=== PATIENT | female | born 1945 | race Caucasian/White ===

== ENCOUNTER 2022-08-16 12:44 | Inpatient (IN) | payer MEDICARE, SELFPAY ==
[2022-08-16] VITALS (12 sets, daily range): BP systolic 125–147; BP diastolic 51–89; PULSE 70–92; RESP 14–20; TEMP 36.2–38.8; O2SAT 81–100; BMI 15.4; BMI 16.2
--- NOTE | 2022-08-16 12:48 | CT_ITS ---
We are attempting to reach an attending provider to discuss findings. An addendum with communication details will be sent when the communication is complete. EXAM: CT HEAD WITHOUT INTRAVENOUS CONTRAST CLINICAL INDICATION: Neuro deficit, acute, stroke suspected TECHNIQUE: Multiple axial images were obtained of the head without intravenous contrast. This CT exam was performed using one or more of the following dose reduction techniques: automated exposure control, adjustment of the mA and/or kV according to patient size, and/or use of iterative reconstruction technique. This report was created using [employer] technology. COMPARISON: None. FINDINGS: BRAIN AND EXTRA-AXIAL SPACES: Areas of diminished white matter density noted within both cerebral hemispheres suggestive of chronic microvascular change. Prominence of the cortical sulci and ventricles related to volume loss change. No intra- or extra-axial hemorrhage. No evidence of acute infarct. No intracranial mass or mass effect. There is preservation of the chavez/white matter interface. Posterior fossa structures are unremarkable. Basal cisterns are patent. BONES/JOINTS: No suspicious lytic or blastic abnormality. SINUSES: No acute sinusitis. MASTOID AIR CELLS: Normal. Clear. ORBITS: Visualized globes, extraocular muscles, optic nerves and retrobulbar fat appear unremarkable. CT/STROKE Brain/Head without Cont IMPRESSION: 1. No acute intracranial abnormality. 2. Senescent changes. Aspect score 10. Electronically Signed: Jordan Ivan MD at 13:00 EDT ,
--- NOTE | 2022-08-16 12:48 | CT_ITS ---
We are attempting to reach an attending provider to discuss findings. An addendum with communication details will be sent when the communication is complete. INDICATION: Neuro deficit, acute, stroke suspected EXAMINATION: CTA HEAD - CTA Head and Neck W/ Contrast Injection (and W/O Contrast Images if performed) TECHNIQUE: [place]/head CT angiogram protocol was performed following IV contrast. Routine carotid CT angiogram protocol was performed without and with IV contrast. NASCET criteria using the distal ICAs for comparison were used for evaluation of stenoses. 3D reconstructions were reviewed of the CT angiogram head and neck. A radiation dose optimization technique was used for this scan. IV Contrast dosage and agent: 100 cc [id number] COMPARISON: None. FINDINGS: --Anterior cerebral circulation: ACAs: No significant stenosis at the visualized segments. ACOM: Absent. MCAs: No significant stenosis at the visualized segments. --Posterior cerebral circulation: PCOMs: Absent referral nurse: No significant stenosis at the visualized segments. BASILAR ARTERY: No significant stenosis. --Carotid and vertebral circulation: AORTIC ARCH AND BRANCHES: Normal anatomy, patent. RIGHT CCA: No occlusion, significant stenosis or dissection. RIGHT ICA: No occlusion, significant stenosis or dissection. LEFT CCA: No occlusion, significant stenosis or dissection. LEFT ICA: Minor calcific plaquing at the origin. No occlusion, significant stenosis or dissection. RIGHT VERTEBRAL ARTERY: No occlusion, significant stenosis or dissection. LEFT VERTEBRAL ARTERY: No occlusion, significant stenosis or dissection. NECK SOFT TISSUES: Unremarkable. LUNG APICES: Clear. BONES: Unremarkable. CT/STROKE CTA Head AND Neck W/Con IMPRESSION: Unremarkable CTA Head and Neck. Electronically Signed: Jordan Ivan MD at 13:10 EDT ,
--- NOTE | 2022-08-16 12:48 | EKG12_ITS ---
Test Reason : POSS STROKE Blood Pressure : / mmHG Vent. Rate : 078 BPM Atrial Rate : 078 BPM P-R Int : 194 ms QRS Dur : 096 ms QT Int : 380 ms P-R-T Axes : 074 -76 077 degrees QTc Int : 433 ms Normal sinus rhythm Left axis deviation Abnormal ECG Confirmed by LASHANDA LEMUS, CHILANGO ([id number]), videotape editor MAHESH MCCORMACK ([id number]) on 08/18/2022 10:01:18 AM Referred By: Confirmed By:CHILANGO PYLE MD
--- NOTE | 2022-08-16 13:04 | CM.ED ---
Social Work Note Referral Source: stroke alert Referral Reason: emotional support SW responded to stroke alert and met with patient's and daughter. SW introduced herself and role as [facility] [employer] Steamer Tender and explained SW responds to provide family with support. Patient's and daughter briefly engaged in conversation, but report no needs at this time. SW remains available if needs arise. Alexia Nava LOBBYIST, BI
[2022-08-16 13:06] LABS: Absolute Lymphocyte Count 0.97 X10^3/uL (0.83-4.51); Absolute Neutrophil Count 2.4 X10^3/uL (2.0-7.7); Basophil# 0.05 X10^3/uL; Basophil% 1.2 % (0-1); Eosinophil# 0.06 X10^3/uL; Eosinophils% 1.5 % (0-5); Hematocrit 38.4 % (37-47); Hemoglobin 13.3 g/dL (12.0-15.0); Lymphocyte # 0.97 X10^3/ul (0.83-4.51); Lymphocyte % 24.2 % (19-41); Mean Corp Hgb Conc 34.6 g/dL (32-36); Mean Corpuscular Hgb 32.9 pg (27.0-32.0); Mean Platelet Vol. 10.1 fl (6.2-12.0); Monocyte# 0.51 X10^3/uL; Monocyte% 12.7 % (0-10); NRBC Flagged by Analyzer 0 % (0-5); Neutrophil % 59.9 % (47-70); Platelet Count 177 K/mm3 (150-450); RBC Distribution Width CV 11.5 % (11.6-14.6); RBC Distribution Width SD 40.1 fl (35.1-43.9); Red Blood Count 4.04 M/mm3 (4.2-5.4)
[2022-08-16 13:16] LABS: International Normalized Ratio 1.1; Partial Thromboplast Time 25.6 Seconds (24.1-36.2); Prothrombin Time (Protime)PT. 13.4 SECONDS (11.7-14.9)
[2022-08-16] MEDS: LORazepam 2 MG/ML Syringe 0.5 MG IV ×4 (13:20→19:18)
[2022-08-16 13:23] LABS: Anion Gap 8 (5-15); BUN 10 mg/dL (7-18); BUN/Creat Ratio 20.2 RATIO (10-20); Calcium,Total 8.8 mg/dL (8.5-10.1); Chloride 89 mmol/L (98-107); EST Glomerular Filtration Rate 128 mL/min (>60); Est Glom Filt Rate - Afr Amer 155 mL/min (>60); Estimated Creatinine Clearance 30.81 ml/min; Glucose 135 mg/dL (74-106); Potassium 3.6 mmol/L (3.5-5.1); Sodium Level 127 mmol/L (136-145); Troponin-I HS 8 pg/mL (3.0-54.0)
[2022-08-16 13:49] LABS: Bacteria 0 SEEN /hpf (None Seen); Mucous, Urine 0 SEEN /hpf (<or=2+); Red Blood Cells-Urine 0 SEEN /hpf (0-5); Squamous Epithelial Cells - UA 0 SEEN /hpf (5-10); White Blood Cells 0 SEEN /hpf (0-5)
[2022-08-16 13:51] LABS: Color, Urine Yellow (Yellow); Glucose, Dipstick Normal (Normal); Ketone-Dipstick Negative (Negative); Leukocyte Esterase-Dipstick Negative /ul (Negative); Nitrite-Dipstick Negative (Negative); Occult Blood-Urine Negative /ul (Negative); Protein-Dipstick Negative (Negative); Specific Gravity, Urine 1.015 (1.002-1.030); Urine Bilirubin Dipstick Negative (Negative); Urine Clarity Clear (Clear); Urine Urobilinogen Normal (Normal)
[2022-08-16 14:00] LABS: AST(SGOT) 29 U/L (15-37); Alanine Aminotransfer ALT/SGPT 39 U/L (13-56); Albumin, Serum 4.2 g/dL (3.2-5.0); Alkaline Phosphatase 64 U/L (45-117); Bilirubin, Direct 0.18 mg/dL (0.00-0.30); Globulin 2.4 g/dL (2.2-4.2); Protein, Total 6.6 g/dL (6.4-8.2)
--- NOTE | 2022-08-16 14:00 | ED.RN ---
THIS RN SPOKE WITH . NOTIFIED OF LOW SODIUM LEVEL AND THAT PATIENT HAD TO HAVE A ZEE PLACED DUE TO HER INCONTINENCE, ACUITY AND CONFUSION. DR. RAIN STATES OK TO DISCONTINUE NIH
[2022-08-16 14:08] LABS: Ammonia < 10.0 umol/L (11-32)
--- NOTE | 2022-08-16 14:17 | ED.VIS.STROK ---
HPI History of Present Illness Chief Complaint: Stroke Alert Informant: spouse/S.O. Onset/Context/Timing Onset: Today Context: Sudden Onset Timing: Continuous Quality and Location: Positive for Expressive Aphasia Onset: 11 AM today Worsened by: Nothing Relieved by: Nothing Associated Symptoms Associated Symptoms: Negative for Headache, Nausea, Vomiting or Chest Pain Narrative Narrative: Patient presents with sudden onset of confusion that began today. states patient was acting normally at 11 AM. states that he left and came back home at approximately 11:15 AM. states that she was confused and would only answer thank youto his questions. states the patient had an episode of stool incontinence and she was weak in both legs. states she had difficulty standing. Upon arrival here, the patient was able to stand and pivot into a wheelchair. denies any unilateral weakness. Patient is confused and is a poor informant. Patient is only answers thank you to any questions. [facility] Medical History Anxiety Home Medications lorazepam 0.5 mg tablet (Ativan) 0.5 mg PO QHS PRN Anxiety 08/16/22 [History Last Taken Unknown] Allergy/AdvReac Type Severity Reaction Status Date / Time lactose [dairy lactose] AdvReac Food Verified 08/16/22 12:55 Allergy Surgical History Hx of hysterectomy Social History (Updated 08/16/22 @ 14:[address] Kalin Macedo DO) Smoking Status: Former smoker alcohol intake: former year quit: 2022 details: Recently quit drinking alcohol 2-3 weeks ago. ROS ROS ED ROS Narrative Review of systems was obtained from family. Constitutional Constitutional ED: Denies chills or fever(s) Eyes Eyes: Denies blurry vision or change in vision ENT ENT ED: Denies rhinorrhea or sore throat Cardiovascular Cardiovascular: Denies chest pain or palpitations Respiratory/Chest Respiratory/Chest: Denies cough or dyspnea Gastrointestinal Gastrointestinal: Denies nausea or vomiting Genitourinary Genitourinary ED: Denies dysuria or hematuria Musculoskeletal Musculoskeletal: Denies back pain or neck pain Integumentary Denies abscess or rash Neurologic Neurologic: Denies headache(s) or weakness Allergic/Immunologic Allergic/Immunologic ED: Denies mouth swelling or urticaria EXAM Physical Exam Const Vital Signs: 08/16/22 12:46 08/16/22 12:49 08/16/22 12:53 Temperature 97.2 F L Temperature Source Temporal Pulse Rate 70 70 Respiratory Rate 16 14 Blood Pressure 147/67 H 147/67 H Blood Pressure Mean 93 93 Pulse Ox 100 100 100 Oxygen Delivery Method Room Air Room Air Room Air Oxygen Flow Rate (L/min) 08/16/22 13:03 08/16/22 14:11 08/16/22 14:44 Temperature Temperature Source Pulse Rate 87 82 Respiratory Rate 17 16 Blood Pressure 145/74 H 127/68 H Blood Pressure Mean 97 87 Pulse Ox 99 98 81 Oxygen Delivery Method Room Air Room Air Oxygen Flow Rate (L/min) 08/16/22 14:44 Temperature Temperature Source Pulse Rate Respiratory Rate Blood Pressure Blood Pressure Mean Pulse Ox 98 Oxygen Delivery Method Nasal Cannula Oxygen Flow Rate (L/min) 2 Positive well nourished and well developed General Appearance ED: well developed and NAD HEENT Reports moist mucous membranes Eyes PERRL and EOMs intact bilaterally Neck supple and no JVD Chest Wall inspection of chest normal and palpation of chest normal Resp normal respiratory effort and clear to auscultation bilaterally Cardio Rate: regular rate Rhythm: regular rhythm GI normal to inspection, nondistended, normoactive bowel sounds, soft to palpation, non-tender and non-distended Neuro CN's II-XII intact bilaterally and no sensory deficits noted Og Coma Scale: document GCS findings Spontaneous Obeys Commands Confused 14 Sensorium / Orientation: alert, oriented to person and confused Speech: speech normal Motor Exam: strength 5/5 throughout NIHSS NIHSS Initial: 1a Level of Consciousness: 1 1b LOC Questions (Score 2 if aphasic/stupor): 1 1c LOC Commands (Only score 1st attempt): 1 2 Best Gaze (If aphasic, use reflexive mvmts.): 0 3 Visual: 0 4 Facial Palsy: 0 5 Motor Arm Right (UN = amputation/fusion): 0 5 Motor Arm Left: 0 6 Motor Leg Right: 0 6 Motor Leg Left: 0 8 Sensory (Aphasia/stupor=0 or 1, coma=2): 0 9 Best Language: 0 11 Extinction and Inattention (only scored if +): 0 Total Score: 3 MDM MDM MDM Narrative Medical decision making narrative: Due to the sudden onset of the confusion within the last 3 hours, stroke alert was called. Differential diagnosis includes stroke, intracranial bleeding, cardiac dysrhythmia, cardiac ischemia, electrolyte abnormality, renal failure, encephalopathy, infection, sepsis, and delirium tremens. CT scan of the brain will be obtained to assess for intracranial bleeding. CTA of the head and neck will be obtained to assess for large vessel occlusion and carotid stenosis. EKG will be obtained to assess for cardiac dysrhythmia and cardiac ischemia. CBC will be obtained to assess for leukocytosis and anemia. Basic metabolic profile will be obtained to assess for renal function and electrolyte abnormality. Hepatic profile will be obtained to assess for hepatic function. Ammonia level will be obtained to assess for hepatic encephalopathy. PT was INR and PTT will be obtained to assess for coagulopathy. High-sensitivity troponin will be obtained to assess for cardiac ischemia. Urinalysis will be obtained to assess for urinary tract infection and hematuria. COVID-19 rapid antigen will be obtained to assess for COVID infection. Influenza A and influenza B antigens will be obtained to assess for influenza infection. Arterial blood gas will be obtained to assess for hypercarbia. Lactic acid will be obtained to assess for sepsis. Lab Data Attestation: I reviewed the patient's lab results. Lab results narrative: CBC was reviewed. White blood cell count was slightly low at 4.0. The remainder was within normal limits. Basic metabolic profile was reviewed. Sodium was low at 127 and chloride was low at 89. Renal function was within normal limits. Glucose was normal at 135. High-sensitivity troponin was normal at 8. PT with INR and PTT were within normal limits. Hepatic profile was reviewed and was within normal limits. Serum ammonia level was reviewed and was less than 10. Urinalysis was reviewed and does not show any evidence of urinary tract infection or hematuria. Lactate was reviewed and was slightly elevated at 2.1. COVID-19 rapid antigen was reviewed and was negative. Influenza A and influenza B antigens were reviewed and were negative. Arterial blood gas was reviewed and shows a pH of 7.407, PCO2 of 49.3, PO2 of 77.5, bicarb of 31, and oxygen saturation of 95.2% on room air. Labs: Laboratory Results - last 24 hr 08/16/22 08/16/22 08/16/22 12:45 12:45 12:45 WBC 4.0 L RBC 4.04 L Hgb 13.3 Hct 38.4 MCV 95.0 MCH 32.9 H MCHC 34.6 RDW Std Deviation 40.1 RDW Coeff of Bruna 11.5 L Plt Count 177 MPV 10.1 Immature Gran % (Auto) 0.500 Neut % (Auto) 59.9 Lymph % (Auto) 24.2 [place] % (Auto) 12.7 H Eos % (Auto) 1.5 Baso % (Auto) 1.2 H Absolute Neuts (auto) 2.4 Absolute Lymphs (auto) 0.97 Nucleated RBC % 0 PT 13.4 INR 1.1 APTT 25.6 Sodium 127 L Potassium 3.6 Chloride 89 L Carbon Dioxide 30.0 Anion Gap 8 BUN 10 Creatinine 0.50 L Estim Creat Clear Calc 30.81 Est GFR (MDRD) Af Amer 155 Est GFR (MDRD) Non-Af 128 BUN/Creatinine Ratio 20.2 H Glucose 135 H Lactic Acid Calcium 8.8 Total Bilirubin Direct Bilirubin AST ALT Alkaline Phosphatase Ammonia Troponin I High Sens 8 Total Protein Albumin Globulin Urine Color Urine Clarity Urine pH Ur Specific [place] Urine Protein Urine Glucose (UA) Urine Ketones Urine Occult Blood Urine Nitrite Urine Bilirubin Urine Urobilinogen Ur Leukocyte Esterase Urine RBC Urine WBC Ur Squamous Epith Cells Urine Bacteria Urine Mucus 08/16/22 08/16/22 08/16/22 12:45 13:30 13:30 WBC RBC Hgb Hct MCV MCH MCHC RDW Std Deviation RDW Coeff of Bruna Plt Count MPV Immature Gran % (Auto) Neut % (Auto) Lymph % (Auto) [place] % (Auto) Eos % (Auto) Baso % (Auto) Absolute Neuts (auto) Absolute Lymphs (auto) Nucleated RBC % PT INR APTT Sodium Potassium Chloride Carbon Dioxide Anion Gap BUN Creatinine Estim Creat Clear Calc Est GFR (MDRD) Af Amer Est GFR (MDRD) Non-Af BUN/Creatinine Ratio Glucose Lactic Acid 2.1 H* Calcium Total Bilirubin 0.50 Direct Bilirubin 0.18 AST 29 ALT 39 Alkaline Phosphatase 64 Ammonia < 10.0 L Troponin I High Sens Total Protein 6.6 Albumin 4.2 Globulin 2.4 Urine Color Urine Clarity Urine pH Ur Specific [place] Urine Protein Urine Glucose (UA) Urine Ketones Urine Occult Blood Urine Nitrite Urine Bilirubin Urine Urobilinogen Ur Leukocyte Esterase Urine RBC Urine WBC Ur Squamous Epith Cells Urine Bacteria Urine Mucus 08/16/22 13:40 WBC RBC Hgb Hct MCV MCH MCHC RDW Std Deviation RDW Coeff of Bruna Plt Count MPV Immature Gran % (Auto) Neut % (Auto) Lymph % (Auto) [place] % (Auto) Eos % (Auto) Baso % (Auto) Absolute Neuts (auto) Absolute Lymphs (auto) Nucleated RBC % PT INR APTT Sodium Potassium Chloride Carbon Dioxide Anion Gap BUN Creatinine Estim Creat Clear Calc Est GFR (MDRD) Af Amer Est GFR (MDRD) Non-Af BUN/Creatinine Ratio Glucose Lactic Acid Calcium Total Bilirubin Direct Bilirubin AST ALT Alkaline Phosphatase Ammonia Troponin I High Sens Total Protein Albumin Globulin Urine Color Yellow Urine Clarity Clear Urine pH 8.0 Ur Specific [place] 1.015 Urine Protein Negative Urine Glucose (UA) Normal Urine Ketones Negative Urine Occult Blood Negative Urine Nitrite Negative Urine Bilirubin Negative Urine Urobilinogen Normal Ur Leukocyte Esterase Negative Urine RBC 0 SEEN Urine WBC 0 SEEN Ur Squamous Epith Cells 0 SEEN Urine Bacteria 0 SEEN Urine Mucus 0 SEEN ABG Data ABG results: ABG 08/16/22 14:30 Specimen Type ART pH 7.41 Bicarbonate Actual 31.0 H Total CO2 33 Base Excess 6 H O2 Saturation 95 ABG pCO2 49.3 H ABG pO2 78 O2 Delivery Device Room Air Radiography Chest X-Ray - ED: 1 View, Read by ED Physician, Read by Radiologist and No Acute Disease Diagnostic Testing: Clinical Impression(s) from Imaging Studies Brain CT 08/16/22 12:48 IMPRESSION: 1. No acute intracranial abnormality. 2. Senescent changes. Aspect score 10. Electronically Signed: Jordan Ivan MD at 13:00 EDT Reading Location ID and State: [id number] Tel , Service support , ADDENDUM: 08/16/22 1308 IMPRESSION: 1. No acute intracranial abnormality. 2. Senescent changes. Aspect score 10. N.B. : The above Results were Read Back by Jordan Ivan MD to Kalin Macedo DO, and understanding confirmed on 08/16/2022 13:01:59 (ET). Electronically Signed: Jordan Ivan MD at 13:00 EDT , Head/Neck CTA 08/16/22 12:48 IMPRESSION: Unremarkable CTA Head and Neck. Electronically Signed: Jordan Ivan MD at 13:10 EDT , ADDENDUM: 08/16/22 1322 IMPRESSION: Unremarkable CTA Head and Neck. N.B. : The above Results were Read Back by Jordan Ivan MD to Kalin Mcaedo DO, and understanding confirmed on 08/16/2022 13:15:30 (ET). Electronically Signed: Jordan Ivan MD at 13:10 EDT , Chest X-Ray 08/16/22 14:25 IMPRESSION: No acute cardiopulmonary disease. Electronically Signed: Jordan Ivan MD at 14:44 EDT , CT scan of the brain was obtained. There is no acute intracranial abnormality. This was interpreted by the radiologist and was also independently reviewed by myself. CTA of the head and neck was obtained. There is no evidence of large vessel occlusion. There is no evidence of carotid or vertebral stenosis. This was interpreted by the radiologist and was also independently reviewed by myself. Portable 1 view chest x-ray was obtained. On my independent interpretation, lung marsh are clear. There is normal cardiac silhouette. Bony thorax is normal. There is no acute process noted. Radiologist also interpreted the x-ray and agrees. EKG Initial EKG: Attestation: I personally reviewed and interpreted this EKG as follows: Interpretation: Sinus Rhythm (78) and No Acute Injury Pattern Comments: EKG was obtained. On my independent interpretation, it showed a normal sinus rhythm with a rate of 78. [place] interval, QRS interval, and QTc intervals were all normal. There is left axis deviation at -76. There are no acute ST or T wave changes. Prior EKG tracings: not available for review Prior: No Prior Management Discussion w/another healthcare provider: Hospitalist, Termite Technician (Stroke neurologist) and Radiologist Treatment and Re-Evaluation Narrative: Case was discussed with the stroke neurologist Dr. Jo. He felt that this was not an acute stroke and did not recommend any thrombolytics. He felt that the patient could be admitted here and work-up for encephalopathy. He did also recommend obtaining a follow-up MRI. Patient was given IV fluids. Patient was given a dose of Ativan for her agitation. Patient was also given a dose of thiamine and folate for possible Warnicke's encephalopathy since she just recently stopped ranking alcohol 3 weeks ago. Patient is still confused on reevaluation. Patient was given a repeat dose of Ativan. Case was discussed with the hospitalist, Dr. Rico. She will admit the patient to PCU. Family understands and is agreeable with the plan. All questions were answered. Critical Care Time Critical Care Time: Yes Critical care time (excluding procedures): 30-74 minutes (37), Including time spent:, Discussing w/Patient &/or Family/Software Packager, Discussing w/Consultants, Arranging Admission or Transfer and Performing Direct Patient Care at Bedside Discharge Plan Dx/Rx/DC Orders Clinical Impression: Acute confusion, Encephalopathy acute Disposition Disposition: Acute Care [facility]
[2022-08-16 14:18] LABS: Lactic Acid 2.1 mmol/L (0.4-1.9)
[2022-08-16] MEDS: 0.9% Normal Saline 1,000 ML 1000 ML IV (14:24)
--- NOTE | 2022-08-16 14:25 | RAD_ITS ---
EXAM: XR CHEST, 1 VIEW CLINICAL INDICATION: Neuro deficit, acute, stroke suspected TECHNIQUE: Frontal view of the chest. This report was created using [employer] report generation technology. COMPARISON: None. FINDINGS: LUNGS AND PLEURAL SPACES: Normal. No consolidation or edema. No pneumothorax. No effusion. HEART: Normal heart size. MEDIASTINUM: No mediastinal or hilar mass. BONES/JOINTS: No acute abnormality. SOFT TISSUES: Normal. RAD/Chest 1 View IMPRESSION: No acute cardiopulmonary disease. Electronically Signed: Jordan Ivan MD at 14:44 EDT ,
[2022-08-16 14:35] LABS: Base Excess 6 mmol/L (-2 to +2); Blood Gas Specimen Type ART; O2 Delivery Device Room Air; PO2 78 mmHG (75-100); SO2 95 % (95-99); Total Carbon Dioxide 33 mmol/L; pCO2 49.3 mmHg (35-45); pH 7.41 (7.35-7.45)
--- NOTE | 2022-08-16 15:37 | HP.PCM.HOS_ITS ---
HPI - General General Date of Admission: 08/16/22 Date of Service: 08/16/22 Chief Complaint: AMS HPI Narrative RADHA NURSE, is a Radha Nurse is a 76y/o female w/ hx of anxiety who prsented to [facility] 08/16/22 as a stroke alert. She was in her normal health at 11 AM when her left and when he came back at 1115 she was having difficulty with words and she was confused. She presented to the ED as a stroke alert but teleneurology did not think she is a thrombolytic candidate. She had ABG which showed pH of 7.407, PCO2 of 49.3, PO2 of 77.5, bicarb of 31 and she was 95% on room air. Does have a sodium of 127 and a chloride of 89 with no previous values. UA not suggestive of UTI. Troponin of 8, ammonia and hepatic profile within normal limits. Reportedly has history of drinking 12 ounces of wine a night and stopped several weeks ago. Not improving in ED, hospitalist consulted for admission for encephalopathy as well as further stroke work-up. Evaluated patient at bedside with daughter and . They report she is usually very sharp and active and walks twice a day and this is a marked change from baseline. Her reports that she was fine at 11 AM and was on the treadmill and then walked upstairs and she was having difficulty with getting her words out and was confused. They do report drinking history and reports she quit drinking 2 weeks ago and had a difficult time with quitting but is no longer drinking. They do note that she does not eat well but tries to drink liquids, has a history of anorexia that they report is fairly well managed but she still very thin. They also report that she had a fall in May and hurt one of her hips and has had significant pain since that time and is still able to walk but has difficulty lying on that side, though they are unsure which side. They deny that she has had any other complaints leading up to this but notes that she hates doctors and hospitals and has not had her hip imaged. [facility] Medical History Anxiety Home Medications lorazepam 0.5 mg tablet (Ativan) 0.5 mg PO QHS PRN Anxiety 08/16/22 [History Last Taken Unknown] Allergy/AdvReac Type Severity Reaction Status Date / Time lactose [dairy lactose] AdvReac Food Verified 08/16/22 12:55 Allergy Surgical History Hx of hysterectomy Social History (Updated 08/16/22 @ 14:[address] Kalin Macedo, ) Smoking Status: Former smoker alcohol intake: former year quit: 2022 details: Recently quit drinking alcohol 2-3 weeks ago. ROS ROS Narrative Unable to obtain secondary to mental status Vital Signs Vital Signs Vital Signs: 08/16/22 12:46 08/16/22 12:49 08/16/22 12:53 Temperature 97.2 F L Temperature Source Temporal Pulse Rate 70 70 Respiratory Rate 16 14 Blood Pressure 147/67 H 147/67 H Blood Pressure Mean 93 93 Pulse Ox 100 100 100 Oxygen Delivery Method Room Air Room Air Room Air Oxygen Flow Rate (L/min) 08/16/22 13:03 08/16/22 14:11 08/16/22 14:44 Temperature Temperature Source Pulse Rate 87 82 Respiratory Rate 17 16 Blood Pressure 145/74 H 127/68 H Blood Pressure Mean 97 87 Pulse Ox 99 98 81 Oxygen Delivery Method Room Air Room Air Oxygen Flow Rate (L/min) 08/16/22 14:44 Temperature Temperature Source Pulse Rate Respiratory Rate Blood Pressure Blood Pressure Mean Pulse Ox 98 Oxygen Delivery Method Nasal Cannula Oxygen Flow Rate (L/min) 2 Weight Weight: 42.1 kg Body Mass Index (BMI) 15.4 Physical Exam Narrative General: Alert, unable to answer orientation questions, irritable, very thin HEENT: Atraumatic, normocephalic Eyes: Anicteric, normal conjunctiva, extraocular movements grossly intact, would not follow finger, pupils equal Neck: Supple Respiratory: Clear to auscultation bilaterally, normal respiratory effort Cardiovascular: Regular rate and rhythm GI: Soft, nontender, nondistended Extremities: No edema Musculoskeletal: Moving all extremities, would not cooperate with exam Neuro: Has expressive aphasia, moving all extremities, facial movement sy mmetrical, not slurring words, would not cooperate with further exam Skin: No rashes appreciated Psych: Uncooperative Results Lab / Micro Data Result Diagrams: 08/16/22 12:45 08/16/22 12:45 Labs: Laboratory Results - last 24 hr 08/16/22 12:45: WBC 4.0 L, RBC 4.04 L, Hgb 13.3, Hct 38.4, MCV 95.0, MCH 32.9 H, MCHC 34.6, RDW Std Deviation 40.1, RDW Coeff of Bruna 11.5 L, Plt Count 177, MPV 10.1, Immature Gran % (Auto) 0.500, Neut % (Auto) 59.9, Lymph % (Auto) 24.2, [place] % (Auto) 12.7 H, Eos % (Auto) 1.5, Baso % (Auto) 1.2 H, Absolute Neuts (auto) 2.4, Absolute Lymphs (auto) 0.97, Nucleated RBC % 0 08/16/22 12:45: PT 13.4, INR 1.1, APTT 25.6 08/16/22 12:45: Sodium 127 L, Potassium 3.6, Chloride 89 L, Carbon Dioxide 30.0, Anion Gap 8, BUN 10, Creatinine 0.50 L, Estim Creat Clear Calc 30.81, Est GFR (MDRD) Af Amer 155, Est GFR (MDRD) Non-Af 128, BUN/Creatinine Ratio 20.2 H, Glucose 135 H, Calcium 8.8, Troponin I High Sens 8 08/16/22 12:45: Total Bilirubin 0.50, Direct Bilirubin 0.18, AST 29, ALT 39, Alkaline Phosphatase 64, Total Protein 6.6, Albumin 4.2, Globulin 2.4 08/16/22 13:30: Ammonia < 10.0 L 08/16/22 13:30: Lactic Acid 2.1 H* 08/16/22 13:40: Urine Color Yellow, Urine Clarity Clear, Urine pH 8.0, Ur Specific [place] 1.015, Urine Protein Negative, Urine Glucose (UA) Normal, Urine Ketones Negative, Urine Occult Blood Negative, Urine Nitrite Negative, Urine Bilirubin Negative, Urine Urobilinogen Normal, Ur Leukocyte Esterase Negative, Urine RBC 0 SEEN, Urine WBC 0 SEEN, Ur Squamous Epith Cells 0 SEEN, Urine Bacteria 0 SEEN, Urine Mucus 0 SEEN Micro: Microbiology 08/16/22 13:30 Nasal Secretion SARS-CoV-2 & FLU Antigen (Rapid) - Final ABG Data ABG results: ABG 08/16/22 14:30 Specimen Type ART pH 7.41 Bicarbonate Actual 31.0 H Total CO2 33 Base Excess 6 H O2 Saturation 95 ABG pCO2 49.3 H ABG pO2 78 O2 Delivery Device Room Air Radiology Impression Brain CT 08/16/22 12:48 IMPRESSION: 1. No acute intracranial abnormality. 2. Senescent changes. Aspect score 10. Electronically Signed: Jordan Ivan MD at 13:00 EDT , ADDENDUM: 08/16/22 1308 IMPRESSION: 1. No acute intracranial abnormality. 2. Senescent changes. Aspect score 10. N.B. : The above Results were Read Back by Jordan Ivan MD to Kalin Macedo DO, and understanding confirmed on 08/16/2022 13:01:59 (ET). Electronically Signed: Jordan Ivan MD at 13:00 EDT Reading Location ID and State: [facility] / [place] Tel , Service support , Head/Neck CTA 08/16/22 12:48 IMPRESSION: Unremarkable CTA Head and Neck. Electronically Signed: Jordan Ivan MD at 13:10 EDT , ADDENDUM: 08/16/22 1322 IMPRESSION: Unremarkable CTA Head and Neck. N.B. : The above Results were Read Back by Jordan Ivan MD to Kalin Macedo DO, and understanding confirmed on 08/16/2022 13:15:30 (ET). Electronically Signed: Jordan Ivan MD at 13:10 EDT , Chest X-Ray 08/16/22 14:25 IMPRESSION: No acute cardiopulmonary disease. Electronically Signed: Jordan Ivan MD at 14:44 EDT , Assessment & Plan Assessment/Plan (1) Acute confusion: (2) Encephalopathy acute: PLAN: Plan #Acute encephalopathy/expressive aphasia/CVA r/o -Stroke: ED and reportedly was not a candidate for tenecteplase -CT head with chronic changes, CTA unremarkable -We will order MRI with pretreatment, if unable to tolerate this we will repeat CT at 24 hours -NIH every 4, permissive hypertension -We will check echocardiogram -A.m. lipid panel -Aspirin, statin -Ammonia within normal limits -We will check TSH, B12, folate, vitamin D -Check alcohol level and UDS -Has hyponatremia, unclear if acute or chronic, suspect mixed picture, is receiving gentle hydration and will order further work-up -VBG with slight elevation in CO2 -Significantly agitated, will give Risperdal twice daily and Ativan as as needed -PT/OT/speech eval's #Hyponatremia -Unclear if acute or chronic, suspect component of decreased solute with dehydration -We will order serum osmolality as well as urine studies and repeat BMP after gentle hydration #History of alcohol abuse -Check alcohol level -We will start thiamine and folate #Underweight /suspected malnutrition -BMI 15.4 and does have history of anorexia though family reports that this was fairly under control recently -Lower [place] diet once swallow eval performed -Nutrition consult #Fall with hip pain -Will check xray #DVT ppx: Heparin subcu Aidee Rico MD Time spent in the patient's overall evaluation,decision-making process, review of diagnostic data, adjustment of management, discussion with other providers, nursing nursing and ancillary staff involved in patient's care documentation, 60 minutes Charges/Coding Visit Charges Inpatient E&M: 73693 Init Hosp L2
--- NOTE | 2022-08-16 15:54 | ECHOL_ITS ---
Reason For Study: TIA/CVA Procedure This was a 2D Doppler, Color Flow transthoracic echocardiogram. The study was technically difficult. PT was uncooperative/combative. PT has no IV, has pulled out 3 IVs and attempted to pull out [place] multiple times. Exam performed portable in patient room. Left Ventricle Based upon the 2D echocardiographic images obtained there appears to be normal left ventricular size, wall motion, and systolic function. The estimated ejection fraction is 65 %. Unable to assess diastolic dysfunction. Right Ventricle Normal RV size. Normal systolic function. Atria Normal left atrium. Normal right atrium. No doppler evidence for ASD. Mitral Valve There is no mitral annular calcification. Moderate diffuse mitral valve thickening. The mitral valve chordae are thickened and/or calcified. Mild (1+) mitral valve insufficiency. Tricuspid Valve Moderate diffuse thickening of the tricuspid valve. Mild to moderate (1-2+) tricuspid valve insufficiency. Right ventricular systolic pressure estimated to be 27 mmHg. Aortic Valve Trisinus/trileaflet aortic valve. Mild diffuse aortic valve thickening. Pulmonic Valve The pulmonic valve is not well visualized. Great Vessels Normal sized aortic root. Pericardium/Pleural No pericardial effusion. Medication Unable to assess for PFO due to no IV. MMode/2D Measurements & Calculations LVIDd: 3.9 cm IVSd: 0.89 cm Ao root diam: 3.5 cm LVIDs: 1.9 cm LVPWd: 1.0 cm RVDd: 3.3 cm FS: 51.8 % LA A4 area: 9.9 cm2 LA dimension(2D): 2.7 cm RA A4 area: 15.7 cm2 Time Measurements MV dec time: 0.27 sec Doppler Measurements & Calculations MV E max jhoan: 65.7 cm/sec TR max jhoan: 243.4 cm/sec MV A max jhoan: 100.7 cm/sec TR max P.7 mmHg MV E/A: 0.65 ECHO/Echo, Limited Study Interpretation Summary The study was technically difficult. Based upon the 2D echocardiographic images obtained there appears to be normal left ventricular size, wall motion, and systolic function. The estimated ejection fraction is 65 %. Moderate diffuse mitral valve thickening. The mitral valve chordae are thickened and/or calcified. Mild (1+) mitral valve insufficiency. Moderate diffuse thickening of the tricuspid valve. Mild to moderate (1-2+) tricuspid valve insufficiency. Mild diffuse aortic valve thickening. Right ventricular systolic pressure estimated to be 27 mmHg. Unable to assess diastolic dysfunction. Ordering Physician: Aidee Rico Referring Physician: Chata Barton Performed By: Sandra Pinto, DAVID, RVT
[2022-08-16 16:38] LABS: Amphetamine Urine VISTA NEGATIVE (<1000 ng/mL); Barbiturate Urine VISTA NEGATIVE (< 200 ng/mL); Benzodiazepine Urine VISTA NEGATIVE (< 200 ng/mL); Cocaine Urine VISTA NEGATIVE (< 300 ng/mL); Ecstacy Urine VISTA NEGATIVE (< 500 ng/mL); Methadone Urine VISTA NEGATIVE (< 300 ng/mL); PCP Urine VISTA NEGATIVE (< 25 ng/mL); THC Urine VISTA NEGATIVE (< 50 ng/mL); Vista UDS pH Range 7
[2022-08-16 17:07] LABS: Thyroid Stim Hormone (TSH) 8.14 uIU/mL (0.358-3.74)
[2022-08-16] MEDS: 0.9% Normal Saline 1,000 ML 100 ML IV (17:15)
[2022-08-16] MEDS: Ketorolac 15 MG/ML Vial IV (17:26)
[2022-08-16 17:36] LABS: Reflex Lactate? Y
[2022-08-16] MEDS: Heparin Injection (Vial) 5,000 UNIT/ML VIAL 5000 UNIT SC (21:07)
[2022-08-16] MEDS: 0.9% Saline Lock 10 ML Syringe IV (21:07)
[2022-08-16 21:58] LABS: Lactic Acid 0.7 mmol/L (0.4-1.9)
[2022-08-16] MEDS: Acetaminophen 650 MG Suppository RC (22:42)
[2022-08-16 22:51] LABS: Anion Gap 10 (5-15); BUN 6 mg/dL (7-18); BUN/Creat Ratio 14.7 RATIO (10-20); Calcium,Total 8.1 mg/dL (8.5-10.1); Chloride 94 mmol/L (98-107); Creatinine, Serum 0.41 mg/dL (0.55-1.02); EST Glomerular Filtration Rate 160 mL/min (>60); Est Glom Filt Rate - Afr Amer 194 mL/min (>60); Estimated Creatinine Clearance 29.38 ml/min; Glucose 113 mg/dL (74-106); Sodium Level 133 mmol/L (136-145)
[2022-08-16 22:52] LABS: Osmolality, Serum 270 mOsm/KG (280-301)
[2022-08-16 22:55] LABS: Alcohol, Blood (Medical)-Serum < 3.0 mg/dL
[2022-08-16 23:01] LABS: Vitamin B12 580 pg/mL (211-911)
[2022-08-17] VITALS (9 sets, daily range): BP systolic 101–152; BP diastolic 49–68; PULSE 66–82; RESP 16–18; TEMP 36.5–38.8; O2SAT 92–98; BMI 16.2
[2022-08-17] MEDS: Acetaminophen 650 MG Suppository RC (05:52)
[2022-08-17 07:11] LABS: Absolute Lymphocyte Count 0.67 X10^3/uL (0.83-4.51); Absolute Neutrophil Count 4.3 X10^3/uL (2.0-7.7); Basophil# 0.03 X10^3/uL; Basophil% 0.5 % (0-1); Hematocrit 37.2 % (37-47); Hemoglobin 12.8 g/dL (12.0-15.0); Lymphocyte # 0.67 X10^3/ul (0.83-4.51); Lymphocyte % 11.6 % (19-41); Mean Corp Hgb Conc 34.4 g/dL (32-36); Mean Corpuscular Hgb 32.4 pg (27.0-32.0); Mean Corpuscular Volume 94.2 fL (81-99); Mean Platelet Vol. 9.9 fl (6.2-12.0); Monocyte% 13.8 % (0-10); NRBC Flagged by Analyzer 0 % (0-5); Neutrophil # 4.29 X10^3/uL (2.7-7.7); Neutrophil % 73.9 % (47-70); Platelet Count 147 K/mm3 (150-450); RBC Distribution Width CV 11.4 % (11.6-14.6); RBC Distribution Width SD 39.3 fl (35.1-43.9); Red Blood Count 3.95 M/mm3 (4.2-5.4); White Blood Count 5.8 K/mm3 (4.4-11.0)
[2022-08-17 07:41] LABS: ALB/GLOB Ratio 1.6 RATIO (0.9-2.4); AST(SGOT) 48 U/L (15-37); Alanine Aminotransfer ALT/SGPT 38 U/L (13-56); Albumin, Serum 3.9 g/dL (3.2-5.0); Alkaline Phosphatase 53 U/L (45-117); Anion Gap 9 (5-15); BUN 7 mg/dL (7-18); BUN/Creat Ratio 15.3 RATIO (10-20); Calcium,Total 8.2 mg/dL (8.5-10.1); Chloride 95 mmol/L (98-107); Cholesterol 159 mg/dL (200); Creatinine, Serum 0.46 mg/dL (0.55-1.02); EST Glomerular Filtration Rate 140 mL/min (>60); Est Glom Filt Rate - Afr Amer 170 mL/min (>60); Estimated Creatinine Clearance 29.38 ml/min; Globulin 2.4 g/dL (2.2-4.2); Glucose 108 mg/dL (74-106); High Density Lipoprotein 80 mg/dL; Protein, Total 6.3 g/dL (6.4-8.2); Sodium Level 132 mmol/L (136-145); Triglycerides 63 mg/dL; Very Low Density Lipoprotein 13 mg/dL (5-40)
[2022-08-17 08:09] LABS: Free T3 1.8 pg/mL (2.18-3.98); T4 Free Direct 1.27 ng/dL (0.76-1.46)
--- NOTE | 2022-08-17 08:50 | CASEMGMT ---
Patient's family brought in a copy of patient's healthcare power of ip technology transactions attorney and healthcare living will. Copies were placed in patient's chart. Family also brought in a copy of patient's current medical insurance card. A copy was made and sent to registration. Danisha PAT
--- NOTE | 2022-08-17 09:38 | PN.HOSP_ITS ---
Subjective Subjective Agitated overnight necessitating a sitter. Resting comfortably this morning Objective Data Objective Data Vital Signs: Vital Signs Temp Pulse Resp BP Pulse Ox O2 Del Method O2 Flow Rate 101.8 F H 80 16 101/55 L 92 Room Air 2 08/17/22 06:00 08/17/22 06:00 08/17/22 06:00 08/17/22 06:00 08/17/22 06:00 08/17/22 06:00 08/16/22 14:44 Oxygen Flow Rate (L/min) 2 Oxygen Delivery Method Room Air Weight: 88 lb 8 oz Body Mass Index (BMI) 16.2 Intake & Output: Intake and Output for Last 24 Hours 08/16/22 08/17/22 08/18/22 03:59 03:59 03:59 Intake Total 1101.2 / 1101.2 1000 / 1000 Output Total 4400 / 4400 350 / 350 Balance -3298.8 / -3298.8 650 / 650 Lab / Micro Data Result Diagrams: 08/17/22 07:05 08/17/22 07:05 Labs: Laboratory Results - last 24 hr 08/16/22 12:45: WBC 4.0 L, RBC 4.04 L, Hgb 13.3, Hct 38.4, MCV 95.0, MCH 32.9 H, MCHC 34.6, RDW Std Deviation 40.1, RDW Coeff of Bruna 11.5 L, Plt Count 177, MPV 10.1, Immature Gran % (Auto) 0.500, Neut % (Auto) 59.9, Lymph % (Auto) 24.2, [place] % (Auto) 12.7 H, Eos % (Auto) 1.5, Baso % (Auto) 1.2 H, Absolute Neuts (auto) 2.4, Absolute Lymphs (auto) 0.97, Nucleated RBC % 0 08/16/22 12:45: PT 13.4, INR 1.1, APTT 25.6 08/16/22 12:45: Sodium 127 L, Potassium 3.6, Chloride 89 L, Carbon Dioxide 30.0, Anion Gap 8, BUN 10, Creatinine 0.50 L, Estim Creat Clear Calc 30.81, Est GFR (M DRD) Af Amer 155, Est GFR (MDRD) Non-Af 128, BUN/Creatinine Ratio 20.2 H, Glucose 135 H, Calcium 8.8, Troponin I High Sens 8 08/16/22 12:45: Total Bilirubin 0.50, Direct Bilirubin 0.18, AST 29, ALT 39, Alkaline Phosphatase 64, Total Protein 6.6, Albumin 4.2, Globulin 2.4 08/16/22 12:45: Folate 28.70, TSH 8.14 H 08/16/22 13:30: Ammonia < 10.0 L 08/16/22 13:30: Lactic Acid 2.1 H* 08/16/22 13:40: Urine Color Yellow, Urine Clarity Clear, Urine pH 8.0, Ur Specific [place] 1.015, Urine Protein Negative, Urine Glucose (UA) Normal, Urine Ketones Negative, Urine Occult Blood Negative, Urine Nitrite Negative, Urine Bilirubin Negative, Urine Urobilinogen Normal, Ur Leukocyte Esterase Negative, Urine RBC 0 SEEN, Urine WBC 0 SEEN, Ur Squamous Epith Cells 0 SEEN, Urine Bact eria 0 SEEN, Urine Mucus 0 SEEN 08/16/22 13:40: Urine Opiates Screen NEGATIVE, Urine Methadone Screen NEGATIVE, Ur Barbiturates Screen NEGATIVE, Ur Phencyclidine Scrn NEGATIVE, Ur Amphetamines Screen NEGATIVE, MDMA (Ecstasy) Screen NEGATIVE, U Benzodiazepines Scrn NEGATIVE, Urine Cocaine Screen NEGATIVE, U Cannabinoids Screen NEGATIVE, Ur Drug Screen Comment 08/16/22 21:13: Ethyl Alcohol < 3.0 08/16/22 21:13: Vitamin B12 580 08/16/22 21:13: Sodium 133 L, Potassium 3.0 L, Chloride 94 L, Carbon Dioxide 29.0, Anion Gap 10, BUN 6 L, Creatinine 0.41 L, Estim Creat Clear Calc 29.38, Est GFR (MDRD) Af Amer 194, Est GFR (MDRD) Non-Af 160, BUN/Creatinine Ratio 14.7, Glucose 113 H, Calcium 8.1 L 08/16/22 21:13: Serum Osmolality 270 L 08/16/22 21:13: Lactic Acid 0.7 08/17/22 07:05: WBC 5.8, RBC 3.95 L, Hgb 12.8, Hct 37.2, MCV 94.2, MCH 32.4 H, MCHC 34.4, RDW Std Deviation 39.3, RDW Coeff of Bruna 11.4 L, Plt Count 147 L, MPV 9.9, Immature Gran % (Auto) 0.200, Neut % (Auto) 73.9 H, Lymph % (Auto) 11.6 L, [place] % (Auto) 13.8 H, Eos % (Auto) 0.0, Baso % (Auto) 0.5, Absolute Neuts (auto) 4.3, Absolute Lymphs (auto) 0.67 L, Nucleated RBC % 0 08/17/22 07:05: Sodium 132 L, Potassium 3.0 L, Chloride 95 L, Carbon Dioxide 28.0, Anion Gap 9, BUN 7, Creatinine 0.46 L, Estim Creat Clear Calc 29.38, Est GFR (MDRD) Af Amer 170, Est GFR (MDRD) Non-Af 140, BUN/Creatinine Ratio 15.3, Glucose 108 H, Calcium 8.2 L, Total Bilirubin 0.80, AST 48 H, ALT 38, Alkaline Phosphatase 53, Total Protein 6.3 L, Albumin 3.9, Globulin 2.4, Albumin/Globulin Ratio 1.6, Triglycerides 63, Cholesterol 159, LDL Cholesterol 66, VLDL Cholesterol 13, HDL Cholesterol 80 08/17/22 07:05: Free T4 1.27, Free T3 pg/dL 1.8 L Micro: Microbiology 08/16/22 13:30 Nasal Secretion SARS-CoV-2 & FLU Antigen (Rapid) - Final ABG Data ABG results: ABG 08/16/22 14:30 Specimen Type ART pH 7.41 Bicarbonate Actual 31.0 H Total CO2 33 Base Excess 6 H O2 Saturation 95 ABG pCO2 49.3 H ABG pO2 78 O2 Delivery Device Room Air Radiography Diagnostic Testing: Radiology Impression Brain CT 08/16/22 12:48 IMPRESSION: 1. No acute intracranial abnormality. 2. Senescent changes. Aspect score 10. Electronically Signed: Jordan Ivan MD at 13:00 EDT , ADDENDUM: 08/16/22 7580 IMPRESSION: 1. No acute intracranial abnormality. 2. Senescent changes. Aspect score 10. N.B. : The above Results were Read Back by Jordan Ivan MD to Kalin Macedo DO, and understanding confirmed on 08/16/2022 13:01:59 (ET). Electronically Signed: Jordan Ivan MD at 13:00 EDT Reading Location ID and State: [facility] / [place] Tel , Service support , Head/Neck CTA 08/16/22 12:48 IMPRESSION: Unremarkable CTA Head and Neck. Electronically Signed: Jordan Ivan MD at 13:10 EDT , ADDENDUM: 08/16/22 1322 IMPRESSION: Unremarkable CTA Head and Neck. N.B. : The above Results were Read Back by Jordan Ivan MD to Kalin Macedo DO, and understanding confirmed on 08/16/2022 13:15:30 (ET). Electronically Signed: Jordan Ivan MD at 13:10 EDT , Chest X-Ray 08/16/22 14:25 IMPRESSION: No acute cardiopulmonary disease. Electronically Signed: Jordan Ivan MD at 14:44 EDT , Physical Exam Narrative General: Alert, disoriented, agitated, No apparent distress HEENT: Atraumatic, PERRLA, EOMI, Normocephalic Oral: Moist Mucosa Neck: Supple, No JVD Lungs: Diminished, Normal air movement, No rhonchi, No wheeze, No rales Cardiovascular: Regular rate, Regular Rhythm, Normal S1, Normal S2, No murmurs Abdomen: Soft, Non Tender, Non-Distended, No Hepato-splenomegaly Extremities: No edema, Capillary Refill Less than 3 Seconds Skin: No rashes, No breakdown Musculoskeletal: No Tenderness to Palpation of Joints or Extremities Neurological: Cranial nerves II-XII grossly intact, Motor Exam 5/5 strength throughout, Sensory exam intact to light touch and pain Psych/Mental Status: Flat affect/agitated Assessment & Plan Assessment/Plan (1) Acute confusion: (2) Encephalopathy acute: PLAN: Plan 1. Acute encephalopathy with expressive aphasia here for CVA rule out ? She did quit drinking about 2 weeks ago so potentially prolonged withdrawal ? CTA of the head and neck was unremarkable, MRI is pending depending pretreatment otherwise we will need to repeat a CT scan tomorrow ? Echo pending ? TSH is elevated so we will obtain a free T3/T4 ? Given her agitation we will start risperidone 2. History of alcohol abuse/likely malnutrition ? She is very thin, Elise level was negative ? Continue with thiamine and folate DVT: Heparin Charges/Coding Visit Charges Inpatient E&M: 36525 Subs Hosp L2
[2022-08-17] MEDS: 0.9% Saline Lock 10 ML Syringe IV ×3 (11:16→23:01)
[2022-08-17] MEDS: Heparin Injection (Vial) 5,000 UNIT/ML VIAL 5000 UNIT SC ×2 (11:22→22:47)
--- NOTE | 2022-08-17 11:35 | CASEMGMT ---
RN CM Face to Face with patient for initial transition planning/care coordination assessment. RN CM introduced self and role at [facility]. Patient lying in bed, sleeping, and daughter at bedside. willing to participate in assessment and is able to answer all questions appropriately. Care providers, pharmacy, and demographics verified. Family wishes for patient to discharge home, will monitor progress with therapy for recommended disposition at discharge. states he has no further needs or concerns at this time. CM to follow for discharge planning needs that may arise. PCP: [facility] Specialists: Flavia [facility] dermatology Preferred Pharmacy: [facility] Insurance: [facility] Prescription Benefit: yes Living Will/HPOA: yes, Stephen Nurse LNOK: , daughter Living Arrangements: Patient lives with in a single story home with 2 steps and railing to enter the home. Patient was independent prior to hospitalization Transportation: self, DME/HHC: Patient has raised toilet and grab bars at home. No previous HHC or SNF Disposition Plan: TBD by course of treatment and progress with therapy. Margie SEGUNDON, RN, CM
--- NOTE | 2022-08-17 13:35 | RAD_ITS ---
STUDY: XR Hips Bilateral with Pelvis when performed; 2 Views 08/17/2022 1:40 PM REASON FOR EXAM: Female, 76 years old. fall with hip pain Pain TECHNIQUE: XR Hips Bilateral with Pelvis when performed; 2 Views COMPARISON: None FINDINGS: There is a non-specific bowel gas pattern. Normal visualized soft tissue structures.There are degenerative changes of the lumbar spine. Question hairline fracture of the left lesser trochanter. This is non displaced. CT can better evaluate. Normal bilateral iliac wings, sacroiliac joints and visualized sacrum. Normal visualized bilateral superior and inferior pubic rami. Normal pubic symphysis. Normal ischial tuberosities. There are osteoarthritic changes of the right femoral head with marginal osteophyte formation. There is osteoarthritic spur formation of the right acetabular rim. There is mild articular joint space narrowing of the right hip. There are osteoarthritic changes of the left femoral head with marginal osteophyte formation. There is osteoarthritic spur formation of the left acetabular rim. There is mild articular joint space narrowing of the left hip. RAD/Hips B/L min 2 views w/ Pelvis IMPRESSION: Degenerative findings of the hips. Question hairline fracture of the left lesser trochanter. This is non displaced. CT can better evaluate. Electronically Signed: Jose Antonio Dumont MD at 14:15 EDT ,
[2022-08-17 14:25] LABS: Phosphorus 3.8 mg/dL (2.5-4.9)
[2022-08-17] MEDS: Potassium Chloride 10mEq/100mL 10 MEQ/100 ML IV.SOLN. 100 MEQ IV BOLUS ×4 (15:23→20:18)
--- NOTE | 2022-08-17 20:51 | NURSING ---
Difficult to perform/assess NIHss d/t pt restless/agitation. Unable to score appropriately d/t pt noncompliance. Will let MD know
[2022-08-18] VITALS (13 sets, daily range): BP systolic 94–153; BP diastolic 55–75; PULSE 58–97; RESP 14–18; TEMP 36.4–37.1; O2SAT 92–100; BMI 16.2
--- NOTE | 2022-08-18 05:55 | CT_ITS ---
STUDY: CT BRAIN WITHOUT CONTRAST REASON FOR EXAM: Female, 76 years old. Severe headache RADIATION DOSAGE (If Supplied By Facility): CTDIvol = ( 47.06 ) mGy, DLP = ( 1745.36 ) mGycm TECHNIQUE: Transaxial CT imaging of the brain was performed without administration of intravenous contrast material. Individualized dose optimization techniques were used for this CT. COMPARISON: 2010 Study degraded by significant motion artifact FINDINGS: Normal soft tissue structures. Normal calvarium. There is mild cerebral atrophy with widening of the extra-axial spaces and ventricular dilatation. There are areas of decreased attenuation within the white matter tracts of the supratentorial brain, consistent with microvascular disease changes. Normal basal ganglia and thalami. Normal brainstem. There is mild cerebellar atrophy. There is no intracranial hemorrhage. There are no findings of an acute ischemic infarction. Normal visualized paranasal sinuses. CT/Brain/Head without Contrast IMPRESSION: Chronic involutional changes of the brain. No acute hemorrhage Electronically Signed: Leon Valdovinos MD at 7:47 EDT ,
--- NOTE | 2022-08-18 05:55 | CT_ITS ---
STUDY: CT PELVIS WITHOUT CONTRAST REASON FOR EXAM: Female, 76 years old. Possible hairline fracture of left lesser troch RADIATION DOSAGE (If Supplied By Facility): CTDIvol = ( 9.46 ) mGy, DLP = ( 260.91 ) mGycm TECHNIQUE: Transaxial imaging of the pelvis was performed with oral contrast, and without intravenous administration of contrast material. Multiplanar coronal and sagittal images were reformatted. Individualized dose optimization techniques were used for this CT. COMPARISON: None. FINDINGS: The bones are diffusely demineralized. Age consistent SI joint arthrosis is noted, age consistent bilateral hip arthrosis. No demonstrated acute fracture, no suspicious or asymmetric soft tissue swelling as an indirect sign of fracture. No subchondral changes are noted in the femoral heads or acetabula I to suspect AVN. Bladder contains a Flores catheter and some air. Normal visualized small intestine. Normal visualized colon. There is no pelvic fluid. There is no pelvic mass lesion or lymphadenopathy. There is diffuse atherosclerotic calcification of the pelvic arteries. Normal abdominal wall. No decubitus ulcer noted. CT/Pelvis without IV Contrast IMPRESSION: Diffuse osteopenia with age consistent bilateral hip and SI joint arthrosis, no demonstrated acute fracture or suspicious osseous lesion. No CT evidence to suspect AVN. No soft tissue swelling or other indirect evidence of fracture Bladder contains a Flores catheter and air likely from the placement of the catheter No free pelvic fluid or air Electronically Signed: Leon Valdovinos MD at 7:46 EDT ,
[2022-08-18 06:38] LABS: Basophil# 0.05 X10^3/uL; Basophil% 0.5 % (0-1); Hematocrit 41.9 % (37-47); Hemoglobin 14.3 g/dL (12.0-15.0); Lymphocyte % 8.6 % (19-41); Mean Corp Hgb Conc 34.1 g/dL (32-36); Mean Corpuscular Hgb 33.2 pg (27.0-32.0); Mean Corpuscular Volume 97.2 fL (81-99); Mean Platelet Vol. 10.1 fl (6.2-12.0); Monocyte# 1.34 X10^3/uL; Monocyte% 14.5 % (0-10); NRBC Flagged by Analyzer 0 % (0-5); Neutrophil # 7.02 X10^3/uL (2.7-7.7); Platelet Count 132 K/mm3 (150-450); RBC Distribution Width CV 11.4 % (11.6-14.6); RBC Distribution Width SD 41.5 fl (35.1-43.9); Red Blood Count 4.31 M/mm3 (4.2-5.4); White Blood Count 9.3 K/mm3 (4.4-11.0)
[2022-08-18 07:06] LABS: Anion Gap 10 (5-15); BUN 13 mg/dL (7-18); BUN/Creat Ratio 26.9 RATIO (10-20); Calcium,Total 8.6 mg/dL (8.5-10.1); Chloride 97 mmol/L (98-107); Creatinine, Serum 0.48 mg/dL (0.55-1.02); EST Glomerular Filtration Rate 132 mL/min (>60); Est Glom Filt Rate - Afr Amer 159 mL/min (>60); Estimated Creatinine Clearance 29.38 ml/min; Glucose 110 mg/dL (74-106); Potassium 3.5 mmol/L (3.5-5.1); Sodium Level 134 mmol/L (136-145)
--- NOTE | 2022-08-18 09:17 | TELEMED_ITS ---
[facility] has confirmed receipt of a request for visit. This document confirms receipt of the order initiating the consult. To find the results of the consultation, please view the patient's reports for the scanned Telemed Consult.
--- NOTE | 2022-08-18 10:13 | PCM.PN.HOSP ---
Subjective Subjective Not very interactive this morning. She will open her eyes to stimuli Objective Data Objective Data Vital Signs: Vital Signs Temp Pulse Resp BP Pulse Ox O2 Del Method O2 Flow Rate 97.6 F L 69 15 123/58 H 96 Room Air 2 08/18/22 05:21 08/18/22 05:21 08/18/22 05:21 08/18/22 05:21 08/18/22 07:20 08/18/22 09:06 08/16/22 14:44 Oxygen Flow Rate (L/min) 2 Oxygen Delivery Method Room Air Weight: 88 lb 8.003 oz Body Mass Index (BMI) 16.2 Intake & Output: Intake and Output for Last 24 Hours 08/17/22 08/18/22 08/19/22 03:59 03:59 03:59 Intake Total 1101.2 / 1101.2 1851 / 1851 Output Total 4400 / 4400 700 / 700 100 / 100 Balance -3298.8 / -3298.8 1151 / 1151 -100 / -100 Medical Nutrition Assessment Dietitian: Malnutrition Criteria Met Start: 08/17/22 11:29 Freq: Status: Active Protocol: Document 08/17/22 11:29 (Rec: 08/17/22 11:30 [id number]) Nutrition Malnutrition Evidence of Malnutrition Exists Yes Malnutrition (severe): Acute Illness/Injury Evidenced By Suboptimal Energy Intake ( Severe),Weight Loss (Severe), Physical Changes (Severe) Clinical Problem Acute Disease or Injury Related Malnutrition Etiology severe, acute on likely chronic malnutrition related to inadequate energy intake Signs/Symptoms as evidenced by unintentional wt loss of 2.5#/3% x 2 weeks; severe muscle wasting/fat loss evident in orbital, clavicle, acromion, and temporal areas per physical exam; estimated PO intake meeting <50% of estimated energy needs > 5 days; BMI 16.2 Status Active Problem Recommendation Dietitian Recommendations/Changes recommend regular diet as tolerated- texture/consistency modifications per MICROWAVE TECHNICIAN; ensure w/ medpass when PO diet advanced as tolerated (noted allergy to lactose, ensure is lactose free). Lab / Micro Data Result Diagrams: 08/18/22 06:31 08/18/22 06:31 Labs: Laboratory Results - last 24 hr 08/17/22 07:05: Phosphorus 3.8, Magnesium 2.0 08/18/22 06:31: WBC 9.3, RBC 4.31, Hgb 14.3, Hct 41.9, MCV 97.2, MCH 33.2 H, MCHC 34.1, RDW Std Deviation 41.5, RDW Coeff of Bruna 11.4 L, Plt Count 132 L, MPV 10.1, Immature Gran % (Auto) 0.400, Neut % (Auto) 76.0 H, Lymph % (Auto) 8.6 L, [place] % (Auto) 14.5 H, Eos % (Auto) 0.0, Baso % (Auto) 0.5, Absolute Neuts (auto) 7.0, Absolute Lymphs (auto) 0.80 L, Nucleated RBC % 0 08/18/22 06:31: Sodium 134 L, Potassium 3.5, Chloride 97 L, Carbon Dioxide 27.0, Anion Gap 10, BUN 13, Creatinine 0.48 L, Estim Creat Clear Calc 29.38, Est GFR (MDRD) Af Amer 159, Est GFR (MDRD) Non-Af 132, BUN/Creatinine Ratio 26.9 H, Glucose 110 H, Calcium 8.6 Micro: Microbiology 08/16/22 13:40 Urine Catheter - Flores Urine Culture - Final Culture exhibits no growth. 08/16/22 13:30 Nasal Secretion SARS-CoV-2 & FLU Antigen (Rapid) - Final Radiography Diagnostic Testing: Radiology Impression Echocardiogram 08/16/22 15:54 Interpretation Summary The study was technically difficult. Based upon the 2D echocardiographic images obtained there appears to be normal left ventricular size, wall motion, and systolic function. The estimated ejection fraction is 65 %. Moderate diffuse mitral valve thickening. The mitral valve chordae are thickened and/or calcified. Mild (1+) mitral valve insufficiency. Moderate diffuse thickening of the tricuspid valve. Mild to moderate (1-2+) tricuspid valve insufficiency. Mild diffuse aortic valve thickening. Right ventricular systolic pressure estimated to be 27 mmHg. Unable to assess diastolic dysfunction. Ordering Physician: Aidee Rico Referring Physician: Chata Barton Performed By: Sandra Pinto, RDCS, RVT Hip/Pelvis X-Ray 08/17/22 13:35 IMPRESSION: Degenerative findings of the hips. Question hairline fracture of the left lesser trochanter. This is non displaced. CT can better evaluate. Electronically Signed: Jose Antonio Dumont MD at 14:15 EDT , Brain CT 08/18/22 05:55 IMPRESSION: Chronic involutional changes of the brain. No acute hemorrhage Electronically Signed: Leon Valdovinos MD at 7:47 EDT , Pelvis CT 08/18/22 05:55 IMPRESSION: Diffuse osteopenia with age consistent bilateral hip and SI joint arthrosis, no demonstrated acute fracture or suspicious osseous lesion. No CT evidence to suspect AVN. No soft tissue swelling or other indirect evidence of fracture Bladder contains a Flores catheter and air likely from the placement of the catheter No free pelvic fluid or air Electronically Signed: Leon Valdovinos MD at 7:46 EDT , Physical Exam Narrative General: Alert, disoriented, agitated, No apparent distress HEENT: Atraumatic, PERRLA, EOMI, Normocephalic, cachectic Oral: Moist Mucosa Neck: Supple, No JVD Lungs: Diminished, Normal air movement, No rhonchi, No wheeze, No rales Cardiovascular: Regular rate, Regular Rhythm, Normal S1, Normal S2, No murmurs Abdomen: Soft, Non Tender, Non-Distended, No Hepato-splenomegaly Extremities: No edema, Capillary Refill Less than 3 Seconds Skin: No rashes, No breakdown Musculoskeletal: No Tenderness to Palpation of Joints or Extremities Neurological: Cranial nerves II-XII grossly intact, Motor Exam 5/5 strength throughout, Sensory exam intact to light touch and pain Psych/Mental Status: Flat affect/agitated Assessment & Plan Assessment/Plan (1) Acute confusion: (2) Encephalopathy acute: PLAN: Plan 1. Acute encephalopathy with expressive aphasia here for CVA rule out ? She did quit drinking about 2 weeks ago so potentially prolonged withdrawal, though unlikely ? CTA of the head and neck was unremarkable, she could not tolerate an MRI even with Ativan ? Repeat CT scan of the brain is negative for stroke ? CT of the pelvis does not show a fracture though it does show osteopenia ? Vitamin D level is pending ? Echo with EF of 65% and RVSP of 27 mmHg ? TSH is elevated, free T4 is normal but T3 is low unfortunate she is currently n.p.o. but when able we will start her on Synthroid ? We will continue with risperidone, some of the might be nutritional deficiency, phosphorus and magnesium are normal no leukocytosis to indicate infection, UA and chest x-ray are unremarkable. LFTs are normal and ammonia level is normal. We will obtain an EEG today 2. History of alcohol abuse/likely malnutrition ? She is very thin, alcohol level was negative ? Continue with thiamine DVT: Heparin Charges/Coding Visit Charges Inpatient E&M: 96368 Subs Hosp L2
[2022-08-18] MEDS: RisperiDONE 0.25 MG Tablet PO (10:15)
[2022-08-18] MEDS: Aspirin 81 MG TAB.CHEW PO (10:15)
[2022-08-18] MEDS: Senna/Docusate Sodium 1 Tablet PO (10:15)
[2022-08-18] MEDS: Heparin Injection (Vial) 5,000 UNIT/ML VIAL 5000 UNIT SC ×2 (10:20→22:05)
[2022-08-18 11:00] LABS: Bedside Glucose 102 mg/dL (74-106)
[2022-08-18] MEDS: levETIRAcetam IV 1,000 MG/100 ML BAG 400 MG IV (16:24)
[2022-08-18] MEDS: LORazepam 2 MG/ML Syringe IV (18:50)
--- NOTE | 2022-08-18 19:43 | MRI_ITS ---
We are attempting to reach an attending provider to discuss findings. An addendum with communication details will be sent when the communication is complete. STUDY: MRI BRAIN WITH AND WITHOUT CONTRAST REASON FOR EXAM: Female, 76 years old. encephalopathy TECHNIQUE: Standardized multiplanar fat and water weighted pulse sequences were obtained. IV 8mL CLARISCAN was administered for the contrast portion of the examination. COMPARISON: CT of the brain 06/20/2022 FINDINGS: Mild atrophy and moderate periventricular white matter ischemic changes.. Tiny focus of restricted diffusion in the left posterior temporal lobe consistent with acute ischemic changes Normal bilateral basal ganglia. Normal thalami. There is no extra-axial fluid accumulation. Normal flow voids within the major intracranial circulation suggesting patency by spin echo criteria. Normal venous enhancement. There is no enhancing intra-axial or extra-axial abnormality. Normal sella turcica, pituitary gland, infundibular stalk, optic chiasm and hypothalamus. Normal tectal plate and pineal gland. Normal midbrain, marli and medulla. Normal cerebellum. Normal basal cisterns. Normal bilateral temporal bones. Normal bilateral internal auditory canals. Postsurgical changes of the orbits.. Normal visualized paranasal sinuses. Normal calvarium and skull base. Normal visualized soft tissue structures. Normal visualized upper cervical spine. MRI/Brain W/WO Contrast IMPRESSION: Mild atrophy and moderate periventricular white matter ischemic change.. Tiny acute ischemic infarction in the left posterior temporal lobe Electronically Signed: Toni Velarde MD at 21:34 EDT ,
--- NOTE | 2022-08-18 21:58 | NURSING ---
This nurse received critical result from doctor on patient MRI findings small acute infarct left temporal, no bleed. Backline Dr. Mac with this result at this time.
[2022-08-18] MEDS: 0.9% Saline Lock 10 ML Syringe IV (22:00)
[2022-08-19] VITALS (12 sets, daily range): BP systolic 91–123; BP diastolic 51–64; PULSE 66–80; RESP 15–18; TEMP 36.4–36.8; O2SAT 94–100; BMI 16.2
[2022-08-19] MEDS: 0.9% Normal Saline 1,000 ML 100 ML IV ×2 (05:24→14:48)
[2022-08-19] MEDS: Aspirin 81 MG TAB.CHEW PO (09:19)
[2022-08-19] MEDS: RisperiDONE 0.25 MG Tablet PO ×2 (09:19→22:31)
[2022-08-19] MEDS: Senna/Docusate Sodium 1 Tablet PO (09:19)
[2022-08-19] MEDS: Heparin Injection (Vial) 5,000 UNIT/ML VIAL 5000 UNIT SC ×2 (09:19→22:30)
--- NOTE | 2022-08-19 10:34 | PCM.PN.HOSP ---
Subjective Subjective More alert today and interactive. She knew where she was but she took a long time to get there and she could not tell me the year Objective Data Objective Data Vital Signs: Vital Signs Temp Pulse Resp BP Pulse Ox O2 Del Method O2 Flow Rate 97.6 F L 77 16 98/60 98 Room Air 2 08/19/22 09:15 08/19/22 09:15 08/19/22 09:15 08/19/22 09:15 08/19/22 09:15 08/19/22 09:15 08/16/22 14:44 Oxygen Flow Rate (L/min) 2 Oxygen Delivery Method Room Air Weight: 88 lb 8.003 oz Body Mass Index (BMI) 16.2 Intake & Output: Intake and Output for Last 24 Hours 08/18/22 08/19/22 08/20/22 03:59 03:59 03:59 Intake Total 1851 / 1851 696 / 696 Output Total 700 / 700 800 / 800 100 / 100 Balance 1151 / 1151 -104 / -104 -100 / -100 Medical Nutrition Assessment Dietitian: Malnutrition Criteria Met Start: 08/17/22 11:29 Freq: Status: Active Protocol: Document 08/17/22 11:29 AG (Rec: 08/17/22 11:30 AG [id number]) Nutrition Malnutrition Evidence of Malnutrition Exists Yes Malnutrition (severe): Acute Illness/Injury Evidenced By Suboptimal Energy Intake ( Severe),Weight Loss (Severe), Physical Changes (Severe) Clinical Problem Acute Disease or Injury Related Malnutrition Etiology severe, acute on likely chronic malnutrition related to inadequate energy intake Signs/Symptoms as evidenced by unintentional wt loss of 2.5#/3% x 2 weeks; severe muscle wasting/fat loss evident in orbital, clavicle, acromion, and temporal areas per physical exam; estimated PO intake meeting <50% of estimated energy needs > 5 days; BMI 16.2 Status Active Problem Recommendation Dietitian Recommendations/Changes recommend regular diet as tolerated- texture/consistency modifications per GAME DEVELOPER; ensure w/ medpass when PO diet advanced as tolerated (noted allergy to lactose, ensure is lactose free). Lab / Micro Data Result Diagrams: 08/18/22 06:31 08/18/22 06:31 Labs: Laboratory Results - last 24 hr 08/16/22 12:45: POC Glucose 102 Micro: Microbiology 08/16/22 14:00 Blood Culture (Wb) - Anticubital Left Blood Culture - Preliminary No growth in 48 hours. 08/16/22 13:30 Blood Culture (Wb) - Anticubital Left Blood Culture - Preliminary No growth in 48 hours. 08/16/22 13:40 Urine Catheter - Flores Urine Culture - Final Culture exhibits no growth. 08/16/22 13:30 Nasal Secretion SARS-CoV-2 & FLU Antigen (Rapid) - Final Radiography Diagnostic Testing: Radiology Impression Brain MRI 08/18/22 19:43 IMPRESSION: Mild atrophy and moderate periventricular white matter ischemic change.. Tiny acute ischemic infarction in the left posterior temporal lobe Electronically Signed: Toni Velarde MD at 21:34 EDT , ADDENDUM: 08/18/222203 IMPRESSION: Mild atrophy and moderate periventricular white matter ischemic change.. Tiny acute ischemic infarction in the left posterior temporal lobe N.B. : The above Results were Read Back by Toni Velarde MD to Zoila Alexander RN, and understanding confirmed on 08/18/2022 21:57:29 (ET). Electronically Signed: Toni Velarde MD at 21:34 EDT , Physical Exam Narrative General: Alert, disoriented, No apparent distress HEENT: Atraumatic, PERRLA, EOMI, Normocephalic, cachectic Oral: Moist Mucosa Neck: Supple, No JVD Lungs: Diminished, Normal air movement, No rhonchi, No wheeze, No rales Cardiovascular: Regular rate, Regular Rhythm, Normal S1, Normal S2, No murmurs Abdomen: Soft, Non Tender, Non-Distended, No Hepato-splenomegaly Extremities: No edema, Capillary Refill Less than 3 Seconds Skin: No rashes, No breakdown Musculoskeletal: No Tenderness to Palpation of Joints or Extremities Neurological: Moves all extremities, sensory exam intact Psych/Mental Status: Normal affect Assessment & Plan Assessment/Plan (1) Acute confusion: (2) Encephalopathy acute: PLAN: Plan 1. 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 She did quit drinking about 2 weeks ago so potentially prolonged withdrawal, though unlikely ? CTA of the head and neck was unremarkable ? Repeat CT scan of the brain is negative for stroke, MRI was able to be done yesterday after Ativan, demonstrates a left temporal lobe stroke ? CT of the pelvis does not show a fracture though it does show osteopenia ? Vitamin D level is pending ? Echo with EF of 65% and RVSP of 27 mmHg ? TSH is elevated, free T4 is normal but T3 is low unfortunate she is currently n.p.o. but when able we will start her on Synthroid ? We will continue with risperidone, some of the might be nutritional deficiency, phosphorus and magnesium are normal no leukocytosis to indicate infection, UA and chest x-ray are unremarkable. LFTs are normal and ammonia level is normal. ? EEG demonstrated a focal dampening in her right temporal lobe indicative of a structural issue however nothing was present on MRI. We will continue with Keppra as well as thiamine 2. History of alcohol abuse/likely malnutrition ? She is very thin, alcohol level was negative ? Continue with thiamine Had a 20-minute advance care planning discussion with the family today about goals of care in terms of feeding and also plan for discharge DVT: Heparin Charges/Coding Visit Charges Inpatient E&M: 98097 Subs Hosp L2 Procedures Hospitalists Procedures: 74043 Advncd Care Plan 30 Min
--- NOTE | 2022-08-19 13:44 | CASEMGMT ---
Patient did have a Stroke, however patient is not currently alert and oriented enough to complete PHQ9. SW will wait to see if patient's mentation improves. Danisha Jones MSW BI
[2022-08-19 15:31] LABS: Vitamin D 1,25-Dihydroxy 90.7 pg/mL (24.8-81.5)
[2022-08-19] MEDS: Juven (unflavored) Packet 1 PACKET PO (16:52)
[2022-08-19] MEDS: MELATONIN 10 MG TABLET PO (22:31)
[2022-08-19] MEDS: Atorvastatin Calcium 40 MG Tablet PO (22:31)
[2022-08-20] VITALS (7 sets, daily range): BP systolic 109–139; BP diastolic 55–73; PULSE 76–91; RESP 16–18; TEMP 36.4–36.6; O2SAT 98–100; BMI 16.2; BMI 17.1
[2022-08-20] MEDS: 0.9% Normal Saline 1,000 ML 100 ML IV ×2 (00:48→10:45)
[2022-08-20] MEDS: Levothyroxine 50 MCG Tablet PO (06:01)
[2022-08-20 06:47] LABS: Absolute Lymphocyte Count 0.62 X10^3/uL (0.83-4.51); Basophil# 0.01 X10^3/uL; Basophil% 0.1 % (0-1); Eosinophil# 0.02 X10^3/uL; Eosinophils% 0.3 % (0-5); Hematocrit 37.7 % (37-47); Hemoglobin 12.7 g/dL (12.0-15.0); Lymphocyte # 0.62 X10^3/ul (0.83-4.51); Lymphocyte % 8.4 % (19-41); Mean Corp Hgb Conc 33.7 g/dL (32-36); Mean Corpuscular Volume 97.9 fL (81-99); Mean Platelet Vol. 10.7 fl (6.2-12.0); Monocyte# 0.72 X10^3/uL; Monocyte% 9.7 % (0-10); NRBC Flagged by Analyzer 0 % (0-5); Neutrophil # 6.02 X10^3/uL (2.7-7.7); Neutrophil % 81.1 % (47-70); Platelet Count 113 K/mm3 (150-450); RBC Distribution Width CV 11.6 % (11.6-14.6); RBC Distribution Width SD 41.8 fl (35.1-43.9); Red Blood Count 3.85 M/mm3 (4.2-5.4); White Blood Count 7.4 K/mm3 (4.4-11.0)
[2022-08-20 07:15] LABS: Anion Gap 8 (5-15); BUN 23 mg/dL (7-18); BUN/Creat Ratio 65.2 RATIO (10-20); Chloride 100 mmol/L (98-107); Creatinine, Serum 0.35 mg/dL (0.55-1.02); EST Glomerular Filtration Rate 189 mL/min (>60); Est Glom Filt Rate - Afr Amer 229 mL/min (>60); Estimated Creatinine Clearance 31.11 ml/min; Glucose 100 mg/dL (74-106); Potassium 3.6 mmol/L (3.5-5.1); Sodium Level 137 mmol/L (136-145)
[2022-08-20] MEDS: RisperiDONE 0.25 MG Tablet PO ×2 (09:11→22:20)
[2022-08-20] MEDS: Heparin Injection (Vial) 5,000 UNIT/ML VIAL 5000 UNIT SC ×2 (09:11→22:20)
[2022-08-20] MEDS: Juven (unflavored) Packet 1 PACKET PO ×2 (09:11→17:56)
[2022-08-20] MEDS: Aspirin 81 MG TAB.CHEW PO (09:11)
--- NOTE | 2022-08-20 10:04 | PCM.PN.HOSP ---
Subjective Subjective Much more alert and interactive even today, she is sitting up and feeding herself Objective Data Objective Data Vital Signs: Vital Signs Temp Pulse Resp BP Pulse Ox O2 Del Method O2 Flow Rate 97.5 F L 91 16 109/57 L 100 Room Air 2 08/20/22 08:59 08/20/22 08:59 08/20/22 08:59 08/20/22 08:59 08/20/22 08:59 08/20/22 08:59 08/16/22 14:44 Oxygen Flow Rate (L/min) 2 Oxygen Delivery Method Room Air Weight: 93 lb 11.143 oz Body Mass Index (BMI) 17.1 Intake & Output: Intake and Output for Last 24 Hours 08/19/22 08/20/22 08/21/22 03:59 03:59 03:59 Intake Total 696 / 696 2644.34 / 2644.34 905 / 905 Output Total 800 / 800 770 / 770 700 / 700 Balance -104 / -104 1874.34 / 1874.34 205 / 205 Medical Nutrition Assessment Dietitian: Malnutrition Criteria Met Start: 08/17/22 11:29 Freq: Status: Active Protocol: Document 08/19/22 11:30 AG (Rec: 08/19/22 11:30 [id number]) Nutrition Malnutrition Evidence of Malnutrition Exists Yes Malnutrition (severe): Acute Illness/Injury Evidenced By Suboptimal Energy Intake ( Severe),Weight Loss (Severe), Physical Changes (Severe) Clinical Problem Acute Disease or Injury Related Malnutrition Etiology severe, acute on likely chronic malnutrition related to inadequate energy intake Signs/Symptoms as evidenced by unintentional wt loss of 2.5#/3% x 2 weeks; severe muscle wasting/fat loss evident in orbital, clavicle, acromion, and temporal areas per physical exam; estimated PO intake meeting <50% of estimated energy needs > 5 days; BMI 16.2 Status Active Problem Recommendation Dietitian Recommendations/Changes continue regular diet as tolerated- texture/consistency modifications per REMOTE SENSING ADVISOR; Nikolas BID w/ medpass and Nikolas w/ meals when able; will add vegan protein powder if/when available Lab / Micro Data Result Diagrams: 08/20/22 06:27 08/20/22 06:27 Labs: Laboratory Results - last 24 hr 08/16/22 21:13: Vit D 1,25-Dihydroxy 90.7 H 08/20/22 06:27: WBC 7.4, RBC 3.85 L, Hgb 12.7, Hct 37.7, MCV 97.9, MCH 33.0 H, MCHC 33.7, RDW Std Deviation 41.8, RDW Coeff of Bruna 11.6, Plt Count 113 L, MPV 10.7, Immature Gran % (Auto) 0.400, Neut % (Auto) 81.1 H, Lymph % (Auto) 8.4 L, [place] % (Auto) 9.7, Eos % (Auto) 0.3, Baso % (Auto) 0.1, Absolute Neuts (auto) 6.0, Absolute Lymphs (auto) 0.62 L, Nucleated RBC % 0 08/20/22 06:27: Sodium 137, Potassium 3.6, Chloride 100, Carbon Dioxide 29.0, Anion Gap 8, BUN 23 H, Creatinine 0.35 L, Estim Creat Clear Calc 31.11, Est GFR (MDRD) Af Amer 229, Est GFR (MDRD) Non-Af 189, BUN/Creatinine Ratio 65.2 H, Glucose 100, Calcium 8.0 L Micro: Microbiology 08/16/22 14:00 Blood Culture (Wb) - Anticubital Left Blood Culture - Preliminary No growth in 48 hours. 08/16/22 13:30 Blood Culture (Wb) - Anticubital Left Blood Culture - Preliminary No growth in 48 hours. 08/16/22 13:40 Urine Catheter - Flores Urine Culture - Final Culture exhibits no growth. 08/16/22 13:30 Nasal Secretion SARS-CoV-2 & FLU Antigen (Rapid) - Final Physical Exam Narrative General: Alert, oriented, No apparent distress HEENT: Atraumatic, PERRLA, EOMI, Normocephalic, cachectic Oral: Moist Mucosa Neck: Supple, No JVD Lungs: Diminished, Normal air movement, No rhonchi, No wheeze, No rales Cardiovascular: Regular rate, Regular Rhythm, Normal S1, Normal S2, No murmurs Abdomen: Soft, Non Tender, Non-Distended, No Hepato-splenomegaly Extremities: No edema, Capillary Refill Less than 3 Seconds Skin: No rashes, No breakdown Musculoskeletal: No Tenderness to Palpation of Joints or Extremities Neurological: Moves all extremities, sensory exam intact Psych/Mental Status: Normal affect Assessment & Plan Assessment/Plan (1) Acute confusion: (2) Encephalopathy acute: PLAN: Plan 1. 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 She did quit drinking about 2 weeks ago so potentially prolonged withdrawal, though unlikely ? CTA of the head and neck was unremarkable ? Repeat CT scan of the brain is negative for stroke, MRI was able to be done after Ativan, demonstrates a left temporal lobe stroke ? CT of the pelvis does not show a fracture though it does show osteopenia ? Vitamin D level is elevated ? Echo with EF of 65% and RVSP of 27 mmHg ? TSH is elevated, free T4 is normal but T3 is low, will start her on Synthroid ? We will continue with risperidone, some of this might be nutritional deficiency, phosphorus and magnesium are normal no leukocytosis to indicate infection, UA and chest x-ray are unremarkable. LFTs are normal and ammonia level is normal. ? EEG demonstrated a focal dampening in her right temporal lobe indicative of a structural issue however nothing was present on MRI. We will continue with Keppra as well as thiamine 2. History of alcohol abuse/severe protein calorie malnutrition ? She is very thin, alcohol level was negative ? Continue with thiamine DVT: Heparin Charges/Coding Visit Charges Inpatient E&M: 63345 Subs Hosp L2
--- NOTE | 2022-08-20 10:17 | CASEMGMT ---
Tertiary facilities in-network with patient's insurance: [facility], [facility], [facility], [facility], , [facility], [facility], [facility].
[2022-08-20] MEDS: Acetaminophen 325 MG Tablet 650 MG PO (14:03)
--- NOTE | 2022-08-20 17:30 | CASEMGMT ---
Social Work PCU Reason for intervention: PHQ-9 for stroke diagnosis and discharge planning Spoke with RN RASHAD Clarke who reports patient is a min assist of 2 with this time, and prior to admission was independent at home. Question whether patient may need some type of rehab at discharge. Met with patient and patient's . Daughter briefly present. Introduced to self and social work role. Patient pleasant smiling and welcoming conversation. also engaged and pleasant. Reviewed patient's status prior to admission and current status. Discussed all options including inpatient rehab, SNF level of care and home with home health. Patient indicated that would like to return home though open for discussion about potential barriers and concerns about returning home. expressed in a supportive way concern that patient may need more help than the is able to provide, at least immediately. Concern specifically if in the middle of the night patient needing to get up quickly and the is not able to move as fast as the patient needs. offered to purchase a bedside commode for the patient. While appeared to support the idea of patient going somewhere for rehab, the also presented this option in a way to allow patient to make her own decisions and have some control in the situation. Both patient and were very clear that going to a group home in the community was out of the question. Reviewed hospital-based rehab and transitional care/SNF within the hospital setting. expressed desire to keep the patient local to the hospital. Educated the only local option for inpatient rehab is at [facility], and [place] the county. Offered to get a list of inpatient rehab options. The patient and declined. Also offered to provide a list of retirement facilities in the patient's geographical region, and this was also declined at present time. Patient and patient's expressed interest in [facility] rehab, or the transitional care. Inpatient rehab as the first choice. Educated that referrals can be made but have to check on bed availability and also insurance authorization. did mention willingness to pay privately should insurance denied coverage. Referral to lean manufacturing coordinator Funmilayo Garcia on the rehab and TCU units. PHQ-9 completed with a score of 1 showing none to minimal depression. 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 Plan: Inpatient rehab if bed available and insurance approval. Social work to continue to follow and assist with discharge planning as indicated. -JULES Andujar, HUMAN RESOURCES BENEFITS COORDINATOR *This note was generated with ReferralMDation software. It may contain incorrect words, spelling, and punctuation that were not noted in review of the chart prior to signing*
[2022-08-20] MEDS: MELATONIN 10 MG TABLET PO (22:20)
[2022-08-20] MEDS: Atorvastatin Calcium 40 MG Tablet PO (22:20)
[2022-08-20] MEDS: 0.9% Saline Lock 10 ML Syringe IV (22:27)
[2022-08-21] VITALS (9 sets, daily range): BP systolic 112–128; BP diastolic 58–72; PULSE 66–96; RESP 14–18; TEMP 36.3–36.9; O2SAT 98–100; BMI 16.4
[2022-08-21] MEDS: Levothyroxine 50 MCG Tablet PO (06:17)
[2022-08-21 08:43] LABS: Absolute Lymphocyte Count 0.89 X10^3/uL (0.83-4.51); Absolute Neutrophil Count 4.2 X10^3/uL (2.0-7.7); Basophil# 0.02 X10^3/uL; Basophil% 0.3 % (0-1); Eosinophil# 0.09 X10^3/uL; Eosinophils% 1.6 % (0-5); Hematocrit 36.4 % (37-47); Hemoglobin 12.2 g/dL (12.0-15.0); Lymphocyte # 0.89 X10^3/ul (0.83-4.51); Lymphocyte % 15.5 % (19-41); Mean Corp Hgb Conc 33.5 g/dL (32-36); Mean Corpuscular Hgb 32.9 pg (27.0-32.0); Mean Corpuscular Volume 98.1 fL (81-99); Mean Platelet Vol. 11.2 fl (6.2-12.0); Monocyte# 0.56 X10^3/uL; Monocyte% 9.8 % (0-10); NRBC Flagged by Analyzer 0 % (0-5); Neutrophil # 4.15 X10^3/uL (2.7-7.7); Neutrophil % 72.5 % (47-70); Platelet Count 130 K/mm3 (150-450); RBC Distribution Width CV 11.8 % (11.6-14.6); RBC Distribution Width SD 42.2 fl (35.1-43.9); Red Blood Count 3.71 M/mm3 (4.2-5.4); White Blood Count 5.7 K/mm3 (4.4-11.0)
[2022-08-21 08:58] LABS: Anion Gap 7 (5-15); BUN 16 mg/dL (7-18); BUN/Creat Ratio 45.5 RATIO (10-20); Calcium,Total 8.4 mg/dL (8.5-10.1); Chloride 101 mmol/L (98-107); Creatinine, Serum 0.35 mg/dL (0.55-1.02); EST Glomerular Filtration Rate 190 mL/min (>60); Est Glom Filt Rate - Afr Amer 230 mL/min (>60); Estimated Creatinine Clearance 29.86 ml/min; Glucose 91 mg/dL (74-106); Potassium 3.8 mmol/L (3.5-5.1); Sodium Level 140 mmol/L (136-145)
[2022-08-21] MEDS: Heparin Injection (Vial) 5,000 UNIT/ML VIAL 5000 UNIT SC ×2 (09:41→21:36)
[2022-08-21] MEDS: Aspirin 81 MG TAB.CHEW PO (09:42)
[2022-08-21] MEDS: Juven (unflavored) Packet 1 PACKET PO ×2 (09:42→18:24)
[2022-08-21] MEDS: RisperiDONE 0.25 MG Tablet PO ×2 (09:42→21:36)
[2022-08-21] MEDS: 0.9% Saline Lock 10 ML Syringe IV (09:43)
--- NOTE | 2022-08-21 13:48 | PN_ITS ---
Subjective Subjective Patient seen and examined. Her , son and his partner was by her bedside. She had no active complaints and says she felt better. She is awaiting placement. Review of systems otherwise negative. Objective Data Objective Data Vital Signs: Vital Signs Temp Pulse Resp BP Pulse Ox O2 Del Method O2 Flow Rate 97.9 F 77 16 112/58 L 99 Room Air 2 08/21/22 10:00 08/21/22 10:00 08/21/22 10:00 08/21/22 10:00 08/21/22 10:00 08/21/22 10:00 08/16/22 14:44 Oxygen Flow Rate (L/min) 2 Oxygen Delivery Method Room Air Weight: 89 lb 15.178 oz Body Mass Index (BMI) 16.4 Intake & Output: Intake and Output for Last 24 Hours 08/19/22 08/20/22 08/21/22 23:59 23:59 23:59 Intake Total 1644.34 / 1644.34 3612.66 / 3612.66 836 / 836 Output Total 520 / 770 1700 / 1700 Balance 1124.34 / 874.34 1912.66 / 1912.66 836 / 836 Medical Nutrition Assessment Dietitian: Malnutrition Criteria Met Start: 08/17/22 11:29 Freq: Status: Active Protocol: Document 08/19/22 11:30 (Rec: 08/19/22 11:30 AG [id number]) Nutrition Malnutrition Evidence of Malnutrition Exists Yes Malnutrition (severe): Acute Illness/Injury Evidenced By Suboptimal Energy Intake ( Severe),Weight Loss (Severe), Physical Changes (Severe) Clinical Problem Acute Disease or Injury Related Malnutrition Etiology severe, acute on likely chronic malnutrition related to inadequate energy intake Signs/Symptoms as evidenced by unintentional wt loss of 2.5#/3% x 2 weeks; severe muscle wasting/fat loss evident in orbital, clavicle, acromion, and temporal areas per physical exam; estimated PO intake meeting <50% of estimated energy needs > 5 days; BMI 16.2 Status Active Problem Recommendation Dietitian Recommendations/Changes continue regular diet as tolerated- texture/consistency modifications per PATIENT SUPPORT ASSOCIATE; Nikolas BID w/ medpass and Nikolas w/ meals when able; will add vegan protein powder if/when available Lab / Micro Data Result Diagrams: 08/21/22 06:43 08/21/22 06:43 Labs: Laboratory Results - last 24 hr 08/21/22 06:43: WBC 5.7, RBC 3.71 L, Hgb 12.2, Hct 36.4 L, MCV 98.1, MCH 32.9 H, MCHC 33.5, RDW Std Deviation 42.2, RDW Coeff of Bruna 11.8, Plt Count 130 L, MPV 11.2, Immature Gran % (Auto) 0.300, Neut % (Auto) 72.5 H, Lymph % (Auto) 15.5 L, [place] % (Auto) 9.8, Eos % (Auto) 1.6, Baso % (Auto) 0.3, Absolute Neuts (auto) 4.2, Absolute Lymphs (auto) 0.89, Nucleated RBC % 0 08/21/22 06:43: Sodium 140, Potassium 3.8, Chloride 101, Carbon Dioxide 32.0, Anion Gap 7, BUN 16, Creatinine 0.35 L, Estim Creat Clear Calc 29.86, Est GFR (MDRD) Af Amer 230, Est GFR (MDRD) Non-Af 190, BUN/Creatinine Ratio 45.5 H, Glucose 91, Calcium 8.4 L Micro: Microbiology 08/16/22 13:30 Blood Culture (Wb) - Anticubital Left Blood Culture - Final No growth in 5 days. 08/16/22 14:00 Blood Culture (Wb) - Anticubital Left Blood Culture - Preliminary No growth in 48 hours. 08/16/22 13:40 Urine Catheter - Flores Urine Culture - Final Culture exhibits no growth. 08/16/22 13:30 Nasal Secretion SARS-CoV-2 & FLU Antigen (Rapid) - Final Physical Exam Const alert, oriented x3 and no apparent distress General Appearance: cooperative HEENT head/scalp atraumatic, moist oral mucous membranes, oropharynx normal and gingiva normal Eyes PERRL and EOMs intact bilaterally Neck no lymphadenopathy and supple Lymph Lymphatic: no lymphadenopathy noted and no lymphedema noted Resp normal respiratory effort, normal air movement and clear to auscultation bilaterally Cardio regular rate, regular rhythm, S1 normal heart sound, S2 normal heart sound and no murmurs GI normal to inspection, nondistended, normoactive bowel sounds, soft to palpation, non-tender and non-distended Extremity normal capillary refill, no clubbing, cyanosis or edema and no calf tenderness General Extremity: clubbing, cyanosis and no tenderness to palpation of joints or extremities Skin General Skin Exam: no breakdown Neuro CN's II-XII intact bilaterally, no focal motor deficits, no sensory deficits noted and deep tendon reflexes 2+ bilaterally Psych thought process normal Assessment & Plan Assessment/Plan (1) Acute confusion: (2) Encephalopathy acute: PLAN: Plan #Acute encephalopathy * improving. She was diagnosed with a small left temporal CVA * I however think her episodes of confusion is likely due to her chronic alcohol abuse. * CT of the head and neck showed no evidence of hemodynamically significant stenosis. * 2D echo showed EF of 65%. * EEG showed focal dampening in her right temporal lobe but no evidence of seizure. * On Keppra and thiamine * [facility] reviewed patient and per their documentation is possible she had a seizure and had prolonged postictal confusion always having subclinical seizures. * Patient is alert and oriented and able to communicate now. She does have a chronic history of alcohol use disorder though patient 1 but tells me that she knows she drinks a lot in the next room and she tells me that she does not have a problem with alcohol. Asthma did mention during reviewed that she sneaks in a drink as soon as she wakes up in the morning. * On aspirin and statin #Acute left temporal CVA: As above * * #History of alcohol use disorder: On thiamine. #Subclinical hypothyroidism: TSH was elevated but free T4 was normal and T3 was low. Currently on Synthroid 50 mcg daily DVT prophylaxis: Heparin Disposition: Awaiting placement # Charges/Coding Visit Charges Inpatient E&M: 78220 Subs Hosp L2
--- NOTE | 2022-08-21 18:27 | NURSING ---
All charting and medication administration completed by Shantell Gomez, student nurse completed under supervision of this RN.
[2022-08-21] MEDS: Atorvastatin Calcium 40 MG Tablet PO (21:35)
[2022-08-21] MEDS: MELATONIN 10 MG TABLET PO (21:36)
[2022-08-22] VITALS (7 sets, daily range): BP systolic 111–144; BP diastolic 56–70; PULSE 66–89; RESP 14–18; TEMP 36.4–36.9; O2SAT 98–100; BMI 16.1
[2022-08-22] MEDS: Levothyroxine 50 MCG Tablet PO (03:34)
[2022-08-22 06:23] LABS: Absolute Lymphocyte Count 1.04 X10^3/uL (0.83-4.51); Absolute Neutrophil Count 4.5 X10^3/uL (2.0-7.7); Basophil# 0.03 X10^3/uL; Basophil% 0.5 % (0-1); Eosinophil# 0.27 X10^3/uL; Eosinophils% 4.2 % (0-5); Hematocrit 34.7 % (37-47); Hemoglobin 11.4 g/dL (12.0-15.0); Lymphocyte # 1.04 X10^3/ul (0.83-4.51); Lymphocyte % 16.2 % (19-41); Mean Corp Hgb Conc 32.9 g/dL (32-36); Mean Corpuscular Hgb 32.7 pg (27.0-32.0); Mean Corpuscular Volume 99.4 fL (81-99); Mean Platelet Vol. 11.3 fl (6.2-12.0); Monocyte# 0.55 X10^3/uL; Monocyte% 8.6 % (0-10); NRBC Flagged by Analyzer 0 % (0-5); Neutrophil # 4.52 X10^3/uL (2.7-7.7); Neutrophil % 70.2 % (47-70); Platelet Count 135 K/mm3 (150-450); RBC Distribution Width CV 11.7 % (11.6-14.6); RBC Distribution Width SD 42.9 fl (35.1-43.9); Red Blood Count 3.49 M/mm3 (4.2-5.4); White Blood Count 6.4 K/mm3 (4.4-11.0)
[2022-08-22 06:57] LABS: Anion Gap 5 (5-15); BUN 27 mg/dL (7-18); BUN/Creat Ratio 69.2 RATIO (10-20); Calcium,Total 8.2 mg/dL (8.5-10.1); Chloride 102 mmol/L (98-107); Creatinine, Serum 0.39 mg/dL (0.55-1.02); EST Glomerular Filtration Rate 169 mL/min (>60); Est Glom Filt Rate - Afr Amer 204 mL/min (>60); Estimated Creatinine Clearance 29.35 ml/min; Glucose 93 mg/dL (74-106); Potassium 3.8 mmol/L (3.5-5.1); Sodium Level 140 mmol/L (136-145)
[2022-08-22] MEDS: Juven (unflavored) Packet 1 PACKET PO ×2 (09:17→16:02)
[2022-08-22] MEDS: Aspirin 81 MG TAB.CHEW PO (09:17)
[2022-08-22] MEDS: RisperiDONE 0.25 MG Tablet PO ×2 (09:17→21:32)
[2022-08-22] MEDS: Heparin Injection (Vial) 5,000 UNIT/ML VIAL 5000 UNIT SC ×2 (09:18→21:33)
[2022-08-22] MEDS: 0.9% Saline Lock 10 ML Syringe IV (09:26)
--- NOTE | 2022-08-22 10:39 | PN_ITS ---
Subjective Subjective Patient seen and examined. She has no complaints this morning. She had an uneventful night. Review systems otherwise negative. She is awaiting placement. Objective Data Objective Data Vital Signs: Vital Signs Temp Pulse Resp BP Pulse Ox O2 Del Method O2 Flow Rate 97.9 F 83 14 119/58 L 100 Room Air 2 08/22/22 09:11 08/22/22 09:11 08/22/22 09:11 08/22/22 09:11 08/22/22 09:11 08/22/22 09:37 08/16/22 14:44 Oxygen Flow Rate (L/min) 2 Oxygen Delivery Method Room Air Weight: 88 lb 6.486 oz Body Mass Index (BMI) 16.1 Intake & Output: Intake and Output for Last 24 Hours 08/20/22 08/21/22 08/22/22 23:59 23:59 23:59 Intake Total 3612.66 / 3612.66 1781.00 / 1781.00 276 / 276 Output Total 1700 / 1700 Balance 1912.66 / 1912.66 1781.00 / 1781.00 276 / 276 Medical Nutrition Assessment Dietitian: Malnutrition Criteria Met Start: 08/17/22 11:29 Freq: Status: Active Protocol: Document 08/19/22 11:30 (Rec: 08/19/22 11:30 AG [id number]) Nutrition Malnutrition Evidence of Malnutrition Exists Yes Malnutrition (severe): Acute Illness/Injury Evidenced By Suboptimal Energy Intake ( Severe),Weight Loss (Severe), Physical Changes (Severe) Clinical Problem Acute Disease or Injury Related Malnutrition Etiology severe, acute on likely chronic malnutrition related to inadequate energy intake Signs/Symptoms as evidenced by unintentional wt loss of 2.5#/3% x 2 weeks; severe muscle wasting/fat loss evident in orbital, clavicle, acromion, and temporal areas per physical exam; estimated PO intake meeting <50% of estimated energy needs > 5 days; BMI 16.2 Status Active Problem Recommendation Dietitian Recommendations/Changes continue regular diet as tolerated- texture/consistency modifications per KNOTTER HAND; Nikolas BID w/ medpass and Nikolas w/ meals when able; will add vegan protein powder if/when available Lab / Micro Data Result Diagrams: 08/22/22 04:45 08/22/22 04:45 Labs: Laboratory Results - last 24 hr 08/22/22 04:45: WBC 6.4, RBC 3.49 L, Hgb 11.4 L, Hct 34.7 L, MCV 99.4 H, MCH 32.7 H, MCHC 32.9, RDW Std Deviation 42.9, RDW Coeff of Bruna 11.7, Plt Count 135 L, MPV 11.3, Immature Gran % (Auto) 0.300, Neut % (Auto) 70.2 H, Lymph % (Auto) 16.2 L, [place] % (Auto) 8.6, Eos % (Auto) 4.2, Baso % (Auto) 0.5, Absolute Neuts (auto) 4.5, Absolute Lymphs (auto) 1.04, Nucleated RBC % 0 08/22/22 04:45: Sodium 140, Potassium 3.8, Chloride 102, Carbon Dioxide 33.0 H, Anion Gap 5, BUN 27 H, Creatinine 0.39 L, Estim Creat Clear Calc 29.35, Est GFR (MDRD) Af Amer 204, Est GFR (MDRD) Non-Af 169, BUN/Creatinine Ratio 69.2 H, Glucose 93, Calcium 8.2 L Micro: Microbiology 08/16/22 14:00 Blood Culture (Wb) - Anticubital Left Blood Culture - Final No growth in 5 days. 08/16/22 13:30 Blood Culture (Wb) - Anticubital Left Blood Culture - Final No growth in 5 days. 08/16/22 13:40 Urine Catheter - Flores Urine Culture - Final Culture exhibits no growth. 08/16/22 13:30 Nasal Secretion SARS-CoV-2 & FLU Antigen (Rapid) - Final Physical Exam Const alert, oriented x3 and no apparent distress General Appearance: cooperative HEENT head/scalp atraumatic, moist oral mucous membranes, oropharynx normal and gingiva normal Eyes PERRL and EOMs intact bilaterally Neck no lymphadenopathy and supple Lymph Lymphatic: no lymphadenopathy noted and no lymphedema noted Resp normal respiratory effort, normal air movement and clear to auscultation bilaterally Cardio regular rate, regular rhythm, S1 normal heart sound, S2 normal heart sound and no murmurs GI normal to inspection, nondistended, normoactive bowel sounds, soft to palpation, non-tender and non-distended Extremity normal capillary refill, no clubbing, cyanosis or edema and no calf tenderness General Extremity: clubbing, cyanosis and no tenderness to palpation of joints or extremities Skin General Skin Exam: no breakdown Neuro CN's II-XII intact bilaterally, no focal motor deficits, no sensory deficits noted and deep tendon reflexes 2+ bilaterally Psych thought process normal Assessment & Plan Assessment/Plan (1) Acute confusion: (2) Encephalopathy acute: PLAN: Plan #Acute encephalopathy * improving. She was diagnosed with a small left temporal CVA * I however think her episodes of confusion is likely due to her chronic alcohol abuse. * CT of the head and neck showed no evidence of hemodynamically significant stenosis. * 2D echo showed EF of 65%. * EEG showed focal dampening in her right temporal lobe but no evidence of seizure. * On Keppra and thiamine * [facility] reviewed patient and per their documentation is possible she had a seizure and had prolonged postictal confusion always having subclinical seizures. * Patient is alert and oriented and able to communicate now. She does have a ch ronic history of alcohol use disorder though patient 1 but tells me that she knows she drinks a lot in the next room and she tells me that she does not have a problem with alcohol. Asthma did mention during reviewed that she sneaks in a drink as soon as she wakes up in the morning. * On aspirin and statin #Acute left temporal CVA: As above * * #History of alcohol use disorder: On thiamine. #Subclinical hypothyroidism: TSH was elevated but free T4 was normal and T3 was low. Currently on Synthroid 50 mcg daily DVT prophylaxis: Heparin Disposition: Awaiting placement Charges/Coding Visit Charges Inpatient E&M: 84154 Subs Hosp L2
[2022-08-22] MEDS: levETIRAcetam 500 MG Tablet PO (21:32)
[2022-08-22] MEDS: MELATONIN 10 MG TABLET PO (21:32)
[2022-08-22] MEDS: Atorvastatin Calcium 40 MG Tablet PO (21:32)
[2022-08-22] MEDS: Loperamide 2 MG Capsule PO (22:31)
[2022-08-23 02:46] VITALS: BP 144/72; PULSE 64; RESP 18; TEMP 37; O2SAT 100
[2022-08-23 02:48] VITALS: BP 144/72; PULSE 64; RESP 18; TEMP 37; O2SAT 100
[2022-08-23 02:50] VITALS: O2SAT 100
[2022-08-23 03:51] VITALS: BMI 16.3
[2022-08-23] MEDS: Levothyroxine 50 MCG Tablet PO (05:26)
[2022-08-23 06:26] LABS: Absolute Lymphocyte Count 1.05 X10^3/uL (0.83-4.51); Absolute Neutrophil Count 3.6 X10^3/uL (2.0-7.7); Basophil# 0.03 X10^3/uL; Basophil% 0.5 % (0-1); Eosinophil# 0.27 X10^3/uL; Eosinophils% 4.8 % (0-5); Hematocrit 34.8 % (37-47); Hemoglobin 11.7 g/dL (12.0-15.0); Lymphocyte # 1.05 X10^3/ul (0.83-4.51); Lymphocyte % 18.5 % (19-41); Mean Corp Hgb Conc 33.6 g/dL (32-36); Mean Corpuscular Hgb 33.1 pg (27.0-32.0); Mean Corpuscular Volume 98.3 fL (81-99); Mean Platelet Vol. 10.7 fl (6.2-12.0); Monocyte# 0.68 X10^3/uL; NRBC Flagged by Analyzer 0 % (0-5); Neutrophil # 3.63 X10^3/uL (2.7-7.7); Platelet Count 150 K/mm3 (150-450); RBC Distribution Width CV 11.7 % (11.6-14.6); RBC Distribution Width SD 42.9 fl (35.1-43.9); Red Blood Count 3.54 M/mm3 (4.2-5.4); White Blood Count 5.7 K/mm3 (4.4-11.0)
[2022-08-23 06:47] LABS: Anion Gap 5 (5-15); BUN 22 mg/dL (7-18); Calcium,Total 8.5 mg/dL (8.5-10.1); Chloride 103 mmol/L (98-107); Creatinine, Serum 0.32 mg/dL (0.55-1.02); EST Glomerular Filtration Rate 213 mL/min (>60); Est Glom Filt Rate - Afr Amer 257 mL/min (>60); Estimated Creatinine Clearance 29.64 ml/min; Glucose 93 mg/dL (74-106); Potassium 3.8 mmol/L (3.5-5.1); Sodium Level 141 mmol/L (136-145)
[2022-08-23 06:51] VITALS: O2SAT 94
[2022-08-23 08:15] VITALS: BP 116/65; PULSE 89; RESP 16; TEMP 36.7; O2SAT 100
[2022-08-23] MEDS: RisperiDONE 0.25 MG Tablet PO (08:22)
[2022-08-23] MEDS: Heparin Injection (Vial) 5,000 UNIT/ML VIAL 5000 UNIT SC (08:22)
[2022-08-23] MEDS: levETIRAcetam 500 MG Tablet PO (08:23)
[2022-08-23] MEDS: Aspirin 81 MG TAB.CHEW PO (08:23)
[2022-08-23] MEDS: Thiamine Hydrochloride 100 MG Tablet PO (08:23)
[2022-08-23] MEDS: Juven (unflavored) Packet 1 PACKET PO (08:23)
--- NOTE | 2022-08-23 10:29 | CASEMGMT ---
Addendum entered by Louise Covarrubias 08/23/22 13:43: Social Work Per physician, pt is ready for discharge. Orders faxed to TCU. Pt and are aware and agreeable to discharge plan. Nurse updated that pt can discharge. Disposition: TCU, skilled level of care [facility] Original Note: Social Work SW spoke with [facility] in post acute care. Inpatient Rehab does not have a bed available. TCU can accept pt and precert has been obtained. WILVER met with pt, pt spouse and dgt and informed of above. Pt and family agreeable to admission to TCU. Physician updated. Plan: TCU, when medically ready [facility]
--- NOTE | 2022-08-23 11:04 | TREXTCAR_ITS ---
Diet Diet Order/Speech Therapy: 08/18/22 10:29 Diet: Regular - General Food consistency:: Regular Liquid Consistency:: Regular/Thin Dietary Modifications:: No Milk to Drink Type of Dietary Supplement:: Nikolas Is pt able to select menu?: No Diet Comments: no milk products Direct Supervision & Assist, MEALS ONLY IF F ULLY ALERT Routine Orders/Code Status Enema Type: Fleetz Enema Frequency: Daily PRN Suppository Type: Dulcolax 10mg Suppository Frequency: Daily PRN O2 Frequency: PRN Keep PO Greater than or Equal to (%): 90 Therapies Weight Bearing: Weight bearing as tolerated Physical Therapy: Eval and Treat Occupational Therapy: Eval and Treat Problem/Diagnosis (1) Acute confusion: Status: Acute Code(s): R41.0 - Disorientation, unspecified (2) Encephalopathy acute: Status: Acute Code(s): G93.40 - Encephalopathy, unspecified Plan #Acute encephalopathy * improving. She was diagnosed with a small left temporal CVA * I however think her episodes of confusion is likely due to her chronic alcohol abuse. * CT of the head and neck showed no evidence of hemodynamically significant stenosis. * 2D echo showed EF of 65%. * EEG showed focal dampening in her right temporal lobe but no evidence of seizure. * On Keppra and thiamine * [facility] reviewed patient and per their documentation is possible she had a seizure and had prolonged postictal confusion always having subclinical seizures. * Patient is alert and oriented and able to communicate now. She does have a chronic history of alcohol use disorder though patient 1 but tells me that she knows she drinks a lot in the next room and she tells me that she does not have a problem with alcohol. Asthma did mention during reviewed that she sneaks in a drink as soon as she wakes up in the morning. * On aspirin and statin #Acute left temporal CVA: As above * * #History of alcohol use disorder: On thiamine. #Subclinical hypothyroidism: TSH was elevated but free T4 was normal and T3 was low. Currently on Synthroid 50 mcg daily DVT prophylaxis: Heparin Disposition: Awaiting placement Allergies/Procedures Done in Hospital Allergies Milk Containing Products Allergy (Verified 08/19/22 11:06) Diarrhea Procedures: 2-D Echocardiogram Type of Care/Length of Stay Estimated LOS: Convalescent Care Less Than 30 days Type of Care Needed: Skilled Rehab Potential: Fair Prognosis: Fair Additional Orders/Day of Discharge Day of Discharge: 08/23/22 Dietary and Speech Recommendations Dietitian Recommendations/Changes: continue regular diet as tolerated- texture/consistency modifications per HISTOLOGY SPECIALIST; Nikolas BID w/ medpass and Nikolas w/ meals when able; will add vegan protein powder if/when available Discharge Plan Admission Admit Date/Time: 08/16/22 15:37 Primary Reason for Your Visit: encephalopathy Attending Provider: Sandy Cannon Primary Care Provider: Chata Barton Consulting Providers: Aidee Rico ; Jules Shah Discharge Orders/Prescriptions Prescriptions: New atorvastatin 40 mg Tablet 40 mg PO QHS Qty: 30 2RF levothyroxine 50 mcg Tablet 50 mcg PO DAILY@0600 Qty: 30 0RF aspirin 81 mg Tablet,Chewable 81 mg PO BREAKFAST Qty: 30 1RF Continued lorazepam [Ativan] 0.5 mg Tablet 0.5 mg PO QHS PRN (Reason: Anxiety) multivitamin Referrals / Follow Up: Chata Barton DO [Primary Care Provider] - Within 2 Weeks Geovany Mcneal MD [Non-Staff -Ordering Privileges] - Within 2 Weeks (to establish care for stroke. ) Disposition Disposition (needs filled in before D/C Order can be placed): [facility]
--- NOTE | 2022-08-23 11:08 | DS.PCM_ITS ---
Providers Date of Admission: 08/16/22 Date of Discharge: 08/23/22 Primary Care Physician: Chata Barton DO Reason For Visit: ACUTE ENCEPHALOPATHY,ACUTE CONFUSION Diagnosis Discharge Diagnosis (1) Acute confusion: Status: Acute Code(s): R41.0 - Disorientation, unspecified (2) Encephalopathy acute: Status: Acute Code(s): G93.40 - Encephalopathy, unspecified Plan #Acute encephalopathy * improving. She was diagnosed with a small left temporal CVA * I however think her episodes of confusion is likely due to her chronic alcohol abuse. * CT of the head and neck showed no evidence of hemodynamically significant stenosis. * 2D echo showed EF of 65%. * EEG showed focal dampening in her right temporal lobe but no evidence of seizure. * On Keppra and thiamine * [facility] neurology reviewed patient and per their documentation is possible she had a seizure and had prolonged postictal confusion always having subclinical seizures. * Patient is alert and oriented and able to communicate now. She does have a chronic history of alcohol use disorder though patient 1 but tells me that she knows she drinks a lot in the next room and she tells me that she does not have a problem with alcohol. Asthma did mention during reviewed that she sneaks in a drink as soon as she wakes up in the morning. * On aspirin and statin #Acute left temporal CVA: As above * * #History of alcohol use disorder: On thiamine. #Subclinical hypothyroidism: TSH was elevated but free T4 was normal and T3 was low. Currently on Synthroid 50 mcg daily DVT prophylaxis: Heparin Disposition: Awaiting placement Medications at Discharge Home Medications lorazepam 0.5 mg tablet (Ativan) 0.5 mg PO QHS PRN Anxiety 08/16/22 multivitamin 1 tablet PO/SL DAILY supplement 08/16/22 aspirin 81 mg chewable tablet 81 mg PO BREAKFAST heart health 08/23/22 atorvastatin 40 mg tablet 40 mg PO QHS cholesterol 08/23/22 levetiracetam 500 mg tablet (Keppra) 500 mg PO BID seizures 08/23/22 levothyroxine 50 mcg tablet 50 mcg PO DAILY@0600 thyroid 08/23/22 Hospital Course Operations None Summary of Care Provided Minutes Spent on Discharge: 50 Hospital Course: Patient is a 76-year-old female with a past medical history as outlined was admitted through the ED on 08/16/2022 on account of stroke alert. Her last known well was around 11 AM on the day of admission. Her subsequently found out around 11:15 AM when she was confused and having difficulty finding words. [facility] telestroke neurologist reviewed and did not think she was a candidate for th rombolysis. Urinalysis showed no evidence of UTI. Sodium was low at 127. Troponins were not elevated and ammonia was within normal limits as well as the rest of the liver enzymes. Patient apparently had a history of drinking significantly and drank about 12 ounces of wine at night. He was admitted and managed for acute encephalopathy to work-up for stroke. He was placed on high intensity statin and aspirin. She was hydrated gently with iVF in light of hyponatremia. She was also placed on thiamine and folic acid as well as multivites. CT of the brain showed no acute intracranial pathology> MRI of the brain showed small left temporal CVA. 2D echo showed EF of 65%. EEG showed focal dampening in her right temporal lobe but no evidence of seizure. [facility] neurology was consulted and thought she may have had a seizure. She was therefore started on keppra. She was also placed on aspirin and high intensity statin. She was skilled as needing SNF. She was discharged to Transitional Care Unit on 08/23/2022. Patient was seen and examined prior to discharge. She had no complaints and had an uneventful night. Review of systems is otherwise negative. Labs and vitals reviewed. Home meds reviewed and reconciled. Physical Exam Const alert, oriented x3 and no apparent distress General Appearance: cooperative and comfortable Orientation / Consciousness: awake HEENT normocephalic, head/scalp atraumatic, hearing grossly normal bilaterally, moist oral mucous membranes, oropharynx normal and gingiva normal Mouth: oral and palatal mucosa normal Eyes PERRL and EOMs intact bilaterally Neck no lymphadenopathy and supple Lymph Lymphatic: no lymphadenopathy noted and no lymphedema noted Resp normal respiratory effort, normal air movement and clear to auscultation bilaterally Cardio regular rate, regular rhythm, S1 normal heart sound, S2 normal heart sound and no murmurs GI normal to inspection, nondistended, normoactive bowel sounds, soft to palpation, non-tender and non-distended Extremity normal to inspection, full ROM, normal capillary refill, no clubbing, cyanosis or edema and no calf tenderness General Extremity: clubbing, cyanosis and no tenderness to palpation of joints or extremities Skin no rashes or lesions noted General Skin Exam: no breakdown Neuro oriented x3, CN's II-XII intact bilaterally, moves all extremities, no focal motor deficits, no sensory deficits noted and deep tendon reflexes 2+ bilaterally Sensorium / Orientation: awake and alert Motor Exam: strength 5/5 throughout Psych thought process normal Medical Records Data Medical Nutrition Assessment Dietitian: Malnutrition Criteria Met Start: 08/17/22 11:29 Freq: Status: Active Protocol: Document 08/19/22 11:30 (Rec: 08/19/22 11:30 [id number]) Nutrition Malnutrition Evidence of Malnutrition Exists Yes Malnutrition (severe): Acute Illness/Injury Evidenced By Suboptimal Energy Intake ( Severe),Weight Loss (Severe), Physical Changes (Severe) Clinical Problem Acute Disease or Injury Related Malnutrition Etiology severe, acute on likely chronic malnutrition related to inadequate energy intake Signs/Symptoms as evidenced by unintentional wt loss of 2.5#/3% x 2 weeks; severe muscle wasting/fat loss evident in orbital, clavicle, acromion, and temporal areas per physical exam; estimated PO intake meeting <50% of estimated energy needs > 5 days; BMI 16.2 Status Active Problem Recommendation Dietitian Recommendations/Changes continue regular diet as tolerated- texture/consistency modifications per HOME COORDINATOR; Nikolas BID w/ medpass and Nikolas w/ meals when able; will add vegan protein powder if/when available Weight / BMI Weight Weight: 89 lb 4.595 oz Body Mass Index (BMI) 16.3 ABG / Lab / Microbiology Data Result Diagrams: 08/23/22 06:15 08/23/22 06:15 Laboratory: Laboratory Results - last 24 hr 08/23/22 06:15: WBC 5.7, RBC 3.54 L, Hgb 11.7 L, Hct 34.8 L, MCV 98.3, MCH 33.1 H, MCHC 33.6, RDW Std Deviation 42.9, RDW Coeff of Bruna 11.7, Plt Count 150, MPV 10.7, Immature Gran % (Auto) 0.200, Neut % (Auto) 64.0, Lymph % (Auto) 18.5 L, [place] % (Auto) 12.0 H, Eos % (Auto) 4.8, Baso % (Auto) 0.5, Absolute Neuts (auto) 3.6, Absolute Lymphs (auto) 1.05, Nucleated RBC % 0 08/23/22 06:15: Sodium 141, Potassium 3.8, Chloride 103, Carbon Dioxide 33.0 H, Anion Gap 5, BUN 22 H, Creatinine 0.32 L, Estim Creat Clear Calc 29.64, Est GFR (MDRD) Af Amer 257, Est GFR (MDRD) Non-Af 213, BUN/Creatinine Ratio 69.0 H, Glucose 93, Calcium 8.5 Microbiology: Microbiology 08/23/22 10:40 Nasal Secretion SARS-CoV-2 Antigen (Rapid) - Final 08/16/22 14:00 Blood Culture (Wb) - Anticubital Left Blood Culture - Final No growth in 5 days. 08/16/22 13:30 Blood Culture (Wb) - Anticubital Left Blood Culture - Final No growth in 5 days. 08/16/22 13:40 Urine Catheter - Flores Urine Culture - Final Culture exhibits no growth. 08/16/22 13:30 Nasal Secretion SARS-CoV-2 & FLU Antigen (Rapid) - Final D/C Instructions Discharge Diet: Low fat / Low cholesterol Discharge Activity: Return to Normal Activity Weight Bearing Status: Weight bearing as tolerated Call your doctor if you observe: Fever of 101 or Higher, Shortness of breath, Dizziness, Swelling in the ankles, Chest pain and Uncontrolled pain Meaningful Use Info Meaningful Use Diagnoses (Choose all that apply): Ischemic CVA CVA Therapy Assessed for PT,OT and/or ST?: Yes Ischemic Stroke Antithrombotic order at d/c?: Yes Dx of Atrial fib/flutter?: No Anticoagulant at discharge?: No Reason anticoagulant not ordered: Treatment not Indicated Statins at discharge?: Yes Primary Dx Acute Ischemic CVA?: Yes IV thrombolytic ordered during stay?: No Reason IV thrombolytic not ordered: Treatment not Indicated Discharge Plan Admission Admit Date/Time: 08/16/22 15:37 Primary Reason for Your Visit: encephalopathy Attending Provider: Sandy Cannon Primary Care Provider: Chata Barton Consulting Providers: Aidee Rico ; Jules Shah Discharge Orders/Prescriptions Prescriptions: New levetiracetam [Keppra] 500 mg tablet 500 mg PO BID Qty: 60 1RF Continued lorazepam [Ativan] 0.5 mg Tablet 0.5 mg PO QHS PRN (Reason: Anxiety) multivitamin 1 tablet PO/SL DAILY No Action atorvastatin 40 mg tablet 40 mg PO QHS levothyroxine 50 mcg tablet 50 mcg PO DAILY@0600 aspirin 81 mg tablet,chewable 81 mg PO BREAKFAST Referrals / Follow Up: Chata Barton DO [Primary Care Provider] - Within 2 Weeks Geovany Mcneal MD [Non-Staff -Ordering Privileges] - Within 2 Weeks (to establish care for stroke. ) Disposition Disposition (needs filled in before D/C Order can be placed): [facility] Charges/Coding Visit Charges Inpatient E&M: 18831 Disch Hosp >30min
--- NOTE | 2022-08-23 11:15 | PHA.DC.MR ---
Pharmacy Service has performed discharge medication reconciliation for this patient. The patient's discharge medication list was reviewed for discrepancies and discrepancies were resolved. Home Medications lorazepam 0.5 mg tablet (Ativan) 0.5 mg PO QHS PRN Anxiety 08/16/22 multivitamin supplement 08/16/22 aspirin 81 mg chewable tablet 81 mg PO BREAKFAST #30 tabs 08/23/22 atorvastatin 40 mg tablet 40 mg PO QHS #30 tabs 08/23/22 levothyroxine 50 mcg tablet 50 mcg PO DAILY@0600 #30 tabs 08/23/22
[2022-08-23 13:52] VITALS: BMI 16.3
[2022-08-23 13:58] VITALS: BP 118/63; PULSE 96; RESP 16; TEMP 36.7; O2SAT 100
== END 2022-08-23 14:03 | disposition skilled nursing facility (03) | DRG 64 ==
LOC: ED 14:42 → PCU 15:50
PROVIDERS: Family Medicine; Admitting Provider Internal Medicine; Emergency Provider Emergency Medicine; PCP Family Medicine; Visit Provider Student in an Organized Health Care Education/Training Program
DX: I63.9 Cerebral infarction, unspecified (principal); E43 Unspecified severe protein-calorie malnutrition; G93.41 Metabolic encephalopathy; E87.1 Hypo-osmolality and hyponatremia; Z68.1 Body mass index [BMI] 19.9 or less, adult; F10.10 Alcohol abuse, uncomplicated; F41.9 Anxiety disorder, unspecified; E03.8 Other specified hypothyroidism; R47.01 Aphasia; R63.0 Anorexia; R45.1 Restlessness and agitation; R29.703 NIHSS score 3; Y90.0 Blood alcohol level of less than 20 mg/100 ml; Z79.899 Other long term (current) drug therapy; Z87.891 Personal history of nicotine dependence
CPT/HCPCS: 36415; 36600; 51702; 70450; 70496; 70498; 70553; 71045; 72192; 73521; 80048; 80053; 80061; 80076; 80307; 81001; 82077; 82140; 82607; 82652; 82746; 82803; 82962; 83605; 83735; 83930; 84100; 84439; 84443; 84481; 84484; 85025; 85610; 85730; 87040; 87086; 87426; 87428; 92526; 92610; 93005; 93308; 94762; 95819; 97110; 97116; 97162; 97166; 97530; 97535; 97802; 97803; 99285; A9575; J7030; J7040; Q9967; A4216; J3490

== ENCOUNTER 2022-08-23 14:11 | Inpatient (IN) | payer MEDICARE, SELFPAY ==
[2022-08-23 14:21] VITALS: BP 101/52; PULSE 89; RESP 20; TEMP 36.3; O2SAT 99; BMI 16.4
--- NOTE | 2022-08-23 15:26 | NURSING ---
dr johnson called & wants pt on Keppra 500mg BID. order added
[2022-08-23] MEDS: levETIRAcetam 500 MG Tablet PO (17:33)
--- NOTE | 2022-08-23 18:45 | HP.PCM_ITS ---
HPI - General General Date of Admission: 08/23/22 Date of Service: 08/23/22 Chief Complaint: Here for rehabilitation. HPI Narrative 08/16/2022 CHIOMA ABAD, is a 76 Female who presents to [facility] Emergency Department with stroke alert. Confusion, expressive aphasia, stool incontinence, Weakness of legs, difficulty standing. Only says thank you. NIHSS 3. WBC 4.0, Sodium 127, Troponin okay. INR okay, PTT okay, LFT okay, Ammonia okay. Urinalysis negative, Lactate 2.1, covid19 negative, influenza a/b negative. CT brain okay, CTA head/neck negative for large vessel occlusion. Chest X-ray okay. Stroke neurology recommended NO TPA. Given IV fluids, Ativan, thiamine, folate for possible Wernicke's encephalopathy. Patient quit drinking wine 3 weeks ago, she admits to 1.5 large glass of wine per night, she quit because she thought she was drinking too much. 08/16/2022 Admit to Hospital. MRI brain, Echo, aspirin, statin, PT/OT/ST for stroke. Risperdal, Ativan given for agitation. 08/16/2022 Echo EF 65%. Right ventricular systolic pressure 27mm HG. 08/17/2022 Agitated, sitter required. Start Risperidone for agitation. 08/18/2022 Not interactive, opens eyes to stimuli. Unable to tolerate MRI brain secondary to agitation. CT pelvis negative for fracture. 08/19/2022 More alert, interactive. MRI brain showed left temporal lobe stroke. EEG showed focal dampening right temporal lobe. Continue Keppra for seizure. Continue Thiamine for Wernicke's encephalopathy. 08/20/2022 Sitting up, feeding herself. 08/21/2022 Feeling better, waiting for placement. Synthroid 50mcg daily for subclinical hypothyroidism. 08/22/2022 No overnight events. Confusion secondary to stroke/alcohol withdrawal/seizure disorder. 08/23/2022 Admit to TCU with debility, here for rehabilitation, strengthening, prior to discharge home with . [facility] Medical History Alcohol abuse Anxiety Home Medications lorazepam 0.5 mg tablet (Ativan) 0.5 mg PO QHS PRN Anxiety 08/16/22 [History Last Taken Unknown] multivitamin 1 tablet PO/SL DAILY supplement 08/16/22 [History Last Taken Unknown] aspirin 81 mg chewable tablet 81 mg PO BREAKFAST heart health 08/23/22 [History Last Taken Unknown] atorvastatin 40 mg tablet 40 mg PO QHS cholesterol 08/23/22 [History Last Taken Unknown] levetiracetam 500 mg tablet (Keppra) 500 mg PO BID seizures 08/23/22 [History Last Taken Unknown] levothyroxine 50 mcg tablet 50 mcg PO DAILY@0600 thyroid 08/23/22 [History Last Taken Unknown] Allergy/AdvReac Type Severity Reaction Status Date / Time Milk Containing Products Allergy Diarrhea Verified 08/19/22 11:06 Surgical History Hx of hysterectomy Social History (Updated 08/23/22 @ 18:[address] Jos Hooks MD) household members: spouse Smoking Status: Former smoker alcohol intake: former year quit: 2022 details: Recently quit drinking alcohol 2-3 weeks ago. ROS Constitutional Constitutional: Denies chills, fever(s) or weight gain ENT HEENT: Denies headache(s), nasal congestion or nasal discharge Cardiovascular Cardiovascular: Denies chest pain or palpitations Respiratory/Chest Respiratory/Chest: Denies cough, excessive phlegm production or shortness of breath with exertion Gastrointestinal Gastrointestinal: Denies abdominal pain, nausea or vomiting Genitourinary Genitourinary: Denies dysuria Musculoskeletal Musculoskeletal: Denies joint pain or joint swelling Integumentary Integumentary: Denies rash or wounds Neurologic Neurologic: Denies focal weakness, numbness or tingling Psychiatric Psychiatric: Denies anxiety, auditory hallucinations, depression, homicidal ideation or suicidal ideation Vital Signs Vital Signs Vital Signs: 08/23/22 14:21 08/23/22 14:21 Temperature 97.3 F L Temperature Source Oral Pulse Rate 89 89 Pulse Rhythm Regular Pulse Strength Normal (2+) Respiratory Rate 20 H 20 H Respiratory Effort Normal Non-Labored Respiratory Depth Normal Respiratory Pattern Normal Blood Pressure 101/52 L Blood Pressure Mean 68 Blood Pressure Source Manual Blood Pressure Position Sitting Blood Pressure Location Right Arm Pulse Ox 99 99 Oxygen Delivery Method Room Air Room Air Weight Weight: 40.642 kg Body Mass Index (BMI) 16.4 Physical Exam Const alert General Appearance: cooperative HEENT normocephalic Eyes PERRL and EOMs intact bilaterally Neck supple, no JVD and no carotid bruits Resp normal respiratory effort, normal air movement and clear to auscultation bilaterally Cardio regular rate and regular rhythm GI normal to inspection, nondistended, normoactive bowel sounds, non-tender and non-distended Extremity normal capillary refill General Extremity: Negative for edema Skin no rashes or lesions noted General Skin Exam: no breakdown Psych affect normal Appearance: appropriate Assessment & Plan Assessment/Plan (1) Debility: (2) Encephalopathy acute: (3) Stroke: (4) Hyponatremia: (5) Seizure disorder: (6) Subclinical hypothyroidism: (7) Alcohol abuse: (8) Anxiety: PLAN: Plan 76 year old female with below past medical history hospitalized for stroke, complicated by agitated encephalopathy, alcohol withdrawal, seizure disorder, hyponatremia, admitted to TCU with debility, here for rehabilitation, strengthening, prior to discharge home with . * Debility - PT/OT/ST. * Pain - Tylenol 1000mg q6h prn pain (1-10). * Bowel - senna/colace 1 tablet bid, Dulcolax 10mg po daily prn. * Adult immunization - Administer pneumonia vaccine, covid19 vaccine, flu vaccine. * DVT prophylaxis - Hold, monitor. * Stroke - Aspirin 81mg daily. * Hyperlipidemia - Atorvastatin 40mg qhs. * Seizure disorder - Keppra 500mg bid. * Hypothyroidism - Levothyroxine 50mcg daily. * Nutrition - MVI daily.
[2022-08-23] MEDS: Atorvastatin Calcium 40 MG Tablet PO (20:56)
[2022-08-24] MEDS: Levothyroxine 50 MCG Tablet PO (05:25)
[2022-08-24] MEDS: levETIRAcetam 500 MG Tablet PO ×2 (05:25→17:15)
[2022-08-24 07:00] VITALS: O2SAT 98
[2022-08-24] MEDS: Aspirin 81 MG TAB.CHEW PO (08:41)
[2022-08-24] MEDS: Tuberculin,Purif.prot.deriv. 50 TU/ML Vial 0.1 ML ID (09:03)
[2022-08-24 09:50] VITALS: BMI 16.3
[2022-08-24] MEDS: Multivitamins,Therapeutic Tablet 1 TABLET PO (11:46)
--- NOTE | 2022-08-24 14:25 | PCM.PN.DRR ---
TCU RX Drug Regimen Review Subjective: TCU Admission. 76 YOF presented to the ER with stroke alert. Hospitalized for stroke, complicated by agitated encephalopathy, alcohol withdrawal, seizure disorder, hyponatremia. Admitted to TCU with debility for strengthening and rehabilitation. Objective: Allergies Milk Containing Products Allergy (Verified 08/19/22 11:06) Diarrhea Current Medications Generic Name Dose Route Start Last Admin Trade Name Freq PRN Reason Stop Dose Admin Acetaminophen 1,000 mg 08/23/22 18:58 Acetaminophen 500 Mg Tablet PO Q6H PRN PRN Pain Score 1-10 Aspirin 81 mg 08/24/22 08:00 08/24/22 08:41 Aspirin 81 Mg Tab.Chew PO 81 mg BREAKFAST ROXANNE Administration Atorvastatin Calcium 40 mg 08/23/22 22:00 08/23/22 20:56 Atorvastatin Calcium 40 Mg Tablet PO 40 mg QHS ROXANNE Administration Bisacodyl 10 mg 08/23/22 14:35 Bisacodyl 5 Mg Tablet PO DAILY PRN Constipation Levetiracetam 500 mg 08/23/22 18:00 08/24/22 05:25 Levetiracetam 500 Mg Tablet PO 500 mg BID ROXANNE Administration Levothyroxine Sodium 50 mcg 08/24/22 06:00 08/24/22 05:25 Levothyroxine 50 Mcg Tablet PO 50 mcg DAILY@0600 ROXANNE Administration Multivitamins 1 tablet 08/24/22 08:00 08/24/22 11:46 Multivitamins,Therapeutic Tablet PO 1 tablet BREAKFAST ROXANNE Administration Senna/Docusate Sodium 1 tablet 08/24/22 06:00 08/24/22 05:21 Senna/Docusate Sodium 1 Tablet PO Not Given BID ROXANNE Sodium Chloride 10 - 40 ml 08/23/22 14:53 0.9% Saline Lock 10 Ml Syringe IV UD PRN SALINE FLUSH Tuberculin PPD 0.1 ml 08/31/22 10:00 Tuberculin,Purif.Prot.Deriv. 50 Tu/Ml Vial ID 08/31/22 10:01 X1 ONE Problem List (Last Reviewed 08/23/22 @ 18:[address] Jos Hooks MD) Anxiety (Acute) Alcohol abuse (Acute) Subclinical hypothyroidism (Acute) Seizure disorder (Acute) Hyponatremia (Acute) Stroke (Acute) Debility (Acute) Encephalopathy acute (Acute) Vital Signs Temp Pulse Resp BP Pulse Ox O2 Del Method 97.3 F L 89 20 H 101/52 L 98 Room Air 08/23/22 14:21 08/23/22 14:21 08/23/22 14:21 08/23/22 14:21 08/24/22 07:00 08/24/22 09:41 Oxygen Delivery Method Room Air Weight: 40.54 kg Body Mass Index (BMI) 16.3 Assessment/Plan: 1. Pain: acetaminophen 1000mg PO Q6H PRN pain 1-10. No PRN doses. Please continue to monitor for increased pain and PRN usage. 2. Bowel: senna/docusate 1T PO BID and bisacodyl 10mg PO daily PRN constipation. No PRN doses have been given. Please continue to monitor for constipation (last documented bowel movement was 08/22/22) and PRN usage. 3. Stroke: aspirin 81mg PO daily. Please continue to monitor for S/S of bleeding and hemoglobin (last 11.7g/dL). 4. Hyperlipidemia: atorvastatin 40mg PO QHS. Please continue to monitor lipid panel (last 08/17/22), LFTs (last 08/17/22) and muscle pain. 5. Seizure disorder: levetiracetam 500mg PO BID. Please continue to monitor for drowsiness, fatigue, falls/fractures (BEERs criteria), renal function (BEERs criteria, dose appropriate for current CrCl of 49 ml/min). 6. Hypothyroidism: levothyroxine 50mcg PO daily. Please continue to monitor TSH (last 08/16/22) and S/S of hypo/hyperthyroidism. 7. Nutrition: multivitamin 1T PO daily. Please continue to monitor. Assessment/Plan for indications treated with psychotropic medications: None Medical chart and medication regimen reviewed. The following medication irregularities or issues were identified: None Date of Note:: 08/24/22
[2022-08-24 15:47] VITALS: BP 119/70; PULSE 63; RESP 15; TEMP 37; O2SAT 97
--- NOTE | 2022-08-24 16:25 | CHAPLAIN ---
Type of Pastoral Visit _x__ Initial Visit ___ Follow-up Visit ___ On-call Visit ___ General Patient Visit ___ Spiritual Assessment ___ Family Conference ___ Bereavement ___ Rapid Response ___ Code Blue ___ Other (describe below) Pastoral Care Referral From _x__ Patient ___ Family ___ Nurse ___ Physician ___ Homicide Squad Captain ___ Lease Administration Analyst ___ Other (describe below) Sacrament/Intervention _x__ Active listening ___ Anointing ___ Cheondoism ___ Bereavement ___ Communion _x__ Corinna exploration ___ _x__ Life review _x__ Prayer ___ Reconciliation ___ Sacrament of Sick _x__ Supportive presence ___ Wedding ___ Other (describe below) Pastoral Comments patient is expressive about having a visit from this field software engineer; pt 'amazed that eucharistic ministers from [place] have already been there twice; pt and spouse are in the room; pt is very talkative about family and their move from [place] to be close to family; now they are more thankful since this stroke; pt is outspoken about her connection to the Religion Mor[employer] and identifies herself as a liberal Religion; pt does welcome presence of this field software engineer, his prayers, and future visits when able;
[2022-08-24] MEDS: Senna/Docusate Sodium 1 Tablet PO (17:15)
[2022-08-24 17:56] VITALS: BP 104/56; PULSE 64; RESP 16; TEMP 36.7; O2SAT 98
[2022-08-24] MEDS: Atorvastatin Calcium 40 MG Tablet PO (20:16)
[2022-08-25] MEDS: Senna/Docusate Sodium 1 Tablet PO ×2 (05:57→17:17)
[2022-08-25] MEDS: levETIRAcetam 500 MG Tablet PO ×2 (05:57→17:17)
[2022-08-25] MEDS: Levothyroxine 50 MCG Tablet PO (05:57)
[2022-08-25] MEDS: Acetaminophen 500 MG Tablet 1000 MG PO (06:00)
[2022-08-25 06:40] VITALS: O2SAT 97
[2022-08-25] MEDS: Aspirin 81 MG TAB.CHEW PO (08:16)
[2022-08-25] MEDS: Multivitamins,Therapeutic Tablet 1 TABLET PO (08:16)
[2022-08-25 09:03] LABS: Absolute Lymphocyte Count 0.85 X10^3/uL (0.83-4.51); Absolute Neutrophil Count 3.4 X10^3/uL (2.0-7.7); Basophil# 0.04 X10^3/uL; Basophil% 0.8 % (0-1); Eosinophil# 0.19 X10^3/uL; Eosinophils% 3.8 % (0-5); Hematocrit 38.7 % (37-47); Hemoglobin 12.8 g/dL (12.0-15.0); Lymphocyte # 0.85 X10^3/ul (0.83-4.51); Mean Corp Hgb Conc 33.1 g/dL (32-36); Mean Corpuscular Volume 99.7 fL (81-99); Mean Platelet Vol. 10.3 fl (6.2-12.0); Monocyte# 0.55 X10^3/uL; NRBC Flagged by Analyzer 0 % (0-5); Neutrophil # 3.35 X10^3/uL (2.7-7.7); Neutrophil % 67.2 % (47-70); Platelet Count 209 K/mm3 (150-450); RBC Distribution Width CV 11.8 % (11.6-14.6); Red Blood Count 3.88 M/mm3 (4.2-5.4)
[2022-08-25 09:27] LABS: Anion Gap 4 (5-15); BUN 31 mg/dL (7-18); BUN/Creat Ratio 56.6 RATIO (10-20); Calcium,Total 8.9 mg/dL (8.5-10.1); Chloride 100 mmol/L (98-107); Creatinine, Serum 0.55 mg/dL (0.55-1.02); EST Glomerular Filtration Rate 114 mL/min (>60); Est Glom Filt Rate - Afr Amer 138 mL/min (>60); Estimated Creatinine Clearance 29.67 ml/min; Glucose 113 mg/dL (74-106); Potassium 4.5 mmol/L (3.5-5.1); Sodium Level 138 mmol/L (136-145)
--- NOTE | 2022-08-25 09:37 | NS ---
Provided copy of daily specials/first choice menu w/ instructions on how to order. Res appreciative of increased choices.
--- NOTE | 2022-08-25 11:45 | NURSING ---
[employer] Sales Counter Manager Note; Activity Asset: Jaden Willson is independent in her choice of daily activities. Her family is her daily. She has visits from [facility] along w/Anabelel Leal. Anamika will watch tv, read, work on word puzzles and walk the halls independently.
[2022-08-25 14:01] VITALS: BP 112/63; PULSE 80; RESP 16; TEMP 36.7; O2SAT 99
--- NOTE | 2022-08-25 14:31 | CASEMGMT ---
Social Work SW met with pt and completed psychosocial assessment. SW discussed code status and MOLST form with pt and assisted pt in completing MOLST. Pt wishes to be DNRCCA. Pt is uncertain of wishes concerning intubation and states she would want her notified prior to intubation and the decision to be his based on the circumstances. This is noted on the MOLST form. Information provided to physician and will be placed on pt chart. SW educated pt on [facility] Medicare benefit and that NRD is 08/26 and continued stay is not guaranteed. Pt's goal is to return home with her spouse and to her previous level of independence. SW to continue to follow for d/c planning and support. MARILYN Palm
[2022-08-25] MEDS: Menthol/Lanolin/Calamine/Znox 113 GM Tube 1 APPLIC TOPICAL (18:02)
[2022-08-25] MEDS: Atorvastatin Calcium 40 MG Tablet PO (20:59)
[2022-08-26 06:47] VITALS: BP 121/65; PULSE 79; RESP 17; TEMP 36.2; O2SAT 98
[2022-08-26] MEDS: levETIRAcetam 500 MG Tablet PO ×2 (06:49→17:07)
[2022-08-26] MEDS: Senna/Docusate Sodium 1 Tablet PO ×2 (06:49→17:07)
[2022-08-26] MEDS: Levothyroxine 50 MCG Tablet PO (06:49)
[2022-08-26] MEDS: Menthol/Lanolin/Calamine/Znox 113 GM Tube 1 APPLIC TOPICAL ×2 (06:50→17:08)
[2022-08-26 07:45] VITALS: O2SAT 98
[2022-08-26] MEDS: Aspirin 81 MG TAB.CHEW PO (08:09)
[2022-08-26] MEDS: Multivitamins,Therapeutic Tablet 1 TABLET PO (08:09)
[2022-08-26 14:43] VITALS: BP 101/59; PULSE 86; RESP 18; TEMP 36.4; O2SAT 97
--- NOTE | 2022-08-26 14:47 | CASEMGMT ---
Social Work Insurance issued LCD 08/28, DC 08/29. SW spoke with pt and family in room. Pt agreeable to DC. Offered outpatient therapy. Pt agreeable and requesting [facility]. No DME needs. to transport. BIMS () and PHQ-9 (09/30) completed for MDS assessment. Referral faxed to [employer] [employer]. Plan: DC home with 08/29, [facility] PT Corazon Hargrove, [employer]ICAL [employer] CHIEF AUTOMATION DESIGN ENGINEER
--- NOTE | 2022-08-26 19:49 | DS.PCM_ITS ---
Providers Date of Admission: 08/23/22 Primary Care Physician: Chata Barton DO Reason For Visit: CVA Diagnosis Discharge Diagnosis (1) Debility: Status: Acute Code(s): R53.81 - Other malaise (2) Encephalopathy acute: Status: Acute Code(s): G93.40 - Encephalopathy, unspecified (3) Stroke: Status: Acute Code(s): I63.9 - Cerebral infarction, unspecified (4) Hyponatremia: Status: Acute Code(s): E87.1 - Hypo-osmolality and hyponatremia (5) Seizure disorder: Status: Acute Code(s): G40.909 - Epilepsy, unspecified, not intractable, without status epilepticus (6) Subclinical hypothyroidism: Status: Acute Code(s): E03.8 - Other specified hypothyroidism (7) Alcohol abuse: Status: Acute Code(s): F10.10 - Alcohol abuse, uncomplicated (8) Anxiety: Status: Acute Code(s): F41.9 - Anxiety disorder, unspecified Plan 76 year old female with below past medical history hospitalized for stroke, complicated by agitated encephalopathy, alcohol withdrawal, seizure disorder, hyponatremia, admitted to TCU with debility, here for rehabilitation, strengthening, prior to discharge home with . * Debility - PT/OT/ST. * Pain - Tylenol 1000mg q6h prn pain (1-10). * Bowel - senna/colace 1 tablet bid, Dulcolax 10mg po daily prn. * Adult immunization - Administer pneumonia vaccine, covid19 vaccine, flu vaccine. * DVT prophylaxis - Hold, monitor. * Stroke - Aspirin 81mg daily. * Hyperlipidemia - Atorvastatin 40mg qhs. * Seizure disorder - Keppra 500mg bid. * Hypothyroidism - Levothyroxine 50mcg daily. * Nutrition - MVI daily. Medications at Discharge Home Medications aspirin 81 mg chewable tablet 81 mg PO BREAK[facility]ST [facility] 08[facility]22 acetaminophen 500 mg tablet 1,000 mg PO Q6H PRN PRN Pain Score 1-10 #0 tabs 08/26/22 atorvastatin 40 mg tablet 40 mg PO QHS 30 days #30 tabs 08/26/22 levetiracetam 500 mg tablet 500 mg PO BID 30 days #60 tabs 08/26/22 levothyroxine 50 mcg tablet 50 mcg PO DAILY@0600 30 days #30 tabs 08/26/22 Hospital Course Operations None Procedures None Summary of Care Provided Minutes Spent on Discharge: 35 Hospital Course: 76 year old female with below past medical history hospitalized for stroke, complicated by agitated encephalopathy, alcohol withdrawal, seizure disorder, hyponatremia, admitted to TCU with debility, here for rehabilitation, strengthening, prior to discharge home with . Discharge home with 08/29/2022, [facility]. Physical Exam Const alert General Appearance: cooperative HEENT normocephalic Eyes PERRL and EOMs intact bilaterally Neck supple, no JVD and no carotid bruits Resp normal respiratory effort, normal air movement and clear to auscultation bilaterally Cardio regular rate and regular rhythm GI normal to inspection, nondistended, normoactive bowel sounds, non-tender and non-distended Extremity normal capillary refill General Extremity: Negative for edema Skin no rashes or lesions noted General Skin Exam: no breakdown Psych affect normal Appearance: appropriate Medical Records Data Medical Nutrition Assessment Dietitian: Malnutrition Criteria Met Start: 08/24/22 14:53 Freq: Status: Active Protocol: Document 08/24/22 14:53 (Rec: 08/24/22 14:53 [id number]) Nutrition Malnutrition Evidence of Malnutrition Exists Yes Malnutrition (severe): Acute Illness/Injury Evidenced By Suboptimal Energy Intake ( Severe),Weight Loss (Severe), Physical Changes (Severe) Clinical Problem Acute Disease or Injury Related Malnutrition Etiology severe, acute on likely chronic malnutrition related to inadequate energy intake Signs/Symptoms as evidenced by unintentional wt loss of 2.4#/3% x 3-4 weeks ; severe muscle wasting/fat loss evident in orbital, clavicle, acromion, and temporal areas per physical exam; estimated PO intake meeting <50% of estimated energy needs > 5 days; BMI 16. 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; Nikolas w/ meals for additional nutrition if consumed Weight / BMI Weight Weight: 40.54 kg Body Mass Index (BMI) 16.3 ABG / Lab / Microbiology Data Result Diagrams: 08/25/22 08:48 08/25/22 08:48 Microbiology: Microbiology 08/25/22 05:30 Nasal Secretion SARS-CoV-2 Antigen (Rapid) - Final D/C Instructions Discharge Diet: No restrictions Discharge Activity: Return to Normal Activity and May Shower May resume sexual activity in: No Restrictions Weight Bearing Status: Weight bearing as tolerated Call your doctor if you observe: Fever of 101 or Higher, Inability to urinate, Inability to have a bowel movement, Shortness of breath, Dizziness, Fainting spells, Swelling in the ankles, Chest pain and Uncontrolled pain Additional Instructions: Discharge home with 08/29/2022, [facility] Please Follow Up With: Geovany Mcneal MD When: 4 weeks. Meaningful Use Info Meaningful Use Diagnoses (Choose all that apply): Ischemic CVA CVA Therapy Assessed for PT,OT and/or ST?: Yes Ischemic Stroke Antithrombotic order at d/c?: Yes Dx of Atrial fib/flutter?: No Statins at discharge?: Yes Primary Dx Acute Ischemic CVA?: Yes IV thrombolytic ordered during stay?: No Reason IV thrombolytic not ordered: Treatment not Indicated Discharge Plan Admission Admit Date/Time: 08/23/22 14:11 Primary Reason for Your Visit: Debility. Attending Provider: Jos Hooks Chi Primary Care Provider: Chata Barton Instructions Additional Instructions / Restrictions: Discharge home with 08/29/2022, [facility] Discharge Orders/Prescriptions Prescriptions: New atorvastatin 40 mg Tablet 40 mg PO QHS 30 Days Qty: 30 0RF levetiracetam 500 mg Tablet 500 mg PO BID 30 Days Qty: 60 0RF acetaminophen 500 mg Tablet 1,000 mg PO Q6H PRN PRN (Reason: Pain Score 1-10) Qty: 0 0RF levothyroxine 50 mcg Tablet 50 mcg PO DAILY@0600 30 Days Qty: 30 0RF Continued aspirin 81 mg tablet,chewable 81 mg PO BREAKFAST Discontinued lorazepam [Ativan] 0.5 mg Tablet 0.5 mg PO QHS PRN (Reason: Anxiety) multivitamin 1 tablet PO/SL DAILY atorvastatin 40 mg tablet 40 mg PO QHS levothyroxine 50 mcg tablet 50 mcg PO DAILY@0600 levetiracetam [Keppra] 500 mg tablet 500 mg PO BID Referrals / Follow Up: Chata Barton DO [Primary Care Provider] - 08/31/22 10:50 am Disposition Disposition (needs filled in before D/C Order can be placed): Home, Self Care
[2022-08-26] MEDS: Atorvastatin Calcium 40 MG Tablet PO (21:53)
[2022-08-26 22:00] VITALS: PULSE 73; RESP 16; O2SAT 99
[2022-08-27] MEDS: levETIRAcetam 500 MG Tablet PO ×2 (05:05→17:25)
[2022-08-27] MEDS: Levothyroxine 50 MCG Tablet PO (05:05)
[2022-08-27] MEDS: Senna/Docusate Sodium 1 Tablet PO ×2 (05:05→17:26)
[2022-08-27] MEDS: Menthol/Lanolin/Calamine/Znox 113 GM Tube 1 APPLIC TOPICAL ×2 (05:12→17:30)
[2022-08-27] MEDS: Aspirin 81 MG TAB.CHEW PO (08:08)
[2022-08-27] MEDS: Multivitamins,Therapeutic Tablet 1 TABLET PO (08:08)
[2022-08-27 09:47] VITALS: O2SAT 98
--- NOTE | 2022-08-27 12:58 | MDS.RN ---
Pain interview completed for KAMERON 08/29/22.
[2022-08-27 14:13] VITALS: BP 111/58; PULSE 76; RESP 16; TEMP 36.2; O2SAT 99
[2022-08-27] MEDS: Atorvastatin Calcium 40 MG Tablet PO (20:16)
[2022-08-28] MEDS: levETIRAcetam 500 MG Tablet PO ×2 (05:52→18:12)
[2022-08-28] MEDS: Menthol/Lanolin/Calamine/Znox 113 GM Tube 1 APPLIC TOPICAL ×2 (05:52→18:14)
[2022-08-28] MEDS: Levothyroxine 50 MCG Tablet PO (05:52)
[2022-08-28] MEDS: Senna/Docusate Sodium 1 Tablet PO ×2 (05:52→18:12)
[2022-08-28] MEDS: Multivitamins,Therapeutic Tablet 1 TABLET PO (08:46)
[2022-08-28] MEDS: Aspirin 81 MG TAB.CHEW PO (08:46)
[2022-08-28 12:47] VITALS: BP 125/63; PULSE 94; RESP 15; TEMP 36.6; O2SAT 98
[2022-08-28] MEDS: Atorvastatin Calcium 40 MG Tablet PO (20:26)
[2022-08-28 21:00] VITALS: PULSE 73; RESP 16; O2SAT 93
[2022-08-29] MEDS: levETIRAcetam 500 MG Tablet PO (05:55)
[2022-08-29] MEDS: Senna/Docusate Sodium 1 Tablet PO (05:55)
[2022-08-29] MEDS: Levothyroxine 50 MCG Tablet PO (05:55)
[2022-08-29] MEDS: Aspirin 81 MG TAB.CHEW PO (08:30)
[2022-08-29] MEDS: Multivitamins,Therapeutic Tablet 1 TABLET PO (08:30)
[2022-08-29 09:28] VITALS: PULSE 75; RESP 16; O2SAT 98
[2022-08-29 09:41] VITALS: BP 119/47; PULSE 82; RESP 14; TEMP 36.8; O2SAT 97
--- NOTE | 2022-09-01 11:56 | MDS.RN ---
Information for the mds was obtained from review of the clinical record, interview of resident, staff, and direct observation of resident's care.
== END 2022-08-29 11:30 | disposition home or self-care (01) | DRG 57 ==
PROVIDERS: Admitting Provider Family Medicine Geriatric Medicine; PCP Family Medicine; Visit Provider Family Medicine Geriatric Medicine
DX: I69.320 Aphasia following cerebral infarction (principal); E51.2 Wernicke's encephalopathy; F10.130 Alcohol abuse with withdrawal, uncomplicated; G40.909 Epilepsy, unspecified, not intractable, without status epilepticus; I69.349 Monoplegia of lower limb following cerebral infarction affecting unspecified side; E03.8 Other specified hypothyroidism; F41.9 Anxiety disorder, unspecified; Z87.891 Personal history of nicotine dependence; Z79.899 Other long term (current) drug therapy; Z79.82 Long term (current) use of aspirin; Z79.890 Hormone replacement therapy
CPT/HCPCS: 80048; 85025; 87811; 92610; 97110; 97116; 97162; 97166; 97530; 97535; 97802

== ENCOUNTER → 2022-09-09 | Outpatient (CLI) | payer MEDICARE, SELFPAY ==
[2022-09-09 12:41] LABS: Hemoglobin A1c 5.4 % (3.8-5.6)
[2022-09-09 12:42] LABS: ALB/GLOB Ratio 1.4 RATIO (0.9-2.4); AST(SGOT) 24 U/L (15-37); Alanine Aminotransfer ALT/SGPT 36 U/L (13-56); Albumin, Serum 3.8 g/dL (3.2-5.0); Alkaline Phosphatase 77 U/L (45-117); Anion Gap 4 (5-15); BUN 13 mg/dL (7-18); BUN/Creat Ratio 27.4 RATIO (10-20); Calcium,Total 8.7 mg/dL (8.5-10.1); Chloride 96 mmol/L (98-107); Creatinine, Serum 0.48 mg/dL (0.55-1.02); EST Glomerular Filtration Rate 134 mL/min (>60); Est Glom Filt Rate - Afr Amer 162 mL/min (>60); Globulin 2.7 g/dL (2.2-4.2); Glucose 127 mg/dL (74-106); Potassium 3.9 mmol/L (3.5-5.1); Protein, Total 6.5 g/dL (6.4-8.2); Sodium Level 132 mmol/L (136-145)
[2022-09-12 14:07] LABS: Vitamin B1, Thiamine 133.5 nmol/L (66.5-200.0)
[2022-09-13 11:13] LABS: KEPPRA (LEVETIRACETAM) 6.8 ug/mL (10.0-40.0)
== END | disposition home or self-care (01) ==
PROVIDERS: PCP Family Medicine; Referring Provider Psychiatry & Neurology Neurology; Visit Provider Psychiatry & Neurology Neurology
DX: G40.909 Epilepsy, unspecified, not intractable, without status epilepticus (principal); R73.9 Hyperglycemia, unspecified
CPT/HCPCS: 36415; 80053; 80177; 82140; 83036; 84425

== ENCOUNTER → 2022-10-22 | Outpatient (CLI) | payer MEDICARE, SELFPAY | END | disposition home or self-care (01) | LOC: PSN 08:22 | PROVIDERS: PCP Family Medicine; Referring Provider Psychiatry & Neurology Neurology; Visit Provider Psychiatry & Neurology Neurology | DX: G40.909 Epilepsy, unspecified, not intractable, without status epilepticus (principal); I63.9 Cerebral infarction, unspecified | CPT/HCPCS: 95819 ==

== ENCOUNTER → 2022-11-17 | Outpatient (CLI) | payer MEDICARE, SELFPAY ==
[2022-11-17 13:04] LABS: ALB/GLOB Ratio 1.6 RATIO (0.9-2.4); AST(SGOT) 31 U/L (15-37); Alanine Aminotransfer ALT/SGPT 48 U/L (13-56); Albumin, Serum 4.1 g/dL (3.2-5.0); Alkaline Phosphatase 65 U/L (45-117); Anion Gap 4 (5-15); BUN 9 mg/dL (7-18); Calcium,Total 8.5 mg/dL (8.5-10.1); Chloride 97 mmol/L (98-107); Creatinine, Serum 0.45 mg/dL (0.55-1.02); EST Glomerular Filtration Rate 143 mL/min (>60); Est Glom Filt Rate - Afr Amer 173 mL/min (>60); Globulin 2.5 g/dL (2.2-4.2); Glucose 99 mg/dL (74-106); Potassium 3.9 mmol/L (3.5-5.1); Protein, Total 6.6 g/dL (6.4-8.2); Sodium Level 133 mmol/L (136-145); T4 Free Direct 1.19 ng/dL (0.76-1.46); Thyroid Stim Hormone (TSH) 1.41 uIU/mL (0.358-3.74)
[2022-11-19 09:08] LABS: Anti-Thyroglobulin AB < 1.0 IU/mL (0.0-0.9); Thyroid Peroxidase AB < 9 IU/mL (0-34); Thyroid Stim Immunoglob <0.10 IU/L (0.00-0.55)
== END | disposition home or self-care (01) ==
LOC: MTLAB 10:02
PROVIDERS: PCP Family Medicine; Referring Provider Family Medicine; Visit Provider Family Medicine
DX: G40.909 Epilepsy, unspecified, not intractable, without status epilepticus (principal); E03.9 Hypothyroidism, unspecified
CPT/HCPCS: 36415; 80053; 84432; 84439; 84443; 84445; 86376; 86800

== ENCOUNTER 2022-12-01 14:46 | Outpatient (CLI) | payer MEDICARE, SELFPAY ==
[2022-12-01 18:02] LABS: Urine Sodium 12 mmol/L (Not Establ.)
[2022-12-01 18:33] LABS: Osmolality, Urine 164 mOsm/KG
== END 2022-12-01 23:59 | disposition home or self-care (01) ==
LOC: MFPLAB 14:47
PROVIDERS: PCP Family Medicine; Visit Provider Family Medicine
DX: E87.1 Hypo-osmolality and hyponatremia (principal)
CPT/HCPCS: 36415; 83935; 84300

== ENCOUNTER → 2023-09-05 | Outpatient (CLI) | payer MEDICARE, SELFPAY ==
[2023-09-05 07:30] LABS: Absolute Lymphocyte Count 0.88 X10^3/uL (0.83-4.51); Absolute Neutrophil Count 1.5 X10^3/uL (2.0-7.7); Basophil# 0.05 X10^3/uL; Basophil% 1.7 % (0-1); Eosinophil# 0.09 X10^3/uL; Hematocrit 41.7 % (37-47); Hemoglobin 13.8 g/dL (12.0-15.0); Lymphocyte # 0.88 X10^3/ul (0.83-4.51); Lymphocyte % 29.7 % (19-41); Mean Corp Hgb Conc 33.1 g/dL (32-36); Mean Corpuscular Hgb 31.8 pg (27.0-32.0); Mean Corpuscular Volume 96.1 fL (81-99); Mean Platelet Vol. 10.3 fl (6.2-12.0); Monocyte# 0.45 X10^3/uL; Monocyte% 15.2 % (0-10); NRBC Flagged by Analyzer 0 % (0-5); Neutrophil # 1.48 X10^3/uL (2.7-7.7); Neutrophil % 50.1 % (47-70); Platelet Count 153 K/mm3 (150-450); RBC Distribution Width CV 12.4 % (11.6-14.6); RBC Distribution Width SD 44.1 fl (35.1-43.9); Red Blood Count 4.34 M/mm3 (4.2-5.4)
[2023-09-05 08:41] LABS: ALB/GLOB Ratio 1.7 RATIO (0.9-2.4); AST(SGOT) 43 U/L (15-37); Alanine Aminotransfer ALT/SGPT 53 U/L (13-56); Albumin, Serum 4.3 g/dL (3.2-5.0); Alkaline Phosphatase 79 U/L (45-117); Anion Gap 4 (5-15); BUN 13 mg/dL (7-18); BUN/Creat Ratio 22.4 RATIO (10-20); Calcium,Total 8.6 mg/dL (8.5-10.1); Chloride 100 mmol/L (98-107); Cholesterol 141 mg/dL (200); Creatinine, Serum 0.58 mg/dL (0.55-1.02); EST Glomerular Filtration Rate 106 mL/min (>60); Est Glom Filt Rate - Afr Amer 129 mL/min (>60); Globulin 2.6 g/dL (2.2-4.2); Glucose 99 mg/dL (74-106); High Density Lipoprotein 85 mg/dL; Potassium 4.1 mmol/L (3.5-5.1); Protein, Total 6.9 g/dL (6.4-8.2); Sodium Level 135 mmol/L (136-145); Triglycerides 52 mg/dL; Very Low Density Lipoprotein 10 mg/dL (5-40)
[2023-09-05 09:06] LABS: Vitamin D,25 Hydroxy 39.6 ng/mL
== END | disposition home or self-care (01) ==
PROVIDERS: PCP Family Medicine; Referring Provider Family Medicine; Visit Provider Family Medicine
DX: F41.1 Generalized anxiety disorder (principal); E03.9 Hypothyroidism, unspecified; E55.9 Vitamin D deficiency, unspecified; Z86.73 Personal history of transient ischemic attack (TIA), and cerebral infarction without residual deficits
CPT/HCPCS: 36415; 80053; 80061; 82306; 84443; 85025

== ENCOUNTER → 2024-09-25 | Outpatient (CLI) | payer MEDICARE, SELFPAY ==
[2024-09-25 12:47] LABS: Absolute Lymphocyte Count 0.64 X10^3/uL (0.83-4.51); Absolute Neutrophil Count 3.4 X10^3/uL (2.0-7.7); Basophil# 0.04 X10^3/uL; Basophil% 0.8 % (0-1); Eosinophils% 2.1 % (0-5); Hematocrit 38.5 % (37-47); Hemoglobin 13.1 g/dL (12.0-15.0); Lymphocyte # 0.64 X10^3/ul (0.83-4.51); Lymphocyte % 13.3 % (19-41); Mean Corpuscular Hgb 32.3 pg (27.0-32.0); Mean Corpuscular Volume 95.1 fL (81-99); Mean Platelet Vol. 10.3 fl (6.2-12.0); Monocyte# 0.65 X10^3/uL; Monocyte% 13.5 % (0-10); NRBC Flagged by Analyzer 0 % (0-5); Neutrophil # 3.38 X10^3/uL (2.7-7.7); Neutrophil % 70.1 % (47-70); Platelet Count 190 K/mm3 (150-450); RBC Distribution Width SD 41.8 fl (35.1-43.9); Red Blood Count 4.05 M/mm3 (4.2-5.4); White Blood Count 4.8 K/mm3 (4.4-11.0)
[2024-09-25 13:26] LABS: ALB/GLOB Ratio 2.2 RATIO (0.9-2.4); AST(SGOT) 50 U/L (<=31); Alanine Aminotransfer ALT/SGPT 45 U/L (<=34); Albumin, Serum 4.4 g/dL (3.4-4.8); Alkaline Phosphatase 102 U/L (35-104); Anion Gap 9 (5-15); BUN 12 mg/dL (4-19); BUN/Creat Ratio 26.5 RATIO (10-20); Calcium,Total 9.3 mg/dL (7.6-11.0); Carbon Dioxide 30.4 mmol/L (21.0-32.0); Chloride 90 mmol/L (98-108); Creatinine, Serum 0.43 mg/dL (0.70-1.20); EST Glomerular Filtration Rate 98 (>60); Glucose 75 mg/dL (70-99); Protein, Total 6.4 g/dL (5.9-8.4); Sodium Level 130 mmol/L (133-145); Total Bilirubin 0.51 mg/dL (0.00-1.30)
[2024-09-25 13:59] LABS: Cholesterol 135 mg/dL (<=200); High Density Lipoprotein 81 mg/dL; Low Density Lipoprotein Calc. 46 mg/dL; Triglycerides 42 mg/dL; Very Low Density Lipoprotein 8 mg/dL (5-40); cholesterol:hdl ratio screen 1.67
== END | disposition home or self-care (01) ==
LOC: LAB 11:21
PROVIDERS: PCP Family Medicine; Referring Provider Dermatology MOHS-Micrographic Surgery; Visit Provider Dermatology MOHS-Micrographic Surgery
DX: C44.792 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, including hip (principal)
CPT/HCPCS: 36415; 80053; 80061; 85025

== ENCOUNTER 2024-10-25 20:09 | Inpatient (IN) | payer MEDICARE, SELFPAY ==
[2024-10-25] VITALS (18 sets, daily range): BP systolic 119–150; BP diastolic 53–68; PULSE 65–80; RESP 11–20; TEMP 36.1–36.6; O2SAT 94–100; BMI 18.6; BMI 15.6
--- NOTE | 2024-10-25 20:31 | EKG12_ITS ---
Test Reason : DYSRHYTHMIA Blood Pressure : */* mmHG Vent. Rate : 65 BPM Atrial Rate : 65 BPM P-R Int : 200 ms QRS Dur : 90 ms QT Int : 410 ms P-R-T Axes : 79 -52 78 degrees QTcB Int : 426 ms Normal sinus rhythm Left anterior fascicular block Abnormal ECG Confirmed by FIDEL LEMUS, KATE ([id number]), editorial director MAHESH MCCORMACK ([id number]) on 10/30/2024 6:53:49 AM Referred By: Terrance Oswald Confirmed By: KATE PARRA MD
--- NOTE | 2024-10-25 20:35 | EX.ED.DYSGE1 ---
[facility] <Dr. Terrance Oswald MD - Last Filed: 10/25/24 22:36> History of Present Illness Chief Complaint: Syncope Detail of Chief Complaint: Syncopal episode while eating at the [employer] Informant: patient, spouse/S.O. and EMS Onset/Context/Timing Onset: Today and Hours Context: Sudden Onset Timing: Intermittent Quality: Syncopal episode Location: At a local restaurant Current Severity: Gone Maximum Severity: Passed out Worsened by: Patient states she had to have a bowel movement and felt some mild discomfo Relieved by: Time Associated Symptoms Associated Symptoms: Per patient nausea and lightheadedness. Per diaphoresis and pallor Narrative Narrative: Patient is an 79-year-old woman. She has history of hypercholesterolemia, squamous cell carcinoma, depression who arrived by ambulance because of syncopal episode. Today she had an appointment with dermatology and had mole surgery left calf size of 2 sugar cubes per patient. Dressing was not removed. 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 She went home and napped. She then went with her to [place]. Apparently she felt some indigestion and abdominal discomfort that was followed by nausea and urge to defecate. Patient per passed out. She was pale and diaphoretic. She had a bowel movement here. She states her abdominal discomfort is resolved. She states she feels back to normal and would like to go home. Patient has no history of coronary artery disease. She appears pale. According to daughter she looks paler than normal. She has no history of iron deficiency anemia. There is no history of peptic ulcer disease. She does have history of alcohol use. Prior similar symptoms: No Recent Illness/Hospitalization: Yes [facility] <Dr. Terrance Oswald MD - Last Filed: 10/25/24 22:36> [facility] Medical History Fatigue Acute ischemic stroke Epilepsy Alcohol abuse Anxiety Home Medications ?Medication ?Instructions ?Recorded ?Last Taken ?Type aspirin 81 mg chewable tablet 81 mg PO BREAKFAST [facility] 08/23/22 Unknown History levothyroxine 50 mcg tablet 50 mcg PO DAILY@0600 30 days #30 08/26/22 Unknown Rx tabs rosuvastatin 5 mg tablet 5 mg PO DAILY #90 tabs 01/18/23 Unknown Rx buspirone 15 mg tablet 15 mg PO TID 10/25/24 Unknown History gabapentin 300 mg capsule 300 mg PO TID 10/25/24 Unknown History Allergy/AdvReac Type Severity Reaction Status Date / Time Milk Containing Products Allergy Diarrhea Verified 10/25/24 20:17 (Dairy) (Milk Containing Products) Surgical History Hx of hysterectomy Social History household members: spouse Smoking Status: Former smoker alcohol intake: former year quit: 2022 details: Recently quit drinking alcohol 2-3 weeks ago. substance use type: does not use what type of physical activity do you participate in: walking frequency: daily colleen/rastafari: [employer] seatbelt use: always ROS <Dr. Terrance Oswald MD - Last Filed: 10/25/24 22:36> ROS ED Constitutional Constitutional ED: Denies chills, fever(s), subjective, sweats or weight loss Eyes Eyes: Reports other Details: Patient states her vision was tunneled and became black. ENT ENT ED: Denies ear pain, rhinorrhea or sore throat Cardiovascular Cardiovascular: Denies chest pain, orthopnea, palpitations, paroxysmal nocturnal dyspnea or racing heartbeat Respiratory/Chest Respiratory/Chest: Denies cough, dyspnea, dyspnea on exertion, orthopnea or paroxysmal nocturnal dyspnea Gastrointestinal Gastrointestinal: Reports abdominal pain and nausea; Denies constipation, diarrhea, melena or vomiting Genitourinary Genitourinary ED: Denies dysuria, hematuria or urinary frequency Musculoskeletal Musculoskeletal: Denies arthralgias or myalgias Integumentary Denies rash Neurologic Neurologic: Denies headache(s) or paresthesias Hematologic/Lymphatic Hematologic/Lymphatic: Reports systems reviewed and no addt'l complaints, except as documented EXAM <Dr. Terrance Oswald MD - Last Filed: 10/25/24 22:36> Physical Exam Const Vital Signs: 10/25/24 20:13 10/25/24 20:16 10/25/24 20:24 Temperature 96.9 F L Temperature Source Temporal Pulse Rate 72 66 Pulse Rate [Lying] Pulse Rate [Sitting (for 1 minute prior to obtaining)] Pulse Rate [Standing (for 1 minute prior to obtaining)] Respiratory Rate 18 16 Respiratory Pattern Normal Blood Pressure 136/60 H Blood Pressure [Lying] Blood Pressure [Sitting (for 1 minute prior to obtaining)] Blood Pressure [Standing (for 1 minute prior to obtaining)] Blood Pressure Mean 85 Blood Pressure Mean [Lying] Blood Pressure Mean [Sitting (for 1 minute prior to obtaining)] Blood Pressure Mean [Standing (for 1 minute prior to obtaining)] Pulse Ox 100 100 Oxygen Delivery Method Room Air 10/25/24 20:30 10/25/24 20:36 10/25/24 20:36 Temperature Temperature Source Pulse Rate 68 65 Pulse Rate [Lying] 65 Pulse Rate [Sitting (for 1 minute prior to obtaining)] 66 Pulse Rate [Standing (for 1 minute prior to obtaining)] 74 Respiratory Rate 14 14 Respiratory Pattern Blood Pressure 135/55 H 119/56 L Blood Pressure [Lying] 120/54 L Blood Pressure [Sitting (for 1 minute prior to obtaining)] 119/56 L Blood Pressure [Standing (for 1 minute prior to obtaining)] 130/54 H Blood Pressure Mean 77 74 Blood Pressure Mean [Lying] 76 Blood Pressure Mean [Sitting (for 1 minute prior to obtaining)] 77 Blood Pressure Mean [Standing (for 1 minute prior to obtaining)] 79 Pulse Ox 100 100 Oxygen Delivery Method 10/25/24 20:37 10/25/24 20:38 10/25/24 20:45 Temperature Temperature Source Pulse Rate 66 73 69 Pulse Rate [Lying] Pulse Rate [Sitting (for 1 minute prior to obtaining)] Pulse Rate [Standing (for 1 minute prior to obtaining)] Respiratory Rate 15 20 H 14 Respiratory Pattern Blood Pressure 120/54 L 130/54 H 134/61 H Blood Pressure [Lying] Blood Pressure [Sitting (for 1 minute prior to obtaining)] Blood Pressure [Standing (for 1 minute prior to obtaining)] Blood Pressure Mean 73 76 78 Blood Pressure Mean [Lying] Blood Pressure Mean [Sitting (for 1 minute prior to obtaining)] Blood Pressure Mean [Standing (for 1 minute prior to obtaining)] Pulse Ox 100 98 100 Oxygen Delivery Method 10/25/24 21:00 10/25/24 21:15 10/25/24 21:30 Temperature Temperature Source Pulse Rate 68 73 73 Pulse Rate [Lying] Pulse Rate [Sitting (for 1 minute prior to obtaining)] Pulse Rate [Standing (for 1 minute prior to obtaining)] Respiratory Rate 14 12 12 Respiratory Pattern Blood Pressure 127/53 H 128/60 H 140/59 H Blood Pressure [Lying] Blood Pressure [Sitting (for 1 minute prior to obtaining)] Blood Pressure [Standing (for 1 minute prior to obtaining)] Blood Pressure Mean 74 79 82 Blood Pressure Mean [Lying] Blood Pressure Mean [Sitting (for 1 minute prior to obtaining)] Blood Pressure Mean [Standing (for 1 minute prior to obtaining)] Pulse Ox 100 100 Oxygen Delivery Method 10/25/24 21:39 10/25/24 21:45 10/25/24 22:00 Temperature 97.9 F Temperature Source Pulse Rate 75 80 76 Pulse Rate [Lying] Pulse Rate [Sitting (for 1 minute prior to obtaining)] Pulse Rate [Standing (for 1 minute prior to obtaining)] Respiratory Rate 16 16 11 L Respiratory Pattern Blood Pressure 140/59 H 140/66 H 138/59 H Blood Pressure [Lying] Blood Pressure [Sitting (for 1 minute prior to obtaining)] Blood Pressure [Standing (for 1 minute prior to obtaining)] Blood Pressure Mean 86 88 81 Blood Pressure Mean [Lying] Blood Pressure Mean [Sitting (for 1 minute prior to obtaining)] Blood Pressure Mean [Standing (for 1 minute prior to obtaining)] Pulse Ox 100 100 Oxygen Delivery Method Positive well developed; Negative for well nourished Constitutional Narrative: Patient is very thin. She states she has always been thin. She weighs 46 kg. General Appearance ED: well developed, NAD and pallor; Negative for cyanotic or diaphoretic HEENT Reports moist mucous membranes HEENT Narrative: Head is atraumatic normocephalic. Ears normal. Nares patent. Posterior pharynx is normal. Uvula is midline. No deviation with tongue with protrusion. Eyes PERRL and EOMs intact bilaterally General Eye ED: Yes pale conjunctiva; Negative for scleral icterus Neck no lymphadenopathy, supple and no JVD Chest Wall inspection of chest normal and palpation of chest normal Resp normal respiratory effort and clear to auscultation bilaterally Cardio regular rate, regular rhythm, S1 normal heart sound, S2 normal heart sound and no murmurs GI non-tender and no masses; Negative for non-distended or hepatosplenomegaly GI Narrative: Abdomen is tympanitic. Bowel sounds are increased. 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 There is no blood noted on the dressing. Neuro oriented x3 and CN's II-XII intact bilaterally Sensorium / Orientation: alert Psych mental status grossly normal Skin Skin Narrative: Wound due to Mohs surgery General Skin Exam: pallor; Negative for jaundice <Dr. Mikel Alanis, DO - Last Filed: 10/25/24 22:48> Physical Exam Const Vital Signs: 10/25/24 20:13 10/25/24 20:16 10/25/24 20:24 Temperature 96.9 F L Temperature Source Temporal Pulse Rate 72 66 Pulse Rate [Lying] Pulse Rate [Sitting (for 1 minute prior to obtaining)] Pulse Rate [Standing (for 1 minute prior to obtaining)] Respiratory Rate 18 16 Respiratory Pattern Normal Blood Pressure 136/60 H Blood Pressure [Lying] Blood Pressure [Sitting (for 1 minute prior to obtaining)] Blood Pressure [Standing (for 1 minute prior to obtaining)] Blood Pressure Mean 85 Blood Pressure Mean [Lying] Blood Pressure Mean [Sitting (for 1 minute prior to obtaining)] Blood Pressure Mean [Standing (for 1 minute prior to obtaining)] Pulse Ox 100 100 Oxygen Delivery Method Room Air 10/25/24 20:30 10/25/24 20:36 10/25/24 20:36 Temperature Temperature Source Pulse Rate 68 65 Pulse Rate [Lying] 65 Pulse Rate [Sitting (for 1 minute prior to obtaining)] 66 Pulse Rate [Standing (for 1 minute prior to obtaining)] 74 Respiratory Rate 14 14 Respiratory Pattern Blood Pressure 135/55 H 119/56 L Blood Pressure [Lying] 120/54 L Blood Pressure [Sitting (for 1 minute prior to obtaining)] 119/56 L Blood Pressure [Standing (for 1 minute prior to obtaining)] 130/54 H Blood Pressure Mean 77 74 Blood Pressure Mean [Lying] 76 Blood Pressure Mean [Sitting (for 1 minute prior to obtaining)] 77 Blood Pressure Mean [Standing (for 1 minute prior to obtaining)] 79 Pulse Ox 100 100 Oxygen Delivery Method 10/25/24 20:37 10/25/24 20:38 10/25/24 20:45 Temperature Temperature Source Pulse Rate 66 73 69 Pulse Rate [Lying] Pulse Rate [Sitting (for 1 minute prior to obtaining)] Pulse Rate [Standing (for 1 minute prior to obtaining)] Respiratory Rate 15 20 H 14 Respiratory Pattern Blood Pressure 120/54 L 130/54 H 134/61 H Blood Pressure [Lying] Blood Pressure [Sitting (for 1 minute prior to obtaining)] Blood Pressure [Standing (for 1 minute prior to obtaining)] Blood Pressure Mean 73 76 78 Blood Pressure Mean [Lying] Blood Pressure Mean [Sitting (for 1 minute prior to obtaining)] Blood Pressure Mean [Standing (for 1 minute prior to obtaining)] Pulse Ox 100 98 100 Oxygen Delivery Method 10/25/24 21:00 10/25/24 21:15 10/25/24 21:30 Temperature Temperature Source Pulse Rate 68 73 73 Pulse Rate [Lying] Pulse Rate [Sitting (for 1 minute prior to obtaining)] Pulse Rate [Standing (for 1 minute prior to obtaining)] Respiratory Rate 14 12 12 Respiratory Pattern Blood Pressure 127/53 H 128/60 H 140/59 H Blood Pressure [Lying] Blood Pressure [Sitting (for 1 minute prior to obtaining)] Blood Pressure [Standing (for 1 minute prior to obtaining)] Blood Pressure Mean 74 79 82 Blood Pressure Mean [Lying] Blood Pressure Mean [Sitting (for 1 minute prior to obtaining)] Blood Pressure Mean [Standing (for 1 minute prior to obtaining)] Pulse Ox 100 100 Oxygen Delivery Method 10/25/24 21:39 10/25/24 21:45 10/25/24 22:00 Temperature 97.9 F Temperature Source Pulse Rate 75 80 76 Pulse Rate [Lying] Pulse Rate [Sitting (for 1 minute prior to obtaining)] Pulse Rate [Standing (for 1 minute prior to obtaining)] Respiratory Rate 16 16 11 L Respiratory Pattern Blood Pressure 140/59 H 140/66 H 138/59 H Blood Pressure [Lying] Blood Pressure [Sitting (for 1 minute prior to obtaining)] Blood Pressure [Standing (for 1 minute prior to obtaining)] Blood Pressure Mean 86 88 81 Blood Pressure Mean [Lying] Blood Pressure Mean [Sitting (for 1 minute prior to obtaining)] Blood Pressure Mean [Standing (for 1 minute prior to obtaining)] Pulse Ox 100 100 Oxygen Delivery Method [facility] <Dr. Terrance Oswald MD - Last Filed: 10/25/24 22:36> [facility] Narrative Medical decision making narrative: Suspect vasovagal syncopal episode. Patient appears very pale and has pale conjunctiva. Also concern for GI bleed. Will have nurse perform orthostatic vital signs. History is not consistent with cardiac ischemia. Will obtain EKG to see if there is any dysrhythmia or ischemic changes. CBC was obtained assess H&H and platelet count. Basic metabolic panel was obtained to assess BUN to creatinine ratio as well as renal function. I was informed at 2041 the patient orthostatics were positive. When she stood she passed out prior to nurse being able to obtain a blood pressure or heart rate. This raises concern for GI bleed especially since patient appears very pale. History & Record Review Additional record(s) reviewed:: Prior inpatient record (Patient hospitalized August 2022. Reviewed Dr. Kenna Chirinos's discharge note. She was admitted for acute encephalopathy and was diagnosed with a small left temporal stroke. 2D echo revealed an EF of 65%. EEG revealed focal tampering in her right temporal lobe with no evidence of seizure activity..), Prior outpatient record (Urgent care notes from July 2023 for skin tear without complication right hand. Seen by Dr. Fransisco Ford for fatigue and epilepsy in 2022. Se[address] Hooks in August 2022 due to alcohol related issues.), Prior ED visit and Prior labs Lab Data Attestation: I reviewed the patient's lab results. Lab results narrative: CBC is marked for an H&H of 9.7 and 20.4. There is an approximately 4 g drop from 1 month ago. BUN to creatinine ratio is approximately 70-1 which is consistent with a GI bleed. Since patient cannot stand without passing out will place a Flores because she says she urinates frequently and this would be for her benefit. Glucose is elevated 141 with a normal CO2 anion gap. Since patient has history of alcohol abuse PT/INR was added as well as PTT to determine if she has a coagulopathy and to assess her liver function. Patient does take a baby aspirin a day. She is on a baby aspirin a day because she had a prior stroke according to the and patient. Labs: Laboratory Results - last 24 hr 10/25/24 20:15 WBC 5.6 RBC 2.99 L Hgb 9.7 L Hct 28.4 L MCV 95.0 MCH 32.4 H MCHC 34.2 RDW Std Deviation 42.0 RDW Coeff of Bruna 12.1 Plt Count 144 L MPV 10.4 PT 14.4 INR 1.1 APTT 25.3 Sodium 126 L Potassium 4.1 Chloride 89 L Carbon Dioxide 26.5 Anion Gap 11 BUN 34 H Creatinine 0.48 L Estim Creat Clear Calc 40.22 L Est GFR (MDRD) Non-Af 95 BUN/Creatinine Ratio 71.4 H Glucose 141 H Calcium 8.3 Patient was typed and screened. Crossmatch was not ordered at this time. Since I have not heard back from the hospitalist the night physician was made aware. Patient requires full admission for upper GI bleed with orthostatic hypotension EKG Initial EKG: Attestation: I personally reviewed and interpreted this EKG as follows: Interpretation: Sinus Rhythm (Rate is 65. AR interval 200 ms. Cures duration 90 ms. QT duration 4 to 10 ms. [place] is to the left. There is evidence of a left anterior fascicular block.) <Dr. Mikel Alanis, DO - Last Filed: 10/25/24 22:48> [facility] Narrative Medical decision making narrative: Suspect vasovagal syncopal episode. Patient appears very pale and has pale conjunctiva. Also concern for GI bleed. Will have nurse perform orthostatic vital signs. History is not consistent with cardiac ischemia. Will obtain EKG to see if there is any dysrhythmia or ischemic changes. CBC was obtained assess H&H and platelet count. Basic metabolic panel was obtained to assess BUN to creatinine ratio as well as renal function. I was informed at 2041 the patient orthostatics were positive. When she stood she passed out prior to nurse being able to obtain a blood pressure or heart rate. This raises concern for GI bleed especially since patient appears very pale. 10:[address] Farnsworth called back discussion with him he will except the patient for admission for syncope in the setting of upper GI bleed. Patient notified is agreeable this plan all course concerns answered. Lab Data Labs: Laboratory Results - last 24 hr 10/25/24 20:15 WBC 5.6 RBC 2.99 L Hgb 9.7 L Hct 28.4 L MCV 95.0 MCH 32.4 H MCHC 34.2 RDW Std Deviation 42.0 RDW Coeff of Bruna 12.1 Plt Count 144 L MPV 10.4 PT 14.4 INR 1.1 APTT 25.3 Sodium 126 L Potassium 4.1 Chloride 89 L Carbon Dioxide 26.5 Anion Gap 11 BUN 34 H Creatinine 0.48 L Estim Creat Clear Calc 40.22 L Est GFR (MDRD) Non-Af 95 BUN/Creatinine Ratio 71.4 H Glucose 141 H Calcium 8.3 Discharge Plan Dx/Rx/DC Orders Clinical Impression: Acute gastrointestinal bleeding, Subclinical hypothyroidism, Alcohol abuse, Orthostatic hypotension, Syncope and collapse Disposition Disposition: Acute Care Hospital [facility]
[2024-10-25 20:43] LABS: Hematocrit 28.4 % (37-47); Hemoglobin 9.7 g/dL (12.0-15.0); Mean Corp Hgb Conc 34.2 g/dL (32-36); Mean Corpuscular Hgb 32.4 pg (27.0-32.0); Mean Platelet Vol. 10.4 fl (6.2-12.0); Platelet Count 144 K/mm3 (150-450); RBC Distribution Width CV 12.1 % (11.6-14.6); Red Blood Count 2.99 M/mm3 (4.2-5.4); White Blood Count 5.6 K/mm3 (4.4-11.0)
[2024-10-25 21:23] LABS: Anion Gap 11 (5-15); BUN 34 mg/dL (4-19); BUN/Creat Ratio 71.4 RATIO (10-20); Calcium,Total 8.3 mg/dL (7.6-11.0); Carbon Dioxide 26.5 mmol/L (21.0-32.0); Chloride 89 mmol/L (98-108); Creatinine, Serum 0.48 mg/dL (0.70-1.20); EST Glomerular Filtration Rate 95 (>60); Estimated Creatinine Clearance 40.22 ml/min (50-250); Glucose 141 mg/dL (70-99); Potassium 4.1 mmol/L (3.3-5.1); Sodium Level 126 mmol/L (133-145)
--- NOTE | 2024-10-25 21:48 | ED.RN ---
DR Goode REQUESTED A ZEE PLACED BECAUSE THE PT HAD A SYNCOPAL EPISODE WHEN SHE GOT UP.
[2024-10-25 22:01] LABS: International Normalized Ratio 1.1; Partial Thromboplast Time 25.3 Seconds (24.1-36.2); Prothrombin Time (Protime)PT. 14.4 SECONDS (11.7-14.9)
--- NOTE | 2024-10-25 22:45 | PCM.HP.STD ---
[facility] - General General Date of Admission: 10/25/24 Date of Service: 10/25/24 Chief Complaint: Syncope and Abdominal Pain with subsequent Melanotic Stool. HPI Narrative CHIOMA ABAD, is a 79 F with a past medical history of hyperlipidemia; on rosuvastatin, hypothyroidism; on levothyroxine, former tobacco abuse, history of ischemic CVA on baby aspirin daily, epilepsy; on gabapentin TID, orthostatic hypotension, depression with anxiety; on buspirone 3 times daily, history of hyponatremia, history of THOM, history of EtOH abuse; with patient claiming having quit drinking in 2022, history of hysterectomy, OA; with chronic debility and recently diagnosed squamous cell carcinoma; s/p Mohs surgery for excision 2 lesions on her Left calf earlier today who presents to [facility] ER complaining of syncope and abdominal pain with subsequent melanotic stool. Mrs. Abad reports her symptoms began just prior to arrival after she had a syncopal episode while eating at [employer]. She states her symptoms came on suddenly and she was witnessed to have completely passed out. She also admits to painful pressure sensation in her lower abdomen like she has to have a bowel movement with nausea and subsequent melanotic stool with patient's noting her to be pale and diaphoretic. She admits to a history of iron deficiency anemia but she denies a history of peptic ulcer disease, coronary artery disease or similar previous episodes. She also admits to her vision tunneling before she blacked out but she denies associated fever, chills, weight loss, runny nose, sore throat, ear pain, chest pain, palpitations, heart racing, lower extremity edema, shortness of breath, cough, dysuria, hematuria, urinary frequency, arthralgias, myalgias, headache or rash. In the ER she was diagnosed with UGIB suspected to be due to PUD likely due to Adverse Drug Reaction to unopposed daily BASA complicated by mild Thrombocytopenia of 144K with hemoglobin of 9.7 g/dL present on admission compounded by Hyponatremia of 126 mmol/L present on admission and she was then admitted to the PCU for ongoing care for stay that is expected to extend beyond 2 midnights. [facility] Medical History Fatigue Acute ischemic stroke Epilepsy Alcohol abuse Anxiety Home Medications ?Medication ?Instructions ?Recorded ?Last Taken ?Type aspirin 81 mg chewable tablet 81 mg PO BREAKFAST [facility] health 08/23/22 Unknown History levothyroxine 50 mcg tablet 50 mcg PO DAILY@0600 30 days #30 08/26/22 Unknown Rx tabs rosuvastatin 5 mg tablet 5 mg PO DAILY #90 tabs 01/18/23 Unknown Rx buspirone 15 mg tablet 15 mg PO TID 10/25/24 Unknown History gabapentin 300 mg capsule 300 mg PO TID 10/25/24 Unknown History Allergy/AdvReac Type Severity Reaction Status Date / Time Milk Containing Products Allergy Diarrhea Verified 10/25/24 20:17 (Dairy) (Milk Containing Products) Surgical History Hx of hysterectomy Social History household members: spouse Smoking Status: Former smoker alcohol intake: former year quit: 2022 details: Recently quit drinking alcohol 2-3 weeks ago. substance use type: does not use what type of physical activity do you participate in: walking frequency: daily colleen/buddhist: Taoism seatbelt use: always ROS ROS Narrative Review of Systems: Constitutional: Patient denies fever, chills or weight loss. Eyes: Patient admits to tunnel vision prior to blacking out. ENT: Patient denies runny nose, sore throat or ear pain. Resp: Patient denies shortness of breath or cough. CV: Patient admits to syncopal event but she denies chest pain, palpitations, heart racing or lower extremity edema. GI: Patient admits to pressure-like lower abdominal pain just prior to expressing melanotic stool with nausea. She denies vomiting or constipation. : Patient denies dysuria, hematuria urinary frequency. MSK: Patient denies arthralgias or myalgias. 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 Psych: Patient denies symptoms of uncontrolled depression or anxiety. Neuro: Patient denies headache, paresthesias or focal neurologic deficits. Allergy: Patient denies lip swelling, tongue swelling or urticaria. Hematology: Patient admits to melanotic stools as per HPI. Endocrinology: Patient denies polyuria, polydipsia, polyphagia or heat/cold intolerance. 14 point ROS otherwise negative save for positives noted above in HPI. Vital Signs Vital Signs Vital Signs: 10/25/24 20:13 10/25/24 20:16 10/25/24 20:24 Temperature 96.9 F L Temperature Source Temporal Pulse Rate 72 66 Pulse Rate [Lying] Pulse Rate [Sitting (for 1 minute prior to obtaining)] Pulse Rate [Standing (for 1 minute prior to obtaining)] Respiratory Rate 18 16 Respiratory Pattern Normal Blood Pressure 136/60 H Blood Pressure [Lying] Blood Pressure [Sitting (for 1 minute prior to obtaining)] Blood Pressure [Standing (for 1 minute prior to obtaining)] Blood Pressure Mean 85 Blood Pressure Mean [Lying] Blood Pressure Mean [Sitting (for 1 minute prior to obtaining)] Blood Pressure Mean [Standing (for 1 minute prior to obtaining)] Pulse Ox 100 100 Oxygen Delivery Method Room Air 10/25/24 20:30 10/25/24 20:36 10/25/24 20:36 Temperature Temperature Source Pulse Rate 68 65 Pulse Rate [Lying] 65 Pulse Rate [Sitting (for 1 minute prior to obtaining)] 66 Pulse Rate [Standing (for 1 minute prior to obtaining)] 74 Respiratory Rate 14 14 Respiratory Pattern Blood Pressure 135/55 H 119/56 L Blood Pressure [Lying] 120/54 L Blood Pressure [Sitting (for 1 minute prior to obtaining)] 119/56 L Blood Pressure [Standing (for 1 minute prior to obtaining)] 130/54 H Blood Pressure Mean 77 74 Blood Pressure Mean [Lying] 76 Blood Pressure Mean [Sitting (for 1 minute prior to obtaining)] 77 Blood Pressure Mean [Standing (for 1 minute prior to obtaining)] 79 Pulse Ox 100 100 Oxygen Delivery Method 10/25/24 20:37 10/25/24 20:38 10/25/24 20:45 Temperature Temperature Source Pulse Rate 66 73 69 Pulse Rate [Lying] Pulse Rate [Sitting (for 1 minute prior to obtaining)] Pulse Rate [Standing (for 1 minute prior to obtaining)] Respiratory Rate 15 20 H 14 Respiratory Pattern Blood Pressure 120/54 L 130/54 H 134/61 H Blood Pressure [Lying] Blood Pressure [Sitting (for 1 minute prior to obtaining)] Blood Pressure [Standing (for 1 minute prior to obtaining)] Blood Pressure Mean 73 76 78 Blood Pressure Mean [Lying] Blood Pressure Mean [Sitting (for 1 minute prior to obtaining)] Blood Pressure Mean [Standing (for 1 minute prior to obtaining)] Pulse Ox 100 98 100 Oxygen Delivery Method 10/25/24 21:00 10/25/24 21:15 10/25/24 21:30 Temperature Temperature Source Pulse Rate 68 73 73 Pulse Rate [Lying] Pulse Rate [Sitting (for 1 minute prior to obtaining)] Pulse Rate [Standing (for 1 minute prior to obtaining)] Respiratory Rate 14 12 12 Respiratory Pattern Blood Pressure 127/53 H 128/60 H 140/59 H Blood Pressure [Lying] Blood Pressure [Sitting (for 1 minute prior to obtaining)] Blood Pressure [Standing (for 1 minute prior to obtaining)] Blood Pressure Mean 74 79 82 Blood Pressure Mean [Lying] Blood Pressure Mean [Sitting (for 1 minute prior to obtaining)] Blood Pressure Mean [Standing (for 1 minute prior to obtaining)] Pulse Ox 100 100 Oxygen Delivery Method 10/25/24 21:39 10/25/24 21:45 10/25/24 22:00 Temperature 97.9 F Temperature Source Pulse Rate 75 80 76 Pulse Rate [Lying] Pulse Rate [Sitting (for 1 minute prior to obtaining)] Pulse Rate [Standing (for 1 minute prior to obtaining)] Respiratory Rate 16 16 11 L Respiratory Pattern Blood Pressure 140/59 H 140/66 H 138/59 H Blood Pressure [Lying] Blood Pressure [Sitting (for 1 minute prior to obtaining)] Blood Pressure [Standing (for 1 minute prior to obtaining)] Blood Pressure Mean 86 88 81 Blood Pressure Mean [Lying] Blood Pressure Mean [Sitting (for 1 minute prior to obtaining)] Blood Pressure Mean [Standing (for 1 minute prior to obtaining)] Pulse Ox 100 100 Oxygen Delivery Method Weight Weight: 101 lb 13.657 oz Body Mass Index (BMI) 18.6 Physical Exam Const alert, oriented x3, no apparent distress, average body habitus and healthy appearing General Appearance: cooperative HEENT normocephalic, head/scalp atraumatic, hearing grossly normal bilaterally and moist oral mucous membranes Eyes PERRL, EOMs intact bilaterally and conjunctivae normal Neck no lymphadenopathy, supple and no JVD Resp normal respiratory effort, no retractions, no use of accessory muscles and clear to auscultation bilaterally Cardio regular rate and regular rhythm GI soft to palpation and non-tender GI Narrative: Mild abdominal distention with increased bowel sounds noted. Auscultation: hyperactive bowel sounds Extremity Extremity Narrative: Patient still has bandages in place from excision of her two SCC lesions. Skin Skin Narrative: Patient has pallor but no evidence of rash, abscess, wounds or jaundice. Neuro oriented x3, CN's II-XII intact bilaterally, moves all extremities and no focal motor deficits Sensorium / Orientation: awake, alert, oriented to person, oriented to place and oriented to time Speech: speech normal Psych affect normal Results Medical Records Data Attestation: I reviewed the patient's medical records Lab / Micro Data Attestation: I reviewed the patient's lab results. 10/25/24 20:15 10/25/24 20:15 Labs: Laboratory Results - last 24 hr 10/25/24 20:15: WBC 5.6, RBC 2.99 L, Hgb 9.7 L, Hct 28.4 L, MCV 95.0, MCH 32.4 H, MCHC 34.2, RDW Std Deviation 42.0, RDW Coeff of Bruna 12.1, Plt Count 144 L, MPV 10.4, PT 14.4, INR 1.1, APTT 25.3, Sodium 126 L, Potassium 4.1, Chloride 89 L, Carbon Dioxide 26.5, Anion Gap 11, BUN 34 H, Creatinine 0.48 L, Estim Creat Clear Calc 40.22 L, Est GFR (MDRD) Non-Af 95, BUN/Creatinine Ratio 71.4 H, Glucose 141 H, Calcium 8.3 Micro: Microbiology 10/25/24 20:49 Stool Stool Occult Blood (FROILAN) - Final Occult Blood Positive Assessment & Plan Assessment/Plan (1) Upper GI bleed: (2) Melena: (3) Thrombocytopenia: (4) Iron deficiency anemia: (5) Adverse drug reaction: (6) Syncope and collapse: (7) Orthostatic hypotension: (8) Hyponatremia: PLAN: Plan 1. UGIB with Melanotic Stool suspected to be due to PUD with mild Thrombocytopenia of 144K with hemoglobin of 9.7 g/dL present on admission in the setting of known chronic THOM with associated Nausea and pressure-like Abdominal Pain - Admit to PCU. Keep strict NPO. Start continuous pantoprazole IV infusion. Type & Screen blood and transfuse for hemoglobin less than 7 g/dL. Give ondansetron IV as needed for nausea vomiting. Give promethazine IM as needed for breakthrough nausea. Give morphine IV for severe (level 6-10/10) pain. Finally, we will consult gastroenterology to see this patient on rounds in the a.m. for further recommendations regarding EGD this admission with help appreciated in advance. 2. Adverse Drug Reaction to unopposed daily BASA likely causing #1 - Hold BASA and avoid other potential GI toxic agents until further notice. 3. Syncopal event suspected to be due to #1 & #2 in the setting of previously known Orthostatic Hypotension - Check echocardiogram to evaluate LVEF. Check carotid Doppler to evaluate for stenosis. Serialize troponin. 4. Hyponatremia of 126 mmol/L present on admission complicating #1 - #3 in the setting of mild chronic hyponatremia with baseline levels from 130 mmol/L-135 mmol/L since 2022 - Give NS IVF and recheck level in AM to confirm improvement. Check urine and serum osmolality. 5. Recently diagnosed squamous cell carcinoma; s/p Mohs surgery for excision 2 lesions on her Left calf earlier today adding to the medical complexity of #1 - #4 - Noted. 6. History of ischemic CVA on baby aspirin daily - Patient will be instructed to avoid aspirin and NSAIDs as outlined in #2. 7. History of EtOH abuse; with patient claiming having quit drinking in 2022 - Patient may also have esophageal varices as a potential source of her bleeding with EGD pending for #1 8. Hyperlipidemia; on rosuvastatin - Hold statin until patient is cleared for oral intake by gastroenterology. 9. Hypothyroidism; on levothyroxine - Restart levothyroxine when patient is cleared for oral intake. Check TSH. 10. Former tobacco abuse - Noted. 11. Epilepsy; on gabapentin TID - Hold oral gabapentin at this time due to #1. Give lorazepam IV as needed for breakthrough seizure activity. If patient is requiring extended period of being n.p.o. we will start IV levetiracetam. 12. Depression with anxiety; on buspirone 3 times daily - Restart this agent when patient is cleared for oral intake. 13. History of hysterectomy - Noted with a second completeness. 14. OA; with chronic debility - Noted. PT/OT and Case Management to consult and treat on rounds in the a.m. further recommendations with help appreciated in advance. 15. DVT prophylaxis - SCD's only in light of #1. Total time: Approximately (but not less than) 75 minutes. Charges/Coding Visit Charges Inpatient E&M: 89586 Init Hosp L3
--- NOTE | 2024-10-25 23:47 | ECHOD_ITS ---
Reason For Study Reason For Study: SYNCOPE/NEAR SYNCOPE Procedure This was a 2D Doppler, Color Flow transthoracic echocardiogram. The study was technically difficult. Due to body habitus. Exam performed portable in patient room. Left Ventricle Normal LV size. The estimated ejection fraction is 65 %. No evidence for diastolic dysfunction. No regional wall motion abnormalities noted. Right Ventricle Normal RV size. Normal systolic function. Atria There is mild biatrial dilatation. No doppler evidence for ASD. Mitral Valve There is moderate mitral annular calcification. There is no mitral valve stenosis. No mitral valve insufficiency. Tricuspid Valve There is no tricuspid stenosis. Trivial tricuspid valve insufficiency. Pulmonary artery systolic pressure is 40 mmHg. Aortic Valve Trisinus/trileaflet aortic valve. There is no aortic stenosis. No aortic valve insufficiency. Pulmonic Valve There is no pulmonic valvular stenosis. No pulmonic valve insufficiency. Great Vessels Normal sized aortic root. Pericardium/Pleural No pericardial effusion. MMode/2D Measurements & Calculations LVIDd: 3.9 cm IVSd: 1.1 cm Ao root diam: 3.8 cm LVIDs: 2.3 cm LVPWd: 1.1 cm RVDd: 4.0 cm FS: 42.3 % LVAd ap4: 19.3 cm2 LVAd ap2: 15.2 cm2 SV(MOD-sp4): 31.1 ml LVLd ap4: 6.1 cm LVLd ap2: 5.6 cm SI(MOD-sp4): 21.7 ml/m2 EDV(MOD-sp4): 50.9 ml EDV(MOD-sp2): 33.7 ml EDV(sp4-el): 51.6 ml EDV(sp2-el): 34.8 ml LVAs ap4: 10.6 cm2 LVAs ap2: 7.6 cm2 LVLs ap4: 5.0 cm LVLs ap2: 4.6 cm ESV(MOD-sp4): 19.8 ml ESV(MOD-sp2): 11.6 ml ESV(sp4-el): 19.2 ml ESV(sp2-el): 10.7 ml EF(MOD-sp4): 61.1 % EF(MOD-sp2): 65.7 % EF(sp4-el): 62.7 % SV(MOD-sp2): 22.2 ml SV(sp4-el): 32.4 ml LA dimension(2D): 3.9 cm SI(MOD-sp2): 15.5 ml/m2 TAPSE: 3.1 cm Time Measurements MV dec time: 0.20 sec Doppler Measurements & Calculations MV E max mahad: 92.7 cm/sec Lat Peak E' Mahad: 8.4 cm/sec Med Peak E' Mahad: 9.3 cm/sec MV A max mahad: 144.7 cm/sec E/E' lat: 11.1 E/E' med: 10.0 MV E/A: 0.64 MV V2 max: 162.3 cm/sec MV P1/2t max mahad: 117.0 cm/sec Ao V2 max: 123.1 cm/sec MV max P.5 mmHg MV P1/2t: 59.8 msec Ao max P.1 mmHg MV V2 mean: 95.0 cm/sec MV dec slope: 573.5 cm/sec2 Ao V2 mean: 89.6 cm/sec MV mean P.9 mmHg Ao mean P.5 mmHg MV V2 VTI: 25.7 cm MVA(P1/2t): 3.7 cm2 Ao V2 VTI: 27.4 cm AV (velocity ratio): 0.81 LV V1 max: 94.7 cm/sec PA V2 max: 99.1 cm/sec TR max mahad: 288.3 cm/sec LV V1 max P.6 mmHg PA V2 mean: 68.2 cm/sec TR max P.2 mmHg LV V1 mean P.3 mmHg LV V1 mean: 73.0 cm/sec LV V1 VTI: 22.1 cm ECHO/Echo Complete Interpretation Summary The estimated ejection fraction is 65 %. No evidence for diastolic dysfunction. There is mild biatrial dilatation. Ordering Physician: Pastro Hernandez Referring Physician: Jamal Johns Performed By: Sandra Pinto, DAVID, RVT
[2024-10-25] MEDS: 0.9% Normal Saline (1000mL) 1,000 ML 70 ML IV (23:52)
[2024-10-26] VITALS (19 sets, daily range): BP systolic 97–168; BP diastolic 42–99; PULSE 69–89; RESP 14–20; TEMP 36.1–37.3; O2SAT 92–100; BMI 15.6
[2024-10-26 00:17] LABS: Bacteria 0 SEEN /hpf (None Seen); Mucous, Urine 0 SEEN /hpf (<or=2+)
[2024-10-26] MEDS: DiphenhydrAMINE 50 MG/ML Syringe 12.5 MG IV ×2 (00:49→21:33)
[2024-10-26] MEDS: 0.9% Saline Lock 10 ML Syringe IV ×2 (00:51→21:37)
[2024-10-26] MEDS: Pantoprazole Sodium 80 MG in 0.9% Normal Saline (100mL Bag) 80 ML 10 MG CONT INF ×3 (00:52→21:34)
[2024-10-26 01:14] LABS: Magnesium 1.9 mg/dL (1.5-2.2); Vitamin B12 532 pg/mL (180-914)
[2024-10-26 01:31] LABS: Color, Urine Straw (Yellow); Glucose, Dipstick Normal (Normal); Ketone-Dipstick Negative (Negative); Leukocyte Esterase-Dipstick Negative /ul (Negative); Nitrite-Dipstick Negative (Negative); Occult Blood-Urine Negative /ul (Negative); Protein-Dipstick Negative (Negative); Urine Bilirubin Dipstick Negative (Negative); Urine Clarity Clear (Clear); Urine Urobilinogen Normal (Normal)
[2024-10-26 03:08] LABS: Red Blood Cells-Urine 0-5 SEEN /hpf (0-5); Squamous Epithelial Cells - UA 0-5 SEEN /hpf (5-10); White Blood Cells 0-5 SEEN /hpf (0-5)
[2024-10-26 03:10] LABS: Osmolality, Serum 277 mOsm/KG (280-301)
[2024-10-26 05:14] LABS: Absolute Lymphocyte Count 0.77 X10^3/uL (0.83-4.51); Basophil# 0.04 X10^3/uL; Basophil% 1.2 % (0-1); Eosinophil# 0.05 X10^3/uL; Eosinophils% 1.5 % (0-5); Hematocrit 24.7 % (37-47); Hemoglobin 8.4 g/dL (12.0-15.0); Lymphocyte # 0.77 X10^3/ul (0.83-4.51); Lymphocyte % 23.4 % (19-41); Mean Corpuscular Hgb 31.8 pg (27.0-32.0); Mean Corpuscular Volume 93.6 fL (81-99); Mean Platelet Vol. 10.6 fl (6.2-12.0); Monocyte# 0.46 X10^3/uL; NRBC Flagged by Analyzer 0 % (0-5); Neutrophil # 1.96 X10^3/uL (2.7-7.7); Neutrophil % 59.6 % (47-70); Platelet Count 118 K/mm3 (150-450); RBC Distribution Width SD 40.8 fl (35.1-43.9); Red Blood Count 2.64 M/mm3 (4.2-5.4); White Blood Count 3.3 K/mm3 (4.4-11.0)
[2024-10-26 05:23] LABS: International Normalized Ratio 1.1; Prothrombin Time (Protime)PT. 14.5 SECONDS (11.7-14.9)
[2024-10-26 05:24] LABS: Partial Thromboplast Time 27.9 Seconds (24.1-36.2)
[2024-10-26 05:47] LABS: ALB/GLOB Ratio 2.5 RATIO (0.9-2.4); AST(SGOT) 30 U/L (<=31); Alanine Aminotransfer ALT/SGPT 28 U/L (<=34); Albumin, Serum 3.5 g/dL (3.4-4.8); Alkaline Phosphatase 70 U/L (35-104); Anion Gap 8 (5-15); BUN 22 mg/dL (4-19); BUN/Creat Ratio 66.2 RATIO (10-20); Bilirubin, Direct 0.17 mg/dL (0.00-0.30); Calcium,Total 7.7 mg/dL (7.6-11.0); Carbon Dioxide 25.5 mmol/L (21.0-32.0); Chloride 96 mmol/L (98-108); Creatinine, Serum 0.33 mg/dL (0.70-1.20); EST Glomerular Filtration Rate 104 (>60); Estimated Creatinine Clearance 34.39 ml/min (50-250); Globulin 1.4 g/dL (2.2-4.2); Glucose 90 mg/dL (70-99); Phosphorus 3.2 mg/dL (2.7-4.5); Potassium 3.8 mmol/L (3.3-5.1); Protein, Total 4.8 g/dL (5.9-8.4); Sodium Level 130 mmol/L (133-145); Total Bilirubin 0.27 mg/dL (0.00-1.30)
--- NOTE | 2024-10-26 07:53 | PCM.PN.HOSP ---
Reason for Visit Reason for Visit: Syncope/melanotic stool Subjective Subjective Patient denies any abdominal pain. States she is feeling fine right now. Has no complaints. Patient states she has never had colonoscopy. Only had a sigmoidoscopy previously with no previous colonoscopy. Was profoundly orthostatic positive. Objective Data Objective Data Vital Signs: Vital Signs Temp Pulse Resp BP Pulse Ox O2 Del Method 97 F L 69 18 139/60 H 98 Room Air 10/26/24 05:27 10/26/24 05:27 10/26/24 05:27 10/26/24 05:27 10/26/24 05:27 10/26/24 01:08 Oxygen Delivery Method Room Air Weight: 39.5 kg Body Mass Index (BMI) 15.6 Intake & Output: Intake and Output for Last 24 Hours 10/24/24 10/25/24 10/26/24 23:59 23:59 23:59 Output Total 600 / 1175 1425 / 1425 Balance -600 / -1175 -1425 / -1425 Lab / Micro Data 10/26/24 04:01 10/26/24 04:01 Labs: Laboratory Results - last 24 hr 10/25/24 00:11: Serum Osmolality 277 L, Magnesium 1.9, Vitamin B12 532, Serum Folate 14.20, TSH 1.850 10/25/24 20:15: WBC 5.6, RBC 2.99 L, Hgb 9.7 L, Hct 28.4 L, MCV 95.0, MCH 32.4 H, MCHC 34.2, RDW Std Deviation 42.0, RDW Coeff of Bruna 12.1, Plt Count 144 L, MPV 10.4, PT 14.4, INR 1.1, APTT 25.3, Sodium 126 L, Potassium 4.1, Chloride 89 L, Carbon Dioxide 26.5, Anion Gap 11, BUN 34 H, Creatinine 0.48 L, Estim Creat Clear Calc 40.22 L, Est GFR (MDRD) Non-Af 95, BUN/Creatinine Ratio 71.4 H, Glucose 141 H, Calcium 8.3 10/25/24 23:18: Blood Type O POSITIVE, Antibody Screen NEGATIVE 10/26/24 00:01: Urine Color Straw, Urine Clarity Clear, Urine pH 8.0, Ur Specific [place] 1.010, Urine Protein Negative, Urine Glucose (UA) Normal, Urine Ketones Negative, Urine Occult Blood Negative, Urine Nitrite Negative, Urine Bilirubin Negative, Urine Urobilinogen Normal, Ur Leukocyte Esterase Negative, Urine RBC 0-5 SEEN, Urine WBC 0-5 SEEN, Ur Squamous Epith Cells 0-5 SEEN, Urine Bacteria 0 SEEN, Urine Mucus 0 SEEN 10/26/24 04:01: WBC 3.3 L, RBC 2.64 L, Hgb 8.4 L, Hct 24.7 L, MCV 93.6, MCH 31.8, MCHC 34.0, RDW Std Deviation 40.8, RDW Coeff of Bruna 12.0, Plt Count 118 L, MPV 10.6, Immature Gran % (Auto) 0.300, Neut % (Auto) 59.6, Lymph % (Auto) 23.4, [place] % (Auto) 14.0 H, Eos % (Auto) 1.5, Baso % (Auto) 1.2 H, Absolute Neuts (auto) 2.0, Absolute Lymphs (auto) 0.77 L, Nucleated RBC % 0, PT 14.5, INR 1.1, APTT 27.9, Sodium 130 L, Potassium 3.8, Chloride 96 L, Carbon Dioxide 25.5, Anion Gap 8, BUN 22 H, Creatinine 0.33 L, Estim Creat Clear Calc 34.39 L, Est GFR (MDRD) Non-Af 104, BUN/Creatinine Ratio 66.2 H, Glucose 90, Calcium 7.7, Phosphorus 3.2, Total Bilirubin 0.27, Direct Bilirubin 0.17, AST 30, ALT 28, Alkaline Phosphatase 70, Total Protein 4.8 L, Albumin 3.5, Globulin 1.4 L, Albumin/Globulin Ratio 2.5 H Micro: Microbiology 10/25/24 20:49 Stool Stool Occult Blood (FROILAN) - Final Occult Blood Positive Physical Exam Const alert, oriented x3 and no apparent distress; Negative for average body habitus, healthy appearing or well nourished Constitutional Narrative: Frail, thin, elderly, white female, lying in bed, daughter and at bedside appears comfortable, nontoxic, very pleasant HEENT head/scalp atraumatic and moist oral mucous membranes HEENT Narrative: Mallampati is 1-2, no thrush Head and Scalp: normocephalic Resp normal respiratory effort, no retractions, no use of accessory muscles and clear to auscultation bilaterally Auscultation: Negative for rales, rhonchi or wheezes Cardio regular rate, regular rhythm, S1 normal heart sound, S2 normal heart sound, no murmurs, no rub, no gallops and no clicks GI normal to inspection, nondistended, normoactive bowel sounds, soft to palpation and non-tender GI Narrative: Scaphoid abdomen Extremity no clubbing, cyanosis or edema Extremity Narrative: Decreased lean muscle mass Neuro oriented x3, moves all extremities and no focal motor deficits Speech: speech normal Psych affect normal Psych Narrative: Very pleasant, interacts appropriately Assessment & Plan Assessment/Plan (1) Thrombocytopenia: (2) Melena: (3) Syncope and collapse: (4) Orthostatic hypotension: (5) Acute gastrointestinal bleeding: (6) Acute anemia: PLAN: Plan Acute GI bleed - Suspected upper with BUN/creatinine ratio and melanotic stool -Patient denies any persistent NSAID use other than baby aspirin daily - EGD is planned for later today - Continue n.p.o. - Continue IV fluids with normal saline at 70 cc/h - Continue Protonix drip - Has never previously had GI bleed - Has never had colonoscopy - Gastroenterology is consulted Acute anemia -Baseline hemoglobin appears to run between 12 and 14 - Most recently on 09/25/2024 was 13.1 - 8.4 today on a.m. lab will repeat at 2 PM - Likely the etiology for her orthostasis - Transfuse for any more significant loss or automatic transfusion for hemoglobin less than 7 - Treatment as above - Patient not having any more melanotic stool since arrival Thrombocytopenia - Suspect consumptive with GI bleeding - Repeat CBC in a.m. Chronic hyponatremia - 130 - Seems to be consistent with her baseline - repeat CBC in a.m. - If further drop will pursue further workup. 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 - Status post Mohs procedure on the day of presentation Epilepsy - Restart home gabapentin Hyperlipidemia - Continue home rosuvastatin History of alcohol abuse - Patient quit drinking in 2022 - EGD pending History of tobacco abuse - Remote DVT prophylaxis - SCDs - No chemoprophylaxis due to GI bleed CODE STATUS - DNR CCA no intubation Charges/Coding Visit Charges Inpatient E&M: 19959 Subs Hosp L2
[2024-10-26 08:30] LABS: Ferritin 35 ng/mL (22-378); Iron 69 ug/dL (50-170); Iron Binding Capacity,Total 271 ug/dL (250-450); Iron Binding Capacity,Unsat 202 ug/dL (228-428); Vitamin B12 446 pg/mL (180-914)
[2024-10-26 11:39] LABS: Osmolality, Urine 305 mOsm/KG
--- NOTE | 2024-10-26 12:00 | CASEMGMT ---
RN CM Face to Face with patient for initial transition planning/care coordination assessment. RN CM introduced self and role at [facility]. Patient lying in bed, alert and oriented, at bedside. Patient willing to participate in assessment and is able to answer all questions appropriately. Care providers, pharmacy, and demographics verified. Strata: 1 PCP: Nat Specialists: Lb, property caretaker; Preferred [facility]acy: [facility] [place] Insurance: [employer] [facility] Prescription Benefit: yes Living Will/HPOA: yes, Stephen Nurse LNOK: , daughter Living Arrangements: Patient lives with in a single story home with 1 step to enter. Patient is independent and walks 2 hours everyday. Transportation: self, DME/HHC: Patient has walker at home. No previous HHC or SNF. Patient wishes to discharge home, denies need for home health at this time. Patient states she has no further needs or concerns at this time. CM to follow for discharge planning needs that may arise. Disposition Plan: Patient to discharge home with family support and follow-up plans in place. Margie JONES, RN, CM
[2024-10-26 14:01] LABS: Bedside Glucose 106 mg/dL (74-106)
[2024-10-26 14:18] LABS: Hematocrit 26.4 % (37-47)
--- NOTE | 2024-10-26 14:55 | PCM.PRE.AN2 ---
ASA Classification* ASA Classification ASA Classification: 3 Assessment & Plan Anesthesia* Anesthesia Assessment Anesthesia Assessment: Discussed sedation and/or anesthesia options, risks, benefits, and alternatives with patient/parents/legal guardian/POA. Questions invited. The patient/parents/legal guardian/POA seems to understand and agrees to proceed with anesthesia plan. Reviewed the physical assessment, medical history, allergy history and patient home medications list prior to surgery/procedure/anesthetic and documented any changes. Performed airway and anesthesia risk assessments. Anesthesia Type Anesthesia Type: MAC (Has had some postural hypotension this morning. PRBC's have been ordered and is pending) Anesthesia Focused Assessment* Temperature: 98.3 F Pulse Rate: 77 Blood Pressure: 137/69 Respiratory Rate: 16 Pulse Ox: 95 Airway Assessment Mouth opens: >3 cm Mallampati Score: II Focused Labs Anesthesia Preop lab: CBC WBC 3.3 K/mm3 (4.4-11.0) L 10/26/24 04:01 10/26/24 RBC 2.64 M/mm3 (4.2-5.4) L 10/26/24 04:01 10/26/24 Hgb 9.0 g/dL (12.0-15.0) L 10/26/24 13:50 10/26/24 Hct 26.4 % (37-47) L 10/26/24 13:50 10/26/24 Plt Count 118 K/mm3 (150-450) L 10/26/24 04:01 10/26/24 CHEMISTRY Potassium 3.8 mmol/L (3.3-5.1) 10/26/24 04:01 10/26/24 Sodium 130 mmol/L (133-145) L 10/26/24 04:01 10/26/24 Magnesium 1.9 mg/dL (1.5-2.2) 10/25/24 00:11 10/25/24 Phosphorus 3.2 mg/dL (2.7-4.5) 10/26/24 04:01 10/26/24 BUN 22 mg/dL (4-19) H 10/26/24 04:01 10/26/24 Creatinine 0.33 mg/dL (0.70-1.20) L 10/26/24 04:01 10/26/24 Glucose 90 mg/dL (70-99) 10/26/24 04:01 10/26/24 POC Glucose 106 mg/dL (74-106) 10/26/24 13:39 10/26/24 TSH 1.850 uIU/mL (0.300-4.200) 10/25/24 00:11 10/25/24 COAG PT 14.5 SECONDS (11.7-14.9) 10/26/24 04:01 10/26/24 Pre-Assessment Diagnosis/Proposed Procedure Planned Operative Procedure(s): MALICK Anesthesia History Anesthesia History - healthcare consultant: Anesthesia History - healthcare consultant Hx Hospitalization Any Problems With Anesthesia Cholinesterase deficiency You/Your Family Experience fever (hyperthermia) with Relationship Recent Exposure to Contagious Disease Does patient have nerve stimulator Patient instructed to have device shut off --Does patient have Pacemaker or ICD? When Was Last Pacemaker Check QUESTION #4 FULL TEXT: You/Your Family Experience fever (hyperthermia) with Anesthesia Last Oral Intake Last Oral intake: Last Oral Intake NPO since 00:00 10/26/24 13:55 Meds taken in AM with sips of No 10/26/24 13:55 water? Meds patient instructed to take am of surgery PONV PONV - healthcare consultant: PONV - healthcare consultant Female HX of Motion Sickness HX of N/V After Surgery Non-Smoker Duration of Surgery greater than 60 minutes Number of Risk Factors PONV Score Height & Weight Height & Weight: Anesthesia: Height & Weight Height 5 ft 2.5 in 10/26/24 13:55 Weight: 39.5 kg 10/26/24 13:55 Body Mass Index (BMI) 15.6 10/26/24 13:55 Respiratory Assessment Respiratory Assessment - healthcare consultant: Respiratory Tract Infection Hx - healthcare consultant Hx Respiratory Tract Infection STOP Sleep Apnea STOP Sleep Apnea - healthcare consultant: STOP Sleep Apnea - healthcare consultant Hx Hypertension No 10/25/24 23:44 Hx Sleep Apnea No 10/25/24 23:44 CPAP BIPAP Do you snore loudly (louder No 10/25/24 23:44 than talking or can be heard Do you often feel tired/ No 10/25/24 23:44 fatigued/ sleepy during daytime? Has anyone observed you stop No 10/25/24 23:44 breathing during sleep? STOP Results Negative 10/25/24 23:44 QUESTION #5 FULL TEXT : Do you snore loudly (louder than talking or can be heard through closed doors)? 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 Specify any problems Hx of Preganancy in last 3 N/A 10/25/24 23:44 Months Nurse Filling Out Transfusion JGALLOWAY 10/25/24 23:44 & Questions: Date: 10/26/24 10/25/24 23:44 Time: 00:26 10/25/24 23:44 Patient unable to answer at this time (ie. confused, unrespo /Reproduction History /Reproductive History - healthcare consultant: /Reproductive Hx- healthcare consultant Hx Now Gestational Age (in weeks): EDC: Hx Hx Para Hx Section SAB Active Medications Active Medications: Current Medications Generic Name Dose Route Start Last Admin Trade Name Freq PRN Reason Stop Dose Admin Atorvastatin Calcium 10 mg 10/26/24 10:00 Atorvastatin Calcium 10 Mg Tablet PO DAILY ROXANNE Buspirone HCl 15 mg 10/26/24 14:00 Buspirone 15 Mg Tablet PO TID ROXANNE Gabapentin 300 mg 10/26/24 14:00 Gabapentin 300 Mg Capsule PO TID ROXANNE Sodium Chloride 250 mls @ 15 mls/hr 10/25/24 23:45 IV .[id number] PRN Saline Flush Sodium Chloride 250 mls @ 15 mls/hr 10/25/24 23:45 IV .[id number] PRN Additional IVPB Infusion Pantoprazole Sodium 80 mg/ 100 mls @ 10 mls/hr 10/25/24 23:47 10/26/24 10:09 Sodium Chloride CONT INF 10 mls/hr Q10H ROXANNE Administration Levothyroxine Sodium 50 mcg 10/27/24 06:00 Levothyroxine 50 Mcg Tablet PO DAILY@0600 ROXANNE Lorazepam 1 mg 10/25/24 23:47 Lorazepam 2 Mg/Ml Wch Syringe IV Q4H PRN PRN SEIZURES Morphine Sulfate 2 mg 10/25/24 23:47 Morphine 2 Mg/Ml Syringe IV Q4H PRN PRN Pain Score 6-10 Ondansetron HCl 4 mg 10/25/24 23:47 Ondansetron 4 Mg/2 Ml Vial IV Q6H PRN PRN NAUSEA/VOMITING Prochlorperazine Edisylate 5 mg 10/25/24 23:47 Prochlorperazine 10 Mg/2 Ml Vial IV Q4H PRN PRN NAUSEA/VOMITING Promethazine HCl 12.5 mg 10/25/24 23:47 Promethazine 25 Mg/Ml Syringe IM Q4H PRN PRN BREAKTHROUGH NAUSEA Sodium Chloride 10 - 40 ml 10/25/24 23:45 10/26/24 00:51 0.9% Saline Lock 10 Ml Syringe IV 10 ml UD PRN Administration SALINE FLUSH PFSH Medical History Fatigue Acute ischemic stroke Epilepsy Alcohol abuse Anxiety Home Medications ?Medication ?Instructions ?Recorded ?Last Taken ?Type aspirin 81 mg chewable tablet 81 mg PO BREAKFAST [facility] 08/23/22 Unknown History levothyroxine 50 mcg tablet 50 mcg PO DAILY@0600 30 days #30 08/26/22 Unknown Rx tabs rosuvastatin 5 mg tablet 5 mg PO DAILY #90 tabs 01/18/23 Unknown Rx buspirone 15 mg tablet 15 mg PO TID 10/25/24 Unknown History gabapentin 300 mg capsule 300 mg PO TID 10/25/24 Unknown History Allergy/AdvReac Type Severity Reaction Status Date / Time Milk Containing Products Allergy Diarrhea Verified 10/25/24 20:17 (Dairy) (Milk Containing Products) Surgical History Hx of hysterectomy Social History household members: spouse Smoking Status: Former smoker alcohol intake: former year quit: 2022 details: Recently quit drinking alcohol 2-3 weeks ago. substance use type: does not use what type of physical activity do you participate in: walking frequency: daily colleen/sikhism: Confucianism seatbelt use: always Review of Systems (Anesthesia) ROS Narrative System reviewed and no additional complaints, except as documented.
--- NOTE | 2024-10-26 15:46 | EX.PCM.CON.G ---
HPI Consult Data Date of Consult: 10/26/24 HPI Narrative Reason for Consultation: GI bleed HPI Narrative: CHIOMA ABAD, is a 79 F presented to [facility] ER complaining of syncope and abdominal pain with subsequent melanotic stool. She has a history of iron deficiency anemia, alcoholism and thrombocytopenia on aspirin. She had a syncopal episode while eating at [employer]. She denies a history of peptic ulcer disease, coronary artery disease or similar previous episodes. She also admits to her vision tunneling before she blacked. Blood work- Thrombocytopenia of 144K with hemoglobin of 9.7 g/dL [facility] Medical History Fatigue Acute ischemic stroke Epilepsy Alcohol abuse Anxiety Home Medications ?Medication ?Instructions ?Recorded ?Last Taken ?Type aspirin 81 mg chewable tablet 81 mg PO BREAKFAST [facility] 08/23/22 Unknown History levothyroxine 50 mcg tablet 50 mcg PO DAILY@0600 30 days #30 08/26/22 Unknown Rx tabs rosuvastatin 5 mg tablet 5 mg PO DAILY #90 tabs 01/18/23 Unknown Rx buspirone 15 mg tablet 15 mg PO TID 10/25/24 Unknown History gabapentin 300 mg capsule 300 mg PO TID 10/25/24 Unknown History Allergy/AdvReac Type Severity Reaction Status Date / Time Milk Containing Products Allergy Diarrhea Verified 10/25/24 20:17 (Dairy) (Milk Containing Products) Surgical History Hx of hysterectomy Social History household members: spouse Smoking Status: Former smoker alcohol intake: former year quit: 2022 details: Recently quit drinking alcohol 2-3 weeks ago. substance use type: does not use what type of physical activity do you participate in: walking frequency: daily colleen/mu-ism: [employer] seatbelt use: always ROS ROS Narrative Review of Systems: Constitutional: Patient denies fever, chills or weight loss. Eyes: Patient admits to tunnel vision prior to blacking out. ENT: Patient denies runny nose, sore throat or ear pain. Resp: Patient denies shortness of breath or cough. CV: Patient admits to syncopal event but she denies chest pain, palpitations, heart racing or lower extremity edema. GI: Patient admits to pressure-like lower abdominal pain just prior to expressing melanotic stool with nausea. She denies vomiting or constipation. : Patient denies dysuria, hematuria urinary frequency. MSK: Patient denies arthralgias or myalgias. 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 Psych: Patient denies symptoms of uncontrolled depression or anxiety. Neuro: Patient denies headache, paresthesias or focal neurologic deficits. Allergy: Patient denies lip swelling, tongue swelling or urticaria. Hematology: Patient admits to melanotic stools as per HPI. Endocrinology: Patient denies polyuria, polydipsia, polyphagia or heat/cold intolerance. 14 point ROS otherwise negative save for positives noted above in HPI. Physical Exam Const alert, oriented x3, no apparent distress and healthy appearing General Appearance: cooperative GI normal to inspection, nondistended, normoactive bowel sounds, soft to palpation, non-tender and non-distended Percussion: normal to percussion Rectal Exam: deferred Lab / Micro Data 10/26/24 13:50 10/26/24 04:01 Labs: Laboratory Results - last 24 hr 10/25/24 00:01: Urine Osmolality 305 10/25/24 00:11: Serum Osmolality 277 L, Magnesium 1.9, Vitamin B12 532, Serum Folate 14.20, TSH 1.850 10/25/24 20:15: WBC 5.6, RBC 2.99 L, Hgb 9.7 L, Hct 28.4 L, MCV 95.0, MCH 32.4 H, MCHC 34.2, RDW Std Deviation 42.0, RDW Coeff of Bruna 12.1, Plt Count 144 L, MPV 10.4, PT 14.4, INR 1.1, APTT 25.3, Sodium 126 L, Potassium 4.1, Chloride 89 L, Carbon Dioxide 26.5, Anion Gap 11, BUN 34 H, Creatinine 0.48 L, Estim Creat Clear Calc 40.22 L, Est GFR (MDRD) Non-Af 95, BUN/Creatinine Ratio 71.4 H, Glucose 141 H, Calcium 8.3 10/25/24 23:18: Blood Type O POSITIVE, Antibody Screen NEGATIVE, Crossmatch See Detail 10/26/24 00:01: Urine Color Straw, Urine Clarity Clear, Urine pH 8.0, Ur Specific [place] 1.010, Urine Protein Negative, Urine Glucose (UA) Normal, Urine Ketones Negative, Urine Occult Blood Negative, Urine Nitrite Negative, Urine Bilirubin Negative, Urine Urobilinogen Normal, Ur Leukocyte Esterase Negative, Urine RBC 0-5 SEEN, Urine WBC 0-5 SEEN, Ur Squamous Epith Cells 0-5 SEEN, Urine Bacteria 0 SEEN, Urine Mucus 0 SEEN 10/26/24 04:01: WBC 3.3 L, RBC 2.64 L, Hgb 8.4 L, Hct 24.7 L, MCV 93.6, MCH 31.8, MCHC 34.0, RDW Std Deviation 40.8, RDW Coeff of Bruna 12.0, Plt Count 118 L, MPV 10.6, Immature Gran % (Auto) 0.300, Neut % (Auto) 59.6, Lymph % (Auto) 23.4, [place] % (Auto) 14.0 H, Eos % (Auto) 1.5, Baso % (Auto) 1.2 H, Absolute Neuts (auto) 2.0, Absolute Lymphs (auto) 0.77 L, Nucleated RBC % 0, PT 14.5, INR 1.1, APTT 27.9, Sodium 130 L, Potassium 3.8, Chloride 96 L, Carbon Dioxide 25.5, Anion Gap 8, BUN 22 H, Creatinine 0.33 L, Estim Creat Clear Calc 34.39 L, Est GFR (MDRD) Non-Af 104, BUN/Creatinine Ratio 66.2 H, Glucose 90, Calcium 7.7, Phosphorus 3.2, Iron 69, TIBC 271, Iron Saturation 25.0, Unsaturated IBC 202 L, Ferritin 35, Total Bilirubin 0.27, Direct Bilirubin 0.17, AST 30, ALT 28, Alkaline Phosphatase 70, Total Protein 4.8 L, Albumin 3.5, Globulin 1.4 L, Albumin/Globulin Ratio 2.5 H, Vitamin B12 446, Serum Folate 14.90 10/26/24 13:39: POC Glucose 106 10/26/24 13:50: Hgb 9.0 L, Hct 26.4 L Micro: Microbiology 10/25/24 20:49 Stool Stool Occult Blood (FROILAN) - Final Occult Blood Positive Imaging Radiology Impression Echocardiogram 10/25/24 23:47 Interpretation Summary The estimated ejection fraction is 65 %. No evidence for diastolic dysfunction. There is mild biatrial dilatation. Ordering Physician: Pastor Hernandez Referring Physician: Jamal Johns Performed By: Sandra Pinto, DAVID, RVT Assessment & Plan Assessment/Plan (1) Upper GI bleed: (2) Melena: (3) Thrombocytopenia: (4) Iron deficiency anemia: (5) Adverse drug reaction: (6) Syncope and collapse: (7) Orthostatic hypotension: (8) Hyponatremia: PLAN: Plan 79-year-old with multiple comorbidities with signs symptoms of GI bleed complicated by thrombocytopenia and anemia. She will undergo an upper endoscopy to evaluate the GI tract. She was explained alternatives, risk and benefits include understanding bleeding, infection, sepsis, perforation, need for emergent urgent . She have an ASA of 3.. Charges/Coding Visit Charges Inpatient E&M: 42627 Init Hosp L3
--- NOTE | 2024-10-26 16:32 | OP.CCLET_ITS ---
10/26/2024 Jamal Johns Md Re : Upper GI endoscopy procedure for Radha Nurse Dear Nat This procedure was performed on Saturday, October 26, 2024. My impressions and recommendations are as follows: Impressions : - Normal esophagus. - Oozing gastric ulcer with a visible vessel. Treated with a heater probe. - Non-bleeding gastric ulcer with adherent clot. Clip was placed. Clip resolution manager: [place]. - No gross lesions in the entire examined duodenum. - No specimens collected. Recommendations : - [facility]. - Clear liquid diet today. - Continue present medications. - Use Protonix (pantoprazole) 40 mg PO BID. - Use sucralfate tablets 1 gram PO QID for 1 month. My findings are described in the full procedure note, which is enclosed. If I can be of further assistance, please feel free to contact me at . Sincerely, Aurelio Rivera, 10/26/2024 4:31:55 PM This report has been signed electronically.
--- NOTE | 2024-10-26 16:32 | OP.EGD_ITS ---
Patient Name: Radha Scott Procedure Date: 10/26/2024 4:09 PM Date of : 1945 Age: 79 Procedure: Upper GI endoscopy Indications: Epigastric abdominal pain, Hematemesis, Melena Providers: Aurelio Rivera DO Referring MD: Terrance Oswald MD Medicines: Monitored Anesthesia Care Patient Profile: This is an 79 year old female. Refer to note in patient chart for documentation of history and physical. Patient has symptoms of acute epigastric abdominal pain. Complications: No immediate complications. Procedure: Pre-Anesthesia Assessment: - Prior to the procedure, a History and Physical was performed, and patient medications and allergies were reviewed. The patient is competent. The risks and benefits of the procedure and the sedation options and risks were discussed with the patient. All questions were answered and informed consent was obtained. Patient identification and proposed procedure were verified by the physician in the pre-procedure area. Mental Status Examination: alert and oriented. Airway Examination: normal oropharyngeal airway and neck mobility. Respiratory Examination: clear to auscultation. CV Examination: normal. Prophylactic Antibiotics: The patient does not require prophylactic antibiotics. Prior Anticoagulants: The patient has taken no anticoagulant or antiplatelet agents except for NSAID medication. ASA Grade Assessment: II - A patient with mild systemic disease. After reviewing the risks and benefits, the patient was deemed in satisfactory condition to undergo the procedure. The anesthesia plan was to use monitored anesthesia care (MAC). Immediately prior to administration of medications, the patient was re-assessed for adequacy to receive sedatives. The heart rate, respiratory rate, oxygen saturations, blood pressure, adequacy of pulmonary ventilation, and response to care were monitored throughout the procedure. The physical status of the patient was re-assessed after the procedure. After obtaining informed consent, the endoscope was passed under direct vision. Throughout the procedure, the patient's blood pressure, pulse, and oxygen saturations were monitored continuously. The Endoscope was introduced through the mouth, and advanced to the fourth part of the duodenum. Small bowel enteroscopy was deemed necessary. The upper GI endoscopy was accomplished without difficulty. The patient tolerated the procedure well. Scope In: 4:18:10 PM Scope Out: 4:27:10 PM Total Procedure Duration Time 0 hours 9 minutes 0 seconds Findings: The examined esophagus was normal. One oozing cratered gastric ulcer with a visible vessel was found in the gastric antrum. The lesion was 22 mm in largest dimension. Coagulation for hemostasis using heater probe was successful. Estimated blood loss was minimal. One non-bleeding cratered gastric ulcer with adherent clot was found in the prepyloric region of the stomach. The lesion was 10 mm in largest dimension. To stop active bleeding, one hemostatic clip was successfully placed. Clip beer brewer: Kopo Kopo. There was no bleeding at the end of the procedure. No gross lesions were noted in the entire examined duodenum. Impression: - Normal esophagus. - Oozing gastric ulcer with a visible vessel. Treated with a heater probe. - Non-bleeding gastric ulcer with adherent clot. Clip was placed. Clip beer brewer: [place]. - No gross lesions in the entire examined duodenum. - No specimens collected. Recommendation: - Return patient to [facility] for [facility] care. - Clear liquid diet today. - Continue present medications. - Use Protonix (pantoprazole) 40 mg PO BID. - Use sucralfate tablets 1 gram PO QID for 1 month. Procedure Code(s): --- Professional --- 32803, Small intestinal endoscopy, enteroscopy beyond second portion of duodenum, not including ileum; with control of bleeding (eg, injection, bipolar cautery, unipolar cautery, laser, heater probe, stapler, plasma lead refiner) CPT copyright 2021 [employer]. All rights reserved. The codes documented in this report are preliminary and upon cfa review may be revised to meet current compliance requirements. Aurelio Rivera DO 10/26/2024 4:31:55 PM This report has been signed electronically. Number of Addenda: 0 Note Initiated On: 10/26/2024 4:09 PM
--- NOTE | 2024-10-26 16:32 | PCM.POST.ANE ---
Anesthesia: Postop Eval I Current Vital Signs Temperature: 98.4 F Pulse Rate: 77 Blood Pressure: 99/56 Respiratory Rate: 16 Pulse Ox: 94 Assessment Airway patent: Yes Spontaneous unlabored respirations: Yes nausea: No Vomiting: No Anesthesia Complication: No Fluid Hydration Crystalloid volume administer (ml): 300 Total IV fluid infused: 300 Progress Note Anesthesia document: Postop Eval 1 completed: Yes
--- NOTE | 2024-10-26 16:34 | POSTOPAN2_ITS ---
Anesthesia Postop Eval I Sum Postop Eval Completion status Anesthesia document: Postop Eval 1 completed: Yes Anesthesia Postop Eval I Summary Anesthesia Postop Eval I Summary: Anesthesia Postop Eval I: Assessment Summary Airway patent Yes 10/26/24 16:33 TELE GROUT SEWER LINE REPAIRER.[email or web address] Spontaneous unlabored Yes 10/26/24 16:33 TELE GROUT SEWER LINE REPAIRER.[email or web address] respirations Mental status nausea No 10/26/24 16:33 TELE GROUT SEWER LINE REPAIRER.[email or web address] Vomiting No 10/26/24 16:33 TELE GROUT SEWER LINE REPAIRER.[email or web address] Anesthesia Postop Eval I: Fluid Summary Crystalloid volume administer 300 10/26/24 16:33 TELE GROUT SEWER LINE REPAIRER.TNES (ml) Colloids volume administered ( ml) Blood Product volume administered (ml) Total IV fluid infused 300 10/26/24 16:33 TELE GROUT SEWER LINE REPAIRER.TNES Anesthesia Postop Eval I: Summary Notes Anesthesia Complication No 10/26/24 16:33 TELE GROUT SEWER LINE REPAIRER.TNES Anesthesia Complication Comment: Post-operative progress note Anesthesia: Postop Eval II Evaluation Mental status: Awake Pain Level: 0 nausea: No Vomiting: No
--- NOTE | 2024-10-26 16:34 | PCM.POSTANE2 ---
Anesthesia Postop Eval I Sum Postop Eval Completion status Anesthesia document: Postop Eval 1 completed: Yes Anesthesia Postop Eval I Summary Anesthesia Postop Eval I Summary: Anesthesia Postop Eval I: Assessment Summary Airway patent Yes 10/26/24 16:33 SPA [email or web address] Spontaneous unlabored Yes 10/26/24 16:33 SPA [email or web address] respirations Mental status nausea No 10/26/24 16:33 SPA DIRECTOR/[email or web address].[email or web address] Vomiting No 10/26/24 16:33 SPA [email or web address].[email or web address] Anesthesia Postop Eval I: Fluid Summary Crystalloid volume administer 300 10/26/24 16:33 SPA [email or web address].[email or web address] (ml) Colloids volume administered ( ml) Blood Product volume administered (ml) Total IV fluid infused 300 10/26/24 16:33 SPA [email or web address] Anesthesia Postop Eval I: Summary Notes Anesthesia Complication No 10/26/24 16:33 SPA [email or web address].[email or web address] Anesthesia Complication Comment: Post-operative progress note Anesthesia: Postop Eval II Evaluation Mental status: Awake Pain Level: 0 nausea: No Vomiting: No
--- NOTE | 2024-10-26 18:39 | CASEMGMT ---
Social Work Attempted AD validation but patient was off unit. See attached SW AD validation intervention for further details. -EMRE Andujar
[2024-10-26] MEDS: Gabapentin 300 MG Capsule PO (21:35)
[2024-10-26] MEDS: busPIRone 15 MG TABLET PO (21:36)
[2024-10-27 03:19] VITALS: BP 128/57; PULSE 67; RESP 18; TEMP 36.4; O2SAT 97
[2024-10-27 04:48] VITALS: BMI 15.0
[2024-10-27 05:18] LABS: Absolute Lymphocyte Count 0.52 X10^3/uL (0.83-4.51); Absolute Neutrophil Count 11.6 X10^3/uL (2.0-7.7); Basophil# 0.05 X10^3/uL; Basophil% 0.4 % (0-1); Eosinophil# 0.07 X10^3/uL; Eosinophils% 0.5 % (0-5); Hematocrit 35.2 % (37-47); Hemoglobin 12.6 g/dL (12.0-15.0); Lymphocyte # 0.52 X10^3/ul (0.83-4.51); Lymphocyte % 3.9 % (19-41); Mean Corp Hgb Conc 35.8 g/dL (32-36); Mean Corpuscular Hgb 31.6 pg (27.0-32.0); Mean Corpuscular Volume 88.2 fL (81-99); Mean Platelet Vol. 10.4 fl (6.2-12.0); Monocyte# 0.97 X10^3/uL; Monocyte% 7.3 % (0-10); NRBC Flagged by Analyzer 0 % (0-5); Neutrophil # 11.59 X10^3/uL (2.7-7.7); Neutrophil % 87.5 % (47-70); POSITIVE DIFFERENTIAL YES; Platelet Count 104 K/mm3 (150-450); RBC Distribution Width SD 45.1 fl (35.1-43.9); Red Blood Count 3.99 M/mm3 (4.2-5.4); White Blood Count 13.3 K/mm3 (4.4-11.0)
[2024-10-27 05:45] LABS: Magnesium 1.7 mg/dL (1.5-2.2); Phosphorus 3.1 mg/dL (2.7-4.5)
[2024-10-27 05:50] LABS: ALB/GLOB Ratio 2.2 RATIO (0.9-2.4); AST(SGOT) 34 U/L (<=31); Alanine Aminotransfer ALT/SGPT 29 U/L (<=34); Albumin, Serum 3.5 g/dL (3.4-4.8); Alkaline Phosphatase 67 U/L (35-104); Anion Gap 10 (5-15); BUN 8 mg/dL (4-19); BUN/Creat Ratio 25.3 RATIO (10-20); Calcium,Total 7.8 mg/dL (7.6-11.0); Carbon Dioxide 25.1 mmol/L (21.0-32.0); Chloride 90 mmol/L (98-108); Creatinine, Serum 0.31 mg/dL (0.70-1.20); EST Glomerular Filtration Rate 105 (>60); Estimated Creatinine Clearance 33.09 ml/min (50-250); Globulin 1.6 g/dL (2.2-4.2); Glucose 115 mg/dL (70-99); Potassium 3.2 mmol/L (3.3-5.1); Protein, Total 5.1 g/dL (5.9-8.4); Sodium Level 125 mmol/L (133-145); Total Bilirubin 0.93 mg/dL (0.00-1.30)
[2024-10-27] MEDS: Gabapentin 300 MG Capsule PO ×3 (06:23→21:27)
[2024-10-27] MEDS: Levothyroxine 50 MCG Tablet PO (06:23)
[2024-10-27] MEDS: busPIRone 15 MG TABLET PO ×3 (06:24→21:27)
[2024-10-27] MEDS: Pantoprazole Sodium 80 MG in 0.9% Normal Saline (100mL Bag) 80 ML 10 MG CONT INF (06:34)
--- NOTE | 2024-10-27 07:05 | PN.HOSP_ITS ---
Reason for Visit Reason for Visit: Syncope/melanotic stool Subjective Subjective Patient complaining because we have not fed her real food yet. I did discuss the findings on the EGD and she voiced understanding. She did tolerate clear liquids without any problem. I do plan to advance her diet to full liquids and then a regular diet this afternoon. She seems pleased with this. We did discuss the need for Protonix use ongoing orally and then Carafate for short- term. Hemoglobin seems to be stable. We did discuss possible discharge home as long as she seems to be hemodynamically stable and blood counts remain stable. Objective Data Objective Data Vital Signs: Vital Signs Temp Pulse Resp BP Pulse Ox O2 Del Method 97.6 F L 67 18 128/57 H 97 Room Air 10/27/24 03:19 10/27/24 03:19 10/27/24 03:19 10/27/24 03:19 10/27/24 03:19 10/27/24 03:19 Oxygen Delivery Method Room Air Weight: 38 kg Body Mass Index (BMI) 15.0 Intake & Output: Intake and Output for Last 24 Hours 10/25/24 10/26/24 10/27/24 23:59 23:59 23:59 Intake Total 2872.83 / 2872.83 290 / 290 Output Total 600 / 1175 2175 / 2175 900 / 900 Balance -600 / -1175 697.83 / 697.83 -610 / -610 Lab / Micro Data 10/27/24 04:58 10/27/24 04:58 Labs: Laboratory Results - last 24 hr 10/25/24 00:01: Urine Osmolality 305 10/25/24 23:18: Crossmatch See Detail 10/26/24 04:01: Iron 69, TIBC 271, Iron Saturation 25.0, Unsaturated IBC 202 L, Ferritin 35, Vitamin B12 446, Serum Folate 14.90 10/26/24 13:39: POC Glucose 106 10/26/24 13:50: Hgb 9.0 L, Hct 26.4 L 10/27/24 04:58: WBC 13.3 H, RBC 3.99 L, Hgb 12.6, Hct 35.2 L, MCV 88.2 D, MCH 31.6, MCHC 35.8 D, RDW Std Deviation 45.1 H, RDW Coeff of Bruna 14.0, Plt Count 104 L, MPV 10.4, Immature Gran % (Auto) 0.400, Neut % (Auto) 87.5 H, Lymph % (Auto) 3.9 L, [place] % (Auto) 7.3, Eos % (Auto) 0.5, Baso % (Auto) 0.4, Absolute Neuts (auto) 11.6 H, Absolute Lymphs (auto) 0.52 L, Nucleated RBC % 0, Sodium 125 L, Potassium 3.2 L, Chloride 90 L, Carbon Dioxide 25.1, Anion Gap 10, BUN 8, Creatinine 0.31 L, Estim Creat Clear Calc 33.09 L, Est GFR (MDRD) Non-Af 105, B UN/Creatinine Ratio 25.3 H, Glucose 115 H, Calcium 7.8, Phosphorus 3.1, Magnesium 1.7, Total Bilirubin 0.93, AST 34 H, ALT 29, Alkaline Phosphatase 67, Total Protein 5.1 L, Albumin 3.5, Globulin 1.6 L, Albumin/Globulin Ratio 2.2 Micro: Microbiology 10/25/24 20:49 Stool Stool Occult Blood (FROILAN) - Final Occult Blood Positive Radiography Diagnostic Testing: Radiology Impression Echocardiogram 10/25/24 23:47 Interpretation Summary The estimated ejection fraction is 65 %. No evidence for diastolic dysfunction. There is mild biatrial dilatation. Ordering Physician: Pastor Hernandez Referring Physician: Jamal Johns Performed By: Sandra Pinto, RDCS, RVT Physical Exam Const alert, oriented x3 and no apparent distress; Negative for average body habitus, healthy appearing or well nourished Constitutional Narrative: Frail, thin, elderly, white female, sleeping on arrival but awakens easily to name, appears comfortable, nontoxic, very pleasant General Appearance: cooperative HEENT normocephalic, head/scalp atraumatic, hearing grossly normal bilaterally and moist oral mucous membranes HEENT Narrative: Mallampati 1, no thrush, significant temporal wasting bilaterally Resp normal respiratory effort, no retractions, no use of accessory muscles and clear to auscultation bilaterally Auscultation: Negative for rales, rhonchi or wheezes Cardio regular rate, regular rhythm, S1 normal heart sound, S2 normal heart sound, no murmurs, no rub, no gallops and no clicks GI normal to inspection, nondistended, normoactive bowel sounds, soft to palpation and non-tender GI Narrative: Scaphoid abdomen Auscultation: hyperactive bowel sounds Extremity no clubbing, cyanosis or edema Extremity Narrative: Decreased lean muscle mass Neuro oriented x3, moves all extremities and no focal motor deficits Speech: speech normal Psych affect normal Psych Narrative: Very pleasant, interacts appropriately Assessment & Plan Assessment/Plan (1) Thrombocytopenia: (2) Melena: (3) Syncope and collapse: (4) Orthostatic hypotension: (5) Acute gastrointestinal bleeding: (6) Acute anemia: (7) Peptic ulcer disease: (8) Hypokalemia: PLAN: Plan Acute GI bleed secondary to peptic ulcer disease - EGD performed on 10/26/2024 that showed normal esophagus, oozing gastric ulcer with a visible vessel that was treated with heater probe and a nonbleeding gastric ulcer with an adherent clot. Clip was placed - Has been doing well on a clear liquid diet--> advance to full and if tolerates that well will advance to regular diet - Discontinue IV fluids - Discontinue Protonix drip and transition her to p.o. Protonix 40 mg twice daily - Start Carafate 4 times daily - Biopsies are pending -Continue to hold aspirin for an indefinite amount of time until further clarified by gastroenterology suspect at least 2 weeks if not more - GI is following-appreciate input Acute anemia - Baseline hemoglobin appears to run between 12 and 14 - Stas hemoglobin was 8.4 - Patient was symptomatic and that she was having syncopal episodes with a hemoglobin of 8.4 so she was transfused 2 units of packed red blood cells on 10/26/2024 -Now if you get the other thing I will talk to Tim hemoglobin today is 12.6 - Repeat CBC in a.m. and if hemoglobin remained stable anticipate discharge home Thrombocytopenia - Suspect consumptive with GI bleeding - Repeat CBC in a.m. Chronic hyponatremia - 125 today and relatively stable compared to previous - Repeat BMP in a.m. Hypokalemia - P.o. potassium replacement - Recheck in a.m. 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
[2024-10-27] MEDS: Pantoprazole Sodium 40 MG Tablet PO ×2 (09:05→21:27)
[2024-10-27] MEDS: Potassium Chloride Oral Tablet 20 MEQ 40 MEQ PO (09:05)
[2024-10-27] MEDS: Atorvastatin Calcium 10 MG Tablet PO (09:05)
[2024-10-27 09:11] VITALS: BP 129/50; PULSE 70; RESP 18; TEMP 36.6; O2SAT 96
[2024-10-27] MEDS: Sucralfate 1 GM Tablet PO ×3 (11:15→21:27)
[2024-10-27 15:11] VITALS: BP 100/50; PULSE 71; RESP 18; TEMP 36.7; O2SAT 95
[2024-10-27 21:11] VITALS: BP 118/61; PULSE 66; RESP 18; TEMP 37.1; O2SAT 98
[2024-10-27] MEDS: DiphenhydrAMINE 50 MG/ML Syringe 12.5 MG IV (21:27)
[2024-10-27] MEDS: 0.9% Saline Lock 10 ML Syringe IV (21:28)
[2024-10-28 03:10] VITALS: BP 145/71; PULSE 59; RESP 18; TEMP 36.5; O2SAT 100
[2024-10-28 04:37] LABS: Absolute Lymphocyte Count 0.87 X10^3/uL (0.83-4.51); Absolute Neutrophil Count 6.6 X10^3/uL (2.0-7.7); Basophil# 0.03 X10^3/uL; Basophil% 0.4 % (0-1); Eosinophils% 2.3 % (0-5); Hematocrit 35.2 % (37-47); Hemoglobin 12.3 g/dL (12.0-15.0); Lymphocyte # 0.87 X10^3/ul (0.83-4.51); Lymphocyte % 10.2 % (19-41); Mean Corp Hgb Conc 34.9 g/dL (32-36); Mean Corpuscular Hgb 31.3 pg (27.0-32.0); Mean Corpuscular Volume 89.6 fL (81-99); Mean Platelet Vol. 10.9 fl (6.2-12.0); Monocyte# 0.86 X10^3/uL; Monocyte% 10.1 % (0-10); NRBC Flagged by Analyzer 0 % (0-5); Neutrophil # 6.56 X10^3/uL (2.7-7.7); Neutrophil % 76.8 % (47-70); Platelet Count 105 K/mm3 (150-450); RBC Distribution Width CV 13.7 % (11.6-14.6); Red Blood Count 3.93 M/mm3 (4.2-5.4); White Blood Count 8.5 K/mm3 (4.4-11.0)
[2024-10-28 05:12] LABS: Anion Gap 9 (5-15); BUN 18 mg/dL (4-19); BUN/Creat Ratio 37.2 RATIO (10-20); Calcium,Total 8.5 mg/dL (7.6-11.0); Carbon Dioxide 24.3 mmol/L (21.0-32.0); Chloride 96 mmol/L (98-108); Creatinine, Serum 0.47 mg/dL (0.70-1.20); EST Glomerular Filtration Rate 95 (>60); Estimated Creatinine Clearance 33.09 ml/min (50-250); Glucose 102 mg/dL (70-99); Potassium 4.3 mmol/L (3.3-5.1); Sodium Level 130 mmol/L (133-145)
[2024-10-28 05:32] VITALS: BMI 15.9
[2024-10-28] MEDS: Levothyroxine 50 MCG Tablet PO (06:15)
[2024-10-28] MEDS: Gabapentin 300 MG Capsule PO ×2 (06:15→12:19)
[2024-10-28] MEDS: busPIRone 15 MG TABLET PO ×2 (06:15→12:16)
[2024-10-28] MEDS: Sucralfate 1 GM Tablet PO ×2 (06:15→12:16)
[2024-10-28 07:28] VITALS: O2SAT 98
--- NOTE | 2024-10-28 09:14 | PCM.DC.SUM ---
Providers Date of Admission: 10/25/24 Date of Discharge: 10/28/24 Primary Care Physician: Jamal Johns MD Consultations 10/25/24 23:47 Consult: Gastroenterology Routine Consulting Provider: [facility] Reason for Consult: UGIB with Melena. EMERGENT Consult: No MD Notified: Yes Date Notified: 10/24/24 Time Notified: 06:50 Method of Notification: Text Reason For Visit: UGIB, MELANOTIC STOOL, ABDOMINAL PAIN AND ADR TO Diagnosis Discharge Diagnosis (1) Thrombocytopenia: Status: Acute Code(s): D69.6 - Thrombocytopenia, unspecified (2) Melena: Status: Acute Code(s): K92.1 - Melena (3) Syncope and collapse: Status: Acute Code(s): R55 - Syncope and collapse (4) Orthostatic hypotension: Status: Acute Code(s): I95.1 - Orthostatic hypotension (5) Acute gastrointestinal bleeding: Status: Acute Code(s): K92.2 - Gastrointestinal hemorrhage, unspecified (6) Acute anemia: Status: Acute Code(s): D64.9 - Anemia, unspecified (7) Peptic ulcer disease: Status: Acute Code(s): K27.9 - Peptic ulcer, site unspecified, unspecified as acute or chronic, without hemorrhage or perforation (8) Hypokalemia: Status: Acute Code(s): E87.6 - Hypokalemia Medications at Discharge Home Medications aspirin 81 mg chewable tablet 81 mg PO BREAKFAST [facility] 08/23/22 Held on 10/28/24. Instructions: Resume on 12/03/24. levothyroxine 50 mcg tablet 50 mcg PO DAILY@0600 thyroid 30 days #30 tabs 08/26/22 rosuvastatin 5 mg tablet 5 mg PO DAILY cholesterol #90 tabs 01/18/23 buspirone 15 mg tablet 15 mg PO TID anxiety 10/25/24 gabapentin 300 mg capsule 300 mg PO TID nerve pain 10/25/24 pantoprazole 40 mg tablet,delayed release 40 mg PO BID #60 tabs 10/28/24 sucralfate 1 gram tablet 1 g PO 1HR_ACHS #120 tabs 10/28/24 Hospital Course Operations None Procedures Blood transfusion and EGD Summary of Care Provided Minutes Spent on Discharge: 42 Hospital Course: Mrs. Scott is an 79-year-old white female who presented to the emergency department [facility] on 10/25/2024 with a chief complaint of syncope and melanotic stools with brief episode of abdominal pain. Patient reports that her symptoms started just prior to arrival when she had a syncopal episode while eating a AAA. Her symptoms came on suddenly and she was witnessed to have a complete syncopal episode. She also admitted to painful pressure sensation in her lower abdomen like she is going to have bowel movements with some nausea and some melanotic stool. Her noted her to be pale and diaphoretic. She does have a noted history of iron deficiency anemia but had no previous GI bleed or anything similar to this. Vital signs on presentation showed a temperature of 96.9, heart rate was 72, respiratory rate was 18, blood pressure was 136/60 and pulse ox was 100% on room air. CBC showed normal white count. Her hemoglobin was 9.7 which was down from her baseline of 12-14. Platelet count was down to 144,000. Coags were normal. Her chemistry panel showed hyponatremia which appears to be a chronic issue for her with a sodium of 126. Renal function is normal however she had a markedly elevated BUN/creatinine ratio so upper GI bleed was suspected. Iron studies were not at the time of presentation consistent with iron deficiency. Her liver function was normal. B12 and folate were measured and were normal. Guaiac for stool was positive. Given this she was admitted to telemetry and workup for GI bleed with Protonix drip IV and a consultation to gastroenterology as well as an echocardiogram were obtained with her syncopal episode. Echocardiogram showed EF of 65% with no diastolic dysfunction and mild biatrial dilation but no valvular abnormalities. She was evaluated by gastroenterology and taken for EGD on 10/26/2024. EGD revealed a normal esophagus with 1 oozing cratered gastric ulcer and a visible vessel in the gastric antrum that was treated coagulation for hemostasis using heater probe with minimal blood loss. There is also 1 nonbleeding cratered gastric ulcer with adherent clot in the prepyloric region of the stomach. It was 10 mm in the largest dimension and to stop active bleeding 1 hemostatic clip clip was placed. There is no signs of bleeding at the end of the procedure. She was returned to the telemetry floor and placed on a clear liquid diet. We did maintain her on IV Protonix through the night. She was transition to oral Protonix on 10/27/2024 and Carafate was started. She clinically was stable. Her hemoglobin remained stable despite being able to advance her diet to regular food. Due to a syncopal episode she had in the hospital with ongoing lightheadedness she was transfused despite hemoglobin being 8.4 at lowest. 2 units of packed red blood cells were given prior to her EGD for symptomatic anemia. Hemoglobin at the time of discharge was up to 12.3. She did have thrombocytopenia which had stabilized and was starting to recover at the time of discharge. It appears that this was likely related to consumption from her bleeding. She should have a repeat CBC in 2 to 4 weeks. She is to continue Protonix and Carafate. Protonix will be 8 weeks twice daily and then transition to daily and Carafate will be treatment for 4 to 6 weeks. She is to follow-up with gastroenterology in 2 to 4 weeks. I have given her contact information and she is to call on Tuesday to set up that appointment. She is also not to take aspirin for the next 4 weeks. Prescriptions for her medications were sent to local pharmacy. She was able to discharge in stable condition to home on 10/28/2024. Discharge diagnoses: Acute upper GI bleed Peptic ulcer disease with 2 bleeding ulcers Acute anemia Thrombocytopenia secondary to consumption Adverse drug effect-aspirin Chronic hyponatremia Hypokalemia Severe malnutrition Syncope secondary to orthostatic hypotension History of ischemic stroke Hypothyroidism Squamous cell carcinoma of the left Anxiety History of alcohol use disorder History of tobacco abuse Physical Exam Const alert, oriented x3, no apparent distress and no limitations; Negative for average body habitus, healthy appearing or well nourished Constitutional Narrative: Frail, thin, elderly, white female, sitting up in bed watching television, eating breakfast, appears comfortable, nontoxic General Appearance: cooperative, comfortable, well kempt and well developed Exam Limitations: no limitations Nutritional Appearance: cachectic HEENT normocephalic, head/scalp atraumatic, hearing grossly normal bilaterally and moist oral mucous membranes HEENT Narrative: Mallampati is 1, no thrush, temporal wasting bilaterally Eyes EOMs intact bilaterally and conjunctivae normal Eyes Narrative: No scleral icterus Neck supple Neck Narrative: Trachea midline Resp normal respiratory effort, no retractions, no use of accessory muscles and clear to auscultation bilaterally Auscultation: Negative for rales, rhonchi or wheezes Cardio regular rate, regular rhythm, S1 normal heart sound, S2 normal heart sound, no murmurs, no rub, no gallops and no clicks GI normal to inspection, nondistended, normoactive bowel sounds, soft to palpation and non-tender GI Narrative: Scaphoid abdomen Extremity no clubbing, cyanosis or edema Extremity Narrative: Decreased lean muscle mass Skin skin turgor normal and no jaundice Skin Narrative: Thin skin with multiple skin changes consistent with chronic sun exposure Neuro oriented x3, moves all extremities and no focal motor deficits Speech: speech normal Psych affect normal Psych Narrative: Very pleasant, interacts appropriately Weight / BMI Weight Weight: 40.2 kg Body Mass Index (BMI) 15.9 ABG / Lab / Microbiology Data 10/28/24 03:37 10/28/24 03:37 Laboratory: Laboratory Results - last 24 hr 10/28/24 03:37: WBC 8.5, RBC 3.93 L, Hgb 12.3, Hct 35.2 L, MCV 89.6, MCH 31.3, MCHC 34.9, RDW Std Deviation 45.0 H, RDW Coeff of Bruna 13.7, Plt Count 105 L, MPV 10.9, Immature Gran % (Auto) 0.200, Neut % (Auto) 76.8 H, Lymph % (Auto) 10.2 L, [place] % (Auto) 10.1 H, Eos % (Auto) 2.3, Baso % (Auto) 0.4, Absolute Neuts (auto) 6.6, Absolute Lymphs (auto) 0.87, Nucleated RBC % 0, Sodium 130 L, Potassium 4.3, Chloride 96 L, Carbon Dioxide 24.3, Anion Gap 9, BUN 18, Creatinine 0.47 L, Estim Creat Clear Calc 33.09 L, Est GFR (MDRD) Non-Af 95, BUN/Creatinine Ratio 37.2 H, Glucose 102 H, Calcium 8.5, Magnesium 2.0 Microbiology: Microbiology 10/25/24 20:49 Stool Stool Occult Blood (FROILAN) - Final Occult Blood Positive D/C Instructions Discharge Diet: Low fat / Low cholesterol Discharge Activity: Return to Normal Activity DC O2, CPAP, BIPAP Needs Home O2 Discharge instructions: No DC home with Oxygen: No Meaningful Use Info Meaningful Use Meaningful Use Diagnoses (Choose all that apply): None applicable Ischemic Stroke Statin Dosing Therapy Reference: STATIN DOSE THERAPY REFERENCE: * Patients > 75 years receive moderate or high dose statin therapy. * Patients 75 years or YOUNGER should receive HIGH intensity statin dose unless contraindicated. You will be required to document reason for non-treatment if statin daily dose does not meet guidelines. HIGH DOSE STATIN THERAPY DAILY Atorvastatin > than or = to 40 mg Rosuvastatin > than or = to 20 mg Amlodipine + Atorvastatin > than or = to 2.5/40 mg Ezetimibe + Simvastatin 10/80 mg Simvastatin 80mg Discharge Plan Admission Admit Date/Time: 10/25/24 23:20 Primary Reason for Your Visit: Syncope/GI Bleeding Attending Provider: Laya Crisostomo Primary Care Provider: Jamal Johns Consulting Providers: Pastor Hernandez Instructions Additional Instructions / Restrictions: 1. Hold Aspirin for 1 month 2. Call Tuesday to get appt in Dr. Rivera's office for 2-4 weeks after discharge 3. Ok to start exercising but progress slowly Discharge Orders/Prescriptions Prescriptions: New pantoprazole 40 mg Tablet,Delayed Release (Dr/Ec) 40 mg PO BID Qty: 60 1RF sucralfate 1 gram Tablet 1 g PO 1HR_ACHS Qty: 120 0RF Continued rosuvastatin 5 mg tablet 5 mg PO DAILY Qty: 90 1RF levothyroxine 50 mcg Tablet 50 mcg PO DAILY@0600 30 Days Qty: 30 0RF gabapentin 300 mg capsule 300 mg PO TID buspirone 15 mg tablet 15 mg PO TID Held aspirin 81 mg tablet,chewable 81 mg PO BREAKFAST Hold Instructions: Resume on 12/03/24. Referrals / Follow Up: Jamal Johns MD [Primary Care Provider] - Within 1 Week Aurelio Rivera DO [Med Staff - Active Staff] - See Referral Note (call for appt on Tuesday to be seen for hospital follow-up in 2-4 weeks) Disposition Disposition (needs filled in before D/C Order can be placed): Home, Self Care
[2024-10-28 10:00] VITALS: BP 122/60; PULSE 81; RESP 16; TEMP 36.6; O2SAT 98
[2024-10-28] MEDS: Atorvastatin Calcium 10 MG Tablet PO (12:17)
[2024-10-28] MEDS: Pantoprazole Sodium 40 MG Tablet PO (12:17)
== END 2024-10-28 14:55 | disposition home or self-care (01) | DRG 377 ==
LOC: ED 22:56 → PCU 23:04
PROVIDERS: Anesthesiology; Internal Medicine Gastroenterology; Admitting Provider Internal Medicine; Emergency Provider Emergency Medicine; PCP Family Medicine; Referring Provider Emergency Medicine; Visit Provider Internal Medicine
PROC: 0DJ08ZZ Inspection of Upper Intestinal Tract, Via Natural or Artificial Opening Endoscopic (ICD-10-PCS; CPT 43235; principal; 2024-10-26 15:40)
DX: K25.0 Acute gastric ulcer with hemorrhage (principal); E43 Unspecified severe protein-calorie malnutrition; D68.32 Hemorrhagic disorder due to extrinsic circulating anticoagulants; E87.1 Hypo-osmolality and hyponatremia; D62 Acute posthemorrhagic anemia; Z68.1 Body mass index [BMI] 19.9 or less, adult; C76.52 Malignant neoplasm of left lower limb; D69.59 Other secondary thrombocytopenia; E02 Subclinical iodine-deficiency hypothyroidism; E78.5 Hyperlipidemia, unspecified; Z66 Do not resuscitate; G40.909 Epilepsy, unspecified, not intractable, without status epilepticus; F32.A Depression, unspecified; E87.6 Hypokalemia; I95.1 Orthostatic hypotension; F41.9 Anxiety disorder, unspecified; T39.015A Adverse effect of aspirin, initial encounter; R53.81 Other malaise; Z79.82 Long term (current) use of aspirin; Z79.890 Hormone replacement therapy; Z79.899 Other long term (current) drug therapy; Z86.59 Personal history of other mental and behavioral disorders; Z86.73 Personal history of transient ischemic attack (TIA), and cerebral infarction without residual deficits; Z87.891 Personal history of nicotine dependence
CPT/HCPCS: 36415; 80048; 80053; 80076; 81001; 82274; 82607; 82728; 82746; 82962; 83540; 83550; 83735; 83930; 83935; 84100; 84443; 85014; 85018; 85025; 85027; 85610; 85730; 86850; 86900; 86901; 93005; 93306; 97116; 97162; 97530; 99285; C1889; P9016; A4216

== ENCOUNTER → 2024-11-23 | Outpatient (CLI) | payer MEDICARE, SELFPAY ==
--- OUTSIDE RECORDS SUMMARY | 2024-11-23 06:48 | XMS RPT_ITS | CCD ---
Author Organization [facility] Care Team Providers Care Striper Spray Gun Name Role Phone Unavailable Primary Care Provider Unavailabl e ARMENTA, AME Referring Unavailable LEMON, KAILEE Attending Unavailable ARMENTA, AME Referring Unavailable ARMENTA, AME Referring Unavailable LEMON, KAILEE Attending Unavailable ARMENTA, AME Referring Unavailable ARMENTA, AME Referring Unavailable ARMENTA, AME Referring Unavailable ARMENTA, AME Attending Unavailable ARMENTA, AME Attending Unavailable ARMENTA, AME Referring Unavailable LEMON, KAILEE Attending Unavailable ARMENTA, AME Referring Unavailable ARMENTA, AME Referring Unavailable DO Chata Barton Primary Care Provider Dr. Sergio Mcfarland Attending Provider Dr. Kalin Macedo Emergency Provider Dr. Aidee Rico Admit Provider Dr. Aidee Rico Other Provider Dr. Jules Shah Attending Provider Dr. Jules Shah Other Provider Dr. Sandy Cannon Attending Provider Dr. Sandy Cannon Other Provider DO Chata Barton Referring Provider Dr. Geovany Mcneal Attending Provider DO Chata Barton Primary Care Provider DO Chata Barton Referring Provider Dr. Geovany Mcneal Attending Provider DIANA Liu Attending Provider Nat LEMUS, Chalon Primary Care Provider Adolph LEMUS, Dr. Marmolejo Attending Provider Adolph LEMUS, Dr. Marmolejo Referring Provider Darek LEMUS, Dr. Carlos Referring Provider Darek LEMUS, Dr. Carlos Emergency Provider de Kishor SANTANA, Dr. Baumann Admit Provider Unavail able de Kishor DO, Dr. Baumann Other Provider Unavail able Kranthi SANTANA, Dr. Asif Attending Provider Kranthi SANTANA, Dr. Asif Other Provider Yao LEMUS, Dr. Echols Attending Provider Dr. Aurelio Rivera DO Attending Provider Jaleel Farfan Attending Unavailable Jaleel Farfan Referring Unavailable Nat, Chalon Primary Care Unavailable Laya Crisostomo Attending Unavailable de Pastor Iverson Admitting Unavailable Oswald, Terrance Referring Unavailable Nat, Chalon Primary Care Unavailable de Pastor Iverson Consulting Unavailable Onesimo Samayoa Attending Unavailabl e Nat, Chalon Primary Care Unavailable Pastor Hernandez Admitting Unavailable Laya Crisostomo Attending Unavailable Oswald, Terrance Referring Unavailable Nat, Chalon Primary Care Unavailable Pastor Hernandez Consulting Unavailable Laya Crisostomo Consulting Unavailable Pastor Hernandez Attending Unavailable Aurelio Rivera Attending Unavailable Allergies Allergy Classification Reported Allergen(s) Allergy Type Date of Onset Reaction(s) Facility (1 source) Lactose Drug Allergy 3 Food Allergy [facility] (9 sources) Milk Containing Products Allergy to substance 3 Diarrhea [facility] (1 source) Milk Containing Products (Dairy) Drug allergy (disorder) 5 [facility] Repository Medications Current Medications Medication Drug Class(es) Dates Sig (Normalized) Sig (Original) aspirin 81 mg chewable tablet (17 sources) Platelet Aggregation Inhibitor, Nonsteroidal Anti-inflammatory Drug Start: 08-23-2022 End: 08-23-2022 take 1 tablet by mouth at breakfast Aspirin 81 mg tablet,chewable Active 81 mg PO WITH BREAKFAST August 23, 2022 2:25pm On Hold: Resume on 12/03/24. busPIRone hydrochloride 15 mg oral tablet (12 sources) Start: 10-25-2024 take 1 tablet by mouth three times daily Buspirone 15 mg tablet Active 15 mg PO THREE TIMES A DAY October 25, 2024 12:00am Start: 12-05-2019 buspirone HCl (BUSPAR ORAL) gabapentin 300 mg oral capsule (12 sources) Anti-epileptic Agent Start: 10-25-2024 take 1 capsule by mouth three times daily Gabapentin 300 mg capsule Active 300 mg PO THREE TIMES A DAY October 25, 2024 12:00am Start: 12-18-2020 gabapentin (NE URONTIN) 100 mg capsule pantoprazole 40 mg delayed release oral tablet (1 source) Proton Pump Inhibitor Start: 10-28-2024 take 1 tablet by mouth twice daily Pantoprazole 40 mg Tablet,Delayed Release (Dr/Ec) Active 40 mg PO TWICE A DAY 60 October 28, 2024 12:00am rosuvastatin calcium 5 mg oral tablet (3 sources) HMG-CoA Reductase Inhibitor Start: 01-18-2023 take 1 tablet by mouth once daily Rosuvastatin 5 mg tablet Active 5 mg PO DAILY 90 January 18, 2023 12:00am sucralfate 1000 mg oral tablet (1 source) Aluminum Complex Start: 10-28-2024 take 1 tablet by mouth 1 hour(s) before mealtime Sucralfate 1 gram Tablet Active 1 g PO ONE HOURS BEFORE MEALS & BED 120 October 28, 2024 12:00am Completed/Discontinued Medications Medication Drug Class(es) Dates Sig (Normalized) Sig (Original) acetaminophen 500 mg oral tablet (8 sources) Start: 08-26-2022 End: 10-25-2024 take 2 tablets by mouth every six hours as needed for pain Acetaminophen 500 mg Tablet Discontinued 1000 mg PO EVERY 6 HOURS NEEDED as needed for Pain Score 1-10 0 August 26, 2022 12:00am October 25, 2024 8:19pm Start: 08-26-2022 take 1000 mg by mout h every six hours as needed Acetaminophen Active 1000 MG PO EVERY 6 HOURS NEEDED 0 August 26, 2022 12:00am atorvastatin 40 mg oral tablet (20 sources) HMG-CoA Reductase Inhibitor Start: 08-23-2022 End: 01-18-2023 take 1 tablet by mouth at bedtime Atorvastatin 40 mg Tablet Discontinued 40 mg PO AT BEDTIME August 26, 2022 12:00am October 06, 2022 5:16pm fluorouracil 50 mg/ml topical cream (11 sources) Nucleoside Metabolic Inhibitor Start: 02-19-2022 Fluorouracil 5 % cream apply to THE NOSE AND RIGHT CHEEK TWICE DAILY FOR 2 WEEKS 0 02/19/2022 Active Comment on above: apply to THE NOSE AN D RIGHT CHEEK TWICE DAILY FOR 2 WEEKS levETIRAcetam 500 mg oral tablet (20 sources) Start: 08-23-2022 End: 10-25-2024 take 1 tablet by mouth twice daily Levetiracetam 500 mg Tablet Discontinued 500 mg PO TWICE A DAY August 26, 2022 12:00am September 15, 2022 9:47am levothyroxine sodium 0.05 mg oral tablet (20 sources) l-Thyroxine Start: 08-23-2022 End: 08-26-2022 take 1 tablet by mouth once daily Levothyroxine 50 mcg tablet Discontinued 50 ug PO DAILY@0600 August 23, 2022 2:25pm August 26, 2022 7:54pm LORazepam 0.5 mg oral tablet (10 sources) Benzodiazepine Start: 08-16-2022 End: 08-26-2022 take 1 tablet by mouth at bedtime as needed for anxiety Lorazepam (Ativan) 0.5 mg Tablet Discontinued 0.5 mg PO AT BEDTIME as needed for Anxiety August 16, 2022 12:00am August 26, 2022 7:54pm Multivitamin preparation (9 sources) Start: 08-16-2022 End: 08-26-2022 multivitamin Discontinued 1 NMA SL/PO DAILY August 16, 2022 12:00am August 26, 2022 7:54pm Start: 08-16-2022 End: 08-26-2022 take 1 tablet by mouth once daily multivitamin Discontinued 1 TAB SL/PO DAILY August 16, 2022 12:00am August 26, 2022 7:54pm Start: 08-16-2022 multivitamin A ctive August 16, 2022 12:00am triamcinolone acetonide 1 mg/ml topical cream (11 sources) Corticosteroid Start: 02-19-2022 triamcinolone acetonide (KENALOG) 0.1 % cream apply to affected area OF THE BODY TWICE DAILY FOR 2 WEEKS THEN H... (REFER TO PRESCRIPTION NOTES). 0 02/19/2022 Active Comment on above: apply to affected ar ea OF THE BODY TWICE DAILY FOR 2 WEEKS THEN H... (REFER TO PRESCRIPTION NOTES). Problems Problem Classification Problem Date Documented Da te Episodic/Chronic Acute cerebrovascular disease (20 sources) Cerebrovascular accident; Translations: [Cerebral infarction, unspecified] 08-23-2022 Chronic Alcohol-related disorders (13 sources) Alcohol abuse; Translations: [Alcohol abuse, uncomplicated] 08-23-2022 Chronic Anxiety disorders (13 sources) Anxiety; Translations: [Anxiety disorder, unspecified] 08-23-2022 Chronic Coagulation and hemorrhagic disorders (3 sources) Thrombocytopenic disorder; Translations: [Thrombocytopenia, unspecified] Onset: 5 10-25-2024 Chronic Deficiency and other anemia (2 sources) Anemia; Translations: [Anemia, unspecified] 10-26-2024 Episodic Deficiency and other anemia (2 sources) Iron deficiency anemia; Translations: [Iron deficiency anemia, unspecified] 10-25-2024 Episodic Deficiency and other anemia (1 source) Iron deficiency anemia, unspecified; Translations: [Iron deficiency anemia, unspecified] Onset: Episodic Deficiency and other anemia (1 source) Anemia, unspecified; Translations: [Anemia, unspecified] Onset: Episodic E Codes: Adverse effects of medical drugs (3 sources) Adverse reaction to drug; Translations: [Adverse effect of unspecified drugs, medicaments and biological substances, initial encounter] Onset: 5 10-25-2024 Episodic Epilepsy; convulsions (20 sources) Seizure disorder; Translations: [Epilepsy, unspecified, not intractable, without status epilepticus] 08-23-2022 Chronic Fluid and electrolyte disorders (18 sources) Hyponatremia; Translations: [Hypo-osmolality and hyponatremia] Onset: 5 08-23-2022 Episodic Gastroduodenal ulcer (except hemorrhage) (3 sources) Peptic ulcer; Translations: [Peptic ulcer, site unspecified, unspecified as acute or chronic, without hemorrhage or perforation] Onset: 5 10-27-2024 Chronic Gastrointestinal hemorrhage (8 sources) Acute gastrointestinal hemorrhage; Translations: [Gastrointestinal hemorrhage, unspecified] Onset: 5 10-25-2024 Episodic Malaise and fatigue (16 sources) Asthenia; Translations: [Other malaise] 08-23-2022 Episodic Open wounds of extremities (4 sources) Open wound of right hand; Translations: [Laceration without foreign body of right hand, initial encounter] 08-03-2023 Episodic Other circulatory disease (2 sources) Orthostatic hypotension; Translations: [Orthostatic hypotension] 10-25-2024 Episodic Other circulatory disease (1 source) Orthostatic hypotension; Translations: [Orthostatic hypotension] Onset: 5 Episodic Other gastrointestinal disorders (1 source) Other fecal abnormalities; Translations: [Other fecal abnormalities] Onset: 5 Episodic Other nervous system disorders (10 sources) Disorder of brain; Translations: [Encephalopathy, unspecified] 08-16-2022 Chronic Other nervous system disorders (12 sources) Encephalopathy, unspecified; Translations: [Encephalopathy, unspecified] 08-16-2022 Chronic Other non-epithelial cancer of skin (1 source) 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, including hip; Translations: [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, including hip] Onset: 5 Episodic Other non-traumatic joint disorders (20 sources) Hip pain; Translations: [Pain in left hip] Onset: 2 Episodic Other non-traumatic joint disorders (1 source) Pain in left hip; Translations: [Pain in left hip] Onset: 2 Episodic Residual codes; unclassified (10 sources) Acute confusion; Translations: [Disorientation, unspecified] 08-16-2022 Episodic Residual codes; unclassified (7 sources) Disorientation, unspecified; Translations: [Delirium due to conditions classified elsewhere] 08-16-2022 Episodic Syncope (3 sources) Syncope and collapse; Translations: [Syncope and collapse] Onset: 5 10-25-2024 Episodic Thyroid disorders (13 sources) Subclinical hypothyroidism; Translations: [Other specified hypothyroidism] 08-23-2022 Chronic Unclassified (1 source) call for appt on Tuesday to be seen for hospital follow-up in 2-4 weeks Results Test Name Value Interpretation Reference Range Facility Absolute lymphocyte countOrd ered By: Laya Crisostomo on 10-28-2024 Lymphocytes Auto (Unsp spec) [#/Vol] 0.87 10*3/uL 0.83-4.51 [facility] Absolute neutrophil countOrd ered By: Laya Crisostomo on 10-28-2024 Neutrophils (Bld) [#/Vol] 6.6 10*3/uL 2.0-7.7 [facility] Anion gap in Serum or Plasma Ordered By: Laya Crisostomo on 10-28-2024 Anion gap [Moles/Vol] 9 mmol/L 5-15 [facility] Automated lymphocyte count a s percentage of total leukocytesOrdered By: Laya Crisostomo on 10-28-2024 Lymphocytes/100 WBC Auto (Unsp spec) 10.2 % Low 19-41 [facility] BUN/creatinine ratioOrdered By: Laya Crisostomo on 10-28-2024 Urea nitrogen/Creatinine [Mass ratio] 37.2 mg/mg High 10-20 [facility] Basic Metabolic Profile (BMP )on 10-28-2024 BUN/CRE 37.2 RATIO High 10-20 [facility] Comment on above: Performed By: #### L 500.4100, L500.4050, L100.0100 #### [facility] [address] [place], [address] Calcium [Mass/Vol] 8.5 mg/dL Normal 7.6-11.0 [facility] Comment on above: Performed By: #### L 500.4100, L500.4050, L100.0100 #### [facility] [address] [place], [address] Chloride [Moles/Vol] 96 mmol/L Low 98-108 [facility] Comment on above: Performed By: #### L 500.4100, L500.4050, L100.0100 #### [facility] [address] [place], [address] CO2 [Moles/Vol] 24.3 mmol/L Normal 21.0-32.0 [facility] Comment on above: Performed By: #### L 500.4100, L500.4050, L100.0100 #### [facility] [address] [place], [address] Creatinine [Mass/Vol] 0.47 mg/dL Low 0.70-1.20 [facility] Comment on above: Performed By: #### L 500.4100, L500.4050, L100.0100 #### [facility] [address] [place], [address] ECRCL 33.09 ml/min Low 50-250 [facility] Comment on above: Performed By: #### L 500.4100, [id number], L100.0100 #### [facility] [address] [place], [address] GAP 9 Normal 5-15 [facility] Comment on above: Performed By: #### L 500.4100, L500.4050, L100.0100 #### [facility] [address] [place], [address] GFR/1.73 sq M.predicted among non-blacks MDRD (S/P/Bld) [Vol rate/Area] 95 mL/min/{1.73_m2} Normal >60 [facility] Comment on above: Result Comment: mL/m in/1.73m2 CKD-EPI Creatinine Equation (2020) Performed By: #### L 500.4100, L500.4050, L100.0100 #### [facility] [address] [place], [address] Glucose [Mass/Vol] 102 mg/dL High 70-99 [facility] Comment on above: Performed By: #### L 500.4100, L500.4050, L100.0100 #### [facility] [address] [place], [address] Potassium [Moles/Vol] 4.3 mmol/L Normal 3.3-5.1 [facility] Comment on above: Performed By: #### L 500.4100, L500.4050, L100.0100 #### [facility] [address] [place], [address] Sodium [Moles/Vol] 130 mmol/L Low 133-145 [facility] Comment on above: Performed By: #### L 500.4100, L500.4050, L100.0100 #### [facility] [address] [place], [address] Urea nitrogen [Mass/Vol] 18 mg/dL Normal 4-19 [facility] Comment on above: Performed By: #### L 500.4100, L500.4050, L100.0100 #### [facility] [address] [place], [address] Basophil percentageOrdered B y: Laya Crisostomo on 10-28-2024 Basophils/100 WBC (Bld) 0.4 % 0-1 [facility] CBC W/Diff, Automatedon 10-05 Absolute Lymph 0.87 X10 3/uL Normal 0.83-4.51 [facility] Comment on above: Performed By: #### L 500.4100, L500.4050, L100.0100 #### [facility] [address] [place], [address] Absolute Neut 6.6 X10 3/uL Normal 2.0-7.7 [facility] Comment on above: Performed By: #### L 500.4100, L500.4050, L100.0100 #### [facility] [address] [place], [address] Basophils/100 WBC (Bld) 0.4 % Normal 0-1 [facility] Comment on above: Performed By: #### L 500.4100, [id number], L100.0100 #### [facility] [address] [place], [address] Eosinophils/100 WBC (Bld) 2.3 % Normal 0-5 [facility] Comment on above: Performed By: #### L 500.4100, L500.4050, L100.0100 #### [facility] [address] [place], [address] Erythrocyte distribution width (RBC) [Ratio] 13.7 % Normal 11.6-14.6 [facility] Comment on above: Performed By: #### L 500.4100, L500.4050, L100.0100 #### [facility] [address] [place], [address] Hematocrit (Bld) [Volume fraction] 35.2 % Low 37-47 [facility] Comment on above: Performed By: #### L 500.4100, L500.4050, L100.0100 #### [facility] [address] [place], [address] Hemoglobin (Bld) [Mass/Vol] 12.3 g/dL Normal 12.0-15.0 [facility] Comment on above: Performed By: #### L 500.4100, L500.4050, L100.0100 #### [facility] [address] [place], [address] IG% 0.200 Normal 0.0-0.9 [facility] Comment on above: Result Comment: IG% - Immature Granulocytes (promyelocytes, myelocytes and metamyelocytes) > 1% indicates that a LEFT SHIFT is Present. Performed By: #### L 500.4100, L500.4050, L100.0100 #### [facility] [address] [place], [address] Lymphocytes/100 WBC (Bld) 10.2 % Low 19-41 [facility] Comment on above: Performed By: #### L 500.4100, L500.4050, L100.0100 #### [facility] [address] [place], [address] MCH (RBC) [Entitic mass] 31.3 pg Normal 27.0-32.0 [facility] Comment on above: Performed By: #### L 500.4100, L500.4050, L100.0100 #### [facility] [address] [place], [address] MCHC (RBC) [Mass/Vol] 34.9 g/dL Normal 32-36 [facility] Comment on above: Performed By: #### L 500.4100, L500.4050, L100.0100 #### [facility] [address] [place], [address] MCV (RBC) [Entitic vol] 89.6 fL Normal 81-99 [facility] Comment on above: Performed By: #### L 500.4100, L500.4050, L100.0100 #### [facility] [address] [place], [address] Monocytes/100 WBC (Bld) 10.1 % High 0-10 [facility] Comment on above: Performed By: #### L 500.4100, L500.4050, L100.0100 #### [facility] [address] [place], [address] Neutrophils/100 WBC (Bld) 76.8 % High 47-70 [facility] Comment on above: Performed By: #### L 500.4100, L500.4050, L100.0100 #### [facility] [address] [place], [address] Nucleated RBC (Bld) [#/Vol] 0 10*3/uL Normal 0-5 [facility] Comment on above: Performed By: #### L 500.4100, L500.4050, L100.0100 #### [facility] [address] [place], [address] Platelet mean volume (Bld) [Entitic vol] 10.9 fL Normal 6.2-12.0 [facility] Comment on above: Performed By: #### L 500.4100, L500.4050, L100.0100 #### [facility] [address] [place], [address] Platelets (Bld) [#/Vol] 105 10*3/uL Low 150-450 [facility] Comment on above: Performed By: #### L 500.4100, L500.4050, L100.0100 #### [facility] [address] [place], [address] RBC (Bld) [#/Vol] 3.93 10*6/uL Low 4.2-5.4 [facility] Comment on above: Performed By: #### L 500.4100, L500.4050, L100.0100 #### [facility] [address] [place], [address] RDW SD 45.0 fl High 35.1-43.9 [facility] Comment on above: Performed By: #### L 500.4100, L500.4050, L100.0100 #### [facility] [address] [place], [address] WBC (Bld) [#/Vol] 8.5 10*3/uL Normal 4.4-11.0 [facility] Comment on above: Performed By: #### L 500.4100, L500.4050, L100.0100 #### [facility] [address] [place], [address] Carbon dioxide, total [Moles /volume] in Central venous bloodOrdered By: Laya Crisostomo on 10-28-2024 CO2 [Moles/Vol] 24.3 mmol/L 21.0-32.0 [facility] Chloride assayOrdered By: Mario Crisostomo on 10-28-2024 Chloride [Moles/Vol] 96 mmol/L Low 98-108 [facility] Eosinophil percentageOrdered By: Laya Crisostomo on 10-28-2024 Eosinophils/100 WBC (Bld) 2.3 % 0-5 [facility] Erythrocyte distribution wid th ratioOrdered By: Laya Crisostomo on 10-28-2024 Erythrocyte distribution width (RBC) [Ratio] 13.7 % 11.6-14.6 [facility] Erythrocyte distribution wid th standard deviationOrdered By: Laya Crisostomo on 10-28-2024 Erythrocyte distribution width (RBC) [Ratio] 45.0 fl High 35.1-43.9 [facility] Glomerular filtration rate ( GFR) estimation/1.73 sq m using serum, plasma, or whole bOrdered By: Laya Crisostomo on 10-28-2024 GFR/1.73 sq M.predicted among non-blacks MDRD (S/P/Bld) [Vol rate/Area] 95 mL/min/{1.73_m2} >60 [facility] Comment on above: mL/min/1.73m2 CKD-EP I Creatinine Equation (2020) Hematocrit Auto (Bld) [Volum e fraction]Ordered By: Laya Crisostomo on 10-28-2024 Hematocrit (Bld) [Volume fraction] 35.2 % Low 37-47 [facility] Hemoglobin measurementOrdere d By: Laya Crisostomo on 10-28-2024 Hemoglobin (Bld) [Mass/Vol] 12.3 g/dL 12.0-15.0 [facility] Immature granulocytes/100 WB C Auto (Bld)Ordered By: Laya Crisostomo on 10-28-2024 Immature granulocytes/100 WBC (Bld) 0.200 % 0.0-0.9 [facility] Comment on above: IG% - Immature Granu locytes (promyelocytes, myelocytes and metamyelocytes) > 1% indicates that a LEFT SHIFT is Present. MCV (mean corpuscular volume ) determinationOrdered By: Laya Crisostomo on 10-28-2024 MCV (RBC) [Entitic vol] 89.6 fL 81-99 [facility] Magnesiumon 10-28-2024 Magnesium [Mass/Vol] 2.0 mg/dL Normal 1.5-2.2 [facility] Comment on above: Performed By: #### L 500.4100, L500.4050, L100.0100 #### [facility] [place], [address] Magnesium measurement (mass/ volume)Ordered By: Laya Crisostomo on 10-28-2024 Magnesium (Unsp spec) [Mass/Vol] 2.0 mg/dL 1.5-2.2 [facility] Mean corpuscular hemoglobin (MCH) determinationOrdered By: Laya Crisostomo on 10-28-2024 MCH (RBC) [Entitic mass] 31.3 pg 27.0-32.0 [facility] Mean corpuscular hemoglobin concentration (MCHC) determinationOrdered By: Laya Crisostomo on 10-28-2024 MCHC (RBC) [Mass/Vol] 34.9 g/dL 32-36 [facility] Mean platelet volume determi nationOrdered By: Laya Crisostomo on 10-28-2024 Platelet mean volume (Bld) [Entitic vol] 10.9 fL 6.2-12.0 [facility] Monocyte percentageOrdered B y: Laya Crisostomo on 10-28-2024 Monocytes/100 WBC (Bld) 10.1 % High 0-10 [facility] Neutrophil percentageOrdered By: Laya Crisostomo on 10-28-2024 Neutrophils/100 WBC (Bld) 76.8 % High 47-70 [facility] Nucleated red blood cell per centageOrdered By: Laya Crisostomo on 10-28-2024 Nucleated RBC/100 WBC (Bld) [Ratio] 0 % 0-5 [facility] Platelet countOrdered By: Mario Crisostomo on 10-28-2024 Platelets (Bld) [#/Vol] 105 10*3/uL Low 150-450 [facility] Potassium measurement (mass/ volume)Ordered By: Laya Crisostomo on 05-25-2025 Potassium (Unsp spec) [Mass/Vol] 4.3 mmol/L 3.3-5.1 [facility] RBC Auto (Bld) [#/Vol]Ordere d By: Laya Crisostomo on 10-28-2024 RBC (Bld) [#/Vol] 3.93 10*6/uL Low 4.2-5.4 [facility] Serum creatinine measurement (mass/volume)Ordered By: Laya Crisostomo on 10-28-2024 Creatinine [Mass/Vol] 0.47 mg/dL Low 0.70-1.20 [facility] Serum glucose measurement (m ass/volume)Ordered By: Laya Crisostomo on 10-28-2024 Glucose [Mass/Vol] 102 mg/dL High 70-99 [facility] Serum or plasma calcium odalys urement (mass/volume)Ordered By: Laya Crisostomo on 10-28-2024 Calcium [Mass/Vol] 8.5 mg/dL 7.6-11.0 [facility] Serum or plasma urea nitroge n measurement (mass/volume)Ordered By: Laya Crisostomo on 10-28-2024 Urea nitrogen [Mass/Vol] 18 mg/dL 4-19 [facility] Sodium levelOrdered By: Vickie Crisostomo on 10-28-2024 Sodium [Moles/Vol] 130 mmol/L Low 133-145 [facility] White blood cell (WBC) count Ordered By: Laya Crisostomo on 10-28-2024 WBC (Bld) [#/Vol] 8.5 10*3/uL 4.4-11.0 [facility] Bilirubin, totalOrdered By: Laya Crisostomo on 10-27-2024 Bilirubin [Mass/Vol] 0.93 mg/dL 0.00-1.30 [facility] CBC W/Diff, Automatedon 10-05 Absolute Lymph 0.52 X10 3/uL Low 0.83-4.51 [facility] Comment on above: Performed By: #### L 501.2300, L500.3400, L500.4050, L100.0100 #### [facility] [address] [place], [address] Absolute Neut 11.6 X10 3/uL High 2.0-7.7 [facility] Comment on above: Performed By: #### L 501.2300, L500.3400, L500.4050, L100.0100 #### [facility] [address] [place], [address] Basophils/100 WBC (Bld) 0.4 % Normal 0-1 [facility] Comment on above: Performed By: #### L 501.2300, L500.3400, L500.4050, L100.0100 #### [facility] [address] [place], [address] Eosinophils/100 WBC (Bld) 0.5 % Normal 0-5 [facility] Comment on above: Performed By: #### L 501.2300, L500.3400, L500.4050, L100.0100 #### [facility] [address] [place], [address] Erythrocyte distribution width (RBC) [Ratio] 14.0 % Normal 11.6-14.6 [facility] Comment on above: Performed By: #### L 501.2300, L500.3400, L500.4050, L100.0100 #### [facility] [address] [place], [address] Hematocrit (Bld) [Volume fraction] 35.2 % Low 37-47 [facility] Comment on above: Performed By: #### L 501.2300, L500.3400, L500.4050, L100.0100 #### [facility] [address] [place], [address] Hemoglobin (Bld) [Mass/Vol] 12.6 g/dL Normal 12.0-15.0 [facility] Comment on above: Performed By: #### L 501.2300, L500.3400, L500.4050, L100.0100 #### [facility] [address] [place], [address] IG% 0.400 Normal 0.0-0.9 [facility] Comment on above: Result Comment: IG% - Immature Granulocytes (promyelocytes, myelocytes and metamyelocytes) > 1% indicates that a LEFT SHIFT is Present. Performed By: #### L 501.2300, L500.3400, L500.4050, L100.0100 #### [facility] [address] [place], [address] Lymphocytes/100 WBC (Bld) 3.9 % Low 19-41 [facility] Comment on above: Performed By: #### L 501.2300, L500.3400, L500.4050, L100.0100 #### [facility] [address] [place], [address] MCH (RBC) [Entitic mass] 31.6 pg Normal 27.0-32.0 [facility] Comment on above: Performed By: #### L 501.2300, L500.3400, L500.4050, L100.0100 #### [facility] [address] [place], [address] MCHC (RBC) [Mass/Vol] 35.8 g/dL Normal 32-36 [facility] Comment on above: Performed By: #### L 501.2300, L500.3400, L500.4050, L100.0100 #### [facility] [address] [place], [address] MCV (RBC) [Entitic vol] 88.2 fL Normal 81-99 [facility] Comment on above: Performed By: #### L 501.2300, L500.3400, L500.4050, L100.0100 #### [facility] [address] [place], [address] Monocytes/100 WBC (Bld) 7.3 % Normal 0-10 [facility] Comment on above: Performed By: #### L 501.2300, L500.3400, L500.4050, L100.0100 #### [facility] [address] [place], [address] Neutrophils/100 WBC (Bld) 87.5 % High 47-70 [facility] Comment on above: Performed By: #### L 501.2300, L500.3400, L500.4050, L100.0100 #### [facility] [address] [place], [address] Nucleated RBC (Bld) [#/Vol] 0 10*3/uL Normal 0-5 [facility] Comment on above: Performed By: #### L 501.2300, L500.3400, L500.4050, L100.0100 #### [facility] [address] [place], [address] Platelet mean volume (Bld) [Entitic vol] 10.4 fL Normal 6.2-12.0 [facility] Comment on above: Performed By: #### L 501.2300, L500.3400, L500.4050, L100.0100 #### [facility] [address] [place], [address] Platelets (Bld) [#/Vol] 104 10*3/uL Low 150-450 [facility] Comment on above: Performed By: #### L 501.2300, L500.3400, L500.4050, L100.0100 #### [facility] [address] [place], [address] RBC (Bld) [#/Vol] 3.99 10*6/uL Low 4.2-5.4 [facility] Comment on above: Performed By: #### L 501.2300, L500.3400, L500.4050, L100.0100 #### [facility] [address] [place], [address] RDW SD 45.1 fl High 35.1-43.9 [facility] Comment on above: Performed By: #### L 501.2300, L500.3400, L500.4050, L100.0100 #### [facility] [address] [place], [address] WBC (Bld) [#/Vol] 13.3 10*3/uL High 4.4-11.0 [facility] Comment on above: Performed By: #### L 501.2300, L500.3400, L500.4050, L100.0100 #### [facility] [address] [place], [address] Comprehensive Metabolic Prof [facility] 10-27-2024 Albumin [Mass/Vol] 3.5 g/dL Normal 3.4-4.8 [facility] Comment on above: Performed By: #### L 501.2300, L501.5200, L500.4050 #### [facility] [address] [place], [address] Albumin/Globulin [Mass ratio] 2.2 {ratio} Normal 0.9-2.4 [facility] Comment on above: Performed By: #### L 501.2300, L501.5200, L500.4050 #### [facility] [address] [place], [address] ALK PHOS 67 U/L Normal 35-104 [facility] Comment on above: Performed By: #### L 501.2300, L501.5200, L500.4050 #### [facility] [address] [place], [address] ALT [Catalytic activity/Vol] 29 U/L Normal <=34 [facility] Comment on above: Performed By: #### L 501.2300, L501.5200, L500.4050 #### [facility] [address] [place], [address] AST [Catalytic activity/Vol] 34 U/L High <=31 [facility] Comment on above: Performed By: #### L 501.2300, L501.5200, L500.4050 #### [facility] [address] [place], [address] Bilirubin [Mass/Vol] 0.93 mg/dL Normal 0.00-1.30 [facility] Comment on above: Performed By: #### L 501.2300, L501.5200, L500.4050 #### [facility] [address] [place], [address] BUN/CRE 25.3 RATIO High 10-20 [facility] Comment on above: Performed By: #### L 501.2300, L501.5200, L500.4050 #### [facility] [address] [place], [address] Calcium [Mass/Vol] 7.8 mg/dL Normal 7.6-11.0 [facility] Comment on above: Performed By: #### L 501.2300, L501.5200, L500.4050 #### [facility] [address] [place], [address] Chloride [Moles/Vol] 90 mmol/L Low 98-108 [facility] Comment on above: Performed By: #### L 501.2300, L501.5200, L500.4050 #### [facility] [address] [place], [address] CO2 [Moles/Vol] 25.1 mmol/L Normal 21.0-32.0 [facility] Comment on above: Performed By: #### L 501.2300, L501.5200, L500.4050 #### [facility] [address] [place], [address] Creatinine [Mass/Vol] 0.31 mg/dL Low 0.70-1.20 [facility] Comment on above: Performed By: #### L 501.2300, L501.5200, L500.4050 #### [facility] [address] [place], [address] ECRCL 33.09 ml/min Low 50-250 [facility] Comment on above: Performed By: #### L 501.2300, L501.5200, L500.4050 #### [facility] [address] [place], [address] GAP 10 Normal 5-15 [facility] Comment on above: Performed By: #### L 501.2300, L501.5200, L500.4050 #### [facility] [address] [place], [address] GFR/1.73 sq M.predicted among non-blacks MDRD (S/P/Bld) [Vol rate/Area] 105 mL/min/{1.73_m2} Normal >60 [facility] Comment on above: Result Comment: mL/m in/1.73m2 CKD-EPI Creatinine Equation (2020) Performed By: #### L 501.2300, L501.5200, L500.4050 #### [facility] [address] [place], [address] Globulin (S) [Mass/Vol] 1.6 g/dL Low 2.2-4.2 [facility] Comment on above: Performed By: #### L 501.2300, L501.5200, L500.4050 #### [facility] [address] [place], [address] Glucose [Mass/Vol] 115 mg/dL High 70-99 [facility] Comment on above: Performed By: #### L 501.2300, L501.5200, L500.4050 #### [facility] [address] [place], [address] Potassium [Moles/Vol] 3.2 mmol/L Low 3.3-5.1 [facility] Comment on above: Performed By: #### L 501.2300, L501.5200, L500.4050 #### [facility] [address] [place], [address] Sodium [Moles/Vol] 125 mmol/L Low 133-145 [facility] Comment on above: Performed By: #### L 501.2300, L501.5200, L500.4050 #### [facility] [address] [place], [address] T PROT 5.1 g/dL Low 5.9-8.4 [facility] Comment on above: Performed By: #### L 501.2300, L501.5200, L500.4050 #### [facility] [address] [place] [place], [address] Urea nitrogen [Mass/Vol] 8 mg/dL Normal 4-19 [facility] Comment on above: Performed By: #### L 501.2300, L501.5200, L500.4050 #### [facility] [address] [place], [address] Laboratory - Chemistry and C hemistry - challengeOrdered By: Laya Crisostomo on 10-27-2024 AST [Catalytic activity/Vol] 34 U/L High <32 [facility] Magnesiumon 10-27-2024 Magnesium [Mass/Vol] 1.7 mg/dL Normal 1.5-2.2 [facility] Comment on above: Performed By: #### L 501.2300, L500.3400, L500.4050, L100.0100 #### [facility] [address] [place], [address] Phosphoruson 10-27-2024 Phosphate [Mass/Vol] 3.1 mg/dL Normal 2.7-4.5 [facility] Comment on above: Performed By: #### L 501.2300, L501.5200, L500.4050 #### [facility] [address] [place], [address] Serum globulin measurementOr dered By: Laya Crisostomo on 10-27-2024 Globulin (S) [Mass/Vol] 1.6 g/dL Low 2.2-4.2 [facility] Serum or plasma alanine de la torre otransferase (ALT) measurementOrdered By: Laya Crisostomo on 10-27-2024 ALT [Catalytic activity/Vol] 29 U/L <35 [facility] Serum or plasma albumin odalys urement (mass/volume)Ordered By: Laya Crisostomo on 10-27-2024 Albumin [Mass/Vol] 3.5 g/dL 3.4-4.8 [facility] Serum or plasma albumin/glob ulin mass ratioOrdered By: Laya Crisostomo on 10-27-2024 Albumin/Globulin [Mass ratio] 2.2 {ratio} 0.9-2.4 [facility] Serum or plasma alkaline kevin sphatase measurementOrdered By: Laya Crisostomo on 10-27-2024 ALP [Catalytic activity/Vol] 67 U/L 35-104 [facility] Total proteinOrdered By: Farida Crisostomo on 10-27-2024 Protein [Mass/Vol] 5.1 g/dL Low 5.9-8.4 [facility] Activated partial thrombopla stin time (aPTT) in platelet poor plasma by coagulation aOrdered By: Jordi Chahal on 10-26-2024 aPTT Coag (PPP) [Time] 27.9 s 24.1-36.2 [facility] Bedside Glucoseon 10-26-2024 FINGERSTICK GLU 106 mg/dL Normal 74-106 [facility] Comment on above: Result Comment: NEFTALI GEMENT OF PATIENT CARE PER NURSING PROTOCOL Performed By: #### L 501.2300, L500.3400, L500.4050, L100.0100 #### [facility] [address] [place], [address] Bilirubin Test strip Ql (U)O rdered By: Pastor Iverson on 10-26-2024 Bilirubin Ql (U) Negative Negative [facility] Bilirubin directOrdered By: Jordi Chahal on 10-26-2024 Bilirubin.direct [Mass/Vol] 0.17 mg/dL 0.00-0.30 [facility] CBC W/Diff, Automatedon 05- Absolute Lymph 0.77 X10 3/uL Low 0.83-4.51 [facility] Comment on above: Performed By: #### L 501.2300, L500.3400, L500.4050, L100.0100 #### [facility] [address] [place], [address] Absolute Neut 2.0 X10 3/uL Normal 2.0-7.7 [facility] Comment on above: Performed By: #### L 501.2300, L500.3400, L500.4050, L100.0100 #### [facility] [address] [place], [address] Basophils/100 WBC (Bld) 1.2 % High 0-1 [facility] Comment on above: Performed By: #### L 501.2300, L500.3400, L500.4050, L100.0100 #### [facility] [address] [place], [address] Eosinophils/100 WBC (Bld) 1.5 % Normal 0-5 [facility] Comment on above: Performed By: #### L 501.2300, L500.3400, L500.4050, L100.0100 #### [facility] [address] [place], [address] Erythrocyte distribution width (RBC) [Ratio] 12.0 % Normal 11.6-14.6 [facility] Comment on above: Performed By: #### L 501.2300, L500.3400, L500.4050, L100.0100 #### [facility] [address] [place], [address] Hematocrit (Bld) [Volume fraction] 24.7 % Low 37-47 [facility] Comment on above: Performed By: #### L 501.2300, L500.3400, L500.4050, L100.0100 #### [facility] [address] [place], [address] Hemoglobin (Bld) [Mass/Vol] 8.4 g/dL Low 12.0-15.0 [facility] Comment on above: Performed By: #### L 501.2300, L500.3400, L500.4050, L100.0100 #### [facility] [address] [place], [address] IG% 0.300 Normal 0.0-0.9 [facility] Comment on above: Result Comment: IG% - Immature Granulocytes (promyelocytes, myelocytes and metamyelocytes) > 1% indicates that a LEFT SHIFT is Present. Performed By: #### L 501.2300, L500.3400, L500.4050, L100.0100 #### [facility] [address] [place], [address] Lymphocytes/100 WBC (Bld) 23.4 % Normal 19-41 [facility] Comment on above: Performed By: #### L 501.2300, L500.3400, L500.4050, L100.0100 #### [facility] [address] [place], [address] MCH (RBC) [Entitic mass] 31.8 pg Normal 27.0-32.0 [facility] Comment on above: Performed By: #### L 501.2300, L500.3400, L500.4050, L100.0100 #### [facility] [address] [place], [address] MCHC (RBC) [Mass/Vol] 34.0 g/dL Normal 32-36 [facility] Comment on above: Performed By: #### L 501.2300, L500.3400, L500.4050, L100.0100 #### [facility] [address] [place], [address] MCV (RBC) [Entitic vol] 93.6 fL Normal 81-99 [facility] Comment on above: Performed By: #### L 501.2300, L500.3400, L500.4050, L100.0100 #### [facility] [address] [place], [address] Monocytes/100 WBC (Bld) 14.0 % High 0-10 [facility] Comment on above: Performed By: #### L 501.2300, L500.3400, L500.4050, L100.0100 #### [facility] [address] [place], [address] Neutrophils/100 WBC (Bld) 59.6 % Normal 47-70 [facility] Comment on above: Performed By: #### L 501.2300, L500.3400, L500.4050, L100.0100 #### [facility] [address] [place], [address] Nucleated RBC (Bld) [#/Vol] 0 10*3/uL Normal 0-5 [facility] Comment on above: Performed By: #### L 501.2300, L500.3400, L500.4050, L100.0100 #### [facility] [address] [place], [address] Platelet mean volume (Bld) [Entitic vol] 10.6 fL Normal 6.2-12.0 [facility] Comment on above: Performed By: #### L 501.2300, L500.3400, L500.4050, L100.0100 #### [facility] [address] [place], [address] Platelets (Bld) [#/Vol] 118 10*3/uL Low 150-450 [facility] Comment on above: Performed By: #### L 501.2300, L500.3400, L500.4050, L100.0100 #### [facility] [address] [place], [address] RBC (Bld) [#/Vol] 2.64 10*6/uL Low 4.2-5.4 [facility] Comment on above: Performed By: #### L 501.2300, L500.3400, L500.4050, L100.0100 #### [facility] [address] [place], [address] RDW SD 40.8 fl Normal 35.1-43.9 [facility] Comment on above: Performed By: #### L 501.2300, L500.3400, L500.4050, L100.0100 #### [facility] [address] [place], [address] WBC (Bld) [#/Vol] 3.3 10*3/uL Low 4.4-11.0 [facility] Comment on above: Performed By: #### L 501.2300, L500.3400, L500.4050, L100.0100 #### [facility] [address] [place], [address] Comprehensive Metabolic Prof [facility] 10-26-2024 Albumin/Globulin [Mass ratio] 2.5 {ratio} High 0.9-2.4 [facility] Comment on above: Performed By: #### L 501.2300, L500.3400, L500.4050, L100.0100 #### [facility] [address] [place], [address] BUN/CRE 66.2 RATIO High 10-20 [facility] Comment on above: Performed By: #### L 501.2300, L500.3400, L500.4050, L100.0100 #### [facility] [address] [place], [address] Calcium [Mass/Vol] 7.7 mg/dL Normal 7.6-11.0 [facility] Comment on above: Performed By: #### L 501.2300, L500.3400, L500.4050, L100.0100 #### [facility] [address] [place], [address] Chloride [Moles/Vol] 96 mmol/L Low 98-108 [facility] Comment on above: Performed By: #### L 501.2300, L500.3400, L500.4050, L100.0100 #### [facility] [address] [place], [address] CO2 [Moles/Vol] 25.5 mmol/L Normal 21.0-32.0 [facility] Comment on above: Performed By: #### L 501.2300, L500.3400, L500.4050, L100.0100 #### [facility] [address] [place], [address] Creatinine [Mass/Vol] 0.33 mg/dL Low 0.70-1.20 [facility] Comment on above: Performed By: #### L 501.2300, L500.3400, L500.4050, L100.0100 #### [facility] [address] [place], [address] ECRCL 34.39 ml/min Low 50-250 [facility] Comment on above: Performed By: #### L 501.2300, L500.3400, L500.4050, L100.0100 #### [facility] [address] [place], [address] GAP 8 Normal 5-15 [facility] Comment on above: Performed By: #### L 501.2300, L500.3400, L500.4050, L100.0100 #### [facility] [address] [place], [address] GFR/1.73 sq M.predicted among non-blacks MDRD (S/P/Bld) [Vol rate/Area] 104 mL/min/{1.73_m2} Normal >60 [facility] Comment on above: Result Comment: mL/m in/1.73m2 CKD-EPI Creatinine Equation (2020) Performed By: #### L 501.2300, L500.3400, L500.4050, L100.0100 #### [facility] [address] [place], [address] Glucose [Mass/Vol] 90 mg/dL Normal 70-99 [facility] Comment on above: Performed By: #### L 501.2300, L500.3400, L500.4050, L100.0100 #### [facility] [address] [place], [address] Potassium [Moles/Vol] 3.8 mmol/L Normal 3.3-5.1 [facility] Comment on above: Performed By: #### L 501.2300, L500.3400, L500.4050, L100.0100 #### [facility] [address] [place], [address] Sodium [Moles/Vol] 130 mmol/L Low 133-145 [facility] Comment on above: Performed By: #### L 501.2300, L500.3400, L500.4050, L100.0100 #### [facility] [address] [place], [address] Urea nitrogen [Mass/Vol] 22 mg/dL High 4-19 [facility] Comment on above: Performed By: #### L 501.2300, L500.3400, L500.4050, L100.0100 #### [facility] [address] [place], [address] EGD Reporton 10-26-2024 EGD Report [facility] Medical Records Department [address] [place] [address] EGD Report MR#: [id number] Acct: [id number] Name: NURSE,RADHA OBRIEN Rep #: [id number] : 1945 79 From: Aurelio Rivera DO PCP: Dr. Jamal Johns MD Status:ADM IN Patient Name: Radha Nurse Procedure Date: 10/26/2024 4:09 PM Date of : 1945 Age: 79 Procedure: Upper GI endoscopy Indications: Epigastric abdominal pain, Hematemesis, Melena Providers: Aurelio Rivera DO Referring MD: Terrance Oswald MD Medicines: Monitored Anesthesia Care Patient Profile: This is an 79 year old female. Refer to note in patient chart for documentation of history and physical. Patient has symptoms of acute epigastric abdominal pain. Complications: No immediate complications. Procedure: Pre-Anesthesia Assessment: - Prior to the procedure, a History and Physical was performed, and patient medications and allergies were reviewed. The patient is competent. The risks and benefits of the procedure and the sedation options and risks were discussed with the patient. All questions were answered and informed consent was obtained. Patient identification and proposed procedure were verified by the physician in the pre-procedure area. Mental Status Examination: alert and oriented. Airway Examination: normal oropharyngeal airway and neck mobility. Respiratory Examination: clear to auscultation. CV Examination: normal. Prophylactic Antibiotics: The patient does not require prophylactic antibiotics. Prior Anticoagulants: The patient has taken no anticoagulant or antiplatelet agents except for NSAID medication. ASA Grade Assessment: II - A patient with mild systemic disease. After reviewing the risks and benefits, the patient was deemed in satisfactory condition to undergo the procedure. The anesthesia plan was to use monitored anesthesia care (MAC). Immediately prior to administration of medications, the patient was re-assessed for adequacy to receive sedatives. The heart rate, respiratory rate, oxygen saturations, blood pressure, adequacy of pulmonary ventilation, and response to care were monitored throughout the procedure. The physical status of the patient was re-assessed after the procedure. After obtaining informed consent, the endoscope was passed under direct vision. Throughout the procedure, the patient's blood pressure, pulse, and oxygen saturations were monitored continuously. The Endoscope was introduced through the mouth, and advanced to the fourth part of the duodenum. Small bowel enteroscopy was deemed necessary. The upper GI endoscopy was accomplished without difficulty. The patient tolerated the procedure well. Scope In: 4:18:10 PM Scope Out: 4:27:10 PM Total Procedure Duration Time 0 hours 9 minutes 0 seconds Findings: The examined esophagus was normal. One oozing cratered gastric ulcer with a visible vessel was found in the gastric antrum. The lesion was 22 mm in largest dimension. Coagulation for hemostasis using heater probe was successful. Estimated blood loss was minimal. One non-bleeding cratered gastric ulcer with adherent clot was found in the prepyloric region of the stomach. The lesion was 10 mm in largest dimension. To stop active bleeding, one hemostatic clip was successfully placed. Clip drywall taper helper: [employer]. There was no bleeding at the end of the procedure. No gross lesions were noted in the entire examined duodenum. Impression: - Normal esophagus. - Oozing gastric ulcer with a visible vessel. Treated with a heater probe. - Non-bleeding gastric ulcer with adherent clot. Clip was placed. Clip drywall taper helper: [employer]. - No gross lesions in the entire examined duodenum. - No specimens collected. Recommendation: - Return patient to [facility] for [facility] care. - Clear liquid diet today. - Continue present medications. - Use Protonix (pantoprazole) 40 mg PO BID. - Use sucralfate tablets 1 gram PO QID for 1 month. Procedure Code(s): --- Professional --- 66186, Small intestinal endoscopy, enteroscopy beyond second portion of duodenum, not including ileum; with control of bleeding (eg, injection, bipolar cautery, unipolar cautery, laser, heater probe, stapler, plasma inspector returned materials) CPT copyright 2021 [employer]. All rights reserved. The codes documented in this report are preliminary and upon records specialist review may be revised to meet current compliance requirements. Aurelio Rivera DO 10/26/2024 4:31:55 PM This report has been signed electronically. Number of Addenda: 0 Note Initiated On: 10/26/2024 4:09 PM 10/26/24 1632 Date Aurelio Nicole Hernándezrahkapil Signature: Date (if indicated) CC: (more content not included)... Normal [facility] Echocardiogram study reportO rdered By: Onesimo Samayoa on 10-26-2024 Study report [facility] [address] [place] [address] Echo Complete 10/26/24 0834 MR#: [id number] Acct: [id number] Name: NURSE,RADHA OBRIEN Rep #:[id number] : 1945 79 From: Onesimo he MD Attending Dr: DO Keven Macdonald tatus: ADM IN Ordering Dr: Pastor Hernandez DO Date: 10/25/24 Location: [facility] Sex: F C Admitted: 10/25/24 Reason For Study Reason For Study: SYNCOPE/NEAR SYNCOPE Procedure This was a 2D Doppler, Color Flow transthoracic echocardiogram. The study was technically difficult. Due to body habitus. Exam performed portable in patient room. Left Ventricle Normal LV size. The estimated ejection fraction is 65 %. No evidence for diastolic dysfunction. No regional wall motion abnormalities noted. Right Ventricle Normal RV size. Normal systolic function. Atria There is mild biatrial dilatation. No doppler evidence for ASD. Mitral Valve There is moderate mitral annular calcification. There is no mitral valve stenosis. No mitral valve insufficiency. Tricuspid Valve There is no tricuspid stenosis. Trivial tricuspid valve insufficiency. Pulmonaryartery systolic pressure is 40 mmHg. Aortic Valve Trisinus/trileaflet aortic valve. There is no aortic stenosis. No aortic valve insufficiency. Pulmonic Valve There is no pulmonic valvular stenosis. No pulmonic valve insufficiency. Great Vessels Normal sized aortic root. Pericardium/Pleural No pericardial effusion. MMode/2D Measurements & Calculations LVIDd: 3.9 cm IVSd: 1.1 cm Aoroot diam: 3.8 cm LVIDs: 2.3 cm LVPWd: 1.1 cm RVDd: 4.0 cm FS: 42.3 % LVAd ap4: 19.3 cm2 LVAd ap2: 15.2 cm2 SV(MOD-sp4): 31.1 ml LVLd ap4: 6.1 cm LVLd ap2: 5.6 cm SI(MOD-sp4): 21.7 ml/m2 EDV(MOD-sp4): 50.9 ml EDV(MOD-sp2): 33.7 ml EDV(sp4-el): 51.6 ml EDV(sp2-el): 34.8 ml LVAs ap4: 10.6 cm2 LVAs ap2: 7.6 cm2 LVLs ap4: 5.0 cm LVLs ap2: 4.6 cm ESV(MOD-sp4): 19.8 ml ESV(MOD-sp2): 11.6 ml ESV(sp4-el): 19.2 ml ESV(sp2-el): 10.7 ml EF(MOD-sp4): 61.1 % EF(MOD-sp2): 65.7 % EF(sp4-el): 62.7 % SV(MOD-sp2): 22.2 ml SV(sp4-el): 32.4 ml LAdimension(2D): 3.9 cm SI(MOD-sp2): 15.5 ml/m2 TAPSE: 3.1 cm Time Measurements MV dec time: 0.20 sec Doppler Measurements & Calculations MV E max jhoan: 92.7 cm/sec Lat Peak E' Jhoan: 8.4 cm/sec Med Peak E' Jhoan: 9.3 cm/sec MV A max jhoan: 144.7 cm/sec E/E' lat: 11.1 E/E' med: 10.0 MV E/A: 0.64 MV V2 max: 162.3 cm/sec MV P1/2t max jhoan: 117.0 cm/sec Ao V2 max: 123.1 cm/sec MV max P.5 mmHg MV P1/2t: 59.8 msec Ao max P.1 mmHg MV V2 mean: 95.0 cm/sec MV dec slope: 573.5 cm/sec2 Ao V2 mean: 89.6 cm/sec MV mean P.9 mmHg Ao mean P.5 mmHg MV V2 VTI: 25.7 cm MVA(P1/2t): 3.7 cm2 Ao V2 VTI: 27.4 cm AV (velocity ratio): 0.81 LV V1 max: 94.7 cm/sec PA V2 max: 99.1 cm/sec TR max jhoan: 288.3 cm/sec LV V1 max P.6 mmHg PA V2 mean: 68.2 cm/sec TR max P.2 mmHg LV V1 mean P.3 mmHg LV V1 mean: 73.0 cm/sec LV V1 VTI: 22.1 cm ECHO/Echo Complete Interpretation Summary The estimated ejection fraction is 65 %. No evidence for diastolic dysfunction. There is mild biatrial dilatation. Ordering Physician: Pastor Hernandez Referring Physician: Jamal Johns Performed By: Sandra Pinto, PADMACS, RVT 10/26/24 1250 Date _ Onesimo Samayoa MD CC: Dr. Jamal Johns MD; Dr. Pastor Hernandez DO; Dr. Laya Crisostomo DO; Dr. Bradley MD ~ Date Dictated: 10/26/24 0834 Date Transcribed: 10/26/24 125 Rig Hand: Signed [facility] Work Phone: Ferritinon 10-26-2024 Ferritin [Mass/Vol] 35 ng/mL Normal 22-378 [facility] Comment on above: Performed By: #### L 501.2300, L500.3400, L500.4050, L100.0100 #### [facility] [address] [place], [address] Folate [Mass/volume] in Seru m or PlasmaOrdered By: Pastor Iverson on 10-26-2024 Folate [Mass/Vol] 14.90 ng/mL 4.60-34.80 [facility] Folates,Serum (Folic Acid)on 10-26-2024 FOLATES,SERUM 14.90 ng/mL Normal 4.60-34.80 [facility] Comment on above: Performed By: #### L 500.4100, L500.4050, L100.0100 #### [facility] [address] [place], [address] FOLATES,SERUM 14.20 ng/mL Normal 4.60-34.80 [facility] Comment on above: Result Comment: Hemo lysis, Results will be affected, Requires Recollection. Performed By: #### L 501.2300, L500.3400, L500.4050, L100.0100 #### [facility] [address] [place], [address] Glucose measurement at [facility] deOrdered By: Laya Crisostomo on 10-26-2024 Glucose [Mass/Vol] 106 mg/dL 74-106 [facility] Comment on above: MANAGEMENT OF PATIEN T CARE PER NURSING PROTOCOL HH, Hemoglobin AND Hematocri ton 10-26-2024 Hematocrit (Bld) [Volume fraction] 26.4 % Low 37-47 [facility] Comment on above: Performed By: #### L 501.2300, L500.3400, L500.4050, L100.0100 #### [facility] [address] [place], [address] Hemoglobin (Bld) [Mass/Vol] 9.0 g/dL Low 12.0-15.0 [facility] Comment on above: Performed By: #### L 501.2300, L500.3400, L500.4050, L100.0100 #### [facility] [address] [place], [address] International normalized rat io (INR) calculationOrdered By: Jordi Chahal on 10-26-2024 INR Coag (Bld) [Relative time] 1.1 {INR} [facility] Iron measurement (mass/mass) Ordered By: Pastor Iverson on 10-26-2024 Iron (Unsp spec) [Mass/Mass] 69 ug/dL 50-170 [facility] Iron+Iron Binding Capacityon 10-26-2024 Iron [Mass/Vol] 69 ug/dL Normal 50-170 [facility] Comment on above: Performed By: #### L 501.2300, L500.3400, L500.4050, L100.0100 #### [facility] [address] [place], [address] IRON SATURATION 25.0 Normal 13-59 [facility] Comment on above: Performed By: #### L 501.2300, L500.3400, L500.4050, L100.0100 #### [facility] [address] [place], [address] TIBC 271 ug/dL Normal 250-450 [facility] Comment on above: Performed By: #### L 501.2300, L500.3400, L500.4050, L100.0100 #### [facility] [address] [place], [address] UIBC 202 ug/dL Low 228-428 [facility] Comment on above: Performed By: #### L 501.2300, L500.3400, L500.4050, L100.0100 #### [facility] [address] [place], [address] Ketones Test strip Ql (U)Ord ered By: Pastor Iverson on 10-26-2024 Ketones Ql (U) Negative Negative [facility] Liver Profileon 10-26-2024 Albumin [Mass/Vol] 3.5 g/dL Normal 3.4-4.8 [facility] Comment on above: Performed By: #### L 501.2300, L500.3400, L500.4050, L100.0100 #### [facility] [address] [place], [address] ALK PHOS 70 U/L Normal 35-104 [facility] Comment on above: Performed By: #### L 501.2300, L500.3400, L500.4050, L100.0100 #### [facility] [address] [place], [address] ALT [Catalytic activity/Vol] 28 U/L Normal <=34 [facility] Comment on above: Performed By: #### L 501.2300, L500.3400, L500.4050, L100.0100 #### [facility] [address] [place], [address] AST [Catalytic activity/Vol] 30 U/L Normal <=31 [facility] Comment on above: Performed By: #### L 501.2300, L500.3400, L500.4050, L100.0100 #### [facility] [address] [place], [address] Bilirubin [Mass/Vol] 0.27 mg/dL Normal 0.00-1.30 [facility] Comment on above: Performed By: #### L 501.2300, L500.3400, L500.4050, L100.0100 #### [facility] [address] [place], [address] Bilirubin.direct [Mass/Vol] 0.17 mg/dL Normal 0.00-0.30 [facility] Comment on above: Performed By: #### L 501.2300, L500.3400, L500.4050, L100.0100 #### [facility] [address] [place], [address] Globulin (S) [Mass/Vol] 1.4 g/dL Low 2.2-4.2 [facility] Comment on above: Performed By: #### L 501.2300, L500.3400, L500.4050, L100.0100 #### [facility] [address] [place], [address] T PROT 4.8 g/dL Low 5.9-8.4 [facility] Comment on above: Performed By: #### L 501.2300, L500.3400, L500.4050, L100.0100 #### [facility] [address] [place], [address] MR/CON.PCM.GIon 10-26-2024 MR/CON.PCM.GI [facility] Medical Records Department [address] [place] [address] Consultation - GI 10/26/24 1546 MR#: [id number] Acct: [id number] Name: ,RADHA OBRIEN Rep #: [id number] : 1945 79 From: Aurelio Friend PCP: Dr. Jamal Johns MD Status:ADM IN [facility] Consult Data Date of Consult: 10/26/24 HPI Narrative Reason for Consultation: GI bleed HPI Narrative: RADHA ABAD, is a 79 F presented to [facility] ER complaining of syncope and abdominal pain with subsequent melanotic stool. She has a history of iron deficiency anemia, alcoholism and thrombocytopenia on aspirin. She had a syncopal episode while eating at [employer]. She denies a history of peptic ulcer disease, coronary artery disease or similar previous episodes. She also admits to her vision tunneling before she blacked. Blood work- Thrombocytopenia of 144K with hemoglobin of 9.7 g/dL [facility]LY [facility], [facility] Medical History Fatigue Acute ischemic stroke Epilepsy Alcohol abuse Anxiety Home Medications ???Medication ???Instructions ???Recorded ???Last Taken ???Type aspirin 81 mg chewable tablet 81 mg PO BREAKFAST [facility] Unknown History levothyroxine 50 mcg tablet 50 mcg PO DAILY@0600 30 days #30 0 08/26/22 Unknown Rx tabs rosuvastatin 5 mg tablet 5 mg PO DAILY #90 tabs 01/18/23 Un known Rx buspirone 15 mg tablet 15 mg PO TID 10/25/24 Unknown Hist ory gabapentin 300 mg capsule 300 mg PO TID 10/25/24 Unknown His tory Allergy/AdvReac Type Severity Reaction Status Date / Time Milk Containing Products Allergy Diarrhea Verified 10/25/24 20:17 (Dairy) (Milk Containing Products) Surgical History Hx of hysterectomy Social History household members: spouse Smoking Status: Former smoker alcohol intake: former year quit: 2022 details: Recently quit drinking alcohol 2-3 weeks ago. substance use type: does not use what type of physical activity do you participate in: walking frequency: daily colleen/samaritan: Episcopal seatbelt use: always ROS ROS Narrative Review of Systems: Constitutional: Patient denies fever, chills or weight loss. Eyes: Patient admits to tunnel vision prior to blacking out. ENT: Patient denies runny nose, sore throat or ear pain. Resp: Patient denies shortness of breath or cough. CV: Patient admits to syncopal event but she denies chest pain, palpitations, heart racing or lower extremity edema. GI: Patient admits to pressure-like lower abdominal pain just prior to expressing melanotic stool with nausea. She denies vomiting or constipation. : Patient denies dysuria, hematuria urinary frequency. MSK: Patient denies arthralgias or myalgias. 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 Psych: Patient denies symptoms of uncontrolled depression or anxiety. Neuro: Patient denies headache, paresthesias or focal neurologic deficits. Allergy: Patient denies lip swelling, tongue swelling or urticaria. Hematology: Patient admits to melanotic stools as per HPI. Endocrinology: Patient denies polyuria, polydipsia, polyphagia or heat/cold intolerance. 14 point ROS otherwise negative save for positives noted above in HPI. Physical Exam Const alert, oriented x3, no apparent distress and healthy appearing General Appearance: cooperative GI normal to inspection, nondistended, normoactive bowel sounds, soft to palpation, non-tender and non- distended Percussion: normal to percussion Rectal Exam: deferred Lab / Micro Data 10/26/24 13:50 10/26/24 04:01 Labs: Laboratory Results - last 24 hr 10/25/24 00:01: Urine Osmolality 305 10/25/24 00:11: Serum Osmolality 277 L, Magnesium 1.9, Vitamin B12 532, Serum Folate 14.20, TSH 1.850 10/25/24 20:15: WBC 5.6, RBC 2.99 L, Hgb 9.7 L, Hct 28.4 L, MCV 95.0, MCH 32.4 H, MCHC 34.2, RDW Std Deviation 42.0, RDW Coeff of Bruna 12.1, Plt Count 144 L, MPV 10.4, PT 14.4, INR 1.1, APTT 25.3, S odium 126 L, Potassium 4.1, Chloride 89 L, Carbon Dioxide 26.5, Anion Gap 11, BUN 34 H, Creatinine 0.48 L, Estim Creat Clear Calc 40.22 L, Est GFR (MDRD) Non-Af 95, BUN/Creatinine Ratio 71.4 H, G lucose 141 H, Calcium 8.3 10/25/24 23:18: Blood Type O POSITIVE, Antibody Screen NEGATIVE, Crossmatch See Detail 10/26/24 00:01: Urine Color Straw, Urine Clarity Clear, Urine pH 8.0, Ur Specific [place] 1.010, Urine Protein Negative, Urine Glucose (UA) Normal, Urine Ketones Negative, Urine Occult Blood Negative, Urine Nitrite Negative, Urine Bilirubin Negative, Urine Urobilinogen Normal, Ur Leukocyte Esterase Negative, Urine RBC 0-5 SEEN, Urine WBC 0-5 (more content not included)... Normal [facility] MR/POSTOP.ANE 10-26-2024 MR/POSTOP.[facility] Medical Records Department [address] [place] [address] Anesthesia Postop Eval I 10/26/24 1632 MR#: [id number] Acct: [id number] Name: RADHA ABAD Rep #: [id number] : 1945 79 From: Ankur Mccartney CRNA PCP: Dr. Jamal Johns MD Status:ADM IN Y Race: C Location: [place] [address] Anesthesia: Postop Eval I Current Vital Signs Temperature: 98.4 F Pulse Rate: 77 Blood Pressure: 99/56 Respiratory Rate: 16 Pulse Ox: 94 Assessment Airway patent: Yes Spontaneous unlabored respirations: Yes nausea: No Vomiting: No Anesthesia Complication: No Fluid Hydration Crystalloid volume administer (ml): 300 Total IV fluid infused: 300 Progress Note Anesthesia document: Postop Eval 1 completed: Yes 10/26/241633 Date Ankuredna BishopSherrill ACCOUNTS PAYABLE REPRESENTATIVE Cosigner Signature: Date CC: Signed [facility] MR/[id number] 10-26-2024 MR/POST[address] Medical Records Department [address] [place] [address] Anesthesia Postop Eval II 10/26/24 1634 MR#: [id number] Acct: [id number] Name: RADHA ABAD Rep #: [id number] : 1945 79 From: Ankur Mccartney CRNA PCP: Dr. Jamal Johns MD Status:ADM IN Y Race: C Location: [place] [address] Anesthesia Postop Eval I Sum Postop Eval Completion status Anesthesia document: Postop Eval 1 completed: Yes Anesthesia Postop Eval I Summary Anesthesia Postop Eval I Summary: Anesthesia Postop Eval I: Assessment Summary Airway patent Yes 10/26/24 16:33 ACCOUNTS PAYABLE REPRESENTATIVE.TNES Spontaneous unlabored Yes 10/26/24 16:33 ACCOUNTS PAYABLE REPRESENTATIVE.TNES respirations Mental status nausea No 10/26/24 16:33 ACCOUNTS PAYABLE REPRESENTATIVE.TNES Vomiting No 10/26/24 16:33 ACCOUNTS PAYABLE REPRESENTATIVE.TNES Anesthesia Postop Eval I: Fluid Summary Crystalloid volume administer 300 10/26/24 16:33 ACCOUNTS PAYABLE REPRESENTATIVE.TNES (ml) Colloids volume administered ( ml) Blood Product volume administered (ml) Total IV fluid infused 300 10/26/24 16:33 ACCOUNTS PAYABLE REPRESENTATIVE.TNES Anesthesia Postop Eval I: Summary Notes Anesthesia Complication No 10/26/24 16:33 ACCOUNTS PAYABLE REPRESENTATIVE.TNES Anesthesia Complication Comment: Post-operative progress note Anesthesia: Postop Eval II Evaluation Mental status: Awake Pain Level: 0 nausea: No Vomiting: No 10/26/24 1634 Date Ankur Mccartney ACCOUNTS PAYABLE REPRESENTATIVE Cosigner Signature: Date CC: Signed Normal [facility] Magnesiumon 10-26-2024 Magnesium [Mass/Vol] 1.9 mg/dL Normal 1.5-2.2 [facility] Comment on above: Performed By: #### L 501.2300, L500.3400, L500.4050, L100.0100 #### [facility] [address] [facility] [place], [address] Microscopic analysis of urin e for red blood cells (RBC)Ordered By: Pastor Iverson on 10-26-2024 Microscopic analysis of urine for red blood cells (RBC) 0-5 SEEN /hpf 0-5 [facility] Mucus LM Ql (Urine sed)Order ed By: Pastor Iverson on 10-26-2024 Mucus Ql (Urine sed) 0 SEEN /hpf [facility] Nitrite Test strip Ql (U)Ord ered By: Pastor Iverson on 10-26-2024 Nitrite Ql (U) Negative Negative [facility] No Panel InformationOrdered By: Pastor Iverson on 10-26-2024 Unsaturated Iron Binding Capacity 202 ug/dL Low 228-428 [facility] Osmolality, Serumon 10-27-19 25 OSMOLALITY,SER 277 mOsm/KG Low 280-301 [facility] Comment on above: Performed By: #### L 501.2300, L500.3400, L500.4050, L100.0100 #### [facility] [address] [place], [address] Osmolality, Urineon 10-27-19 25 OSMOLALITY,UR 305 mOsm/KG Normal [facility] Comment on above: Result Comment: Normal Urine Reference Ranges Random: 50 - 1200 mOsm/kg H20 depending on fluid intake Random: >850 mOsm/kg after 12 hour fluid restriction 24 hour: 300 - 900 mOsm/kg H2O Performed By: #### L 501.7400 #### [facility] [address] [place], [address] Partial Thromboplast Timeon 10-26-2024 aPTT Coag (Bld) [Time] 27.9 s Normal 24.1-36.2 [facility] Comment on above: Performed By: #### L 501.2300, L500.3400, L500.4050, L100.0100 #### [facility] [address] [place], [address] Phosphoruson 10-26-2024 Phosphate [Mass/Vol] 3.2 mg/dL Normal 2.7-4.5 [facility] Comment on above: Performed By: #### L 501.2300, L500.3400, L500.4050, L100.0100 #### [facility] [address] [place], [address] Protein Test strip Ql (U)Ord ered By: Pastor Iverson on 10-26-2024 Protein Ql (U) Negative Negative [facility] Prothrombin Time w/INRon INR Coag (PPP) [Relative time] 1.1 {INR} Normal [facility] Comment on above: Performed By: #### L 501.2300, L500.3400, L500.4050, L100.0100 #### [facility] [address] [place], [address] PT Coag (PPP) [Time] 14.5 s Normal 11.7-14.9 [facility] Comment on above: Performed By: #### L 501.2300, L500.3400, L500.4050, L100.0100 #### [facility] [address] [place], [address] Prothrombin timeOrdered By: Jordi Chahal on 10-26-2024 PT Coag (PPP) [Time] 14.5 s 11.7-14.9 [facility] Serum or plasma ferritin jen surement (mass/volume)Ordered By: Pastor Iverson on 10-26-2024 Ferritin [Mass/Vol] 35 ng/mL 22-378 [facility] Serum or plasma iron saturat ion measurement (mass fraction)Ordered By: Pastor Iverson on 10-26-2024 Iron saturation [Mass fraction] 25.0 % 13-59 [facility] Squamous epithelial cells de tection in urine sediment by light microscopyOrdered By: Pastor Iverson on 10-26-2024 Epithelial cells.squamous LM Ql (Urine sed) 0-5 SEEN /hpf 5-10 [facility] Thyroid Stim Hormone (TSH)on 10-26-2024 TSH 1.850 uIU/mL Normal 0.300-4.200 [facility] Comment on above: Performed By: #### L 501.2300, L500.3400, L500.4050, L100.0100 #### [facility] [address] [place], [address] Type AND Screenon 10-26-2024 Ab SCREEN GEL Negative Normal [facility] Comment on above: Order Comment: HGI Performed By: #### L 501.2300, L500.3400, L500.4050, L100.0100 #### [facility] [address] [place], [address] Urinalysis, Completeon 10-26 EPI,SQUAMOUS 0-5 SEEN Normal 5-10 [facility] Comment on above: Order Comment: MARKO TER SPECIMEN Performed By: #### L 501.2300, L500.3400, L500.4050, L100.0100 #### [facility] [address] [place], [address] RBC 0-5 SEEN Normal 0-5 [facility] Comment on above: Order Comment: MARKO TER SPECIMEN Performed By: #### L 501.2300, L500.3400, L500.4050, L100.0100 #### [facility] [address] [place], [address] WBC 0-5 SEEN Normal 0-5 [facility] Comment on above: Order Comment: MARKO TER SPECIMEN Performed By: #### L 501.2300, L500.3400, L500.4050, L100.0100 #### [facility] [address] [place], [address] BACTERIA 0 SEEN Normal None Seen [facility] Comment on above: Order Comment: MARKO TER SPECIMEN Performed By: #### L 501.2300, L500.3400, L500.4050, L100.0100 #### [facility] [address] [place], [address] Mucus Ql (Urine sed) 0 SEEN Normal [facility] Comment on above: Order Comment: MARKO TER SPECIMEN Performed By: #### L 501.2300, L500.3400, L500.4050, L100.0100 #### [facility] [address] [place], [address] Urine clarityOrdered By: Garry solis 10-26-2024 Clarity (U) Clear Clear [facility] Urine color determinationOrd ered By: Pastor Iverson on 10-26-2024 Color (U) Straw Yellow [facility] Urine glucose detectionOrder ed By: Pastor Iverson on 10-26-2024 Glucose Ql (U) Normal mg/dl Normal [facility] Urine leukocyte esterase det ection by dipstickOrdered By: Pastor Iverson on 10-26-2024 Leukocyte esterase Test strip Ql (U) Negative Negative [facility] Urine pHOrdered By: Pastor lee on 10-26-2024 pH (U) 8.0 [pH] 5.0 - 8.0 [facility] Urine sediment bacteria coun t by microscopy (number/high power field)Ordered By: Pastor Iverson on 10-26-2024 Bacteria LM.HPF (Urine sed) [#/Area] 0 /[HPF] None Seen [facility] Urine specific gravity measu rementOrdered By: Pastor Iverson on 10-26-2024 Specific gravity (U) [Rel density] 1.010 1.002-1.030 [facility] Urine urobilinogen measureme ntOrdered By: Pastor Iverson on 10-26-2024 Urobilinogen Ql (U) Normal mg/dl Normal [facility] Vitamin B12on 10-26-2024 Cobalamin (Vitamin B12) [Mass/Vol] 446 pg/mL Normal 180-914 [facility] Comment on above: Performed By: #### L 501.2300, L500.3400, L500.4050, L100.0100 #### [facility] [address] [place], [address] Cobalamin (Vitamin B12) [Mass/Vol] 532 pg/mL Normal 180-914 [facility] Comment on above: Performed By: #### L 501.2300, L500.3400, L500.4050, L100.0100 #### [facility] [address] [place], [address] Vitamin B12 ser/plasOrdered By: Pastor Iverson on 10-26-2024 Cobalamin (Vitamin B12) [Mass/Vol] 446 pg/mL 180-914 [facility] White blood cell countOrdere d By: Pastor Iverson on 10-26-2024 White blood cell count 0-5 SEEN /hpf 0-5 [facility] 12 Lead EKGon 10-25-2024 12 Lead EKG [facility] Cardiovascular Services [address] [place] [address] 12 Lead EKG 10/25/24 2043 MR#: [id number] Acct: [id number] Name: NURSE,RADHA OBRIEN Rep #: [id number] : 1945 79 From: Onesimo Samayoa MD Attending Dr: Dr. Laya Crisostomo DO Status: DIS I N Ordering Dr: Terrance Oswald MD Date: 10/25/24 Location: [facility] Sex: F C Admitted: 10/25/24 Test Reason : DYSRHYTHMIA Blood Pressure : */* mmHG Vent. Rate : 65 BPM Atrial Rate : 65 BPM P-R Int : 200 ms QRS Dur : 90 ms QT Int : 410 ms P-R-T Axes : 79 -52 78 degrees QTcB Int : 426 ms Normal sinus rhythm Left anterior fascicular block Abnormal ECG Confirmed by YAO LEMUS, DONAL ([id number]), editorial clerk MAHESH MCCORMACK ([id number]) on 10/30/2024 6:53:49 AM Referred By: Terrance Oswald Confirmed By: DONAL SAMAYOA MD 10/30/24 0653 Date Onesimo Samayoa MD CC: Dr. Jamal Johns MD; Dr. Laya Crisostomo DO; Dr. Terrance Oswald MD Signed [facility] BRCon 10-25-2024 [facility] Comment on above: Result Comment: [id number] OP RC TRANSFUSED 10/26/24 1539 [id number] OP RC TRANSFUSED 10/26/24 1756 Performed By: #### L 501.2300, L500.3400, L500.4050, L100.0100 #### [facility] [address] [place], [address] Basic Metabolic Profile (BMP )on 10-25-2024 BUN/CRE 71.4 RATIO High 10-20 [facility] Comment on above: Performed By: #### L 500.4100, L500.4050, L100.0100 #### [facility] [address] [place], [address] Calcium [Mass/Vol] 8.3 mg/dL Normal 7.6-11.0 [facility] Comment on above: Performed By: #### L 500.4100, L500.4050, L100.0100 #### [facility] [address] [place], [address] Chloride [Moles/Vol] 89 mmol/L Low 98-108 [facility] Comment on above: Performed By: #### L 500.4100, L500.4050, L100.0100 #### [facility] [address] [place], [address] CO2 [Moles/Vol] 26.5 mmol/L Normal 21.0-32.0 [facility] Comment on above: Performed By: #### L 500.4100, L500.4050, L100.0100 #### [facility] [address] [place], [address] Creatinine [Mass/Vol] 0.48 mg/dL Low 0.70-1.20 [facility] Comment on above: Performed By: #### L 500.4100, L500.4050, L100.0100 #### [facility] [address] [place], [address] ECRCL 40.22 ml/min Low 50-250 [facility] Comment on above: Performed By: #### L 500.4100, L500.4050, L100.0100 #### [facility] [address] [place], [address] GAP 11 Normal 5-15 [facility] Comment on above: Performed By: #### L 500.4100, L500.4050, L100.0100 #### [facility] [address] [place], [address] GFR/1.73 sq M.predicted among non-blacks MDRD (S/P/Bld) [Vol rate/Area] 95 mL/min/{1.73_m2} Normal >60 [facility] Comment on above: Result Comment: mL/m in/1.73m2 CKD-EPI Creatinine Equation (2020) Performed By: #### L 500.4100, L500.4050, L100.0100 #### [facility] [address] [place], [address] Glucose [Mass/Vol] 141 mg/dL High 70-99 [facility] Comment on above: Performed By: #### L 500.4100, L500.4050, L100.0100 #### [facility] [address] [place], [address] Potassium [Moles/Vol] 4.1 mmol/L Normal 3.3-5.1 [facility] Comment on above: Performed By: #### L 500.4100, L500.4050, L100.0100 #### [facility] [address] [place], [address] Sodium [Moles/Vol] 126 mmol/L Low 133-145 [facility] Comment on above: Performed By: #### L 500.4100, L500.4050, L100.0100 #### [facility] [address] [place], [address] Urea nitrogen [Mass/Vol] 34 mg/dL High 4-19 [facility] Comment on above: Performed By: #### L 500.4100, L500.4050, L100.0100 #### [facility] [address] [place], [address] CBC-Complete Blood Cnt No Di ffon 10-25-2024 Erythrocyte distribution width (RBC) [Ratio] 12.1 % Normal 11.6-14.6 [facility] Comment on above: Performed By: #### L 501.2300, L500.3400, L500.4050, L100.0100 #### [facility] [address] [place], [address] Hematocrit (Bld) [Volume fraction] 28.4 % Low 37-47 [facility] Comment on above: Performed By: #### L 501.2300, L500.3400, L500.4050, L100.0100 #### [facility] [address] [place], [address] Hemoglobin (Bld) [Mass/Vol] 9.7 g/dL Low 12.0-15.0 [facility] Comment on above: Performed By: #### L 501.2300, L500.3400, L500.4050, L100.0100 #### [facility] [address] [place], [address] MCH (RBC) [Entitic mass] 32.4 pg High 27.0-32.0 [facility] Comment on above: Performed By: #### L 501.2300, L500.3400, L500.4050, L100.0100 #### [facility] [address] [place], [address] MCHC (RBC) [Mass/Vol] 34.2 g/dL Normal 32-36 [facility] Comment on above: Performed By: #### L 501.2300, L500.3400, L500.4050, L100.0100 #### [facility] [address] [place], [address] MCV (RBC) [Entitic vol] 95.0 fL Normal 81-99 [facility] Comment on above: Performed By: #### L 501.2300, L500.3400, L500.4050, L100.0100 #### [facility] [address] [place], [address] Platelet mean volume (Bld) [Entitic vol] 10.4 fL Normal 6.2-12.0 [facility] Comment on above: Performed By: #### L 501.2300, L500.3400, L500.4050, L100.0100 #### [facility] [address] [place], [address] Platelets (Bld) [#/Vol] 144 10*3/uL Low 150-450 [facility] Comment on above: Performed By: #### L 501.2300, L500.3400, L500.4050, L100.0100 #### [facility] [address] [place], [address] RBC (Bld) [#/Vol] 2.99 10*6/uL Low 4.2-5.4 [facility] Comment on above: Performed By: #### L 501.2300, L500.3400, L500.4050, L100.0100 #### [facility] [address] [place], [address] RDW SD 42.0 fl Normal 35.1-43.9 [facility] Comment on above: Performed By: #### L 501.2300, L500.3400, L500.4050, L100.0100 #### [facility] [address] [place], [address] WBC (Bld) [#/Vol] 5.6 10*3/uL Normal 4.4-11.0 [facility] Comment on above: Performed By: #### L 501.2300, L500.3400, L500.4050, L100.0100 #### [facility] [address] [place], [address] Echo Completeon 10-25-2024 Echo Complete [facility] [address] [place] [address] Echo Complete 10/26/24 0834 MR#: [id number] Acct: [id number] Name: NURSE,RADHA OBRIEN Rep #: [id number] : 1945 79 From: Onesimo Samayoa MD Attending Dr: Dr. Laya Crisostomo DO Status: ADM I N Ordering Dr: Pastor Hernandez DO Date: 10/25/24 Location: [facility] Sex: F C Admitted: 10/25/24 Reason For Study Reason For Study: SYNCOPE/NEAR SYNCOPE Procedure This was a 2D Doppler, Color Flow transthoracic echocardiogram. The study was technically difficult. Due to body habitus. Exam performed portable in patient room. Left Ventricle Normal LV size. The estimated ejection fraction is 65 %. No evidence for diastolic dysfunction. No regional wall motion abnormalities noted. Right Ventricle Normal RV size. Normal systolic function. Atria There is mild biatrial dilatation. No doppler evidence for ASD. Mitral Valve There is moderate mitral annular calcification. There is no mitral valve stenosis. No mitral valve insufficiency. Tricuspid Valve There is no tricuspid stenosis. Trivial tricuspid valve insufficiency. Pulmonary artery systolic pressure is 40 mmHg. Aortic Valve Trisinus/trileaflet aortic valve. There is no aortic stenosis. No aortic valve insufficiency. Pulmonic Valve There is no pulmonic valvular stenosis. No pulmonic valve insufficiency. Great Vessels Normal sized aortic root. Pericardium/Pleural No pericardial effusion. MMode/2D Measurements Calculations LVIDd: 3.9 cm IVSd: 1.1 cm Ao root diam: 3.8 cm LVIDs: 2.3 cm LVPWd: 1.1 cm RVDd: 4.0 cm FS: 42.3 % _ LVAd ap4: 19.3 cm2 LVAd ap2: 15.2 cm2 SV(MOD-sp4): 31.1 ml LVLd ap4: 6.1 cm LVLd ap2: 5.6 cm SI(MOD-sp4): 21.7 ml/m2 EDV(MOD-sp4): 50.9 ml EDV(MOD-sp2): 33.7 ml EDV(sp4-el): 51.6 ml EDV(sp2-el): 34.8 ml LVAs ap4: 10.6 cm2 LVAs ap2: 7.6 cm2 LVLs ap4: 5.0 cm LVLs ap2: 4.6 cm ESV(MOD-sp4): 19.8 ml ESV(MOD-sp2): 11.6 ml ESV(sp4-el): 19.2 ml ESV(sp2-el): 10.7 ml EF(MOD-sp4): 61.1 % EF(MOD-sp2): 65.7 % EF(sp4-el): 62.7 % _ SV(MOD-sp2): 22.2 ml SV(sp4-el): 32.4 ml LA dimension(2D): 3.9 cm SI(MOD-sp2): 15.5 ml/m2 _ TAPSE: 3.1 cm Time Measurements MV dec time: 0.20 sec Doppler Measurements Calculations MV E max jhoan: 92.7 cm/sec Lat Peak E' Jhoan: 8.4 cm/sec Med Peak E' Jhoan: 9.3 cm/sec MV A max jhoan: 144.7 cm/sec E/E' lat: 11.1 E/E' med: 10.0 MV E/A: 0.64 _ MV V2 max: 162.3 cm/sec MV P1/2t max jhoan: 117.0 cm/sec Ao V2 max: 123.1 cm/sec MV max P.5 mmHg MV P1/2t: 59.8 msec Ao max P.1 mmHg MV V2 mean: 95.0 cm/sec MV dec slope: 573.5 cm/sec2 Ao V2 mean: 89.6 cm/sec MV mean P.9 mmHg Ao mean P.5 mmHg MV V2 VTI: 25.7 cm MVA(P1/2t): 3.7 cm2 Ao V2 VTI: 27.4 cm AV (velocity ratio): 0.81 _ LV V1 max: 94.7 cm/sec PA V2 max: 99.1 cm/sec TR max jhoan: 288.3 cm/sec LV V1 max P.6 mmHg PA V2 mean: 68.2 cm/sec TR max P.2 mmHg LV V1 mean P.3 mmHg LV V1 mean: 73.0 cm/sec LV V1 VTI: 22.1 cm ECHO/Echo Complete Interpretation Summary The estimated ejection fraction is 65 %. No evidence for diastolic dysfunction. There is mild biatrial dilatation. Ordering Physician: Pastor Hernandez Referring Physician: Jamal Johns Performed By: Sandra Pinto, DAVID, RVT 10/26/24 1250 Date Onesimo Samayoa MD CC: Dr. Jamal Johns MD; Dr. Pastor Hernandez DO; Dr. Laya Crisostomo DO; Dr. Terrance Oswald MD Date Dictated: 10/26/24 0834 Date Transcribed: 10/26/24 125 Rig Hand: Signed Normal [facility] Department Summary on 10-25-2024 Emergency Department Summary [facility] Medical Records Department [address] [place] [address] Emergency Department Summary 10/25/24 MR#: [id number] Acct: [id number] Name: NURSE,RADHA OBRIEN Rep #: [id number] : 1945 79 From: Terrance Oswald MD PCP: Dr. Jamal Johns MD Status:ADM IN Location: [address] History of Present Illness Chief Complaint: Syncope Detail of Chief Complaint: Syncopal episode while eating at the [employer] Informant: patient, spouse/S.O. and EMS Onset/Context/Timing Onset: Today and Hours Context: Sudden Onset Timing: Intermittent Quality: Syncopal episode Location: At a local restaurant Current Severity: Gone Maximum Severity: Passed out Worsened by: Patient states she had to have a bowel movement and felt some mild discomfo Relieved by: Time Associated Symptoms Associated Symptoms: Per patient nausea and lightheadedness. Per diaphoresis and pallor Narrative Narrative: Patient is an 79-year-old woman. She has history of hypercholesterolemia, squamous cell carcinoma, depression who arrived by ambulance because of syncopal episode. Today she had an appointment with dermatology and had mole surgery left calf size of 2 sugar cubes per patient. Dressing was not removed. 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 She went home and napped. She then went with her to [employer]. Apparently she felt some indigestion and abdominal discomfort that was followed by nausea and urge to defecate. Patient per passed out. She was pale and diaphoretic. She had a bowel movement here. She states her abdominal discomfort is resolved. She states she feels back to normal and would like to go home. Patient has no history of coronary artery disease. She appears pale. According to daughter she looks paler than normal. She has no history of iron deficiency anemia. There is no history of peptic ulcer disease. She does have history of alcohol use. Prior similar symptoms: No Recent Illness/Hospitalization: Yes [facility] Medical History Fatigue Acute ischemic stroke Epilepsy Alcohol abuse Anxiety Home Medications ???Medication ???Instructions ???Recorded ???Last Taken ???Type aspirin 81 mg chewable tablet 81 mg PO BREAKFAST [facility] Unknown History levothyroxine 50 mcg tablet 50 mcg PO DAILY@0600 30 days #30 0 08/26/22 Unknown Rx tabs rosuvastatin 5 mg tablet 5 mg PO DAILY #90 tabs 01/18/23 Un known Rx buspirone 15 mg tablet 15 mg PO TID 10/25/24 Unknown Hist ory gabapentin 300 mg capsule 300 mg PO TID 10/25/24 Unknown His tory Allergy/AdvReac Type Severity Reaction Status Date / Time Milk Containing Products Allergy Diarrhea Verified 10/25/24 20:17 (Dairy) (Milk Containing Products) Surgical History Hx of hysterectomy Social History household members: spouse Smoking Status: Former smoker alcohol intake: former year quit: 2022 details: Recently quit drinking alcohol 2-3 weeks ago. substance use type: does not use what type of physical activity do you participate in: walking frequency: daily colleen/samaritan: Episcopal seatbelt use: always ROS ROS ED Constitutional Constitutional ED: Denies chills, fever(s), subjective, sweats or weight loss Eyes Eyes: Reports other Details: Patient states her vision was tunneled and became black. ENT ENT ED: Denies ear pain, rhinorrhea or sore throat Cardiovascular Cardiovascular: Denies chest pain, orthopnea, palpitations, paroxysmal nocturnal dyspnea or racing heartbeat Respiratory/Chest Respiratory/Chest: Denies cough, dyspnea, dyspnea on exertion, orthopnea or paroxysmal nocturnal dyspnea Gastrointestinal Gastrointestinal: Reports abdominal pain and nausea; Denies constipation, diarrhea, melena or vomiting Genitourinary Genitourinary ED: Denies dysuria, hematuria or urinary frequency Musculoskeletal Musculoskeletal: Denies arthralgias or myalgias Integumentary Denies rash Neurologic Neurologic: Denies headache(s) or paresthesias Hematologic/Lymphatic Hematologic/Lymphatic: Reports systems reviewed and no addt'l complaints, except as documented EXAM Physical Exam Const Vital Signs: 10/25/24 20:13 10/25/24 20:16 10/25/24 20:24 Temperature 96.9 F L Temperature Source Temporal Pulse Rate 72 66 Pulse Rate [Lying] Pulse Rate [Sitting (for 1 minute prior to obtaining)] Pulse Rate [Standing (for 1 minute prior to obtaining)] Respiratory Rate 18 16 Respiratory Pattern Normal Blood Pressure 136/60 H Blood Pressure [Lying] Blood Pressure [Sitting (for 1 minute prior to obtaining)] Blood Pressure [Standing (for 1 minute prior to obtaining) (more content not included)... Normal [facility] H AND P Exam - [facility] 10-25-2024 H&P Exam - Hospitalist [facility] Medical Records Department [address] [place] [address] H P Exam - Hospitalist 10/25/24 3110 MR#: [id number] Acct: [id number] Name: ,RADHA OBRIEN Rep #: [id number] : 1945 79 From: Pastor Hernandez DO PCP: Dr. Jamal Johns MD Status:ADM IN Location: [facility] [id number] HPI - General General Date of Admission: 10/25/24 Date of Service: 10/25/24 Chief Complaint: Syncope and Abdominal Pain with subsequent Melanotic Stool. HPI Narrative RADHA ABAD, is a 79 F with a past medical history of hyperlipidemia; on rosuvastatin, hypothyroidism; on levothyroxine, former tobacco abuse, history of ischemic CVA on baby aspirin daily, epilepsy; on gabapentin TID, orthostatic hypotension, depression with anxiety; on buspirone 3 times daily, history of hyponatremia, history of THOM, history of EtOH abuse; with patient claiming having quit drinking in 2022, history of hysterectomy, OA; with chronic debility and recently diagnosed squamous cell carcinoma; s/p Mohs surgery for excision 2 lesions on her Left calf earlier today who presents to [facility] ER complaining of syncope and abdominal pain with subsequent melanotic stool. Mrs. Abad reports her symptoms began just prior to arrival after she had a syncopal episode while eating at [employer]. She states her symptoms came on suddenly and she was witnessed to have completely passed out. She also admits to painful pressure sensation in her lower abdomen like she has to have a bowel movement with nausea and subsequent melanotic stool with patient's noting her to be pale and diaphoretic. She admits to a history of iron deficiency anemia but she denies a history of peptic ulcer disease, coronary artery disease or similar previous episodes. She also admits to her vision tunneling before she blacked out but she denies associated fever, chills, weight loss, runny nose, sore throat, ear pain, chest pain, palpitations, heart racing, lower extremity edema, shortness of breath, cough, dysuria, hematuria, urinary frequency, arthralgias, myalgias, headache or rash. In the ER she was diagnosed with UGIB suspected to be due to PUD likely due to Adverse Drug Reaction to unopposed daily BASA complicated by mild Thrombocytopenia of 144K with hemoglobin of 9.7 g/dL present on admission compounded by Hyponatremia of 126 mmol/L present on admission and she was then admitted to the PCU for ongoing care for stay that is expected to extend beyond 2 midnights. FOR[facility]LY [facility], [facility]1983 Medical History Fatigue Acute ischemic stroke Epilepsy Alcohol abuse Anxiety Home Medications ???Medication ???Instructions ???Recorded ???Last Taken ???Type aspirin 81 mg chewable tablet 81 mg PO BREAKFAST [facility] Unknown History levothyroxine 50 mcg tablet 50 mcg PO DAILY@0600 30 days #30 0 08/26/22 Unknown Rx tabs rosuvastatin 5 mg tablet 5 mg PO DAILY #90 tabs 01/18/23 Un known Rx buspirone 15 mg tablet 15 mg PO TID 10/25/24 Unknown Hist ory gabapentin 300 mg capsule 300 mg PO TID 10/25/24 Unknown His tory Allergy/AdvReac Type Severity Reaction Status Date / Time Milk Containing Products Allergy Diarrhea Verified 10/25/24 20:17 (Dairy) (Milk Containing Products) Surgical History Hx of hysterectomy Social History household members: spouse Smoking Status: Former smoker alcohol intake: former year quit: 2022 details: Recently quit drinking alcohol 2-3 weeks ago. substance use type: does not use what type of physical activity do you participate in: walking frequency: daily colleen/samaritan: Episcopal seatbelt use: always ROS ROS Narrative Review of Systems: Constitutional: Patient denies fever, chills or weight loss. Eyes: Patient admits to tunnel vision prior to blacking out. ENT: Patient denies runny nose, sore throat or ear pain. Resp: Patient denies shortness of breath or cough. CV: Patient admits to syncopal event but she denies chest pain, palpitations, heart racing or lower extremity edema. GI: Patient admits to pressure-like lower abdominal pain just prior to expressing melanotic stool with nausea. She denies vomiting or constipation. : Patient denies dysuria, hematuria urinary frequency. MSK: Patient denies arthralgias or myalgias. 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 Psych: Patient denies symptoms of uncontrolled depression or anxiety. Neuro: Patient denies headache, paresthesias or focal neurologic deficits. Allergy: Patient denies lip swelling, tongue swelling or urticaria. Hematology: Patient admits to melanotic stools as per HPI. (more content not included)... Normal [facility] Osmolality urOrdered By: Garry giovanny Iverson on 10-25-2024 Osmolality (U) [Osmolality] 305 mOsm/KG >50 [facility] Comment on above: Normal Urine Referen ce Ranges Random: 50 - 1200 mOsm/kg H20 depending on fluid intake Random: >850 mOsm/kg after 12 hour fluid restriction 24 hour: ~300 - 900 mOsm/kg H2O Partial Thromboplast Timeon 10-25-2024 aPTT Coag (Bld) [Time] 25.3 s Normal 24.1-36.2 [facility] Comment on above: Performed By: #### L 501.2300, L500.3400, L500.4050, L100.0100 #### [facility] [address] [place], [address] Prothrombin Time w/INRon INR Coag (PPP) [Relative time] 1.1 {INR} [facility] Comment on above: Performed By: #### L 501.2300, L500.3400, L500.4050, L100.0100 #### [facility] [address] [place], [address] PT Coag (PPP) [Time] 14.4 s Normal 11.7-14.9 [facility] Comment on above: Performed By: #### L 501.2300, L500.3400, L500.4050, L100.0100 #### [facility] [address] [place], [address] Stool Occult Blood iFOBon STOB Positive Normal [facility] Comment on above: Performed By: #### L 501.2300, L500.3400, L500.4050, L100.0100 #### [facility] [place], [address] Stool gastrointestinal hemog lobin detection by immunologic methodOrdered By: Terrance Oswald on 10-25-2024 Lower GI hemoglobin IA Ql (Stl) Positive Abnormal [facility] TSH DL <= 0.005 mIU/L QnOrde red By: Pastor Iverson on 10-25-2024 TSH Qn 1.850 uIU/mL 0.300-4.200 [facility] Absolute lymphocyte countOrd ered By: Jaleel Farfan on 09-25-2024 Lymphocytes Auto (Unsp spec) [#/Vol] 0.64 10*3/uL Low 0.83-4.51 [facility] Absolute neutrophil countOrd ered By: Jaleel Farfan on 09-25-2024 Neutrophils (Bld) [#/Vol] 3.4 10*3/uL 2.0-7.7 [facility] Anion gap in Serum or Plasma Ordered By: Jaleel Farfan on 09-25-2024 Anion gap [Moles/Vol] 9 mmol/L 5-15 [facility] Automated lymphocyte count a s percentage of total leukocytesOrdered By: Jaleel Farfan on 09-25-2024 Lymphocytes/100 WBC Auto (Unsp spec) 13.3 % Low 19-41 [facility] BUN/creatinine ratioOrdered By: Jaleel Farfan on 09-25-2024 Urea nitrogen/Creatinine [Mass ratio] 26.5 mg/mg High 10-20 [facility] Basophil percentageOrdered B y: Jaleel Farfan on 09-25-2024 Basophils/100 WBC (Bld) 0.8 % 0-1 [facility] Bilirubin, totalOrdered By: Jaleel Farfan on 09-25-2024 Bilirubin [Mass/Vol] 0.51 mg/dL 0.00-1.30 [facility] CBC W/Diff, Automatedon 09-05 Absolute Lymph 0.64 X10 3/uL Low 0.83-4.51 [facility] Comment on above: Performed By: #### L 500.4100, L500.4050, L100.0100 #### [facility] [address] [place], [address] Absolute Neut 3.4 X10 3/uL Normal 2.0-7.7 [facility] Comment on above: Performed By: #### L 500.4100, L500.4050, L100.0100 #### [facility] [address] [place], [address] Basophils/100 WBC (Bld) 0.8 % Normal 0-1 [facility] Comment on above: Performed By: #### L 500.4100, L500.4050, L100.0100 #### [facility] [address] [place], [address] Eosinophils/100 WBC (Bld) 2.1 % Normal 0-5 [facility] Comment on above: Performed By: #### L 500.4100, L500.4050, L100.0100 #### [facility] [address] [place], [address] Erythrocyte distribution width (RBC) [Ratio] 12.0 % Normal 11.6-14.6 [facility] Comment on above: Performed By: #### L 500.4100, L500.4050, L100.0100 #### [facility] [address] [place], [address] Hematocrit (Bld) [Volume fraction] 38.5 % Normal 37-47 [facility] Comment on above: Performed By: #### L 500.4100, L500.4050, L100.0100 #### [facility] [address] [place], [address] Hemoglobin (Bld) [Mass/Vol] 13.1 g/dL Normal 12.0-15.0 [facility] Comment on above: Performed By: #### L 500.4100, L500.4050, L100.0100 #### [facility] [address] [place], [address] IG% 0.200 Normal 0.0-0.9 [facility] Comment on above: Result Comment: IG% - Immature Granulocytes (promyelocytes, myelocytes and metamyelocytes) > 1% indicates that a LEFT SHIFT is Present. Performed By: #### L 500.4100, L500.4050, L100.0100 #### [facility] [address] [place], [address] Lymphocytes/100 WBC (Bld) 13.3 % Low 19-41 [facility] Comment on above: Performed By: #### L 500.4100, L500.4050, L100.0100 #### [facility] [address] [place], [address] MCH (RBC) [Entitic mass] 32.3 pg High 27.0-32.0 [facility] Comment on above: Performed By: #### L 500.4100, L500.4050, L100.0100 #### [facility] [address] [place], [address] MCHC (RBC) [Mass/Vol] 34.0 g/dL Normal 32-36 [facility] Comment on above: Performed By: #### L 500.4100, L500.4050, L100.0100 #### [facility] [address] [place], [address] MCV (RBC) [Entitic vol] 95.1 fL Normal 81-99 [facility] Comment on above: Performed By: #### L 500.4100, L500.4050, L100.0100 #### [facility] [address] [place], [address] Monocytes/100 WBC (Bld) 13.5 % High 0-10 [facility] Comment on above: Performed By: #### L 500.4100, L500.4050, L100.0100 #### [facility] [address] [place], [address] Neutrophils/100 WBC (Bld) 70.1 % High 47-70 [facility] Comment on above: Performed By: #### L 500.4100, L500.4050, L100.0100 #### [facility] [address] [place], [address] Nucleated RBC (Bld) [#/Vol] 0 10*3/uL Normal 0-5 [facility] Comment on above: Performed By: #### L 500.4100, L500.4050, L100.0100 #### [facility] [address] [place], [address] Platelet mean volume (Bld) [Entitic vol] 10.3 fL Normal 6.2-12.0 [facility] Comment on above: Performed By: #### L 500.4100, L500.4050, L100.0100 #### [facility] [address] [place], [address] Platelets (Bld) [#/Vol] 190 10*3/uL Normal 150-450 [facility] Comment on above: Performed By: #### L 500.4100, L500.4050, L100.0100 #### [facility] [address] [place], [address] RBC (Bld) [#/Vol] 4.05 10*6/uL Low 4.2-5.4 [facility] Comment on above: Performed By: #### L 500.4100, L500.4050, L100.0100 #### [facility] [address] [place], [address] RDW SD 41.8 fl Normal 35.1-43.9 [facility] Comment on above: Performed By: #### L 500.4100, L500.4050, L100.0100 #### [facility] [address] [place], [address] WBC (Bld) [#/Vol] 4.8 10*3/uL Normal 4.4-11.0 [facility] Comment on above: Performed By: #### L 500.4100, L500.4050, L100.0100 #### [facility] [address] [place], [address] Calculated very low density lipoprotein (VLDL) cholesterol measurementOrdered By: Jaleel Farfan on 09-25-2024 Calculated very low density lipoprotein (VLDL) cholesterol measurement 8 mg/dL 5-40 [facility] VLDL Cholesterol 8 mg/dL -40 [facility] Carbon dioxide, total [Moles /volume] in Central venous bloodOrdered By: Jaleel Farfan on 09-25-2024 CO2 [Moles/Vol] 30.4 mmol/L 21.0-32.0 [facility] Chloride assayOrdered By: Joel Farfan on 09-25-2024 Chloride [Moles/Vol] 90 mmol/L Low 98-108 [facility] Comprehensive Metabolic Prof ilon 09-25-2024 Albumin [Mass/Vol] 4.4 g/dL Normal 3.4-4.8 [facility] Comment on above: Performed By: #### L 500.4100, L500.4050, L100.0100 #### [facility] [address] [place], [address] Albumin/Globulin [Mass ratio] 2.2 {ratio} Normal 0.9-2.4 [facility] [facility] Comment on above: Performed By: #### L 500.4100, L500.4050, L100.0100 #### [facility] [address] [place], [address] ALK PHOS 102 U/L Normal 35-104 [facility] Comment on above: Performed By: #### L 500.4100, L500.4050, L100.0100 #### [facility] [address] [place], [address] ALT [Catalytic activity/Vol] 45 U/L High <=34 [facility] Comment on above: Performed By: #### L 500.4100, L500.4050, L100.0100 #### [facility] [address] [place], [address] AST [Catalytic activity/Vol] 50 U/L High <=31 [facility] Comment on above: Performed By: #### L 500.4100, L500.4050, L100.0100 #### [facility] [address] [place], [address] Bilirubin [Mass/Vol] 0.51 mg/dL Normal 0.00-1.30 [facility] Comment on above: Performed By: #### L 500.4100, L500.4050, L100.0100 #### [facility] [address] [place], [address] BUN/CRE 26.5 RATIO High 10-20 [facility] Comment on above: Performed By: #### L 500.4100, L500.4050, L100.0100 #### [facility] [address] [place], [address] Calcium [Mass/Vol] 9.3 mg/dL Normal 7.6-11.0 [facility] Comment on above: Performed By: #### L 500.4100, L500.4050, L100.0100 #### [facility] [address] [place], [address] Chloride [Moles/Vol] 90 mmol/L Low 98-108 [facility] Comment on above: Performed By: #### L 500.4100, L500.4050, L100.0100 #### [facility] [address] [place], [address] CO2 [Moles/Vol] 30.4 mmol/L Normal 21.0-32.0 [facility] Comment on above: Performed By: #### L 500.4100, L500.4050, L100.0100 #### [facility] [address] [place], [address] Creatinine [Mass/Vol] 0.43 mg/dL Low 0.70-1.20 [facility] Comment on above: Performed By: #### L 500.4100, L500.4050, L100.0100 #### [facility] [address] [place], [address] GAP 9 Normal 5-15 [facility] Comment on above: Performed By: #### L 500.4100, L500.4050, L100.0100 #### [facility] [address] [place], [address] GFR/1.73 sq M.predicted among non-blacks MDRD (S/P/Bld) [Vol rate/Area] 98 mL/min/{1.73_m2} Normal >60 [facility] Comment on above: Result Comment: mL/m in/1.73m2 CKD-EPI Creatinine Equation (2020) Performed By: #### L 500.4100, L500.4050, L100.0100 #### [facility] [address] [place] [place], [address] Globulin (S) [Mass/Vol] 2.0 g/dL Low 2.2-4.2 [facility] Comment on above: Performed By: #### L 500.4100, L500.4050, L100.0100 #### [facility] [address] [place], [address] Glucose [Mass/Vol] 75 mg/dL Normal 70-99 [facility] Comment on above: Performed By: #### L 500.4100, L500.4050, L100.0100 #### [facility] [address] [place], [address] Potassium [Moles/Vol] 4.0 mmol/L Normal 3.3-5.1 [facility] Comment on above: Performed By: #### L 500.4100, L500.4050, L100.0100 #### [facility] [address] [place], [address] Sodium [Moles/Vol] 130 mmol/L Low 133-145 [facility] Comment on above: Performed By: #### L 500.4100, L500.4050, L100.0100 #### [facility] [address] [place], [address] T PROT 6.4 g/dL Normal 5.9-8.4 [facility] Comment on above: Performed By: #### L 500.4100, L500.4050, L100.0100 #### [facility] [address] [place], [address] Urea nitrogen [Mass/Vol] 12 mg/dL Normal 4-19 [facility] Comment on above: Performed By: #### L 500.4100, L500.4050, L100.0100 #### [facility] [address] [place], [address] Eosinophil percentageOrdered By: Jaleel Farfan on 09-25-2024 Eosinophils/100 WBC (Bld) 2.1 % 0-5 [facility] Erythrocyte distribution wid th (RBC) [Ratio]Ordered By: Jaleel Farfan on 09-25-2024 Erythrocyte distribution width (RBC) [Entitic vol] 41.8 fL 35.1-43.9 [facility] Erythrocyte distribution wid th ratioOrdered By: Jaleel Farfan on 09-25-2024 Erythrocyte distribution width (RBC) [Ratio] 12.0 % 11.6-14.6 [facility] Erythrocyte distribution wid th standard deviationOrdered By: Jaleel Farfan on 09-25-2024 Erythrocyte distribution width (RBC) [Ratio] 41.8 fl 35.1-43.9 [facility] GFR/1.73 sq M.predicted gonzalo g non-blacks MDRD (S/P/Bld) [Vol rate/Area]Ordered By: Jaleel Farfan on 09-25-2024 Estimated GFR (MDRD) Non-Af Amer 98 >60 [facility] Comment on above: mL/min/1.73m2 CKD-EP I Creatinine Equation (2020) Glomerular filtration rate ( GFR) estimation/1.73 sq m using serum, plasma, or whole bOrdered By: Jaleel Farfan on 09-25-2024 GFR/1.73 sq M.predicted among non-blacks MDRD (S/P/Bld) [Vol rate/Area] 98 mL/min/{1.73_m2} >60 [facility] Comment on above: mL/min/1.73m2 CKD-EP I Creatinine Equation (2020) Hematocrit Auto (Bld) [Volum e fraction]Ordered By: Jaleel Farfan on 09-25-2024 Hematocrit (Bld) [Volume fraction] 38.5 % 37-47 [facility] Hemoglobin measurementOrdere d By: Jaleel Farfan on 09-25-2024 Hemoglobin (Bld) [Mass/Vol] 13.1 g/dL 12.0-15.0 [facility] Immature granulocytes/100 WB C Auto (Bld)Ordered By: Jaleel Farfan on 09-25-2024 Immature granulocytes/100 WBC (Bld) 0.200 % 0.0-0.9 [facility] Comment on above: IG% - Immature Granu locytes (promyelocytes, myelocytes and metamyelocytes) > 1% indicates that a LEFT SHIFT is Present. LDL calc ser/plasOrdered By: Jaleel Farfan on 09-25-2024 Cholesterol in LDL [Mass/Vol] 46 mg/dL [facility] Comment on above: Cgtdnfpref=522-889 m g/dL & Higher Yrwk=794 mg/dL or greater LDL Cholesterol, Calculated 46 mg/dL [facility] Comment on above: Iyevloheyv=165-644 m g/dL & Higher Imgb=021 mg/dL or greater Laboratory - Chemistry and C hemistry - challengeOrdered By: Jaleel Farfan on 09-25-2024 AST [Catalytic activity/Vol] 50 U/L High <32 [facility] Lipid Profileon 09-25-2024 CHOL:HDL 1.67 Normal [facility] Comment on above: Performed By: #### L 500.4100, L500.4050, L100.0100 #### [facility] [address] [place], [address] Cholesterol [Mass/Vol] 135 mg/dL Normal <=200 [facility] Comment on above: Result Comment: Chol esterol level, Desirable <200 mg/dL Borderline high cholesterol 200-239 mg/dL High cholesterol >=240 mg/dL Recommendations of the NCEP Adult Treatment Panel for the following risk-cutoff thresholds for the [place] population. Performed By: #### L 500.4100, L500.4050, L100.0100 #### [facility] [address] [place], [address] Cholesterol in HDL [Mass/Vol] 81 mg/dL Normal [facility] Comment on above: Result Comment: Kimberley onal Cholesterol Education Program (NCEP) guidelines: <40 mg/dL: Low HDL-cholesterol (major risk factor for CHD) >= 60 mg/dL: High HDL-cholesterol (negative risk factor for CHD) HDL-cholesterol is affected by a number of factors, e.g. smoking, exercise, hormones, sex and age. Performed By: #### L 500.4100, L500.4050, L100.0100 #### [facility] [address] [place], [address] Cholesterol in LDL [Mass/Vol] 46 mg/dL Normal [facility] Comment on above: Result Comment: Bord wjxgsu=098-545 mg/dL Higher Lwkj=742 mg/dL or greater Performed By: #### L 500.4100, L500.4050, L100.0100 #### [facility] [address] [place], [address] Cholesterol in VLDL [Mass/Vol] 8 mg/dL Normal 5-40 [facility] Comment on above: Performed By: #### L 500.4100, L500.4050, L100.0100 #### [facility] [address] [place], [address] Triglyceride [Mass/Vol] 42 mg/dL Normal [facility] Comment on above: Result Comment: The drugs N-Acetylcysteine and Metamizole may falsely depress this assay. Normal range: <150 mg/dL Borderline High: 150-199 mg/dL High: 200-499 mg/dL Very High: >500 mg/dL Performed By: #### L 500.4100, L500.4050, L100.0100 #### [facility] [address] [place], [address] Lymphocytes Auto (Unsp spec) [#/Vol]Ordered By: Jaleel Farfan on 09-25-2024 Lymphocytes (Bld) [#/Vol] 0.64 10*3/uL Low 0.83-4.51 [facility] Lymphocytes/100 WBC Auto (Un sp spec)Ordered By: Jaleel Farfan on 09-25-2024 Lymphocytes/100 WBC (Bld) 13.3 % Low 19-41 [facility] MCV (mean corpuscular volume ) determinationOrdered By: Jaleel Farfan on 09-25-2024 MCV (RBC) [Entitic vol] 95.1 fL 81-99 [facility] Mean corpuscular hemoglobin (MCH) determinationOrdered By: Jaleel Farfan on 09-25-2024 MCH (RBC) [Entitic mass] 32.3 pg High 27.0-32.0 [facility] Mean corpuscular hemoglobin concentration (MCHC) determinationOrdered By: Jaleel Farfan on 09-25-2024 MCHC (RBC) [Mass/Vol] 34.0 g/dL 32-36 [facility] Mean platelet volume determi nationOrdered By: Jaleel Farfan on 09-25-2024 Platelet mean volume (Bld) [Entitic vol] 10.3 fL 6.2-12.0 [facility] Monocyte percentageOrdered B y: Jaleel Farfan on 09-25-2024 Monocytes/100 WBC (Bld) 13.5 % High 0-10 [facility] Neutrophil percentageOrdered By: Jaleel Farfan on 09-25-2024 Neutrophils/100 WBC (Bld) 70.1 % High 47-70 [facility] Nucleated red blood cell per centageOrdered By: Jaleel Farfan on 09-25-2024 Nucleated RBC/100 WBC (Bld) [Ratio] 0 % 0-5 [facility] Platelet countOrdered By: Joel Farfan on 09-25-2024 Platelets (Bld) [#/Vol] 190 10*3/uL 150-450 [facility] Potassium (Unsp spec) [Mass/ Vol]Ordered By: Jaleel Farfan on 09-25-2024 Potassium [Moles/Vol] 4.0 mmol/L 3.3-5.1 [facility] Potassium measurement (mass/ volume)Ordered By: Jaleel Farfan on 09-25-2024 Potassium (Unsp spec) [Mass/Vol] 4.0 mmol/L 3.3-5.1 [facility] RBC Auto (Bld) [#/Vol]Ordere d By: Jaleel Farfan on 09-25-2024 RBC (Bld) [#/Vol] 4.05 10*6/uL Low 4.2-5.4 [facility] Screening total cholesterol/ high density lipoprotein (HDL) cholesterol ratioOrdered By: Jaleel Farfan on 09-25-2024 Cholesterol.total/Choles terol in HDL [Mass ratio] 1.67 {ratio} [facility] Serum creatinine measurement (mass/volume)Ordered By: Jaleel Farfan on 09-25-2024 Creatinine [Mass/Vol] 0.43 mg/dL Low 0.70-1.20 [facility] Serum globulin measurementOr dered By: Jaleel Farfan on 09-25-2024 Globulin (S) [Mass/Vol] 2.0 g/dL Low 2.2-4.2 [facility] Serum glucose measurement (m ass/volume)Ordered By: Jaleel Farfan on 09-25-2024 Glucose [Mass/Vol] 75 mg/dL 70-99 [facility] Serum or plasma alanine de la torre otransferase (ALT) measurementOrdered By: Jaleel Farfan on 09-25-2024 ALT [Catalytic activity/Vol] 45 U/L High <35 [facility] Serum or plasma albumin odalys urement (mass/volume)Ordered By: Jaleel Farfan on 09-25-2024 Albumin [Mass/Vol] 4.4 g/dL 3.4-4.8 [facility] Serum or plasma albumin/glob ulin mass ratioOrdered By: Jaleel Farfan on 09-25-2024 Albumin/Globulin [Mass ratio] 2.2 {ratio} 0.9-2.4 [facility] Serum or plasma alkaline kevin sphatase measurementOrdered By: Jaleel Farfan on 09-25-2024 ALP [Catalytic activity/Vol] 102 U/L 35-104 [facility] Serum or plasma calcium odalys urement (mass/volume)Ordered By: Jaleel Farfan on 09-25-2024 Calcium [Mass/Vol] 9.3 mg/dL 7.6-11.0 [facility] Serum or plasma cholesterol in HDL measurement (mass/volume)Ordered By: Jaleel Farfan on 09-25-2024 Cholesterol in HDL [Mass/Vol] 81 mg/dL >40 [facility] Comment on above: National Cholesterol Education Program (NCEP) guidelines:<40 mg/dL: Low HDL-cholesterol (major risk factor for CHD)>= 60 mg/dL: High HDL-cholesterol (negative risk factor for CHD)HDL-cholesterol is affected by a number of factors, e.g. smoking, exercise, hormones, sex and age. Serum or plasma cholesterol measurement (mass/volume)Ordered By: Jaleel Farfan on 09-25-2024 Cholesterol [Mass/Vol] 135 mg/dL <201 [facility] Comment on above: Cholesterol level, D esirable <200 mg/dLBorderline high cholesterol 200-239 mg/dLHigh cholesterol >=240 mg/dLRecommendations of the NCEP Adult Treatment Panel for the following risk-cutoff thresholds for the [place] population. Serum or plasma urea nitroge n measurement (mass/volume)Ordered By: Jaleel Farfan on 09-25-2024 Urea nitrogen [Mass/Vol] 12 mg/dL 4-19 [facility] Sodium levelOrdered By: Emperatriz Farfan on 09-25-2024 Sodium [Moles/Vol] 130 mmol/L Low 133-145 [facility] Total proteinOrdered By: Jeremy Farfan on 09-25-2024 Protein [Mass/Vol] 6.4 g/dL 5.9-8.4 [facility] Triglycerides measurementOrd ered By: Jaleel Farfan on 09-25-2024 Triglyceride [Mass/Vol] 42 mg/dL <199 [facility] Comment on above: The drugs N-Acetylcy steine and Metamizole may falsely depress this assay. Normal range: <150 mg/dLBorderline High: 150-199 mg/dLHigh: 200-499 mg/dLVery High: >500 mg/dL White blood cell (WBC) count Ordered By: Jaleel Farfan on 09-25-2024 WBC (Bld) [#/Vol] 4.8 10*3/uL 4.4-11.0 [facility] Absolute lymphocyte countOrd ered By: Jamal Johns on 09-05-2023 Lymphocytes Auto (Unsp spec) [#/Vol] 0.88 10*3/uL 0.83-4.51 [facility] Automated lymphocyte count a s percentage of total leukocytesOrdered By: Jamal Johns on 09-05-2023 Lymphocytes/100 WBC Auto (Unsp spec) 29.7 % 19-41 [facility] Basophil percentageOrdered B y: Jamal Johns on 09-05-2023 Basophils/100 WBC (Bld) 1.7 % 0-1 [facility] Bilirubin [Mass/Vol] 0.80 mg/dL 0.20-1.00 [facility] Comment on above: For patients on eltr ombopag therapy, use of Dimension [place] TBIL is not recommended. Chloride [Moles/Vol] 100 mmol/L 98-107 [facility] Cholesterol [Mass/Vol] 141 mg/dL <200 [facility] Comment on above: <200 mg/dL Desirable 200-240 mg/dL Borderline >240 mg/dL High Risk Eosinophils/100 WBC (Bld) 3.0 % 0-5 [facility] Glucose [Mass/Vol] 99 mg/dL 74-106 [facility] Hemoglobin (Bld) [Mass/Vol] 13.8 g/dL 12.0-15.0 [facility] Monocytes/100 WBC (Bld) 15.2 % 0-10 [facility] Neutrophils (Bld) [#/Vol] 1.5 10*3/uL 2.0-7.7 [facility] Neutrophils/100 WBC (Bld) 50.1 % 47-70 [facility] Potassium [Moles/Vol] 4.1 mmol/L 3.5-5.1 [facility] Protein [Mass/Vol] 6.9 g/dL 6.4-8.2 [facility] Sodium [Moles/Vol] 135 mmol/L 136-145 [facility] Triglyceride [Mass/Vol] 52 mg/dL <199 [facility] Comment on above: The drugs N-Acetylcy steine and Metamizole may falsely depress this assay.Serum Triglycerides Reference Interval Normal <150 mg/dL Borderline high 150 - 199 mg/dL High 200 - 499 mg/dL Very High > or = 500 mg/dL WBC (Bld) [#/Vol] 3.0 10*3/uL 4.4-11.0 [facility] Determination of erythrocyte mean corpuscular volume (MCV)Ordered By: Jamal Johns on 09-05-2023 MCV (RBC) [Entitic vol] 96.1 fL 81-99 [facility] Erythrocyte distribution wid th ratioOrdered By: Jamal Nat on 09-05-2023 Erythrocyte distribution width (RBC) [Ratio] 12.4 % 11.6-14.6 [facility] Erythrocyte distribution wid th standard deviationOrdered By: Jamal Johns on 09-05-2023 Erythrocyte distribution width (RBC) [Entitic vol] 44.1 fL 35.1-43.9 [facility] Hematocrit Auto (Bld) [Volum e fraction]Ordered By: Jamal Johns on 09-05-2023 Hematocrit (Bld) [Volume fraction] 41.7 % 37-47 [facility] Immature granulocytes/100 WB C Auto (Bld)Ordered By: Jamal Johns on 09-05-2023 Immature granulocytes/100 WBC (Bld) 0.300 % 0.0-0.9 [facility] Comment on above: IG% - Immature Granu locytes (promyelocytes, myelocytes and metamyelocytes) > 1% indicates that a LEFT SHIFT is Present. Laboratory - Chemistry and C hemistry - challengeOrdered By: Jamal Johns on 09-05-2023 Albumin/Globulin [Mass ratio] 1.7 {ratio} 0.9-2.4 [facility] ALP [Catalytic activity/Vol] 79 U/L 45-117 [facility] ALT [Catalytic activity/Vol] 53 U/L 13-56 [facility] Cholesterol in HDL [Mass/Vol] 85 mg/dL >40 [facility] Comment on above: The drugs N-Acetylcy steine and Metamizole may falsely depress this assay. Reference Range HDL <40 mg/dL Low HDL Cholesterol HDL >or= 60 mg/dL High HDL Cholesterol Cholesterol in LDL [Mass/Vol] 46 mg/dL 0-130 [facility] CO2 [Moles/Vol] 31.0 mmol/L 21.0-32.0 [facility] Globulin (S) [Mass/Vol] 2.6 g/dL 2.2-4.2 [facility] Urea nitrogen/Creatinine [Mass ratio] 22.4 mg/mg 10-20 [facility] - Hematology and Cell countsOrdered By: Jamal Johns on 09-05-2023 MCH (RBC) [Entitic mass] 31.8 pg 27.0-32.0 [facility] MCHC (RBC) [Mass/Vol] 33.1 g/dL 32-36 [facility] Nucleated RBC/100 WBC (Bld) [Ratio] 0 % 0-5 [facility] Platelet mean volume (Bld) [Entitic vol] 10.3 fL 6.2-12.0 [facility] Platelets (Bld) [#/Vol] 153 10*3/uL 150-450 [facility] No Panel InformationOrdered By: Jamal Johns on 09-05-2023 Estimated GFR (MDRD) Amer 129 mL/min >60 [facility] Comment on above: GFR Calc Estimated GFR (MDRD) Non-Af Amer 106 mL/min >60 [facility] Comment on above: Non- GFR Calc Vitamin D 25-Hydroxy 39.6 ng/mL [facility] Comment on above: Vitamin D 25(OH) Sta tus Range Deficiency <20 ng/mL (50nmol/L) Insufficiency 20 - 30 ng/mL (50 - 75 nmol/L) Sufficiency 30 - 100 ng/mL (75 - 250 nmol/L) Toxicity >100 ng/mL (>250 nmol/L) VLDL Cholesterol 10 mg/dL 5-40 [facility] RBC Auto (Bld) [#/Vol]Ordere d By: Jamal Johns on 09-05-2023 RBC (Bld) [#/Vol] 4.34 10*6/uL 4.2-5.4 [facility] Serum or plasma calcium odalys urement (mass/volume)Ordered By: Jamal Johns on 09-05-2023 Calcium [Mass/Vol] 8.6 mg/dL 8.5-10.1 [facility] Serum or plasma creatinine m easurement (mass/volume)Ordered By: Jamal Johns on 09-05-2023 Creatinine [Mass/Vol] 0.58 mg/dL 0.55-1.02 [facility] Comment on above: The validity of the calculated GFR & GFRAA in patients over 70 years has not been determined. Clinical correlation is essential. Serum or plasma thyroid stim ulating hormone (TSH) measurement (units/volume)Ordered By: Jamal Johns on 09-05-2023 TSH Qn 2.20 uIU/mL 0.358-3.74 [facility] Serum or plasma urea nitroge n measurement (mass/volume)Ordered By: Jamal Johns on 09-05-2023 Urea nitrogen [Mass/Vol] 13 mg/dL 7-18 [facility] Thin prep Papanicolaou smear with manual screeningOrdered By: Jamal Johns on 09-05-2023 Thin prep Papanicolaou smear with manual screening 4.3 g/dL 3.2-5.0 [facility] Thin prep Papanicolaou smear with manual screening 43 U/L 15-37 [facility] Thin prep Papanicolaou smear with manual screening 4 5-15 [facility] - Chemistry and C hemistry - challengeOrdered By: Chata Barton on 12-01-2022 Sodium (U) [Moles/Vol] 12 mmol/L Not Establ. [facility] Urine osmolality measurement Ordered By: Chata Barton on 12-01-2022 Osmolality (U) [Osmolality] 164 mOsm/KG >50 [facility] Comment on above: Normal Urine Referen ce Ranges Random: 50 - 1200 mOsm/kg H20 depending on fluid intake Random: >850 mOsm/kg after 12 hour fluid restriction 24 hour: ~300 - 900 mOsm/kg H2O Basophil percentageOrdered B y: Chata Barton on 11-17-2022 Bilirubin [Mass/Vol] 0.60 mg/dL 0.20-1.00 [facility] Comment on above: For patients on eltr ombopag therapy, use of Dimension [place] TBIL is not recommended. Chloride [Moles/Vol] 97 mmol/L 98-107 [facility] Glucose [Mass/Vol] 99 mg/dL 74-106 [facility] Potassium [Moles/Vol] 3.9 mmol/L 3.5-5.1 [facility] Protein [Mass/Vol] 6.6 g/dL 6.4-8.2 [facility] Sodium [Moles/Vol] 133 mmol/L 136-145 [facility] Laboratory - Chemistry and C hemistry - challengeOrdered By: Chata Barton on 11-17-2022 ALP [Catalytic activity/Vol] 65 U/L 45-117 [facility] ALT [Catalytic activity/Vol] 48 U/L 13-56 [facility] CO2 [Moles/Vol] 32.0 mmol/L 21.0-32.0 [facility] Free T4 [Mass/Vol] 1.19 ng/dL 0.76-1.46 [facility] Globulin (S) [Mass/Vol] 2.5 g/dL 2.2-4.2 [facility] Urea nitrogen/Creatinine [Mass ratio] 20.0 mg/mg 10-20 [facility] No Panel InformationOrdered By: Chata Barton on 11-17-2022 Estimated GFR (MDRD) Amer 173 mL/min >60 [facility] Comment on above: GFR Calc Estimated GFR (MDRD) Non-Af Amer 143 mL/min >60 [facility] Comment on above: Non- GFR Calc Thyroglobulin Antibody < 1.0 IU/mL 0.0-0.9 [facility] Comment on above: Thyroglobulin Antibo dy measured by [employer] Thyroglobulin Level 6.0 ng/mL 1.5-38.5 [facility] Comment on above: According to the [facility] Academy of Clinical Biochemistry,the reference interval for Thyroglobulin (TG) should berelated to euthyroid patients and not for patients whounderwent thyroidectomy. TG reference intervals for thesepatients depend on the residual mass of the thyroid tissueleft after surgery. Establishing a post-operative baselineis recommended. The assay limit of quantitation is 0.1ng/mLThyroglobulin measured by Shirin [place] [employer] Thyroid Stimulating Hormone (TSH) 1.41 uIU/mL 0.358-3.74 [facility] Serum or plasma albumin odalys urement (mass/volume)Ordered By: Chata Barton on 11-17-2022 Albumin [Mass/Vol] 4.1 g/dL 3.2-5.0 [facility] Serum or plasma albumin/glob ulin mass ratioOrdered By: Chata Barton on 11-17-2022 Albumin/Globulin [Mass ratio] 1.6 {ratio} 0.9-2.4 [facility] Serum or plasma calcium odalys urement (mass/volume)Ordered By: Chata Barton on 11-17-2022 Calcium [Mass/Vol] 8.5 mg/dL 8.5-10.1 [facility] Serum or plasma creatinine m easurement (mass/volume)Ordered By: Chata Barton on 11-17-2022 Creatinine [Mass/Vol] 0.45 mg/dL 0.55-1.02 [facility] Comment on above: The validity of the calculated GFR & GFRAA in patients over 70 years has not been determined. Clinical correlation is essential. Serum or plasma thyroperoxid ase antibody assay (units/volume)Ordered By: Chata Barton on 11-17-2022 TPO Ab Qn [IU]/mL 0-34 [facility] Comment on above: Performed at: [facility] - [address] [id number] Director: Ni Arellano MD, Phone: [phone] at: - [facility] [address] [id number] Director: Jd Zapien PhD, Phone: [phone] Serum or plasma urea nitroge n measurement (mass/volume)Ordered By: Chata Barton on 11-17-2022 Urea nitrogen [Mass/Vol] 9 mg/dL 7-18 [facility] Thin prep Papanicolaou smear with manual screeningOrdered By: Chata Barton on 11-17-2022 Thin prep Papanicolaou smear with manual screening 31 U/L 15-37 [facility] Thin prep Papanicolaou smear with manual screening 4 5-15 [facility] Thyroid stimulating immunogl obulins detectionOrdered By: Chata Barton on 11-17-2022 Thyroid stimulating immunoglobulins Ql (S) <0.10 IU/L 0.00-0.55 [facility] Basophil percentageOrdered B y: Dr. Mcneal on 09-09-2022 Ammonia (P) [Moles/Vol] 15.0 umol/L 11-32 [facility] Bilirubin [Mass/Vol] 0.50 mg/dL 0.20-1.00 [facility] Comment on above: For patients on eltr ombopag therapy, use of Dimension [place] TBIL is not recommended. Chloride [Moles/Vol] 96 mmol/L 98-107 [facility] Glucose [Mass/Vol] 127 mg/dL 74-106 [facility] Comment on above: Fasting Glucose resu lt greater than or equal to 126 mg/dL suggests DIABETES MELLITUS per A.D.A. criteria. Potassium [Moles/Vol] 3.9 mmol/L 3.5-5.1 [facility] Protein [Mass/Vol] 6.5 g/dL 6.4-8.2 [facility] Sodium [Moles/Vol] 132 mmol/L 136-145 [facility] - Chemistry and C hemistry - challengeOrdered By: Dr. Mcneal on 09-09-2022 ALP [Catalytic activity/Vol] 77 U/L 45-117 [facility] ALT [Catalytic activity/Vol] 36 U/L 13-56 [facility] CO2 [Moles/Vol] 32.0 mmol/L 21.0-32.0 [facility] Globulin (S) [Mass/Vol] 2.7 g/dL 2.2-4.2 [facility] Urea nitrogen/Creatinine [Mass ratio] 27.4 mg/mg 10-20 [facility] No Panel InformationOrdered By: Dr. Mcneal on 09-09-2022 Estimated GFR (MDRD) Amer 162 mL/min >60 [facility] Comment on above: GFR Calc Estimated GFR (MDRD) Non-Af Amer 134 mL/min >60 [facility] Comment on above: Non- GFR Calc Levetiracetam (Keppra) Level 6.8 ug/mL 10.0-40.0 [facility] Comment on above: Performed at: [facility] [address] [id number] Director: Ni Arellano MD, Phone: [phone] Whole Blood Vitamin B1 Level 133.5 nmol/L 66.5-200.0 [facility] Serum or plasma albumin odalys urement (mass/volume)Ordered By: Dr. Mcneal on 09-09-2022 Albumin [Mass/Vol] 3.8 g/dL 3.2-5.0 [facility] Serum or plasma albumin/glob ulin mass ratioOrdered By: Dr. Mcneal on 09-09-2022 Albumin/Globulin [Mass ratio] 1.4 {ratio} 0.9-2.4 [facility] Serum or plasma calcium odalys urement (mass/volume)Ordered By: Dr. Mcneal on 09-09-2022 Calcium [Mass/Vol] 8.7 mg/dL 8.5-10.1 [facility] Serum or plasma creatinine m easurement (mass/volume)Ordered By: Dr. Mcneal on 09-09-2022 Creatinine [Mass/Vol] 0.48 mg/dL 0.55-1.02 [facility] Comment on above: The validity of the calculated GFR & GFRAA in patients over 70 years has not been determined. Clinical correlation is essential. Serum or plasma urea nitroge n measurement (mass/volume)Ordered By: Dr. Mcneal on 09-09-2022 Urea nitrogen [Mass/Vol] 13 mg/dL 7-18 [facility] Thin prep Papanicolaou smear with manual screeningOrdered By: Dr. Mcneal on 09-09-2022 Thin prep Papanicolaou smear with manual screening 24 U/L 15-37 [facility] Thin prep Papanicolaou smear with manual screening 4 5-15 [facility] Whole blood hemoglobin A1c/t otal hemoglobin ratio (mass fraction)Ordered By: Dr. Mcneal on 09-09-2022 HbA1c (Bld) [Mass fraction] 5.4 % 3.8-5.6 [facility] Comment on above: Normal < 5.7 % Predi abetic 5.7 - 6.4 % Diabetic >or= 6.5 % Please note range changes. COVID-19 virus antigen assay Ordered By: Jos Hooks on 08-27-2022 SARS-CoV-2 (COVID-19) Ag IA.rapid Ql (Resp) [facility] COVID-19 virus antigen assay Ordered By: Dr. Hooks on 08-27-2022 SARS-CoV-2 (COVID-19) Ag IA.rapid Ql (Resp) [facility] Absolute lymphocyte countOrd ered By: Dr. Hooks on 08-25-2022 Lymphocytes Auto (Unsp spec) [#/Vol] 0.85 10*3/uL 0.83-4.51 [facility] Basophil percentageOrdered B y: Dr. Hooks on 08-25-2022 Basophils/100 WBC (Bld) 0.8 % 0-1 [facility] Chloride [Moles/Vol] 100 mmol/L 98-107 [facility] Eosinophils/100 WBC (Bld) 3.8 % 0-5 [facility] Glucose [Mass/Vol] 113 mg/dL 74-106 [facility] Comment on above: Fasting Glucose resu lt from 100 to 125 mg/dL suggests IMPAIRED HOMEOSTASIS per A.D.A. criteria. Neutrophils (Bld) [#/Vol] 3.4 10*3/uL 2.0-7.7 [facility] Neutrophils/100 WBC (Bld) 67.2 % 47-70 [facility] Potassium [Moles/Vol] 4.5 mmol/L 3.5-5.1 [facility] Sodium [Moles/Vol] 138 mmol/L 136-145 [facility] WBC (Bld) [#/Vol] 5.0 10*3/uL 4.4-11.0 [facility] Blood erythrocytes count (nu mber/volume)Ordered By: Dr. Hooks on 08-25-2022 RBC (Bld) [#/Vol] 3.88 10*6/uL 4.2-5.4 [facility] Blood hemoglobin measurement (mass/volume)Ordered By: Dr. Hooks on 08-25-2022 Hemoglobin (Bld) [Mass/Vol] 12.8 g/dL 12.0-15.0 [facility] Blood lymphocytes/100 leukoc ytesOrdered By: Dr. Hooks on 08-25-2022 Lymphocytes/100 WBC (Bld) 17.0 % 19-41 [facility] Blood monocytes/100 leukocyt esOrdered By: Dr. Hooks on 08-25-2022 Monocytes/100 WBC (Bld) 11.0 % 0-10 [facility] Blood platelet mean volumeOr dered By: Dr. Hooks on 08-25-2022 Platelet mean volume (Bld) [Entitic vol] 10.3 fL 6.2-12.0 [facility] Determination of erythrocyte mean corpuscular volume (MCV)Ordered By: Dr. Hooks on 08-25-2022 MCV (RBC) [Entitic vol] 99.7 fL 81-99 [facility] Hematocrit Auto (Bld) [Volum e fraction]Ordered By: Dr. Hooks on 08-25-2022 Hematocrit (Bld) [Volume fraction] 38.7 % 37-47 [facility] - Chemistry and C hemistry - challengeOrdered By: Dr. Hooks on 08-25-2022 CO2 [Moles/Vol] 34.0 mmol/L 21.0-32.0 [facility] Urea nitrogen/Creatinine [Mass ratio] 56.6 mg/mg 10-20 [facility] - Hematology and Cell countsOrdered By: Dr. Hooks on 08-25-2022 Erythrocyte distribution width (RBC) [Entitic vol] 43.0 fL 35.1-43.9 [facility] Erythrocyte distribution width (RBC) [Ratio] 11.8 % 11.6-14.6 [facility] Immature granulocytes/100 WBC (Bld) 0.200 % 0.0-0.9 [facility] Comment on above: IG% - Immature Granu locytes (promyelocytes, myelocytes and metamyelocytes) > 1% indicates that a LEFT SHIFT is Present. MCH (RBC) [Entitic mass] 33.0 pg 27.0-32.0 [facility] Nucleated RBC/100 WBC (Bld) [Ratio] 0 % 0-5 [facility] MCHC Auto (RBC) [Mass/Vol]Or dered By: Dr. Hooks on 08-25-2022 MCHC (RBC) [Mass/Vol] 33.1 g/dL 32-36 [facility] No Panel InformationOrdered By: Dr. Hooks on 08-25-2022 Estimated Creatinine Clearance Calc 29.67 ml/min [facility] Estimated GFR (MDRD) Amer 138 mL/min >60 [facility] Comment on above: GFR Calc Estimated GFR (MDRD) Non-Af Amer 114 mL/min >60 [facility] Comment on above: Non- GFR Calc Platelets bldOrdered By: Dr. Hooks on 08-25-2022 Platelets (Bld) [#/Vol] 209 10*3/uL 150-450 [facility] Serum or plasma calcium odalys urement (mass/volume)Ordered By: Dr. Hooks on 08-25-2022 Calcium [Mass/Vol] 8.9 mg/dL 8.5-10.1 [facility] Serum or plasma creatinine m easurement (mass/volume)Ordered By: Dr. Hooks on 08-25-2022 Creatinine [Mass/Vol] 0.55 mg/dL 0.55-1.02 [facility] Comment on above: The validity of the calculated GFR & GFRAA in patients over 70 years has not been determined. Clinical correlation is essential. Serum or plasma urea nitroge n measurement (mass/volume)Ordered By: Dr. Hooks on 08-25-2022 Urea nitrogen [Mass/Vol] 31 mg/dL 7-18 [facility] Thin prep Papanicolaou smear with manual screeningOrdered By: Dr. Hooks on 08-25-2022 Thin prep Papanicolaou smear with manual screening 4 5-15 [facility] Absolute lymphocyte countOrd ered By: Dr. Cannon on 08-23-2022 Lymphocytes Auto (Unsp spec) [#/Vol] 1.05 10*3/uL 0.83-4.51 [facility] Basophil percentageOrdered B y: Dr. Cannon on 08-23-2022 Basophils/100 WBC (Bld) 0.5 % 0-1 [facility] Chloride [Moles/Vol] 103 mmol/L 98-107 [facility] Eosinophils/100 WBC (Bld) 4.8 % 0-5 [facility] Glucose [Mass/Vol] 93 mg/dL 74-106 [facility] Neutrophils (Bld) [#/Vol] 3.6 10*3/uL 2.0-7.7 [facility] Neutrophils/100 WBC (Bld) 64.0 % 47-70 [facility] Potassium [Moles/Vol] 3.8 mmol/L 3.5-5.1 [facility] Sodium [Moles/Vol] 141 mmol/L 136-145 [facility] WBC (Bld) [#/Vol] 5.7 10*3/uL 4.4-11.0 [facility] Blood erythrocytes count (nu mber/volume)Ordered By: Dr. Cannon on 08-23-2022 RBC (Bld) [#/Vol] 3.54 10*6/uL 4.2-5.4 [facility] Blood hemoglobin measurement (mass/volume)Ordered By: Dr. Cannon on 08-23-2022 Hemoglobin (Bld) [Mass/Vol] 11.7 g/dL 12.0-15.0 [facility] Blood lymphocytes/100 leukoc ytesOrdered By: Dr. Cannon on 08-23-2022 Lymphocytes/100 WBC (Bld) 18.5 % 19-41 [facility] Blood monocytes/100 leukocyt esOrdered By: Dr. Cannon on 08-23-2022 Monocytes/100 WBC (Bld) 12.0 % 0-10 [facility] Blood platelet mean volumeOr dered By: Dr. Cannon on 08-23-2022 Platelet mean volume (Bld) [Entitic vol] 10.7 fL 6.2-12.0 [facility] COVID-19 virus antigen assay Ordered By: Sandy Cannon on 08-23-2022 SARS-CoV-2 (COVID-19) Ag IA.rapid Ql (Resp) [facility] COVID-19 virus antigen assay Ordered By: Dr. Cannon on 08-23-2022 SARS-CoV-2 (COVID-19) Ag IA.rapid Ql (Resp) [facility] Determination of erythrocyte mean corpuscular volume (MCV)Ordered By: Dr. Cannon on 08-23-2022 MCV (RBC) [Entitic vol] 98.3 fL 81-99 [facility] Hematocrit Auto (Bld) [Volum e fraction]Ordered By: Dr. Cannon on 08-23-2022 Hematocrit (Bld) [Volume fraction] 34.8 % 37-47 [facility] - Chemistry and C hemistry - challengeOrdered By: Dr. Cannon on 08-23-2022 CO2 [Moles/Vol] 33.0 mmol/L 21.0-32.0 [facility] Urea nitrogen/Creatinine [Mass ratio] 69.0 mg/mg 10-20 [facility] - Hematology and Cell countsOrdered By: Dr. Cannon on 08-23-2022 Erythrocyte distribution width (RBC) [Entitic vol] 42.9 fL 35.1-43.9 [facility] Erythrocyte distribution width (RBC) [Ratio] 11.7 % 11.6-14.6 [facility] Immature granulocytes/100 WBC (Bld) 0.200 % 0.0-0.9 [facility] Comment on above: IG% - Immature Granu locytes (promyelocytes, myelocytes and metamyelocytes) > 1% indicates that a LEFT SHIFT is Present. MCH (RBC) [Entitic mass] 33.1 pg 27.0-32.0 [facility] Nucleated RBC/100 WBC (Bld) [Ratio] 0 % 0-5 [facility] Auto (RBC) [Mass/Vol]Or dered By: Dr. Cannon on 08-23-2022 MCHC (RBC) [Mass/Vol] 33.6 g/dL 32-36 [facility] No Panel InformationOrdered By: Dr. Cannon on 08-23-2022 Estimated Creatinine Clearance Calc 29.64 ml/min [facility] Estimated GFR (MDRD) Amer 257 mL/min >60 [facility] Comment on above: GFR Calc Estimated GFR (MDRD) Non-Af Amer 213 mL/min >60 [facility] Comment on above: Non- GFR Calc Platelets bldOrdered By: Dr. Cannon on 08-23-2022 Platelets (Bld) [#/Vol] 150 10*3/uL 150-450 [facility] Serum or plasma calcium odalys urement (mass/volume)Ordered By: Dr. Cannon on 08-23-2022 Calcium [Mass/Vol] 8.5 mg/dL 8.5-10.1 [facility] Serum or plasma creatinine m easurement (mass/volume)Ordered By: Dr. Cannon on 08-23-2022 Creatinine [Mass/Vol] 0.32 mg/dL 0.55-1.02 [facility] Comment on above: The validity of the calculated GFR & GFRAA in patients over 70 years has not been determined. Clinical correlation is essential. Serum or plasma urea nitroge n measurement (mass/volume)Ordered By: Dr. Cannon on 08-23-2022 Urea nitrogen [Mass/Vol] 22 mg/dL 7-18 [facility] Thin prep Papanicolaou smear with manual screeningOrdered By: Dr. Cannon on 08-23-2022 Thin prep Papanicolaou smear with manual screening 5 5-15 [facility] - Microbiology an d Antimicrobial susceptibilityOrdered By: Dr. Macedo on 08-21-2022 Bacteria identified Cx Nom (Bld) No growth in 5 days. [facility] Culture, urineOrdered By: Dr Ema Macedo on 08-18-2022 Bacteria identified Cx Nom (U) Culture exhibits no growth. [facility] Basophil percentageOrdered B y: Dr. Shah on 03-14-2023 Basophil percentage 3.8 mg/dL 2.5-4.9 [facility] Basophil percentageOrdered B y: Dr. Rico on 08-17-2022 Bilirubin [Mass/Vol] 0.80 mg/dL 0.20-1.00 [facility] Comment on above: For patients on eltr ombopag therapy, use of Dimension [place] TBIL is not recommended. Cholesterol [Mass/Vol] 159 mg/dL <200 [facility] Comment on above: <200 mg/dL Desirable 200-240 mg/dL Borderline >240 mg/dL High Risk Protein [Mass/Vol] 6.3 g/dL 6.4-8.2 [facility] Triglyceride [Mass/Vol] 63 mg/dL <199 [facility] Comment on above: The drugs N-Acetylcy steine and Metamizole may falsely depress this assay.Serum Triglycerides Reference Interval Normal <150 mg/dL Borderline high 150 - 199 mg/dL High 200 - 499 mg/dL Very High > or = 500 mg/dL Laboratory - Chemistry and C hemistry - challengeOrdered By: Dr. Rico on 08-17-2022 ALP [Catalytic activity/Vol] 53 U/L 45-117 [facility] ALT [Catalytic activity/Vol] 38 U/L 13-56 [facility] Globulin (S) [Mass/Vol] 2.4 g/dL 2.2-4.2 [facility] Laboratory - Chemistry and C hemistry - challengeOrdered By: Dr. Shah on 08-17-2022 Free T4 [Mass/Vol] 1.27 ng/dL 0.76-1.46 [facility] Magnesium [Mass/Vol] 2.0 mg/dL 1.6-2.6 [facility] No Panel InformationOrdered By: Dr. Shah on 08-17-2022 Free Triiodothyronine (T3) pg/dL 1.8 pg/mL 2.18-3.98 [facility] Serum or plasma albumin odalys urement (mass/volume)Ordered By: Dr. Rico on 08-17-2022 Albumin [Mass/Vol] 3.9 g/dL 3.2-5.0 [facility] Serum or plasma albumin/glob ulin mass ratioOrdered By: Dr. Rico on 08-17-2022 Albumin/Globulin [Mass ratio] 1.6 {ratio} 0.9-2.4 [facility] Serum or plasma cholesterol in HDL measurement (mass/volume)Ordered By: Dr. Rico on 08-17-2022 Cholesterol in HDL [Mass/Vol] 80 mg/dL >40 [facility] Comment on above: The drugs N-Acetylcy steine and Metamizole may falsely depress this assay. Reference Range HDL <40 mg/dL Low HDL Cholesterol HDL >or= 60 mg/dL High HDL Cholesterol Serum or plasma cholesterol in VLDL measurement (mass/volume)Ordered By: Dr. Rico on 08-17-2022 Cholesterol in VLDL [Mass/Vol] 13 mg/dL 5-40 [facility] Serum or plasma low density lipoprotein (LDL) cholesterol measurement (mass/volume)Ordered By: Dr. Rico on 08-17-2022 Cholesterol in LDL [Mass/Vol] 66 mg/dL 0-130 [facility] Thin prep Papanicolaou smear with manual screeningOrdered By: Dr. Rico on 08-17-2022 Thin prep Papanicolaou smear with manual screening 48 U/L 15-37 [facility] Absolute lymphocyte countOrd ered By: Dr. Macedo on 08-16-2022 Lymphocytes Auto (Unsp spec) [#/Vol] 0.97 10*3/uL 0.83-4.51 [facility] Base excessOrdered By: Dr. Keven yancey on 08-16-2022 Base excess Calc (BldV) [Moles/Vol] 6 mmol/L -2-2 [facility] Basophil percentageOrdered B y: Dr. Macedo on 08-16-2022 Lactate [Moles/Vol] 0.7 mmol/L 0.4-2.0 [facility] Basophil percentage 31.0 mmol/L 22-26 [facility] Basophils/100 WBC (Bld) 95 % 95-99 [facility] Basophil percentage 0 SEEN /hpf 0-5 [facility] Basophil percentage < 10.0 umol/L 11-32 [facility] Lactate [Moles/Vol] 2.1 mmol/L 0.4-2.0 [facility] Comment on above: Critical Result(s) C alled at: 14:25:12 08/16/2022 by: Kayley Raygoza. Results read back by same. Basophils/100 WBC (Bld) 1.2 % 0-1 [facility] Bilirubin [Mass/Vol] 0.50 mg/dL 0.20-1.00 [facility] Comment on above: For patients on eltr ombopag therapy, use of Dimension [place] TBIL is not recommended. Chloride [Moles/Vol] 89 mmol/L 98-107 [facility] Eosinophils/100 WBC (Bld) 1.5 % 0-5 [facility] Glucose [Mass/Vol] 135 mg/dL 74-106 [facility] Comment on above: Fasting Glucose resu lt greater than or equal to 126 mg/dL suggests DIABETES MELLITUS per A.D.A. criteria. Neutrophils (Bld) [#/Vol] 2.4 10*3/uL 2.0-7.7 [facility] Neutrophils/100 WBC (Bld) 59.9 % 47-70 [facility] Potassium [Moles/Vol] 3.6 mmol/L 3.5-5.1 [facility] Protein [Mass/Vol] 6.6 g/dL 6.4-8.2 [facility] Sodium [Moles/Vol] 127 mmol/L 136-145 [facility] WBC (Bld) [#/Vol] 4.0 10*3/uL 4.4-11.0 [facility] Bilirubin Test strip Ql (U)O rdered By: Dr. Macedo on 08-16-2022 Bilirubin Ql (U) Negative Negative [facility] Blood erythrocytes count (nu mber/volume)Ordered By: Dr. Macedo on 08-16-2022 RBC (Bld) [#/Vol] 4.04 10*6/uL 4.2-5.4 [facility] Blood hemoglobin measurement (mass/volume)Ordered By: Dr. Macedo on 08-16-2022 Hemoglobin (Bld) [Mass/Vol] 13.3 g/dL 12.0-15.0 [facility] Blood lymphocytes/100 leukoc ytesOrdered By: Dr. Macedo on 08-16-2022 Lymphocytes/100 WBC (Bld) 24.2 % 19-41 [facility] Blood monocytes/100 leukocyt esOrdered By: Dr. Macedo on 08-16-2022 Monocytes/100 WBC (Bld) 12.7 % 0-10 [facility] Blood platelet mean volumeOr dered By: Dr. Macedo on 08-16-2022 Platelet mean volume (Bld) [Entitic vol] 10.1 fL 6.2-12.0 [facility] CO2 (BldA) [Partial pressure ]Ordered By: Dr. Macedo on 08-16-2022 CO2 (Bld) [Partial pressure] 49.3 mm[Hg] 35-45 [facility] Culture, urineOrdered By: Kapil Macedo on 08-16-2022 Bacteria identified Cx Nom (U) Culture exhibits no growth. [facility] Determination of erythrocyte mean corpuscular volume (MCV)Ordered By: Dr. Macedo on 08-16-2022 MCV (RBC) [Entitic vol] 95.0 fL 81-99 [facility] Direct bilirubinOrdered By: Dr. Macedo on 08-16-2022 Bilirubin.direct [Mass/Vol] 0.18 mg/dL 0.00-0.30 [facility] Glucose Glucometer (dC) [M ass/Vol]Ordered By: Dr. Shah on 08-16-2022 Glucose [Mass/Vol] 102 mg/dL 74-106 [facility] Comment on above: MANAGEMENT OF PATIEN T CARE PER NURSING PROTOCOL Hematocrit Auto (Bld) [Volum e fraction]Ordered By: Dr. Macedo on 08-16-2022 Hematocrit (Bld) [Volume fraction] 38.4 % 37-47 [facility] INR in Blood by Coagulation assayOrdered By: Dr. Macedo on 08-16-2022 INR Coag (Bld) [Relative time] 1.1 {INR} [facility] Influenza virus A and B and SARS-CoV-2 (COVID-19) Ag panel - Upper respiratory specimOrdered By: Dr. Macedo on 08-16-2022 SARS-CoV-2 (COVID-19) RNA SAPPHIRE+probe Ql (Resp) [facility] Ketones Test strip Ql (U)Ord ered By: Dr. Macedo on 03-13-2023 Ketones Ql (U) Negative Negative [facility] Laboratory - Chemistry and C hemistry - challengeOrdered By: Dr. Rico on 08-16-2022 Cobalamin (Vitamin B12) [Mass/Vol] 580 pg/mL 211-911 [facility] - Chemistry and C hemistry - challengeOrdered By: Dr. Macedo on 08-16-2022 ALP [Catalytic activity/Vol] 64 U/L 45-117 [facility] ALT [Catalytic activity/Vol] 39 U/L 13-56 [facility] CO2 [Moles/Vol] 30.0 mmol/L 21.0-32.0 [facility] Globulin (S) [Mass/Vol] 2.4 g/dL 2.2-4.2 [facility] Urea nitrogen/Creatinine [Mass ratio] 20.2 mg/mg 10-20 [facility] - CoagulationOrde red By: Dr. Macedo on 08-16-2022 aPTT Coag (Bld) [Time] 25.6 s 24.1-36.2 [facility] PT Coag (PPP) [Time] 13.4 s 11.7-14.9 [facility] Laboratory - Drug toxicology Ordered By: Dr. Rico on 08-16-2022 Amphetamines Ql (U) Negative <1000 ng/mL [facility] Benzodiazepines Ql (U) Negative < 200 ng/mL [facility] Cannabinoids Screen Ql (U) Negative < 50 ng/mL [facility] Cocaine Ql (U) Negative < 300 ng/mL [facility] Opiates Ql (U) Negative < 300 ng/mL [facility] - Hematology and Cell countsOrdered By: Dr. Macedo on 08-16-2022 Erythrocyte distribution width (RBC) [Entitic vol] 40.1 fL 35.1-43.9 [facility] Erythrocyte distribution width (RBC) [Ratio] 11.5 % 11.6-14.6 [facility] Immature granulocytes/100 WBC (Bld) 0.500 % 0.0-0.9 [facility] Comment on above: IG% - Immature Granu locytes (promyelocytes, myelocytes and metamyelocytes) > 1% indicates that a LEFT SHIFT is Present. MCH (RBC) [Entitic mass] 32.9 pg 27.0-32.0 [facility] Nucleated RBC/100 WBC (Bld) [Ratio] 0 % 0-5 [facility] - Microbiology an d Antimicrobial susceptibilityOrdered By: Kalin Macedo on 08-16-2022 Bacteria identified Cx Nom (Bld) [facility] [Mass/Vol]Or dered By: Dr. Macedo on 08-16-2022 MCHC (RBC) [Mass/Vol] 34.6 g/dL 32-36 [facility] Mucus LM Ql (Urine sed)Order ed By: Dr. Macedo on 08-16-2022 Mucus Ql (Urine sed) 0 SEEN /hpf [facility] Nitrite Test strip Ql (U)Ord ered By: Dr. Macedo on 08-16-2022 Nitrite Ql (U) Negative Negative [facility] No Panel InformationOrdered By: Dr. Rico on 08-16-2022 Ethyl Alcohol Level < 3.0 mg/dL [facility] Comment on above: The serum:whole bloo d ethanol ratio is approximately 1.14and varies slightly with hematocrit. Medical Alcohol reference interval and critical value innon-tolerant individuals; 50 - 100 Impairment 100 Intoxication 100 - 250 Severe Poisoning 250 - 400 Deep/possible fatal coma MDMA (Ecstasy) Screen Negative < 500 ng/mL [facility] Urine Barbiturates Screen Negative < 200 ng/mL [facility] Urine Drug Screen Comment [facility] Comment on above: CONFIRMATORY TESTING FOR ALL POSITIVE URINE DRUG SCREENRESULTS WILL ONLY BE SENT OUT UPON PHYSICIAN ORDER. VISTA Urine Drug Screen methods provide only preliminaryanalytical test results. A more specific alternate chemicalmethod must be used in order to obtain a confirmedanalytical result. Gas chromatography/mass spectrometery(GC/MS) is the preferred confirmatory method. Clinicalconsideration and professional judgement should be appliedto any drug of abuse test result, particularly whenpreliminary positive results are used. URINE TCA TESTING MUST BE ORDERED SEPARATELY. USE TESTMNEMONIC: [facility] Urine Methadone Screen Negative < 300 ng/mL [facility] Thyroid Stimulating Hormone (TSH) 8.14 uIU/mL 0.358-3.74 [facility] No Panel InformationOrdered By: Dr. Macedo on 08-16-2022 Blood Gas Specimen Type ART [facility] Blood Gas Total CO2 33 mmol/L [facility] Oxygen Delivery Device Room Air [facility] Estimated Creatinine Clearance Calc 30.81 ml/min [facility] Estimated GFR (MDRD) Amer 155 mL/min >60 [facility] Comment on above: GFR Calc Estimated GFR (MDRD) Non-Af Amer 128 mL/min >60 [facility] Comment on above: Non- GFR Calc Troponin I High Sensitivity 8 pg/mL 3.0-54.0 [facility] Comment on above: Please Note: New Nora t Units and Gender Specific Reference Ranges. For more information see Policy Stat Procedure [place] High Sensitivity Troponin (TNIH) and attachments. Oxygen (BldA) [Partial press ure]Ordered By: Dr. Macedo on 08-16-2022 Oxygen (Bld) [Partial pressure] 78 mmHG 75-100 [facility] Platelets bldOrdered By: Dr. Macedo on 08-16-2022 Platelets (Bld) [#/Vol] 177 10*3/uL 150-450 [facility] Protein Test strip Ql (U)Ord ered By: Dr. Macedo on 08-16-2022 Protein Ql (U) Negative Negative [facility] Serum or plasma albumin odalys urement (mass/volume)Ordered By: Dr. Macedo on 08-16-2022 Albumin [Mass/Vol] 4.2 g/dL 3.2-5.0 [facility] Serum or plasma calcitriol m easurement (mass/volume)Ordered By: Dr. Rico on 08-16-2022 1,25-dihydroxyvitamin D3 [Mass/Vol] 90.7 pg/mL 24.8-81.5 [facility] Comment on above: Performed at: [address] [id number] Director: Ni Arellano MD, Phone: [phone] Serum or plasma calcium odalys urement (mass/volume)Ordered By: Dr. Macedo on 08-16-2022 Calcium [Mass/Vol] 8.8 mg/dL 8.5-10.1 [facility] Serum or plasma creatinine m easurement (mass/volume)Ordered By: Dr. Macedo on 08-16-2022 Creatinine [Mass/Vol] 0.50 mg/dL 0.55-1.02 [facility] Comment on above: The validity of the calculated GFR & GFRAA in patients over 70 years has not been determined. Clinical correlation is essential. Serum or plasma folate measu rement (mass/volume)Ordered By: Dr. Rico on 08-16-2022 Folate [Mass/Vol] 28.70 ng/mL 3.1-55.4 [facility] Serum or plasma urea nitroge n measurement (mass/volume)Ordered By: Dr. Macedo on 08-16-2022 Urea nitrogen [Mass/Vol] 10 mg/dL 7-18 [facility] Squamous epithelial cells de tection in urine sediment by light microscopyOrdered By: Dr. Macedo on 08-16-2022 Epithelial cells.squamous LM Ql (Urine sed) 0 SEEN /hpf 5-10 [facility] Thin prep Papanicolaou smear with manual screeningOrdered By: Dr. Rico on 08-16-2022 Thin prep Papanicolaou smear with manual screening 270 mOsm/KG 280-301 [facility] Thin prep Papanicolaou smear with manual screeningOrdered By: Dr. Macedo on 08-16-2022 Thin prep Papanicolaou smear with manual screening 29 U/L 15-37 [facility] Thin prep Papanicolaou smear with manual screening 8 5-15 [facility] Urine blood detectionOrdered By: Dr. Macedo on 08-16-2022 RBC Ql (U) Negative Negative [facility] RBC Ql (U) 0 SEEN /hpf 0-5 [facility] Urine clarityOrdered By: Dr. Macedo on 08-16-2022 Clarity (U) Clear Clear [facility] Urine color determinationOrd ered By: Dr. Macedo on 08-16-2022 Color (U) Yellow Yellow [facility] Urine glucose detectionOrder ed By: Dr. Macedo on 08-16-2022 Glucose Ql (U) Normal mg/dl Normal [facility] Urine leukocyte esterase det ection by dipstickOrdered By: Dr. Macedo on 08-16-2022 Leukocyte esterase Test strip Ql (U) Negative Negative [facility] Urine pHOrdered By: Dr. Tao martinez on 08-16-2022 pH (U) 8.0 [pH] 5.0 - 8.0 [facility] Urine phencyclidine (PCP) de tectionOrdered By: Dr. Rico on 08-16-2022 Phencyclidine Ql (U) Negative < 25 ng/mL [facility] Urine sediment bacteria coun t by microscopy (number/high power field)Ordered By: Dr. Macedo on 08-16-2022 Bacteria LM.HPF (Urine sed) [#/Area] 0 /[HPF] None Seen [facility] Urine specific gravity measu rementOrdered By: Dr. Macedo on 08-16-2022 Specific gravity (U) [Rel density] 1.015 1.002-1.030 [facility] Urobilinogen Auto test strip Ql (U)Ordered By: Dr. Macedo on 08-16-2022 Urobilinogen Ql (U) Normal mg/dl Normal [facility] pH measurementOrdered By: Dr Ema Macedo on 08-16-2022 pH (Unsp spec) 7.41 [pH] 7.35-7.45 [facility] CNTHERAPYon 05-03-2022 CNTHERAPY OT/PT/Speech Visit (PTWS) -------- NURSERADHA ([id number]) 1945 F Date Time Provider Department 05/03/22 3:30 PM KAILEE MATA PTWS Date Time Provider Department [place] 05/03/2022 3:30 PM [id number] MATA PTWS [facility] Reason for Visit: PT Progress Note [1596] PT Discharge [752] Primary Visit Diagnosis:Pain in left hip [M25.552] Allergies As of Date: 05/03/2022 (Not on File) Date Reviewed: 02/24/2022 Reviewed by: Hortencia Khan LPN - Fully Assessed Prescriptions as of 05/03/2022 - buspirone HCl (BUSPAR ORAL) - gabapentin (NEURONTIN) 100 mg capsule - Fluorouracil 5 % cream apply to THE NOSE AND RIGHT CHEEK TWICE DAILY FOR 2 WEEKS - triamcinolone acetonide (KENALOG) 0.1 % cream apply to affected area OF THE BODY TWICE DAILY FOR 2 WEEKS THEN H... (REFER TO PRESCRIPTION NOTES). -------- [facility] CNTHERAPYon 04-26-2022 CNTHERAPY OT/PT/Speech Visit (PTWS) -------- NURSE,RADHA Marcus ([id number]) 1945 F Date Time Provider Department 04/26/22 2:45 PM NIA MORTON Date Time Provider Department [place] 04/26/2022 2:45 PM [id number], MARIAH PTTORY Gregorio Reason for Visit: Physical Therapy [503] Primary Visit Diagnosis:Pain in left hip [M25.552] Allergies As of Date: 04/26/2022 (Not on File) Date Reviewed: 02/24/2022 Reviewed by: Hortencia Khan LPN - Fully Assessed Prescriptions as of 04/26/2022 - buspirone HCl (BUSPAR ORAL) - gabapentin (NEURONTIN) 100 mg capsule - Fluorouracil 5 % cream apply to THE NOSE AND RIGHT CHEEK TWICE DAILY FOR 2 WEEKS - triamcinolone acetonide (KENALOG) 0.1 % cream apply to affected area OF THE BODY TWICE DAILY FOR 2 WEEKS THEN H... (REFER TO PRESCRIPTION NOTES). -------- [facility] CNTHERAPYon 04-19-2022 CNTHERAPY OT/PT/Speech Visit (PTWS) -------- NURSE,RADHA Marcus ([id number]) 1945 F Date Time Provider Department 04/19/22 2:45 PM NIA MORTON Date Time Provider Department [place] 04/19/2022 2:45 PM [id number] MORTON Reason for Visit: Physical Therapy [503] Primary Visit Diagnosis:Pain in left hip [M25.552] Allergies As of Date: 04/19/2022 (Not on File) Date Reviewed: 02/24/2022 Reviewed by: Hortencia Khan LPN - Fully Assessed Prescriptions as of 04/19/2022 - buspirone HCl (BUSPAR ORAL) - gabapentin (NEURONTIN) 100 mg capsule - Fluorouracil 5 % cream apply to THE NOSE AND RIGHT CHEEK TWICE DAILY FOR 2 WEEKS - triamcinolone acetonide (KENALOG) 0.1 % cream apply to affected area OF THE BODY TWICE DAILY FOR 2 WEEKS THEN H... (REFER TO PRESCRIPTION NOTES). -------- [facility] CNTHERAPYon 04-12-2022 CNTHERAPY OT/PT/Speech Visit (PTWS) -------- NURSERADHA ([id number]) 1945 F Date Time Provider Department 04/12/22 2:00 PM NIA MORTON Date Time Provider Department [place] 04/12/2022 2:00 PM [id number] MORTON Reason for Visit: Physical Therapy [503] Primary Visit Diagnosis:Pain in left hip [M25.552] Allergies As of Date: 04/12/2022 (Not on File) Date Reviewed: 02/24/2022 Reviewed by: Hortencia Khan LPN - Fully Assessed Prescriptions as of 04/12/2022 - buspirone HCl (BUSPAR ORAL) - gabapentin (NEURONTIN) 100 mg capsule - Fluorouracil 5 % cream apply to THE NOSE AND RIGHT CHEEK TWICE DAILY FOR 2 WEEKS - triamcinolone acetonide (KENALOG) 0.1 % cream apply to affected area OF THE BODY TWICE DAILY FOR 2 WEEKS THEN H... (REFER TO PRESCRIPTION NOTES). -------- [facility] CNTHERAPYon 04-05-2022 CNTHERAPY OT/PT/Speech Visit (PTWS) -------- NURSERADHA ([id number]) 1945 F Date Time Provider Department 04/05/22 3:30 PM KAILEE MATA PTWS Date Time Provider Department Center 04/05/2022 3:30 PM [id number] MATA PTWS [place] Reason for Visit: PT Progress Note [1596] Primary Visit Diagnosis:Pain in left hip [M25.552] Allergies As of Date: 04/05/2022 (Not on File) Date Reviewed: 02/24/2022 Reviewed by: Hortencia Khan LPN - Fully Assessed Prescriptions as of 04/05/2022 - buspirone HCl (BUSPAR ORAL) - gabapentin (NEURONTIN) 100 mg capsule - Fluorouracil 5 % cream apply to THE NOSE AND RIGHT CHEEK TWICE DAILY FOR 2 WEEKS - triamcinolone acetonide (KENALOG) 0.1 % cream apply to affected area OF THE BODY TWICE DAILY FOR 2 WEEKS THEN H... (REFER TO PRESCRIPTION NOTES). -------- [facility] CNTHERAPYon 03-29-2022 CNTHERAPY OT/PT/Speech Visit (PTWS) -------- NURSERADHA ([id number]) 1945 F Date Time Provider Department 03/29/22 2:00 PM NIA MORTON PTWS Date Time Provider Department Center 03/29/2022 2:00 PM [id number] MORTON Reason for Visit: Physical Therapy [503] Primary Visit Diagnosis:Pain in left hip [M25.552] Allergies As of Date: 03/29/2022 (Not on File) Date Reviewed: 02/24/2022 Reviewed by: Hortencia Khan LPN - Fully Assessed Prescriptions as of 03/29/2022 - buspirone HCl (BUSPAR ORAL) - gabapentin (NEURONTIN) 100 mg capsule - Fluorouracil 5 % cream apply to THE NOSE AND RIGHT CHEEK TWICE DAILY FOR 2 WEEKS - triamcinolone acetonide (KENALOG) 0.1 % cream apply to affected area OF THE BODY TWICE DAILY FOR 2 WEEKS THEN H... (REFER TO PRESCRIPTION NOTES). -------- [facility] CNTHERAPYon 03-22-2022 CNTHERAPY OT/PT/Speech Visit (PTWS) -------- NURSERADHA ([id number]) 1945 F Date Time Provider Department 03/22/22 2:00 PM NIA MORTON Date Time Provider Department [place] 03/22/2022 2:00 PM [id number] MORTON Reason for Visit: Physical Therapy [503] Primary Visit Diagnosis:Pain in left hip [M25.552] Allergies As of Date: 03/22/2022 (Not on File) Date Reviewed: 02/24/2022 Reviewed by: Hortencia Khan LPN - Fully Assessed Prescriptions as of 03/22/2022 - buspirone HCl (BUSPAR ORAL) - gabapentin (NEURONTIN) 100 mg capsule - Fluorouracil 5 % cream apply to THE NOSE AND RIGHT CHEEK TWICE DAILY FOR 2 WEEKS - triamcinolone acetonide (KENALOG) 0.1 % cream apply to affected area OF THE BODY TWICE DAILY FOR 2 WEEKS THEN H... (REFER TO PRESCRIPTION NOTES). -------- [facility] CNTHERAPYon 03-15-2022 CNTHERAPY OT/PT/Speech Visit (PTWS) -------- NURSE,RADHA Marcus ([id number]) 1945 F Date Time Provider Department 03/15/22 2:45 PM NIA MORTON PTTORY Date Time Provider Department [place] 03/15/2022 2:45 PM [id number], MARIAH PTTORY Gregorio Reason for Visit: Physical Therapy [503] Primary Visit Diagnosis:Pain in left hip [M25.552] Allergies As of Date: 03/15/2022 (Not on File) Date Reviewed: 02/24/2022 Reviewed by: Hortecnia Khan LPN - Fully Assessed Prescriptions as of 03/15/2022 - buspirone HCl (BUSPAR ORAL) - gabapentin (NEURONTIN) 100 mg capsule - Fluorouracil 5 % cream apply to THE NOSE AND RIGHT CHEEK TWICE DAILY FOR 2 WEEKS - triamcinolone acetonide (KENALOG) 0.1 % cream apply to affected area OF THE BODY TWICE DAILY FOR 2 WEEKS THEN H... (REFER TO PRESCRIPTION NOTES). -------- [facility] CNTHERAPYon 03-08-2022 CNTHERAPY OT/PT/Speech Visit (PTWS) -------- NURSE,RADHA Marcus ([id number]) 1945 F Date Time Provider Department 03/08/22 11:15 AM KAILEE MATA PTTORY Date Time Provider Department [place] 03/08/2022 11:15 AM [id number] MATA PTTORY [facility] Reason for Visit: PT Eval [747] Primary Visit Diagnosis:Pain in left hip [M25.552] Allergies As of Date: 03/08/2022 (Not on File) Date Reviewed: 02/24/2022 Reviewed by: Hortencia Khan LPN - Fully Assessed Prescriptions as of 03/10/2022 - buspirone HCl (BUSPAR ORAL) - gabapentin (NEURONTIN) 100 mg capsule - Fluorouracil 5 % cream apply to THE NOSE AND RIGHT CHEEK TWICE DAILY FOR 2 WEEKS - triamcinolone acetonide (KENALOG) 0.1 % cream apply to affected area OF THE BODY TWICE DAILY FOR 2 WEEKS THEN H... (REFER TO PRESCRIPTION NOTES). -------- [facility] XR HIP 3V PELV+ AP/LAT LTon 02-25-2022 XR HIP 3V PELV+ AP/LAT LT * * *Final Report* * * DATE OF EXAM: Feb 25 2022 11:16AM [id number] [id number] - XR HIP 3V PELV+ AP/LAT LT / PROCEDURE REASON: Pain in left hip * * * * Physician Interpretation * * * * EXAMINATION: XR HIP 3V PELV+ AP/LAT LT PATIENT/TECHNOLOGIST PROVIDED HISTORY: had a bone scan 2 months ago and says they pressed her leg in and has pain since in left posterior hip no inj CLINICAL INFORMATION: 76 years old Female with Pain in left hip. Left hip pain x 2 months after positioning for bone scan, eval for osseous etiology TECHNIQUE: XR HIP 3V PELV+ AP/LAT LT Laterality: LEFT Number of different views (projections): 3 COMPARISON: None RESULT: Mild LEFT hip osteoarthritis with chondrocalcinosis. Mild degenerative change RIGHT hip. Pubic symphysis chondrocalcinosis. Mild degenerative change at the sacroiliac joints. Degenerative change lower lumbar spine. No fracture. IMPRESSION: Mild LEFT hip osteoarthritis with chondrocalcinosis. Rig Hand: JOSLYN Transcribe Date/Time: Feb 26 2022 1:50P Dictated by : UMANG GALVEZ DO This examination was interpreted and the report reviewed and electronically signed by: UMANG GALVEZ DO on Feb 26 2022 1:53PM EST [id number] [facility] CNOVon 02-24-2022 CNOV Office Visit (SPNMMN ) -------- NURSE,RADHA Marcus ([id number]) 1945 F Date Time Provider Department 02/24/22 1:40 PM AME ARMENTA During your visit today, we recorded the following information about you: Pulse Respiration Blood pressure Weight 78/minute 14/minute 135/51 42.6 kg Height 1.588 m Ame Armenta DO 02/25/2022 9:00 PM Signed Spine Care Path Initial Exam CC: left hip pain SUBJECTIVE HISTORY OF PRESENT ILLNESS: Radha Abad is a 76 year old female who presents with a chief complaint of left hip pain Other Issues Addressed at the Visit Today: None. Precipitating Event: Positioning for bone scan 12/25 Pain was after being forced into internal rotation position for scan. The pain increased over the days, and now is not getting better. She still goes on her walks, but has trouble with chores, bending, sleeping. Sitting PAIN EVALUATION 02/24/2022 1332 Pain Level: 4 Pain Location: Buttocks-Left pain worse when sitting and laying down Description: Tingling;Sharp Duration Amount of Time: 2.5 Duration Units: Months Frequency: Continuous Intervention/Comfort measure: Medication;Exercise Pain Radiation:Left buttock to upper thigh Aggravating Factors: bending forward Alleviating Factors: self massage Litigation: No Workers' Compensation: No YELLOW AND BLUE FLAGS No-Neg Attitude; Back Pain is Disabling No-Avoiding Activity (for Fear of Pain) No-Depression or Anxiety Disorders No-Social Problems No-Substance Use Disorder No-Job Dissatisfaction No-Financial Disincentives Patient Entered Questionnaires Spine Questions 02/22/2022 Pain Location: Lower back Pain Duration: 1-3 months Symptoms from neck/cervical spine: No Employment Status: Retired Involved in law suit/legal claim: No Spine Red Flags 02/22/2022 Any type of cancer: No Unexplained fever: No Bowel or bladder disfunction: No Unintentional weight loss: No PROMIS Score Percentiles Physical Health 02/22/2022 Physical Function Percentile 21* Sleep Percentile 10 Fatigue Percentile 18* Pain Interference Percentile 5 PROMIS SOCIAL ROLE SCORE 02/22/2022 Social Role Satisfaction Percentile 16* PROMIS Global Health Scale 02/22/2022 Physical Health Percentile 22* Mental Health Percentile 13 Percentiles provide an indication of how the patient's score ranks in relation to the general population. Higher percentile rankings indicate better function/quality of life. 50th percentile is the average of the general population and indicates half of respondents had a worse score. Depression Screening: PHQ-9 02/22/2022 Score 12 PHQ-9 Self Harm 02/22/2022 Question 9 Not at all PHQ-9 Self-Harm (Item 9) response options: 0 Not at all 1 Several days 2 More than half the days 3 Nearly every day PHQ-9 Levels: 0-4 No - mild depression 5-9 Mild depression 10-14 Moderate depression 15-19 Moderately severe depression 20-27 Severe depression There is no problem list on file for this patient. No past medical history on file. No past surgical history on file. Social History Tobacco Use Smoking status: Former Types: Cigarettes Smokeless tobacco: Never Substance Use Topics Alcohol use: Yes No family history on file. ALLERGIES Not on File CURRENT MEDICATIONS: buspirone HCl (BUSPAR ORAL) gabapentin (NEURONTIN) 100 mg capsule Fluorouracil 5 % cream apply to THE NOSE AND RIGHT CHEEK TWICE DAILY FOR 2 WEEKS triamcinolone acetonide (KENALOG) 0.1 % cream apply to affected area OF THE BODY TWICE DAILY FOR 2 WEEKS THEN H... (REFER TO PRESCRIPTION NOTES). REVIEW OF SYSTEMS: PAIN ASSESSMENT: See HPI. GENERAL: Denies fever, chills malaise and weight loss. HEENT: No recent change in vision or hearing. CARDIOVASCULAR: Denies chest pain, history of A-fib, valvular disease, or pacemaker/ICD. RESPIRATORY: Denies SOB, sputum production, and hemoptysis. GI: Denies GI ulcers, inflammatory disease, or liver disease. : Denies change in frequency or urgency, kidney disease, and burning with urination. MUSCULOSKELETAL: Positive for injury and joint pain SKIN: Denies rash or itching. PSYCHOLOGICAL: Denies uncontrolled depression or anxiety. NEURO: Denies CVA, seizures, headaches. ENDOCRINE: Denies diabetes, thyroid disease. HEMATOLOGY/LYMPHOLOGY: Denies cancer, bleeding or clotting disorders, anemia,and DVT's. ALLERGIC/IMMUNOLOGICAL: Denies risks for infection, or recent MRSA infections. OBJECTIVE: PHYSICAL EXAM BP 135/51 Pulse 78 Resp 14 Ht 158.8 cm (5' 2.5) Wt 42.6 kg (94 lb) SpO2 100% BMI 16.92 kg/m? GENERAL APPEARANCE: Thin. NEURO PSYCH: Patient oriented to person, place, and time. Mood pleasant. Benign affect. CARDIOVASCULAR: Palpable pulses. No edema noted. No varicosities. SKIN: Head, neck, trunk, and extremities dry, intact and without lesions. LYMPHATI (more content not included)... [facility] Vital Signs Date Time Vital Sign Value Performing Clinician Faci lity 10-28-2024 10:00-0400 Body temperature 97.9 [degF] Jamal Johns MD Work Phone: [facility] 10-28-2024 10:00-0400 Diastolic blood pressure 60 mm[Hg] Jamal Johns MD Work Phone: [facility] 10-28-2024 10:00-0400 Heart rate 81 /min Jamal Johns MD Work Phone: [facility] 10-28-2024 10:00-0400 Respiratory rate 16 /min Jamal Johns MD Work Phone: [facility] 10-28-2024 10:00-0400 SaO2% (BldA) [Mass fraction] 98 % Jamal Jonhs MD Work Phone: [facility] 10-28-2024 10:00-0400 Systolic blood pressure 122 mm[Hg] Jamal Johns MD Work Phone: [facility] 10-28-2024 05:32-0400 Body mass index (BMI) [Ratio] 15.9 kg/m2 Jamal Johns MD Work Phone: [facility] 10-28-2024 05:32-0400 Body weight 40.2 kg Jamal Johns MD Work Phone: [facility] 10-26-2024 13:55-0400 Body height 158.75 cm Jamal Johns MD Work Phone: [facility] 08-03-2023 11:36-0500 Body temperature 98 [degF] DO Chata Barton Work Phone: [facility] 08-03-2023 11:36-0500 Diastolic blood pressure 70 mm[Hg] DO Chata Gradyer Work Phone: [facility] 08-03-2023 11:36-0500 Heart rate 73 /min DO Chata Gradyer Work Phone: [facility] 08-03-2023 11:36-0500 SaO2% (BldA) [Mass fraction] 100 % DO Chata Oralia Work Phone: [facility] 08-03-2023 11:36-0500 Systolic blood pressure 110 mm[Hg] DO Chata Oralia Work Phone: [facility] 05-24-2023 14:06-0500 Body height 157.48 cm DO Chata Oralia Work Phone: [facility] 05-24-2023 14:06-0500 Body mass index (BMI) [Ratio] 17.3 kg/m2 DO Chata Oralia Work Phone: [facility] 05-24-2023 14:06-0500 Body temperature 97.8 [degF] DO Chata Oralia Work Phone: [facility] 05-24-2023 14:06-0500 Body weight 42.92 kg DO Chata Oralia Work Phone: [facility] 05-24-2023 14:06-0500 Diastolic blood pressure 64 mm[Hg] DO Chata Oralia Work Phone: [facility] 05-24-2023 14:06-0500 Heart rate 95 /min DO Chata Oralia Work Phone: [facility] 05-24-2023 14:06-0500 Respiratory rate 16 /min DO Chata Oralia Work Phone: [facility] 05-24-2023 14:06-0500 SaO2% (BldA) [Mass fraction] 99 % DO Chata Oralia Work Phone: [facility] 05-24-2023 14:06-0500 Systolic blood pressure 106 mm[Hg] DO Chata Oralia Work Phone: [facility] 09-07-2022 09:58-0400 Body height 157.48 cm DO Chata Oralia Work Phone: [facility] 09-07-2022 09:58-0400 Body mass index (BMI) [Ratio] 16.8 kg/m2 DO Chata Oralia Work Phone: [facility] 09-07-2022 09:58-0400 Body temperature 98.2 [degF] DO Chata Oralia Work Phone: [facility] 09-07-2022 09:58-0400 Body weight 41.73 kg DO Chata Oralia Work Phone: [facility] 09-07-2022 09:58-0400 Diastolic blood pressure 78 mm[Hg] DO Chata Oralia Work Phone: [facility] 09-07-2022 09:58-0400 Heart rate 67 /min DO Chata Oralia Work Phone: [facility] 09-07-2022 09:58-0400 Respiratory rate 16 /min DO Chata Oralia Work Phone: [facility] 09-07-2022 09:58-0400 SaO2% (BldA) [Mass fraction] 99 % DO Chata Oralia Work Phone: [facility] 09-07-2022 09:58-0400 Systolic blood pressure 122 mm[Hg] DO Chata Oralia Work Phone: [facility] 08-29-2022 09:41-0400 Body temperature 98.2 [degF] DO Chata Oralia Work Phone: [facility] 08-29-2022 09:41-0400 Diastolic blood pressure 47 mm[Hg] DO Chata Oralia Work Phone: [facility] 08-29-2022 09:41-0400 Heart rate 82 /min DO Chata Oralia Work Phone: [facility] 08-29-2022 09:41-0400 Respiratory rate 14 /min DO Chata Oralia Work Phone: [facility] 08-29-2022 09:41-0400 SaO2% (BldA) [Mass fraction] 97 % DO Chata Oralia Work Phone: [facility] 08-29-2022 09:41-0400 Systolic blood pressure 119 mm[Hg] DO Chata Oralia Work Phone: [facility] 08-24-2022 14:33-0400 Body height 157.48 cm DO Chata Oralia Work Phone: [facility] 08-24-2022 14:33-0400 Body weight 40.54 kg DO Chata Oralia Work Phone: [facility] 08-24-2022 09:50-0400 Body mass index (BMI) [Ratio] 16.3 kg/m2 DO Chata Oralia Work Phone: [facility] 08-23-2022 13:58-0400 Body temperature 98 [degF] DO Chata Oralia Work Phone: [facility] 08-23-2022 13:58-0400 Diastolic blood pressure 63 mm[Hg] DO Chata Oralia Work Phone: [facility] 08-23-2022 13:58-0400 Heart rate 96 /min DO Chata Oralia Work Phone: [facility] 08-23-2022 13:58-0400 Respiratory rate 16 /min DO Chatarebekah Lynchnger Work Phone: [facility] 08-23-2022 13:58-0400 SaO2% (BldA) [Mass fraction] 100 % DO Chata Oralia Work Phone: [facility] 08-23-2022 13:58-0400 Systolic blood pressure 118 mm[Hg] DO Chata Oralia Work Phone: [facility] 08-23-2022 13:52-0400 Body mass index (BMI) [Ratio] 16.3 kg/m2 DO Chata Oralia Work Phone: [facility] 08-23-2022 03:51-0400 Body weight 40.5 kg DO Chata Oralia Work Phone: [facility] 08-22-2022 11:59-0400 Body height 157.48 cm DO Chata Barton Work Phone: [facility] 08-16-2022 15:50-0400 Body temperature 98 [degF] [facility] 08-16-2022 15:50-0400 Diastolic blood pressure 74 mm[Hg] [facility] 08-16-2022 15:50-0400 Heart rate 73 /min [facility] 08-16-2022 15:50-0400 Respiratory rate 15 /min [facility] 08-16-2022 15:50-0400 SaO2% (BldA) [Mass fraction] 100 % [facility] 08-16-2022 15:50-0400 Systolic blood pressure 134 mm[Hg] [facility] 08-16-2022 14:44-0400 Inhaled oxygen flow rate 2 L/min [facility] 08-16-2022 12:52-0400 Body height 165.1 cm [facility] 08-16-2022 12:52-0400 Body mass index (BMI) [Ratio] 15.4 kg/m2 [facility] 08-16-2022 12:52-0400 Body weight 42.1 kg [facility] 02-24-2022 13:30-0400 Body height 158.8 cm Ame Armenta DO Work Phone: [facility] 02-24-2022 13:30-0400 Body weight 42.64 kg Ame Armenta DO Work Phone: [facility] 02-24-2022 13:30-0400 Diastolic blood pressure 51 mm[Hg] Ame Armenta DO Work Phone: [facility] 02-24-2022 13:30-0400 Heart rate 78 /min Ame Armenta DO Work Phone: [facility] 02-24-2022 13:30-0400 Respiratory rate 14 /min Ame Armenta DO Work Phone: [facility] 02-24-2022 13:30-0400 SaO2% (BldA) [Mass fraction] 100 % Ame Armenta DO Work Phone: [facility] 02-24-2022 13:30-0400 Systolic blood pressure 135 mm[Hg] Ame Armenta DO Work Phone: [facility] Encounters Encounter Date Encounter Type Care Provider Facility Start: 10-28-2024 Non-patient / Non-visit Dr. Laya Crisostomo DO [facility] Work Phone: Start: 10-27-2024 Non-patient / Non-visit Dr. Laya Crisostomo DO [facility] Work Phone: Start: 10-26-2024 Non-patient / Non-visit Aurelio Rogers nd, DO [facility] Start: 10-26-2024 ambulatory Onesimo Samayoa Fa cility:[facility] Start: 10-26-2024 Non-patient / Non-visit Dr. Carissa Samayoa MD -[facility] Start: 10-25-2024 ambulatory Pastor Macias ty:[facility] Start: 10-25-2024 End: 10-28-2024 Evaluation and management of inpatient Dr. Laya Crisostomo DO -[facility] Work Phone: Start: 09-25-2024 End: 09-25-2024 ambulatory Jamal Johns MD Work Phone: [facility] Work Phone: Start: 09-25-2024 End: 09-25-[address] Jaleel Farfan MD -Laboratory Work Phone: Start: 09-25-2024 End: 09-25-2024 ambulatory Jaleel Farfan Facility:[facility] Start: 09-05-2023 End: 09-05-2023 ambulatory DO Chata Barton Work Phone: [facility] Work Phone: Start: 09-05-2023 End: 09-05-2023 Patient encounter procedure DO Chata Oralia Work Phone: [facility] Work Phone: Start: 08-03-2023 End: 08-03-2023 Patient encounter procedure DO Chata Barton Work Phone: [facility] Work Phone: Start: 05-24-2023 End: 05-24-2023 Patient encounter procedure DO Chata Gradyer Work Phone: [facility] Work Phone: Start: 12-01-2022 End: 12-01-2022 ambulatory DO Chata Gradyer Work Phone: [facility] Work Phone: Start: 12-01-2022 End: 12-01-2022 Patient encounter procedure DO Chata Gradyer Work Phone: [facility] Start: 11-17-2022 End: 11-17-2022 ambulatory DO Chata Gradyer Work Phone: [facility] Work Phone: Start: 11-17-2022 End: 11-17-2022 Patient encounter procedure DO Chata Gradyer Work Phone: [facility] Start: 10-22-2022 End: 10-22-2022 ambulatory DO Chata M Oralia Work Phone: [facility] Work Phone: Start: 10-22-2022 End: 10-22-2022 Patient encounter procedure DO Chata Lynchnger [facility] Start: 09-09-2022 End: 09-09-2022 ambulatory DO Chata M Oralia Work Phone: [facility] Work Phone: Start: 09-09-2022 End: 09-09-2022 Patient encounter procedure DO Chata Oralia Work Phone: [facility] Start: 09-07-2022 End: 09-07-2022 Patient encounter procedure DO Chata Oralia Work Phone: [facility] Start: 08-23-2022 End: 08-29-2022 Evaluation and management of inpatient DO Chata Oralia Work Phone: [facility] Start: 08-23-2022 Non-patient / Non-visit DO Kri stin Oralia Work Phone: [facility] Start: 08-22-2022 Non-patient / Non-visit DO Kri stin Oralia Work Phone: [facility] Start: 08-21-2022 Non-patient / Non-visit DO Kri stin Oralia Work Phone: [facility] Start: 08-20-2022 Non-patient / Non-visit DO Kri stin Oralia Work Phone: [facility] Start: 08-19-2022 Non-patient / Non-visit DO Kri stin Oralia Work Phone: [facility] Start: 08-18-2022 Non-patient / Non-visit DO Kri stin Oralia Work Phone: [facility] Start: 08-17-2022 Non-patient / Non-visit DO Kri stin Oralia Work Phone: [facility] Start: 08-17-2022 Non-patient / Non-visit DO Kri stin Oralia Work Phone: [facility] Start: 08-16-2022 End: 08-23-2022 [facility] Start: 05-03-2022 End: 05-03-2022 ambulatory AME ARMENTA Facility:[facility] Start: 05-03-2022 End: 05-03-2022 ambulatory Kailee Lemon PT [facility] Comment on above: Pain in left hip (Pr imary Dx) Start: 04-26-2022 End: 04-26-2022 ambulatory AME ARMENTA Facility:[facility] Start: 04-26-2022 End: 04-26-2022 ambulatory Nia Kashuba [employer] Work Phone: [facility] Comment on above: Pain in left hip (Pr imary Dx) Start: 04-19-2022 End: 04-19-2022 ambulatory [facility] Facility:[facility] Start: 04-19-2022 End: 04-19-2022 ambulatory Nia Kashuba [employer] ENGINE[employer] Work Phone: [facility] Comment on above: Pain in left hip (Pr imary Dx) Start: 04-12-2022 End: 04-12-2022 ambulatory Nia Kashuba [employer] ENGINE[employer] Work Phone: [facility] Comment on above: Pain in left hip (Pr imary Dx) Start: 04-05-2022 End: 04-05-2022 ambulatory [facility] Facility:[facility] Start: 04-05-2022 End: 04-05-2022 ambulatory Kailee Mata PT [facility] Comment on above: Pain in left hip (Pr imary Dx) Start: 03-30-2022 End: 03-30-2022 ambulatory AME ARMENTA Facility:[facility] Start: 03-30-2022 End: 03-30-2022 ambulatory Ame Armenta DO Work Phone: [facility] Comment on above: Pain in left hip (Pr imary Dx) Start: 03-30-2022 End: 03-30-2022 Telemedicine consultation with patient Ame Armenta DO Work Phone: [facility] Start: 03-29-2022 End: 03-29-2022 ambulatory Nia Kashuba [employer] ENGINEER Work Phone: [facility] Comment on above: Pain in left hip (Pr imary Dx) Start: 03-22-2022 End: 03-22-2022 ambulatory Nia Morton [employer] ENGINEER Work Phone: [facility] Comment on above: Pain in left hip (Pr imary Dx) Start: 03-15-2022 End: 03-15-2022 ambulatory AME ARMENTA Facility:[facility] Start: 03-08-2022 End: 03-08-2022 ambulatory KAILEE LEMON Facility:[facility] Start: 03-08-2022 End: 03-08-2022 ambulatory Kailee Lemon PT [facility] Comment on above: Pain in left hip (Pr imary Dx) Start: 02-25-2022 End: 02-25-2022 ambulatory AME ARMENTA Facility:[facility] Start: 02-25-2022 End: 02-25-2022 Subsequent hospital visit by physician [facility] Work Phone: Radiology Comment on above: Pain in left hip [M2 5.552] Start: 02-24-2022 End: 02-24-2022 ambulatory AME ARMENTA Facility:[facility] Start: 02-24-2022 End: 02-24-2022 Patient encounter procedure Ame Armenta DO Work Phone: [facility] Comment on above: Pain in left hip (Pr imary Dx) Procedures Date Procedure Procedure Detail Performing Clinician Start: 10-28-2024 Estimated creatinine clearance Jamal lott MD Work Phone: Start: 10-27-2024 Serum inorganic phosphate measurement Jamal Johns MD Work Phone: Start: 10-26-2024 Esophagogastroduodenoscopy Jamal Paredes Work Phone: Start: 10-26-2024 Total iron binding capacity measurement Jamal Johns MD Work Phone: Start: 10-26-2024 Urnls dip stick/tablet reagent auto microscopy Jamal Johns MD Work Phone: Start: 10-25-2024 Measurement of occult blood in stool specimen using immunoassay Jamal Johns MD Work Phone: Start: 10-25-2024 Osmolality measurement, serum Jamal samuel MD Work Phone: Start: 08-27-2022 Viral antigen assay DO Chata Barton Work Phone: Start: 08-23-2022 Viral antigen assay DO Chata Barton Work Phone: Start: 08-18-2022 MRI of brain with contrast DO Chata zhao Work Phone: Start: 08-18-2022 CT of head without contrast DO Chata joel Work Phone: Start: 08-18-2022 CT of pelvis without contrast DO Chata Barton Work Phone: Start: 08-17-2022 Plain x-ray of pelvis and lower extremity DO Chata Barton Work Phone: Start: 08-16-2022 Plain chest X-ray Start: 08-16-2022 Bacteria identified in Blood by Culture DO Chata Barton Work Phone: Start: 08-16-2022 Urine culture DO Chata Barton Work Phone: Start: 08-16-2022 CT angiography of head and neck Start: 08-16-2022 CT of head without contrast Start: 02-22-2022 Adult depression screening assessment Ame Armenta DO Work Phone: Bacteria identified in Blood by Culture DO Chata Barton Work Phone: SARS-CoV-2 & FLU Antigen (Rapid) Urine culture DO Chata pickard Work Phone: Plan of Treatment Date Care Activity Detail Author Start: 10-28-2024 Patient discharge [facility] Start: 10-27-2024 [facility] Start: 10-26-2024 Administration of bl ood product [facility] Start: 10-26-2024 Provision of activit y privileges [facility] Start: 10-26-2024 Application of intermittent pneumatic compression device [facility] Start: 10-25-2024 End: 10-26-2024 [facility] Start: 10-25-2024 Aspiration precautions [facility] Start: 10-25-2024 Assessment of risk o f venous thromboembolism [facility] Start: 10-25-2024 Documentation procedure [facility] Start: 10-25-2024 Insertion of cathete r into peripheral vein [facility] Start: 10-25-2024 Measuring intake and output [facility] Start: 10-25-2024 Oxygen therapy [facility] Start: 10-25-2024 Providing care accor ding to standard [facility] Start: 10-25-2024 Provision of activit y privileges [facility] Start: 10-25-2024 Referral to gastroenterology service [facility] Start: 10-25-2024 Referral to service [facility] Start: 10-25-2024 Following clinical p athway protocol [facility] Start: 10-25-2024 Admission procedure [facility] Start: 02-22-[address] [facility] assessment DEPRESSION SCREENING [facility] Start: 10-22-2022 [facility] Start: 08-30-2022 Development of care plan [facility] Start: 08-29-2022 Blood chemistry [facility] Start: 08-29-2022 Patient discharge [facility] Start: 08-28-2022 Blood chemistry [facility] Start: 08-27-2022 Blood chemistry [facility] Start: 08-26-2022 Seizure precautions [facility] Start: 08-26-2022 Blood chemistry [facility] Start: 08-25-2022 Blood chemistry [facility] Start: 08-24-2022 Developing a treatme nt plan [facility] Start: 08-24-2022 [facility] Start: 08-24-2022 Development of care plan [facility] Start: 08-24-2022 Blood chemistry [facility] Start: 08-23-2022 Following clinical p athway protocol [facility] Start: 08-23-2022 Admission procedure [facility] Start: 08-23-2022 Measuring intake and output [facility] Start: 08-23-2022 Patient referral to dietitian [facility] Start: 08-23-2022 Referral to occupati onal therapist [facility] Start: 08-23-2022 Referral to service [facility] Start: 08-23-2022 Vital signs measurements [facility] Start: 08-23-2022 End: 08-23-2022 [facility] Start: 08-23-2022 Patient discharge [facility] Start: 08-23-2022 Patient referral to dietitian [facility] Start: 08-23-2022 Speech therapy assessment [facility] Start: 08-20-2022 [facility] Start: 08-20-2022 Removal of urinary catheter [facility] Start: 08-20-2022 Provision of activit y privileges [facility] Start: 08-18-2022 Referral to occupati onal therapist [facility] Start: 08-16-2022 Following clinical p athway protocol [facility] Start: 08-16-2022 Assessment of risk o f venous thromboembolism [facility] Start: 08-16-2022 Cardiac monitoring [facility] Start: 08-16-2022 Catheterization of vein [facility] Start: 08-16-2022 Continuous pulse oximetry [facility] Start: 08-16-2022 Elevation of head of bed [facility] Start: 08-16-2022 Exercises [facility] Start: 08-16-[address]ed interventions [facility] Start: 08-16-2022 Insertion of cathete r into peripheral vein [facility] Start: 08-16-2022 Notification of physician [facility] Start: 08-16-2022 Patient referral to dietitian [facility] Start: 08-16-2022 Providing care accor ding to standard [facility] Start: 08-16-2022 Provision of activit y privileges [facility] Start: 08-16-2022 Referral to service [facility] Start: 08-16-2022 Speech therapy assessment [facility] Start: 08-16-2022 Tobacco use cessatio n education [facility] Start: 08-16-2022 [facility] Start: 08-16-2022 Verification routine [facility] Start: 03-13-2023 Admission procedure [facility] Start: 08-16-2022 End: 08-16-2022 [facility] Start: 08-16-2022 End: 08-16-2022 Blood culture [facility] Start: 08-16-2022 Oxygen therapy [facility] Start: 02-11-2022 COVID-19 VACCINE (#1) COVID-19 VACCI NE (#1) [facility] Start: 02-04-2022 Influenza vaccination INFLUENZA (#1) [facility] Start: 06-06-2021 ADVANCE DIRECTIVE DISCUSSION ADVANCE DIRECTIVE DISCUSSION [facility] Start: 06-06-2021 DEPRESSION ASSESSMENT DEPRESSION ASS ESSMENT [facility] Start: 10-17-2008 BONE DENSITY BONE DENSITY [facility] Start: 10-17-2008 PNEUMOCOCCAL: 65+ (1 - PCV) PNEUMOCOCCAL: 65+ (1 - PCV) [facility] Start: 10-17-1993 SHINGRIX VACCINE (1 of 2) GORDON GRIX VACCINE (1 of 2) [facility] Start: 10-17-1988 DIABETES SCREEN DIABETES SCREEN [facility] Start: 10-17-1962 Urine microalbumin profile DTAP,TDAP ,TD (1 - Tdap) [facility] Start: 10-17-1961 HEPATITIS C SCREENING HEPATITIS C [facility] Bacteria identified in Blood by Culture Blood Culture [facility] Bacteria identified in Urine by Culture Urine Culture [facility] Patient referral [facility] Work Phone: PT PLAN OF CARE CERTIFICATION PT PLAN OF CARE CERTIFICATION Procedures Routine Pain in left hip Ordered: 03/10/2022 [facility] Comment on above: Ordered: 03/10/2022 End: 03-26-2023 XR HIP GENERAL 3V PELV/AP/LAT LEFT XR HIP GENERAL 3V PELV/AP/LAT LEFT Radiology Routine Pain in left hip 1 Occurrences starting 02/24/2022 until 03/26/2023 [facility] Work Phone: Comment on above: 1 Occurrences starti ng 02/24/2022 until 03/26/2023 End: 02-25-2022 XR HIP GENERAL 3V PELV/AP/LAT LEFT [facility] Work Phone: Comment on above: 1 Occurrences starti ng 02/25/2022 until 02/25/2022 [facility] Immunizations Immunization Date Immunization Notes Care Provider Kristyn ramos 08-03-2023 tetanus toxoid, redu khalida diphtheria toxoid, and acellular pertussis vaccine, adsorbed DO Chata Oralia Work Phone: [facility] 03-06-2022 influenza, injectabl e, quadrivalent, preservative free DO Chata Oralia Work Phone: [facility] 03-06-2022 influenza, seasonal, injectable DO Chata Oralia Work Phone: [facility] 10-07-2021 Covid (Moderna) DO Chata W enger Work Phone: [facility] 04-03-2021 Covid (Moderna) DO Chata W enger Work Phone: [facility] 03-15-2021 influenza, injectabl e, quadrivalent, preservative free DO Chata Oralia Work Phone: [facility] 03-15-2021 influenza, seasonal, injectable DO Chata Oralia Work Phone: [facility] 09-26-2020 tetanus toxoid, redu khalida diphtheria toxoid, and acellular pertussis vaccine, adsorbed DO Chata Oralia Work Phone: [facility] 08-09-2020 Covid (Moderna) DO Chata W enger Work Phone: [facility] 07-12-2020 Covid (Moderna) DO Chata W enger Work Phone: [facility] 02-19-2020 influenza, injectabl e, quadrivalent, preservative free DO Chata Oralia Work Phone: [facility] 02-19-2020 influenza, seasonal, injectable DO Chata Oralia Work Phone: [facility] 03-12-2019 influenza, injectabl e, quadrivalent, preservative free DO Chata Oralia Work Phone: [facility] 03-12-2019 influenza, seasonal, injectable DO Chata Barton Work Phone: [facility] 06-12-2018 zoster vaccine recombinant DO Chata Barton Work Phone: [facility] 03-27-2018 zoster vaccine recombinant DO Chata Barton Work Phone: [facility] 03-16-2018 influenza, injectabl e, quadrivalent, preservative free DO Chata Barton Work Phone: [facility] 03-16-2018 influenza, seasonal, injectable DO Chata Barton Work Phone: [facility] 03-09-2014 pneumococcal conjuga te vaccine, 13 valent DO Chata Barton Work Phone: [facility] 04-09-2010 tetanus toxoid, redu khalida diphtheria toxoid, and acellular pertussis vaccine, adsorbed DO Chata Barton Work Phone: [facility] 02-05-2009 pneumococcal polysaccharide vaccine, 23 valent DO Chata Barton Work Phone: [facility] 10-19-2007 tetanus toxoid, redu khalida diphtheria toxoid, and acellular pertussis vaccine, adsorbed DO Chata Barton Work Phone: [facility] 10-19-2007 zoster vaccine recombinant DO Chata Barton Work Phone: [facility] Payers Date Payer Category Payer Medicare [id number] 2024 Self-pay 2022 Medicare UHC MEDICARE UHC AAR [employer] C[employer] HMO [id number] 2022-Present [phone] [address] [address] [place] [address] HMO [id number] 2022 Unknown [id number] Unknown COMMERCIAL OTHER [id number] Unknown [id number] Unknown [id number] Unknown [id number] Unknown [id number] Unknown [id number] Unknown [id number] Unknown [id number] Unknown [id number] Social History Date Type Detail Facility Start: 02-24-2022 End: 10-25-2024 Tobacco smoking status NHIS Ex-smoker [facility] History of tobacco use Current smoker [facility] History of tobacco use Cigarette Smoker C [facility] Start: 02-24-2022 Tobacco use and exposure Smokeless tobacco non-user [facility] Start: 02-24-2022 Alcohol intake Current drinke r of alcohol (finding) [facility] Start: 1945 Sex Assigned At Not on file C [facility] Start: 02-14-2022 End: 02-24-2022 Exposure to SARS-CoV-2 (event) Not sure [facility] Start: 08-16-2022 End: 08-03-2023 Tobacco smoking status NHIS Unknown if ever smoked [facility] Start: 1945 Sex Assigned At Female W [facility] Start: 10-01-2024 Sex Female (finding) [facility] Goals Date Patient Goal Desired Activity /State Functional Status Date Assessment Result Facility 10-28-2024 Functional status Ambulates;Yemi r;Bathroom Privilege [facility] Work Phone: 08-29-2022 Functional status Ambulates [facility] Work Phone: 08-23-2022 Functional status Chair [facility] Work Phone: Mental Status Date Assessment Result Facility 10-28-2024 Cognitive function Voice/Name [facility] Work Phone: 08-29-2022 Cognitive function Voice/Name [facility] Work Phone: 08-28-2022 Cognitive function Appropriate;Cooperativ e [facility] Work Phone: 08-23-2022 Cognitive function Voice/Name [facility] Work Phone: 08-16-2022 Cognitive function Voice/Name [facility] Work Phone: Clinical Notes 02-25-2022 to 10-28-2024 Note Date & Type Note Facility 10-28-2024 Discharge summary Note Date/Time October 28, 2024 10:52am [facility] [address] [place] [address] Discharge Summary 10/28/24 0914 MR#: [id number] Acct: [id number] Name: NURSE,RADHA OBRIEN Rep #:[id number] : [id number] 79 From: Laya Crisostomo DO PCP: Dr. Jamal Johns MD Status:ADM IN Location: [place] [address]- Providers Date of Admission: 10/25/24 Date of Discharge: 10/28/24 Primary Care Physician: Jamal Johns MD Consultations 10/25/24 23:47 Consult: Gastroenterology Routine Consulting Provider: [facility] Reason for Consult: UGIB with Melena. EMERGENT Consult: No MD Notified: Yes Date Notified: 10/24/24 Time Notified: 06:50 Method of Notification: Text Reason For Visit: UGIB, MELANOTIC STOOL, ABDOMINAL PAIN AND ADR TO Diagnosis Discharge Diagnosis (1) Thrombocytopenia: Status: Acute Code(s): D69.6 - Thrombocytopenia, unspecified (2) Melena: Status: Acute Code(s): K92.1 - Melena (3) Syncope and collapse: Status: Acute Code(s): R55 - Syncope and collapse (4) Orthostatic hypotension: Status: Acute Code(s): I95.1 - Orthostatic hypotension (5) Acute gastrointestinal bleeding: Status: Acute Code(s): K92.2 - Gastrointestinal hemorrhage, unspecified (6) Acute anemia: Status: Acute Code(s): D64.9 - Anemia, unspecified (7) Peptic ulcer disease: Status: Acute Code(s): K27.9 - Peptic ulcer, site unspecified, unspecified as acute or chronic, withouthemorrhage or perforation (8) Hypokalemia: Status: Acute Code(s): E87.6 - Hypokalemia Medications at Discharge Home Medications aspirin 81 mg chewable tablet 81 mg PO BREAKFAST [facility] 08/23/22 Held on 10/28/24. Instructions: Resume on 12/03/24. levothyroxine 50 mcg tablet 50 mcg PO DAILY@0600 thyroid 30 days #30 tabs 08/26/22 rosuvastatin 5 mg tablet 5 mg PO DAILY cholesterol #90 tabs 01/18/23 buspirone 15 mg tablet 15 mg PO TID anxiety 10/25/24 gabapentin 300 mg capsule 300 mg PO TID nerve pain 10/25/24 pantoprazole 40 mg tablet,delayed release 40 mg PO BID #60 tabs 10/28/24 sucralfate 1 gram tablet 1 g PO 1HR_ACHS #120 tabs 10/28/24 Hospital Course Operations None Procedures Blood transfusion and EGD Summary of Care Provided Minutes Spent on Discharge: 42 Hospital Course: Mrs. Abad is an 79-year-old white female who presented to the emergency department [facility] on 10/25/2024 with a chief complaint of syncope and melanotic stools with brief episode of abdominal pain. Patient reports that her symptoms started just prior to arrival when she had a syncopal episode while eating a AAA. Her symptoms came on suddenly and she was witnessedto have a complete syncopal episode. She also admitted to painful pressure sensation in her lower abdomen like she is going to have bowel movements with some nausea and some melanotic stool. Her noted her to be pale and diaphoretic. She does have a noted history of iron deficiency anemia but had noprevious GI bleed or anything similar to this. Vital signs on presentation showed a temperature of 96.9, heart rate was 72, respiratory rate was 18, blood pressure was 136/60 and pulse ox was 100% on room air. CBC showed normal white count. Her hemoglobin was 9.7 which was down from her baseline of 12-14. Platelet count was down to 144,000. Coags were normal. Her chemistry panel showed hyponatremia which appears to be a chronic issue for her with a sodium of126. Renal function is normal however she had a markedly elevated BUN/creatinine ratio so upper GI bleed was suspected. Iron studies were not at the time of presentation consistent with iron deficiency. Her liver function was normal. B12 and folate were measured and were normal. Guaiac for stool waspositive. Given this she was admitted to telemetry and workup for GI bleed withProtonix drip IV and a consultation to gastroenterology as well as an echocardiogram were obtained with her syncopal episode. Echocardiogram showed EF of 65% with no diastolic dysfunction and mild biatrial dilation but no valvular abnormalities. She was evaluated by gastroenterology and taken for EGDon 10/26/2024. EGD revealed a normal esophagus with 1 oozing cratered gastric ulcer and a visible vessel in the gastric antrum that was treated coagulation for hemostasis using heater probe with minimal blood loss. There is also 1 nonbleeding cratered gastric ulcer with adherent clot in the prepyloric region of the stomach. It was 10 mm in the largest dimension and to stop active bleeding 1 hemostatic clip clip was placed. There is no signs of bleeding at the end of the procedure. She was returned to the telemetry floor and placed lorraine clear liquid diet. We did maintain her on IV Protonix through the night. Shewas transition to oral Protonix on 10/27/2024 and Carafate was started. She clinically was stable. Her hemoglobin remained stable despite being able to advance her diet to regular food. Due to a syncopal episode she had in the hospital with ongoing lightheadedness she was transfused despite hemoglobin being 8.4 at lowest. 2 units of packed red blood cells were given prior to her EGD for symptomatic anemia. Hemoglobin at the time of discharge was up to 12.3. She did have thrombocytopenia which had stabilized and was starting to recover at the time of discharge. It appears that this was likely related to consumption from her bleeding. She should have a repeat CBC in 2 to 4 weeks. She is to continue Protonix and Carafate. Protonix will be 8 weeks twice daily and then transition to daily and Carafate will be treatment for 4 to 6 weeks. She is to follow-up with gastroenterology in 2 to 4 weeks. I have given her contact information and she is to call on Tuesday to set up that appointment. She is also not to take aspirin for the next 4 weeks. Prescriptions for her medications were sent to local pharmacy. She was able to discharge in stable condition to home on 10/28/2024. Discharge diagnoses: Acute upper GI bleed Peptic ulcer disease with 2 bleeding ulcers Acute anemia Thrombocytopenia secondary to consumption Adverse drug effect-aspirin Chronic hyponatremia Hypokalemia Severe malnutrition Syncope secondary to orthostatic hypotension History of ischemic stroke Hypothyroidism Squamous cell carcinoma of the left Anxiety History of alcohol use disorder History of tobacco abuse Physical Exam Const alert, oriented x3, no apparent distress and no limitations; Negative for average body habitus, healthy appearing or well nourished Constitutional Narrative: Frail, thin, elderly, white female, sitting up in bed watching television, eating breakfast, appears comfortable, nontoxic General Appearance: cooperative, comfortable, well kempt and well developed Exam Limitations: no limitations Nutritional Appearance: cachectic HEENT normocephalic, head/scalp atraumatic, hearing grossly normal bilaterally and moist oral mucous membranes HEENT Narrative: Mallampati is 1, no thrush, temporal wasting bilaterally Eyes EOMs intact bilaterally and conjunctivae normal Eyes Narrative: No scleral icterus Neck supple Neck Narrative: Trachea midline Resp normal respiratory effort, no retractions, no use of accessory muscles and clearto auscultation bilaterally Auscultation: Negative for rales, rhonchi or wheezes Cardio regular rate, regular rhythm, S1 normal heart sound, S2 normal heart sound, no murmurs, no rub, no gallops and no clicks GI normal to inspection, nondistended, normoactive bowel sounds, soft to palpation and non-tender GI Narrative: Scaphoid abdomen Extremity no clubbing, cyanosis or edema Extremity Narrative: Decreased lean muscle mass Skin skin turgor normal and no jaundice Skin Narrative: Thin skin with multiple skin changes consistent with chronic sun exposure Neuro oriented x3, moves all extremities and no focal motor deficits Speech: speech normal Psych affect normal Psych Narrative: Very pleasant, interacts appropriately Weight / BMI Weight Weight: 40.2 kg Body Mass Index (BMI) 15.9 ABG / Lab / Microbiology Data 10/28/24 03:37 10/28/24 03:37 Laboratory: Laboratory Results - last 24 hr 10/28/24 03:37: WBC 8.5, RBC 3.93 L, Hgb 12.3, Hct 35.2 L, MCV 89.6, MCH 31.3, MCHC 34.9, RDW Std Deviation 45.0 H, RDW Coeff of Bruna 13.7, Plt Count 105 L, MPV10.9, Immature Gran % (Auto) 0.200, Neut % (Auto) 76.8 H, Lymph % (Auto) 10.2 L,[place] % (Auto) 10.1 H, Eos % (Auto) 2.3, Baso % (Auto) 0.4, Absolute Neuts (auto)6.6, Absolute Lymphs (auto) 0.87, Nucleated RBC % 0, Sodium 130 L, Potassium 4.3, Chloride 96 L, Carbon Dioxide 24.3, Anion Gap 9, BUN 18, Creatinine 0.47 L,Estim Creat Clear Calc 33.09 L, Est GFR (MDRD) Non-Af 95, BUN/Creatinine Ratio 37.2 H, Glucose 102 H, Calcium 8.5, Magnesium 2.0 Microbiology: Microbiology 10/25/24 20:49 Stool Stool Occult Blood (FROILAN) - Final Occult Blood Positive D/C Instructions Discharge Diet: Low fat / Low cholesterol Discharge Activity: Return to Normal Activity DC O2, CPAP, BIPAP Needs Home O2 Discharge instructions: No DC home with Oxygen: No Meaningful Use Info Meaningful Use Meaningful Use Diagnoses (Choose all that apply): None applicable Ischemic Stroke Statin Dosing Therapy Reference: STATIN DOSE THERAPY REFERENCE: * Patients > 75 years receive moderate or high dose statin therapy. * Patients 75 years or YOUNGER should receive HIGH intensity statin dose unless contraindicated. You will be required to document reason for non-treatment if statin daily dose does not meet guidelines. HIGH DOSE STATIN THERAPY DAILY Atorvastatin > than or = to 40 mg Rosuvastatin > than or = to 20 mg Amlodipine + Atorvastatin > than or = to 2.5/40 mg Ezetimibe + Simvastatin 10/80 mg Simvastatin 80mg Discharge Plan Admission Admit Date/Time: 05/22/25 23:20 Primary Reason for Your Visit: Syncope/GI Bleeding Attending Provider: Laya Crisostomo Primary Care Provider: Jamal Johns Consulting Providers: Pastor Hernandez Instructions Additional Instructions / Restrictions: 1. Hold Aspirin for 1 month 2. Call Tuesday to get appt in Dr. Rivera's office for 2-4 weeks after discharge 3. Ok to start exercising but progress slowly Discharge Orders/Prescriptions Prescriptions: New pantoprazole 40 mg Tablet,Delayed Release (Dr/Ec) 40 mg PO BID Qty: 60 1RF sucralfate 1 gram Tablet 1 g PO 1HR_ACHS Qty: 120 0RF Continued rosuvastatin 5 mg tablet 5 mg PO DAILY Qty: 90 1RF levothyroxine 50 mcg Tablet 50 mcg PO DAILY@0600 30 Days Qty: 30 0RF gabapentin 300 mg capsule 300 mg PO TID buspirone 15 mg tablet 15 mg PO TID Held aspirin 81 mg tablet,chewable 81 mg PO BREAKFAST Hold Instructions: Resume on 12/03/24. Referrals / Follow Up: Jamal Johns MD [Primary Care Provider] - Within 1 Week Aurelio Rivera DO [Med Staff - Active Staff] - See Referral Note (call for appton Tuesday to be seen for hospital follow-up in 2-4 weeks) Disposition Disposition (needs filled in before D/C Order can be placed): Home, Self Care 10/28/24 1052 <Electronically signed by Laya Crisostomo DO> Cosigner Signature (if applicable): CC: Dr. Jamal Johns MD; Dr. Laya Crisostomo DO; Aurelio Rivera DO~ Signed [facility] Work Phone: [phone]) 194-260305-25-2025 Discharge summary [facility] Medical Records Department [address] [place] [address] Discharge Summary 10/28/24 0914 MR#: [id number] Acct: [id number] Name: NURSERADHA SOUZANE Rep #:[id number] : 1945 79 From: Laya Crisostomo DO PCP: Dr. Jamal Johns MD Status:ADM IN Location: [place] [address] Providers Date of Admission: 10/25/24 Date of Discharge: 10/28/24 Primary Care Physician: Jamal Johns MD Consultations 10/25/24 23:47 Consult: Gastroenterology Routine Consulting Provider: [facility] Reason for Consult: UGIB with Melena. EMERGENT Consult: No MD Notified: Yes Date Notified: 10/24/24 Time Notified: 06:50 Method of Notification: Text Reason For Visit: UGIB, MELANOTIC STOOL, ABDOMINAL PAIN AND ADR TO Diagnosis Discharge Diagnosis (1) Thrombocytopenia: Status: Acute Code(s): D69.6 - Thrombocytopenia, unspecified (2) Melena: Status: Acute Code(s): K92.1 - Melena (3) Syncope and collapse: Status: Acute Code(s): R55 - Syncope and collapse (4) Orthostatic hypotension: Status: Acute Code(s): I95.1 - Orthostatic hypotension (5) Acute gastrointestinal bleeding: Status: Acute Code(s): K92.2 - Gastrointestinal hemorrhage, unspecified (6) Acute anemia: Status: Acute Code(s): D64.9 - Anemia, unspecified (7) Peptic ulcer disease: Status: Acute Code(s): K27.9 - Peptic ulcer, site unspecified, unspecified as acute or chronic, withouthemorrhage or perforation (8) Hypokalemia: Status: Acute Code(s): E87.6 - Hypokalemia Medications at Discharge Home Medications aspirin 81 mg chewable tablet 81 mg PO BREAKFAST [facility] 08/23/22 Held on 10/28/24. Instructions: Resume on 12/03/24. levothyroxine 50 mcg tablet 50 mcg PO DAILY@0600 thyroid 30 days #30 tabs 08/26/22 rosuvastatin 5 mg tablet 5 mg PO DAILY cholesterol #90 tabs 01/18/23 buspirone 15 mg tablet 15 mg PO TID anxiety 10/25/24 gabapentin 300 mg capsule 300 mg PO TID nerve pain 10/25/24 pantoprazole 40 mg tablet,delayed release 40 mg PO BID #60 tabs 10/28/24 sucralfate 1 gram tablet 1 g PO 1HR_ACHS #120 tabs 10/28/24 Hospital Course Operations None Procedures Blood transfusion and EGD Summary of Care Provided Minutes Spent on Discharge: 42 Hospital Course: Mrs. Abad is an 79-year-old white female who presented to the emergency department [facility] on 10/25/2024 with a chief complaint of syncope and melanotic stools with brief episode of abdominal pain. Patient reports that her symptoms started just prior to arrival when she had a syncopal episode while eating a AAA. Her symptoms came on suddenly and she was witnessedto have a complete syncopal episode. She also admitted to painful pressure sensation in her lower abdomen like she is going to have bowel movements with some nausea and some melanotic stool. Her noted her leida pale and diaphoretic. She does have a noted history of iron deficiency anemia but had nopreviousGI bleed or anything similar to this. Vital signs on presentation showed a temperature of 96.9, heart rate was 72, respiratory rate was 18, blood pressure was 136/60 and pulse ox was 100% on room air. CBC showed normal white count. Her hemoglobin was 9.7 which was down from her baseline of 12-14. Platelet count was down to 144,000. Coags were normal. Her chemistry panel showed hyponatremia which appears to be a chronic issue for her with a sodium of126. Renal function is normal however she had a markedly elevated BUN/creatinine ratio so upper GI bleed was suspected. Iron studies were not at the time of presentation consistent with iron deficiency. Her liver function was normal. B12 and folate were measured and were normal. Guaiac for stool waspositive. Given this she was admitted to telemetry and workup for GI bleed withProtonix drip IV and a consultation to gastroenterology as well as an echocardiogram were obtained with her syncopal episode. Echocardiogram showed EF of 65% with no diastolic dysfunction and mild biatrial dilation but no valvular abnormalities. She was evaluated by gastroenterology and taken for EGDon 10/26/2024. EGD revealed a normal esophagus with 1 oozing cratered gastric ulcer and a visible vessel in the gastric antrum that was treated coagulation for hemostasis using heater probe with minimal blood loss. There is also 1 nonbleeding cratered gastric ulcer with adherent clot in the prepyloric region of the stomach. It was 10 mm in the largest dimension andto stop active bleeding 1 hemostatic clip clip was placed. There is no signs of bleeding at the endof the procedure. She was returned to the telemetry floor and placed lorraine clear liquid diet. We did maintain her on IV Protonix through the night. Shewas transition to oral Protonix on 10/27/2024 and Carafate was started. She clinically was stable. Her hemoglobin remained stable despite being able to advance her diet to regular food. Due to a syncopal episode she had in the hospital with ongoing lightheadedness she was transfused despite hemoglobin being 8.4 at lowest. 2 units of packed red bloodcells were given prior to her EGD for symptomatic anemia. Hemoglobin at the time of discharge was up to 12.3. She did have thrombocytopenia which had stabilized and was starting to recover at the time of discharge. It appears that this was likely related to consumption from her bleeding. She shouldhave a repeat CBC in 2 to 4 weeks. She is to continue Protonix and Carafate. Protonix will be 8 weeks twice daily and then transition to daily and Carafate will be treatment for 4 to 6 weeks. She is to follow-up with gastroenterology in 2 to 4 weeks. I have given her contact information and she is to call on Tuesday to set up that appointment. She is also not to take aspirin for the next 4 weeks.Prescriptions for her medications were sent to local pharmacy. She was able to discharge in stable condition to home on 10/28/2024. Discharge diagnoses: Acute upper GI bleed Peptic ulcer disease with 2 bleeding ulcers Acute anemia Thrombocytopenia secondary to consumption Adverse drug effect-aspirin Chronic hyponatremia Hypokalemia Severe malnutrition Syncope secondary to orthostatic hypotension History of ischemic stroke Hypothyroidism Squamous cell carcinoma of the left Anxiety History of alcohol use disorder History of tobacco abuse Physical Exam Const alert, oriented x3, no apparent distress and no limitations; Negative for average body habitus, healthy appearing or well nourished Constitutional Narrative: Frail, thin, elderly, white female, sitting up in bed watching television, eating breakfast, appears comfortable, nontoxic General Appearance: cooperative, comfortable, well kempt and well developed Exam Limitations: no limitations Nutritional Appearance: cachectic HEENT normocephalic, head/scalp atraumatic, hearing grossly normal bilaterally and moist oral mucous membranes HEENT Narrative: Mallampati is 1, no thrush, temporal wasting bilaterally Eyes EOMs intact bilaterally and conjunctivae normal Eyes Narrative: No scleral icterus Neck supple Neck Narrative: Trachea midline Resp normal respiratory effort, no retractions, no use of accessory muscles and clearto auscultation bilaterally Auscultation: Negative for rales, rhonchi or wheezes Cardio regular rate, regular rhythm, S1 normal heart sound, S2 normal heart sound, no murmurs, no rub, no gallops and no clicks GI normal to inspection, nondistended, normoactive bowel sounds, soft to palpation and non-tender GI Narrative: Scaphoid abdomen Extremity no clubbing, cyanosis or edema Extremity Narrative: Decreased lean muscle mass Skin skin turgor normal and no jaundice Skin Narrative: Thin skin with multiple skin changes consistent with chronic sun exposure Neuro oriented x3, moves all extremities and no focal motor deficits Speech: speech normal Psych affect normal Psych Narrative: Very pleasant, interacts appropriately Weight / BMI Weight Weight: 40.2 kg Body Mass Index (BMI) 15.9 ABG / Lab / Microbiology Data 10/28/24 03:37 10/28/24 03:37 Laboratory: Laboratory Results - last 24 hr 10/28/24 03:37: WBC 8.5, RBC 3.93 L, Hgb 12.3, Hct 35.2 L, MCV 89.6, MCH 31.3, MCHC 34.9, RDW Std Deviation 45.0 H, RDW Coeff of Bruna 13.7, Plt Count 105 L, MPV10.9, Immature Gran % (Auto) 0.200, Neut% (Auto) 76.8 H, Lymph % (Auto) 10.2 L,[place] % (Auto) 10.1 H, Eos % (Auto) 2.3, Baso % (Auto) 0.4, Absolute Neuts (auto)6.6, Absolute Lymphs (auto) 0.87, Nucleated RBC % 0, Sodium 130 L, Potassium 4.3, Chloride 96 L, Carbon Dioxide 24.3, Anion Gap 9, BUN 18, Creatinine 0.47 L,Estim Creat Clear Calc 33.09 L, Est GFR (MDRD) Non-Af 95, BUN/Creatinine Ratio 37.2 H, Glucose 102 H, Calcium 8.5, Magnesium 2.0 Microbiology: Microbiology 10/25/24 20:49 Stool Stool Occult Blood (FROILAN) - Final Occult Blood Positive D/C Instructions Discharge Diet: Low fat / Low cholesterol Discharge Activity: Return to Normal Activity DC O2, CPAP, BIPAP Needs Home O2 Discharge instructions: No DC home with Oxygen: No Meaningful Use Info Meaningful Use Meaningful Use Diagnoses (Choose all that apply): None applicable Ischemic Stroke Statin Dosing Therapy Reference: STATIN DOSE THERAPY REFERENCE: * Patients > 75 years receive moderate or high dose statin therapy. * Patients 75 years or YOUNGER should receive HIGH intensity statin dose unless contraindicated. You will be required to document reason for non-treatment if statin daily dose does not meet guidelines. HIGH DOSE STATIN THERAPY DAILY Atorvastatin > than or = to 40 mg Rosuvastatin > than or = to 20 mg Amlodipine + Atorvastatin > than or = to 2.5/40 mg Ezetimibe + Simvastatin 10/80 mg Simvastatin 80mg Discharge Plan Admission Admit Date/Time: 10/25/24 23:20 Primary Reason for Your Visit: Syncope/GI Bleeding Attending Provider: Laya Crisostomo Primary Care Provider: Jamal Johns Consulting Providers: Pastor Hernandez Instructions Additional Instructions / Restrictions: 1. Hold Aspirin for 1 month 2. Call Tuesday to get appt in Dr. Rivera's office for 2-4 weeks after discharge 3. Ok to start exercising but progress slowly Discharge Orders/Prescriptions Prescriptions: New pantoprazole 40 mg Tablet,Delayed Release (Dr/Ec) 40 mg PO BID Qty: 60 1RF sucralfate 1 gram Tablet 1 g PO 1HR_ACHS Qty: 120 0RF Continued rosuvastatin 5 mg tablet 5 mg PO DAILY Qty: 90 1RF levothyroxine 50 mcg Tablet 50 mcg PO DAILY@0600 30 Days Qty: 30 0RF gabapentin 300 mg capsule 300 mg PO TID buspirone 15 mg tablet 15 mg PO TID Held aspirin 81 mg tablet,chewable 81 mg PO BREAKFAST Hold Instructions: Resume on 12/03/24. Referrals / Follow Up: Jamal Johns MD [Primary Care Provider] - Within 1 Week Aurelio Rivera DO [Med Staff - Active Staff] - See Referral Note (call for appton Tuesday to be seen for hospital follow-up in 2-4 weeks) Disposition Disposition (needs filled in before D/C Order can be placed): Home, Self Care 10/28/24 1052 Cosign Signature (if applicable): CC: Dr. Jamal Johns MD; Dr. Laya Crisostomo DO; Aurelio Rivera DO~ Signed [facility]05-25-2025 [facility] Medical Records Department [address] [place] [address] Discharge Summary 10/28/24 0914 MR#: [id number] Acct: [id number] Name: NURSE,RADHA OBRIEN Rep #: [id number] : 1945 79 From: Laya Kranthi SANTANA PCP: Dr. Jamal Johns MD Status:ADM IN Location: [place] [address] Providers Date of Admission: 10/25/24 Date of Discharge: 10/28/24 Primary Care Physician: Jamal Johns MD Consultations 10/25/24 23:47 Consult: Gastroenterology Routine Consulting Provider: [facility] Reason for Consult: UGIB with Melena. EMERGENT Consult: No MD Notified: Yes Date Notified: 10/24/24 Time Notified: 06:50 Method of Notification: Text Reason For Visit: UGIB, MELANOTIC STOOL, ABDOMINAL PAIN AND ADR TO Diagnosis Discharge Diagnosis (1) Thrombocytopenia: Status: Acute Code(s): D69.6 - Thrombocytopenia, unspecified (2) Melena: Status: Acute Code(s): K92.1 - Melena (3) Syncope and collapse: Status: Acute Code(s): R55 - Syncope and collapse (4) Orthostatic hypotension: Status: Acute Code(s): I95.1 - Orthostatic hypotension (5) Acute gastrointestinal bleeding: Status: Acute Code(s): K92.2 - Gastrointestinal hemorrhage, unspecified (6) Acute anemia: Status: Acute Code(s): D64.9 - Anemia, unspecified (7) Peptic ulcer disease: Status: Acute Code(s): K27.9 - Peptic ulcer, site unspecified, unspecified as acute or chronic, without hemorrhage or perforation (8) Hypokalemia: Status: Acute Code(s): E87.6 - Hypokalemia Medications at Discharge Home Medications aspirin 81 mg chewable tablet 81 mg PO BREAKFAST [facility] 08/23/22 Held on 10/28/24. Instructions: Resume on 12/03/24. levothyroxine 50 mcg tablet 50 mcg PO DAILY@0600 thyroid 30 days #30 tabs 08/26/22 rosuvastatin 5 mg tablet 5 mg PO DAILY cholesterol #90 tabs 01/18/23 buspirone 15 mg tablet 15 mg PO TID anxiety 10/25/24 gabapentin 300 mg capsule 300 mg PO TID nerve pain 10/25/24 pantoprazole 40 mg tablet,delayed release 40 mg PO BID #60 tabs 10/28/24 sucralfate 1 gram tablet 1 g PO 1HR_ACHS #120 tabs 10/28/24 Hospital Course Operations None Procedures Blood transfusion and EGD Summary of Care Provided Minutes Spent on Discharge: 42 Hospital Course: Mrs. Abad is an 79-year-old white female who presented to the emergency department [facility] on 10/25/2024 with a chief complaint of syncope and melanotic stools with brief episode of abdominal pain. Patient reports that her symptoms started just prior to arrival when she had a syncopal episode while eating a AAA. Her symptoms came on suddenly and she was witnessed to have a complete syncopal episode. She also admitted to painful pressure sensation in her lower abdomen like she is going to have bowel movements with some nausea and some melanotic stool. Her noted her to be pale and diaphoretic. She does have a noted history of iron deficiency anemia but had no previous GI bleed or anything similar to this. Vital signs on presentation showed a temperature of 96.9, heart rate was 72, respiratory rate was 18, blood pressure was 136/60 and pulse ox was 100% on room air. CBC showed normal white count. Her hemoglobin was 9.7 which was down from her baseline of 12-14. Platelet count was down to 144,000. Coags were normal. Her chemistry panel showed hyponatremia which appears to be a chronic issue for her with a sodium of 126. Renal function is normal however she had a markedly elevated BUN/creatinine ratio so upper GI bleed was suspected. Iron studies were not at the time of presentation consistent with iron deficiency. Her liver function was normal. B12 and folate were measured and were normal. Guaiac for stool was positive. Given this she was admitted to telemetry and workup for GI bleed with Protonix drip IV and a consultation to gastroenterology as well as an echocardiogram were obtained with her syncopal episode. Echocardiogram showed EF of 65% with no diastolic dysfunction and mild biatrial dilation but no valvular abnormalities. She was evaluated by gastroenterology and taken for EGD on 10/26/2024. EGD revealed a normal esophagus with 1 oozing cratered gastric ulcer and a visible vessel in the gastric antrum that was treated coagulation for hemostasis using heater probe with minimal blood loss. There is also 1 nonbleeding cratered gastric ulcer with adherent clot in the prepyloric region of the stomach. It was 10 mm in the largest dimension and to stop active bleeding 1 hemostatic clip clip was placed. There is no signs of bleeding at the end of the procedure. She was returned to the telemetry floor and placed on a clear liquid diet. We did maintain her on IV Protonix through the night. She was transition to oral Protonix on 10/27/2024 and Carafate was started. She clinically was stable. Her hemoglobin remai (more content not included)...[facility]05-25-2025 Discharge summary Author Terrance Oswald [facility] Note Date/Time October 27, 2024 10:10 pm [facility] Medical Records Department [address] [place] [address] Emergency Department Summary 10/25/24 MR#: [id number] Acct: [id number] Name: NURSE,RADHA OBRIEN Rep #:[id number] : 1945 79 From: Terrance Oswald MD PCP: Dr. Jamal Johns MD Status:ADM IN Location: [place] [id number] <Dr. Terrance Oswald MD - Last Filed: 10/25/24 22:36> History of Present Illness Chief Complaint: Syncope Detail of Chief Complaint: Syncopal episode while eating at the [employer] Informant: patient, spouse/S.O. and EMS Onset/Context/Timing Onset: Today and Hours Context: Sudden Onset Timing: Intermittent Quality: Syncopal episode Location: At a local restaurant Current Severity: Gone Maximum Severity: Passed out Worsened by: Patient states she had to have a bowel movement and felt some mild discomfo Relieved by: Time Associated Symptoms Associated Symptoms: Per patient nausea and lightheadedness. Per diaphoresis and pallor Narrative Narrative: Patient is an 79-year-old woman. She has history of hypercholesterolemia, squamous cell carcinoma, depression who arrived by ambulance because of syncopalepisode. Today she had an appointment with dermatology and had mole surgery left calf size of 2 sugar cubes per patient. Dressing was not removed. 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 She went home and napped. She then went with her to [employer]. Apparently she felt some indigestion and abdominaldiscomfort that was followed by nausea and urge to defecate. Patient per passed out. She was pale and diaphoretic. She had a bowel movement here. She states her abdominal discomfort is resolved. She states she feels back to normal and would like to go home. Patient has no history of coronary artery disease. She appears pale. Accordingto daughter she looks paler than normal. She has no history of iron deficiency anemia. There is no history of peptic ulcer disease. She does have history of alcohol use. Prior similar symptoms: No Recent Illness/Hospitalization: Yes FOR[facility]LY [facility], 1928–1983 <Dr. Terrance Oswald MD - Last Filed: 10/25/24 22:36> [facility], [facility]1983 Medical History Fatigue Acute ischemic stroke Epilepsy Alcohol abuse Anxiety Home Medications ?Medication ?Instructions ?Recorded ?Last Taken ?Type aspirin 81 mg chewable tablet 81 mg PO BREAKFAST [facility] 08/23/22 Unknown History levothyroxine 50 mcg tablet 50 mcg PO DAILY@0600 30 da ys #30 08/26/22 Unknown Rx tabs rosuvastatin 5 mg tablet 5 mg PO DAILY #90 tabs 01/18 Unknown Rx buspirone 15 mg tablet 15 mg PO TID 10/25/24 Unknow n History gabapentin 300 mg capsule 300 mg PO TID 10/25/24 Unkno wn History Allergy/AdvReac Type Severity Reaction Status Date / Time Milk Containing Products Allergy Diarrhea Verified 10/25/24 20:17 (Dairy) (Milk Containing Products) Surgical History Hx of hysterectomy Social History household members: spouse Smoking Status: Former smoker alcohol intake: former year quit: 2022 details: Recently quit drinking alcohol 2-3 weeks ago. substance use type: does not use what type of physical activity do you participate in: walking frequency: daily colleen/samaritan: Ep[employer] seatbelt use: always ROS <Dr. Terrance Oswald MD - Last Filed: 10/25/24 22:36> ROS ED Constitutional Constitutional ED: Denies chills, fever(s), subjective, sweats or weight loss Eyes Eyes: Reports other Details: Patient states her vision was tunneled and became black. ENT ENT ED: Denies ear pain, rhinorrhea or sore throat Cardiovascular Cardiovascular: Denies chest pain, orthopnea, palpitations, paroxysmal nocturnaldyspnea or racing heartbeat Respiratory/Chest Respiratory/Chest: Denies cough, dyspnea, dyspnea on exertion, orthopnea or paroxysmal nocturnal dyspnea Gastrointestinal Gastrointestinal: Reports abdominal pain and nausea; Denies constipation, diarrhea, melena or vomiting Genitourinary Genitourinary ED: Denies dysuria, hematuria or urinary frequency Musculoskeletal Musculoskeletal: Denies arthralgias or myalgias Integumentary Denies rash Neurologic Neurologic: Denies headache(s) or paresthesias Hematologic/Lymphatic Hematologic/Lymphatic: Reports systems reviewed and no addt'l complaints, exceptas documented EXAM <Dr. Terrance Oswald MD - Last Filed: 10/25/24 22:36> Physical Exam Const Vital Signs: 10/25/24 20:13 10/25/24 20:16 10/25/24 20:24 Temperature 96.9 F L Temperature Source Temporal Pulse Rate 72 66 Pulse Rate [Lying] Pulse Rate [Sitting (for 1 minute prior to obtaining)] Pulse Rate [Standing (for 1 minute prior to obtaining)] Respiratory Rate 18 16 Respiratory Pattern Normal Blood Pressure 136/60 H Blood Pressure [Lying] Blood Pressure [Sitting (for 1 minute prior to obtaining)] Blood Pressure [Standing (for 1 minute prior to obtaining)] Blood Pressure Mean 85 Blood Pressure Mean [Lying] Blood Pressure Mean [Sitting (for 1 minute prior to obtaining)] Blood Pressure Mean [Standing (for 1 minute prior to obtaining)] Pulse Ox 100 100 Oxygen Delivery Method Room Air 10/25/24 20:30 10/25/24 20:36 10/25/24 20:36 Temperature Temperature Source Pulse Rate 68 65 Pulse Rate [Lying] 65 Pulse Rate [Sitting (for 1 minute prior to obtaining)] 66 Pulse Rate [Standing (for 1 minute prior to obtaining)] 74 Respiratory Rate 14 14 Respiratory Pattern Blood Pressure 135/55 H 119/56 L Blood Pressure [Lying] 120/54 L Blood Pressure [Sitting (for 1 minute prior to obtaining)] 119/56 L Blood Pressure [Standing (for 1 minute prior to obtaining)] 130/54 H Blood Pressure Mean 77 74 Blood Pressure Mean [Lying] 76 Blood Pressure Mean [Sitting (for 1 minute prior to obtaining)] 77 Blood Pressure Mean [Standing (for 1 minute prior to obtaining)] 79 Pulse Ox 100 100 Oxygen Delivery Method 10/25/24 20:37 10/25/24 20:38 10/25/24 20:45 Temperature Temperature Source Pulse Rate 66 73 69 Pulse Rate [Lying] Pulse Rate [Sitting (for 1 minute prior to obtaining)] Pulse Rate [Standing (for 1 minute prior to obtaining)] Respiratory Rate 15 20 H 14 Respiratory Pattern Blood Pressure 120/54 L 130/54 H 134/61 H Blood Pressure [Lying] Blood Pressure [Sitting (for 1 minute prior to obtaining)] Blood Pressure [Standing (for 1 minute prior to obtaining)] Blood Pressure Mean 73 76 78 Blood Pressure Mean [Lying] Blood Pressure Mean [Sitting (for 1 minute prior to obtaining)] Blood Pressure Mean [Standing (for 1 minute prior to obtaining)] Pulse Ox 100 98 100 Oxygen Delivery Method 10/25/24 21:00 10/25/24 21:15 10/25/24 21:30 Temperature Temperature Source Pulse Rate 68 73 73 Pulse Rate [Lying] Pulse Rate [Sitting (for 1 minute prior to obtaining)] Pulse Rate [Standing (for 1 minute prior to obtaining)] Respiratory Rate 14 12 12 Respiratory Pattern Blood Pressure 127/53 H 128/60 H 140/59 H Blood Pressure [Lying] Blood Pressure [Sitting (for 1 minute prior to obtaining)] Blood Pressure [Standing (for 1 minute prior to obtaining)] Blood Pressure Mean 74 79 82 Blood Pressure Mean [Lying] Blood Pressure Mean [Sitting (for 1 minute prior to obtaining)] Blood Pressure Mean [Standing (for 1 minute prior to obtaining)] Pulse Ox 100 100 Oxygen Delivery Method 10/25/24 21:39 10/25/24 21:45 10/25/24 22:00 Temperature 97.9 F Temperature Source Pulse Rate 75 80 76 Pulse Rate [Lying] Pulse Rate [Sitting (for 1 minute prior to obtaining)] Pulse Rate [Standing (for 1 minute prior to obtaining)] Respiratory Rate 16 16 11 L Respiratory Pattern Blood Pressure 140/59 H 140/66 H 138/59 H Blood Pressure [Lying] Blood Pressure [Sitting (for 1 minute prior to obtaining)] Blood Pressure [Standing (for 1 minute prior to obtaining)] Blood Pressure Mean 86 88 81 Blood Pressure Mean [Lying] Blood Pressure Mean [Sitting (for 1 minute prior to obtaining)] Blood Pressure Mean [Standing (for 1 minute prior to obtaining)] Pulse Ox 100 100 Oxygen Delivery Method Positive well developed; Negative for well nourished Constitutional Narrative: Patient is very thin. She states she has always been thin. She weighs 46 kg. General Appearance ED: well developed, NAD and pallor; Negative for cyanotic or diaphoretic HEENT Reports moist mucous membranes HEENT Narrative: Head is atraumatic normocephalic. Ears normal. Nares patent. Posterior pharynx is normal. Uvula is midline. No deviation with tongue with protrusion. Eyes PERRL and EOMs intact bilaterally General Eye ED: Yes pale conjunctiva; Negative for scleral icterus Neck no lymphadenopathy, supple and no JVD Chest Wall inspection of chest normal and palpation of chest normal Resp normal respiratory effort and clear to auscultation bilaterally Cardio regular rate, regular rhythm, S1 normal heart sound, S2 normal heart sound and no murmurs GI non-tender and no masses; Negative for non-distended or hepatosplenomegaly GI Narrative: Abdomen is tympanitic. Bowel sounds are increased. 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 There is no blood noted on the dressing. Neuro oriented x3 and CN's II-XII intact bilaterally Sensorium / Orientation: alert Psych mental status grossly normal Skin Skin Narrative: Wound due to Mohs surgery General Skin Exam: pallor; Negative for jaundice <Dr. Mikel Alanis, DO - Last Filed: 10/25/24 22:48> Physical Exam Const Vital Signs: 10/25/24 20:13 10/25/24 20:16 10/25/24 20:24 Temperature 96.9 F L Temperature Source Temporal Pulse Rate 72 66 Pulse Rate [Lying] Pulse Rate [Sitting (for 1 minute prior to obtaining)] Pulse Rate [Standing (for 1 minute prior to obtaining)] Respiratory Rate 18 16 Respiratory Pattern Normal Blood Pressure 136/60 H Blood Pressure [Lying] Blood Pressure [Sitting (for 1 minute prior to obtaining)] Blood Pressure [Standing (for 1 minute prior to obtaining)] Blood Pressure Mean 85 Blood Pressure Mean [Lying] Blood Pressure Mean [Sitting (for 1 minute prior to obtaining)] Blood Pressure Mean [Standing (for 1 minute prior to obtaining)] Pulse Ox 100 100 Oxygen Delivery Method Room Air 10/25/24 20:30 10/25/24 20:36 10/25/24 20:36 Temperature Temperature Source Pulse Rate 68 65 Pulse Rate [Lying] 65 Pulse Rate [Sitting (for 1 minute prior to obtaining)] 66 Pulse Rate [Standing (for 1 minute prior to obtaining)] 74 Respiratory Rate 14 14 Respiratory Pattern Blood Pressure 135/55 H 119/56 L Blood Pressure [Lying] 120/54 L Blood Pressure [Sitting (for 1 minute prior to obtaining)] 119/56 L Blood Pressure [Standing (for 1 minute prior to obtaining)] 130/54 H Blood Pressure Mean 77 74 Blood Pressure Mean [Lying] 76 Blood Pressure Mean [Sitting (for 1 minute prior to obtaining)] 77 Blood Pressure Mean [Standing (for 1 minute prior to obtaining)] 79 Pulse Ox 100 100 Oxygen Delivery Method 10/25/24 20:37 10/25/24 20:38 10/25/24 20:45 Temperature Temperature Source Pulse Rate 66 73 69 Pulse Rate [Lying] Pulse Rate [Sitting (for 1 minute prior to obtaining)] Pulse Rate [Standing (for 1 minute prior to obtaining)] Respiratory Rate 15 20 H 14 Respiratory Pattern Blood Pressure 120/54 L 130/54 H 134/61 H Blood Pressure [Lying] Blood Pressure [Sitting (for 1 minute prior to obtaining)] Blood Pressure [Standing (for 1 minute prior to obtaining)] Blood Pressure Mean 73 76 78 Blood Pressure Mean [Lying] Blood Pressure Mean [Sitting (for 1 minute prior to obtaining)] Blood Pressure Mean [Standing (for 1 minute prior to obtaining)] Pulse Ox 100 98 100 Oxygen Delivery Method 10/25/24 21:00 10/25/24 21:15 10/25/24 21:30 Temperature Temperature Source Pulse Rate 68 73 73 Pulse Rate [Lying] Pulse Rate [Sitting (for 1 minute prior to obtaining)] Pulse Rate [Standing (for 1 minute prior to obtaining)] Respiratory Rate 14 12 12 Respiratory Pattern Blood Pressure 127/53 H 128/60 H 140/59 H Blood Pressure [Lying] Blood Pressure [Sitting (for 1 minute prior to obtaining)] Blood Pressure [Standing (for 1 minute prior to obtaining)] Blood Pressure Mean 74 79 82 Blood Pressure Mean [Lying] Blood Pressure Mean [Sitting (for 1 minute prior to obtaining)] Blood Pressure Mean [Standing (for 1 minute prior to obtaining)] Pulse Ox 100 100 Oxygen Delivery Method 10/25/24 21:39 10/25/24 21:45 10/25/24 22:00 Temperature 97.9 F Temperature Source Pulse Rate 75 80 76 Pulse Rate [Lying] Pulse Rate [Sitting (for 1 minute prior to obtaining)] Pulse Rate [Standing (for 1 minute prior to obtaining)] Respiratory Rate 16 16 11 L Respiratory Pattern Blood Pressure 140/59 H 140/66 H 138/59 H Blood Pressure [Lying] Blood Pressure [Sitting (for 1 minute prior to obtaining)] Blood Pressure [Standing (for 1 minute prior to obtaining)] Blood Pressure Mean 86 88 81 Blood Pressure Mean [Lying] Blood Pressure Mean [Sitting (for 1 minute prior to obtaining)] Blood Pressure Mean [Standing (for 1 minute prior to obtaining)] Pulse Ox 100 100 Oxygen Delivery Method [facility] <Dr. Terrance Oswald MD - Last Filed: 10/25/24 22:36> [facility] Narrative Medical decision making narrative: Suspect vasovagal syncopal episode. Patient appears very pale and has pale conjunctiva. Also concern for GI bleed. Will have nurse perform orthostatic vital signs. History is not consistent with cardiac ischemia. Will obtain EKG to see if there is any dysrhythmia or ischemic changes. CBC was obtained assessH&H and platelet count. Basic metabolic panel was obtained to assess BUN to creatinine ratio as well as renal function. I was informed at 2041 the patient orthostatics were positive. When she stood she passed out prior to nurse being able to obtain a blood pressure or heart rate. This raises concern for GI bleed especially since patient appears very pale. History & Record Review Additional record(s) reviewed:: Prior inpatient record (Patient hospitalized August 2022. Reviewed Dr. Kenna Chirinos's discharge note. She was admitted for acute encephalopathy and was diagnosed with a small left temporal stroke. 2D echo revealed an EF of 65%. EEG revealed focal tampering in her right temporal lobe with no evidence of seizure activity..), Prior outpatient record (Urgent care notes from July 2023 for skin tear without complication right hand. Seen by Dr. Fransisco Ford for fatigue and epilepsy in 2022. Se[address] Hooks in August 2022 due to alcohol related issues.), Prior ED visit and Prior labs Lab Data Attestation: I reviewed the patient's lab results. Lab results narrative: CBC is marked for an H&H of 9.7 and 20.4. There is an approximately 4 g drop from 1 month ago. BUN to creatinine ratio is approximately 70-1 which is consistent with a GI bleed. Since patient cannot stand without passing out willplace a Flores because she says she urinates frequently and this would be for herbenefit. Glucose is elevated 141 with a normal CO2 anion gap. Since patient has history of alcohol abuse PT/INR was added as well as PTT to determine if she has a coagulopathy and to assess her liver function. Patient does take a baby aspirin a day. She is on a baby aspirin a day because she had a prior stroke according to the and patient. Labs: Laboratory Results - last 24 hr 10/25/24 20:15 WBC 5.6 RBC 2.99 L Hgb 9.7 L Hct 28.4 L MCV 95.0 MCH 32.4 H MCHC 34.2 RDW Std Deviation 42.0 RDW Coeff of Bruna 12.1 Plt Count 144 L MPV 10.4 PT 14.4 INR 1.1 APTT 25.3 Sodium 126 L Potassium 4.1 Chloride 89 L Carbon Dioxide 26.5 Anion Gap 11 BUN 34 H Creatinine 0.48 L Estim Creat Clear Calc 40.22 L Est GFR (MDRD) Non-Af 95 BUN/Creatinine Ratio 71.4 H Glucose 141 H Calcium 8.3 Patient was typed and screened. Crossmatch was not ordered at this time. SinceI have not heard back from the hospitalist the night physician was made aware. Patient requires full admission for upper GI bleed with orthostatic hypotension EKG Initial EKG: Attestation: I personally reviewed and interpreted this EKG as follows: Interpretation: Sinus Rhythm (Rate is 65. RI interval 200 ms. Cures duration 90 ms. QT duration 4 to 10 ms. [place] is to the left. There is evidence of a left anterior fascicular block.) <Dr. Mikel Alanis, DO - Last Filed: 10/25/24 22:48> [facility] Narrative Medical decision making narrative: Suspect vasovagal syncopal episode. Patient appears very pale and has pale conjunctiva. Also concern for GI bleed. Will have nurse perform orthostatic vital signs. History is not consistent with cardiac ischemia. Will obtain EKG to see if there is any dysrhythmia or ischemic changes. CBC was obtained assessH&H and platelet count. Basic metabolic panel was obtained to assess BUN to creatinine ratio as well as renal function. I was informed at 2041 the patient orthostatics were positive. When she stood she passed out prior to nurse being able to obtain a blood pressure or heart rate. This raises concern for GI bleed especially since patient appears very pale. 10:[address] Farnsworth called back discussion with him he will except the patient for admission for syncope in the setting of upper GI bleed. Patient notified is agreeable this plan all course concerns answered. Lab Data Labs: Laboratory Results - last 24 hr 10/25/24 20:15 WBC 5.6 RBC 2.99 L Hgb 9.7 L Hct 28.4 L MCV 95.0 MCH 32.4 H MCHC 34.2 RDW Std Deviation 42.0 RDW Coeff of Bruna 12.1 Plt Count 144 L MPV 10.4 PT 14.4 INR 1.1 APTT 25.3 Sodium 126 L Potassium 4.1 Chloride 89 L Carbon Dioxide 26.5 Anion Gap 11 BUN 34 H Creatinine 0.48 L Estim Creat Clear Calc 40.22 L Est GFR (MDRD) Non-Af 95 BUN/Creatinine Ratio 71.4 H Glucose 141 H Calcium 8.3 Discharge Plan Dx/Rx/DC Orders Clinical Impression: Acute gastrointestinal bleeding, Subclinical hypothyroidism, Alcohol abuse, Orthostatic hypotension, Syncope and collapse Disposition Disposition: Acute Care Hospital [facility] What to do if you have Problems For any increased pain, shortness of breath, bleeding, nausea or vomiting, chestpain, or any unexpected problems, contact your Primary Care Provider. Call [facility] ([phone]) or report to the closest Emergency Room. Call 911 if necessary. 10/27/242209 <Electronically signed by Terrance Oswald MD> Cosigner Signature (if applicable): 10/25/242247 <Electronically signed by Mikel Alanis DO> CC: Dr. Jamal Johns MD ~ Signed [facility] Work Phone: [phone] Discharge summary [facility] [address] [place] [address] Emergency Department Summary 10/25/24 MR#: [id number] Acct: [id number] Name: NURSE,RADHA OBRIEN Rep #[id number] 79 From: Terrance Oswald MD PCP: Dr. Jamal Johns MD Status:ADM IN Location: [place] [address]- 1 HPI History of Present Illness Chief Complaint: Syncope Detail of Chief Complaint: Syncopal episode while eating at the [employer] Informant: patient, spouse/S.O. and EMS Onset/Context/Timing Onset: Today and Hours Context: Sudden Onset Timing: Intermittent Quality: Syncopal episode Location: At a local restaurant Current Severity: Gone Maximum Severity: Passed out Worsened by: Patient states she had to have a bowel movement and felt some mild discomfo Relieved by: Time Associated Symptoms Associated Symptoms: Per patient nausea and lightheadedness. Per diaphoresis and pallor Narrative Narrative: Patient is an 79-year-old woman. She has history of hypercholesterolemia, squamous cell carcinoma, depression who arrived by ambulance because of syncopalepisode. Today she had an appointment with dermatology and had mole surgery left calf size of 2 sugar cubes per patient. Dressing was not removed. 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 She went home and napped. She then went with her Sid. Apparently she felt some indigestion and abdominaldiscomfort that was followed by nausea and urge to defecate. Patient per passed out. She was pale and diaphoretic. She had a bowel movement here. She states her abdominal discomfort is resolved. She states she feels back to normal and would like to go home. Patient has no history of coronary artery disease. She appears pale. Accordingto daughter she lookspaler than normal. She has no history of iron deficiency anemia. There is no history of peptic ulcer disease. She does have history of alcohol use. Prior similar symptoms: No Recent Illness/Hospitalization: Yes [facility] Medical History Fatigue Acute ischemic stroke Epilepsy Alcohol abuse Anxiety Home Medications ?Medication ?Instructions ?Recorded ?Last Taken ?Type aspirin 81 mg chewable tablet 81 mg PO BREAKFAST heart health 08/23/22 Unknown History levothyroxine 50 mcg tablet 50 mcg PO DAILY@0600 30 da ys #30 08/26/22 Unknown Rx tabs rosuvastatin 5 mg tablet 5 mg PO DAILY #90 tabs 01/18 Unknown Rx buspirone 15 mg tablet 15 mg PO TID 10/25/24 Unknow n History gabapentin 300 mg capsule 300 mg PO TID 10/25/24 Unkno wn History Allergy/AdvReac Type Severity Reaction Status Date / Time Milk Containing Products Allergy Diarrhea Verified 10/25/24 20:17 (Dairy) (Milk Containing Products) Surgical History Hx of hysterectomy Social History household members: spouse Smoking Status: Former smoker alcohol intake: former year quit: 2022 details: Recently quit drinking alcohol 2-3 weeks ago. substance use type: does not use what type of physical activity do you participate in: walking frequency: daily colleen/samaritan: Episcopal seatbelt use: always ROS ROS ED Constitutional Constitutional ED: Denies chills, fever(s), subjective, sweats or weight loss Eyes Eyes: Reports other Details: Patient states her vision was tunneled and became black. ENT ENT ED: Denies ear pain, rhinorrhea or sore throat Cardiovascular Cardiovascular: Denies chest pain, orthopnea, palpitations, paroxysmal nocturnaldyspnea or racing heartbeat Respiratory/Chest Respiratory/Chest: Denies cough, dyspnea, dyspnea on exertion, orthopnea or paroxysmal nocturnal dyspnea Gastrointestinal Gastrointestinal: Reports abdominal pain and nausea; Denies constipation, diarrhea, melena or vomiting Genitourinary Genitourinary ED: Denies dysuria, hematuria or urinary frequency Musculoskeletal Musculoskeletal: Denies arthralgias or myalgias Integumentary Denies rash Neurologic Neurologic: Denies headache(s) or paresthesias Hematologic/Lymphatic Hematologic/Lymphatic: Reports systems reviewed and no addt'l complaints, exceptas documented EXAM Physical Exam Const Vital Signs: 10/25/24 20:13 10/25/24 20:16 10/25/24 20:24 Temperature 96.9 F L Temperature Source Temporal Pulse Rate 72 66 Pulse Rate [Lying] Pulse Rate [Sitting (for 1 minute prior to obtaining)] Pulse Rate [Standing (for 1 minute prior to obtaining)] Respiratory Rate 18 16 Respiratory Pattern Normal Blood Pressure 136/60 H Blood Pressure [Lying] Blood Pressure [Sitting (for 1 minute prior to obtaining)] Blood Pressure [Standing (for 1 minute prior to obtaining)] Blood Pressure Mean 85 Blood Pressure Mean [Lying] Blood Pressure Mean [Sitting (for 1 minute prior to obtaining)] Blood Pressure Mean [Standing (for 1 minute prior to obtaining)] Pulse Ox 100 100 Oxygen Delivery Method Room Air 10/25/24 20:30 10/25/24 20:36 10/25/24 20:36 Temperature Temperature Source Pulse Rate 68 65 Pulse Rate [Lying] 65 Pulse Rate [Sitting (for 1 minute prior to obtaining)] 66 Pulse Rate [Standing (for 1 minute prior to obtaining)] 74 Respiratory Rate 14 14 Respiratory Pattern Blood Pressure 135/55 H 119/56 L Blood Pressure [Lying] 120/54 L Blood Pressure [Sitting (for 1 minute prior to obtaining)] 119/56 L Blood Pressure [Standing (for 1 minute prior to obtaining)] 130/54 H Blood Pressure Mean 77 74 Blood Pressure Mean [Lying] 76 Blood Pressure Mean [Sitting (for 1 minute prior to obtaining)] 77 Blood Pressure Mean [Standing (for 1 minute prior to obtaining)] 79 Pulse Ox 100 100 Oxygen Delivery Method 10/25/24 20:37 10/25/24 20:38 10/25/24 20:45 Temperature Temperature Source Pulse Rate 66 73 69 Pulse Rate [Lying] Pulse Rate [Sitting (for 1 minute prior to obtaining)] Pulse Rate [Standing (for 1 minute prior to obtaining)] Respiratory Rate 15 20 H 14 Respiratory Pattern Blood Pressure 120/54 L 130/54 H 134/61 H Blood Pressure [Lying] Blood Pressure [Sitting (for 1 minute prior to obtaining)] Blood Pressure [Standing (for 1 minute prior to obtaining)] Blood Pressure Mean 73 76 78 Blood Pressure Mean [Lying] Blood Pressure Mean [Sitting (for 1 minute prior to obtaining)] Blood Pressure Mean [Standing (for 1 minute prior to obtaining)] Pulse Ox 100 98 100 Oxygen Delivery Method 10/25/24 21:00 10/25/24 21:15 10/25/24 21:30 Temperature Temperature Source Pulse Rate 68 73 73 Pulse Rate [Lying] Pulse Rate [Sitting (for 1 minute prior to obtaining)] Pulse Rate [Standing (for 1 minute prior to obtaining)] Respiratory Rate 14 12 12 Respiratory Pattern Blood Pressure 127/53 H 128/60 H 140/59 H Blood Pressure [Lying] Blood Pressure [Sitting (for 1 minute prior to obtaining)] Blood Pressure [Standing (for 1 minute prior to obtaining)] Blood Pressure Mean 74 79 82 Blood Pressure Mean [Lying] Blood Pressure Mean [Sitting (for 1 minute prior to obtaining)] Blood Pressure Mean [Standing (for 1 minute prior to obtaining)] Pulse Ox 100 100 Oxygen Delivery Method 10/25/24 21:39 10/25/24 21:45 10/25/24 22:00 Temperature 97.9 F Temperature Source Pulse Rate 75 80 76 Pulse Rate [Lying] Pulse Rate [Sitting (for 1 minute prior to obtaining)] Pulse Rate [Standing (for 1 minute prior to obtaining)] Respiratory Rate 16 16 11 L Respiratory Pattern Blood Pressure 140/59 H 140/66 H 138/59 H Blood Pressure [Lying] Blood Pressure [Sitting (for 1 minute prior to obtaining)] Blood Pressure [Standing (for 1 minute prior to obtaining)] Blood Pressure Mean 86 88 81 Blood Pressure Mean [Lying] Blood Pressure Mean [Sitting (for 1 minute prior to obtaining)] Blood Pressure Mean [Standing (for 1 minute prior to obtaining)] Pulse Ox 100 100 Oxygen Delivery Method Positive well developed; Negative for well nourished Constitutional Narrative: Patient is very thin. She states she has always been thin. She weighs 46 kg. General Appearance ED: well developed, NAD and pallor; Negative for cyanotic or diaphoretic HEENT Reports moist mucous membranes HEENT Narrative: Head is atraumatic normocephalic. Ears normal. Nares patent. Posterior pharynx is normal. Uvula is midline. No deviation with tongue with protrusion. Eyes PERRL and EOMs intact bilaterally General Eye ED: Yes pale conjunctiva; Negative for scleral icterus Neck no lymphadenopathy, supple and no JVD Chest Wall inspection of chest normal and palpation of chest normal Resp normal respiratory effort and clear to auscultation bilaterally Cardio regular rate, regular rhythm, S1 normal heart sound, S2 normal heart sound and no murmurs GI non-tender and no masses; Negative for non-distended or hepatosplenomegaly GI Narrative: Abdomen is tympanitic. Bowel sounds are increased. 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 There is no blood noted on the dressing. Neuro oriented x3 and CN's II-XII intact bilaterally Sensorium / Orientation: alert Psych mental status grossly normal Skin Skin Narrative: Wound due to Mohs surgery General Skin Exam: pallor; Negative for jaundice Physical Exam Const Vital Signs: 10/25/24 20:13 10/25/24 20:16 10/25/24 20:24 Temperature 96.9 F L Temperature Source Temporal Pulse Rate 72 66 Pulse Rate [Lying] Pulse Rate [Sitting (for 1 minute prior to obtaining)] Pulse Rate [Standing (for 1 minute prior to obtaining)] Respiratory Rate 18 16 Respiratory Pattern Normal Blood Pressure 136/60 H Blood Pressure [Lying] Blood Pressure [Sitting (for 1 minute prior to obtaining)] Blood Pressure [Standing (for 1 minute prior to obtaining)] Blood Pressure Mean 85 Blood Pressure Mean [Lying] Blood Pressure Mean [Sitting (for 1 minute prior to obtaining)] Blood Pressure Mean [Standing (for 1 minute prior to obtaining)] Pulse Ox 100 100 Oxygen Delivery Method Room Air 10/25/24 20:30 10/25/24 20:36 10/25/24 20:36 Temperature Temperature Source Pulse Rate 68 65 Pulse Rate [Lying] 65 Pulse Rate [Sitting (for 1 minute prior to obtaining)] 66 Pulse Rate [Standing (for 1 minute prior to obtaining)] 74 Respiratory Rate 14 14 Respiratory Pattern Blood Pressure 135/55 H 119/56 L Blood Pressure [Lying] 120/54 L Blood Pressure [Sitting (for 1 minute prior to obtaining)] 119/56 L Blood Pressure [Standing (for 1 minute prior to obtaining)] 130/54 H Blood Pressure Mean 77 74 Blood Pressure Mean [Lying] 76 Blood Pressure Mean [Sitting (for 1 minute prior to obtaining)] 77 Blood Pressure Mean [Standing (for 1 minute prior to obtaining)] 79 Pulse Ox 100 100 Oxygen Delivery Method 10/25/24 20:37 10/25/24 20:38 10/25/24 20:45 Temperature Temperature Source Pulse Rate 66 73 69 Pulse Rate [Lying] Pulse Rate [Sitting (for 1 minute prior to obtaining)] Pulse Rate [Standing (for 1 minute prior to obtaining)] Respiratory Rate 15 20 H 14 Respiratory Pattern Blood Pressure 120/54 L 130/54 H 134/61 H Blood Pressure [Lying] Blood Pressure [Sitting (for 1 minute prior to obtaining)] Blood Pressure [Standing (for 1 minute prior to obtaining)] Blood Pressure Mean 73 76 78 Blood Pressure Mean [Lying] Blood Pressure Mean [Sitting (for 1 minute prior to obtaining)] Blood Pressure Mean [Standing (for 1 minute prior to obtaining)] Pulse Ox 100 98 100 Oxygen Delivery Method 10/25/24 21:00 10/25/24 21:15 10/25/24 21:30 Temperature Temperature Source Pulse Rate 68 73 73 Pulse Rate [Lying] Pulse Rate [Sitting (for 1 minute prior to obtaining)] Pulse Rate [Standing (for 1 minute prior to obtaining)] Respiratory Rate 14 12 12 Respiratory Pattern Blood Pressure 127/53 H 128/60 H 140/59 H Blood Pressure [Lying] Blood Pressure [Sitting (for 1 minute prior to obtaining)] Blood Pressure [Standing (for 1 minute prior to obtaining)] Blood Pressure Mean 74 79 82 Blood Pressure Mean [Lying] Blood Pressure Mean [Sitting (for 1 minute prior to obtaining)] Blood Pressure Mean [Standing (for 1 minute prior to obtaining)] Pulse Ox 100 100 Oxygen Delivery Method 10/25/24 21:39 10/25/24 21:45 10/25/24 22:00 Temperature 97.9 F Temperature Source Pulse Rate 75 80 76 Pulse Rate [Lying] Pulse Rate [Sitting (for 1 minute prior to obtaining)] Pulse Rate [Standing (for 1 minute prior to obtaining)] Respiratory Rate 16 16 11 L Respiratory Pattern Blood Pressure 140/59 H 140/66 H 138/59 H Blood Pressure [Lying] Blood Pressure [Sitting (for 1 minute prior to obtaining)] Blood Pressure [Standing (for 1 minute prior to obtaining)] Blood Pressure Mean 86 88 81 Blood Pressure Mean [Lying] Blood Pressure Mean [Sitting (for 1 minute prior to obtaining)] Blood Pressure Mean [Standing (for 1 minute prior to obtaining)] Pulse Ox 100 100 Oxygen Delivery Method MDM MDM MDM Narrative Medical decision making narrative: Suspect vasovagal syncopal episode. Patient appears very pale and has pale conjunctiva. Also concern for GI bleed. Will have nurse perform orthostatic vital signs. History is not consistent with cardiac ischemia. Will obtain EKG to see if there is any dysrhythmia or ischemic changes. CBC was obtained assessH&H and platelet count. Basic metabolic panel was obtained to assess BUN to creatinine ratio as well as renal function. I was informed at 2041 the patient orthostatics were positive. When she stood she passed out prior to nurse being able to obtain a blood pressure or heart rate. This raises concern for GI bleed especially since patient appears very pale. History & Record Review Additional record(s) reviewed:: Prior inpatient record (Patient hospitalized August 2022. Reviewed Dr. Kenna Chirinos's discharge note. She was admitted for acute encephalopathy and was diagnosed with a small left temporal stroke. 2D echo revealed an EF of 65%. EEG revealed focal tampering in her right temporal lobe with no evidence of seizure activity..), Prior outpatient record (Urgent care notes from July 2023 for skin tear without complication right hand. Seen by Dr. Fransisco Ford for fatigue andepilepsy in 2022. Se[address] Hooks in August 2022 due to alcohol related issues.), Prior ED visit and Prior labs Lab Data Attestation: I reviewed the patient's lab results. Lab results narrative: CBC is marked for an H&H of 9.7 and 20.4. There is an approximately 4 g drop from 1 month ago. BUN to creatinine ratio is approximately 70-1 which is consistent with a GI bleed. Since patient cannot stand without passing out willplace a Flores because she says she urinates frequently and this would be for herbenefit. Glucose is elevated 141 with a normal CO2 anion gap. Since patient has history of alcohol abuse PT/INR was added as well as PTT to determine if she has a coagulopathy and to assess her liver function. Patient does take a baby aspirin a day. She is on ababy aspirin a day because she had a prior stroke according to the and patient. Labs: Laboratory Results - last 24 hr 10/25/24 20:15 WBC 5.6 RBC 2.99 L Hgb 9.7 L Hct 28.4 L MCV 95.0 MCH 32.4 H MCHC 34.2 RDW Std Deviation 42.0 RDW Coeff of Bruna 12.1 Plt Count 144 L MPV 10.4 PT 14.4 INR 1.1 APTT 25.3 Sodium 126 L Potassium 4.1 Chloride 89 L Carbon Dioxide 26.5 Anion Gap 11 BUN 34 H Creatinine 0.48 L Estim Creat Clear Calc 40.22 L Est GFR (MDRD) Non-Af 95 BUN/Creatinine Ratio 71.4 H Glucose 141 H Calcium 8.3 Patient was typed and screened. Crossmatch was not ordered at this time. SinceI have not heard backfrom the hospitalist the night physician was made aware. Patient requires full admission for upper GI bleed with orthostatic hypotension EKG Initial EKG: Attestation: I personally reviewed and interpreted this EKG as follows: Interpretation: Sinus Rhythm (Rate is 65. RI interval 200 ms. Cures duration 90 ms. QT duration 4 to 10 ms. [place] is to the left. There is evidence of a left anterior fascicular block.) MDM MDM Narrative Medical decision making narrative: Suspect vasovagal syncopal episode. Patient appears very pale and has pale conjunctiva. Also concern for GI bleed. Will have nurse perform orthostatic vital signs. History is not consistent with cardiac ischemia. Will obtain EKG to see if there is any dysrhythmia or ischemic changes. CBC was obtained assessH&H and platelet count. Basic metabolic panel was obtained to assess BUN to creatinine ratio as well as renal function. I was informed at 2041 the patient orthostatics were positive. When she stood she passed out prior to nurse being able to obtain a blood pressure or heart rate. This raises concern for GI bleed especially since patient appears very pale. 10:[address] Farnsworth called back discussion with him he will except the patient for admission forsyncope in the setting of upper GI bleed. Patient notified is agreeable this plan all course concerns answered. Lab Data Labs: Laboratory Results - last 24 hr 10/25/24 20:15 WBC 5.6 RBC 2.99 L Hgb 9.7 L Hct 28.4 L MCV 95.0 MCH 32.4 H MCHC 34.2 RDW Std Deviation 42.0 RDW Coeff of Bruna 12.1 Plt Count 144 L MPV 10.4 PT 14.4 INR 1.1 APTT 25.3 Sodium 126 L Potassium 4.1 Chloride 89 L Carbon Dioxide 26.5 Anion Gap 11 BUN 34 H Creatinine 0.48 L Estim Creat Clear Calc 40.22 L Est GFR (MDRD) Non-Af 95 BUN/Creatinine Ratio 71.4 H Glucose 141 H Calcium 8.3 Discharge Plan Dx/Rx/DC Orders Clinical Impression: Acute gastrointestinal bleeding, Subclinical hypothyroidism, Alcohol abuse, Orthostatic hypotension, Syncope and collapse Disposition Disposition: Acute Care Hospital [facility] What to do if you have Problems For any increased pain, shortness of breath, bleeding, nausea or vomiting, chestpain, or any unexpected problems, contact your Primary Care Provider. Call [employer] [facility] ([phone]) or report tothe closest Emergency Room. Call 911 if necessary. 10/27/242209 Cosigner Signature (if applicable): 10/25/248 CC: Dr. Jamal Johns MD ~ Signed [facility]05-24-2025 Progress note Author Laya Crisostomo [facility] Note Date/Time October 27, 2024 11:32 am [facility] Medical Records Department [address] [place] [address] Progress Note - Hospitalist 10/27/24 0705 MR#: [id number] Acct: [id number] Name: NURSE,RADHA OBRIEN Rep #:[id number] : 1945 79 From: Laya Crisostomo DO PCP: Dr. Jamal Johns MD Status:ADM IN Location: [place] [address] Reason for Visit Reason for Visit: Syncope/melanotic stool Subjective Subjective Patient complaining because we have not fed her real food yet. I did discuss the findings on the EGD and she voiced understanding. She did tolerate clear liquids without any problem. I do plan to advance her diet to full liquids and then a regular diet this afternoon. She seems pleased with this. We did discuss the need for Protonix use ongoing orally and then Carafate for short-term. Hemoglobin seems to be stable. We did discuss possible discharge home aslong as she seems to be hemodynamically stable and blood counts remain stable. Objective Data Objective Data Vital Signs: Vital Signs Temp Pulse Resp BP Pulse Ox O2 Del Method 97.6 F L 67 18 128/57 H 97 Room Air 10/27/24 03:19 10/27/24 03:19 10/27/24 03:19 10/27/24 03:19 10/27/24 03:19 10/27/24 03:19 Oxygen Delivery Method Room Air Weight: 38 kg Body Mass Index (BMI) 15.0 Intake & Output: Intake and Output for Last 24 Hours 10/25/24 10/26/24 10/27/24 23:59 23:59 23:59 Intake Total 2872.83 / 2872.83 290 / 290 Output Total 600 / 1175 2175 / 2175 900 / 900 Balance -600 / -1175 697.83 / 697.83 -610 / -610 Lab / Micro Data 10/27/24 04:58 10/27/24 04:58 Labs: Laboratory Results - last 24 hr 10/25/24 00:01: Urine Osmolality 305 10/25/24 23:18: Crossmatch See Detail 10/26/24 04:01: Iron 69, TIBC 271, Iron Saturation 25.0, Unsaturated IBC 202 L, Ferritin 35, Vitamin B12 446, Serum Folate 14.90 10/26/24 13:39: POC Glucose 106 10/26/24 13:50: Hgb 9.0 L, Hct 26.4 L 10/27/24 04:58: WBC 13.3 H, RBC 3.99 L, Hgb 12.6, Hct 35.2 L, MCV 88.2 D, MCH 31.6, MCHC 35.8 D, RDW Std Deviation 45.1 H, RDW Coeff of Bruna 14.0, Plt Count 104 L, MPV 10.4, Immature Gran % (Auto) 0.400, Neut % (Auto) 87.5 H, Lymph % (Auto) 3.9 L, [place] % (Auto) 7.3, Eos % (Auto) 0.5, Baso % (Auto) 0.4, Absolute Neuts (auto) 11.6 H, Absolute Lymphs (auto) 0.52 L, Nucleated RBC % 0, Sodium 125 L, Potassium 3.2 L, Chloride 90 L, Carbon Dioxide 25.1, Anion Gap 10, BUN 8,Creatinine 0.31 L, Estim Creat Clear Calc 33.09 L, Est GFR (MDRD) Non-Af 105, BUN/Creatinine Ratio 25.3 H, Glucose 115 H, Calcium 7.8, Phosphorus 3.1, Magnesium 1.7, Total Bilirubin 0.93, AST 34 H, ALT 29, Alkaline Phosphatase 67, Total Protein 5.1 L, Albumin 3.5, Globulin 1.6 L, Albumin/Globulin Ratio 2.2 Micro: Microbiology 10/25/24 20:49 Stool Stool Occult Blood (FROILAN) - Final Occult Blood Positive Radiography Diagnostic Testing: Radiology Impression Echocardiogram 10/25/24 23:47 Interpretation Summary The estimated ejection fraction is 65 %. No evidence for diastolic dysfunction. There is mild biatrial dilatation. Ordering Physician: Pastor Hernandez Referring Physician: Jamal Johns Performed By: Sandra Pinto, RDCS, RVT Physical Exam Const alert, oriented x3 and no apparent distress; Negative for average body habitus, healthy appearing or well nourished Constitutional Narrative: Frail, thin, elderly, white female, sleeping on arrival but awakens easily to name, appears comfortable, nontoxic, very pleasant General Appearance: cooperative HEENT normocephalic, head/scalp atraumatic, hearing grossly normal bilaterally and moist oral mucous membranes HEENT Narrative: Mallampati 1, no thrush, significant temporal wasting bilaterally Resp normal respiratory effort, no retractions, no use of accessory muscles and clearto auscultation bilaterally Auscultation: Negative for rales, rhonchi or wheezes Cardio regular rate, regular rhythm, S1 normal heart sound, S2 normal heart sound, no murmurs, no rub, no gallops and no clicks GI normal to inspection, nondistended, normoactive bowel sounds, soft to palpation and non-tender GI Narrative: Scaphoid abdomen Auscultation: hyperactive bowel sounds Extremity no clubbing, cyanosis or edema Extremity Narrative: Decreased lean muscle mass Neuro oriented x3, moves all extremities and no focal motor deficits Speech: speech normal Psych affect normal Psych Narrative: Very pleasant, interacts appropriately Assessment & Plan Assessment/Plan (1) Thrombocytopenia: (2) Melena: (3) Syncope and collapse: (4) Orthostatic hypotension: (5) Acute gastrointestinal bleeding: (6) Acute anemia: (7) Peptic ulcer disease: (8) Hypokalemia: PLAN: Plan Acute GI bleed secondary to peptic ulcer disease - EGD performed on 10/26/2024 that showed normal esophagus, oozing gastric ulcer with a visible vessel that was treated with heater probe and a nonbleeding gastric ulcer with an adherent clot. Clip was placed - Has been doing well on a clear liquid diet--> advance to full and if toleratesthat well will advance to regular diet - Discontinue IV fluids - Discontinue Protonix drip and transition her to p.o. Protonix 40 mg twice daily - Start Carafate 4 times daily - Biopsies are pending -Continue to hold aspirin for an indefinite amount of time until further clarified by gastroenterology suspect at least 2 weeks if not more - GI is following-appreciate input Acute anemia - Baseline hemoglobin appears to run between 12 and 14 - Stas hemoglobin was 8.4 - Patient was symptomatic and that she was having syncopal episodes with a hemoglobin of 8.4 so she was transfused 2 units of packed red blood cells on 10/26/2024 -Now if you get the other thing I will talk to Tim hemoglobin today is 12.6 - Repeat CBC in a.m. and if hemoglobin remained stable anticipate discharge home Thrombocytopenia - Suspect consumptive with GI bleeding - Repeat CBC in a.m. Chronic hyponatremia - 125 today and relatively stable compared to previous - Repeat BMP in a.m. Hypokalemia - P.o. potassium replacement - Recheck in a.m. 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 - Status post Mohs procedure on the day of presentation Epilepsy - Continue home gabapentin Hyperlipidemia - Continue home rosuvastatin History of alcohol abuse - Patient quit drinking in 2022 - EGD pending History of tobacco abuse - Remote DVT prophylaxis - SCDs - No chemoprophylaxis due to GI bleed CODE STATUS - DNR CCA no intubation Charges/Coding Visit Charges Inpatient E&M: 80118 [facility] Hosp L2 10/27/24 1132 <Electronically signed by Laya Crisostomo DO> Cosigner Signature (if applicable): CC: ~ Signed [facility] Work Phone: 1(288) 902-506305-24-2025 Progress note [facility] Medical Records Department [address] [place] [address] Progress Note - Hospitalist 10/27/24 0705 MR#: [id number] Acct: [id number] Name: NURSE,RADHA OBRIEN Rep #:[id number] : 1945 79 From: Laya Crisostomo DO PCP: Dr. Jamal Johns MD Status:ADM IN Location: [place] [address] Reason for Visit Reason for Visit: Syncope/melanotic stool Subjective Subjective Patient complaining because we have not fed her real food yet. I did discuss the findings on the EGD and she voiced understanding. She did tolerate clear liquids without any problem. I do plan to advance her diet to full liquids and then a regular diet this afternoon. She seems pleased with this. We did discuss the need for Protonix use ongoing orally and then Carafate for short-term. Hemoglobin seems to be stable. We did discuss possible discharge home aslong as she seems to be hemodynamicallystable and blood counts remain stable. Objective Data Objective Data Vital Signs: Vital Signs Temp Pulse Resp BP Pulse Ox O2 Del Method 97.6 F L 67 18 128/57 H 97 Room Air 10/27/24 03:19 10/27/24 03:19 10/27/24 03:19 10/27/24 03:19 10/27/24 03:19 10/27/24 03:19 Oxygen Delivery Method Room Air Weight: 38 kg Body Mass Index (BMI) 15.0 Intake & Output: Intake and Output for Last 24 Hours 10/25/24 10/26/24 10/27/24 23:59 23:59 23:59 Intake Total 2872.83 / 2872.83 290 / 290 Output Total 600 / 1175 2175 / 2175 900 / 900 Balance -600 / -1175 697.83 / 697.83 -610 / -610 Lab / Micro Data 10/27/24 04:58 10/27/24 04:58 Labs: Laboratory Results - last 24 hr 10/25/24 00:01: Urine Osmolality 305 10/25/24 23:18: Crossmatch See Detail 10/26/24 04:01: Iron 69, TIBC 271, Iron Saturation 25.0, Unsaturated IBC 202 L, Ferritin 35, Vitamin B12 446, Serum Folate 14.90 10/26/24 13:39: POC Glucose 106 10/26/24 13:50: Hgb 9.0 L, Hct 26.4 L 10/27/24 04:58: WBC 13.3 H, RBC 3.99 L, Hgb 12.6, Hct 35.2 L, MCV 88.2 D, MCH 31.6, MCHC 35.8 D, RDW Std Deviation 45.1 H, RDW Coeff of Bruna 14.0, Plt Count 104 L, MPV 10.4, Immature Gran % (Auto) 0.400, Neut % (Auto) 87.5 H, Lymph % (Auto) 3.9 L, [place] % (Auto) 7.3, Eos % (Auto) 0.5, Baso % (Auto) 0.4, Absolute Neuts (auto) 11.6 H, Absolute Lymphs (auto) 0.52 L, Nucleated RBC % 0, Sodium 125 L, Potassium 3.2 L, Chloride 90 L, Carbon Dioxide 25.1, Anion Gap 10, BUN 8,Creatinine 0.31 L, Estim Creat Clear Calc 33.09 L, Est GFR (MDRD) Non-Af 105, BUN/Creatinine Ratio 25.3 H, Glucose 115 H, Calcium7.8, Phosphorus 3.1, Magnesium 1.7, Total Bilirubin 0.93, AST 34 H, ALT 29, Alkaline Phosphatase 67, Total Protein 5.1 L, Albumin 3.5, Globulin 1.6 L, Albumin/Globulin Ratio 2.2 Micro: Microbiology 10/25/24 20:49 Stool Stool Occult Blood (FROILAN) - Final Occult Blood Positive Radiography Diagnostic Testing: Radiology Impression Echocardiogram 10/25/24 23:47 Interpretation Summary The estimated ejection fraction is 65 %. No evidence for diastolic dysfunction. There is mild biatrial dilatation. Ordering Physician: Pastor Hernandez Referring Physician: Jamal Johns Performed By: Sandra Pinto, DAVID, RVT Physical Exam Const alert, oriented x3 and no apparent distress; Negative for average body habitus, healthy appearing or well nourished Constitutional Narrative: Frail, thin, elderly, white female, sleeping on arrival but awakens easily to name, appears comfortable, nontoxic, very pleasant General Appearance: cooperative HEENT normocephalic, head/scalp atraumatic, hearing grossly normal bilaterally and moist oral mucous membranes HEENT Narrative: Mallampati 1, no thrush, significant temporal wasting bilaterally Resp normal respiratory effort, no retractions, no use of accessory muscles and clearto auscultation bilaterally Auscultation: Negative for rales, rhonchi or wheezes Cardio regular rate, regular rhythm, S1 normal heart sound, S2 normal heart sound, no murmurs, no rub, no gallops and no clicks GI normal to inspection, nondistended, normoactive bowel sounds, soft to palpation and non-tender GI Narrative: Scaphoid abdomen Auscultation: hyperactive bowel sounds Extremity no clubbing, cyanosis or edema Extremity Narrative: Decreased lean muscle mass Neuro oriented x3, moves all extremities and no focal motor deficits Speech: speech normal Psych affect normal Psych Narrative: Very pleasant, interacts appropriately Assessment & Plan Assessment/Plan (1) Thrombocytopenia: (2) Melena: (3) Syncope and collapse: (4) Orthostatic hypotension: (5) Acute gastrointestinal bleeding: (6) Acute anemia: (7) Peptic ulcer disease: (8) Hypokalemia: PLAN: Plan Acute GI bleed secondary to peptic ulcer disease - EGD performed on 10/26/2024 that showed normal esophagus, oozing gastric ulcer with a visible vessel that was treated with heater probe and a nonbleeding gastric ulcer with an adherent clot. Clip was placed - Has been doing well on a clear liquid diet--> advance to full and if toleratesthat well will advance to regular diet - Discontinue IV fluids - Discontinue Protonix drip and transition her to p.o. Protonix 40 mg twice daily - Start Carafate 4 times daily - Biopsies are pending -Continue to hold aspirin for an indefinite amount of time until further clarified by gastroenterology suspect at least 2 weeks if not more - GI is following-appreciate input Acute anemia - Baseline hemoglobin appears to run between 12 and 14 - Stas hemoglobin was 8.4 - Patient was symptomatic and that she was having syncopal episodes with a hemoglobin of 8.4 so shewas transfused 2 units of packed red blood cells on 10/26/2024 -Now if you get the other thing I will talk to Tim hemoglobin today is 12.6 - Repeat CBC in a.m. and if hemoglobin remained stable anticipate discharge home Thrombocytopenia - Suspect consumptive with GI bleeding - Repeat CBC in a.m. Chronic hyponatremia - 125 today and relatively stable compared to previous - Repeat BMP in a.m. Hypokalemia - P.o. potassium replacement - Recheck in a.m. 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 - Status post Mohs procedure on the day of presentation Epilepsy - Continue home gabapentin Hyperlipidemia - Continue home rosuvastatin History of alcohol abuse - Patient quit drinking in 2022 - EGD pending History of tobacco abuse - Remote DVT prophylaxis - SCDs - No chemoprophylaxis due to GI bleed CODE STATUS - DNR CCA no intubation Charges/Coding Visit Charges Inpatient E&M: 41334 Subs Hosp L2 10/27/24 1132 Cosigner Signature (if applicable): CC: ~ Signed [facility]05-23-2025 Consult note Author Ankur Mccartney [facility] Note Date/Time October 26, 2024 4:34p m [facility] Medical Records Department [address] [place] [address] Anesthesia Postop Eval I 10/26/24 1632 MR#: [id number] Acct: [id number] Name: NURSERADHA Rep #:[id number] : 1945 79 From: Ankur PATRICIO PCP: Dr. Jamla Johns MD Status:ADM IN Y Race: C Location: [place] [address]- Anesthesia: Postop Eval I Current Vital Signs Temperature: 98.4 F Pulse Rate: 77 Blood Pressure: 99/56 Respiratory Rate: 16 Pulse Ox: 94 Assessment Airway patent: Yes Spontaneous unlabored respirations: Yes nausea: No Vomiting: No Anesthesia Complication: No Fluid Hydration Crystalloid volume administer (ml): 300 Total IV fluid infused: 300 Progress Note Anesthesia document: Postop Eval 1 completed: Yes 10/26/24 1634 <Electronically signed by Ankur Mccartney CRNA> Date _ Ankur Mccartney CRNA Cosigner Signature: Date CC: ~ Signed [facility] Work Phone: 1(690) 557-856305-23-2025 Consult note Author Ankur Sherrill [facility] Note Date/Time October 26, 2024 4:34p [facility] Medical Records Department [address] [place] [id number] Anesthesia Postop Eval II 10/26/24 1634 MR#: [id number] Acct: [id number] Name: RADHA Rep #:[id number] : 1945 79 From: Ankur VELÁZQUEZ NA PCP: Dr. Jamal Johns MD Status:ADM IN Y Race: C Location: [place] [address] Anesthesia Postop Eval I Sum Postop Eval Completion status Anesthesia document: Postop Eval 1 completed: Yes Anesthesia Postop Eval I Summary Anesthesia Postop Eval I Summary: Anesthesia Postop Eval I: Assessment Summary Airway patent Yes 10/26/24 16:33 ACCOUNTS PAYABLE REPRESENTATIVE.TNES Spontaneous unlabored Yes 10/26/24 16:33 ACCOUNTS PAYABLE REPRESENTATIVE.TNES respirations Mental status nausea No 10/26/24 16:33 ACCOUNTS PAYABLE REPRESENTATIVE.TNES Vomiting No 10/26/24 16:33 ACCOUNTS PAYABLE REPRESENTATIVE.TNES Anesthesia Postop Eval I: Fluid Summary Crystalloid volume administer 300 10/26/24 16:33 ACCOUNTS PAYABLE REPRESENTATIVE.TNES (ml) Colloids volume administered ( ml) Blood Product volume administered (ml) Total IV fluid infused 300 10/26/24 16:33 ACCOUNTS PAYABLE REPRESENTATIVECANDI Anesthesia Postop Eval I: Summary Notes Anesthesia Complication No 10/26/24 16:33 ACCOUNTS PAYABLE REPRESENTATIVEEmaTNDOMENIC Anesthesia Complication Comment: Post-operative progress note Anesthesia: Postop Eval II Evaluation Mental status: Awake Pain Level: 0 nausea: No Vomiting: No 10/26/24 1634 <Electronically signed by Ankur Mccartney CRNA> Date _ Ankur Mccartney CRNA Cosigner Signature: Date CC: ~ Signed [facility] Work Phone: [phone]) 319-895805-23-2025 Consult note Author Aurelio Friend [facility] Note Date/Time October 26, 2024 4:00p m [facility] Medical Records Department [address] [place] [id number] Consultation - GI 10/26/24 1546 MR#: [id number] Acct: [id number] Name: NURSE,RADHA OBRIEN Rep #:[id number] : 1945 79 From: Aurelio Rivera PCP: Dr. Jamal Johns MD Status:ADM IN Location: [place] [id number] HPI Consult Data Date of Consult: 10/26/24 HPI Narrative Reason for Consultation: GI bleed HPI Narrative: RADHA ABAD, is a 79 F presented to [facility] ER complaining of syncope and abdominal pain with subsequent melanotic stool. She has a history of iron deficiency anemia, alcoholism and thrombocytopenia on aspirin. She had a syncopal episode while eating at [employer]. She denies a history of peptic ulcer disease, coronary artery disease or similar previous episodes. She also admits to her vision tunneling before she blacked. Blood work- Thrombocytopenia of 144K with hemoglobin of 9.7 g/dL FORMERLY [facility], [facility]1983 Medical History Fatigue Acute ischemic stroke Epilepsy Alcohol abuse Anxiety Home Medications ?Medication ?Instructions ?Recorded ?Last Taken ?Type aspirin 81 mg chewable tablet 81 mg PO BREAKFAST heart health 08/23/22 Unknown History levothyroxine 50 mcg tablet 50 mcg PO DAILY@0600 30 da ys #30 08/26/22 Unknown Rx tabs rosuvastatin 5 mg tablet 5 mg PO DAILY #90 tabs 01/18 Unknown Rx buspirone 15 mg tablet 15 mg PO TID 10/25/24 Unknow n History gabapentin 300 mg capsule 300 mg PO TID 10/25/24 Unkno wn History Allergy/AdvReac Type Severity Reaction Status Date / Time Milk Containing Products Allergy Diarrhea Verified 10/25/24 20:17 (Dairy) (Milk Containing Products) Surgical History Hx of hysterectomy Social History household members: spouse Smoking Status: Former smoker alcohol intake: former year quit: 2022 details: Recently quit drinking alcohol 2-3 weeks ago. substance use type: does not use what type of physical activity do you participate in: walking frequency: daily colleen/samaritan: Episcopal seatbelt use: always ROS ROS Narrative Review of Systems: Constitutional: Patient denies fever, chills or weight loss. Eyes: Patient admits to tunnel vision prior to blacking out. ENT: Patient denies runny nose, sore throat or ear pain. Resp: Patient denies shortness of breath or cough. CV: Patient admits to syncopal event but she denies chest pain, palpitations, heart racing or lower extremity edema. GI: Patient admits to pressure-like lower abdominal pain just prior to expressing melanotic stool with nausea. She denies vomiting or constipation. : Patient denies dysuria, hematuria urinary frequency. MSK: Patient denies arthralgias or myalgias. 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 Psych: Patient denies symptoms of uncontrolled depression or anxiety. Neuro: Patient denies headache, paresthesias or focal neurologic deficits. Allergy: Patient denies lip swelling, tongue swelling or urticaria. Hematology: Patient admits to melanotic stools as per HPI. Endocrinology: Patient denies polyuria, polydipsia, polyphagia or heat/cold intolerance. 14 point ROS otherwise negative save for positives noted above in HPI. Physical Exam Const alert, oriented x3, no apparent distress and healthy appearing General Appearance: cooperative GI normal to inspection, nondistended, normoactive bowel sounds, soft to palpation,non-tender and non-distended Percussion: normal to percussion Rectal Exam: deferred Lab / Micro Data 10/26/24 13:50 10/26/24 04:01 Labs: Laboratory Results - last 24 hr 10/25/24 00:01: Urine Osmolality 305 10/25/24 00:11: Serum Osmolality 277 L, Magnesium 1.9, Vitamin B12 532, Serum Folate 14.20, TSH 1.850 10/25/24 20:15: WBC 5.6, RBC 2.99 L, Hgb 9.7 L, Hct 28.4 L, MCV 95.0, MCH 32.4 H, MCHC 34.2, RDW Std Deviation 42.0, RDW Coeff of Bruna 12.1, Plt Count 144 L, MPV10.4, PT 14.4, INR 1.1, APTT 25.3, Sodium 126 L, Potassium 4.1, Chloride 89 L, Carbon Dioxide 26.5, Anion Gap 11, BUN 34 H, Creatinine 0.48 L, Estim Creat Clear Calc 40.22 L, Est GFR (MDRD) Non-Af 95, BUN/Creatinine Ratio 71.4 H, Glucose 141 H, Calcium 8.3 10/25/24 23:18: Blood Type O POSITIVE, Antibody Screen NEGATIVE, Crossmatch See Detail 10/26/24 00:01: Urine Color Straw, Urine Clarity Clear, Urine pH 8.0, Ur Specific [place] 1.010, Urine Protein Negative, Urine Glucose (UA) Normal, UrineKetones Negative, Urine Occult Blood Negative, Urine Nitrite Negative, Urine Bilirubin Negative, Urine Urobilinogen Normal, Ur Leukocyte Esterase Negative, Urine RBC 0-5 SEEN, Urine WBC 0-5 SEEN, Ur Squamous Epith Cells 0-5 SEEN, Urine Bacteria 0 SEEN, Urine Mucus 0 SEEN 10/26/24 04:01: WBC 3.3 L, RBC 2.64 L, Hgb 8.4 L, Hct 24.7 L, MCV 93.6, MCH 31.8, MCHC 34.0, RDW Std Deviation 40.8, RDW Coeff of Bruna 12.0, Plt Count 118 L,MPV 10.6, Immature Gran % (Auto) 0.300, Neut % (Auto) 59.6, Lymph % (Auto) 23.4,[place] % (Auto) 14.0 H, Eos % (Auto) 1.5, Baso % (Auto) 1.2 H, Absolute Neuts (auto) 2.0, Absolute Lymphs (auto) 0.77 L, Nucleated RBC % 0, PT 14.5, INR 1.1, APTT 27.9, Sodium 130 L, Potassium 3.8, Chloride 96 L, Carbon Dioxide 25.5, Anion Gap 8, BUN 22 H, Creatinine 0.33 L, Estim Creat Clear Calc 34.39 L, Est GFR (MDRD) Non-Af 104, BUN/Creatinine Ratio 66.2 H, Glucose 90, Calcium 7.7, Phosphorus 3.2, Iron 69, TIBC 271, Iron Saturation 25.0, Unsaturated IBC 202 L, Ferritin 35, Total Bilirubin 0.27, Direct Bilirubin 0.17, AST 30, ALT 28, Alkaline Phosphatase 70, Total Protein 4.8 L, Albumin 3.5, Globulin 1.4 L, Albumin/Globulin Ratio 2.5 H, Vitamin B12 446, Serum Folate 14.90 10/26/24 13:39: POC Glucose 106 10/26/24 13:50: Hgb 9.0 L, Hct 26.4 L Micro: Microbiology 10/25/24 20:49 Stool Stool Occult Blood (FROILAN) - Final Occult Blood Positive Imaging Radiology Impression Echocardiogram 10/25/24 23:47 Interpretation Summary The estimated ejection fraction is 65 %. No evidence for diastolic dysfunction. There is mild biatrial dilatation. Ordering Physician: Pastor Hernandez Referring Physician: Jamal Johns Performed By: Sandra Pinto, RDCS, RVT Assessment & Plan Assessment/Plan (1) Upper GI bleed: (2) Melena: (3) Thrombocytopenia: (4) Iron deficiency anemia: (5) Adverse drug reaction: (6) Syncope and collapse: (7) Orthostatic hypotension: (8) Hyponatremia: PLAN: Plan 79-year-old with multiple comorbidities with signs symptoms of GI bleed complicated by thrombocytopenia and anemia. She will undergo an upper endoscopyto evaluate the GI tract. She was explained alternatives, risk and benefits include understanding bleeding, infection, sepsis, perforation, need for emergent urgent . She have an ASA of 3.. Charges/Coding Visit Charges Inpatient E&M: 82573 Init Hosp L3 10/26/24 1600 <Electronically signed by Aurelio Rivera DO> Cosigner Signature (if applicable): CC: Dr. Jamal Johns MD; Dr. Terrance Oswald MD~ Signed [facility] Work Phone: 1(846) 467-363905-23-2025 Consult note Author Jordi galen [facility] Note Date/Time October 26, 2024 2:56p [facility] Medical Records Department [address] [place] [address] Pre-Anesthesia Evaluation 10/26/24 1455 MR#: [id number] Acct: [id number] Name: NURSE,RADHA OBRIEN Rep #:[id number] : 1945 79 From: Jordi Chahal MD PCP: Dr. Jamal Johns MD Status:ADM IN Y Race: C Location: [place] [address] ASA Classification* ASA Classification ASA Classification: 3 Assessment & Plan Anesthesia* Anesthesia Assessment Anesthesia Assessment: Discussed sedation and/or anesthesia options, risks, benefits, and alternatives with patient/parents/legal guardian/POA. Questions invited. The patient/parents/legal guardian/POA seems to understand and agrees to proceedwith anesthesia plan. Reviewed the physical assessment, medical history, allergy history and patient home medications list prior to surgery/procedure/anesthetic and documented any changes. Performed airway and anesthesia risk assessments. Anesthesia Type Anesthesia Type: MAC (Has had some postural hypotension this morning. PRBC's have been ordered and is pending) Anesthesia Focused Assessment* Temperature: 98.3 F Pulse Rate: 77 Blood Pressure: 137/69 Respiratory Rate: 16 Pulse Ox: 95 Airway Assessment Mouth opens: >3 cm Mallampati Score: II Focused Labs Anesthesia Preop lab: CBC WBC 3.3 K/mm3 (4.4-11.0) L 10/26/24 04:01 10/26/24 RBC 2.64 M/mm3 (4.2-5.4) L 10/26/24 04:01 10/26/24 Hgb 9.0 g/dL (12.0-15.0) L 10/26/24 13:50 10/26/24 Hct 26.4 % (37-47) L 10/26/24 13:50 10/26/24 Plt Count 118 K/mm3 (150-450) L 10/26/24 04:01 10/26/24 CHEMISTRY Potassium 3.8 mmol/L (3.3-5.1) 10/26/24 04:01 10/26/24 Sodium 130 mmol/L (133-145) L 10/26/24 04:01 10/26/24 Magnesium 1.9 mg/dL (1.5-2.2) 10/25/24 00:11 10/25/24 Phosphorus 3.2 mg/dL (2.7-4.5) 10/26/24 04:01 10/26/24 BUN 22 mg/dL (4-19) H 10/26/24 04:01 10/26/24 Creatinine 0.33 mg/dL (0.70-1.20) L 10/26/24 04:01 Glucose 90 mg/dL (70-99) 10/26/24 04:01 10/26/24 POC Glucose 106 mg/dL (74-106) 10/26/24 13:39 10/26/24 TSH 1.850 uIU/mL (0.300-4.200) 10/25/24 00:11 05/07/31 COAG PT 14.5 SECONDS (11.7-14.9) 10/26/24 04:01 Pre-Assessment Diagnosis/Proposed Procedure Planned Operative Procedure(s): MALICK Anesthesia History Anesthesia History - ekg monitor tech: Anesthesia History - ekg monitor tech Hx Hospitalization Any Problems With Anesthesia Cholinesterase deficiency You/Your Family Experience fever (hyperthermia) with Relationship Recent Exposure to Contagious Disease Does patient have nerve stimulator Patient instructed to have device shut off --Does patient have Pacemaker or ICD? When Was Last Pacemaker Check QUESTION #4 FULL TEXT: You/Your Family Experience fever (hyperthermia) with Anesthesia Last Oral Intake Last Oral intake: Last Oral Intake NPO since 00:00 10/26/24 13:55 Meds taken in AM with sips of No 10/26/24 13:55 water? Meds patient instructed to take am of surgery PONV PONV - ekg monitor tech: PONV - ekg monitor tech Female HX of Motion Sickness HX of N/V After Surgery Non-Smoker Duration of Surgery greater than 60 minutes Number of Risk Factors PONV Score Height & Weight Height & Weight: Anesthesia: Height & Weight Height 5 ft 2.5 in 10/26/24 13:55 Weight: 39.5 kg 10/26/24 13:55 Body Mass Index (BMI) 15.6 10/26/24 13:55 Respiratory Assessment Respiratory Assessment - ekg monitor tech: Respiratory Tract Infection Hx - ekg monitor tech Hx Respiratory Tract Infection STOP Sleep Apnea STOP Sleep Apnea - ekg monitor tech: STOP Sleep Apnea - ekg monitor tech Hx Hypertension No 10/25/24 23:44 Hx Sleep Apnea No 10/25/24 23:44 CPAP BIPAP Do you snore loudly (louder No 10/25/24 23:44 than talking or can be heard Do you often feel tired/ No 10/25/24 23:44 fatigued/ sleepy during daytime? Has anyone observed you stop No 10/25/24 23:44 breathing during sleep? STOP Results Negative 10/25/24 23:44 QUESTION #5 FULL TEXT : Do you snore loudly (louder than talking or can be heard through closed doors)? Tobacco Use History Tobacco Use History - ekg monitor tech: Tobacco Use History - ekg monitor tech Tobacco Use Smoking Status Former smoker 10/25/24 23:44 Hx Tobacco Use No 10/25/24 23:44 Years Smoking Packs Smoked per Day Smoking Cessation Date was Yes - quit smoking within 10/25/24 23:44 within the last 15 years years Hx Smoking Cessation Date Hx Smoking Cessation Counseling Hematologic Medial History Hematologic Hx - ekg monitor tech: Hematologic Medical Hx - patient care technician instructor Hx of Blood Transfusion No 10/25/24 23:44 Hx of Transfusion in last 3 No 10/25/24 23:44 Months Date of Last Transfusion (if within last 3 months) Ever experience any problems No 10/25/24 23:44 with transfusion(s)? Specify any problems Hx of Preganancy in last 3 N/A 10/25/24 23:44 Months Nurse Filling Out Transfusion JGALLOWAY 10/25/24 23:44 & Questions: Date: 10/26/24 10/25/24 23:44 Time: 00:10/25/24 23:44 Patient unable to answer at this time (ie. confused, unrespo /Reproduction History /Reproductive History - ekg monitor tech: /Reproductive Hx- ekg monitor tech Hx Now Gestational Age (in weeks): EDC: Hx Hx Para Hx Section SAB Active Medications Active Medications: Current Medications Generic Name Dose Route Start Last Admin Trade Name Freq PRN Reason Stop Dose Admin Atorvastatin Calcium 10 mg 10/26/24 10:00 Atorvastatin Calcium 10 Mg Tablet PO DAILY ROXANNE Buspirone HCl 15 mg 10/26/24 14:00 Buspirone 15 Mg Tablet PO TID ROXANNE Gabapentin 300 mg 10/26/24 14:00 Gabapentin 300 Mg Capsule PO TID ROXANNE Sodium Chloride 250 mls @ 15 mls/hr 10/25/24 23:45 IV .[id number] PRN Saline Flush Sodium Chloride 250 mls @ 15 mls/hr 10/25/24 23:45 IV .[id number] PRN Additional IVPB Infusion Pantoprazole Sodium 80 mg/ 100 mls @ 10 mls/hr 10/25/24 23:47 10/26/24 10:09 Sodium Chloride CONT INF 10 mls/hr Q10H ROXANNE Administration Levothyroxine Sodium 50 mcg 10/27/24 06:00 Levothyroxine 50 Mcg Tablet PO DAILY@0600 ROXANNE Lorazepam 1 mg 10/25/24 23:47 Lorazepam 2 Mg/Ml Wch Syringe IV Q4H PRN PRN SEIZURES Morphine Sulfate 2 mg 10/25/24 23:47 Morphine 2 Mg/Ml Syringe IV Q4H PRN PRN Pain Score 6-10 Ondansetron HCl 4 mg 10/25/24 23:47 Ondansetron 4 Mg/2 Ml Vial IV Q6H PRN PRN NAUSEA/VOMITING Prochlorperazine Edisylate 5 mg 10/25/24 23:47 Prochlorperazine 10 Mg/2 Ml Vial IV Q4H PRN PRN NAUSEA/VOMITING Promethazine HCl 12.5 mg 10/25/24 23:47 Promethazine 25 Mg/Ml Syringe IM Q4H PRN PRN BREAKTHROUGH NAUSEA Sodium Chloride 10 - 40 ml 10/25/24 23:45 10/26/24 00:51 0.9% Saline Lock 10 Ml Syringe IV 10 ml UD PRN Administration SALINE FLUSH PFSH Medical History Fatigue Acute ischemic stroke Epilepsy Alcohol abuse Anxiety Home Medications ?Medication ?Instructions ?Recorded ?Last Taken ?Type aspirin 81 mg chewable tablet 81 mg PO BREAKFAST heart health 08/23/22 Unknown H istory levothyroxine 50 mcg tablet 50 mcg PO DAILY@0600 30 da ys #30 08/26/22 Unknown Rx tabs rosuvastatin 5 mg tablet 5 mg PO DAILY #90 tabs 01/18 Unknown Rx buspirone 15 mg tablet 15 mg PO TID 10/25/24 Unknow n History gabapentin 300 mg capsule 300 mg PO TID 10/25/24 Unkno wn History Allergy/AdvReac Type Severity Reaction Status Date / Time Milk Containing Products Allergy Diarrhea Verified 10/25/24 20:17 (Dairy) (Milk Containing Products) Surgical History Hx of hysterectomy Social History household members: spouse Smoking Status: Former smoker alcohol intake: former year quit: 2022 details: Recently quit drinking alcohol 2-3 weeks ago. substance use type: does not use what type of physical activity do you participate in: walking frequency: daily colleen/samaritan: Episcopal seatbelt use: always Review of Systems (Anesthesia) ROS Narrative System reviewed and no additional complaints, except as documented. 10/26/24 2116 <Electronically signed by Jordi Chahal MD > Date _ Jordi Chahal MD Cosigner Signature: Date CC: ~ Signed [facility] Work Phone: 1(598) 244-764305-23-2025 Consult note [facility] Medical Records Department [address] [place] [address] Anesthesia Postop Eval I 10/26/24 163 MR#: [id number] Acct: [id number] Name: NURSE,RADHA OBRIEN Rep #:[id number] : 1945 79 From: Ankur PATRICIO PCP: Dr. Jamal Johns MD Status:ADM IN Y Race: C Location: [place] [address] Anesthesia: Postop Eval I Current Vital Signs Temperature: 98.4 F Pulse Rate: 77 Blood Pressure: 99/56 Respiratory Rate: 16 Pulse Ox: 94 Assessment Airway patent: Yes Spontaneous unlabored respirations: Yes nausea: No Vomiting: No Anesthesia Complication: No Fluid Hydration Crystalloid volume administer (ml): 300 Total IV fluid infused: 300 Progress Note Anesthesia document: Postop Eval 1 completed: Yes 10/26/241633 ACCOUNTS PAYABLE REPRESENTATIVE> Date _ Ankur Mccartney ACCOUNTS PAYABLE REPRESENTATIVE Cosigner Signature: Date CC: ~ Signed [facility]05-23-2025 Consult note [facility] Medical Records Department [address] [place] [address] Anesthesia Postop Eval II 10/26/241633 MR#: [id number] Acct: [id number] Name: RADHA MICAH Rep #:[id number] : 1945 79 From: Ankur PATRICIO PCP: Dr. Jamal Johns MD Status:ADM IN Y Race: C Location: [place] [address] Anesthesia Postop Eval I Sum Postop Eval Completion status Anesthesia document: Postop Eval 1 completed: Yes Anesthesia Postop Eval I Summary Anesthesia Postop Eval I Summary: Anesthesia Postop Eval I: Assessment Summary Airway patent Yes 10/26/24 16:33 ACCOUNTS PAYABLE REPRESENTATIVE.TNES Spontaneous unlabored Yes 10/26/24 16:33 ACCOUNTS PAYABLE REPRESENTATIVE.TNES respirations Mental status nausea No 10/26/24 16:33 ACCOUNTS PAYABLE REPRESENTATIVE.TNES Vomiting No 10/26/24 16:33 ACCOUNTS PAYABLE REPRESENTATIVE.TNES Anesthesia Postop Eval I: Fluid Summary Crystalloid volume administer 300 10/26/24 16:33 ACCOUNTS PAYABLE REPRESENTATIVE.TNES (ml) Colloids volume administered ( ml) Blood Product volume administered (ml) Total IV fluid infused 300 10/26/24 16:33 ACCOUNTS PAYABLE REPRESENTATIVE.TNES Anesthesia Postop Eval I: Summary Notes Anesthesia Complication No 10/26/24 16:33 ACCOUNTS PAYABLE REPRESENTATIVE.TNES Anesthesia Complication Comment: Post-operative progress note Anesthesia: Postop Eval II Evaluation Mental status: Awake Pain Level: 0 nausea: No Vomiting: No 10/26/24 1634 ACCOUNTS PAYABLE REPRESENTATIVE> Date _ Ankur Mccartney ACCOUNTS PAYABLE REPRESENTATIVE Cosigner Signature: Date CC: ~ Signed [facility]05-23-2025 Procedure note [facility] Medical Records Department [address] [place] [address] EGD Report MR#: [id number] Acct: [id number] Name: RADHA ABAD Rep #:[id number] : 1945 79 From: Aurelio Rivera DO PCP: Dr. Jamal Johns MD Status:ADM IN Patient Name: Radha Abad Procedure Date: 10/26/2024 4:09 PM Date of : 1945 Age: 79 Procedure: Upper GI endoscopy Indications: Epigastric abdominal pain, Hematemesis, Melena Providers: Aurelio Rivera DO Referring MD: Terrance Oswald MD Medicines: Monitored Anesthesia Care Patient Profile: This is an 79 year old female. Refer to note in patient chart for documentation of history and physical. Patient has symptoms of acute epigastric abdominal pain. Complications: No immediate complications. Procedure: Pre-Anesthesia Assessment: - Prior to the procedure, a History and Physical was performed, and patient medications and allergies were reviewed. The patient is competent. The risks and benefits of the procedure and the sedation options and risks were discussed with the patient. All questions were answered and informed consent was obtained. Patient identification and proposed procedure were verified by the physician in the pre-procedure area. Mental Status Examination: alert and oriented. Airway Examination: normal oropharyngeal airway and neck mobility. Respiratory Examination: clear to auscultation. CV Examination: normal. Prophylactic Antibiotics: The patient does not require prophylactic antibiotics. Prior Anticoagulants: The patient has taken no anticoagulant or antiplatelet agents except for NSAID medication. ASA Grade Assessment: II - A patient with mild systemic disease. After reviewing the risks and benefits, the patient was deemed in satisfactory condition to undergo the procedure. The anesthesia plan was to use monitored anesthesia care (MAC). Immediately prior to administration of medications, the patient was re-assessed for adequacy to receive sedatives. The heart rate, respiratory rate, oxygen saturations, blood pressure, adequacy of pulmonary ventilation, and response to care were monitored throughout the procedure. The physical status of the patient was re-assessed after the procedure. After obtaining informed consent, the endoscope was passed under direct vision. Throughout the procedure, the patient's blood pressure, pulse, and oxygen saturations were monitored continuously. The Endoscope was introduced through the mouth, and advanced to the fourth part of the duodenum. Small bowel enteroscopy was deemed necessary. The upper GI endoscopy was accomplished without difficulty. The patient tolerated the procedure well. Scope In: 4:18:10 PM Scope Out: 4:27:10 PM Total Procedure Duration Time 0 hours 9 minutes 0 seconds Findings: The examined esophagus was normal. One oozing cratered gastric ulcer with a visible vessel was found in the gastric antrum. The lesion was 22 mm in largest dimension. Coagulation for hemostasis using heater probe was successful. Estimated blood loss was minimal. One non-bleeding cratered gastric ulcer with adherent clot was found in the prepyloric region of the stomach. The lesion was 10 mm in largest dimension. To stop active bleeding, one hemostatic clip was successfully placed. Clip drywall taper helper: [employer]. There was no bleeding at the end of the procedure. No gross lesions were noted in the entire examined duodenum. Impression: - Normal esophagus. - Oozing gastric ulcer with a visible vessel. Treated with a heater probe. - Non-bleeding gastric ulcer with adherent clot. Clip was placed. Clip drywall taper helper: [employer]. - No gross lesions in the entire examined duodenum. - No specimens collected. Recommendation: - [facility] care. - Clear liquid diet today. - Continue present medications. - Use Protonix (pantoprazole) 40 mg PO BID. - Use sucralfate tablets 1 gram PO QID for 1 month. Procedure Code(s): --- Professional --- 50310, Small intestinal endoscopy, enteroscopy beyond second portion of duodenum, not including ileum; with control of bleeding (eg, injection, bipolar cautery, unipolar cautery, laser, heater probe, stapler, plasma inspector returned materials) CPT copyright 2021 [employer]. All rights reserved. The codes documented in this report are preliminary and upon records specialist review may be revised to meet current compliance requirements. Aurelio Rivera DO 10/26/2024 4:31:55 PM This report has been signed electronically. Number of Addenda: 0 Note Initiated On: 10/26/2024 4:09 PM 10/26/24 1632 Date _ Aurelio Peterson Signature: Date (if indicated) CC: Dr. Jamal Johns MD; Aurelio Rivera DO ~ Date Dictated: 10/26/24 1609 Date Transcribed: Rig Hand: RF Signed [facility]05-23-2025 Procedure note [facility] Medical Records Department [address] [place] [address] Operative Report - CC Letter MR#: [id number] Acct: [id number] Name: NURSE,RADHA OBRIEN Rep #:[id number] : 1945 79 From: Aurelio Rivera DO PCP: Dr. Jamal Johns MD Status:ADM IN 10/26/2024 Jamal Johns Md Re : Upper GI endoscopy procedure for Radha Nurse Dear Nat This procedure was performed on Saturday, October 26, 2024. My impressions and recommendations are as follows: Impressions : - Normal esophagus. - Oozing gastric ulcer with a visible vessel. Treated with a heater probe. - Non-bleeding gastric ulcer with adherent clot. Clip was placed. Clip drywall taper helper: [employer]. - No gross lesions in the entire examined duodenum. - No specimens collected. Recommendations : - [facility] to [facility] for [facility] care. - Clear liquid diet today. - Continue present medications. - Use Protonix (pantoprazole) 40 mg PO BID. - Use sucralfate tablets 1 gram PO QID for 1 month. My findings are described in the full procedure note, which is enclosed. If I can be of further assistance, please feel free to contact me at . Sincerely, Aurelio Rivera DO 10/26/2024 4:31:55 PM This report has been signed electronically. 10/26/24 1632 Date _ Aurelio Rivera DO Cosigner Signature: Date (if indicated) CC: Dr. Jamal Johns MD; Dr. Pastor Hernandez DO; Dr. Laya Crisostomo DO; Dr. Bradley MD ~ Date Dictated: 10/26/24 1609 Date Transcribed: Rig Hand: RF Signed [facility]05-23-2025 Progress note Author Laya Crisostomo [facility] Note Date/Time October 26, 2024 2:16p m [facility] Medical Records Department [address] [place] [address] Progress Note - Hospitalist 10/26/24 0753 MR#: [id number] Acct: [id number] Name: NURSE,RADHA OBRIEN Rep #:[id number] : 1945 79 From: Laya Crisostomo DO PCP: Dr. Jamal Johns MD Status:ADM IN Location: [place] [address] Reason for Visit Reason for Visit: Syncope/melanotic stool Subjective Subjective Patient denies any abdominal pain. States she is feeling fine right now. Has no complaints. Patient states she has never had colonoscopy. Only had a sigmoidoscopy previously with no previous colonoscopy. Was profoundly orthostatic positive. Objective Data Objective Data Vital Signs: Vital Signs Temp Pulse Resp BP Pulse Ox O2 Del Method 97 F L 69 18 139/60 H 98 Room Air 10/26/24 05:27 10/26/24 05:27 10/26/24 05:27 10/26/24 05:27 10/26/24 05:27 10/26/24 01:08 Oxygen Delivery Method Room Air Weight: 39.5 kg Body Mass Index (BMI) 15.6 Intake & Output: Intake and Output for Last 24 Hours 10/24/24 10/25/24 10/26/24 23:59 23:59 23:59 Output Total 600 / 1175 1425 / 1425 Balance -600 / -1175 -1425 / -1425 Lab / Micro Data 10/26/24 04:01 10/26/24 04:01 Labs: Laboratory Results - last 24 hr 10/25/24 00:11: Serum Osmolality 277 L, Magnesium 1.9, Vitamin B12 532, Serum Folate 14.20, TSH 1.850 10/25/24 20:15: WBC 5.6, RBC 2.99 L, Hgb 9.7 L, Hct 28.4 L, MCV 95.0, MCH 32.4 H, MCHC 34.2, RDW Std Deviation 42.0, RDW Coeff of Bruna 12.1, Plt Count 144 L, MPV10.4, PT 14.4, INR 1.1, APTT 25.3, Sodium 126 L, Potassium 4.1, Chloride 89 L, Carbon Dioxide 26.5, Anion Gap 11, BUN 34 H, Creatinine 0.48 L, Estim Creat Clear Calc 40.22 L, Est GFR (MDRD) Non-Af 95, BUN/Creatinine Ratio 71.4 H, Glucose 141 H, Calcium 8.3 10/25/24 23:18: Blood Type O POSITIVE, Antibody Screen NEGATIVE 10/26/24 00:01: Urine Color Straw, Urine Clarity Clear, Urine pH 8.0, Ur Specific [place] 1.010, Urine Protein Negative, Urine Glucose (UA) Normal, UrineKetones Negative, Urine Occult Blood Negative, Urine Nitrite Negative, Urine Bilirubin Negative, Urine Urobilinogen Normal, Ur Leukocyte Esterase Negative, Urine RBC 0-5 SEEN, Urine WBC 0-5 SEEN, Ur Squamous Epith Cells 0-5 SEEN, Urine Bacteria 0 SEEN, Urine Mucus 0 SEEN 10/26/24 04:01: WBC 3.3 L, RBC 2.64 L, Hgb 8.4 L, Hct 24.7 L, MCV 93.6, MCH 31.8, MCHC 34.0, RDW Std Deviation 40.8, RDW Coeff of Bruna 12.0, Plt Count 118 L,MPV 10.6, Immature Gran % (Auto) 0.300, Neut % (Auto) 59.6, Lymph % (Auto) 23.4,[place] % (Auto) 14.0 H, Eos % (Auto) 1.5, Baso % (Auto) 1.2 H, Absolute Neuts (auto) 2.0, Absolute Lymphs (auto) 0.77 L, Nucleated RBC % 0, PT 14.5, INR 1.1, APTT 27.9, Sodium 130 L, Potassium 3.8, Chloride 96 L, Carbon Dioxide 25.5, Anion Gap 8, BUN 22 H, Creatinine 0.33 L, Estim Creat Clear Calc 34.39 L, Est GFR (MDRD) Non-Af 104, BUN/Creatinine Ratio 66.2 H, Glucose 90, Calcium 7.7, Phosphorus 3.2, Total Bilirubin 0.27, Direct Bilirubin 0.17, AST 30, ALT 28, Alkaline Phosphatase 70, Total Protein 4.8 L, Albumin 3.5, Globulin 1.4 L, Albumin/Globulin Ratio 2.5 H Micro: Microbiology 10/25/24 20:49 Stool Stool Occult Blood (FROILAN) - Final Occult Blood Positive Physical Exam Const alert, oriented x3 and no apparent distress; Negative for average body habitus, healthy appearing or well nourished Constitutional Narrative: Frail, thin, elderly, white female, lying in bed, daughter and at bedside appears comfortable, nontoxic, very pleasant HEENT head/scalp atraumatic and moist oral mucous membranes HEENT Narrative: Mallampati is 1-2, no thrush Head and Scalp: normocephalic Resp normal respiratory effort, no retractions, no use of accessory muscles and clearto auscultation bilaterally Auscultation: Negative for rales, rhonchi or wheezes Cardio regular rate, regular rhythm, S1 normal heart sound, S2 normal heart sound, no murmurs, no rub, no gallops and no clicks GI normal to inspection, nondistended, normoactive bowel sounds, soft to palpation and non-tender GI Narrative: Scaphoid abdomen Extremity no clubbing, cyanosis or edema Extremity Narrative: Decreased lean muscle mass Neuro oriented x3, moves all extremities and no focal motor deficits Speech: speech normal Psych affect normal Psych Narrative: Very pleasant, interacts appropriately Assessment & Plan Assessment/Plan (1) Thrombocytopenia: (2) Melena: (3) Syncope and collapse: (4) Orthostatic hypotension: (5) Acute gastrointestinal bleeding: (6) Acute anemia: PLAN: Plan Acute GI bleed - Suspected upper with BUN/creatinine ratio and melanotic stool -Patient denies any persistent NSAID use other than baby aspirin daily - EGD is planned for later today - Continue n.p.o. - Continue IV fluids with normal saline at 70 cc/h - Continue Protonix drip - Has never previously had GI bleed - Has never had colonoscopy - Gastroenterology is consulted Acute anemia -Baseline hemoglobin appears to run between 12 and 14 - Most recently on 09/25/2024 was 13.1 - 8.4 today on a.m. lab will repeat at 2 PM - Likely the etiology for her orthostasis - Transfuse for any more significant loss or automatic transfusion for hemoglobin less than 7 - Treatment as above - Patient not having any more melanotic stool since arrival Thrombocytopenia - Suspect consumptive with GI bleeding - Repeat CBC in a.m. Chronic hyponatremia - 130 - Seems to be consistent with her baseline - repeat CBC in a.m. - If further drop will pursue further workup. 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 - Status post Mohs procedure on the day of presentation Epilepsy - Restart home gabapentin Hyperlipidemia - Continue home rosuvastatin History of alcohol abuse - Patient quit drinking in 2022 - EGD pending History of tobacco abuse - Remote DVT prophylaxis - SCDs - No chemoprophylaxis due to GI bleed CODE STATUS - DNR CCA no intubation Charges/Coding Visit Charges Inpatient E&M: 04163 Subs Hosp L2 10/26/24 1416 <Electronically signed by Laya Crisostomo DO> Cosigner Signature (if applicable): CC: ~ Signed [facility] Work Phone: [phone]) 954-827205-23-2025 Consult note [facility] Medical Records Department [address] [place] [id number] Consultation - GI 10/26/24 1546 MR#: [id number] Acct: [id number] Name: NURSE,RADHA SOUZANE Rep #:[id number] : 1945 79 From: Aurelio Rivera DO PCP: Dr. Jamal Johns MD Status:ADM IN Location: [place] [id number] HPI Consult Data Date of Consult: 10/26/24 HPI Narrative Reason for Consultation: GI bleed HPI Narrative: RADHA ABAD, is a 79 F presented to [facility] ER complaining of syncope and abdominal pain with subsequent melanotic stool. She has a history of iron deficiency anemia, alcoholism and thrombocytopenia on aspirin. She had a syncopal episode while eating at [employer]. She denies a history of peptic ulcer disease, coronary artery disease or similar previous episodes. She also admits to her vision tunneling before she blacked. Blood work- Thrombocytopenia of 144K with hemoglobin of 9.7 g/dL FORMERLY [facility], [facility]1983 Medical History Fatigue Acute ischemic stroke Epilepsy Alcohol abuse Anxiety Home Medications ?Medication ?Instructions ?Recorded ?Last Taken ?Type aspirin 81 mg chewable tablet 81 mg PO BREAKFAST heart health 08/23/22 Unknown History levothyroxine 50 mcg tablet 50 mcg PO DAILY@0600 30 da ys #30 08/26/22 Unknown Rx tabs rosuvastatin 5 mg tablet 5 mg PO DAILY #90 tabs 01/18 Unknown Rx buspirone 15 mg tablet 15 mg PO TID 10/25/24 Unknow n History gabapentin 300 mg capsule 300 mg PO TID 10/25/24 Unkno wn History Allergy/AdvReac Type Severity Reaction Status Date / Time Milk Containing Products Allergy Diarrhea Verified 10/25/24 20:17 (Dairy) (Milk Containing Products) Surgical History Hx of hysterectomy Social History household members: spouse Smoking Status: Former smoker alcohol intake: former year quit: 2022 details: Recently quit drinking alcohol 2-3 weeks ago. substance use type: does not use what type of physical activity do you participate in: walking frequency: daily colleen/samaritan: Episcopal seatbelt use: always ROS ROS Narrative Review of Systems: Constitutional: Patient denies fever, chills or weight loss. Eyes: Patient admits to tunnel vision prior to blacking out. ENT: Patient denies runny nose, sore throat or ear pain. Resp: Patient denies shortness of breath or cough. CV: Patient admits to syncopal event but she denies chest pain, palpitations, heart racing or lowerextremity edema. GI: Patient admits to pressure-like lower abdominal pain just prior to expressing melanotic stool with nausea. She denies vomiting or constipation. : Patient denies dysuria, hematuria urinary frequency. MSK: Patient denies arthralgias or myalgias. 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 Psych: Patient denies symptoms of uncontrolled depression or anxiety. Neuro: Patient denies headache, paresthesias or focal neurologic deficits. Allergy: Patient denies lip swelling, tongue swelling or urticaria. Hematology: Patient admits to melanotic stools as per HPI. Endocrinology: Patient denies polyuria, polydipsia, polyphagia or heat/cold intolerance. 14 point ROS otherwise negative save for positives noted above in HPI. Physical Exam Const alert, oriented x3, no apparent distress and healthy appearing General Appearance: cooperative GI normal to inspection, nondistended, normoactive bowel sounds, soft to palpation,non-tender and non-distended Percussion: normal to percussion Rectal Exam: deferred Lab / Micro Data 10/26/24 13:50 10/26/24 04:01 Labs: Laboratory Results - last 24 hr 10/25/24 00:01: Urine Osmolality 305 10/25/24 00:11: Serum Osmolality 277 L, Magnesium 1.9, Vitamin B12 532, Serum Folate 14.20, TSH 1.850 10/25/24 20:15: WBC 5.6, RBC 2.99 L, Hgb 9.7 L, Hct 28.4 L, MCV 95.0, MCH 32.4 H, MCHC 34.2, RDW Std Deviation 42.0, RDW Coeff of Bruna 12.1, Plt Count 144 L, MPV10.4, PT 14.4, INR 1.1, APTT 25.3, Sodium 126 L, Potassium 4.1, Chloride 89 L, Carbon Dioxide 26.5, Anion Gap 11, BUN 34 H, Creatinine 0.48L, Estim Creat Clear Calc 40.22 L, Est GFR (MDRD) Non-Af 95, BUN/Creatinine Ratio 71.4 H, Glucose 141 H, Calcium 8.3 10/25/24 23:18: Blood Type O POSITIVE, Antibody Screen NEGATIVE, Crossmatch See Detail 10/26/24 00:01: Urine Color Straw, Urine Clarity Clear, Urine pH 8.0, Ur Specific [place] 1.010, Urine Protein Negative, Urine Glucose (UA) Normal, UrineKetones Negative, Urine Occult Blood Negative,Urine Nitrite Negative, Urine Bilirubin Negative, Urine Urobilinogen Normal, Ur Leukocyte Esterase Negative, Urine RBC 0-5 SEEN, Urine WBC 0-5 SEEN, Ur Squamous Epith Cells 0-5 SEEN, Urine Bacteria 0SEEN, Urine Mucus 0 SEEN 10/26/24 04:01: WBC 3.3 L, RBC 2.64 L, Hgb 8.4 L, Hct 24.7 L, MCV 93.6, MCH 31.8, MCHC 34.0, RDW Std Deviation 40.8, RDW Coeff of Bruna 12.0, Plt Count 118 L,MPV 10.6, Immature Gran % (Auto) 0.300, Neut % (Auto) 59.6, Lymph % (Auto) 23.4,[place] % (Auto) 14.0 H, Eos % (Auto) 1.5, Baso % (Auto) 1.2 H, Absolute Neuts (auto) 2.0, Absolute Lymphs (auto) 0.77 L, Nucleated RBC % 0, PT 14.5, INR 1.1, APTT 27.9, Sodium 130 L, Potassium 3.8, Chloride 96 L, Carbon Dioxide 25.5, Anion Gap 8, BUN 22 H, Creatinine 0.33 L, Estim Creat Clear Calc 34.39 L, Est GFR (MDRD) Non-Af 104, BUN/Creatinine Ratio 66.2 H, Glucose 90, Calcium 7.7, Phosphorus 3.2, Iron 69, TIBC 271, Iron Saturation 25.0, Unsaturated IBC 202L, Ferritin 35, Total Bilirubin 0.27, Direct Bilirubin 0.17, AST 30, ALT 28, Alkaline Phosphatase 70, Total Protein 4.8 L, Albumin 3.5, Globulin 1.4 L, Albumin/Globulin Ratio 2.5 H, Vitamin B12 446, Serum Folate 14.90 10/26/24 13:39: POC Glucose 106 10/26/24 13:50: Hgb 9.0 L, Hct 26.4 L Micro: Microbiology 10/25/24 20:49 Stool Stool Occult Blood (FROILAN) - Final Occult Blood Positive Imaging Radiology Impression Echocardiogram 10/25/24 23:47 Interpretation Summary The estimated ejection fraction is 65 %. No evidence for diastolic dysfunction. There is mild biatrial dilatation. Ordering Physician: Pastor Hernandez Referring Physician: Jamal Johns Performed By: Sandra Pinto, DAVID, RVT Assessment & Plan Assessment/Plan (1) Upper GI bleed: (2) Melena: (3) Thrombocytopenia: (4) Iron deficiency anemia: (5) Adverse drug reaction: (6) Syncope and collapse: (7) Orthostatic hypotension: (8) Hyponatremia: PLAN: Plan 79-year-old with multiple comorbidities with signs symptoms of GI bleed complicated by thrombocytopenia and anemia. She will undergo an upper endoscopyto evaluate the GI tract. She was explained alternatives, risk and benefits include understanding bleeding, infection, sepsis, perforation, need foremergent urgent . She have an ASA of 3.. Charges/Coding Visit Charges Inpatient E&M: 96518 Init Hosp L3 10/26/24 1600 Cosigner Signature (if applicable): CC: Dr. Jamal Johns MD; Dr. Terrance Oswald MD~ Signed [facility]05-23-2025 Consult note [facility] Medical Records Department [address] [place] [address] Pre-Anesthesia Evaluation 10/26/24 1455 MR#: [id number] Acct: [id number] Name: NURSE,RADHA OBRIEN Rep #:[id number] : 1945 79 From: Jordi Chahal MD PCP: Dr. Jamal Johns MD Status:ADM IN Y Race: C Location: [place] [address] ASA Classification* ASA Classification ASA Classification: 3 Assessment & Plan Anesthesia* Anesthesia Assessment Anesthesia Assessment: Discussed sedation and/or anesthesia options, risks, benefits, and alternatives with patient/parents/legal guardian/POA. Questions invited. The patient/parents/legal guardian/POA seems to understand and agrees to proceedwith anesthesia plan. Reviewed the physical assessment, medical history, allergy history and patient home medications list prior to surgery/procedure/anesthetic and documented any changes. Performed airway and anesthesia risk assessments. Anesthesia Type Anesthesia Type: MAC (Has had some postural hypotension this morning. PRBC's have been ordered and is pending) Anesthesia Focused Assessment* Temperature: 98.3 F Pulse Rate: 77 Blood Pressure: 137/69 Respiratory Rate: 16 Pulse Ox: 95 Airway Assessment Mouth opens: >3 cm Mallampati Score: II Focused Labs Anesthesia Preop lab: CBC WBC 3.3 K/mm3 (4.4-11.0) L 10/26/24 04:01 10/26/24 RBC 2.64 M/mm3 (4.2-5.4) L 10/26/24 04:01 10/26/24 Hgb 9.0 g/dL (12.0-15.0) L 10/26/24 13:50 10/26/24 Hct 26.4 % (37-47) L 10/26/24 13:50 10/26/24 Plt Count 118 K/mm3 (150-450) L 10/26/24 04:01 10/26/24 CHEMISTRY Potassium 3.8 mmol/L (3.3-5.1) 10/26/24 04:01 10/26/24 Sodium 130 mmol/L (133-145) L 10/26/24 04:01 10/26/24 Magnesium 1.9 mg/dL (1.5-2.2) 10/25/24 00:11 10/25/24 Phosphorus 3.2 mg/dL (2.7-4.5) 10/26/24 04:01 10/26/24 BUN 22 mg/dL (4-19) H 10/26/24 04:01 10/26/24 Creatinine 0.33 mg/dL (0.70-1.20) L 10/26/24 04:01 Glucose 90 mg/dL (70-99) 10/26/24 04:01 10/26/24 POC Glucose 106 mg/dL (74-106) 10/26/24 13:39 10/26/24 TSH 1.850 uIU/mL (0.300-4.200) 10/25/24 00:11 0507/31 COAG PT 14.5 SECONDS (11.7-14.9) 10/26/24 04:01 Pre-Assessment Diagnosis/Proposed Procedure Planned Operative Procedure(s): MALICK Anesthesia History Anesthesia History - ekg monitor tech: Anesthesia History - ekg monitor tech Hx Hospitalization Any Problems With Anesthesia Cholinesterase deficiency You/Your Family Experience fever (hyperthermia) with Relationship Recent Exposure to Contagious Disease Does patient have nerve stimulator Patient instructed to have device shut off --Does patient have Pacemaker or ICD? When Was Last Pacemaker Check QUESTION #4 FULL TEXT: You/Your Family Experience fever (hyperthermia) with Anesthesia Last Oral Intake Last Oral intake: Last Oral Intake NPO since 00:00 10/26/24 13:55 Meds taken in AM with sips of No 10/26/24 13:55 water? Meds patient instructed to take am of surgery PONV PONV - ekg monitor tech: PONV - ekg monitor tech Female HX of Motion Sickness HX of N/V After Surgery Non-Smoker Duration of Surgery greater than 60 minutes Number of Risk Factors PONV Score Height & Weight Height & Weight: Anesthesia: Height & Weight Height 5 ft 2.5 in 10/26/24 13:55 Weight: 39.5 kg 10/26/24 13:55 Body Mass Index (BMI) 15.6 10/26/24 13:55 Respiratory Assessment Respiratory Assessment - ekg monitor tech: Respiratory Tract Infection Hx - ekg monitor tech Hx Respiratory Tract Infection STOP Sleep Apnea STOP Sleep Apnea - ekg monitor tech: STOP Sleep Apnea - ekg monitor tech Hx Hypertension No 10/25/24 23:44 Hx Sleep Apnea No 10/25/24 23:44 CPAP BIPAP Do you snore loudly (louder No 10/25/24 23:44 than talking or can be heard Do you often feel tired/ No 10/25/24 23:44 fatigued/ sleepy during daytime? Has anyone observed you stop No 10/25/24 23:44 breathing during sleep? STOP Results Negative 10/25/24 23:44 QUESTION #5 FULL TEXT : Do you snore loudly (louder than talking or can be heard through closeddoors)? Tobacco Use History Tobacco Use History - ekg monitor tech: Tobacco Use History - ekg monitor tech Tobacco Use Smoking Status Former smoker 10/25/24 23:44 Hx Tobacco Use No 10/25/24 23:44 Years Smoking Packs Smoked per Day Smoking Cessation Date was Yes - quit smoking within 15 10/25/24 23:44 within the last 15 years years Hx Smoking Cessation Date Hx Smoking Cessation Counseling Hematologic Medial History Hematologic Hx - ekg monitor tech: Hematologic Medical Hx - patient care technician instructor Hx of Blood Transfusion No 10/25/24 23:44 Hx of Transfusion in last 3 No 10/25/24 23:44 Months Date of Last Transfusion (if within last 3 months) Ever experience any problems No 10/25/24 23:44 with transfusion(s)? Specify any problems Hx of Preganancy in last 3 N/A 10/25/24 23:44 Months Nurse Filling Out Transfusion JGALLOWAY 10/25/24 23:44 & Questions: Date: 10/26/24 10/25/24 23:44 Time: 00:26 10/25/24 23:44 Patient unable to answer at this time (ie. confused, unrespo /Reproduction History /Reproductive History - ekg monitor tech: /Reproductive Hx- ekg monitor tech Hx Now Gestational Age (in weeks): EDC: Hx Hx Para Hx Section SAB Active Medications Active Medications: Current Medications Generic Name Dose Route Start Last Admin Trade Name Freq PRN Reason Stop Dose Admin Atorvastatin Calcium 10 mg 10/26/24 10:00 Atorvastatin Calcium 10 Mg Tablet PO DAILY ROXANNE Buspirone HCl 15 mg 10/26/24 14:00 Buspirone 15 Mg Tablet PO TID ROXANNE Gabapentin 300 mg 10/26/24 14:00 Gabapentin 300 Mg Capsule PO TID ROXANNE Sodium Chloride 250 mls @ 15 mls/hr 10/25/24 23:45 IV .[id number] PRN Saline Flush Sodium Chloride 250 mls @ 15 mls/hr 10/25/24 23:45 IV .[id number] PRN Additional IVPB Infusion Pantoprazole Sodium 80 mg/ 100 mls @ 10 mls/hr 10/25/24 23:47 10/26/24 10:09 Sodium Chloride CONT INF 10 mls/hr Q10H ROXANNE Administration Levothyroxine Sodium 50 mcg 10/27/24 06:00 Levothyroxine 50 Mcg Tablet PO DAILY@0600 ROXANNE Lorazepam 1 mg 10/25/24 23:47 Lorazepam 2 Mg/Ml Wch Syringe IV Q4H PRN PRN SEIZURES Morphine Sulfate 2 mg 10/25/24 23:47 Morphine 2 Mg/Ml Syringe IV Q4H PRN PRN Pain Score 6-10 Ondansetron HCl 4 mg 10/25/24 23:47 Ondansetron 4 Mg/2 Ml Vial IV Q6H PRN PRN NAUSEA/VOMITING Prochlorperazine Edisylate 5 mg 10/25/24 23:47 Prochlorperazine 10 Mg/2 Ml Vial IV Q4H PRN PRN NAUSEA/VOMITING Promethazine HCl 12.5 mg 10/25/24 23:47 Promethazine 25 Mg/Ml Syringe IM Q4H PRN PRN BREAKTHROUGH NAUSEA Sodium Chloride 10 - 40 ml 10/25/24 23:45 10/26/24 00:51 0.9% Saline Lock 10 Ml Syringe IV 10 ml UD PRN Administration SALINE FLUSH PFSH Medical History Fatigue Acute ischemic stroke Epilepsy Alcohol abuse Anxiety Home Medications ?Medication ?Instructions ?Recorded ?Last Taken ?Type aspirin 81 mg chewable tablet 81 mg PO BREAKFAST [facility] 08/23/22 Unknown H istory levothyroxine 50 mcg tablet 50 mcg PO DAILY@0600 30 da ys #30 08/26/22 Unknown Rx tabs rosuvastatin 5 mg tablet 5 mg PO DAILY #90 tabs 01/18 Unknown Rx buspirone 15 mg tablet 15 mg PO TID 10/25/24 Unknow n History gabapentin 300 mg capsule 300 mg PO TID 10/25/24 Unkno wn History Allergy/AdvReac Type Severity Reaction Status Date / Time Milk Containing Products Allergy Diarrhea Verified 10/25/24 20:17 (Dairy) (Milk Containing Products) Surgical History Hx of hysterectomy Social History household members: spouse Smoking Status: Former smoker alcohol intake: former year quit: 2022 details: Recently quit drinking alcohol 2-3 weeks ago. substance use type: does not use what type of physical activity do you participate in: walking frequency: daily colleen/samaritan: Episcopal seatbelt use: always Review of Systems (Anesthesia) ROS Narrative System reviewed and no additional complaints, except as documented. 10/26/24 1456 > Date _ Jordi Lozada Signature: Date CC: ~ Signed [facility]05-23-2025 Progress note [facility] Medical Records Department [address] [place] [address] Progress Note - Hospitalist 10/26/24 0753 MR#: [id number] Acct: [id number] Name: NURSE,RADHA OBRIEN Rep #:[id number] : 1945 79 From: Laya Crisostomo DO PCP: Dr. Jamal Johns MD Status:ADM IN Location: [place] [address] Reason for Visit Reason for Visit: Syncope/melanotic stool Subjective Subjective Patient denies any abdominal pain. States she is feeling fine right now. Has no complaints. Patientstates she has never had colonoscopy. Only had a sigmoidoscopy previously with no previous colonoscopy. Was profoundly orthostatic positive. Objective Data Objective Data Vital Signs: Vital Signs Temp Pulse Resp BP Pulse Ox O2 Del Method 97 F L 69 18 139/60 H 98 Room Air 10/26/24 05:27 10/26/24 05:27 10/26/24 05:27 10/26/24 05:27 10/26/24 05:27 10/26/24 01:08 Oxygen Delivery Method Room Air Weight: 39.5 kg Body Mass Index (BMI) 15.6 Intake & Output: Intake and Output for Last 24 Hours 10/24/24 10/25/24 10/26/24 23:59 23:59 23:59 Output Total 600 / 1175 1425 / 1425 Balance -600 / -1175 -1425 / -1425 Lab / Micro Data 10/26/24 04:01 10/26/24 04:01 Labs: Laboratory Results - last 24 hr 10/25/24 00:11: Serum Osmolality 277 L, Magnesium 1.9, Vitamin B12 532, Serum Folate 14.20, TSH 1.850 10/25/24 20:15: WBC 5.6, RBC 2.99 L, Hgb 9.7 L, Hct 28.4 L, MCV 95.0, MCH 32.4 H, MCHC 34.2, RDW Std Deviation 42.0, RDW Coeff of Bruna 12.1, Plt Count 144 L, MPV10.4, PT 14.4, INR 1.1, APTT 25.3, Sodium 126 L, Potassium 4.1, Chloride 89 L, Carbon Dioxide 26.5, Anion Gap 11, BUN 34 H, Creatinine 0.48L, Estim Creat Clear Calc 40.22 L, Est GFR (MDRD) Non-Af 95, BUN/Creatinine Ratio 71.4 H, Glucose 141 H, Calcium 8.3 10/25/24 23:18: Blood Type O POSITIVE, Antibody Screen NEGATIVE 10/26/24 00:01: Urine Color Straw, Urine Clarity Clear, Urine pH 8.0, Ur Specific [place] 1.010, Urine Protein Negative, Urine Glucose (UA) Normal, UrineKetones Negative, Urine Occult Blood Negative,Urine Nitrite Negative, Urine Bilirubin Negative, Urine Urobilinogen Normal, Ur Leukocyte Esterase Negative, Urine RBC 0-5 SEEN, Urine WBC 0-5 SEEN, Ur Squamous Epith Cells 0-5 SEEN, Urine Bacteria 0SEEN, Urine Mucus 0 SEEN 10/26/24 04:01: WBC 3.3 L, RBC 2.64 L, Hgb 8.4 L, Hct 24.7 L, MCV 93.6, MCH 31.8, MCHC 34.0, RDW Std Deviation 40.8, RDW Coeff of Bruna 12.0, Plt Count 118 L,MPV 10.6, Immature Gran % (Auto) 0.300, Neut % (Auto) 59.6, Lymph % (Auto) 23.4,[place] % (Auto) 14.0 H, Eos % (Auto) 1.5, Baso % (Auto) 1.2 H, Absolute Neuts (auto) 2.0, Absolute Lymphs (auto) 0.77 L, Nucleated RBC % 0, PT 14.5, INR 1.1, APTT 27.9, Sodium 130 L, Potassium 3.8, Chloride 96 L, Carbon Dioxide 25.5, Anion Gap 8, BUN 22 H, Creatinine 0.33 L, Estim Creat Clear Calc 34.39 L, Est GFR (MDRD) Non-Af 104, BUN/Creatinine Ratio 66.2 H, Glucose 90, Calcium 7.7, Phosphorus 3.2, Total Bilirubin 0.27, Direct Bilirubin 0.17, AST 30, ALT 28, Alkaline Phosphatase 70, Total Protein 4.8 L, Albumin 3.5, Globulin 1.4 L, Albumin/Globulin Ratio 2.5 H Micro: Microbiology 10/25/24 20:49 Stool Stool Occult Blood (FROILAN) - Final Occult Blood Positive Physical Exam Const alert, oriented x3 and no apparent distress; Negative for average body habitus, healthy appearing or well nourished Constitutional Narrative: Frail, thin, elderly, white female, lying in bed, daughter and at bedside appears comfortable, nontoxic, very pleasant HEENT head/scalp atraumatic and moist oral mucous membranes HEENT Narrative: Mallampati is 1-2, no thrush Head and Scalp: normocephalic Resp normal respiratory effort, no retractions, no use of accessory muscles and clearto auscultation bilaterally Auscultation: Negative for rales, rhonchi or wheezes Cardio regular rate, regular rhythm, S1 normal heart sound, S2 normal heart sound, no murmurs, no rub, no gallops and no clicks GI normal to inspection, nondistended, normoactive bowel sounds, soft to palpation and non-tender GI Narrative: Scaphoid abdomen Extremity no clubbing, cyanosis or edema Extremity Narrative: Decreased lean muscle mass Neuro oriented x3, moves all extremities and no focal motor deficits Speech: speech normal Psych affect normal Psych Narrative: Very pleasant, interacts appropriately Assessment & Plan Assessment/Plan (1) Thrombocytopenia: (2) Melena: (3) Syncope and collapse: (4) Orthostatic hypotension: (5) Acute gastrointestinal bleeding: (6) Acute anemia: PLAN: Plan Acute GI bleed - Suspected upper with BUN/creatinine ratio and melanotic stool -Patient denies any persistent NSAID use other than baby aspirin daily - EGD is planned for later today - Continue n.p.o. - Continue IV fluids with normal saline at 70 cc/h - Continue Protonix drip - Has never previously had GI bleed - Has never had colonoscopy - Gastroenterology is consulted Acute anemia -Baseline hemoglobin appears to run between 12 and 14 - Most recently on 09/25/2024 was 13.1 - 8.4 today on a.m. lab will repeat at 2 PM - Likely the etiology for her orthostasis - Transfuse for any more significant loss or automatic transfusion for hemoglobin less than 7 - Treatment as above - Patient not having any more melanotic stool since arrival Thrombocytopenia - Suspect consumptive with GI bleeding - Repeat CBC in a.m. Chronic hyponatremia - 130 - Seems to be consistent with her baseline - repeat CBC in a.m. - If further drop will pursue further workup. 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 - Status post Mohs procedure on the day of presentation Epilepsy - Restart home gabapentin Hyperlipidemia - Continue home rosuvastatin History of alcohol abuse - Patient quit drinking in 2022 - EGD pending History of tobacco abuse - Remote DVT prophylaxis - SCDs - No chemoprophylaxis due to GI bleed CODE STATUS - DNR CCA no intubation Charges/Coding Visit Charges Inpatient E&M: 38368 Subs Hosp L2 10/26/24 1416 Cosigner Signature (if applicable): CC: ~ Signed [facility]05-23-2025 History and physical note Author Pastor Iverson [facility] Note Date/Time October 26, 2024 6:08a m [facility] Medical Records Department [address] [place] [address] H&P Exam - Hospitalist 10/25/247 MR#: [id number] Acct: [id number] Name: NURSE,RADHAEASTON ALCAZARMICAH Rep #:[id number] : 1945 79 From: Pastor Garcia DO PCP: Dr. Jamal Johns MD Status:ADM IN Location: [place] [id number] - General General Date of Admission: 10/25/24 Date of Service: 10/25/24 Chief Complaint: Syncope and Abdominal Pain with subsequent Melanotic Stool. JASON ABAD, is a 79 F with a past medical history of hyperlipidemia; on rosuvastatin, hypothyroidism; on levothyroxine, former tobacco abuse, history ofischemic CVA on baby aspirin daily, epilepsy; on gabapentin TID, orthostatic hypotension, depression with anxiety; on buspirone 3 times daily, history of hyponatremia, history of THOM, history of EtOH abuse; with patient claiming having quit drinking in 2022, history of hysterectomy, OA; with chronic debilityand recently diagnosed squamous cell carcinoma; s/p Mohs surgery for excision 2 lesions on her Left calf earlier today who presents to [facility] ER complaining of syncope and abdominal pain with subsequent melanotic stool. Mrs. Abad reports her symptoms began just prior to arrival after she had a syncopal episode while eating at [employer]. She states her symptoms came on suddenly and she was witnessed to have completely passed out. She also admits to painful pressure sensation in her lower abdomen like she has to have a bowel movement with nausea and subsequent melanotic stool with patient's noting her to be pale and diaphoretic. She admits to a history of iron deficiency anemia but she denies a history of peptic ulcer disease, coronary artery disease or similar previous episodes. She also admits to her vision tunneling before she blacked out but she denies associated fever, chills, weightloss, runny nose, sore throat, ear pain, chest pain, palpitations, heart racing,lower extremity edema, shortness of breath, cough, dysuria, hematuria, urinary frequency, arthralgias, myalgias, headache or rash. In the ER she was diagnosedwith UGIB suspected to be due to PUD likely due to Adverse Drug Reaction to unopposed daily BASA complicated by mild Thrombocytopenia of 144K with hemoglobin of 9.7 g/dL present on admission compounded by Hyponatremia of 126 mmol/L present on admission and she was then admitted to the PCU for ongoing care for stay that is expected to extend beyond 2 midnights. FORMERLY [facility], [facility] Medical History Fatigue Acute ischemic stroke Epilepsy Alcohol abuse Anxiety Home Medications ?Medication ?Instructions ?Recorded ?Last Taken ?Type aspirin 81 mg chewable tablet 81 mg PO BREAKFAST [facility] 08/23/22 Unknown History levothyroxine 50 mcg tablet 50 mcg PO DAILY@0600 30 da ys #30 08/26/22 Unknown Rx tabs rosuvastatin 5 mg tablet 5 mg PO DAILY #90 tabs 01/18 Unknown Rx buspirone 15 mg tablet 15 mg PO TID 10/25/24 Unknow n History gabapentin 300 mg capsule 300 mg PO TID 10/25/24 Unkno wn History Allergy/AdvReac Type Severity Reaction Status Date / Time Milk Containing Products Allergy Diarrhea Verified 10/25/24 20:17 (Dairy) (Milk Containing Products) Surgical History Hx of hysterectomy Social History household members: spouse Smoking Status: Former smoker alcohol intake: former year quit: 2022 details: Recently quit drinking alcohol 2-3 weeks ago. substance use type: does not use what type of physical activity do you participate in: walking frequency: daily colleen/samaritan: Episcopal seatbelt use: always ROS ROS Narrative Review of Systems: Constitutional: Patient denies fever, chills or weight loss. Eyes: Patient admits to tunnel vision prior to blacking out. ENT: Patient denies runny nose, sore throat or ear pain. Resp: Patient denies shortness of breath or cough. CV: Patient admits to syncopal event but she denies chest pain, palpitations, heart racing or lower extremity edema. GI: Patient admits to pressure-like lower abdominal pain just prior to expressing melanotic stool with nausea. She denies vomiting or constipation. : Patient denies dysuria, hematuria urinary frequency. MSK: Patient denies arthralgias or myalgias. 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 Psych: Patient denies symptoms of uncontrolled depression or anxiety. Neuro: Patient denies headache, paresthesias or focal neurologic deficits. Allergy: Patient denies lip swelling, tongue swelling or urticaria. Hematology: Patient admits to melanotic stools as per HPI. Endocrinology: Patient denies polyuria, polydipsia, polyphagia or heat/cold intolerance. 14 point ROS otherwise negative save for positives noted above in HPI. Vital Signs Vital Signs Vital Signs: 10/25/24 20:13 10/25/24 20:16 10/25/24 20:24 Temperature 96.9 F L Temperature Source Temporal Pulse Rate 72 66 Pulse Rate [Lying] Pulse Rate [Sitting (for 1 minute prior to obtaining)] Pulse Rate [Standing (for 1 minute prior to obtaining)] Respiratory Rate 18 16 Respiratory Pattern Normal Blood Pressure 136/60 H Blood Pressure [Lying] Blood Pressure [Sitting (for 1 minute prior to obtaining)] Blood Pressure [Standing (for 1 minute prior to obtaining)] Blood Pressure Mean 85 Blood Pressure Mean [Lying] Blood Pressure Mean [Sitting (for 1 minute prior to obtaining)] Blood Pressure Mean [Standing (for 1 minute prior to obtaining)] Pulse Ox 100 100 Oxygen Delivery Method Room Air 10/25/24 20:30 10/25/24 20:36 10/25/24 20:36 Temperature Temperature Source Pulse Rate 68 65 Pulse Rate [Lying] 65 Pulse Rate [Sitting (for 1 minute prior to obtaining)] 66 Pulse Rate [Standing (for 1 minute prior to obtaining)] 74 Respiratory Rate 14 14 Respiratory Pattern Blood Pressure 135/55 H 119/56 L Blood Pressure [Lying] 120/54 L Blood Pressure [Sitting (for 1 minute prior to obtaining)] 119/56 L Blood Pressure [Standing (for 1 minute prior to obtaining)] 130/54 H Blood Pressure Mean 77 74 Blood Pressure Mean [Lying] 76 Blood Pressure Mean [Sitting (for 1 minute prior to obtaining)] 77 Blood Pressure Mean [Standing (for 1 minute prior to obtaining)] 79 Pulse Ox 100 100 Oxygen Delivery Method 10/25/24 20:37 10/25/24 20:38 10/25/24 20:45 Temperature Temperature Source Pulse Rate 66 73 69 Pulse Rate [Lying] Pulse Rate [Sitting (for 1 minute prior to obtaining)] Pulse Rate [Standing (for 1 minute prior to obtaining)] Respiratory Rate 15 20 H 14 Respiratory Pattern Blood Pressure 120/54 L 130/54 H 134/61 H Blood Pressure [Lying] Blood Pressure [Sitting (for 1 minute prior to obtaining)] Blood Pressure [Standing (for 1 minute prior to obtaining)] Blood Pressure Mean 73 76 78 Blood Pressure Mean [Lying] Blood Pressure Mean [Sitting (for 1 minute prior to obtaining)] Blood Pressure Mean [Standing (for 1 minute prior to obtaining)] Pulse Ox 100 98 100 Oxygen Delivery Method 10/25/24 21:00 10/25/24 21:15 10/25/24 21:30 Temperature Temperature Source Pulse Rate 68 73 73 Pulse Rate [Lying] Pulse Rate [Sitting (for 1 minute prior to obtaining)] Pulse Rate [Standing (for 1 minute prior to obtaining)] Respiratory Rate 14 12 12 Respiratory Pattern Blood Pressure 127/53 H 128/60 H 140/59 H Blood Pressure [Lying] Blood Pressure [Sitting (for 1 minute prior to obtaining)] Blood Pressure [Standing (for 1 minute prior to obtaining)] Blood Pressure Mean 74 79 82 Blood Pressure Mean [Lying] Blood Pressure Mean [Sitting (for 1 minute prior to obtaining)] Blood Pressure Mean [Standing (for 1 minute prior to obtaining)] Pulse Ox 100 100 Oxygen Delivery Method 10/25/24 21:39 10/25/24 21:45 10/25/24 22:00 Temperature 97.9 F Temperature Source Pulse Rate 75 80 76 Pulse Rate [Lying] Pulse Rate [Sitting (for 1 minute prior to obtaining)] Pulse Rate [Standing (for 1 minute prior to obtaining)] Respiratory Rate 16 16 11 L Respiratory Pattern Blood Pressure 140/59 H 140/66 H 138/59 H Blood Pressure [Lying] Blood Pressure [Sitting (for 1 minute prior to obtaining)] Blood Pressure [Standing (for 1 minute prior to obtaining)] Blood Pressure Mean 86 88 81 Blood Pressure Mean [Lying] Blood Pressure Mean [Sitting (for 1 minute prior to obtaining)] Blood Pressure Mean [Standing (for 1 minute prior to obtaining)] Pulse Ox 100 100 Oxygen Delivery Method Weight Weight: 101 lb 13.657 oz Body Mass Index (BMI) 18.6 Physical Exam Const alert, oriented x3, no apparent distress, average body habitus and healthy appearing General Appearance: cooperative HEENT normocephalic, head/scalp atraumatic, hearing grossly normal bilaterally and moist oral mucous membranes Eyes PERRL, EOMs intact bilaterally and conjunctivae normal Neck no lymphadenopathy, supple and no JVD Resp normal respiratory effort, no retractions, no use of accessory muscles and clearto auscultation bilaterally Cardio regular rate and regular rhythm GI soft to palpation and non-tender GI Narrative: Mild abdominal distention with increased bowel sounds noted. Auscultation: hyperactive bowel sounds Extremity Extremity Narrative: Patient still has bandages in place from excision of her two SCC lesions. Skin Skin Narrative: Patient has pallor but no evidence of rash, abscess, wounds or jaundice. Neuro oriented x3, CN's II-XII intact bilaterally, moves all extremities and no focal motor deficits Sensorium / Orientation: awake, alert, oriented to person, oriented to place andoriented to time Speech: speech normal Psych affect normal Results Medical Records Data Attestation: I reviewed the patient's medical records Lab / Micro Data Attestation: I reviewed the patient's lab results. 10/25/24 20:15 10/25/24 20:15 Labs: Laboratory Results - last 24 hr 10/25/24 20:15: WBC 5.6, RBC 2.99 L, Hgb 9.7 L, Hct 28.4 L, MCV 95.0, MCH 32.4 H, MCHC 34.2, RDW Std Deviation 42.0, RDW Coeff of Bruna 12.1, Plt Count 144 L, MPV10.4, PT 14.4, INR 1.1, APTT 25.3, Sodium 126 L, Potassium 4.1, Chloride 89 L, Carbon Dioxide 26.5, Anion Gap 11, BUN 34 H, Creatinine 0.48 L, Estim Creat Clear Calc 40.22 L, Est GFR (MDRD) Non-Af 95, BUN/Creatinine Ratio 71.4 H, Glucose 141 H, Calcium 8.3 Micro: Microbiology 10/25/24 20:49 Stool Stool Occult Blood ([facility]OIL[facility]) - Final Occult Blood Positive Assessment & Plan Assessment/Plan (1) Upper GI bleed: (2) Melena: (3) Thrombocytopenia: (4) Iron deficiency anemia: (5) Adverse drug reaction: (6) Syncope and collapse: (7) Orthostatic hypotension: (8) Hyponatremia: PLAN: Plan 1. UGIB with Melanotic Stool suspected to be due to PUD with mild Thrombocytopenia of 144K with hemoglobin of 9.7 g/dL present on admission in thesetting of known chronic THOM with associated Nausea and pressure-like Abdominal Pain - Admit to PCU. Keep strict NPO. Start continuous pantoprazole IV infusion. Type & Screen blood and transfuse for hemoglobin less than 7 g/dL. Give ondansetron IV as needed for nausea vomiting. Give promethazine IM as needed for breakthrough nausea. Give morphine IV for severe (level 6-10/10) pain. Finally, we will consult gastroenterology to see this patient on rounds in the a.m. for further recommendations regarding EGD this admission with help appreciated in advance. 2. Adverse Drug Reaction to unopposed daily BASA likely causing #1 - Hold BASA and avoid other potential GI toxic agents until further notice. 3. Syncopal event suspected to be due to #1 & #2 in the setting of previously known Orthostatic Hypotension - Check echocardiogram to evaluate LVEF. Check carotid Doppler to evaluate for stenosis. Serialize troponin. 4. Hyponatremia of 126 mmol/L present on admission complicating #1 - #3 in the setting of mild chronic hyponatremia with baseline levels from 130 mmol/L-135 mmol/L since 2022 - Give NS IVF and recheck level in AM to confirm improvement. Check urine and serum osmolality. 5. Recently diagnosed squamous cell carcinoma; s/p Mohs surgery for excision 2 lesions on her Left calf earlier today adding to the medical complexity of #1 - #4 - Noted. 6. History of ischemic CVA on baby aspirin daily - Patient will be instructed to avoid aspirin and NSAIDs as outlined in #2. 7. History of EtOH abuse; with patient claiming having quit drinking in 2022 - Patient may also have esophageal varices as a potential source of her bleeding with EGD pending for #1 8. Hyperlipidemia; on rosuvastatin - Hold statin until patient is cleared for oral intake by gastroenterology. 9. Hypothyroidism; on levothyroxine - Restart levothyroxine when patient is cleared for oral intake. Check TSH. 10. Former tobacco abuse - Noted. 11. Epilepsy; on gabapentin TID - Hold oral gabapentin at this time due to #1. Give lorazepam IV as needed for breakthrough seizure activity. If patient is requiring extended period of being n.p.o. we will start IV levetiracetam. 12. Depression with anxiety; on buspirone 3 times daily - Restart this agent when patient is cleared for oral intake. 13. History of hysterectomy - Noted with a second completeness. 14. OA; with chronic debility - Noted. PT/OT and Case Management to consult and treat on rounds in the a.m. further recommendations with help appreciated inadvance. 15. DVT prophylaxis - SCD's only in light of #1. Total time: Approximately (but not less than) 75 minutes. Charges/Coding Visit Charges Inpatient E&M: 95019 Init Hosp L3 10/26/24 0608 <Electronically signed by Pastor Hernandez DO> Cosigner Signature (if applicable): CC: Dr. Jamal Johns MD; Dr. Pastor Hernandez DO~ Signed [facility] Work Phone: 1(204) 547-976105-23-2025 History and physical note [facility] Medical Records Department [address] [place] [address] H&P Exam - Hospitalist 10/25/24 3324 MR#: [id number] Acct: [id number] Name: NURSE,RADHA OBRIEN Rep #:[id number] : 1945 79 From: Pastor Garcia DO PCP: Dr. Jamal Johns MD Status:ADM IN Location: [place] [address] HPI - General General Date of Admission: 10/25/24 Date of Service: 10/25/24 Chief Complaint: Syncope and Abdominal Pain with subsequent Melanotic Stool. HPI Narrative RADHA NURSE, is a 79 F with a past medical history of hyperlipidemia; on rosuvastatin, hypothyroidism; on levothyroxine, former tobacco abuse, history ofischemic CVA on baby aspirin daily, epilepsy;on gabapentin TID, orthostatic hypotension, depression with anxiety; on buspirone 3 times daily, history of hyponatremia, history of THOM, history of EtOH abuse; with patient claiming having quit drinking in 2022, history of hysterectomy, OA; with chronic debilityand recently diagnosed squamous cellcarcinoma; s/p Mohs surgery for excision 2 lesions on her Left calf earlier today who presents to [facility] ER complaining of syncope and abdominal pain with subsequent melanotic stool. Mrs. Abad reports her symptoms began just prior to arrival after she had a syncopal episode while eating at [employer]. She states her symptoms came on suddenly and she was witnessed to have completely passed out. She also admits to painful pressure sensation in her lower abdomen like she has to have a bowel movement with nausea and subsequent melanotic stool with patient's noting her to be pale and diaphoretic. She admits to a history of iron deficiency anemia but she denies a history of peptic ulcer disease, coronary artery disease or similar previous episodes. She also admits to hervision tunneling before she blacked out but she denies associated fever, chills, weightloss, runny nose, sore throat, ear pain, chest pain, palpitations, heart racing,lower extremity edema, shortnessof breath, cough, dysuria, hematuria, urinary frequency, arthralgias, myalgias, headache or rash. In the ER she was diagnosedwith UGIB suspected to be due to PUD likely due to Adverse Drug Reaction to unopposed daily BASA complicated by mild Thrombocytopenia of 144K with hemoglobin of 9.7 g/dL present on admission compounded by Hyponatremia of 126 mmol/L present on admission and she was then admitted to the PCU for ongoing care for stay that is expected to extend beyond 2 midnights. FORMERLY [facility], [facility] Medical History Fatigue Acute ischemic stroke Epilepsy Alcohol abuse Anxiety Home Medications ?Medication ?Instructions ?Recorded ?Last Taken ?Type aspirin 81 mg chewable tablet 81 mg PO BREAKFAST [facility] 08/23/22 Unknown History levothyroxine 50 mcg tablet 50 mcg PO DAILY@0600 30 da ys #30 08/26/22 Unknown Rx tabs rosuvastatin 5 mg tablet 5 mg PO DAILY #90 tabs 01/18 Unknown Rx buspirone 15 mg tablet 15 mg PO TID 10/25/24 Unknow n History gabapentin 300 mg capsule 300 mg PO TID 10/25/24 Unkno wn History Allergy/AdvReac Type Severity Reaction Status Date / Time Milk Containing Products Allergy Diarrhea Verified 10/25/24 20:17 (Dairy) (Milk Containing Products) Surgical History Hx of hysterectomy Social History household members: spouse Smoking Status: Former smoker alcohol intake: former year quit: 2022 details: Recently quit drinking alcohol 2-3 weeks ago. substance use type: does not use what type of physical activity do you participate in: walking frequency: daily colleen/samaritan: Episcopal seatbelt use: always ROS ROS Narrative Review of Systems: Constitutional: Patient denies fever, chills or weight loss. Eyes: Patient admits to tunnel vision prior to blacking out. ENT: Patient denies runny nose, sore throat or ear pain. Resp: Patient denies shortness of breath or cough. CV: Patient admits to syncopal event but she denies chest pain, palpitations, heart racing or lowerextremity edema. GI: Patient admits to pressure-like lower abdominal pain just prior to expressing melanotic stool with nausea. She denies vomiting or constipation. : Patient denies dysuria, hematuria urinary frequency. MSK: Patient denies arthralgias or myalgias. 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 Psych: Patient denies symptoms of uncontrolled depression or anxiety. Neuro: Patient denies headache, paresthesias or focal neurologic deficits. Allergy: Patient denies lip swelling, tongue swelling or urticaria. Hematology: Patient admits to melanotic stools as per HPI. Endocrinology: Patient denies polyuria, polydipsia, polyphagia or heat/cold intolerance. 14 point ROS otherwise negative save for positives noted above in HPI. Vital Signs Vital Signs Vital Signs: 10/25/24 20:13 10/25/24 20:16 10/25/24 20:24 Temperature 96.9 F L Temperature Source Temporal Pulse Rate 72 66 Pulse Rate [Lying] Pulse Rate [Sitting (for 1 minute prior to obtaining)] Pulse Rate [Standing (for 1 minute prior to obtaining)] Respiratory Rate 18 16 Respiratory Pattern Normal Blood Pressure 136/60 H Blood Pressure [Lying] Blood Pressure [Sitting (for 1 minute prior to obtaining)] Blood Pressure [Standing (for 1 minute prior to obtaining)] Blood Pressure Mean 85 Blood Pressure Mean [Lying] Blood Pressure Mean [Sitting (for 1 minute prior to obtaining)] Blood Pressure Mean [Standing (for 1 minute prior to obtaining)] Pulse Ox 100 100 Oxygen Delivery Method Room Air 10/25/24 20:30 10/25/24 20:36 10/25/24 20:36 Temperature Temperature Source Pulse Rate 68 65 Pulse Rate [Lying] 65 Pulse Rate [Sitting (for 1 minute prior to obtaining)] 66 Pulse Rate [Standing (for 1 minute prior to obtaining)] 74 Respiratory Rate 14 14 Respiratory Pattern Blood Pressure 135/55 H 119/56 L Blood Pressure [Lying] 120/54 L Blood Pressure [Sitting (for 1 minute prior to obtaining)] 119/56 L Blood Pressure [Standing (for 1 minute prior to obtaining)] 130/54 H Blood Pressure Mean 77 74 Blood Pressure Mean [Lying] 76 Blood Pressure Mean [Sitting (for 1 minute prior to obtaining)] 77 Blood Pressure Mean [Standing (for 1 minute prior to obtaining)] 79 Pulse Ox 100 100 Oxygen Delivery Method 10/25/24 20:37 10/25/24 20:38 10/25/24 20:45 Temperature Temperature Source Pulse Rate 66 73 69 Pulse Rate [Lying] Pulse Rate [Sitting (for 1 minute prior to obtaining)] Pulse Rate [Standing (for 1 minute prior to obtaining)] Respiratory Rate 15 20 H 14 Respiratory Pattern Blood Pressure 120/54 L 130/54 H 134/61 H Blood Pressure [Lying] Blood Pressure [Sitting (for 1 minute prior to obtaining)] Blood Pressure [Standing (for 1 minute prior to obtaining)] Blood Pressure Mean 73 76 78 Blood Pressure Mean [Lying] Blood Pressure Mean [Sitting (for 1 minute prior to obtaining)] Blood Pressure Mean [Standing (for 1 minute prior to obtaining)] Pulse Ox 100 98 100 Oxygen Delivery Method 10/25/24 21:00 10/25/24 21:15 10/25/24 21:30 Temperature Temperature Source Pulse Rate 68 73 73 Pulse Rate [Lying] Pulse Rate [Sitting (for 1 minute prior to obtaining)] Pulse Rate [Standing (for 1 minute prior to obtaining)] Respiratory Rate 14 12 12 Respiratory Pattern Blood Pressure 127/53 H 128/60 H 140/59 H Blood Pressure [Lying] Blood Pressure [Sitting (for 1 minute prior to obtaining)] Blood Pressure [Standing (for 1 minute prior to obtaining)] Blood Pressure Mean 74 79 82 Blood Pressure Mean [Lying] Blood Pressure Mean [Sitting (for 1 minute prior to obtaining)] Blood Pressure Mean [Standing (for 1 minute prior to obtaining)] Pulse Ox 100 100 Oxygen Delivery Method 10/25/24 21:39 10/25/24 21:45 10/25/24 22:00 Temperature 97.9 F Temperature Source Pulse Rate 75 80 76 Pulse Rate [Lying] Pulse Rate [Sitting (for 1 minute prior to obtaining)] Pulse Rate [Standing (for 1 minute prior to obtaining)] Respiratory Rate 16 16 11 L Respiratory Pattern Blood Pressure 140/59 H 140/66 H 138/59 H Blood Pressure [Lying] Blood Pressure [Sitting (for 1 minute prior to obtaining)] Blood Pressure [Standing (for 1 minute prior to obtaining)] Blood Pressure Mean 86 88 81 Blood Pressure Mean [Lying] Blood Pressure Mean [Sitting (for 1 minute prior to obtaining)] Blood Pressure Mean [Standing (for 1 minute prior to obtaining)] Pulse Ox 100 100 Oxygen Delivery Method Weight Weight: 101 lb 13.657 oz Body Mass Index (BMI) 18.6 Physical Exam Const alert, oriented x3, no apparent distress, average body habitus and healthy appearing General Appearance: cooperative HEENT normocephalic, head/scalp atraumatic, hearing grossly normal bilaterally and moist oral mucous membranes Eyes PERRL, EOMs intact bilaterally and conjunctivae normal Neck no lymphadenopathy, supple and no JVD Resp normal respiratory effort, no retractions, no use of accessory muscles and clearto auscultation bilaterally Cardio regular rate and regular rhythm GI soft to palpation and non-tender GI Narrative: Mild abdominal distention with increased bowel sounds noted. Auscultation: hyperactive bowel sounds Extremity Extremity Narrative: Patient still has bandages in place from excision of her two SCC lesions. Skin Skin Narrative: Patient has pallor but no evidence of rash, abscess, wounds or jaundice. Neuro oriented x3, CN's II-XII intact bilaterally, moves all extremities and no focal motor deficits Sensorium / Orientation: awake, alert, oriented to person, oriented to place andoriented to time Speech: speech normal Psych affect normal Results Medical Records Data Attestation: I reviewed the patient's medical records Lab / Micro Data Attestation: I reviewed the patient's lab results. 10/25/24 20:15 10/25/24 20:15 Labs: Laboratory Results - last 24 hr 10/25/24 20:15: WBC 5.6, RBC 2.99 L, Hgb 9.7 L, Hct 28.4 L, MCV 95.0, MCH 32.4 H, MCHC 34.2, RDW Std Deviation 42.0, RDW Coeff of Bruna 12.1, Plt Count 144 L, MPV10.4, PT 14.4, INR 1.1, APTT 25.3, Sodium 126 L, Potassium 4.1, Chloride 89 L, Carbon Dioxide 26.5, Anion Gap 11, BUN 34 H, Creatinine 0.48L, Estim Creat Clear Calc 40.22 L, Est GFR (MDRD) Non-Af 95, BUN/Creatinine Ratio 71.4 H, Glucose 141 H, Calcium 8.3 Micro: Microbiology 10/25/24 20:49 Stool Stool Occult Blood (FROILAN) - Final Occult Blood Positive Assessment & Plan Assessment/Plan (1) Upper GI bleed: (2) Melena: (3) Thrombocytopenia: (4) Iron deficiency anemia: (5) Adverse drug reaction: (6) Syncope and collapse: (7) Orthostatic hypotension: (8) Hyponatremia: PLAN: Plan 1. UGIB with Melanotic Stool suspected to be due to PUD with mild Thrombocytopenia of 144K with hemoglobin of 9.7 g/dL present on admission in thesetting of known chronic THOM with associated Nausea and pressure-like Abdominal Pain - Admit to PCU. Keep strict NPO. Start continuous pantoprazole IV infusion. Type & Screen blood and transfuse for hemoglobin less than 7 g/dL. Give ondansetron IV as needed for nausea vomiting. Give promethazine IM as needed for breakthrough nausea. Give morphine IV for severe (level 6-10/10) pain. Finally, we will consult gastroenterology to see this patient onrounds in the a.m. for further recommendations regarding EGD this admission with help appreciated in advance. 2. Adverse Drug Reaction to unopposed daily BASA likely causing #1 - Hold BASA and avoid other potential GI toxic agents until further notice. 3. Syncopal event suspected to be due to #1 & #2 in the setting of previously known OrthostaticHypotension - Check echocardiogram to evaluate LVEF. Check carotid Doppler to evaluate for stenosis. Serialize troponin. 4. Hyponatremia of 126 mmol/L present on admission complicating #1 - #3 in the setting of mild chronic hyponatremia with baseline levels from 130 mmol/L-135 mmol/L since 2022 - Give NS IVF and recheck level in AM to confirm improvement. Check urine and serum osmolality. 5. Recently diagnosed squamous cell carcinoma; s/p Mohs surgery for excision 2 lesions on her Left calf earlier today adding to the medical complexity of #1 - #4 - Noted. 6. History of ischemic CVA on baby aspirin daily - Patient will be instructed to avoid aspirin and NSAIDs as outlined in #2. 7. History of EtOH abuse; with patient claiming having quit drinking in 2022 - Patient may also have esophageal varices as a potential source of her bleeding with EGD pending for #1 8. Hyperlipidemia; on rosuvastatin - Hold statin until patient is cleared for oral intake by gastroenterology. 9. Hypothyroidism; on levothyroxine - Restart levothyroxine when patient is cleared for oral intake. Check TSH. 10. Former tobacco abuse - Noted. 11. Epilepsy; on gabapentin TID - Hold oral gabapentin at this time due to #1. Give lorazepam IV asneeded for breakthrough seizure activity. If patient is requiring extended period of being n.p.o. we will start IV levetiracetam. 12. Depression with anxiety; on buspirone 3 times daily - Restart this agent when patient is cleared for oral intake. 13. History of hysterectomy - Noted with a second completeness. 14. OA; with chronic debility - Noted. PT/OT and Case Management to consult and treat on rounds in the a.m. further recommendations with help appreciated inadvance. 15. DVT prophylaxis - SCD's only in light of #1. Total time: Approximately (but not less than) 75 minutes. Charges/Coding Visit Charges Inpatient E&M: 64293 Init Hosp L3 10/26/24 0608 Cosigner Signature (if applicable): CC: Dr. Jamal Johns MD; Dr. Pastor Hernandez DO~ Signed [facility]05-23-2025 Evaluation note* Diagnosis Onset Date Resolution Status Admit Date Acute anemia acute October 25 11:20pm Acute gastrointestinal bleeding acut e October 25, 2024 11:20pm Adverse drug reaction acute October 25, 2024 11:20pm Hypokalemia acute October 25 11:20pm Hyponatremia acute October 25 11:20pm Iron deficiency anemia acute Ma y 2024 11:20pm Melena acute October 25, 2024 11:20pm Orthostatic hypotension acute M ay 2024 11:20pm Peptic ulcer disease acute October 25, 2024 11:20pm Syncope and collapse acute October 25, 2024 11:20pm Thrombocytopenia acute October 11:20pm Upper GI bleed acute October 25, 2024 11:20pm [facility] Work Phone: 1(465) 757-354903-26-2023 Hospital Discharge instructions Additional Instructions [facility]charge home [facility] 08/29/2022, [facility] Phone: 1(483) 242-573103-23-[address] Hooks [facility] August 26, 2022 7:57pm Note Date/Time August 26, 2022 7:5 3pm [facility] Medical Records Department [address] [place] [address] Discharge Summary 08/26/221948 MR#: [id number] Acct: [id number] Name: NURSE,RADHA OBRIEN Rep #:[id number] : 1945 76 From: Jos Hooks MD PCP: Chata Barton DO Status:ADM I N Location: [facility] [place] [address] Providers Date of Admission: 08/23/22 Primary Care Physician: Chata Barton DO Reason For Visit: CVA Diagnosis Discharge Diagnosis (1) Debility: Status: Acute Code(s): R53.81 - Other malaise (2) Encephalopathy acute: Status: Acute Code(s): G93.40 - Encephalopathy, unspecified (3) Stroke: Status: Acute Code(s): I63.9 - Cerebral infarction, unspecified (4) Hyponatremia: Status: Acute Code(s): E87.1 - Hypo-osmolality and hyponatremia (5) Seizure disorder: Status: Acute Code(s): G40.909 - Epilepsy, unspecified, not intractable, without status epilepticus (6) Subclinical hypothyroidism: Status: Acute Code(s): E03.8 - Other specified hypothyroidism (7) Alcohol abuse: Status: Acute Code(s): F10.10 - Alcohol abuse, uncomplicated (8) Anxiety: Status: Acute Code(s): F41.9 - Anxiety disorder, unspecified Plan 76 year old female with below past medical history hospitalized for stroke, complicated by agitated encephalopathy, alcohol withdrawal, seizure disorder, hyponatremia, admitted to TCU with debility, here for rehabilitation, strengthening, prior to discharge home with . * Debility - PT/OT/ST. * Pain - Tylenol 1000mg q6h prn pain (1-10). * Bowel - senna/colace 1 tablet bid, Dulcolax 10mg po daily prn. * Adult immunization - Administer pneumonia vaccine, covid19 vaccine, flu vaccine. * DVT prophylaxis - Hold, monitor. * Stroke - Aspirin 81mg daily. * Hyperlipidemia - Atorvastatin 40mg qhs. * Seizure disorder - Keppra 500mg bid. * Hypothyroidism - Levothyroxine 50mcg daily. * Nutrition - MVI daily. Medications at Discharge Home Medications aspirin 81 mg chewable tablet 81 mg PO BREAKFAST [facility] 08/23/22 acetaminophen 500 mg tablet 1,000 mg PO Q6H PRN PRN Pain Score 1-10 #0 tabs 08/26/22 atorvastatin 40 mg tablet 40 mg PO QHS 30 days #30 tabs 08/26/22 levetiracetam 500 mg tablet 500 mg PO BID 30 days #60 tabs 08/26/22 levothyroxine 50 mcg tablet 50 mcg PO DAILY@0600 30 days #30 tabs 08/26/22 Hospital Course Operations None Procedures None Summary of Care Provided Minutes Spent on Discharge: 35 Hospital Course: 76 year old female with below past medical history hospitalized for stroke, complicated by agitated encephalopathy, alcohol withdrawal, seizure disorder, hyponatremia, admitted to TCU with debility, here for rehabilitation, strengthening, prior to discharge home with . Discharge home with 08/29/2022, [facility]. Physical Exam Const alert General Appearance: cooperative HEENT normocephalic Eyes PERRL and EOMs intact bilaterally Neck supple, no JVD and no carotid bruits Resp normal respiratory effort, normal air movement and clear to auscultation bilaterally Cardio regular rate and regular rhythm GI normal to inspection, nondistended, normoactive bowel sounds, non-tender and non-distended Extremity normal capillary refill General Extremity: Negative for edema Skin no rashes or lesions noted General Skin Exam: no breakdown Psych affect normal Appearance: appropriate Medical Records Data Medical Nutrition Assessment Dietitian: Malnutrition Criteria Met Start: 08/24/22 14:53 Freq: Status: Active Protocol: Document 08/24/22 14:53 AG (Rec: 08/24/22 14:53 AG [id number]) Nutrition Malnutrition Evidence of Malnutrition Exists Yes Malnutrition (severe): Acute Illness/Injury Evidenced By Suboptimal Energy Intake ( Severe),Weight Loss (Severe), Physical Changes (Severe) Clinical Problem Acute Disease or Injury Related Malnutrition Etiology severe, acute on likely chronic malnutrition related to inadequate energy intake Signs/Symptoms as evidenced by unintentional wt loss of 2.4#/3% x 3-4 weeks ; severe muscle wasting/fat loss evident in orbital, clavicle, acromion, and temporal areas per physical exam; estimated PO intake meeting <50% of estimated energy needs > 5 days; BMI 16. 3 Status Active Problem Recommendation Dietitian Recommendations/Changes continue regular diet as tolerated- texture/consistency modifications per [employer]CT PROFESSOR; Nikolas w/ meals for additional nutrition if consumed Weight / BMI Weight Weight: 40.54 kg Body Mass Index (BMI) 16.3 ABG / Lab / Microbiology Data Result Diagrams: 08/25/22 08:48 08/25/22 08:48 Microbiology: Microbiology 08/25/22 05:30 Nasal Secretion SARS-CoV-2 Antigen (Rapid) - Final D/C Instructions Discharge Diet: No restrictions Discharge Activity: Return to Normal Activity and May Shower May resume sexual activity in: No Restrictions Weight Bearing Status: Weight bearing as tolerated Call your doctor if you observe: Fever of 101 or Higher, Inability to urinate, Inability to have a bowel movement, Shortness of breath, Dizziness, Fainting spells, Swelling in the ankles, Chest pain and Uncontrolled pain Additional Instructions: Discharge home with 08/29/2022, [email or web address] Please Follow Up With: Geovany Mcneal MD When: 4 weeks. Meaningful Use Info Meaningful Use Diagnoses (Choose all that apply): Ischemic CVA CVA Therapy Assessed for PT,OT and/or ST?: Yes Ischemic Stroke Antithrombotic order at d/c?: Yes Dx of Atrial fib/flutter?: No Statins at discharge?: Yes Primary Dx Acute Ischemic CVA?: Yes IV thrombolytic ordered during stay?: No Reason IV thrombolytic not ordered: Treatment not Indicated Discharge Plan Admission Admit Date/Time: 08/23/22 14:11 Primary Reason for Your Visit: Debility. Attending Provider: Jos Hooks Chi Primary Care Provider: Chata Barton Instructions Additional Instructions / Restrictions: Discharge home with 08/29/2022, [email or web address] Discharge Orders/Prescriptions Prescriptions: New atorvastatin 40 mg Tablet 40 mg PO QHS 30 Days Qty: 30 0RF levetiracetam 500 mg Tablet 500 mg PO BID 30 Days Qty: 60 0RF acetaminophen 500 mg Tablet 1,000 mg PO Q6H PRN PRN (Reason: Pain Score 1-10) Qty: 0 0RF levothyroxine 50 mcg Tablet 50 mcg PO DAILY@0600 30 Days Qty: 30 0RF Continued aspirin 81 mg tablet,chewable 81 mg PO BREAKFAST Discontinued lorazepam [Ativan] 0.5 mg Tablet 0.5 mg PO QHS PRN (Reason: Anxiety) multivitamin 1 tablet PO/SL DAILY atorvastatin 40 mg tablet 40 mg PO QHS levothyroxine 50 mcg tablet 50 mcg PO DAILY@0600 levetiracetam [Keppra] 500 mg tablet 500 mg PO BID Referrals / Follow Up: Chata Barton DO [Primary Care Provider] - 08/31/22 10:50 am Disposition Disposition (needs filled in before D/C Order can be placed): Home, Self Care 08/26/221956 <Electronically signed by Jos Hooks MD> Cosigner Signature (if applicable): CC: Dr. Jos Hooks MD; Chata Barton DO~ Signed [facility] Work Phone: 1(481) 194-608703-21-[address] Hooks [facility] August 24, 2022 4:10pm Note Date/Time August 24, 2022 2:3 9pm [facility] Medical Records Department [address] [place] [id number] Progress Note - Pharmacy 08/24/22 1425 MR#: [id number] Acct: [id number] Name: NURSE,RADHA SOUZANE Rep #:[id number] : 1945 76 From: Beverly Ramírez PCP: Chata Barton DO Status:ADM I N Location: [facility] [place] [address] TCU RX Drug Regimen Review Subjective: TCU Admission. 76 YOF presented to the ER with stroke alert. Hospitalized for stroke, complicated by agitated encephalopathy, alcohol withdrawal, seizure disorder, hyponatremia. Admitted to TCU with debility for strengthening and rehabilitation. Objective: Allergies Milk Containing Products Allergy (Verified 08/19/22 11:06) Diarrhea Current Medications Generic Name Dose Route Start Last Admin Trade Name Freq PRN Reason Stop Dose Admin Acetaminophen 1,000 mg 08/23/22 18:58 Acetaminophen 500 Mg Tablet PO Q6H PRN PRN Pain Score 1-10 Aspirin 81 mg 08/24/22 08:00 08/24/22 08:41 Aspirin 81 Mg Tab.Chew PO 81 mg BREAKFAST ROXANNE Administration Atorvastatin Calcium 40 mg 08/23/22 22:00 08/23/22 20:56 Atorvastatin Calcium 40 Mg Tablet PO 40 mg QHS ROXANNE Administration Bisacodyl 10 mg 08/23/22 14:35 Bisacodyl 5 Mg Tablet PO DAILY PRN Constipation Levetiracetam 500 mg 08/23/22 18:00 08/24/22 05:25 Levetiracetam 500 Mg Tablet PO 500 mg BID ROXANNE Administration Levothyroxine Sodium 50 mcg 08/24/22 06:00 08/24/22 05:25 Levothyroxine 50 Mcg Tablet PO 50 mcg DAILY@0600 ROXANNE Administration Multivitamins 1 tablet 08/24/22 08:00 08/24/22 11:46 Multivitamins,Therapeutic Tablet PO 1 tablet BREAKFAST ROXANNE Administration Senna/Docusate Sodium 1 tablet 08/24/22 06:00 08/24/22 05:21 Senna/Docusate Sodium 1 Tablet PO Not Given BID [facility] Sodium Chloride 10 - 40 ml 08/23/22 14:53 0.9% Saline Lock 10 Ml Syringe IV UD PRN SALINE FLUSH Tuberculin PPD 0.1 ml 08/31/22 10:00 Tuberculin,Purif.Prot.Deriv. 50 Tu/Ml Vial ID 08/31/22 10:01 X1 ONE Problem List (Last Reviewed 08/23/22 @ 18:[address] Jos Hooks MD) Anxiety (Acute) Alcohol abuse (Acute) Subclinical hypothyroidism (Acute) Seizure disorder (Acute) Hyponatremia (Acute) Stroke (Acute) Debility (Acute) Encephalopathy acute (Acute) Vital Signs Temp Pulse Resp BP Pulse Ox O2 Del Method 97.3 F L 89 20 H 101/52 L 98 Room Air 08/23/22 14:21 08/23/22 14:21 08/23/22 14:21 08/23/22 14:21 08/24/22 07:00 08/24/22 09:41 Oxygen Delivery Method Room Air Weight: 40.54 kg Body Mass Index (BMI) 16.3 Assessment/Plan: 1. Pain: acetaminophen 1000mg PO Q6H PRN pain 1-10. No PRN doses. Please continue to monitor for increased pain and PRN usage. 2. Bowel: senna/docusate 1T PO BID and bisacodyl 10mg PO daily PRN constipation.No PRN doses have been given. Please continue to monitor for constipation (last documented bowel movement was 08/22/22) and PRN usage. 3. Stroke: aspirin 81mg PO daily. Please continue to monitor for S/S of bleedingand hemoglobin (last 11.7g/dL). 4. Hyperlipidemia: atorvastatin 40mg PO QHS. Please continue to monitor lipid panel (last 08/17/22), LFTs (last 08/17/22) and muscle pain. 5. Seizure disorder: levetiracetam 500mg PO BID. Please continue to monitor for drowsiness, fatigue, falls/fractures (BEERs criteria), renal function (BEERs criteria, dose appropriate for current CrCl of 49 ml/min). 6. Hypothyroidism: levothyroxine 50mcg PO daily. Please continue to monitor TSH (last 08/16/22) and S/S of hypo/hyperthyroidism. 7. Nutrition: multivitamin 1T PO daily. Please continue to monitor. Assessment/Plan for indications treated with psychotropic medications: None Medical chart and medication regimen reviewed. The following medication irregularities or issues were identified: None Date of Note:: 08/24/22 08/24/22 1439 <Electronically signed by Beverly Ramírez > Beverly Ramírez Cosigner Signature (if applicable): 08/24/22 1610 <Electronically signed by Jos Hooks MD> CC: ~ Signed [facility] Work Phone: 1(416) 806-162803-20-2023 History and physical note Author Dr. Hooks [facility] August 23, 2022 6:58pm Note Date/Time August 23, 2022 6:5 4pm [facility] Medical Records Department [address] [place] [address] History & Physical Exam 08/23/22 5764 MR#: [id number] Acct: [id number] Name: NURSERADHA Rep #:[id number] : 1945 76 From: Jos Hooks MD PCP: Chata Barton, DO Status:ADM I N Location: [facility] [place] [address] HPI - General General Date of Admission: 08/23/22 Date of Service: 08/23/22 Chief Complaint: Here for rehabilitation. HPI Narrative 08/16/2022 RADHA ABAD, is a 76 Female who presents to [facility] Emergency Department with stroke alert. Confusion, expressive aphasia, stool incontinence, Weakness of legs, difficulty standing. Only says thank you. NIHSS 3. WBC 4.0, Sodium 127, Troponin okay. INR okay, PTT okay, LFT okay, Ammonia okay. Urinalysis negative, Lactate 2.1, covid19 negative, influenza a/b negative. CT brain okay, CTA head/neck negative for large vessel occlusion. Chest X-ray okay. Stroke neurology recommended NO TPA. Given IV fluids, Ativan, thiamine, folate for possible Wernicke's encephalopathy. Patient quit drinking wine 3 weeks ago, she admits to 1.5 large glass of wineper night, she quit because she thought she was drinking too much. 08/16/2022 Admit to Hospital. MRI brain, Echo, aspirin, statin, PT/OT/ST for stroke. Risperdal, Ativan given for agitation. 08/16/2022 Echo EF 65%. Right ventricular systolic pressure 27mm HG. 08/17/2022 Agitated, sitter required. Start Risperidone for agitation. 08/18/2022 Not interactive, opens eyes to stimuli. Unable to tolerate MRI brain secondary to agitation. CT pelvis negative for fracture. 08/19/2022 More alert, interactive. MRI brain showed left temporal lobe stroke. EEG showed focal dampening right temporal lobe. Continue Keppra for seizure. Continue Thiamine for Wernicke's encephalopathy. 08/20/2022 Sitting up, feeding herself. 08/21/2022 Feeling better, waiting for placement. Synthroid 50mcg daily for subclinical hypothyroidism. 08/22/2022 No overnight events. Confusion secondary to stroke/alcohol withdrawal/seizure disorder. 08/23/2022 Admit to TCU with debility, here for rehabilitation, strengthening, prior to discharge home with . [facility] Medical History Alcohol abuse Anxiety Home Medications lorazepam 0.5 mg tablet (Ativan) 0.5 mg PO QHS PRN Anxiety 08/16/22 [History Last Taken Unknown] multivitamin 1 tablet PO/SL DAILY supplement 08/16/22 [History Last Taken Unknown] aspirin 81 mg chewable tablet 81 mg PO BREAKFAST heart health 08/23/22 [History Last Taken Unknown] atorvastatin 40 mg tablet 40 mg PO QHS cholesterol 08/23/22 [History Last Taken Unknown] levetiracetam 500 mg tablet (Keppra) 500 mg PO BID seizures 08/23/22 [History Last Taken Unknown] levothyroxine 50 mcg tablet 50 mcg PO DAILY@0600 thyroid 08/23/22 [History Last Taken Unknown] Allergy/AdvReac Type Severity Reaction Status Date / Time Milk Containing Products Allergy Diarrhea Verified 08/19/22 11:06 Surgical History Hx of hysterectomy Social History (Updated 08/23/22 @ 18:[address] Jos Hooks MD) household members: spouse Smoking Status: Former smoker alcohol intake: former year quit: 2022 details: Recently quit drinking alcohol 2-3 weeks ago. ROS Constitutional Constitutional: Denies chills, fever(s) or weight gain ENT HEENT: Denies headache(s), nasal congestion or nasal discharge Cardiovascular Cardiovascular: Denies chest pain or palpitations Respiratory/Chest Respiratory/Chest: Denies cough, excessive phlegm production or shortness of breath with exertion Gastrointestinal Gastrointestinal: Denies abdominal pain, nausea or vomiting Genitourinary Genitourinary: Denies dysuria Musculoskeletal Musculoskeletal: Denies joint pain or joint swelling Integumentary Integumentary: Denies rash or wounds Neurologic Neurologic: Denies focal weakness, numbness or tingling Psychiatric Psychiatric: Denies anxiety, auditory hallucinations, depression, homicidal ideation or suicidal ideation Vital Signs Vital Signs Vital Signs: 08/23/22 14:21 08/23/22 14:21 Temperature 97.3 F L Temperature Source Oral Pulse Rate 89 89 Pulse Rhythm Regular Pulse Strength Normal (2+) Respiratory Rate 20 H 20 H Respiratory Effort Normal Non-Labored Respiratory Depth Normal Respiratory Pattern Normal Blood Pressure 101/52 L Blood Pressure Mean 68 Blood Pressure Source Manual Blood Pressure Position Sitting Blood Pressure Location Right Arm Pulse Ox 99 99 Oxygen Delivery Method Room Air Room Air Weight Weight: 40.642 kg Body Mass Index (BMI) 16.4 Physical Exam Const alert General Appearance: cooperative HEENT normocephalic Eyes PERRL and EOMs intact bilaterally Neck supple, no JVD and no carotid bruits Resp normal respiratory effort, normal air movement and clear to auscultation bilaterally Cardio regular rate and regular rhythm GI normal to inspection, nondistended, normoactive bowel sounds, non-tender and non-distended Extremity normal capillary refill General Extremity: Negative for edema Skin no rashes or lesions noted General Skin Exam: no breakdown Psych affect normal Appearance: appropriate Assessment & Plan Assessment/Plan (1) Debility: (2) Encephalopathy acute: (3) Stroke: (4) Hyponatremia: (5) Seizure disorder: (6) Subclinical hypothyroidism: (7) Alcohol abuse: (8) Anxiety: PLAN: Plan 76 year old female with below past medical history hospitalized for stroke, complicated by agitated encephalopathy, alcohol withdrawal, seizure disorder, hyponatremia, admitted to TCU with debility, here for rehabilitation, strengthening, prior to discharge home with . * Debility - PT/OT/ST. * Pain - Tylenol 1000mg q6h prn pain (1-10). * Bowel - senna/colace 1 tablet bid, Dulcolax 10mg po daily prn. * Adult immunization - Administer pneumonia vaccine, covid19 vaccine, flu vaccine. * DVT prophylaxis - Hold, monitor. * Stroke - Aspirin 81mg daily. * Hyperlipidemia - Atorvastatin 40mg qhs. * Seizure disorder - Keppra 500mg bid. * Hypothyroidism - Levothyroxine 50mcg daily. * Nutrition - MVI daily. 08/23/228 <Electronically signed by Jos Hooks MD> Cosigner Signature (if applicable): CC: Dr. Jos Hooks MD; Chata Barton DO~ Signed [facility] Work Phone: 1([phone]) 194-399903-20-[address] Cannon [facility] August 23, 2022 11:05am Note Date/Time August 23, 2022 11: 05am [facility] Medical Records Department [address] [place] [address] Transfer to Extended Care MR#: [id number] Acct: [id number] Name: NURSE,RADHA OBRIEN Rep #:[id number] : 1945 76 From: Sandy Cannon MD PCP: Chata Barton, DO Status:ADM I N Certification of patient admission REQUIRED AT TIME OF ADMISSION. I CERTIFY THAT POST-HOSPITAL ECF SERVICES ARE REQUIRED TO BE GIVEN ON AN IN-PATIENT BASIS BECAUSE OF THE ABOVE NAMED PATIENT'S NEED FOR LONGTERM CARE ON A CONTINUING BASIS FOR THE CONDITION(S) FOR WHICH HE/SHE WAS RECEIVING IN-PATIENT HOSPITAL SERVICES PRIOR TO HIS/HER TRANSFER TO THE ECF. 08/23/22 1105<Electronically signed by Sandy Cannon MD> Diet Diet Order/Speech Therapy: 08/18/22 10:29 Diet: Regular - General Food consistency:: Regular Liquid Consistency:: Regular/Thin Dietary Modifications:: No Milk to Drink Type of Dietary Supplement:: Nikolas Is pt able to select menu?: No Diet Comments: no milk products Direct Supervision & Assist, MEALS ONLY IF FULLY ALERT Routine Orders/Code Status Enema Type: Fleetz Enema Frequency: Daily PRN Suppository Type: Dulcolax 10mg Suppository Frequency: Daily PRN O2 Frequency: PRN Keep PO Greater than or Equal to (%): 90 Therapies Weight Bearing: Weight bearing as tolerated Physical Therapy: Eval and Treat Occupational Therapy: Eval and Treat Problem/Diagnosis (1) Acute confusion: Status: Acute Code(s): R41.0 - Disorientation, unspecified (2) Encephalopathy acute: Status: Acute Code(s): G93.40 - Encephalopathy, unspecified Plan #Acute encephalopathy * improving. She was diagnosed with a small left temporal CVA * I however think her episodes of confusion is likely due to her chronic alcohol abuse. * CT of the head and neck showed no evidence of hemodynamically significant stenosis. * 2D echo showed EF of 65%. * EEG showed focal dampening in her right temporal lobe but no evidence of seizure. * On Keppra and thiamine * [facility] neurology reviewed patient and per their documentation is possible she had a seizure and had prolonged postictal confusion always having subclinical s eizures. * Patient is alert and oriented and able to communicate now. She does have a chronic history of alcohol use disorder though patient 1 but tells me that she knows she drinks a lot in the next room and she tells me that she does not have a problem with alcohol. Asthma did mention during reviewed that she sneaks in a drink as soon as she wakes up in the morning. * On aspirin and statin #Acute left temporal CVA: As above * * #History of alcohol use disorder: On thiamine. #Subclinical hypothyroidism: TSH was elevated but free T4 was normal and T3 was low. Currently on Synthroid 50 mcg daily DVT prophylaxis: Heparin Disposition: Awaiting placement Allergies/Procedures Done in Hospital Allergies Milk Containing Products Allergy (Verified 08/19/22 11:06) Diarrhea Procedures: 2-D Echocardiogram Type of Care/Length of Stay Estimated LOS: Convalescent Care Less Than 30 days Type of Care Needed: Skilled Rehab Potential: Fair Prognosis: Fair Additional Orders/Day of Discharge Day of Discharge: 08/23/22 Dietary and Speech Recommendations Dietitian Recommendations/Changes: continue regular diet as tolerated- texture/consistency modifications per MUSIC EDUCATION ADJUNCT PROFESSOR; Nikolas BID w/ medpass and Nikolas w/ meals when able; will add vegan protein powder if/when available Discharge Plan Admission Admit Date/Time: 08/16/22 15:37 Primary Reason for Your Visit: encephalopathy Attending Provider: Sandy Cannon Primary Care Provider: Chata Barton Consulting Providers: Aidee Rico ; Jules Shah Discharge Orders/Prescriptions Prescriptions: New atorvastatin 40 mg Tablet 40 mg PO QHS Qty: 30 2RF levothyroxine 50 mcg Tablet 50 mcg PO DAILY@0600 Qty: 30 0RF aspirin 81 mg Tablet,Chewable 81 mg PO BREAKFAST Qty: 30 1RF Continued lorazepam [Ativan] 0.5 mg Tablet 0.5 mg PO QHS PRN (Reason: Anxiety) multivitamin Referrals / Follow Up: Chata Barton DO [Primary Care Provider] - Within 2 Weeks Geovany Mcneal MD [Non-Staff -Ordering Privileges] - Within 2 Weeks (to establish care for stroke. ) Disposition Disposition (needs filled in before D/C Order can be placed): Assisted Facility 08/23/22 1105 <Electronically signed by Sandy Cannon MD> Cosigner Signature (if applicable): CC: Dr. Jules Shah MD; Dr. Aidee Rico MD; Chata Barton, ~ [facility] Work Phone: [phone]) 996-465203-19-[address] Cannon [facility] August 22, 2022 3:56pm Note Date/Time August 22, 2022 10: 41[facility] Medical Records Department [address] [place] [address] Progress Note 08/22/22 1039 MR#: [id number] Acct: [id number] Name: NURSE,RADHA OBRIEN Rep #:[id number] : 1945 76 From: Sandy Cannon MD PCP: Chata Barton DO Status:ADM I N Location: [place] [address] Subjective Subjective Patient seen and examined. She has no complaints this morning. She had an uneventful night. Review systems otherwise negative. She is awaiting placement. Objective Data Objective Data Vital Signs: Vital Signs Temp Pulse Resp BP Pulse Ox O2 Del Method O2 Flow Rate 97.9 F 83 14 119/58 L 100 Room Air 2 08/22/22 09:11 08/22/22 09:11 08/22/22 09:11 08/22/22 09:11 08/22/22 09:11 08/22/22 09:37 08/16/22 14:44 Oxygen Flow Rate (L/min) 2 Oxygen Delivery Method Room Air Weight: 88 lb 6.486 oz Body Mass Index (BMI) 16.1 Intake & Output: Intake and Output for Last 24 Hours 08/20/22 08/21/22 08/22/22 23:59 23:59 23:59 Intake Total 3612.66 / 3612.66 1781.00 / 1781.00 276 / 276 Output Total 1700 / 1700 Balance 1912.66 / 1912.66 1781.00 / 1781.00 276 / 276 Medical Nutrition Assessment Dietitian: Malnutrition Criteria Met Start: 08/17/22 11:29 Freq: Status: Active Protocol: Document 08/19/22 11:30 AG (Rec: 08/19/22 11:30 AG [id number]) Nutrition Malnutrition Evidence of Malnutrition Exists Yes Malnutrition (severe): Acute Illness/Injury Evidenced By Suboptimal Energy Intake ( Severe),Weight Loss (Severe), Physical Changes (Severe) Clinical Problem Acute Disease or Injury Related Malnutrition Etiology severe, acute on likely chronic malnutrition related to inadequate energy intake Signs/Symptoms as evidenced by unintentional wt loss of 2.5#/3% x 2 weeks; severe muscle wasting/fat loss evident in orbital, clavicle, acromion, and temporal areas per physical exam; estimated PO intake meeting <50% of estimated energy needs > 5 days; BMI 16.2 Status Active Problem Recommendation Dietitian Recommendations/Changes continue regular diet as tolerated- texture/consistency modifications per MUSIC EDUCATION ADJUNCT PROFESSOR; Nikolas BID w/ medpass and Nikolas w/ meals when able; will add vegan protein powder if/when available Lab / Micro Data Result Diagrams: 08/22/22 04:45 08/22/22 04:45 Labs: Laboratory Results - last 24 hr 08/22/22 04:45: WBC 6.4, RBC 3.49 L, Hgb 11.4 L, Hct 34.7 L, MCV 99.4 H, MCH 32.7 H, MCHC 32.9, RDW Std Deviation 42.9, RDW Coeff of Bruna 11.7, Plt Count 135 L, MPV 11.3, Immature Gran % (Auto) 0.300, Neut % (Auto) 70.2 H, Lymph % (Auto) 16.2 L, [place] % (Auto) 8.6, Eos % (Auto) 4.2, Baso % (Auto) 0.5, Absolute Neuts (auto) 4.5, Absolute Lymphs (auto) 1.04, Nucleated RBC % 0 08/22/22 04:45: Sodium 140, Potassium 3.8, Chloride 102, Carbon Dioxide 33.0 H, Anion Gap 5, BUN 27 H, Creatinine 0.39 L, Estim Creat Clear Calc 29.35, Est GFR (MDRD) Af Amer 204, Est GFR (MDRD) Non-Af 169, BUN/Creatinine Ratio 69.2 H, Glucose 93, Calcium 8.2 L Micro: Microbiology 08/16/22 14:00 Blood Culture (Wb) - Anticubital Left Blood Culture - Final No growth in 5 days. 08/16/22 13:30 Blood Culture (Wb) - Anticubital Left Blood Culture - Final No growth in 5 days. 08/16/22 13:40 Urine Catheter - Flores Urine Culture - Final Culture exhibits no growth. 08/16/22 13:30 Nasal Secretion SARS-CoV-2 & FLU Antigen (Rapid) - Final Physical Exam Const alert, oriented x3 and no apparent distress General Appearance: cooperative HEENT head/scalp atraumatic, moist oral mucous membranes, oropharynx normal and gingiva normal Eyes PERRL and EOMs intact bilaterally Neck no lymphadenopathy and supple Lymph Lymphatic: no lymphadenopathy noted and no lymphedema noted Resp normal respiratory effort, normal air movement and clear to auscultation bilaterally Cardio regular rate, regular rhythm, S1 normal heart sound, S2 normal heart sound and no murmurs GI normal to inspection, nondistended, normoactive bowel sounds, soft to palpation,non-tender and non-distended Extremity normal capillary refill, no clubbing, cyanosis or edema and no calf tenderness General Extremity: clubbing, cyanosis and no tenderness to palpation of joints or extremities Skin General Skin Exam: no breakdown Neuro CN's II-XII intact bilaterally, no focal motor deficits, no sensory deficits noted and deep tendon reflexes 2+ bilaterally Psych thought process normal Assessment & Plan Assessment/Plan (1) Acute confusion: (2) Encephalopathy acute: PLAN: Plan #Acute encephalopathy * improving. She was diagnosed with a small left temporal CVA * I however think her episodes of confusion is likely due to her chronic alcohol abuse. * CT of the head and neck showed no evidence of hemodynamically significant stenosis. * 2D echo showed EF of 65%. * EEG showed focal dampening in her right temporal lobe but no evidence of seizure. * On Keppra and thiamine * [facility] neurology reviewed patient and per their documentation is possible she had a seizure and had prolonged postictal confusion always having subclinical seizures. * Patient is alert and oriented and able to communicate now. She does have a chronic history of alcohol use disorder though patient 1 but tells me that she knows she drinks a lot in the next room and she tells me that she does not have a problem with alcohol. Asthma did mention during reviewed that she sneaks in a drink as soon as she wakes up in the morning. * On aspirin and statin #Acute left temporal CVA: As above * * #History of alcohol use disorder: On thiamine. #Subclinical hypothyroidism: TSH was elevated but free T4 was normal and T3 was low. Currently on Synthroid 50 mcg daily DVT prophylaxis: Heparin Disposition: Awaiting placement Charges/Coding Visit Charges Inpatient E&M: 37082 Subs Hosp L2 08/22/22 1556 <Electronically signed by Sandy Cannon MD> Sandy Cannon MD Cosigner Signature (if applicable): CC: ~ Signed [facility] Work Phone: [phone]) 107-533103-18-[address] Cannon [facility] August 21, 2022 4:06pm Note Date/Time August 21, 2022 1:5 4pm [facility] Medical Records Department [address] [place] [address] Progress Note 08/21/22 1348 MR#: [id number] Acct: [id number] Name: NURSE,RADHA OBRIEN Rep #:[id number] : 1945 76 From: Sandy Cannon MD PCP: Chata Barton, DO Status:ADM I N Location: [place] [address] Subjective Subjective Patient seen and examined. Her , son and his partner was by her bedside. She had no active complaints and says she felt better. She is awaiting placement. Review of systems otherwise negative. Objective Data Objective Data Vital Signs: Vital Signs Temp Pulse Resp BP Pulse Ox O2 Del Method O2 Flow Rate 97.9 F 77 16 112/58 L 99 Room Air 2 08/21/22 10:00 08/21/22 10:00 08/21/22 10:00 08/21/22 10:00 08/21/22 10:00 08/21/22 10:00 08/16/22 14:44 Oxygen Flow Rate (L/min) 2 Oxygen Delivery Method Room Air Weight: 89 lb 15.178 oz Body Mass Index (BMI) 16.4 Intake & Output: Intake and Output for Last 24 Hours 08/19/22 08/20/22 08/21/22 23:59 23:59 23:59 Intake Total 1644.34 / 1644.34 3612.66 / 3612.66 836 / 836 Output Total 520 / 770 1700 / 1700 Balance 1124.34 / 874.34 1912.66 / 1912.66 836 / 836 Medical Nutrition Assessment Dietitian: Malnutrition Criteria Met Start: 08/17/22 11:29 Freq: Status: Active Protocol: Document 08/19/22 11:30 (Rec: 08/19/22 11:30 AG [id number]) Nutrition Malnutrition Evidence of Malnutrition Exists Yes Malnutrition (severe): Acute Illness/Injury Evidenced By Suboptimal Energy Intake ( Severe),Weight Loss (Severe), Physical Changes (Severe) Clinical Problem Acute Disease or Injury Related Malnutrition Etiology severe, acute on likely chronic malnutrition related to inadequate energy intake Signs/Symptoms as evidenced by unintentional wt loss of 2.5#/3% x 2 weeks; severe muscle wasting/fat loss evident in orbital, clavicle, acromion, and temporal areas per physical exam; estimated PO intake meeting <50% of estimated energy needs > 5 days; BMI 16.2 Status Active Problem Recommendation Dietitian Recommendations/Changes continue regular diet as tolerated- texture/consistency modifications per MUSIC EDUCATION ADJUNCT PROFESSOR; Nikolas BID w/ medpass and Nikolas w/ meals when able; will add vegan protein powder if/when available Lab / Micro Data Result Diagrams: 08/21/22 06:43 08/21/22 06:43 Labs: Laboratory Results - last 24 hr 08/21/22 06:43: WBC 5.7, RBC 3.71 L, Hgb 12.2, Hct 36.4 L, MCV 98.1, MCH 32.9 H,MCHC 33.5, RDW Std Deviation 42.2, RDW Coeff of Bruna 11.8, Plt Count 130 L, MPV 11.2, Immature Gran % (Auto) 0.300, Neut % (Auto) 72.5 H, Lymph % (Auto) 15.5 L,[place] % (Auto) 9.8, Eos % (Auto) 1.6, Baso % (Auto) 0.3, Absolute Neuts (auto) 4.2, Absolute Lymphs (auto) 0.89, Nucleated RBC % 0 08/21/22 06:43: Sodium 140, Potassium 3.8, Chloride 101, Carbon Dioxide 32.0, Anion Gap 7, BUN 16, Creatinine 0.35 L, Estim Creat Clear Calc 29.86, Est GFR (MDRD) Af Amer 230, Est GFR (MDRD) Non-Af 190, BUN/Creatinine Ratio 45.5 H, Glucose 91, Calcium 8.4 L Micro: Microbiology 08/16/22 13:30 Blood Culture (Wb) - Anticubital Left Blood Culture - Final No growth in 5 days. 08/16/22 14:00 Blood Culture (Wb) - Anticubital Left Blood Culture - Preliminary No growth in 48 hours. 08/16/22 13:40 Urine Catheter - Flores Urine Culture - Final Culture exhibits no growth. 08/16/22 13:30 Nasal Secretion SARS-CoV-2 & FLU Antigen (Rapid) - Final Physical Exam Const alert, oriented x3 and no apparent distress General Appearance: cooperative HEENT head/scalp atraumatic, moist oral mucous membranes, oropharynx normal and gingiva normal Eyes PERRL and EOMs intact bilaterally Neck no lymphadenopathy and supple Lymph Lymphatic: no lymphadenopathy noted and no lymphedema noted Resp normal respiratory effort, normal air movement and clear to auscultation bilaterally Cardio regular rate, regular rhythm, S1 normal heart sound, S2 normal heart sound and no murmurs GI normal to inspection, nondistended, normoactive bowel sounds, soft to palpation,non-tender and non-distended Extremity normal capillary refill, no clubbing, cyanosis or edema and no calf tenderness General Extremity: clubbing, cyanosis and no tenderness to palpation of joints or extremities Skin General Skin Exam: no breakdown Neuro CN's II-XII intact bilaterally, no focal motor deficits, no sensory deficits noted and deep tendon reflexes 2+ bilaterally Psych thought process normal Assessment & Plan Assessment/Plan (1) Acute confusion: (2) Encephalopathy acute: PLAN: Plan #Acute encephalopathy * improving. She was diagnosed with a small left temporal CVA * I however think her episodes of confusion is likely due to her chronic alcohol abuse. * CT of the head and neck showed no evidence of hemodynamically significant stenosis. * 2D echo showed EF of 65%. * EEG showed focal dampening in her right temporal lobe but no evidence of seizure. * On Keppra and thiamine * [facility] neurology reviewed patient and per their documentation is possible she had a seizure and had prolonged postictal confusion always having subclinical seizures. * Patient is alert and oriented and able to communicate now. She does have a chronic history of alcohol use disorder though patient 1 but tells me that she knows she drinks a lot in the next room and she tells me that she does not have a problem with alcohol. Asthma did mention during reviewed that she sneaks in a drink as soon as she wakes up in the morning. * On aspirin and statin #Acute left temporal CVA: As above * * #History of alcohol use disorder: On thiamine. #Subclinical hypothyroidism: TSH was elevated but free T4 was normal and T3 was low. Currently on Synthroid 50 mcg daily DVT prophylaxis: Heparin Disposition: Awaiting placement # Charges/Coding Visit Charges Inpatient E&M: 01101 Subs Hosp L2 08/21/22 1606 <Electronically signed by Sandy Cannon MD> Sandy Cannon MD Cosigner Signature (if applicable): CC: ~ Signed [facility] Work Phone: 1(291) 665-661803-17-[address] Shah [facility] August 20, 2022 10:07am Note Date/Time August 20, 2022 10: 07am [facility] Medical Records Department [address] [place] [address] Progress Note - Hospitalist 08/20/22 1004 MR#: [id number] Acct: [id number] Name: NURSE,RADHA OBRIEN Rep #:[id number] : 1945 76 From: Jules flower MD PCP: Chata Barton, Status:ADM I N Location: [place] [address] Subjective Subjective Much more alert and interactive even today, she is sitting up and feeding herself Objective Data Objective Data Vital Signs: Vital Signs Temp Pulse Resp BP Pulse Ox O2 Del Method O2 Flow Rate 97.5 F L 91 16 109/57 L 100 Room Air 2 08/20/22 08:59 08/20/22 08:59 08/20/22 08:59 08/20/22 08:59 08/20/22 08:59 08/20/22 08:59 08/16/22 14:44 Oxygen Flow Rate (L/min) 2 Oxygen Delivery Method Room Air Weight: 93 lb 11.143 oz Body Mass Index (BMI) 17.1 Intake & Output: Intake and Output for Last 24 Hours 08/19/22 08/20/22 08/21/22 03:59 03:59 03:59 Intake Total 696 / 696 2644.34 / 2644.34 905 / 905 Output Total 800 / 800 770 / 770 700 / 700 Balance -104 / -104 1874.34 / 1874.34 205 / 205 Medical Nutrition Assessment Dietitian: Malnutrition Criteria Met Start: 08/17/22 11:29 Freq: Status: Active Protocol: Document 08/19/22 11:30 (Rec: 08/19/22 11:30 [id number]) Nutrition Malnutrition Evidence of Malnutrition Exists Yes Malnutrition (severe): Acute Illness/Injury Evidenced By Suboptimal Energy Intake ( Severe),Weight Loss (Severe), Physical Changes (Severe) Clinical Problem Acute Disease or Injury Related Malnutrition Etiology severe, acute on likely chronic malnutrition related to inadequate energy intake Signs/Symptoms as evidenced by unintentional wt loss of 2.5#/3% x 2 weeks; severe muscle wasting/fat loss evident in orbital, clavicle, acromion, and temporal areas per physical exam; estimated PO intake meeting <50% of estimated energy needs > 5 days; BMI 16.2 Status Active Problem Recommendation Dietitian Recommendations/Changes continue regular diet as tolerated- texture/consistency modifications per MUSIC EDUCATION ADJUNCT PROFESSOR; Nikolas BID w/ medpass and Nikolas w/ meals when able; will add vegan protein powder if/when available Lab / Micro Data Result Diagrams: 08/20/22 06:27 08/20/22 06:27 Labs: Laboratory Results - last 24 hr 08/16/22 21:13: Vit D 1,25-Dihydroxy 90.7 H 08/20/22 06:27: WBC 7.4, RBC 3.85 L, Hgb 12.7, Hct 37.7, MCV 97.9, MCH 33.0 H, MCHC 33.7, RDW Std Deviation 41.8, RDW Coeff of Bruna 11.6, Plt Count 113 L, MPV 10.7, Immature Gran % (Auto) 0.400, Neut % (Auto) 81.1 H, Lymph % (Auto) 8.4 L, [place] % (Auto) 9.7, Eos % (Auto) 0.3, Baso % (Auto) 0.1, Absolute Neuts (auto) 6.0, Absolute Lymphs (auto) 0.62 L, Nucleated RBC % 0 08/20/22 06:27: Sodium 137, Potassium 3.6, Chloride 100, Carbon Dioxide 29.0, Anion Gap 8, BUN 23 H, Creatinine 0.35 L, Estim Creat Clear Calc 31.11, Est GFR (MDRD) Af Amer 229, Est GFR (MDRD) Non-Af 189, BUN/Creatinine Ratio 65.2 H, Glucose 100, Calcium 8.0 L Micro: Microbiology 08/16/22 14:00 Blood Culture (Wb) - Anticubital Left Blood Culture - Preliminary No growth in 48 hours. 08/16/22 13:30 Blood Culture (Wb) - Anticubital Left Blood Culture - Preliminary No growth in 48 hours. 08/16/22 13:40 Urine Catheter - Flores Urine Culture - Final Culture exhibits no growth. 08/16/22 13:30 Nasal Secretion SARS-CoV-2 & FLU Antigen (Rapid) - Final Physical Exam Narrative General: Alert, oriented, No apparent distress HEENT: Atraumatic, PERRLA, EOMI, Normocephalic, cachectic Oral: Moist Mucosa Neck: Supple, No JVD Lungs: Diminished, Normal air movement, No rhonchi, No wheeze, No rales Cardiovascular: Regular rate, Regular Rhythm, Normal S1, Normal S2, No murmurs Abdomen: Soft, Non Tender, Non-Distended, No Hepato-splenomegaly Extremities: No edema, Capillary Refill Less than 3 Seconds Skin: No rashes, No breakdown Musculoskeletal: No Tenderness to Palpation of Joints or Extremities Neurological: Moves all extremities, sensory exam intact Psych/Mental Status: Normal affect Assessment & Plan Assessment/Plan (1) Acute confusion: (2) Encephalopathy acute: PLAN: Plan 1. 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 She did quit drinking about 2 weeks ago so potentially prolonged withdrawal, though unlikely ? CTA of the head and neck was unremarkable ? Repeat CT scan of the brain is negative for stroke, MRI was able to be done after Ativan, demonstrates a left temporal lobe stroke ? CT of the pelvis does not show a fracture though it does show osteopenia ? Vitamin D level is elevated ? Echo with EF of 65% and RVSP of 27 mmHg ? TSH is elevated, free T4 is normal but T3 is low, will start her on Synthroid ? We will continue with risperidone, some of this might be nutritional deficiency, phosphorus and magnesium are normal no leukocytosis to indicate infection, UA and chest x-ray are unremarkable. LFTs are normal and ammonia level is normal. ? EEG demonstrated a focal dampening in her right temporal lobe indicative of a structural issue however nothing was present on MRI. We will continue with Keppra as well as thiamine 2. History of alcohol abuse/severe protein calorie malnutrition ? She is very thin, alcohol level was negative ? Continue with thiamine DVT: Heparin Charges/Coding Visit Charges Inpatient E&M: 11700 Subs Hosp L2 08/20/22 1007 <Electronically signed by Jules Shah MD> Cosigner Signature (if applicable): CC: ~ Signed [facility] Work Phone: 1(430) 146-452503-16-[address] Shah [facility] August 19, 2022 10:36am Note Date/Time August 19, 2022 10: 36am [facility] Medical Records Department [address] [place] [address] Progress Note - Hospitalist 08/19/22 1034 MR#: [id number] Acct: [id number] Name: NURSE,RADHA OBRIEN Rep #:[id number] : 1945 76 From: Jules flower MD PCP: Chata Barton, DO Status:ADM I N Location: [place] [address] Subjective Subjective More alert today and interactive. She knew where she was but she took a long time to get there and she could not tell me the year Objective Data Objective Data Vital Signs: Vital Signs Temp Pulse Resp BP Pulse Ox O2 Del Method O2 Flow Rate 97.6 F L 77 16 98/60 98 Room Air 2 08/19/22 09:15 08/19/22 09:15 08/19/22 09:15 08/19/22 09:15 08/19/22 09:15 08/19/22 09:15 08/16/22 14:44 Oxygen Flow Rate (L/min) 2 Oxygen Delivery Method Room Air Weight: 88 lb 8.003 oz Body Mass Index (BMI) 16.2 Intake & Output: Intake and Output for Last 24 Hours 08/18/22 08/19/22 08/20/22 03:59 03:59 03:59 Intake Total 1851 / 1851 696 / 696 Output Total 700 / 700 800 / 800 100 / 100 Balance 1151 / 1151 -104 / -104 -100 / -100 Medical Nutrition Assessment Dietitian: Malnutrition Criteria Met Start: 08/17/22 11:29 Freq: Status: Active Protocol: Document 08/17/22 11:29 AG (Rec: 08/17/22 11:30 AG [id number]) Nutrition Malnutrition Evidence of Malnutrition Exists Yes Malnutrition (severe): Acute Illness/Injury Evidenced By Suboptimal Energy Intake ( Severe),Weight Loss (Severe), Physical Changes (Severe) Clinical Problem Acute Disease or Injury Related Malnutrition Etiology severe, acute on likely chronic malnutrition related to inadequate energy intake Signs/Symptoms as evidenced by unintentional wt loss of 2.5#/3% x 2 weeks; severe muscle wasting/fat loss evident in orbital, clavicle, acromion, and temporal areas per physical exam; estimated PO intake meeting <50% of estimated energy needs > 5 days; BMI 16.2 Status Active Problem Recommendation Dietitian Recommendations/Changes recommend regular diet as tolerated- texture/consistency modifications per [employer]IC [employer]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 Lab / Micro Data Result Diagrams: 08/18/22 06:31 08/18/22 06:31 Labs: Laboratory Results - last 24 hr 08/16/22 12:45: POC Glucose 102 Micro: Microbiology 08/16/22 14:00 Blood Culture (Wb) - Anticubital Left Blood Culture - Preliminary No growth in 48 hours. 08/16/22 13:30 Blood Culture (Wb) - Anticubital Left Blood Culture - Preliminary No growth in 48 hours. 08/16/22 13:40 Urine Catheter - Flores Urine Culture - Final Culture exhibits no growth. 08/16/22 13:30 Nasal Secretion SARS-CoV-2 & FLU Antigen (Rapid) - Final Radiography Diagnostic Testing: Radiology Impression Brain MRI 08/18/22 19:43 IMPRESSION: Mild atrophy and moderate periventricular white matter ischemic change.. Tiny acute ischemic infarction in the left posterior temporal lobe Electronically Signed: Toni Velarde MD at 21:34 EDT , ADDENDUM: 08/18/224 IMPRESSION: Mild atrophy and moderate periventricular white matter ischemic change.. Tiny acute ischemic infarction in the left posterior temporal lobe N.B. : The above Results were Read Back by Toni Velarde MD to Zoila Alexander RN, and understanding confirmed on 08/18/2022 21:57:29 (ET). Electronically Signed: Toni Velarde MD at 21:34 EDT , Physical Exam Narrative General: Alert, disoriented, No apparent distress HEENT: Atraumatic, PERRLA, EOMI, Normocephalic, cachectic Oral: Moist Mucosa Neck: Supple, No JVD Lungs: Diminished, Normal air movement, No rhonchi, No wheeze, No rales Cardiovascular: Regular rate, Regular Rhythm, Normal S1, Normal S2, No murmurs Abdomen: Soft, Non Tender, Non-Distended, No Hepato-splenomegaly Extremities: No edema, Capillary Refill Less than 3 Seconds Skin: No rashes, No breakdown Musculoskeletal: No Tenderness to Palpation of Joints or Extremities Neurological: Moves all extremities, sensory exam intact Psych/Mental Status: Normal affect Assessment & Plan Assessment/Plan (1) Acute confusion: (2) Encephalopathy acute: PLAN: Plan 1. 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 She did quit drinking about 2 weeks ago so potentially prolonged withdrawal, though unlikely ? CTA of the head and neck was unremarkable ? Repeat CT scan of the brain is negative for stroke, MRI was able to be done yesterday after Ativan, demonstrates a left temporal lobe stroke ? CT of the pelvis does not show a fracture though it does show osteopenia ? Vitamin D level is pending ? Echo with EF of 65% and RVSP of 27 mmHg ? TSH is elevated, free T4 is normal but T3 is low unfortunate she is currently n.p.o. but when able we will start her on Synthroid ? We will continue with risperidone, some of the might be nutritional deficiency, phosphorus and magnesium are normal no leukocytosis to indicate infection, UA and chest x-ray are unremarkable. LFTs are normal and ammonia level is normal. ? EEG demonstrated a focal dampening in her right temporal lobe indicative of a structural issue however nothing was present on MRI. We will continue with Keppra as well as thiamine 2. History of alcohol abuse/likely malnutrition ? She is very thin, alcohol level was negative ? Continue with thiamine Had a 20-minute advance care planning discussion with the family today about goals of care in terms of feeding and also plan for discharge DVT: Heparin Charges/Coding Visit Charges Inpatient E&M: 81145 Subs Hosp L2 Procedures Hospitalists Procedures: 21417 Advncd Care Plan 30 Min 08/19/22 1036 <Electronically signed by Jules Shah MD> Cosigner Signature (if applicable): CC: ~ Signed [facility] Work Phone: [phone] Shah [facility] August 18, 2022 1:57pm Note Date/Time August 18, 2022 1:5 7pm [facility] Medical Records Department [address] [place] [address] Telemedicine Confirmation Receipt 08/18/22 MR#: [id number] Acct: [id number] Name: RADHA ABAD Rep #:[id number] : 1945 76 From: Jules flower MD PCP: Chata Barton, DO Status:ADM I N [facility] has confirmed receipt of a request for visit. This document confirms receipt of the order initiating the consult. To find the results of the consultation, please view the patient's reports for the scanned Telemed Consult. [facility] Work Phone: [phone] Shah [facility] August 18, 2022 10:16am Note Date/Time August 18, 2022 10: 16am [facility] Medical Records Department [address] [place] [address] Progress Note - Hospitalist 08/18/22 1013 MR#: [id number] Acct: [id number] Name: RADHA ABAD Rep #:[id number] : 1945 76 From: Jules flower MD PCP: Chata Barton, Status:ADM I N Location: [address] Subjective Subjective Not very interactive this morning. She will open her eyes to stimuli Objective Data Objective Data Vital Signs: Vital Signs Temp Pulse Resp BP Pulse Ox O2 Del Method O2 Flow Rate 97.6 F L 69 15 123/58 H 96 Room Air 2 08/18/22 05:21 08/18/22 05:21 08/18/22 05:21 08/18/22 05:21 08/18/22 07:20 08/18/22 09:06 08/16/22 14:44 Oxygen Flow Rate (L/min) 2 Oxygen Delivery Method Room Air Weight: 88 lb 8.003 oz Body Mass Index (BMI) 16.2 Intake & Output: Intake and Output for Last 24 Hours 08/17/22 08/18/22 08/19/22 03:59 03:59 03:59 Intake Total 1101.2 / 1101.2 1851 / 1851 Output Total 4400 / 4400 700 / 700 100 / 100 Balance -3298.8 / -3298.8 1151 / 1151 -100 / -100 Medical Nutrition Assessment Dietitian: Malnutrition Criteria Met Start: 08/17/22 11:29 Freq: Status: Active Protocol: Document 08/17/22 11:29 AG (Rec: 08/17/22 11:30 AG [id number]) Nutrition Malnutrition Evidence of Malnutrition Exists Yes Malnutrition (severe): Acute Illness/Injury Evidenced By Suboptimal Energy Intake ( Severe),Weight Loss (Severe), Physical Changes (Severe) Clinical Problem Acute Disease or Injury Related Malnutrition Etiology severe, acute on likely chronic malnutrition related to inadequate energy intake Signs/Symptoms as evidenced by unintentional wt loss of 2.5#/3% x 2 weeks; severe muscle wasting/fat loss evident in orbital, clavicle, acromion, and temporal areas per physical exam; estimated PO intake meeting <50% of estimated energy needs > 5 days; BMI 16.2 Status Active Problem Recommendation Dietitian Recommendations/Changes recommend regular diet as tolerated- texture/consistency modifications per 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 Lab / Micro Data Result Diagrams: 08/18/22 06:31 08/18/22 06:31 Labs: Laboratory Results - last 24 hr 08/17/22 07:05: Phosphorus 3.8, Magnesium 2.0 08/18/22 06:31: WBC 9.3, RBC 4.31, Hgb 14.3, Hct 41.9, MCV 97.2, MCH 33.2 H, MCHC 34.1, RDW Std Deviation 41.5, RDW Coeff of Bruna 11.4 L, Plt Count 132 L, MPV10.1, Immature Gran % (Auto) 0.400, Neut % (Auto) 76.0 H, Lymph % (Auto) 8.6 L, [place] % (Auto) 14.5 H, Eos % (Auto) 0.0, Baso % (Auto) 0.5, Absolute Neuts (auto)7.0, Absolute Lymphs (auto) 0.80 L, Nucleated RBC % 0 08/18/22 06:31: Sodium 134 L, Potassium 3.5, Chloride 97 L, Carbon Dioxide 27.0,Anion Gap 10, BUN 13, Creatinine 0.48 L, Estim Creat Clear Calc 29.38, Est GFR (MDRD) Af Amer 159, Est GFR (MDRD) Non-Af 132, BUN/Creatinine Ratio 26.9 H, Glucose 110 H, Calcium 8.6 Micro: Microbiology 08/16/22 13:40 Urine Catheter - Flores Urine Culture - Final Culture exhibits no growth. 08/16/22 13:30 Nasal Secretion SARS-CoV-2 & FLU Antigen (Rapid) - Final Radiography Diagnostic Testing: Radiology Impression Echocardiogram 08/16/22 15:54 Interpretation Summary The study was technically difficult. Based upon the 2D echocardiographic images obtained there appears to be normal left ventricular size, wall motion, and systolic function. The estimated ejection fraction is 65 %. Moderate diffuse mitral valve thickening. The mitral valve chordae are thickened and/or calcified. Mild (1+) mitral valve insufficiency. Moderate diffuse thickening of the tricuspid valve. Mild to moderate (1-2+) tricuspid valve insufficiency. Mild diffuse aortic valve thickening. Right ventricular systolic pressure estimated to be 27 mmHg. Unable to assess diastolic dysfunction. Ordering Physician: Aidee Rico Referring Physician: Chata Barton Performed By: Sandra Pinto, RDCS, RVT Hip/Pelvis X-Ray 08/17/22 13:35 IMPRESSION: Degenerative findings of the hips. Question hairline fracture of the left lesser trochanter. This is non displaced. CT can better evaluate. Electronically Signed: Jose Antonio Dumont MD at 14:15 EDT , Brain CT 08/18/22 05:55 IMPRESSION: Chronic involutional changes of the brain. No acute hemorrhage Electronically Signed: Leon Valdovinos MD at 7:47 EDT , Pelvis CT 08/18/22 05:55 IMPRESSION: Diffuse osteopenia with age consistent bilateral hip and SI joint arthrosis, no demonstrated acute fracture or suspicious osseous lesion. No CT evidence to suspect AVN. No soft tissue swelling or other indirect evidence of fracture Bladder contains a Flores catheter and air likely from the placement of the catheter No free pelvic fluid or air Electronically Signed: Leon Valdovinos MD at 7:46 EDT , Physical Exam Narrative General: Alert, disoriented, agitated, No apparent distress HEENT: Atraumatic, PERRLA, EOMI, Normocephalic, cachectic Oral: Moist Mucosa Neck: Supple, No JVD Lungs: Diminished, Normal air movement, No rhonchi, No wheeze, No rales Cardiovascular: Regular rate, Regular Rhythm, Normal S1, Normal S2, No murmurs Abdomen: Soft, Non Tender, Non-Distended, No Hepato-splenomegaly Extremities: No edema, Capillary Refill Less than 3 Seconds Skin: No rashes, No breakdown Musculoskeletal: No Tenderness to Palpation of Joints or Extremities Neurological: Cranial nerves II-XII grossly intact, Motor Exam 5/5 strength throughout, Sensory exam intact to light touch and pain Psych/Mental Status: Flat affect/agitated Assessment & Plan Assessment/Plan (1) Acute confusion: (2) Encephalopathy acute: PLAN: Plan 1. Acute encephalopathy with expressive aphasia here for CVA rule out ? She did quit drinking about 2 weeks ago so potentially prolonged withdrawal, though unlikely ? CTA of the head and neck was unremarkable, she could not tolerate an MRI even with Ativan ? Repeat CT scan of the brain is negative for stroke ? CT of the pelvis does not show a fracture though it does show osteopenia ? Vitamin D level is pending ? Echo with EF of 65% and RVSP of 27 mmHg ? TSH is elevated, free T4 is normal but T3 is low unfortunate she is currently n.p.o. but when able we will start her on Synthroid ? We will continue with risperidone, some of the might be nutritional deficiency, phosphorus and magnesium are normal no leukocytosis to indicate infection, UA and chest x-ray are unremarkable. LFTs are normal and ammonia level is normal. We will obtain an EEG today 2. History of alcohol abuse/likely malnutrition ? She is very thin, alcohol level was negative ? Continue with thiamine DVT: Heparin Charges/Coding Visit Charges Inpatient E&M: 40308 Subs Hosp L2 08/18/22 1016 <Electronically signed by Jules Shah MD> Cosigner Signature (if applicable): CC: ~ Signed [facility] Work Phone: [phone] Shah [facility] August 18, 2022 9:20am Note Date/Time August 18, 2022 9:2 1am [facility] Medical Records Department [address] [place] [address] Telemedicine Confirmation Receipt 08/18/22 MR#: [id number] Acct: [id number] Name: NURSE,RADHA OBRIEN Rep #:[id number] : 1945 76 From: Jules flower MD PCP: Chata Barton, Status:ADM I N [facility] has confirmed receipt of a request for visit. This document confirms receipt of the order initiating the consult. To find the results of the consultation, please view the patient's reports for the scanned Telemed Consult. [facility] Work Phone: [phone]) [phone] Shah [facility] August 17, 2022 9:48am Note Date/Time August 17, 2022 9:4 6am [facility] Medical Records Department [address] [place] [address] Progress Note - Hospitalist 08/17/22 0938 MR#: [id number] Acct: [id number] Name: NURSE,RADHA OBRIEN Rep #:[id number] : 1945 76 From: Jules flower MD PCP: Chata Barton, DO Status:ADM I N Location: [place] [address] Subjective Subjective Agitated overnight necessitating a sitter. Resting comfortably this morning Objective Data Objective Data Vital Signs: Vital Signs Temp Pulse Resp BP Pulse Ox O2 Del Method O2 Flow Rate 101.8 F H 80 16 101/55 L 92 Room Air 2 08/17/22 06:00 08/17/22 06:00 08/17/22 06:00 08/17/22 06:00 08/17/22 06:00 08/17/22 06:00 08/16/22 14:44 Oxygen Flow Rate (L/min) 2 Oxygen Delivery Method Room Air Weight: 88 lb 8 oz Body Mass Index (BMI) 16.2 Intake & Output: Intake and Output for Last 24 Hours 08/16/22 08/17/22 08/18/22 03:59 03:59 03:59 Intake Total 1101.2 / 1101.2 1000 / 1000 Output Total 4400 / 4400 350 / 350 Balance -3298.8 / -3298.8 650 / 650 Lab / Micro Data Result Diagrams: 08/17/22 07:05 08/17/22 07:05 Labs: Laboratory Results - last 24 hr 08/16/22 12:45: WBC 4.0 L, RBC 4.04 L, Hgb 13.3, Hct 38.4, MCV 95.0, MCH 32.9 H,MCHC 34.6, RDW Std Deviation 40.1, RDW Coeff of Bruna 11.5 L, Plt Count 177, MPV 10.1, Immature Gran % (Auto) 0.500, Neut % (Auto) 59.9, Lymph % (Auto) 24.2, [place] % (Auto) 12.7 H, Eos % (Auto) 1.5, Baso % (Auto) 1.2 H, Absolute Neuts (auto) 2.4, Absolute Lymphs (auto) 0.97, Nucleated RBC % 0 08/16/22 12:45: PT 13.4, INR 1.1, APTT 25.6 08/16/22 12:45: Sodium 127 L, Potassium 3.6, Chloride 89 L, Carbon Dioxide 30.0,Anion Gap 8, BUN 10, Creatinine 0.50 L, Estim Creat Clear Calc 30.81, Est GFR (MDRD) Af Amer 155, Est GFR (MDRD) Non-Af 128, BUN/Creatinine Ratio 20.2 H, Glucose 135 H, Calcium 8.8, Troponin I High Sens 8 08/16/22 12:45: Total Bilirubin 0.50, Direct Bilirubin 0.18, AST 29, ALT 39, Alkaline Phosphatase 64, Total Protein 6.6, Albumin 4.2, Globulin 2.4 08/16/22 12:45: Folate 28.70, TSH 8.14 H 08/16/22 13:30: Ammonia < 10.0 L 08/16/22 13:30: Lactic Acid 2.1 H* 08/16/22 13:40: Urine Color Yellow, Urine Clarity Clear, Urine pH 8.0, Ur Specific [place] 1.015, Urine Protein Negative, Urine Glucose (UA) Normal, Urine Ketones Negative, Urine Occult Blood Negative, Urine Nitrite Negative, Urine Bilirubin Negative, Urine Urobilinogen Normal, Ur Leukocyte Esterase Negative, Urine RBC 0 SEEN, Urine WBC 0 SEEN, Ur Squamous Epith Cells 0 SEEN, Urine Bacteria 0 SEEN, Urine Mucus 0 SEEN 08/16/22 13:40: Urine Opiates Screen NEGATIVE, Urine Methadone Screen NEGATIVE, Ur Barbiturates Screen NEGATIVE, Ur Phencyclidine Scrn NEGATIVE, Ur AmphetaminesScreen NEGATIVE, MDMA (Ecstasy) Screen NEGATIVE, U Benzodiazepines Scrn NEGATIVE, Urine Cocaine Screen NEGATIVE, U Cannabinoids Screen NEGATIVE, Ur DrugScreen Comment 08/16/22 21:13: Ethyl Alcohol < 3.0 08/16/22 21:13: Vitamin B12 580 08/16/22 21:13: Sodium 133 L, Potassium 3.0 L, Chloride 94 L, Carbon Dioxide 29.0, Anion Gap 10, BUN 6 L, Creatinine 0.41 L, Estim Creat Clear Calc 29.38, Est GFR (MDRD) Af Amer 194, Est GFR (MDRD) Non-Af 160, BUN/Creatinine Ratio 14.7, Glucose 113 H, Calcium 8.1 L 08/16/22 21:13: Serum Osmolality 270 L 08/16/22 21:13: Lactic Acid 0.7 08/17/22 07:05: WBC 5.8, RBC 3.95 L, Hgb 12.8, Hct 37.2, MCV 94.2, MCH 32.4 H, MCHC 34.4, RDW Std Deviation 39.3, RDW Coeff of Bruna 11.4 L, Plt Count 147 L, MPV9.9, Immature Gran % (Auto) 0.200, Neut % (Auto) 73.9 H, Lymph % (Auto) 11.6 L, [place] % (Auto) 13.8 H, Eos % (Auto) 0.0, Baso % (Auto) 0.5, Absolute Neuts (auto)4.3, Absolute Lymphs (auto) 0.67 L, Nucleated RBC % 0 08/17/22 07:05: Sodium 132 L, Potassium 3.0 L, Chloride 95 L, Carbon Dioxide 28.0, Anion Gap 9, BUN 7, Creatinine 0.46 L, Estim Creat Clear Calc 29.38, Est GFR (MDRD) Af Amer 170, Est GFR (MDRD) Non-Af 140, BUN/Creatinine Ratio 15.3, Glucose 108 H, Calcium 8.2 L, Total Bilirubin 0.80, AST 48 H, ALT 38, Alkaline Phosphatase 53, Total Protein 6.3 L, Albumin 3.9, Globulin 2.4, Albumin/GlobulinRatio 1.6, Triglycerides 63, Cholesterol 159, LDL Cholesterol 66, VLDL Cholesterol 13, HDL Cholesterol 80 08/17/22 07:05: Free T4 1.27, Free T3 pg/dL 1.8 L Micro: Microbiology 08/16/22 13:30 Nasal Secretion SARS-CoV-2 & FLU Antigen (Rapid) - Final ABG Data ABG results: ABG 08/16/22 14:30 Specimen Type ART pH 7.41 Bicarbonate Actual 31.0 H Total CO2 33 Base Excess 6 H O2 Saturation 95 ABG pCO2 49.3 H ABG pO2 78 O2 Delivery Device Room Air Radiography Diagnostic Testing: Radiology Impression Brain CT 08/16/22 12:48 IMPRESSION: 1. No acute intracranial abnormality. 2. Senescent changes. Aspect score 10. Electronically Signed: Jordan Ivan MD at 13:00 EDT , ADDENDUM: 08/16/22 1308 IMPRESSION: 1. No acute intracranial abnormality. 2. Senescent changes. Aspect score 10. N.B. : The above Results were Read Back by Jordan Ivan MD to Kalin Macedo DO, and understanding confirmed on 08/16/2022 13:01:59 (ET). Electronically Signed: Jordan Ivan MD at 13:00 EDT , Head/Neck CTA 08/16/22 12:48 IMPRESSION: Unremarkable CTA Head and Neck. Electronically Signed: Jordan Ivan MD at 13:10 EDT , ADDENDUM: 08/16/22 1322 IMPRESSION: Unremarkable CTA Head and Neck. N.B. : The above Results were Read Back by Jordan Ivan MD to Kalin Macedo DO, and understanding confirmed on 08/16/2022 13:15:30 (ET). Electronically Signed: Jordan Ivan MD at 13:10 EDT , Chest X-Ray 08/16/22 14:25 IMPRESSION: No acute cardiopulmonary disease. Electronically Signed: Jordan Ivan MD at 14:44 EDT Reading Location ID and State: [address] [place] [address] Tel , Service support , Physical Exam Narrative General: Alert, disoriented, agitated, No apparent distress HEENT: Atraumatic, PERRLA, EOMI, Normocephalic Oral: Moist Mucosa Neck: Supple, No JVD Lungs: Diminished, Normal air movement, No rhonchi, No wheeze, No rales Cardiovascular: Regular rate, Regular Rhythm, Normal S1, Normal S2, No murmurs Abdomen: Soft, Non Tender, Non-Distended, No Hepato-splenomegaly Extremities: No edema, Capillary Refill Less than 3 Seconds Skin: No rashes, No breakdown Musculoskeletal: No Tenderness to Palpation of Joints or Extremities Neurological: Cranial nerves II-XII grossly intact, Motor Exam 5/5 strength throughout, Sensory exam intact to light touch and pain Psych/Mental Status: Flat affect/agitated Assessment & Plan Assessment/Plan (1) Acute confusion: (2) Encephalopathy acute: PLAN: Plan 1. Acute encephalopathy with expressive aphasia here for CVA rule out ? She did quit drinking about 2 weeks ago so potentially prolonged withdrawal ? CTA of the head and neck was unremarkable, MRI is pending depending pretreatment otherwise we will need to repeat a CT scan tomorrow ? Echo pending ? TSH is elevated so we will obtain a free T3/T4 ? Given her agitation we will start risperidone 2. History of alcohol abuse/likely malnutrition ? She is very thin, Elise level was negative ? Continue with thiamine and folate DVT: Heparin Charges/Coding Visit Charges Inpatient E&M: 58166 Subs Hosp L2 08/17/22 0970 <Electronically signed by Jules Shah MD> Cosigner Signature (if applicable): CC: ~ Signed [facility] Work Phone: [phone] History and physical note Author Dr. Rico [facility] August 16, 2022 4:26pm Note Date/Time August 16, 2022 3:5 7pm [facility] Medical Records Department [address] [place] [address] H&P Exam - Hospitalist 08/16/22 1537 MR#: [id number] Acct: [id number] Name: NURSE,RADHA OBRIEN Rep #:[id number] : 1945 76 From: Aidee Rico MD PCP: Chata Barton, DO Status:ADM I N Location: [place] [address]- HPI - General General Date of Admission: 08/16/22 Date of Service: 08/16/22 Chief Complaint: AMS HPI Narrative RADHA NURSE, is a Radha Nurse is a 76y/o female w/ hx of anxiety who prsented to [facility] 08/16/22 as a stroke alert. She was in her normal health at 11 AM when herhusband left and when he came back at 1115 she was having difficulty with words and she was confused. She presented to the ED as a stroke alert but teleneurology did not think she is a thrombolytic candidate. She had ABG which showed pH of 7.407, PCO2 of 49.3, PO2 of 77.5, bicarb of 31 and she was 95% on room air. Does have a sodium of 127 and a chloride of 89 with no previous values. UA not suggestive of UTI. Troponin of 8, ammonia and hepatic profile within normal limits. Reportedly has history of drinking 12 ounces of wine a night and stopped several weeks ago. Not improving in ED, hospitalist consultedfor admission for encephalopathy as well as further stroke work-up. Evaluated patient at bedside with daughter and . They report she is usually very sharp and active and walks twice a day and this is a marked change from baseline. Her reports that she was fine at 11 AM and was on the treadmill and then walked upstairs and she was having difficulty with getting her words out and was confused. They do report drinking history and reports shequit drinking 2 weeks ago and had a difficult time with quitting but is no longer drinking. They do note that she does not eat well but tries to drink liquids, has a history of anorexia that they report is fairly well managed but she still very thin. They also report that she had a fall in May and hurt one of her hips and has had significant pain since that time and is still able to walk but has difficulty lying on that side, though they are unsure which side. They deny that she has had any other complaints leading up to this but notes that she hates doctors and hospitals and has not had her hip imaged. FORMERLY [facility], [facility]1983 Medical History Anxiety Home Medications lorazepam 0.5 mg tablet (Ativan) 0.5 mg PO QHS PRN Anxiety 08/16/22 [History Last Taken Unknown] Allergy/AdvReac Type Severity Reaction Status Date / Time lactose [dairy lactose] AdvReac Food Verified 08/16/22 12:55 Allergy Surgical History Hx of hysterectomy Social History (Updated 08/16/22 @ 14:[address] Kalin Macedo DO) Smoking Status: Former smoker alcohol intake: former year quit: 2022 details: Recently quit drinking alcohol 2-3 weeks ago. ROS ROS Narrative Unable to obtain secondary to mental status Vital Signs Vital Signs Vital Signs: 08/16/22 12:46 08/16/22 12:49 08/16/22 12:53 Temperature 97.2 F L Temperature Source Temporal Pulse Rate 70 70 Respiratory Rate 16 14 Blood Pressure 147/67 H 147/67 H Blood Pressure Mean 93 93 Pulse Ox 100 100 100 Oxygen Delivery Method Room Air Room Air Room Air Oxygen Flow Rate (L/min) 08/16/22 13:03 08/16/22 14:11 08/16/22 14:44 Temperature Temperature Source Pulse Rate 87 82 Respiratory Rate 17 16 Blood Pressure 145/74 H 127/68 H Blood Pressure Mean 97 87 Pulse Ox 99 98 81 Oxygen Delivery Method Room Air Room Air Oxygen Flow Rate (L/min) 08/16/22 14:44 Temperature Temperature Source Pulse Rate Respiratory Rate Blood Pressure Blood Pressure Mean Pulse Ox 98 Oxygen Delivery Method Nasal Cannula Oxygen Flow Rate (L/min) 2 Weight Weight: 42.1 kg Body Mass Index (BMI) 15.4 Physical Exam Narrative General: Alert, unable to answer orientation questions, irritable, very thin HEENT: Atraumatic, normocephalic Eyes: Anicteric, normal conjunctiva, extraocular movements grossly intact, wouldnot follow finger, pupils equal Neck: Supple Respiratory: Clear to auscultation bilaterally, normal respiratory effort Cardiovascular: Regular rate and rhythm GI: Soft, nontender, nondistended Extremities: No edema Musculoskeletal: Moving all extremities, would not cooperate with exam Neuro: Has expressive aphasia, moving all extremities, facial movement symmetrical, not slurring words, would not cooperate with further exam Skin: No rashes appreciated Psych: Uncooperative Results Lab / Micro Data Result Diagrams: 08/16/22 12:45 08/16/22 12:45 Labs: Laboratory Results - last 24 hr 08/16/22 12:45: WBC 4.0 L, RBC 4.04 L, Hgb 13.3, Hct 38.4, MCV 95.0, MCH 32.9 H,MCHC 34.6, RDW Std Deviation 40.1, RDW Coeff of Bruna 11.5 L, Plt Count 177, MPV 10.1, Immature Gran % (Auto) 0.500, Neut % (Auto) 59.9, Lymph % (Auto) 24.2, [place] % (Auto) 12.7 H, Eos % (Auto) 1.5, Baso % (Auto) 1.2 H, Absolute Neuts (auto) 2.4, Absolute Lymphs (auto) 0.97, Nucleated RBC % 0 08/16/22 12:45: PT 13.4, INR 1.1, APTT 25.6 08/16/22 12:45: Sodium 127 L, Potassium 3.6, Chloride 89 L, Carbon Dioxide 30.0,Anion Gap 8, BUN 10, Creatinine 0.50 L, Estim Creat Clear Calc 30.81, Est GFR (MDRD) Af Amer 155, Est GFR (MDRD) Non-Af 128, BUN/Creatinine Ratio 20.2 H, Glucose 135 H, Calcium 8.8, Troponin I High Sens 8 08/16/22 12:45: Total Bilirubin 0.50, Direct Bilirubin 0.18, AST 29, ALT 39, Alkaline Phosphatase 64, Total Protein 6.6, Albumin 4.2, Globulin 2.4 08/16/22 13:30: Ammonia < 10.0 L 08/16/22 13:30: Lactic Acid 2.1 H* 08/16/22 13:40: Urine Color Yellow, Urine Clarity Clear, Urine pH 8.0, Ur Specific [place] 1.015, Urine Protein Negative, Urine Glucose (UA) Normal, UrineKetones Negative, Urine Occult Blood Negative, Urine Nitrite Negative, Urine Bilirubin Negative, Urine Urobilinogen Normal, Ur Leukocyte Esterase Negative, Urine RBC 0 SEEN, Urine WBC 0 SEEN, Ur Squamous Epith Cells 0 SEEN, Urine Bacteria 0 SEEN, Urine Mucus 0 SEEN Micro: Microbiology 08/16/22 13:30 Nasal Secretion SARS-CoV-2 & FLU Antigen (Rapid) - Final ABG Data ABG results: ABG 08/16/22 14:30 Specimen Type ART pH 7.41 Bicarbonate Actual 31.0 H Total CO2 33 Base Excess 6 H O2 Saturation 95 ABG pCO2 49.3 H ABG pO2 78 O2 Delivery Device Room Air Radiology Impression Brain CT 08/16/22 12:48 IMPRESSION: 1. No acute intracranial abnormality. 2. Senescent changes. Aspect score 10. Electronically Signed: Jordan Ivan MD at 13:00 EDT Reading Location ID and State: [facility] / [place] Tel , Service support , ADDENDUM: 08/16/22 1308 IMPRESSION: 1. No acute intracranial abnormality. 2. Senescent changes. Aspect score 10. N.B. : The above Results were Read Back by Jordan Ivan MD to Kalin Macedo DO, and understanding confirmed on 08/16/2022 13:01:59 (ET). Electronically Signed: Jordan Ivan MD at 13:00 EDT , Head/Neck CTA 08/16/22 12:48 IMPRESSION: Unremarkable CTA Head and Neck. Electronically Signed: Jordan Ivan MD at 13:10 EDT , ADDENDUM: 08/16/22 1322 IMPRESSION: Unremarkable CTA Head and Neck. N.B. : The above Results were Read Back by Jordan Ivan MD to Kalin Macedo DO, and understanding confirmed on 08/16/2022 13:15:30 (ET). Electronically Signed: Jordan Ivan MD at 13:10 EDT , Chest X-Ray 08/16/22 14:25 IMPRESSION: No acute cardiopulmonary disease. Electronically Signed: Jordan Ivan MD at 14:44 EDT , Assessment & Plan Assessment/Plan (1) Acute confusion: (2) Encephalopathy acute: PLAN: Plan #Acute encephalopathy/expressive aphasia/CVA r/o -Stroke: ED and reportedly was not a candidate for tenecteplase -CT head with chronic changes, CTA unremarkable -We will order MRI with pretreatment, if unable to tolerate this we will repeat CT at 24 hours -NIH every 4, permissive hypertension -We will check echocardiogram -A.m. lipid panel -Aspirin, statin -Ammonia within normal limits -We will check TSH, B12, folate, vitamin D -Check alcohol level and UDS -Has hyponatremia, unclear if acute or chronic, suspect mixed picture, is receiving gentle hydration and will order further work-up -VBG with slight elevation in CO2 -Significantly agitated, will give Risperdal twice daily and Ativan as as needed -PT/OT/speech eval's #Hyponatremia -Unclear if acute or chronic, suspect component of decreased solute with dehydration -We will order serum osmolality as well as urine studies and repeat BMP after gentle hydration #History of alcohol abuse -Check alcohol level -We will start thiamine and folate #Underweight /suspected malnutrition -BMI 15.4 and does have history of anorexia though family reports that this was fairly under control recently -[place] diet once swallow eval performed -Nutrition consult #Fall with hip pain -Will check xray #DVT ppx: Heparin subcu Aidee Rico MD Time spent in the patient's overall evaluation,decision-making process, review of diagnostic data, adjustment of management, discussion with other providers, nursing nursing and ancillary staff involved in patient's care documentation, 60minutes Charges/Coding Visit Charges Inpatient E&M: 64670 Init Hosp L2 08/16/22 1626 <Electronically signed by Aidee Rico MD> Cosigner Signature (if applicable): CC: Dr. Aidee Rico MD; Chata Barton DO~ Signed [facility] Work Phone: [phone]) [phone] Macedo [facility] August 16, 2022 3:49pm Note Date/Time August 16, 2022 2:2 1pm [facility] Medical Records Department [address] [place] [address] Emergency Department Summary 08/16/22 MR#: [id number] Acct: [id number] Name: NURSE,RADHA OBRIEN Rep #:[id number] : 1945 76 From: Kalin Gill PCP: Chata Barton DO Status:ADM I N Location: [address] History of Present Illness Chief Complaint: Stroke Alert Informant: spouse/S.O. Onset/Context/Timing Onset: Today Context: Sudden Onset Timing: Continuous Quality and Location: Positive for Expressive Aphasia Onset: 11 AM today Worsened by: Nothing Relieved by: Nothing Associated Symptoms Associated Symptoms: Negative for Headache, Nausea, Vomiting or Chest Pain Narrative Narrative: Patient presents with sudden onset of confusion that began today. states patient was acting normally at 11 AM. states that he left and came back home at approximately 11:15 AM. states that she was confused and would only answer thank youto his questions. states the patient had an episode of stool incontinence and she was weak in both legs. states she had difficulty standing. Upon arrival here, the patient was able to stand and pivot into a wheelchair. denies any unilateral weakness. Patient is confused and is a poor informant. Patient is only answers thank you to any questions. [facility] Medical History Anxiety Home Medications lorazepam 0.5 mg tablet (Ativan) 0.5 mg PO QHS PRN Anxiety 08/16/22 [History Last Taken Unknown] Allergy/AdvReac Type Severity Reaction Status Date / Time lactose [dairy lactose] AdvReac Food Verified 08/16/22 12:55 Allergy Surgical History Hx of hysterectomy Social History (Updated 08/16/22 @ 14:[address] Kalin Macedo, ) Smoking Status: Former smoker alcohol intake: former year quit: 2022 details: Recently quit drinking alcohol 2-3 weeks ago. ROS ROS ED ROS Narrative Review of systems was obtained from family. Constitutional Constitutional ED: Denies chills or fever(s) Eyes Eyes: Denies blurry vision or change in vision ENT ENT ED: Denies rhinorrhea or sore throat Cardiovascular Cardiovascular: Denies chest pain or palpitations Respiratory/Chest Respiratory/Chest: Denies cough or dyspnea Gastrointestinal Gastrointestinal: Denies nausea or vomiting Genitourinary Genitourinary ED: Denies dysuria or hematuria Musculoskeletal Musculoskeletal: Denies back pain or neck pain Integumentary Denies abscess or rash Neurologic Neurologic: Denies headache(s) or weakness Allergic/Immunologic Allergic/Immunologic ED: Denies mouth swelling or urticaria EXAM Physical Exam Const Vital Signs: 08/16/22 12:46 08/16/22 12:49 08/16/22 12:53 Temperature 97.2 F L Temperature Source Temporal Pulse Rate 70 70 Respiratory Rate 16 14 Blood Pressure 147/67 H 147/67 H Blood Pressure Mean 93 93 Pulse Ox 100 100 100 Oxygen Delivery Method Room Air Room Air Room Air Oxygen Flow Rate (L/min) 08/16/22 13:03 08/16/22 14:11 08/16/22 14:44 Temperature Temperature Source Pulse Rate 87 82 Respiratory Rate 17 16 Blood Pressure 145/74 H 127/68 H Blood Pressure Mean 97 87 Pulse Ox 99 98 81 Oxygen Delivery Method Room Air Room Air Oxygen Flow Rate (L/min) 08/16/22 14:44 Temperature Temperature Source Pulse Rate Respiratory Rate Blood Pressure Blood Pressure Mean Pulse Ox 98 Oxygen Delivery Method Nasal Cannula Oxygen Flow Rate (L/min) 2 Positive well nourished and well developed General Appearance ED: well developed and NAD HEENT Reports moist mucous membranes Eyes PERRL and EOMs intact bilaterally Neck supple and no JVD Chest Wall inspection of chest normal and palpation of chest normal Resp normal respiratory effort and clear to auscultation bilaterally Cardio Rate: regular rate Rhythm: regular rhythm GI normal to inspection, nondistended, normoactive bowel sounds, soft to palpation,non-tender and non-distended Neuro CN's II-XII intact bilaterally and no sensory deficits noted Og Coma Scale: document GCS findings Spontaneous Obeys Commands Confused 14 Sensorium / Orientation: alert, oriented to person and confused Speech: speech normal Motor Exam: strength 5/5 throughout NIHSS NIHSS Initial: 1a Level of Consciousness: 1 1b LOC Questions (Score 2 if aphasic/stupor): 1 1c LOC Commands (Only score 1st attempt): 1 2 Best Gaze (If aphasic, use reflexive mvmts.): 0 3 Visual: 0 4 Facial Palsy: 0 5 Motor Arm Right (UN = amputation/fusion): 0 5 Motor Arm Left: 0 6 Motor Leg Right: 0 6 Motor Leg Left: 0 8 Sensory (Aphasia/stupor=0 or 1, coma=2): 0 9 Best Language: 0 11 Extinction and Inattention (only scored if +): 0 Total Score: 3 MDM MDM MDM Narrative Medical decision making narrative: Due to the sudden onset of the confusion within the last 3 hours, stroke alert was called. Differential diagnosis includes stroke, intracranial bleeding, cardiac dysrhythmia, cardiac ischemia, electrolyte abnormality, renal failure, encephalopathy, infection, sepsis, and delirium tremens. CT scan of the brain will be obtained to assess for intracranial bleeding. CTA of the head and neck will be obtained to assess for large vessel occlusion and carotid stenosis. EKGwill be obtained to assess for cardiac dysrhythmia and cardiac ischemia. CBC will be obtained to assess for leukocytosis and anemia. Basic metabolic profilewill be obtained to assess for renal function and electrolyte abnormality. Hepatic profile will be obtained to assess for hepatic function. Ammonia level will be obtained to assess for hepatic encephalopathy. PT was INR and PTT will be obtained to assess for coagulopathy. High-sensitivity troponin will be obtained to assess for cardiac ischemia. Urinalysis will be obtained to assess for urinary tract infection and hematuria. COVID-19 rapid antigen will be obtained to assess for COVID infection. Influenza A and influenza B antigens will be obtained to assess for influenza infection. Arterial blood gas will be obtained to assess for hypercarbia. Lactic acid will be obtained to assess for sepsis. Lab Data Attestation: I reviewed the patient's lab results. Lab results narrative: CBC was reviewed. White blood cell count was slightly low at 4.0. The remainder was within normal limits. Basic metabolic profile was reviewed. Sodium was low at 127 and chloride was low at 89. Renal function was within normal limits. Glucose was normal at 135. High-sensitivity troponin was normalat 8. PT with INR and PTT were within normal limits. Hepatic profile was reviewed and was within normal limits. Serum ammonia level was reviewed and wasless than 10. Urinalysis was reviewed and does not show any evidence of urinarytract infection or hematuria. Lactate was reviewed and was slightly elevated at2.1. COVID-19 rapid antigen was reviewed and was negative. Influenza A and influenza B antigens were reviewed and were negative. Arterial blood gas was reviewed and shows a pH of 7.407, PCO2 of 49.3, PO2 of 77.5, bicarb of 31, and oxygen saturation of 95.2% on room air. Labs: Laboratory Results - last 24 hr 08/16/22 08/16/22 08/16/22 12:45 12:45 12:45 WBC 4.0 L RBC 4.04 L Hgb 13.3 Hct 38.4 MCV 95.0 MCH 32.9 H MCHC 34.6 RDW Std Deviation 40.1 RDW Coeff of Bruna 11.5 L Plt Count 177 MPV 10.1 Immature Gran % (Auto) 0.500 Neut % (Auto) 59.9 Lymph % (Auto) 24.2 [place] % (Auto) 12.7 H Eos % (Auto) 1.5 Baso % (Auto) 1.2 H Absolute Neuts (auto) 2.4 Absolute Lymphs (auto) 0.97 Nucleated RBC % 0 PT 13.4 INR 1.1 APTT 25.6 Sodium 127 L Potassium 3.6 Chloride 89 L Carbon Dioxide 30.0 Anion Gap 8 BUN 10 Creatinine 0.50 L Estim Creat Clear Calc 30.81 Est GFR (MDRD) Af Amer 155 Est GFR (MDRD) Non-Af 128 BUN/Creatinine Ratio 20.2 H Glucose 135 H Lactic Acid Calcium 8.8 Total Bilirubin Direct Bilirubin AST ALT Alkaline Phosphatase Ammonia Troponin I High Sens 8 Total Protein Albumin Globulin Urine Color Urine Clarity Urine pH Ur Specific [place] Urine Protein Urine Glucose (UA) Urine Ketones Urine Occult Blood Urine Nitrite Urine Bilirubin Urine Urobilinogen Ur Leukocyte Esterase Urine RBC Urine WBC Ur Squamous Epith Cells Urine Bacteria Urine Mucus 08/16/22 08/16/22 08/16/22 12:45 13:30 13:30 WBC RBC Hgb Hct MCV MCH MCHC RDW Std Deviation RDW Coeff of Bruna Plt Count MPV Immature Gran % (Auto) Neut % (Auto) Lymph % (Auto) [place] % (Auto) Eos % (Auto) Baso % (Auto) Absolute Neuts (auto) Absolute Lymphs (auto) Nucleated RBC % PT INR APTT Sodium Potassium Chloride Carbon Dioxide Anion Gap BUN Creatinine Estim Creat Clear Calc Est GFR (MDRD) Af Amer Est GFR (MDRD) Non-Af BUN/Creatinine Ratio Glucose Lactic Acid 2.1 H* Calcium Total Bilirubin 0.50 Direct Bilirubin 0.18 AST 29 ALT 39 Alkaline Phosphatase 64 Ammonia < 10.0 L Troponin I High Sens Total Protein 6.6 Albumin 4.2 Globulin 2.4 Urine Color Urine Clarity Urine pH Ur Specific [place] Urine Protein Urine Glucose (UA) Urine Ketones Urine Occult Blood Urine Nitrite Urine Bilirubin Urine Urobilinogen Ur Leukocyte Esterase Urine RBC Urine WBC Ur Squamous Epith Cells Urine Bacteria Urine Mucus 08/16/22 13:40 WBC RBC Hgb Hct MCV MCH MCHC RDW Std Deviation RDW Coeff of Bruna Plt Count MPV Immature Gran % (Auto) Neut % (Auto) Lymph % (Auto) [place] % (Auto) Eos % (Auto) Baso % (Auto) Absolute Neuts (auto) Absolute Lymphs (auto) Nucleated RBC % PT INR APTT Sodium Potassium Chloride Carbon Dioxide Anion Gap BUN Creatinine Estim Creat Clear Calc Est GFR (MDRD) Af Amer Est GFR (MDRD) Non-Af BUN/Creatinine Ratio Glucose Lactic Acid Calcium Total Bilirubin Direct Bilirubin AST ALT Alkaline Phosphatase Ammonia Troponin I High Sens Total Protein Albumin Globulin Urine Color Yellow Urine Clarity Clear Urine pH 8.0 Ur Specific [place] 1.015 Urine Protein Negative Urine Glucose (UA) Normal Urine Ketones Negative Urine Occult Blood Negative Urine Nitrite Negative Urine Bilirubin Negative Urine Urobilinogen Normal Ur Leukocyte Esterase Negative Urine RBC 0 SEEN Urine WBC 0 SEEN Ur Squamous Epith Cells 0 SEEN Urine Bacteria 0 SEEN Urine Mucus 0 SEEN ABG Data ABG results: ABG 08/16/22 14:30 Specimen Type ART pH 7.41 Bicarbonate Actual 31.0 H Total CO2 33 Base Excess 6 H O2 Saturation 95 ABG pCO2 49.3 H ABG pO2 78 O2 Delivery Device Room Air Radiography Chest X-Ray - ED: 1 View, Read by ED Physician, Read by Radiologist and No AcuteDisease Diagnostic Testing: Clinical Impression(s) from Imaging Studies Brain CT 08/16/22 12:48 IMPRESSION: 1. No acute intracranial abnormality. 2. Senescent changes. Aspect score 10. Electronically Signed: Jordan Ivan MD at 13:00 EDT , ADDENDUM: 08/16/22 1308 IMPRESSION: 1. No acute intracranial abnormality. 2. Senescent changes. Aspect score 10. N.B. : The above Results were Read Back by Jordan Ivan MD to Kalin Macedo DO, and understanding confirmed on 08/16/2022 13:01:59 (ET). Electronically Signed: Jordan Ivan MD at 13:00 EDT , Head/Neck CTA 08/16/22 12:48 IMPRESSION: Unremarkable CTA Head and Neck. Electronically Signed: Jordan Ivan MD at 13:10 EDT Reading Location ID and State: [facility] / [place] Tel , Service support , ADDENDUM: 08/16/22 1322 IMPRESSION: Unremarkable CTA Head and Neck. N.B. : The above Results were Read Back by Jordan Ivan MD to Kalin Macedo DO, and understanding confirmed on 08/16/2022 13:15:30 (ET). Electronically Signed: Jordan Ivan MD at 13:10 EDT , Chest X-Ray 08/16/22 14:25 IMPRESSION: No acute cardiopulmonary disease. Electronically Signed: Jordan Ivan MD at 14:44 EDT , CT scan of the brain was obtained. There is no acute intracranial abnormality. This was interpreted by the radiologist and was also independently reviewed by myself. CTA of the head and neck was obtained. There is no evidence of large vessel occlusion. There is no evidence of carotid or vertebral stenosis. This was interpreted by the radiologist and was also independently reviewed by myself. Portable 1 view chest x-ray was obtained. On my independent interpretation, lung marsh are clear. There is normal cardiac silhouette. Bony thorax is normal. There is no acute process noted. Radiologist also interpreted the x-ray and agrees. EKG Initial EKG: Attestation: I personally reviewed and interpreted this EKG as follows: Interpretation: Sinus Rhythm (78) and No Acute Injury Pattern Comments: EKG was obtained. On my independent interpretation, it showed anormal sinus rhythm with a rate of 78. RI interval, QRS interval, and QTc intervals were all normal. There is left axis deviation at -76. There are no acute ST or T wave changes. Prior EKG tracings: not available for review Prior: No Prior Management Discussion w/another healthcare provider: Hospitalist, Flour Worker (Stroke neurologist) and Radiologist Treatment and Re-Evaluation Narrative: Case was discussed with the stroke neurologist Dr. Jo. He felt that this was not an acute stroke and did not recommend any thrombolytics. He felt that the patient could be admitted here and work-up for encephalopathy. He did also recommend obtaining a follow-up MRI. Patient was given IV fluids. Patient was given a dose of Ativan for her agitation. Patient was also given a dose of thiamine and folate for possible Warnicke's encephalopathy since she just recently stopped ranking alcohol 3 weeks ago. Patient is still confused on reevaluation. Patient was given a repeat dose of Ativan. Case was discussed with the hospitalist, Dr. Rico. She will admit the patient to PCU. Family understands and is agreeable with the plan. All questions were answered. Critical Care Time Critical Care Time: Yes Critical care time (excluding procedures): 30-74 minutes (37), Including time spent:, Discussing w/Patient &/or Family/Green Chain Worker, Discussing w/Consultants, Arranging Admission or Transfer and Performing Direct Patient Care at Bedside Discharge Plan Dx/Rx/DC Orders Clinical Impression: Acute confusion, Encephalopathy acute Disposition Disposition: Acute Care Hospital [facility] What to do if you have Problems For any increased pain, shortness of breath, bleeding, nausea or vomiting, chestpain, or any unexpected problems, contact your Primary Care Provider. Call [facility] ([phone]) or report to the closest Emergency Room. Call 911 if necessary. 08/16/22 154 <Electronically signed by Kalin Macedo DO> Cosigner Signature (if applicable): CC: Chata Barton DO ~ Signed [facility] Work Phone: [phone] 382-474603-13-[address] Macedo [facility] August 16, 2022 3:49pm Note Date/Time August 16, 2022 2:2 1pm [facility] Medical Records Department [address] [place] [id number] Emergency Department Summary 08/16/22 MR#: [id number] Acct: [id number] Name: NURSE,RADHA OBRIEN Rep #:[id number] : 1945 76 From: Kalin Gill PCP: Chata Barton DO Status:ADM I N Location: [place] [address] HPI History of Present Illness Chief Complaint: Stroke Alert Informant: spouse/S.O. Onset/Context/Timing Onset: Today Context: Sudden Onset Timing: Continuous Quality and Location: Positive for Expressive Aphasia Onset: 11 AM today Worsened by: Nothing Relieved by: Nothing Associated Symptoms Associated Symptoms: Negative for Headache, Nausea, Vomiting or Chest Pain Narrative Narrative: Patient presents with sudden onset of confusion that began today. states patient was acting normally at 11 AM. states that he left and came back home at approximately 11:15 AM. states that she was confused and would only answer thank youto his questions. states the patient had an episode of stool incontinence and she was weak in both legs. states she had difficulty standing. Upon arrival here, the patient was able to stand and pivot into a wheelchair. denies any unilateral weakness. Patient is confused and is a poor informant. Patient is only answers thank you to any questions. [facility] Medical History Anxiety Home Medications lorazepam 0.5 mg tablet (Ativan) 0.5 mg PO QHS PRN Anxiety 08/16/22 [History Last Taken Unknown] Allergy/AdvReac Type Severity Reaction Status Date / Time lactose [dairy lactose] AdvReac Food Verified 08/16/22 12:55 Allergy Surgical History Hx of hysterectomy Social History (Updated 08/16/22 @ 14:[address] Kalin Macedo DO) Smoking Status: Former smoker alcohol intake: former year quit: 2022 details: Recently quit drinking alcohol 2-3 weeks ago. ROS ROS ED ROS Narrative Review of systems was obtained from family. Constitutional Constitutional ED: Denies chills or fever(s) Eyes Eyes: Denies blurry vision or change in vision ENT ENT ED: Denies rhinorrhea or sore throat Cardiovascular Cardiovascular: Denies chest pain or palpitations Respiratory/Chest Respiratory/Chest: Denies cough or dyspnea Gastrointestinal Gastrointestinal: Denies nausea or vomiting Genitourinary Genitourinary ED: Denies dysuria or hematuria Musculoskeletal Musculoskeletal: Denies back pain or neck pain Integumentary Denies abscess or rash Neurologic Neurologic: Denies headache(s) or weakness Allergic/Immunologic Allergic/Immunologic ED: Denies mouth swelling or urticaria EXAM Physical Exam Const Vital Signs: 08/16/22 12:46 08/16/22 12:49 08/16/22 12:53 Temperature 97.2 F L Temperature Source Temporal Pulse Rate 70 70 Respiratory Rate 16 14 Blood Pressure 147/67 H 147/67 H Blood Pressure Mean 93 93 Pulse Ox 100 100 100 Oxygen Delivery Method Room Air Room Air Room Air Oxygen Flow Rate (L/min) 08/16/22 13:03 08/16/22 14:11 08/16/22 14:44 Temperature Temperature Source Pulse Rate 87 82 Respiratory Rate 17 16 Blood Pressure 145/74 H 127/68 H Blood Pressure Mean 97 87 Pulse Ox 99 98 81 Oxygen Delivery Method Room Air Room Air Oxygen Flow Rate (L/min) 08/16/22 14:44 Temperature Temperature Source Pulse Rate Respiratory Rate Blood Pressure Blood Pressure Mean Pulse Ox 98 Oxygen Delivery Method Nasal Cannula Oxygen Flow Rate (L/min) 2 Positive well nourished and well developed General Appearance ED: well developed and NAD HEENT Reports moist mucous membranes Eyes PERRL and EOMs intact bilaterally Neck supple and no JVD Chest Wall inspection of chest normal and palpation of chest normal Resp normal respiratory effort and clear to auscultation bilaterally Cardio Rate: regular rate Rhythm: regular rhythm GI normal to inspection, nondistended, normoactive bowel sounds, soft to palpation,non-tender and non-distended Neuro CN's II-XII intact bilaterally and no sensory deficits noted Og Coma Scale: document GCS findings Spontaneous Obeys Commands Confused 14 Sensorium / Orientation: alert, oriented to person and confused Speech: speech normal Motor Exam: strength 5/5 throughout NIHSS NIHSS Initial: 1a Level of Consciousness: 1 1b LOC Questions (Score 2 if aphasic/stupor): 1 1c LOC Commands (Only score 1st attempt): 1 2 Best Gaze (If aphasic, use reflexive mvmts.): 0 3 Visual: 0 4 Facial Palsy: 0 5 Motor Arm Right (UN = amputation/fusion): 0 5 Motor Arm Left: 0 6 Motor Leg Right: 0 6 Motor Leg Left: 0 8 Sensory (Aphasia/stupor=0 or 1, coma=2): 0 9 Best Language: 0 11 Extinction and Inattention (only scored if +): 0 Total Score: 3 MDM MDM MDM Narrative Medical decision making narrative: Due to the sudden onset of the confusion within the last 3 hours, stroke alert was called. Differential diagnosis includes stroke, intracranial bleeding, cardiac dysrhythmia, cardiac ischemia, electrolyte abnormality, renal failure, encephalopathy, infection, sepsis, and delirium tremens. CT scan of the brain will be obtained to assess for intracranial bleeding. CTA of the head and neck will be obtained to assess for large vessel occlusion and carotid stenosis. EKGwill be obtained to assess for cardiac dysrhythmia and cardiac ischemia. CBC will be obtained to assess for leukocytosis and anemia. Basic metabolic profilewill be obtained to assess for renal function and electrolyte abnormality. Hepatic profile will be obtained to assess for hepatic function. Ammonia level will be obtained to assess for hepatic encephalopathy. PT was INR and PTT will be obtained to assess for coagulopathy. High-sensitivity troponin will be obtained to assess for cardiac ischemia. Urinalysis will be obtained to assess for urinary tract infection and hematuria. COVID-19 rapid antigen will be obtained to assess for COVID infection. Influenza A and influenza B antigens will be obtained to assess for influenza infection. Arterial blood gas will be obtained to assess for hypercarbia. Lactic acid will be obtained to assess for sepsis. Lab Data Attestation: I reviewed the patient's lab results. Lab results narrative: CBC was reviewed. White blood cell count was slightly low at 4.0. The remainder was within normal limits. Basic metabolic profile was reviewed. Sodium was low at 127 and chloride was low at 89. Renal function was within normal limits. Glucose was normal at 135. High-sensitivity troponin was normalat 8. PT with INR and PTT were within normal limits. Hepatic profile was reviewed and was within normal limits. Serum ammonia level was reviewed and wasless than 10. Urinalysis was reviewed and does not show any evidence of urinarytract infection or hematuria. Lactate was reviewed and was slightly elevated at2.1. COVID-19 rapid antigen was reviewed and was negative. Influenza A and influenza B antigens were reviewed and were negative. Arterial blood gas was reviewed and shows a pH of 7.407, PCO2 of 49.3, PO2 of 77.5, bicarb of 31, and oxygen saturation of 95.2% on room air. Labs: Laboratory Results - last 24 hr 08/16/22 08/16/22 08/16/22 12:45 12:45 12:45 WBC 4.0 L RBC 4.04 L Hgb 13.3 Hct 38.4 MCV 95.0 MCH 32.9 H MCHC 34.6 RDW Std Deviation 40.1 RDW Coeff of Bruna 11.5 L Plt Count 177 MPV 10.1 Immature Gran % (Auto) 0.500 Neut % (Auto) 59.9 Lymph % (Auto) 24.2 [place] % (Auto) 12.7 H Eos % (Auto) 1.5 Baso % (Auto) 1.2 H Absolute Neuts (auto) 2.4 Absolute Lymphs (auto) 0.97 Nucleated RBC % 0 PT 13.4 INR 1.1 APTT 25.6 Sodium 127 L Potassium 3.6 Chloride 89 L Carbon Dioxide 30.0 Anion Gap 8 BUN 10 Creatinine 0.50 L Estim Creat Clear Calc 30.81 Est GFR (MDRD) Af Amer 155 Est GFR (MDRD) Non-Af 128 BUN/Creatinine Ratio 20.2 H Glucose 135 H Lactic Acid Calcium 8.8 Total Bilirubin Direct Bilirubin AST ALT Alkaline Phosphatase Ammonia Troponin I High Sens 8 Total Protein Albumin Globulin Urine Color Urine Clarity Urine pH Ur Specific [place] Urine Protein Urine Glucose (UA) Urine Ketones Urine Occult Blood Urine Nitrite Urine Bilirubin Urine Urobilinogen Ur Leukocyte Esterase Urine RBC Urine WBC Ur Squamous Epith Cells Urine Bacteria Urine Mucus 08/16/22 08/16/22 08/16/22 12:45 13:30 13:30 WBC RBC Hgb Hct MCV MCH MCHC RDW Std Deviation RDW Coeff of Bruna Plt Count MPV Immature Gran % (Auto) Neut % (Auto) Lymph % (Auto) [place] % (Auto) Eos % (Auto) Baso % (Auto) Absolute Neuts (auto) Absolute Lymphs (auto) Nucleated RBC % PT INR APTT Sodium Potassium Chloride Carbon Dioxide Anion Gap BUN Creatinine Estim Creat Clear Calc Est GFR (MDRD) Af Amer Est GFR (MDRD) Non-Af BUN/Creatinine Ratio Glucose Lactic Acid 2.1 H* Calcium Total Bilirubin 0.50 Direct Bilirubin 0.18 AST 29 ALT 39 Alkaline Phosphatase 64 Ammonia < 10.0 L Troponin I High Sens Total Protein 6.6 Albumin 4.2 Globulin 2.4 Urine Color Urine Clarity Urine pH Ur Specific [place] Urine Protein Urine Glucose (UA) Urine Ketones Urine Occult Blood Urine Nitrite Urine Bilirubin Urine Urobilinogen Ur Leukocyte Esterase Urine RBC Urine WBC Ur Squamous Epith Cells Urine Bacteria Urine Mucus 08/16/22 13:40 WBC RBC Hgb Hct MCV MCH MCHC RDW Std Deviation RDW Coeff of Bruna Plt Count MPV Immature Gran % (Auto) Neut % (Auto) Lymph % (Auto) [place] % (Auto) Eos % (Auto) Baso % (Auto) Absolute Neuts (auto) Absolute Lymphs (auto) Nucleated RBC % PT INR APTT Sodium Potassium Chloride Carbon Dioxide Anion Gap BUN Creatinine Estim Creat Clear Calc Est GFR (MDRD) Af Amer Est GFR (MDRD) Non-Af BUN/Creatinine Ratio Glucose Lactic Acid Calcium Total Bilirubin Direct Bilirubin AST ALT Alkaline Phosphatase Ammonia Troponin I High Sens Total Protein Albumin Globulin Urine Color Yellow Urine Clarity Clear Urine pH 8.0 Ur Specific [place] 1.015 Urine Protein Negative Urine Glucose (UA) Normal Urine Ketones Negative Urine Occult Blood Negative Urine Nitrite Negative Urine Bilirubin Negative Urine Urobilinogen Normal Ur Leukocyte Esterase Negative Urine RBC 0 SEEN Urine WBC 0 SEEN Ur Squamous Epith Cells 0 SEEN Urine Bacteria 0 SEEN Urine Mucus 0 SEEN ABG Data ABG results: ABG 08/16/22 14:30 Specimen Type ART pH 7.41 Bicarbonate Actual 31.0 H Total CO2 33 Base Excess 6 H O2 Saturation 95 ABG pCO2 49.3 H ABG pO2 78 O2 Delivery Device Room Air Radiography Chest X-Ray - ED: 1 View, Read by ED Physician, Read by Radiologist and No AcuteDisease Diagnostic Testing: Clinical Impression(s) from Imaging Studies Brain CT 08/16/22 12:48 IMPRESSION: 1. No acute intracranial abnormality. 2. Senescent changes. Aspect score 10. Electronically Signed: Jordan Ivan MD at 13:00 EDT , ADDENDUM: 08/16/22 1308 IMPRESSION: 1. No acute intracranial abnormality. 2. Senescent changes. Aspect score 10. N.B. : The above Results were Read Back by Jordan Ivan MD to Kalin Macedo DO, and understanding confirmed on 08/16/2022 13:01:59 (ET). Electronically Signed: Jordan Ivan MD at 13:00 EDT , Head/Neck CTA 08/16/22 12:48 IMPRESSION: Unremarkable CTA Head and Neck. Electronically Signed: Jordan Ivan MD at 13:10 EDT , ADDENDUM: 08/16/22 1322 IMPRESSION: Unremarkable CTA Head and Neck. N.B. : The above Results were Read Back by Jordan Ivan MD to Kalin Macedo DO, and understanding confirmed on 08/16/2022 13:15:30 (ET). Electronically Signed: Jordan Ivan MD at 13:10 EDT , Chest X-Ray 08/16/22 14:25 IMPRESSION: No acute cardiopulmonary disease. Electronically Signed: Jordan Ivan MD at 14:44 EDT , CT scan of the brain was obtained. There is no acute intracranial abnormality. This was interpreted by the radiologist and was also independently reviewed by myself. CTA of the head and neck was obtained. There is no evidence of large vessel occlusion. There is no evidence of carotid or vertebral stenosis. This was interpreted by the radiologist and was also independently reviewed by myself. Portable 1 view chest x-ray was obtained. On my independent interpretation, lung marsh are clear. There is normal cardiac silhouette. Bony thorax is normal. There is no acute process noted. Radiologist also interpreted the x-ray and agrees. EKG Initial EKG: Attestation: I personally reviewed and interpreted this EKG as follows: Interpretation: Sinus Rhythm (78) and No Acute Injury Pattern Comments: EKG was obtained. On my independent interpretation, it showed anormal sinus rhythm with a rate of 78. RI interval, QRS interval, and QTc intervals were all normal. There is left axis deviation at -76. There are no acute ST or T wave changes. Prior EKG tracings: not available for review Prior: No Prior Management Discussion w/another healthcare provider: Hospitalist, Flour Worker (Stroke neurologist) and Radiologist Treatment and Re-Evaluation Narrative: Case was discussed with the stroke neurologist Dr. Jo. He felt that this was not an acute stroke and did not recommend any thrombolytics. He felt that the patient could be admitted here and work-up for encephalopathy. He did also recommend obtaining a follow-up MRI. Patient was given IV fluids. Patient was given a dose of Ativan for her agitation. Patient was also given a dose of thiamine and folate for possible Warnicke's encephalopathy since she just recently stopped ranking alcohol 3 weeks ago. Patient is still confused on reevaluation. Patient was given a repeat dose of Ativan. Case was discussed with the hospitalist, Dr. Rico. She will admit the patient to PCU. Family understands and is agreeable with the plan. All questions were answered. Critical Care Time Critical Care Time: Yes Critical care time (excluding procedures): 30-74 minutes (37), Including time spent:, Discussing w/Patient &/or Family/Green Chain Worker, Discussing w/Consultants, Arranging Admission or Transfer and Performing Direct Patient Care at Bedside Discharge Plan Dx/Rx/DC Orders Clinical Impression: Acute confusion, Encephalopathy acute Disposition Disposition: Acute Care Hospital [facility] What to do if you have Problems For any increased pain, shortness of breath, bleeding, nausea or vomiting, chestpain, or any unexpected problems, contact your Primary Care Provider. Call [facility] ([phone]) or report to the closest Emergency Room. Call 911 if necessary. 08/16/22 7110 <Electronically signed by Kalin Macedo DO> Cosigner Signature (if applicable): CC: Chata Barton DO ~ Signed [facility] Work Phone: 1(188) 451-647111-28-2022 NoteHNO ID: [id number] Author: Kailee Mata, SHAYNA Service: ? Author Type: Physical Therapist Type: Progress Notes Filed: 05/03/2022 4:31 PM Note Text: Episode Visit Count: 9 Therapist That Will Accept/Oversee The Plan Of Care: Kailee Mata Start of Care Date: 03/08/22 Onset Date: 12/25/21 (end december) Plan of Care Certification Date: 03/08/22 Next Certification Due Date: 05/08/22 Patient Identified by Name and Date of : Yes REHABILITATION AND SPORTS THERAPY PHYSICAL THERAPY DISCONTINUANCE OF CARE PLAN OF CARE UPDATE: Assessment: Radha Abad is discontinued from Physical Therapy services due to goal achievement.. Patient was seen for 9 visits from Start of Care Date: 03/08/22 to 05/03/2022 and treatment included: Therapeutic exercise, Neuromuscular re-education, Manual therapy, and Gait training. Goals for Episode of Care: created on 03/08/22 through 05/08/22 Goals updated on 05/03/2022. [place] in home exercise program. (Met) Patient will decrease pain rating by 2 points to meet minimal clinical important difference for numeric pain rating scale. (Met) Patient will increase active ROM of L hip to symmetrical to allow pt to to improve postural alignment, to improve performance of ADLs, and to improve gait mechanics / gait pattern . (Met) Patient will demonstrate increase in L hip and core/trunk strength to 4+ to 5/5 during manual muscle testing in order to improve function for home management tasks, prior functional tasks, and to decrease pain. (Met) Patient will increase flexibility of L hamstrings to 60 degrees to improve mechanics and decrease pain. (Met) Perform stairs, inclines and household activities with decreased report of symptoms/pain in 4-8 weeks. (Met) Normal gait. (Met) Reciprocal stair negotiation. (Met) Patient Goals: To decrease/eliminate the pain. SUBJECTIVE: Patient Reason for Visit: Pt rpeorting she is very pleased wtih her progress and is motivated to continue independently with her HEP. Pain: Pain Pain Level: 0 Pain Location: Hip - Left Post Treatment Pain Post Treatment Pain Level: 0 Post Treatment Pain Location: Thigh - Left;Hip - Left PROMIS Scales Higher is Better 03/28/2022 04/05/2022 05/02/2022 Phys Func - Score - - 48 (within normal limits) Phys Func - Percentile - - 42 % Social Roles - Score 48 (within normal limits) - - Social Role - Percentile 42 % - - GH Physical - Score - - 50.8 (Very Good) GH Physical - Percentile - - 53 % GH Mental - Score - - 43.5 (Good) GH Mental - Percentile - - 26 % Self-Eff Symptom - Score - 49 (Average) 48 (Average) Self-Eff Symptom - Percentile - 46 % 42 % T-scores: mean of general population = 50. 5 points is clinically meaningfully difference Percentiles provide an indication of how the patient's score ranks in relation to the general population. Higher percentile rankings indicate better function/quality of life. 50th percentile is the average of the general population and indicates half of respondents had a worse score. Lower is Better 02/22/2022 03/28/2022 Fatigue - Score 59 (mild) 57 (mild) Fatigue - Percentile 18 % 24 % T-scores: mean of general population = 50. 5 points is clinically meaningfully difference Percentiles provide an indication of how the patient's score ranks in relation to the general population. Higher percentile rankings indicate better function/quality of life. 50th percentile is the average of the general population and indicates half of respondents had a worse score. OBJECTIVE MEASURES WITH LEVEL OF FUNCTION: Posture / Alignment Lumbo - Pelvic Alignment: symmetrical LE Flexibility R SLR Flexibility: 70 deg, HS stretch L SLR Flexibility: 70 deg, HS stretch Flexibility Comments: SKC: WNL, symmetrical; Hip IR/ER: symmetrical B LE Strength L Hip Flexion (L2): 5/5 L Hip ABduction: 5/5 L Hip ADduction: 5/5 TREATMENT: Therapeutic Exercise: 1: Standing hip adduction with OTB B 2x 10ea 2: Standing hip abduction with OTB 2x10 B 3: Standing hip extension with OTB 2x10 B 4: Standing hip flexion with OTB 2x10 B 5: Reviewed current HEP. 6: *bridging 2 x 10 7: *mini squats at chair 2 x 10 8: Discussed pt's plans to resume her daily walking both out of doors and in her home on the treadmill. Skilled Intervention: Patient was educated in proper exercise technique and purpose for exercises. Reviewed and educated patient on additions/changes for home exercise program as above (*). Skilled judgment was provided in selection of appropriate interventions. Provided written instruction for home exercise program to facilitate proper performance and compliance. Correct performance of therapeutic exercises was facilitated with verbal and visual cuing. Additional time necessary for objective measurements and reassessment due to plan of care update/discharge. Patient education as noted. 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 Goals for Episode of Care: created on 03/08/22 through 05/08/22 Goals updated on 05/03/2022. [place] in home exercise program. (Met) Patient will decrease pain rating by 2 points to meet minimal clinical important difference for numeric pain rating scale. (Met) Patient will increase active ROM of L hip to symmetrical to allow pt to to improve postural alignment, to improve performance of ADLs, and to improve gait mechanics / gait pattern . (Met) Patient will demonstrate increase in L hip and core/trunk strength to 4+ to 5/5 during manual muscle testing in order to improve function for home management tasks, prior functional tasks, and to decrease pain. (Met) Patient will increase flexibility of L hamstrings to 60 degrees to improve mechanics and decrease pain. (Met) Perform stairs, inclines and household activities with decreased report of symptoms/pain in 4-8 weeks. (Met) Normal gait. (Met) Reciprocal stair negotiation. (Met) Patient Goals: To decrease/eliminate the pain. SUBJECTIVE: Patient Reason for Visit: Pt rpeorting she is very pleased wtih her progress and is motivated to continue independently with her HEP. Pain: Pain Pain Level: 0 Pain Location: Hip - Left Post Treatment Pain Post Treatment Pain Level: 0 Post Treatment Pain Location: Thigh - Left;Hip - Left PROMIS Scales Higher is Better 03/28/2022 04/05/2022 05/02/2022 Phys Func - Score - - 48 (within normal limits) Phys Func - Percentile - - 42 % Social Roles - Score 48 (within normal limits) - - Social Role - Percentile 42 % - - GH Physical - Score - - 50.8 (Very Good) GH Physical - Percentile - - 53 % GH Mental - Score - - 43.5 (Good) GH Mental - Percentile - - 26 % Self-Eff Symptom - Score - 49 (Average) 48 (Average) Self-Eff Symptom - Percentile - 46 % 42 % T-scores: mean of general population = 50. 5 points is clinically meaningfully difference Percentiles provide an indication of how the patient's score ranks in relation to the general population. Higher percentile rankings indicate better function/quality of life. 50th percentile is the average of the general population and indicates half of respondents had a worse score. Lower is Better 02/22/2022 03/28/2022 Fatigue - Score 59 (mild) 57 (mild) Fatigue - Percentile 18 % 24 % T-scores: mean of general population = 50. 5 points is clinically meaningfully difference Percentiles provide an indication of how the patient's score ranks in relation to the general population. Higher percentile rankings indicate better function/quality of life. 50th percentile is the average of the general population and indicates half of respondents had a worse score. OBJECTIVE MEASURES WITH LEVEL OF FUNCTION: Posture / Alignment Lumbo - Pelvic Alignment: symmetrical LE Flexibility R SLR Flexibility: 70 deg, HS stretch L SLR Flexibility: 70 deg, HS stretch Flexibility Comments: SKC: WNL, symmetrical; Hip IR/ER: symmetrical B LE Strength L Hip Flexion (L2): 5/5 L Hip ABduction: 5/5 L Hip ADduction: 5/5 TREATMENT: Therapeutic Exercise: 1: Standing hip adduction with OTB B 2x 10ea 2: Standing hip abduction with OTB 2x10 B 3: Standing hip extension with OTB 2x10 B 4: Standing hip flexion with OTB 2x10 B 5: Reviewed current HEP. 6: *bridging 2 x 10 7: *mini squats at chair 2 x 10 8: Discussed pt's plans to resume her daily walking both out of doors and in her home on the treadmill. Skilled Intervention: Patient was educated in proper exercise technique and purpose for exercises. Reviewed and educated patient on additions/changes for home exercise program as above (*). Skilled judgment was provided in selection of appropriate interventions. Provided written instruction for home exercise program to facilitate proper performance and compliance. Correct performance of therapeutic exercises was facilitated with verbal and visual cuing. Additional time necessary for objective measurements and reassessment due to plan of care update/discharge. Patient education as noted. Billing Therapeutic Exercise Treatment Minutes: 45 Total Treatment Time Minutes (timed/untimed): 45 Kailee Mata PT [facility] NoteHNO ID: [id number] Author: Kailee Mata PT Service: ? 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 She demonstrated a challenge with standing hip alphabet stabilization. The patient will continue to benefit from ongoing skilled physical therapy to progress toward set goals. PLAN FOR NEXT VISIT: SUBJECTIVE: Patient Reason for Visit: Pt states that almost all of her problems in her hip that she has been experiencing is almost 100%. Pain: Pain Pain Level: 0 Pain Location: Hip - Left;Groin - Left Post Treatment Pain Post Treatment Pain Level: 0 Post Treatment Pain Location: Thigh - Left;Hip - Left OBJECTIVE MEASURES WITH LEVEL OF FUNCTION: Increased fatigue noted with standing hip exercises with OTB. TREATMENT: Therapeutic Exercise: 1: *R sidelying L hip abduction 0-50% x10 2: *R sidelying L hip 50%-100% x10 3: *R sidelying L hip hike x 10 4: R sidelying L hip circles x 5 each (irritating) 5: *Standing hip adduction with OTB B 6: *Standing hip abduction with OTB x10 B 7: *Standing hip flexion with OTB x10 B 8: *Standing hip stabililization A-Z x 1 B Skilled Intervention: Patient was educated in proper exercise technique and purpose for exercises. Reviewed and educated patient on additions/changes for home exercise program as above (*). Skilled judgment was provided in selection of appropriate interventions. Provided written instruction for home exercise program to facilitate proper performance and compliance. Correct performance of therapeutic exercises was facilitated with verbal and visual cuing. Billing Therapeutic Exercise Treatment Minutes: 54 Total Treatment Time Minutes (timed/untimed): 54 Nia Wolferebekah, [employer] ENGINE[employer] Kailee Mata, [facility]11-21-2022 History of Present illness Narrative* Kailee Mata, PT - 04/26/2022 2:47 PM EST Episode Visit Count: 8 Therapist That Will Accept/Oversee The Plan Of Care: Kailee Mata Start of Care Date: 03/08/22 Onset Date: 12/25/21 (end december) Plan of Care Certification Date: 03/08/22 Next Certification Due Date: 05/08/22 Patient Identified by Name and Date of : Yes REHABILITATION AND SPORTS THERAPY PHYSICAL THERAPY TREATMENT NOTE ASSESSMENT: 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 She demonstrated a challenge with standing hip alphabet stabilization. The patient will continue to benefitfrom ongoing skilled physical therapy to progress toward set goals. PLAN FOR NEXT VISIT: SUBJECTIVE: Patient Reason for Visit: Pt states that almost all of her problems in her hip that shehas been experiencing is almost 100%. Pain: Pain Pain Level: 0 Pain Location: Hip - Left;Groin - Left Post Treatment Pain Post Treatment Pain Level: 0 Post Treatment Pain Location: Thigh - Left;Hip - Left OBJECTIVE MEASURES WITH LEVEL OF FUNCTION: Increased fatigue noted with standing hip exercises with OTB. TREATMENT: Therapeutic Exercise: 1: *R sidelying L hip abduction 0-50% x10 2: *R sidelying L hip 50%-100% x10 3: *R sidelying L hip hike x 10 4: R sidelying L hip circles x 5 each (irritating) 5: *Standing hip adduction with OTB B 6: *Standing hip abduction with OTB x10 B 7: *Standing hip flexion with OTB x10 B 8: *Standing hip stabililization A-Z x 1 B Skilled Intervention: Patient was educated in proper exercise technique and purpose for exercises. Reviewed and educated patient on additions/changes for home exercise program as above (*). Skilled judgment was provided in selection of appropriate interventions. Provided written instruction for home exercise program to facilitate proper performance and compliance. Correct performance of therapeutic exercises was facilitated with verbal and visual cuing. Billing Therapeutic Exercise Treatment Minutes: 54 Total Treatment Time Minutes (timed/untimed): 54 Nia Wolferebekah, LUCA Kailee Lemon, PT documented [facility]22 NoteHNO ID: [id number] Author: Alistair Everett PT Service: ? 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 She demonstrated difficulty with L sidelying hip series. The patient will continue to benefit from ongoing skilled physical therapy to progress toward set goals. PLAN FOR NEXT VISIT: Work on core strengthening and balance SUBJECTIVE: Patient Reason for Visit: Pt states that balancing on one leg with UE support. Pt is able to stand on LLE longer than RLE. Pt is very pleased with progress thus far. Pain: Pain Pain Level: 0 Pain Location: Hip - Left;Groin - Left OBJECTIVE MEASURES WITH LEVEL OF FUNCTION: Pt easily fatigued with L hip series in R sidelying. TREATMENT: Therapeutic Exercise: 1: R sidelying L hip abduction 0-50% x10 2: R sidelying L hip 50%-100% x10 3: R sidelying L hip hike x 10 4: R sidelying L hip circles x 5 each 5: *Clamshells 2x10 LLE 6: *Reverse clamshells 2x10 L 7: *Seated iso abs with alt arms 2x10 B 8: *Seated iso abs with alt marching 2x10 B 9: *Seated iso abs with alt arms with alt marching 2x10 B Skilled Intervention: Patient was educated in proper exercise technique and purpose for exercises. Skilled judgment was provided in selection of appropriate interventions. Correct performance of therapeutic exercises was facilitated with verbal cuing. Billing Therapeutic Exercise Treatment Minutes: 43 Total Treatment Time Minutes (timed/untimed): 43 Nia Morton, [facility] History of Present illness Narrative* Alistair Everett PT - 04/19/2022 2:53 PM EST Episode Visit Count: 7 Therapist That Will Accept/Oversee The Plan Of Care: Kailee Mata Start of Care Date: 03/08/22 Onset Date: 12/25/21 (end of December) Plan of Care Certification Date: 03/08/22 Next Certification Due Date: 05/08/22 Patient Identified by Name and Date of : Yes REHABILITATION AND SPORTS THERAPY PHYSICAL THERAPY TREATMENT NOTE ASSESSMENT: Radha Angeline Nurse tolerated the session with fatigue and expected muscle soreness. She demonstrated difficulty with L sidelying hip series. The patient will continue to benefit from ongoing skilled physical therapy to progress toward set goals. PLAN FOR NEXT VISIT: Work on core strengthening and balance SUBJECTIVE: Patient Reason for Visit: Pt states that balancing on one leg with UE support. Pt is able to stand on LLE longer than RLE. Pt is very pleased with progress thus far. Pain: Pain Pain Level: 0 Pain Location: Hip - Left;Groin - Left OBJECTIVE MEASURES WITH LEVEL OF FUNCTION: Pt easily fatigued with L hip series in R sidelying. TREATMENT: Therapeutic Exercise: 1: R sidelying L hip abduction 0-50% x10 2: R sidelying L hip 50%-100% x10 3: R sidelying L hip hike x 10 4: R sidelying L hip circles x 5 each 5: *Clamshells 2x10 LLE 6: *Reverse clamshells 2x10 L 7: *Seated iso abs with alt arms 2x10 B 8: *Seated iso abs with alt marching 2x10 B 9: *Seated iso abs with alt arms with alt marching 2x10 B Skilled Intervention: Patient was educated in proper exercise technique and purpose for exercises. Skilled judgment was provided in selection of appropriate interventions. Correct performance of therapeutic exercises was facilitated with verbal cuing. Billing Therapeutic Exercise Treatment Minutes: 43 Total Treatment Time Minutes (timed/untimed): 43 LUCA Driver PT [facility] NoteHNO ID: [id number] Author: Kailee Lemon, PT Service: ? 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 She demonstrated difficulty with step ups. The patient will continue to benefit from ongoing skilled physical therapy to progress toward set goals. PLAN FOR NEXT VISIT: Trial sidelying hip series, possibly Quadruped ER, standing hip stabilization alphabet. Try balance exercises SUBJECTIVE: Patient Reason for Visit: Pt states that standing hip extension is getting better and isn't having as much pain with it. Pt states walking down hill this morning seemed to be easier. Pain: Post Treatment Pain Post Treatment Symptoms: fatigued L hip OBJECTIVE MEASURES WITH LEVEL OF FUNCTION: BUE assist required for all standing exercises due to decreased strength of LLE. TREATMENT: Therapeutic Exercise: 1: Seated Hamstring stretch 3x30 seconds L 4: LAQ 2x10 (Performed in supine, but this position caused R uppe rarm pain, so instructed to perform in sitting at home.) 5: Standing hip abduction [id number] leg 6: Standing hip adduction 2x10 7: Step ups forward blue step 2x 10 leading with LLE 8: Step downs LLE x10 green step, x10 blue step 9: Standing hip flexion 2x10 B Skilled Intervention: Patient was educated in proper exercise technique and purpose for exercises. Skilled judgment was provided in selection of appropriate interventions. Correct performance of therapeutic exercises was facilitated with verbal and visual cuing. Neuromuscular Re-Education: 1: Standing NBOS on level ground x 30 seconds 2: SLS on each LE x 10 seconds B Skilled Intervention: Skilled judgment used to assess appropriate program for balance and coordination activity. Billing Therapeutic Exercise Treatment Minutes: 43 Neuromuscular Re-Education Treatment Minutes: 3 Total Treatment Time Minutes (timed/untimed): 46 Nia Moreno, [employer] ENGINEER Kailee Mata, [facility]11-07-2022 History of Present illness Narrative* Kailee Mata, PT - 04/12/2022 2:05 PM EST Episode Visit Count: 6 Therapist That Will Accept/Oversee The Plan Of Care: Kailee Mata Start of Care Date: 03/08/22 Onset Date: 12/25/21 (end december) Plan of Care Certification Date: 03/08/22 Next Certification Due Date: 05/08/22 Patient Identified by Name and Date of : Yes REHABILITATION AND SPORTS THERAPY PHYSICAL THERAPY TREATMENT NOTE ASSESSMENT: Radha Angeline Nurse tolerated the session with fatigue and expected muscle soreness. She demonstrated difficulty with step ups. The patient will continue to benefit from ongoing skilled physical therapy to progress toward set goals. PLAN FOR NEXT VISIT: Trial sidelying hip series, possibly Quadruped ER, standing hip stabilization alphabet. Try balanceexercises SUBJECTIVE: Patient Reason for Visit: Pt states that standing hip extension is getting better and isn't having as much pain with it. Pt states walking down hill this morning seemed to be easier. Pain: Post Treatment Pain Post Treatment Symptoms: fatigued L hip OBJECTIVE MEASURES WITH LEVEL OF FUNCTION: BUE assist required for all standing exercises due to decreased strength of LLE. TREATMENT: Therapeutic Exercise: 1: Seated Hamstring stretch 3x30 seconds L 4: LAQ 2x10 (Performed in supine, but this position caused R uppe rarm pain, so instructed to perform in sitting at home.) 5: Standing hip abduction [id number] leg 6: Standing hip adduction 2x10 7: Step ups forward blue step 2x 10 leading with LLE 8: Step downs LLE x10 green step, x10 blue step 9: Standing hip flexion 2x10 B Skilled Intervention: Patient was educated in proper exercise technique and purpose for exercises. Skilled judgment was provided in selection of appropriate interventions. Correct performance of therapeutic exercises was facilitated with verbal and visual cuing. Neuromuscular Re-Education: 1: Standing NBOS on level ground x 30 seconds 2: SLS on each LE x 10 seconds B Skilled Intervention: Skilled judgment used to assess appropriate program for balance and coordination activity. Billing Therapeutic Exercise Treatment Minutes: 43 Neuromuscular Re-Education Treatment Minutes: 3 Total Treatment Time Minutes (timed/untimed): 46 Nia Morton, LUCA Mata PT documented [facility]22 NoteHNO ID: [id number] Author: Kailee Mata, PT Service: ? Author Type: Physical Therapist Type: Progress Notes Filed: 04/05/2022 4:47 PM Note Text: Episode Visit Count: 5 Therapist That Will Accept/Oversee The Plan Of Care: Kailee Mata Start of Care Date: 03/08/22 Onset Date: 12/25/21 (end december) Plan of Care Certification Date: 03/08/22 Next Certification Due Date: 05/08/22 Patient Identified by Name and Date of : Yes REHABILITATION AND SPORTS THERAPY PHYSICAL THERAPY PROGRESS REPORT PLAN OF CARE UPDATE: Assessment: 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 She hasprogressed toward goals. Patient continues to present with impairments in overall function, range of motion L hip, and strength that interfere with . Current prognosis is Good due to: current objective clinical presentation;good overall health status;good support system/ coping skills;Prognosis may be limited due to chronic nature of impairments . She will benefit from continued skilled therapy services to meet the updated goals for this plan of care as noted below. Goals for Episode of Care: created on 03/08/22 through 05/08/22 [place] in home exercise program. (Met) Patient will decrease pain rating by 2 points to meet minimal clinical important difference for numeric pain rating scale. (Partially Met)-intermittent Patient will increase active ROM of L hip to symmetrical to allow pt to to improve postural alignment, to improve performance of ADLs, and to improve gait mechanics / gait pattern . (Not Met) Patient will demonstrate increase in L hip and core/trunk strength to 4+ to 5/5 during manual muscle testing in order to improve function for home management tasks, prior functional tasks, and to decrease pain. (Partially Met)-progressing Patient will increase flexibility of L hamstrings to 60 degrees to improve mechanics and decrease pain. (Met) Perform stairs, inclines and household activities with decreased report of symptoms/pain in 4-8 weeks. (Partially Met) Normal gait. Reciprocal stair negotiation. (Met) Patient Goals: To decrease/eliminate the pain. Planned Interventions, Frequency, and Duration: 1x/week, 4 weeks Total Number of Visits Planned: 4 Patient to be seen for Therapeutic exercise ([id number]);Manual therapy ([id number]);Neuromuscular re-education ([id number]);Patient/Family/Caregiver Education SUBJECTIVE: Patient Reason for Visit: Pt states she is noticing good improvements in function since starting therapy. She states she has gotten much better with multiple activities. She is now able to stand on her left leg now (when dressing). She still has pain with downhill walking and stairs.. Pain: Pain Pain Level: 0 (Reports 3/10 during her walk (downhill) earlier today.) Pain Location: Hip - Left;Groin - Left Description: Aching Frequency: Intermittent Post Treatment Pain Post Treatment Pain Level: No Change PROMIS Scales Higher is Better 03/19/2022 03/28/2022 04/05/2022 Phys Func - Score 42 (mild dysfunction) - - Phys Func - Percentile 21 % - - Social Roles - Score - 48 (within normal limits) - Social Role - Percentile - 42 % - GH Physical - Score - - - GH Physical - Percentile - - - GH Mental - Score - - - GH Mental - Percentile - - - Self-Eff Symptom - Score - - 49 (Average) Self-Eff Symptom - Percentile - - 46 % T-scores: mean of general population = 50. 5 points is clinically meaningfully difference Percentiles provide an indication of how the patient's score ranks in relation to the general population. Higher percentile rankings indicate better function/quality of life. 50th percentile is the average of the general population and indicates half of respondents had a worse score. Lower is Better 02/22/2022 03/28/2022 Fatigue - Score 59 (mild) 57 (mild) Fatigue - Percentile 18 % 24 % T-scores: mean of general population = 50. 5 points is clinically meaningfully difference Percentiles provide an indication of how the patient's score ranks in relation to the general population. Higher percentile rankings indicate better function/quality of life. 50th percentile is the average of the general population and indicates half of respondents had a worse score. OBJECTIVE MEASURES WITH LEVEL OF FUNCTION: LE Flexibility R SLR Flexibility: 60 deg, HS stretch L SLR Flexibility: 60 deg, HS stretch LE Strength L Hip Flexion (L2): 4+/5 (no pain) L Hip ABduction: 5/5 L Hip ADduction: 5/5 TREATMENT: Therapeutic Exercise: 1: Seated Hamstring stretch 3x30 seconds L 2: Seated iso abs with 5 second holds 2x5 3: Seated hip adduction with towel 2x10 4: LAQ 2x10 (Performed in supine, but this position caused R uppe rarm pain, so instructed to perform in sitting at home.) 5: Standing hip abduction [id number] leg 6: Standing hip extension x3 still painful L groin so discontinued 7: Step ups forward 2 gr (more content not included)...[facility]10-31-2022 History of Present illness Narrative* Kailee Mata, PT - 04/05/2022 3:34 PM EDT Episode Visit Count: 5 Therapist That Will Accept/Oversee The Plan Of Care: Kailee Mata Start of Care Date: 03/08/22 Onset Date: 12/25/21 (end of December) Plan of Care Certification Date: 03/08/22 Next Certification Due Date: 05/08/22 Patient Identified by Name and Date of : Yes REHABILITATION AND SPORTS THERAPY PHYSICAL THERAPY PROGRESS REPORT PLAN OF CARE UPDATE: Assessment: 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 She hasprogressed toward goals. Patient continues to present with impairments in overall function, range of motion L hip, and strength that interfere with . Current prognosis is Good due to: current objective clinical presentation;good overall health status;good support system/ coping skills;Prognosis may be limited due to chronic nature of impairments . She will benefit from continued skilled therapy services to meet the updated goals for this plan of care as noted below. Goals for Episode of Care: created on 03/08/22 through 05/08/22 [place] in home exercise program. (Met) Patient will decrease pain rating by 2 points to meet minimal clinical important difference for numeric pain rating scale. (Partially Met)-intermittent Patient will increase active ROM of L hip to symmetrical to allow pt to to improve postural alignment, to improve performance of ADLs, and to improve gait mechanics / gait pattern . (Not Met) Patient will demonstrate increase in L hip and core/trunk strength to 4+ to 5/5 during manual muscle testing in order to improve function for home management tasks, prior functional tasks, and to decrease pain. (Partially Met)-progressing Patient will increase flexibility of L hamstrings to 60 degrees to improve mechanics and decrease pain. (Met) Perform stairs, inclines and household activities with decreased report of symptoms/pain in 4-8 weeks. (Partially Met) Normal gait. Reciprocal stair negotiation. (Met) Patient Goals: To decrease/eliminate the pain. Planned Interventions, Frequency, and Duration: 1x/week, 4 weeks Total Number of Visits Planned: 4 Patient to be seen for Therapeutic exercise ([id number]);Manual therapy ([id number]);Neuromuscular re-education ([id number]);Patient/Family/Caregiver Education SUBJECTIVE: Patient Reason for Visit: Pt states she is noticing good improvements in function sincestarting therapy. She states she has gotten much better with multiple activities. She is now able to stand on her left leg now (when dressing). She still has pain with downhill walking and stairs.. Pain: Pain Pain Level: 0 (Reports 3/10 during her walk (downhill) earlier today.) Pain Location: Hip - Left;Groin - Left Description: Aching Frequency: Intermittent Post Treatment Pain Post Treatment Pain Level: No Change PROMIS Scales Higher is Better 03/19/2022 03/28/2022 04/05/2022 Phys Func - Score 42 (mild dysfunction) - - Phys Func - Percentile 21 % - - Social Roles - Score - 48 (within normal limits) - Social Role - Percentile - 42 % - GH Physical - Score - - - GH Physical - Percentile - - - GH Mental - Score - - - GH Mental - Percentile - - - Self-Eff Symptom - Score - - 49 (Average) Self-Eff Symptom - Percentile - - 46 % T-scores: mean of general population = 50. 5 points is clinically meaningfully difference Percentiles provide an indication of how the patient's score ranks in relation to the general population. Higher percentile rankings indicate better function/quality of life. 50th percentile is the average of the general population and indicates half of respondents had a worse score. Lower is Better 02/22/2022 03/28/2022 Fatigue - Score 59 (mild) 57 (mild) Fatigue - Percentile 18 % 24 % T-scores: mean of general population = 50. 5 points is clinically meaningfully difference Percentiles provide an indication of how the patient's score ranks in relation to the general population. Higher percentile rankings indicate better function/quality of life. 50th percentile is the average of the general population and indicates half of respondents had a worse score. OBJECTIVE MEASURES WITH LEVEL OF FUNCTION: LE Flexibility R SLR Flexibility: 60 deg, HS stretch L SLR Flexibility: 60 deg, HS stretch LE Strength L Hip Flexion (L2): 4+/5 (no pain) L Hip ABduction: 5/5 L Hip ADduction: 5/5 TREATMENT: Therapeutic Exercise: 1: Seated Hamstring stretch 3x30 seconds L 2: Seated iso abs with 5 second holds 2x5 3: Seated hip adduction with towel 2x10 4: LAQ 2x10 (Performed in supine, but this position caused R uppe rarm pain, so instructed to perform in sitting at home.) 5: Standing hip abduction [id number] leg 6: Standing hip extension x3 still painful L groin so discontinued 7: Step ups forward 2 green steps 2x 10 leading with LLE 8: Lateral step ups 2 green steps 2x 10 Skilled Intervention: Patient was educated in proper exercise technique and purpose for exercises. Reviewed and educated patient on additions/changes for home exercise program. Skilled judgment was provided in selection of appropriate interventions. Correct performance of therapeutic exercises was facilitated with verbal and visual cuing. Additional time necessary for objective measurements and reassessment due to progress update. Patient education as noted. Billing Therapeutic Exercise Treatment Minutes: 48 Total Treatment Time Minutes (timed/untimed): 48 Kailee Mata PT documented in [facility]10-[facility]22 NoteHNO ID: [id number] Author: Ame Armenta, DO Service: ? Author Type: Physician Type: Progress Notes Filed: 03/30/2022 7:42 PM Note Text: Hip Pain Eval SUBJECTIVE HISTORY OF PRESENT ILLNESS: Radha Marcus Nurse is a 76 year old female who presents with a chief complaint of left hip pain Other Issues Addressed at the Visit Today: None. Precipitating Event: Precipitating Event: Positioning for bone scan 12/25 Pain is improved with PT. Still painful. Improved by 50%. PAIN EVALUATION No data found in the last 1 encounters. Pain Radiation: Pain does not radiate Aggravating Factors: Sitting Alleviating Factors: physical therapy Patient Entered Questionnaires Spine Questions 02/22/2022 03/28/2022 Pain Location: Lower back Leg Pain Duration: 1-3 months - Symptoms from neck/cervical spine: No No Employment Status: Retired - Involved in [employer]/legal claim: No - Spine Red Flags 02/22/2022 Any type of cancer: No Unexplained fever: No Bowel or bladder disfunction: No Unintentional weight loss: No PROMIS Score Percentiles Physical Health 02/22/2022 03/19/2022 03/28/2022 Physical Function Percentile 21* 21* - Sleep Percentile 10 - 34 Fatigue Percentile 18* - 24* Pain Interference Percentile 5 - 21* PROMIS SOCIAL ROLE SCORE 02/22/2022 03/28/2022 Social Role Satisfaction Percentile 16* 42 PROMIS Global Health Scale 02/22/2022 Physical Health Percentile 22* Mental Health Percentile 13 Percentiles provide an indication of how the patient's score ranks in relation to the general population. Higher percentile rankings indicate better function/quality of life. 50th percentile is the average of the general population and indicates half of respondents had a worse score. Depression Screening: PHQ-9 02/22/2022 03/28/2022 Score 12 3 PHQ-9 Self Harm 02/22/2022 03/28/2022 Question 9 Not at all Not at all PHQ-9 Self-Harm (Item 9) response options: 0 Not at all 1 Several days 2 More than half the days 3 Nearly every day PHQ-9 Levels: 0-4 No - mild depression 5-9 Mild depression 10-14 Moderate depression 15-19 Moderately severe depression 20-27 Severe depression ACTIVE PROBLEM LIST Pain in Left Hip No past medical history on file. No past surgical history on file. Social History Tobacco Use Smoking status: Former Types: Cigarettes Smokeless tobacco: Never Substance Use Topics Alcohol use: Yes No family history on file. ALLERGIES Not on File CURRENT MEDICATIONS: buspirone HCl (BUSPAR ORAL) gabapentin (NEURONTIN) 100 mg capsule Fluorouracil 5 % cream apply to THE NOSE AND RIGHT CHEEK TWICE DAILY FOR 2 WEEKS triamcinolone acetonide (KENALOG) 0.1 % cream apply to affected area OF THE BODY TWICE DAILY FOR 2 WEEKS THEN H... (REFER TO PRESCRIPTION NOTES). REVIEW OF SYSTEMS: GENERAL: No weight loss or malaise MUSCULOSKELETAL: Negative for joint pain, swelling , improving hip muscle pain NEURO: No history of headaches, syncope, paralysis, seizures or tremors OBJECTIVE: PHYSICAL EXAM There were no vitals taken for this visit. Deferred ASSESSMENT/PLAN (M25.552) Pain in left hip (primary encounter diagnosis) Comment: Improving with PT, suspect will continue to resolve. Plan: Finish with PT, assess if not resolved in another 6-10 weeks or if increased symptoms. I spent a total of 20 minutes on the date of the service which included preparing to see the patient, [id number] patient care, completing clinical documentation, and communicating results to the patient/family/caregiver. This visit was conducted as a virtual visit with both audio and video. This note was partially generated using [employer] voice recognition system. SIGNATURE: Ame Armenta DO PATIENT NAME: Radha Marcus Nurse DATE: March 30, 2022 TIME: 4:52 [facility]10-25-2022 History of Present illness Narrative* Ame Armenta DO - 03/30/2022 4:50 PM EDT Hip Pain Eval SUBJECTIVE HISTORY OF PRESENT ILLNESS: Radha Marcus Nurse is a 76 year old female who presents with a chief complaint of left hip pain Other Issues Addressed at the Visit Today: None. Precipitating Event: Precipitating Event: Positioning for bone scan 12/25 Pain is improved with PT. Still painful. Improved by 50%. PAIN EVALUATION No data found in the last 1 encounters. Pain Radiation: Pain does not radiate Aggravating Factors: Sitting Alleviating Factors: physical therapy Patient Entered Questionnaires Spine Questions 02/22/2022 03/28/2022 Pain Location: Lower back Leg Pain Duration: 1-3 months - Symptoms from neck/cervical spine: No No Employment Status: Retired - Involved in law suit/legal claim: No - Spine Red Flags 02/22/2022 Any type of cancer: No Unexplained fever: No Bowel or bladder disfunction: No Unintentional weight loss: No PROMIS Score Percentiles Physical Health 02/22/2022 03/19/2022 03/28/2022 Physical Function Percentile 21* 21* - Sleep Percentile 10 - 34 Fatigue Percentile 18* - 24* Pain Interference Percentile 5 - 21* PROMIS SOCIAL ROLE SCORE 02/22/2022 03/28/2022 Social Role Satisfaction Percentile 16* 42 PROMIS Global Health Scale 02/22/2022 Physical Health Percentile 22* Mental Health Percentile 13 Percentiles provide an indication of how the patient's score ranks in relation to the general population. Higher percentile rankings indicate better function/quality of life. 50th percentile is the average of the general population and indicates half of respondents had a worse score. Depression Screening: PHQ-9 02/22/2022 03/28/2022 Score 12 3 PHQ-9 Self Harm 02/22/2022 03/28/2022 Question 9 Not at all Not at all PHQ-9 Self-Harm (Item 9) response options: 0 Not at all 1 Several days 2 More than half the days 3 Nearly every day PHQ-9 Levels: 0-4 No - mild depression 5-9 Mild depression 10-14 Moderate depression 15-19 Moderately severe depression 20-27 Severe depression ACTIVE PROBLEM LIST Pain in Left Hip No past medical history on file. No past surgical history on file. Social History Tobacco Use Smoking status: Former Types: Cigarettes Smokeless tobacco: Never Substance Use Topics Alcohol use: Yes No family history on file. ALLERGIES Not on File CURRENT MEDICATIONS: buspirone HCl (BUSPAR ORAL) gabapentin (NEURONTIN) 100 mg capsule Fluorouracil 5 % cream apply to THE NOSE AND RIGHT CHEEK TWICE DAILY FOR 2 WEEKS triamcinolone acetonide (KENALOG) 0.1 % cream apply to affected area OF THE BODY TWICE DAILY FOR 2 WEEKS THEN H... (REFER TO PRESCRIPTION NOTES). REVIEW OF SYSTEMS: GENERAL: No weight loss or malaise MUSCULOSKELETAL: Negative for joint pain, swelling , improving hip muscle pain NEURO: No history of headaches, syncope, paralysis, seizures or tremors OBJECTIVE: PHYSICAL EXAM There were no vitals taken for this visit. Deferred ASSESSMENT/PLAN (M25.552) Pain in left hip (primary encounter diagnosis) Comment: Improving with PT, suspect will continue to resolve. Plan: Finish with PT, assess if not resolved in another 6-10 weeks or if increased symptoms. I spent a total of 20 minutes on the date of the service which included preparing to see the patient, [id number] patient care, completing clinical documentation, and communicating results to the patient/family/caregiver. This visit was conducted as a virtual visit with both audio and video. This note was partially generated using [employer] voice recognition system. SIGNATURE: Ame Armenta DO PATIENT NAME: Radha Marcus Nurse DATE: March 30, 2022 TIME: 4:52 PM [facility] NoteHNO ID: [id number] Author: Kailee Mata PT Service: ? Author Type: Physical Therapist Type: Progress Notes Filed: 03/29/2022 4:02 PM Note Text: Episode Visit Count: 4 Therapist That Will Accept/Oversee The Plan Of Care: Kailee Mata Start of Care Date: 03/08/22 Onset Date: 12/25/21 (end december) Plan of Care Certification Date: 03/08/22 Next Certification Due Date: 05/08/22 Patient Identified by Name and Date of : Yes REHABILITATION AND SPORTS THERAPY PHYSICAL THERAPY TREATMENT NOTE ASSESSMENT: Radha Marcus Nurse tolerated the session with decreased activity tolerance due to pain in anterior L hip, fatigue, and expected muscle soreness. She demonstrated difficulty with step ups forward and lateral and step downs. The patient will continue to benefit from ongoing skilled physical therapy to progress toward set goals. PLAN FOR NEXT VISIT: Asses response tostanding exercises for HEP. Continue to progress core stability and strengthening SUBJECTIVE: Patient Reason for Visit: Pt reports being frustrated with her L hip feeling vulerable or like its not stable enough and she isn't used to this type of sensation. Pt has virtual visit with Ame Armenta tomorrow. Pain: Pain Pain Location: Hip - Left;Groin - Left Description: Sore OBJECTIVE MEASURES WITH LEVEL OF FUNCTION: Fatigue in LLE noted with standing hip exercises. TREATMENT: Therapeutic Exercise: 1: Seated Hamstring stretch 3x30 seconds L 2: Standing hip extension x3 (d/c due to pain in anterior hip 6/10) 3: *Standing hip abduction 2x10 B 4: *Standing hip adduction 2x10 5: Step ups forward green step x 10 leading with LLE 6: Step downs green step x10 7: Lateral step ups x 5 (d/c due to increase in pain in L anterior hip) 8: *LAQ 2x10 (Fatigue noted) 9: Seated iso abs with 5 second holds 2x5 10: *STS x10 11: *Seated hip adduction with towel 2x10 Skilled Intervention: Patient was educated in proper exercise technique and purpose for exercises. Reviewed and educated patient on additions/changes for home exercise program as above (*). Skilled judgment was provided in selection of appropriate interventions. Provided written instruction for home exercise program to facilitate proper performance and compliance. Correct performance of therapeutic exercises was facilitated with verbal and visual cuing. Additional time necessary for correction of technique due to compensations to ease the pain in L anterior hip.. Gait Training: Stair Training: Pt ascended and descended 4 steps x 3 with B rails with reciprocal pattern (after continued reps pt experienced increase in pain in LLE) Skilled Intervention: Patient was provided supervision during pre-gait/gait training to prevent falls and insure safety. Billing Therapeutic Exercise Treatment Minutes: 53 Gait Training Treatment Minutes: 3 Total Treatment Time Minutes (timed/untimed): 56 Nia Sunshinecristian, TOWBO[employer] ENGINEER Kailee Warrenirma, [facility]10-24-2022 History of Present illness Narrative* Kailee Mata, PT - 03/29/2022 3:16 PM EDT Episode Visit Count: 4 Therapist That Will Accept/Oversee The Plan Of Care: Kailee Mata Start of Care Date: 03/08/22 Onset Date: 12/25/21 (end of December) Plan of Care Certification Date: 03/08/22 Next Certification Due Date: 05/08/22 Patient Identified by Name and Date of : Yes REHABILITATION AND SPORTS THERAPY PHYSICAL THERAPY TREATMENT NOTE ASSESSMENT: Radha Marcus Nurse tolerated the session with decreased activity tolerance due to pain in anterior L hip, fatigue, and expected muscle soreness. She demonstrated difficulty with step ups forward and lateral and step downs. The patient will continue to benefit from ongoing skilled physical therapy to progress toward set goals. PLAN FOR NEXT VISIT: Asses response tostanding exercises for HEP. Continue to progress core stability and strengthening SUBJECTIVE: Patient Reason for Visit: Pt reports being frustrated with her L hip feeling vulerable or like its not stable enough and she isn't used to this type of sensation. Pt has virtual visit with Ame Armenta tomorrow. Pain: Pain Pain Location: Hip - Left;Groin - Left Description: Sore OBJECTIVE MEASURES WITH LEVEL OF FUNCTION: Fatigue in LLE noted with standing hip exercises. TREATMENT: Therapeutic Exercise: 1: Seated Hamstring stretch 3x30 seconds L 2: Standing hip extension x3 (d/c due to pain in anterior hip 11/13) 3: *Standing hip abduction 2x10 B 4: *Standing hip adduction 2x10 5: Step ups forward green step x 10 leading with LLE 6: Step downs green step x10 7: Lateral step ups x 5 (d/c due to increase in pain in L anterior hip) 8: *LAQ 2x10 (Fatigue noted) 9: Seated iso abs with 5 second holds 2x5 10: *STS x10 11: *Seated hip adduction with towel 2x10 Skilled Intervention: Patient was educated in proper exercise technique and purpose for exercises. Reviewed and educated patient on additions/changes for home exercise program as above (*). Skilled judgment was provided in selection of appropriate interventions. Provided written instruction for home exercise program to facilitate proper performance and compliance. Correct performance of therapeutic exercises was facilitated with verbal and visual cuing. Additional time necessary for correction of technique due to compensations to ease the pain in L anterior hip.. Gait Training: Stair Training: Pt ascended and descended 4 steps x 3 with B rails with reciprocal pattern (after continued reps pt experienced increase in pain in LLE) Skilled Intervention: Patient was provided supervision during pre-gait/gait training to prevent falls and insure safety. Billing Therapeutic Exercise Treatment Minutes: 53 Gait Training Treatment Minutes: 3 Total Treatment Time Minutes (timed/untimed): 56 Nia Morton, LUCA Mata PT documented in this [facility]10-17-[facility]22 NoteHNO ID: [id number] Author: Kailee Mata PT Service: ? Author Type: Physical Therapist Type: Progress Notes Filed: 03/22/2022 8:09 PM Note Text: Episode Visit Count: 3 Therapist That Will Accept/Oversee The Plan Of Care: Kailee Mata Start of Care Date: 03/08/22 Onset Date: 12/25/21 (end december) Plan of Care Certification Date: 03/08/22 Next Certification Due Date: 05/08/22 Patient Identified by Name and Date of : Yes REHABILITATION AND SPORTS THERAPY PHYSICAL THERAPY TREATMENT NOTE ASSESSMENT: Radha Marcus Nurse tolerated the session with fatigue. She demonstrated difficulty with LAQ due to hamstring tightness. Towel roll applied under scapula while pt performed supine exercises.The patient will continue to benefit from ongoing skilled physical therapy to progress toward set goals. PLAN FOR NEXT VISIT: May add core stabilization and quad strengthening. SUBJECTIVE: Patient Reason for Visit: Pt reports mostly having pain in groin area. Pt having most difficulty going down hill with her groin pain, walking up hill is not a problem. Pt states having difficulty with lying on her back to complete exercsies due to discomfort in RUE . Pain: Pain Pain Location: Hip - Left;Groin - Right Description: Sore;Aching OBJECTIVE MEASURES WITH LEVEL OF FUNCTION: Pt demonstrated extension lag with LAQ. TREATMENT: Therapeutic Exercise: 1: *Seated Hamstring stretch 3x30 seconds L 2: *Supine hip IR stretch 3x30 seconds 3: *Supine L hip ER stretch 3x30 seconds 4: Supine hip flexor stretch over edge of table 3x30 seconds wiht therapist supporting LLE 5: *Seated hip IR stretch x 30 seconds L 6: *Seated hip ER stretch x30 seconds L 7: *LAQ 2x10 LLE Skilled Intervention: Patient was educated in proper exercise technique and purpose for exercises. Reviewed and educated patient on additions/changes for home exercise program as above (*). Skilled judgment was provided in selection of appropriate interventions. Provided written instruction for home exercise program to facilitate proper performance and compliance. Correct performance of therapeutic exercises was facilitated with verbal and visual cuing. Billing Therapeutic Exercise Treatment Minutes: 45 Total Treatment Time Minutes (timed/untimed): 45 Nai Morton, [employer]BO[employer] ENGINEER Kailee Mata, [facility]10-17-2022 History of Present illness Narrative* Kailee Adolfo, PT - 03/22/2022 2:15 PM EDT Episode Visit Count: 3 Therapist That Will Accept/Oversee The Plan Of Care: Kailee Mata Start of Care Date: 03/08/22 Onset Date: 12/25/21 (end of December) Plan of Care Certification Date: 03/08/22 Next Certification Due Date: 05/08/22 Patient Identified by Name and Date of : Yes REHABILITATION AND SPORTS THERAPY PHYSICAL THERAPY TREATMENT NOTE ASSESSMENT: Radha Marcus Nurse tolerated the session with fatigue. She demonstrated difficulty with LAQdue to hamstring tightness. Towel roll applied under scapula while pt performed supine exercises.The patient will continue to benefit from ongoing skilled physical therapy to progress toward set goals. PLAN FOR NEXT VISIT: May add core stabilization and quad strengthening. SUBJECTIVE: Patient Reason for Visit: Pt reports mostly having pain in groin area. Pt having most difficulty going down hill with her groin pain, walking up hill is not a problem. Pt states having difficulty with lying on her back to complete exercsies due to discomfort in RUE . Pain: Pain Pain Location: Hip - Left;Groin - Right Description: Sore;Aching OBJECTIVE MEASURES WITH LEVEL OF FUNCTION: Pt demonstrated extension lag with LAQ. TREATMENT: Therapeutic Exercise: 1: *Seated Hamstring stretch 3x30 seconds L 2: *Supine hip IR stretch 3x30 seconds 3: *Supine L hip ER stretch 3x30 seconds 4: Supine hip flexor stretch over edge of table 3x30 seconds wiht therapist supporting LLE 5: *Seated hip IR stretch x 30 seconds L 6: *Seated hip ER stretch x30 seconds L 7: *LAQ 2x10 LLE Skilled Intervention: Patient was educated in proper exercise technique and purpose for exercises. Reviewed and educated patient on additions/changes for home exercise program as above (*). Skilled judgment was provided in selection of appropriate interventions. Provided written instruction for home exercise program to facilitate proper performance and compliance. Correct performance of therapeutic exercises was facilitated with verbal and visual cuing. Billing Therapeutic Exercise Treatment Minutes: 45 Total Treatment Time Minutes (timed/untimed): 45 Nia Morton, TOWBO[employer] ENGINEER Kailee Mata PT documented in this encounterF[facility]10-10-2022 NoteHNO ID: [id number] Author: Kailee Mata PT Service: ? Author Type: Physical Therapist Type: Progress Notes Filed: 03/15/2022 5:02 PM Note Text: Episode Visit Count: 2 Therapist That Will Accept/Oversee The Plan Of Care: Kailee Mata Start of Care Date: 03/08/22 Onset Date: 12/25/21 (end december) Plan of Care Certification Date: 03/08/22 Next Certification Due Date: 05/08/22 Patient Identified by Name and Date of : Yes REHABILITATION AND SPORTS THERAPY PHYSICAL THERAPY TREATMENT NOTE ASSESSMENT: Radha Marcus Nurse tolerated the session with decreased symptoms. She demonstrated difficulty with hip IR and ER AROM supine. The patient will continue to benefit from ongoing skilled physical therapy to progress toward set goals. PLAN FOR NEXT VISIT: Asses response to L hip stretches. Triiger point and STM prn to L piriformis SUBJECTIVE: Patient Reason for Visit: Pt reports having difficulty putting her pants on and having to shift all of her body weight on her LLE. Pt now able to lay on her L side a little bit. Pt states hip IR/ER home exercsie increase her pain, can barely complete ER. Pain: Pain Pain Location: Hip - Left;Groin - Right Description: Dull (twinges with walking this morning) Post Treatment Pain Post Treatment Pain Level: Better Post Treatment Pain Location: Hip - Left;Groin - Left Post Treatment Pain Description: ( I feel 500% better) OBJECTIVE MEASURES WITH LEVEL OF FUNCTION: Increased hip flexion mobility noted with repeated supine hip flexor stretch. TREATMENT: Therapeutic Exercise: 1: SKC 3 x 30 sec holds each leg 2: Supine hip IR stretch 3x30 seconds 3: Supine L hip ER stretch 3x30 seconds 4: Supine hip flexor stretch over edge of table 3x30 seconds wiht therapist supporting LLE 5: * Education on using rolling pin to roll out quad muscles (pt was massaging quads as she was performing stretches and it felt great) 6: * Education on using tennis ball for trigger point to L piriformis Skilled Intervention: Patient was educated in proper exercise technique and purpose for exercises. Reviewed and educated patient on additions/changes for home exercise program as above (*). Skilled judgment was provided in selection of appropriate interventions. Correct performance of therapeutic exercises was facilitated with verbal, visual, and tactile cuing. Manual Therapy: 1: Trigger point relase and STM to L piriformis Skilled Intervention: Manual skills to improve joint mobility, ROM, and decrease pain. Utilized anatomy knowledge of the therapist, and assessment of patient's response to intervention. Billing Therapeutic Exercise Treatment Minutes: 37 Manual TherapyTreatment Minutes: 8 Total Treatment Time Minutes (timed/untimed): 45 LUCA Driver, [facility]10-05-2022 NoteHNO ID: [id number] Author: Kailee Mata PT Service: ? Author Type: Physical Therapist Type: Progress Notes Filed: 03/10/2022 3:35 PM Note Text: Episode Visit Count: 1 Therapist That Will Accept/Oversee The Plan Of Care: Kailee Mata Start of Care Date: 03/08/22 Onset Date: 12/25/21 (end december) Plan of Care Certification Date: 03/08/22 Next Certification Due Date: 05/08/22 Patient Identified by Name and Date of : Yes REHABILITATION AND SPORTS THERAPY PHYSICAL THERAPY EVALUATION PLAN OF CARE: Assessment: Radha Marcus Nurse presents with diagnosis of pain in L hip that interferes with stair negotiation (walking inclines (steep trails), some household activities) . She presents with impairments in flexibility, overall function, range of motion, strength , and tissue tenderness. Prognosis for therapy is Good due to: current objective clinical presentation;good overall health status;good support system/ coping skills;Prognosis may be limited due to chronic nature of impairments . She will benefit from skilled therapy services to meet the goals established for this plan of care as noted below. Goals for Episode of Care: created on 03/08/22 through 05/08/22 [place] in home exercise program. Patient will decrease pain rating by 2 points to meet minimal clinical important difference for numeric pain rating scale. Patient will increase active ROM of L hip to symmetrical to allow pt to to improve postural alignment, to improve performance of ADLs, and to improve gait mechanics / gait pattern . Patient will demonstrate increase in L hip and core/trunk strength to 4+ to 5/5 during manual muscle testing in order to improve function for home management tasks, prior functional tasks, and to decrease pain. Patient will increase flexibility of L hamstrings to 60 degrees to improve mechanics and decrease pain. Perform stairs, inclines and household activities with decreased report of symptoms/pain in 4-8 weeks. Normal gait. Reciprocal stair negotiation. Patient Goals: To decrease/eliminate the pain. Planned Interventions, Frequency, and Duration: Current Frequency: 1x/week Duration: 8 weeks Total Number of Visits Planned: 8 Planned Treatment Interventions: Therapeutic exercise (45837);Manual therapy (50944);Neuromuscular re-education (04616);Patient/Family/Caregiver Education PLAN FOR NEXT VISIT: Assess response to initial treatment and HEP. Review HEP for correct performance. Progress exercises to meet goals. Patient demonstrates good understanding of plan of care and treatment. The above goals and plan of care were discussed and agreed upon by patient/family. SUBJECTIVE: Radha Marcus Nurse is a 76 year old female seen today for Pt is a walker (morning and afternoon). Had imaging for L hip/pelvis and the positioning caused increased pain (end december). Difficulty sleeping, but better now lying down. Had x-ray- some osteoarthritis. Pain moves from lateral hip to buttock area. Brings a lot of relief and feels good to massage that area. Better standing (stationary or walking/moving around). Patient Goals: To decrease/eliminate the pain. Functional Limitations: stair negotiation (walking inclines (steep trails), some household activities) Prior Level of Function: Independent without limitations Relevant History Employment: Retired Recreation / Current Exercise: Pt walks twice a day. Intake Information: Prescription present Previous Treatment: None Pain: Pain Pain Level: 4 (Not more than a 4.) Pain Location: Buttocks - Left;Hip - Left Description: Dull Frequency: Intermittent Post Treatment Pain Post Treatment Pain Level: No Change PROMIS Scales Higher is Better 02/22/2022 03/07/2022 Phys Func - Score 42 (mild dysfunction) - Phys Func - Percentile 21 % - Social Roles - Score 40 (mild dysfunction) - Social Role - Percentile 16 % - GH Physical - Score 42.3 (Good) - GH Physical - Percentile 22 % - GH Mental - Score 38.8 (Fair) - GH Mental - Percentile 13 % - Self-Eff Symptom - Score - 50 (Average) Self-Eff Symptom - Percentile - 50 % T-scores: mean of general population = 50. 5 points is clinically meaningfully difference Percentiles provide an indication of how the patient's score ranks in relation to the general population. Higher percentile rankings indicate better function/quality of life. 50th percentile is the average of the general population and indicates half of respondents had a worse score. Lower is Better 02/22/2022 Fatigue - Score 59 (mild) Fatigue - Percentile 18 % T-scores: mean of general population = 50. 5 points is clinically meaningfully difference Percentiles provide an indication of how the patient's score ranks in relation to the general population. Higher percentile rankings indicate better function/quality of life. 50th percentile is the average of the general population and indicates half of respond (more content not included)... [facility]10-05-2022 History of Present illness Narrative* Kailee Mata, PT - 03/10/2022 3:16 PM EDT Episode Visit Count: 1 Therapist That Will Accept/Oversee The Plan Of Care: Kailee Mata Start of Care Date: 03/08/22 Onset Date: 12/25/21 (end december) Plan of Care Certification Date: 03/08/22 Next Certification Due Date: 05/08/22 Patient Identified by Name and Date of : Yes REHABILITATION AND SPORTS THERAPY PHYSICAL THERAPY EVALUATION PLAN OF CARE: Assessment: Radha Marcus Nurse presents with diagnosis of pain in L hip that interferes with stair negotiation (walking inclines (steep trails), some household activities) . She presents with impairmentsin flexibility, overall function, range of motion, strength , and tissue tenderness. Prognosis for gini ac is Good due to: current objective clinical presentation;good overall health status;good support system/ coping skills;Prognosis may be limited due to chronic nature of impairments . She will benefit from skilled therapy services to meet the goals established for this plan of care as noted below. Goals for Episode of Care: created on 03/08/22 through 05/08/22 [place] in home exercise program. Patient will decrease pain rating by 2 points to meet minimal clinical important difference for numeric pain rating scale. Patient will increase active ROM of L hip to symmetrical to allow pt to to improve postural alignment, to improve performance of ADLs, and to improve gait mechanics / gait pattern . Patient will demonstrate increase in L hip and core/trunk strength to 4+ to 5/5 during manual muscle testing in order to improve function for home management tasks, prior functional tasks, and to decrease pain. Patient will increase flexibility of L hamstrings to 60 degrees to improve mechanics and decrease pain. Perform stairs, inclines and household activities with decreased report of symptoms/pain in 4-8 weeks. Normal gait. Reciprocal stair negotiation. Patient Goals: To decrease/eliminate the pain. Planned Interventions, Frequency, and Duration: Current Frequency: 1x/week Duration: 8 weeks Total Number of Visits Planned: 8 Planned Treatment Interventions: Therapeutic exercise (25943);Manual therapy (67203);Neuromuscular re-education (88705);Patient/Family/Caregiver Education PLAN FOR NEXT VISIT: Assess response to initial treatment and HEP. Review HEP for correct performance. Progress exercises to meet goals. Patient demonstrates good understanding of plan of care and treatment. The above goals and plan of care were discussed and agreed upon by patient/family. SUBJECTIVE: Radha Angeline Nurse is a 76 year old female seen today for Pt is a walker (morning and afternoon). Had imaging for L hip/pelvis and the positioning caused increased pain (end of December). Difficulty sleeping, but better now lying down. Had x-ray- some osteoarthritis. Pain moves from lateral hipto buttock area. Brings a lot of relief and feels good to massage that area. Better standing (stationary or walking/moving around). Patient Goals: To decrease/eliminate the pain. Functional Limitations: stair negotiation (walking inclines (steep trails), some household activities) Prior Level of Function: Independent without limitations Relevant History Employment: Retired Recreation / Current Exercise: Pt walks twice a day. Intake Information: Prescription present Previous Treatment: None Pain: Pain Pain Level: 4 (Not more than a 4.) Pain Location: Buttocks - Left;Hip - Left Description: Dull Frequency: Intermittent Post Treatment Pain Post Treatment Pain Level: No Change PROMIS Scales Higher is Better 02/22/2022 03/07/2022 Phys Func - Score 42 (mild dysfunction) - Phys Func - Percentile 21 % - Social Roles - Score 40 (mild dysfunction) - Social Role - Percentile 16 % - GH Physical - Score 42.3 (Good) - GH Physical - Percentile 22 % - GH Mental - Score 38.8 (Fair) - GH Mental - Percentile 13 % - Self-Eff Symptom - Score - 50 (Average) Self-Eff Symptom - Percentile - 50 % T-scores: mean of general population = 50. 5 points is clinically meaningfully difference Percentiles provide an indication of how the patient's score ranks in relation to the general population. Higher percentile rankings indicate better function/quality of life. 50th percentile is the average of the general population and indicates half of respondents had a worse score. Lower is Better 02/22/2022 Fatigue - Score 59 (mild) Fatigue - Percentile 18 % T-scores: mean of general population = 50. 5 points is clinically meaningfully difference Percentiles provide an indication of how the patient's score ranks in relation to the general population. Higher percentile rankings indicate better function/quality of life. 50th percentile is the average of the general population and indicates half of respondents had a worse score. OBJECTIVE MEASURES WITH LEVEL OF FUNCTION: Posture / Alignment Lumbo - Pelvic Alignment: Alignment appears symmetrical in supien and prone positioning. LE Flexibility Flexibility: Straight Leg Raise;Comments R SLR Flexibility: 60 deg, HS stretch L SLR Flexibility: 45 deg, posterior HS/ischial tub. Flexibility Comments: SKC: R WNL, L pain L ant/lat hip; Hip IR/ER R: WNL, L:limited ROM and tender. LE Strength R LE Strength: 5/5 L Hip Flexion (L2): 4/5 (pain) L Hip ABduction: 4+/5 L Hip ADduction: 4+/5 Education: Education Learning Preferences: Demonstration;Explanation Barriers: None Learning/educational needs: Home exercise program;Plan of Care Education Provided: Yes, see treatment interventions for education provided Education Provided To: Patient Education Mode/Type: Demonstration;Explanation/Discussion;Literature/Printed Materials;Performance Response to Education/Teach Back: States/Identifies;Return Demonstration TREATMENT: PT Treatment Interventions: Therapeutic Exercise Evaluation Therapeutic Exercise: 1: *SKC 3 x 30 sec holds each leg 2: *supine hip IR/ER AROM within painfree range 2 x 10 each 3: *gluteal sets (in hooklying for comfort) 5 sec holds x 10 Skilled Intervention: Patient was educated in proper exercise technique and purpose for exercises. Skilled judgment was provided in selection of appropriate interventions. Provided written instruction for home exercise program to facilitate proper performance and compliance. Correct performance of therapeutic exercises was facilitated with verbal and visual cuing. Patient education as noted. Billing * Evaluation Low Complexity: 1 Unit Therapeutic Exercise Treatment Minutes: 15 Total Treatment Time Minutes (timed/untimed): 45 Kailee Mata PT documented [facility] NoteHNO ID: [id number] Author: Ame Armenta, DO Service: ? Author Type: Physician Type: Progress Notes Filed: 02/25/2022 9:00 PM Note Text: Spine Care Path Initial Exam CC: left hip pain SUBJECTIVE HISTORY OF PRESENT ILLNESS: Radha Marcus Nurse is a 76 year old female who presents with a chief complaint of left hip pain Other Issues Addressed at the Visit Today: None. Precipitating Event: Positioning for bone scan 12/25 Pain was after being forced into internal rotation position for scan. The pain increased over the days, and now is not getting better. She still goes on her walks, but has trouble with chores, bending, sleeping. Sitting PAIN EVALUATION 02/24/2022 1332 Pain Level: 4 Pain Location: Buttocks-Left pain worse when sitting and laying down Description: Tingling;Sharp Duration Amount of Time: 2.5 Duration Units: Months Frequency: Continuous Intervention/Comfort measure: Medication;Exercise Pain Radiation:Left buttock to upper thigh Aggravating Factors: bending forward Alleviating Factors: self massage Litigation: No Workers' Compensation: No YELLOW AND BLUE FLAGS No-Neg Attitude; Back Pain is Disabling No-Avoiding Activity (for Fear of Pain) No-Depression or Anxiety Disorders No-Social Problems No-Substance Use Disorder No-Job Dissatisfaction No-Financial Disincentives Patient Entered Questionnaires Spine Questions 02/22/2022 Pain Location: Lower back Pain Duration: 1-3 months Symptoms from neck/cervical spine: No Employment Status: Retired Involved in law suit/legal claim: No Spine Red Flags 02/22/2022 Any type of cancer: No Unexplained fever: No Bowel or bladder disfunction: No Unintentional weight loss: No PROMIS Score Percentiles Physical Health 02/22/2022 Physical Function Percentile 21* Sleep Percentile 10 Fatigue Percentile 18* Pain Interference Percentile 5 PROMIS SOCIAL ROLE SCORE 02/22/2022 Social Role Satisfaction Percentile 16* PROMIS Global Health Scale 02/22/2022 Physical Health Percentile 22* Mental Health Percentile 13 Percentiles provide an indication of how the patient's score ranks in relation to the general population. Higher percentile rankings indicate better function/quality of life. 50th percentile is the average of the general population and indicates half of respondents had a worse score. Depression Screening: PHQ-9 02/22/2022 Score 12 PHQ-9 Self Harm 02/22/2022 Question 9 Not at all PHQ-9 Self-Harm (Item 9) response options: 0 Not at all 1 Several days 2 More than half the days 3 Nearly every day PHQ-9 Levels: 0-4 No - mild depression 5-9 Mild depression 10-14 Moderate depression 15-19 Moderately severe depression 20-27 Severe depression There is no problem list on file for this patient. No past medical history on file. No past surgical history on file. Social History Tobacco Use Smoking status: Former Types: Cigarettes Smokeless tobacco: Never Substance Use Topics Alcohol use: Yes No family history on file. ALLERGIES Not on File CURRENT MEDICATIONS: buspirone HCl (BUSPAR ORAL) gabapentin (NEURONTIN) 100 mg capsule Fluorouracil 5 % cream apply to THE NOSE AND RIGHT CHEEK TWICE DAILY FOR 2 WEEKS triamcinolone acetonide (KENALOG) 0.1 % cream apply to affected area OF THE BODY TWICE DAILY FOR 2 WEEKS THEN H... (REFER TO PRESCRIPTION NOTES). REVIEW OF SYSTEMS: PAIN ASSESSMENT: See HPI. GENERAL: Denies fever, chills malaise and weight loss. HEENT: No recent change in vision or hearing. CARDIOVASCULAR: Denies chest pain, history of A-fib, valvular disease, or pacemaker/ICD. RESPIRATORY: Denies SOB, sputum production, and hemoptysis. GI: Denies GI ulcers, inflammatory disease, or liver disease. : Denies change in frequency or urgency, kidney disease, and burning with urination. MUSCULOSKELETAL: Positive for injury and joint pain SKIN: Denies rash or itching. PSYCHOLOGICAL: Denies uncontrolled depression or anxiety. NEURO: Denies CVA, seizures, headaches. ENDOCRINE: Denies diabetes, thyroid disease. HEMATOLOGY/LYMPHOLOGY: Denies cancer, bleeding or clotting disorders, anemia,and DVT's. ALLERGIC/IMMUNOLOGICAL: Denies risks for infection, or recent MRSA infections. OBJECTIVE: PHYSICAL EXAM BP 135/51 Pulse 78 Resp 14 Ht 158.8 cm (5' 2.5) Wt 42.6 kg (94 lb) SpO2 100% BMI 16.92 kg/m? GENERAL APPEARANCE: Thin. NEURO PSYCH: Patient oriented to person, place, and time. Mood pleasant. Benign affect. CARDIOVASCULAR: Palpable pulses. No edema noted. No varicosities. SKIN: Head, neck, trunk, and extremities dry, intact and without lesions. LYMPHATICS: Groin exam deferred. MUSCULOSKELETAL VISUAL INSPECTION CERVICAL: WNL THORACIC: WNL LUMBAR: WNL PALPATION: SPINOUS PROCESS: No pain. PARASPINALS: No pain. Pain at posterior left hip girdle, marlene obtruator internus SPINE ROM: LUMBAR ROM: Full ROM Without Pain M (more content not included)...[facility]09-22-2022 History of Present illness Narrative* Ame Armenta, - 02/25/2022 8:45 PM EDT Images from the original note were not included. Spine Care Path Initial Exam CC: left hip pain SUBJECTIVE HISTORY OF PRESENT ILLNESS: Radha Angeline Abad is a 76 year old female who presents with a chief complaint of left hip pain Other Issues Addressed at the Visit Today: None. Precipitating Event: Positioning for bone scan 12/25 Pain was after being forced into internal rotation position for scan. The pain increased over the days, and now is not getting better. She still goes on her walks, but has trouble with chores, bending, sleeping. Sitting PAIN EVALUATION 02/24/2022 1332 Pain Level: 4 Pain Location: Buttocks-Left pain worse when sitting and laying down Description: Tingling;Sharp Duration Amount of Time: 2.5 Duration Units: Months Frequency: Continuous Intervention/Comfort measure: Medication;Exercise Pain Radiation:Left buttock to upper thigh Aggravating Factors: bending forward Alleviating Factors: self massage Litigation: No Workers' Compensation: No YELLOW & BLUE FLAGS No-Neg Attitude; Back Pain is Disabling No-Avoiding Activity (for Fear of Pain) No-Depression or Anxiety Disorders No-Social Problems No-Substance Use Disorder No-Job Dissatisfaction No-Financial Disincentives Patient Entered Questionnaires Spine Questions 02/22/2022 Pain Location: Lower back Pain Duration: 1-3 months Symptoms from neck/cervical spine: No Employment Status: Retired Involved in law suit/legal claim: No Spine Red Flags 02/22/2022 Any type of cancer: No Unexplained fever: No Bowel or bladder disfunction: No Unintentional weight loss: No PROMIS Score Percentiles Physical Health 02/22/2022 Physical Function Percentile 21* Sleep Percentile 10 Fatigue Percentile 18* Pain Interference Percentile 5 PROMIS SOCIAL ROLE SCORE 02/22/2022 Social Role Satisfaction Percentile 16* PROMIS Global Health Scale 02/22/2022 Physical Health Percentile 22* Mental Health Percentile 13 Percentiles provide an indication of how the patient's score ranks in relation to the general population. Higher percentile rankings indicate better function/quality of life. 50th percentile is the average of the general population and indicates half of respondents had a worse score. Depression Screening: PHQ-9 02/22/2022 Score 12 PHQ-9 Self Harm 02/22/2022 Question 9 Not at all PHQ-9 Self-Harm (Item 9) response options: 0 Not at all 1 Several days 2 More than half the days 3 Nearly every day PHQ-9 Levels: 0-4 No - mild depression 5-9 Mild depression 10-14 Moderate depression 15-19 Moderately severe depression 20-27 Severe depression There is no problem list on file for this patient. No past medical history on file. No past surgical history on file. Social History Tobacco Use Smoking status: Former Types: Cigarettes Smokeless tobacco: Never Substance Use Topics Alcohol use: Yes No family history on file. ALLERGIES Not on File CURRENT MEDICATIONS: buspirone HCl (BUSPAR ORAL) gabapentin (NEURONTIN) 100 mg capsule Fluorouracil 5 % cream apply to THE NOSE AND RIGHT CHEEK TWICE DAILY FOR 2 WEEKS triamcinolone acetonide (KENALOG) 0.1 % cream apply to affected area OF THE BODY TWICE DAILY FOR 2 WEEKS THEN H... (REFER TO PRESCRIPTION NOTES). REVIEW OF SYSTEMS: PAIN ASSESSMENT: See HPI. GENERAL: Denies fever, chills malaise and weight loss. HEENT: No recent change in vision or hearing. CARDIOVASCULAR: Denies chest pain, history of A-fib, valvular disease, or pacemaker/ICD. RESPIRATORY: Denies SOB, sputum production, and hemoptysis. GI: Denies GI ulcers, inflammatory disease, or liver disease. : Denies change in frequency or urgency, kidney disease, and burning with urination. MUSCULOSKELETAL: Positive for injury and joint pain SKIN: Denies rash or itching. PSYCHOLOGICAL: Denies uncontrolled depression or anxiety. NEURO: Denies CVA, seizures, headaches. ENDOCRINE: Denies diabetes, thyroid disease. HEMATOLOGY/LYMPHOLOGY: Denies cancer, bleeding or clotting disorders, anemia,and DVT's. ALLERGIC/IMMUNOLOGICAL: Denies risks for infection, or recent MRSA infections. OBJECTIVE: PHYSICAL EXAM BP 135/51 Pulse 78 Resp 14 Ht 158.8 cm (5' 2.5) Wt 42.6 kg (94 lb) SpO2 100% BMI 16.92kg/m GENERAL APPEARANCE: Thin. NEURO PSYCH: Patient oriented to person, place, and time. Mood pleasant. Benign affect. CARDIOVASCULAR: Palpable pulses. No edema noted. No varicosities. SKIN: Head, neck, trunk, and extremities dry, intact and without lesions. LYMPHATICS: Groin exam deferred. MUSCULOSKELETAL VISUAL INSPECTION CERVICAL: WNL THORACIC: WNL LUMBAR: WNL PALPATION: SPINOUS PROCESS: No pain. PARASPINALS: No pain. Pain at posterior left hip girdle, marlene obtruator internus SPINE ROM: LUMBAR ROM: Full ROM Without Pain MUSCLE BULK: Normal and symmetrical in the upper & lower extremities. MUSCLE TONE: Normal. MOTOR: 5/5 in all muscle groups. SENSORY: Normal sensory exam GAIT: Normal. REFLEXES: +2 to bilateral U/L extremities. HIP ROM: Abnormal . Pain at end range of hip flexion and internal rotation, + FABERs ASSESSMENT/PLAN (M25.552) Pain in left hip (primary encounter diagnosis) Comment: Suspect tendon injury. She defers mri. Plan: CONSULT TO PHYSICAL THERAPY, XR HIP GENERAL 3V PELV/AP/LAT LEFT Xray will rule out osseous injury. She will start pt for myofascial treatment. I will see her back in 6 weeks. I spent a total of 49 minutes on the date of the service which included preparing to see the patient, [id number] patient care, completing clinical documentation, performing a medically appropriate examination, counseling and educating the patient/family/caregiver, and ordering medications, tests,or procedures. SIGNATURE: Ame Armenta DO PATIENT NAME: Radha Marcus Nurse DATE: February 25, 2022 TIME: 8:45 PM documented in this encounterF[facility]-2022 NoteHNO ID: [id number] Author: RT Guru(Jaret) Service: Nuclear Medicine Author Type: Technologist Type: Progress Notes Filed: 02/25/2022 11:23 AM Note Text: Radiology Service Progress Note PATIENT NAME: Radha Marcus Nurse DATE OF SERVICE: February 25, 2022 TIME: 11:14 AM PATIENT IDENTITY VERIFICATION COMPLETED USING TWO (2) IDENTIFIERS: Name and Date of confirmed by patient verbally. FALL SCREENING: Has the patient had 2 falls in the last year or 1 fall with injury or currently using an Ambulatory Assistive Device (Walker, Cane, Wheelchair, Crutches, etc.)? No PATIENT GENDER DATA: Female. status: : No status: NO. PATIENT RELEVANT IMPLANT DATA REVIEWED: Not Applicable RADIOLOGY DEPARTMENT: General X-ray: Exam(s) Completed: Pelvis X-Ray: Pelvis with Hip Left PERIPHERAL IV DATA: Not applicable SIGNED BY: RT Guru(R) February 25, 2022 11:14 [facility]09-22-2022 History of Present illness Narrative* RT Guru(R) - 02/25/2022 11:00 AM EDT Radiology Service Progress Note PATIENT NAME: Radha Abad DATE OF SERVICE: February 25, 2022 TIME: 11:14 AM PATIENT IDENTITY VERIFICATION COMPLETED USING TWO (2) IDENTIFIERS: Name and Date of confirmedby patient verbally. FALL SCREENING: Has the patient had 2 falls in the last year or 1 fall with injury or currently using an Ambulatory Assistive Device (Walker, Cane, Wheelchair, Crutches, etc.)? No PATIENT GENDER DATA: Female. status: : No status: NO. PATIENT RELEVANT IMPLANT DATA REVIEWED: Not Applicable RADIOLOGY DEPARTMENT: General X-ray: Exam(s) Completed: Pelvis X-Ray: Pelvis with Hip Left PERIPHERAL IV DATA: Not applicable SIGNED BY: RT Guru(R) February 25, 2022 11:14 AM documented in this encounterF[facility]* Diagnosis Pain in left hip- Primary Pain in joint, pelvic region and thigh documented in this encounter [facility]* Diagnosis Pain in left hip Pain in joint, pelvic region and thigh [facility] Diagnosis Pain in left hip- Primary Pain in joint, pelvic region and thigh documented [facility] this [facility]* Diagnosis Pain in left hip- Primary Pain in joint, pelvic region and thigh [facility] Diagnosis Pain in left hip- Primary Pain in joint, pelvic region and thigh documented [facility] this [facility]* Diagnosis Pain in left hip- Primary Pain in joint, pelvic region and thigh [facility] Diagnosis Pain in left hip- Primary Pain in joint, pelvic region and thigh [facility] Diagnosis Pain in left hip- Primary Pain in joint, pelvic region and thigh [facility] Diagnosis Pain in left hip- Primary Pain in joint, pelvic region and thigh [facility]* Diagnosis Pain in left hip- Primary Pain in joint, pelvic region and thigh documented [facility] this [facility]* Diagnosis Pain in left hip- Primary Pain in joint, pelvic region and thigh [facility]* Diagnosis Onset Date Resolution Status Acute confusion acute Encephalopathy acute acute [facility] Work Phone: Evaluation note* Diagnosis Onset Date Resolution Status Acute confusion acute Encephalopathy acute acute Alcohol abuse acute Anxiety acute Debility acute Encephalopathy acute acute Hyponatremia acute Seizure disorder acute Stroke acute Subclinical hypothyroidism [facility] Work Phone: Evaluation note* Diagnosis Onset Date Resolution Status Acute confusion resolved Encephalopathy acute resolve d Alcohol abuse acute Anxiety acute Debility acute Hyponatremia acute Seizure disorder acute Stroke acute Subclinical hypothyroidism a cute Encephalopathy acute resolve d Seizure disorder acute [facility] Work Phone: Evaluation note* Diagnosis Onset Date Resolution Status Acute confusion resolved Encephalopathy acute resolve d Alcohol abuse acute Anxiety acute Debility acute Hyponatremia acute Stroke acute Subclinical hypothyroidism a cute Encephalopathy acute resolve d Acute ischemic stroke acute Epilepsy acute [facility] Work Phone: Evaluation note* Diagnosis Onset Date Resolution Status Epilepsy resolved Stroke resolved Skin tear of right hand without complication acute [facility] Work Phone: Evaluation noteNo assessment information available [facility] Work Phone: Reason for referral (narrative)* Diagnostic Procedure Only (Routine) - Closed Specialty Diagnoses / Procedures Referred By Rhys rubalcava Referred To Contact XR IMAGING Diagnoses Pain in left hip Procedures XR HIP GENERAL 3V PELV/AP/LAT LEFT RADEX HIP UNILATERAL WITH PELVIS 2-3 VIEWS Ame Armenta DO [address] [facility] [place] [address] Xr Imaging Referral ID Status Reason Start Date Expiration Date V isits Requested Visits Authorized [id number] Closed Auto-Generate d Referral 02/24/2022 03/26/2023 1 1 * Transition of Care (Routine) - Ref Not Required Specialty Diagnoses / Procedures Referred By Contac t Referred To Contact Physical Therapy Diagnoses Pain in left hip Procedures CONSULT TO PHYSICAL THERAPY Ame Armenta DO [address] [place] [address] Referral ID Status Reason Start Date Expiration Date Visits Requested Visits Authorized [id number] Ref Not Required PCP Requested Referral 02/24/2022 02/24/2023 [address] [facility] for referral (narrative)* Diagnostic Procedure Only (Routine) - Closed Specialty Diagnoses / Procedures Referred By Contac t Referred To Contact XR IMAGING Diagnoses Pain in left hip Procedures XR HIP GENERAL 3V PELV/AP/LAT LEFT RADEX HIP UNILATERAL WITH PELVIS 2-3 VIEWS Ame Armenta DO [address] [place] [address] Xr Imaging Referral ID Status Reason Start Date Expiration Date V isits Requested Visits Authorized [id number] Closed Auto-Generate d Referral 02/24/2022 03/26/2023 [address] [facility] for referral (narrative)No reason for referral information [facility]WS[facility] Work Phone: reason for visit Narrative* Diagnostic Procedure Only (Routine) - Closed Specialty Diagnoses / Procedures Referred By Contac t Referred To Contact XR IMAGING Diagnoses Pain in left hip Procedures XR HIP GENERAL 3V PELV/AP/LAT LEFT RADEX HIP UNILATERAL WITH PELVIS 2-3 VIEWS Ame Armenta DO [address] [place] [address] Xr Imaging Referral ID Status Reason Start Date Expiration Date V isits Requested Visits Authorized [id number] Closed Auto-Generate d Referral 02/24/2022 03/26/2023 1 1 [facility] Summary Purpose Family History No Family History Records FoundNo Family History Records Found Advance Directives No Advanced Directives Records Found Advance Directive Response Recorded Date/ Time Living Will Yes August 16, 2022 12:59pm Power of [employer] Yes August 16 12:59pm Name of Medical Power of [employer] stephen /ita paredes August 16, 2022 12:59pm Advance Directive Response Recorded Date/ Time Name of Medical Power of [employer] Stephen Nurse August 16, 2022 5:17pm Living Will Yes August 16, 2022 5:17pm Power of [employer] Yes August 16 5:17pm Advance Directive Response Recorded Date/ Time Name of Medical Power of [employer] Stephen Nurse August 16, 2022 5:17pm Name of Medical Power of [employer] Stephen Nurse August 25, 2022 2:22pm Living Will Yes August 25, 2022 2:22pm Power of [employer] Yes August 25 2:22pm Advance Directive Response Recorded Date/ Time Living Will Yes August 25, 2022 2:22pm Power of [employer] Yes August 25 2:22pm Advance Directive Response Recorded Date/ Time Do you have a Healthcare Power of [employer]? Yes October 25, 2024 11:44pm Name of Medical Power of [employer] --ford paredes October 25, 2024 11:44pm Chief Complaint and Reason for Visit Chief Complaint ACUTE ENCEPHALOPATHY ,ACUTE CONFUSION Reason for Visit Acute confusion Encephalopathy acute Chief Complaint ACUTE ENCEPHALOPATHY ,ACUTE CONFUSION ACUTE ENCEPHALOPATHY,ACUTE CONFUSION ACUTE ENCEPHALOPATHY,ACUTE CONFUSION ACUTE ENCEPHALOPATHY,ACUTE CONFUSION ACUTE ENCEPHALOPATHY,ACUTE CONFUSION ACUTE ENCEPHALOPATHY,ACUTE CONFUSION ACUTE ENCEPHALOPATHY,ACUTE CONFUSION ACUTE ENCEPHALOPATHY,ACUTE CONFUSION Reason for Visit Acute confusion Encephalopathy acute Chief Complaint ACUTE ENCEPHALOPATHY ,ACUTE CONFUSION ACUTE ENCEPHALOPATHY,ACUTE CONFUSION ACUTE ENCEPHALOPATHY,ACUTE CONFUSION ACUTE ENCEPHALOPATHY,ACUTE CONFUSION ACUTE ENCEPHALOPATHY,ACUTE CONFUSION ACUTE ENCEPHALOPATHY,ACUTE CONFUSION ACUTE ENCEPHALOPATHY,ACUTE CONFUSION ACUTE ENCEPHALOPATHY,ACUTE CONFUSION CVA Reason for Visit Acute confusion Encephalopathy acute Alcohol abuse Anxiety Debility Encephalopathy acute Hyponatremia Seizure disorder Stroke Subclinical hypothyroidism Chief Complaint ACUTE ENCEPHALOPATHY ,ACUTE CONFUSION ACUTE ENCEPHALOPATHY,ACUTE CONFUSION ACUTE ENCEPHALOPATHY,ACUTE CONFUSION ACUTE ENCEPHALOPATHY,ACUTE CONFUSION ACUTE ENCEPHALOPATHY,ACUTE CONFUSION ACUTE ENCEPHALOPATHY,ACUTE CONFUSION ACUTE ENCEPHALOPATHY,ACUTE CONFUSION ACUTE ENCEPHALOPATHY,ACUTE CONFUSION CVA ACUTE LEFT TEMPORAL CVA EORDER Reason for Visit Acute confusion Encephalopathy acute Alcohol abuse Anxiety Debility Hyponatremia Seizure disorder Stroke Subclinical hypothyroidism Encephalopathy acute Seizure disorder Chief Complaint ACUTE ENCEPHALOPATHY ,ACUTE CONFUSION ACUTE ENCEPHALOPATHY,ACUTE CONFUSION ACUTE ENCEPHALOPATHY,ACUTE CONFUSION ACUTE ENCEPHALOPATHY,ACUTE CONFUSION ACUTE ENCEPHALOPATHY,ACUTE CONFUSION ACUTE ENCEPHALOPATHY,ACUTE CONFUSION ACUTE ENCEPHALOPATHY,ACUTE CONFUSION ACUTE ENCEPHALOPATHY,ACUTE CONFUSION CVA ACUTE LEFT TEMPORAL CVA EORDER EPILEPSY Reason for Visit Acute confusion Encephalopathy acute Alcohol abuse Anxiety Debility Hyponatremia Stroke Subclinical hypothyroidism Encephalopathy acute Acute ischemic stroke Epilepsy Chief Complaint ACUTE ENCEPHALOPATHY ,ACUTE CONFUSION ACUTE ENCEPHALOPATHY,ACUTE CONFUSION ACUTE ENCEPHALOPATHY,ACUTE CONFUSION ACUTE ENCEPHALOPATHY,ACUTE CONFUSION ACUTE ENCEPHALOPATHY,ACUTE CONFUSION ACUTE ENCEPHALOPATHY,ACUTE CONFUSION ACUTE ENCEPHALOPATHY,ACUTE CONFUSION ACUTE ENCEPHALOPATHY,ACUTE CONFUSION CVA ACUTE LEFT TEMPORAL CVA EORDER EPILEPSY EORDER Reason for Visit Acute confusion Encephalopathy acute Alcohol abuse Anxiety Debility Hyponatremia Stroke Subclinical hypothyroidism Encephalopathy acute Acute ischemic stroke Epilepsy Chief Complaint 4 M FU hand injury INT LABS Reason for Visit Epilepsy Stroke Skin tear of right hand without complication Chief Complaint Admit Date UGIB, MELANOTIC STOOL, ABDOMINAL PAIN AN D ADR TO October 25, 2024 11:20pm UGIB, MELANOTIC STOOL, ABDOMINAL PAIN AN D ADR TO October 26, 2024 7:53am UGIB, MELANOTIC STOOL, ABDOMINAL PAIN AN D ADR TO October 26, 2024 3:46pm UGIB, MELANOTIC STOOL, ABDOMINAL PAIN AN D ADR TO October 27, 2024 7:05am UGIB, MELANOTIC STOOL, ABDOMINAL PAIN AN D ADR TO October 28, 2024 9:14am Reason for Visit Admit Date Acute anemia October 25, 2024 11:20 pm Acute gastrointestinal bleeding October 11:20pm Adverse drug reaction October 25, 2024 11: 20pm Hypokalemia October 25, 2024 11:20 pm Hyponatremia October 25, 2024 11:20 pm Iron deficiency anemia October 25, 2024 11 :20pm Melena October 25, 2024 11:20 pm Orthostatic hypotension October 25, 2024 1 1:20pm Peptic ulcer disease October 25, 2024 11:2 0pm Syncope and collapse October 25, 2024 11:2 0pm Thrombocytopenia October 25, 2024 11:20 pm Upper GI bleed October 25, 2024 11:20 pm Additional Source Comments Source Comments (unrecognize d section and content) In the event this informatio n is protected by the Federal Confidentiality of Alcohol and Drug Abuse Patient Records regulations: The Federal rules restrict any use of the information to criminally investigate or prosecute any alcohol or drug abuse patient.[facility] the event this information is protected by the Federal Confidentiality of Alcohol and Drug Abuse Patient Records regulations: The Federal rules restrict any use of the information to criminally investigate or prosecute any alcohol or drug abuse patient.[facility] the event this information is protected by the Federal Confidentiality of Alcohol and Drug Abuse Patient Records regulations: The Federal rules restrict any use of the information to criminally investigate or prosecute any alcohol or drug abuse patient.[facility] the event this information is protected by the Federal Confidentiality of Alcohol and Drug Abuse Patient Records regulations: The Federal rules restrict any use of the information to criminally investigate or prosecute any alcohol or drug abuse patient.[facility] the event this information is protected by the Federal Confidentiality of Alcohol and Drug Abuse Patient Records regulations: The Federal rules restrict any use of the information to criminally investigate or prosecute any alcohol or drug abuse patient.[facility] the event this information is protected by the Federal Confidentiality of Alcohol and Drug Abuse Patient Records regulations: The Federal rules restrict any use of the information to criminally investigate or prosecute any alcohol or drug abuse patient.[facility] the event this information is protected by the Federal Confidentiality of Alcohol and Drug Abuse Patient Records regulations: The Federal rules restrict any use of the information to criminally investigate or prosecute any alcohol or drug abuse patient.[facility] the event this information is protected by the Federal Confidentiality of Alcohol and Drug Abuse Patient Records regulations: The Federal rules restrict any use of the information to criminally investigate or prosecute any alcohol or drug abuse patient.[facility] the event this information is protected by the Federal Confidentiality of Alcohol and Drug Abuse Patient Records regulations: The Federal rules restrict any use of the information to criminally investigate or prosecute any alcohol or drug abuse patient.[facility] the event this information is protected by the Federal Confidentiality of Alcohol and Drug Abuse Patient Records regulations: The Federal rules restrict any use of the information to criminally investigate or prosecute any alcohol or drug abuse patient.[facility] the event this information is protected by the Federal Confidentiality of Alcohol and Drug Abuse Patient Records regulations: The Federal rules restrict any use of the information to criminally investigate or prosecute any alcohol or drug abuse patient.[facility] Reason for Visit (unrecogniz ed section and content) Reason Comments PT Progress Note PT Discharge Specialty Diagnoses / Procedures Referred By Contac t Referred To Contact PHYSICAL THERAPY Diagnoses Pain in left hip [M25.552] Procedures physical Therapy Ame Armenta DO [address] [place] [address] [facility] [address] [place] [address] Referral ID Status Reason Start Date Expiration Date V isits Requested Visits Authorized [id number] Authorized 06/06/2021 06/05/2022 99 99 Reason Comments Physical Therapy Reason Comments PT Progress Note Reason Comments New Patient Reason Comments PT Eval Specialty Diagnoses / Procedures Referred By Contac t Referred To Contact Physical Therapy Diagnoses Pain in left hip Procedures CONSULT TO PHYSICAL THERAPY Ame Armenta DO [address] [place] [address] Referral ID Status Reason Start Date Expiration Date Visits Requested Visits Authorized [id number] Ref Not Required PCP Requested Referral 02/24/2022 02/24/2023 1 1 Reason Comments Left Hip Pain INFORMATION SOURCE (unrecogn ized section and content) DATE CREATED AUTHOR 05/04/2022 [facility] DATE CREATED AUTHOR AUTHOR'S ORGANIZ ATION 11/08/2024 [facility] Care Teams (unrecognized sec tion and content) Team Status: Active Member Role Status Dates Out of Town Doctor Family Provider Active Chata Barton DO Primary Care Provider Active Team Status: Active Member Role Status Dates Dr. Kalin Macedo DO Emergency Provider Active Chata Barton DO Primary Care Provider Active Dr. Aidee Rico MD Admit Provider, Attending Provid er Active Team Status: Active Member Role Status Dates Dr. Kalin Macedo DO Emergency Provider Active Chata Barton DO Primary Care Provider Active Dr. Aidee Rico MD Admit Provider, Other Provider A ctive Dr. Jules Shah MD Attending Provider, Other Provider Active Team Status: Active Member Role Status Dates Chata Barton DO Primary Care Provider Active Dr. Sergio Mcfarland MD Attending Provider Active Team Status: Active Member Role Status Dates Dr. Kalin Macedo DO Emergency Provider Active Chata Barton DO Primary Care Provider Active Dr. Aidee Rico MD Admit Provider, Other Provider A ctive Dr. Sandy Cannon MD Attending Provider, Other Prov ider Active Dr. Jules Shah MD Other Provider Active Team Status: Inactive Member Role Status Dates Dr. Kalin Macedo DO Emergency Provider Active Chata Barton DO Primary Care Provider Active Dr. Aidee Rico MD Admit Provider, Other Provider A ctive Dr. Sandy Cannon MD Attending Provider Active Dr. Jules Shah MD Other Provider Active Team Status: Inactive Member Role Status Dates Chata Barton DO Primary Care Provider Active Dr. Jos Hooks MD Admit Provider, Attending Provid er Active Team Status: Inactive Member Role Status Dates Chata Barton , DO Primary Care Provider, Referring Provider Active Dr. Geovany Mcneal MD Attending Provider Active Team Status: Inactive Member Role Status Dates Chata Barton DO Primary Care Provider Active Dr. Geovany Mcneal MD Attending Provider, Referring Provider Active Team Status: Inactive Member Role Status Dates Chata Barton , DO Primary Care Provi maggi, Attending Provider, Referring Provider Active Team Status: Inactive Member Role Status Dates Chata Barton , Primary Care Provider, Attending Provider Active Team Status: Active Member Role Status Dates Out of [facility] Doctor Family Provider Active Jamal Johns MD Primary Care Provider Active Team Status: Inactive Member Role Status Dates Chata Barton DO Primary Care Provider, Referring Provider Active Fran Cortez PA, PA Attending Provider Active Team Status: Inactive Member Role Status Dates Jamal Johns MD Primary Care Provide r, Attending Provider, Referring Provider Active Team Status: Inactive Member Role Status Janeth Johns MD Primary Care Provider Active St art: September 25, 2024 End: September 25, 2024 Dr. Jaleel Farfan MD Attending Provider Active Start: September 25, 2024 End: September 25, 2024 Dr. Jaleel Farfan MD Referring Provider Active Start: September 25, 2024 End: September 25, 2024 Team Status: Active Member Role Status Janeth Johns MD Primary Care Provider Active Team Status: Inactive Member Role Status Janeth Johns MD Primary Care Provider Active St art: October 25, 2024 End: October 28, 2024 Dr. Terrance Oswald MD Referring Provider Active Sta rt: October 25, 2024 End: October 28, 2024 Dr. Terrance Oswald MD Emergency Provider Active Sta rt: October 25, 2024 End: October 28, 2024 Dr. Pastor Hernandez DO Admit Provider Active Start: October 25, 2024 End: October 28, 2024 Dr. Pastor de Kishor , DO Other Provider Active Start: October 25, 2024 End: October 28, 2024 Dr. Laya Crisostomo , DO Attending Provider Active S tart: October 25, 2024 End: October 28, 2024 Team Status: Active Member Role Status Janeth Johns MD Primary Care Provider Active St art: October 26, 2024 Dr. Terrance Oswald MD Referring Provider Active Sta rt: October 26, 2024 Dr. Terrance Oswald MD Emergency Provider Active Sta rt: October 26, 2024 Dr. Pastor Hernandez , DO Admit Provider Active Start: October 26, 2024 Dr. Pastor Hernandez , DO Other Provider Active Start: October 26, 2024 Dr. Laya Crisostomo , DO Attending Provider Active S tart: October 26, 2024 Dr. Laya Crisostomo , DO Other Provider Active Start : October 26, 2024 Team Status: Active Member Role Status Janeth Johns MD Primary Care Provider Active St art: October 26, 2024 Dr. Onesimo Samayoa MD Attending Provider Activ e Start: October 26, 2024 Team Status: Active Member Role Status Janeth Johns MD Primary Care Provider Active St art: October 26, 2024 Dr. Terrance Oswald MD Referring Provider Active Sta rt: October 26, 2024 Dr. Terrance Oswald MD Emergency Provider Active Sta rt: October 26, 2024 Dr. Pastor Hernandez , DO Admit Provider Active Start: October 26, 2024 Dr. Pastor Hernandez , DO Other Provider Active Start: October 26, 2024 Dr. Laya Crisostomo , DO Other Provider Active Start : October 26, 2024 Dr. Aurelio Rivera , Attending Provider Active Start: October 26, 2024 Team Status: Active Member Role Status Janeth Johns MD Primary Care Provider Active St art: October 27, 2024 Dr. Terrance Oswald MD Referring Provider Active Sta rt: October 27, 2024 Dr. Terrance Oswald MD Emergency Provider Active Sta rt: October 27, 2024 Dr. Pastor Hernandez , DO Admit Provider Active Start: October 27, 2024 Dr. Pastor Hernandez , DO Other Provider Active Start: October 27, 2024 Dr. Laya Crisostomo DO Attending Provider Active S tart: October 27, 2024 Dr. Laya Crisostomo DO Other Provider Active Start : October 27, 2024 Team Status: Active Member Role Status Dates Jamal Johns MD Primary Care Provider Active St art: October 28, 2024 Dr. Terrance Oswald MD Referring Provider Active Sta rt: October 28, 2024 Dr. Terrance Oswald MD Emergency Provider Active Sta rt: October 28, 2024 Dr. Pastor Hernandez DO Admit Provider Active Start: October 28, 2024 Dr. Pastor Hernandez DO Other Provider Active Start: October 28, 2024 Dr. Laya Crisostomo DO Attending Provider Active S tart: October 28, 2024 Dr. Laya Crisostomo DO Other Provider Active Start : October 28, 2024 Goals (unrecognized section and content) Goals may be documented in a n alternate sectionGoals may be documented in an alternate sectionGoals may be documented in an alternate section FOR RECORDS PERTAINING TO PATIENTS WHO ARE OR HAVE BEEN ENROLLED IN A CHEMICAL DEPENDENCY/SUBSTANCEABUSE PROGRAM, SOME INFORMATION MAY BE OMITTED. This clinical summary was aggregated from multiple sources. Caution should be exercised in using it in the provision of clinical care. This summary normalizes information from multiple sources, and as a consequence, information in this document may materially change the coding, format and clinical context of patient data. In addition, data may be omitted in some cases. CLINICAL DECISIONS SHOULD BE BASED ON THE PRIMARY CLINICAL RECORDS. [facility]. provides no warranty or guarantee of the accuracy or completeness of information in this document.
[2024-11-23 07:13] LABS: Absolute Lymphocyte Count 0.91 X10^3/uL (0.83-4.51); Absolute Neutrophil Count 1.7 X10^3/uL (2.0-7.7); Basophil# 0.04 X10^3/uL; Basophil% 1.1 % (0-1); Eosinophil# 0.22 X10^3/uL; Eosinophils% 6.2 % (0-5); Hematocrit 40.4 % (37-47); Hemoglobin 13.4 g/dL (12.0-15.0); Lymphocyte # 0.91 X10^3/ul (0.83-4.51); Lymphocyte % 25.7 % (19-41); Mean Corp Hgb Conc 33.2 g/dL (32-36); Mean Corpuscular Hgb 30.9 pg (27.0-32.0); Mean Corpuscular Volume 93.3 fL (81-99); Mean Platelet Vol. 10.1 fl (6.2-12.0); Monocyte# 0.62 X10^3/uL; Monocyte% 17.5 % (0-10); NRBC Flagged by Analyzer 0 % (0-5); Neutrophil # 1.74 X10^3/uL (2.7-7.7); Neutrophil % 49.2 % (47-70); Platelet Count 152 K/mm3 (150-450); RBC Distribution Width CV 12.9 % (11.6-14.6); RBC Distribution Width SD 44.3 fl (35.1-43.9); Red Blood Count 4.33 M/mm3 (4.2-5.4); White Blood Count 3.5 K/mm3 (4.4-11.0)
[2024-11-23 07:36] LABS: AST(SGOT) 40 U/L (<=31); Alanine Aminotransfer ALT/SGPT 44 U/L (<=34); Albumin, Serum 4.2 g/dL (3.4-4.8); Alkaline Phosphatase 110 U/L (35-104); Anion Gap 9 (5-15); BUN 10 mg/dL (4-19); BUN/Creat Ratio 21.5 RATIO (10-20); Calcium,Total 8.9 mg/dL (7.6-11.0); Carbon Dioxide 30.2 mmol/L (21.0-32.0); Chloride 100 mmol/L (98-108); Cholesterol 126 mg/dL (<=200); Creatinine, Serum 0.46 mg/dL (0.70-1.20); EST Glomerular Filtration Rate 96 (>60); Globulin 2.1 g/dL (2.2-4.2); Glucose 93 mg/dL (70-99); High Density Lipoprotein 77 mg/dL; Low Density Lipoprotein Calc. 40 mg/dL; Potassium 4.3 mmol/L (3.3-5.1); Protein, Total 6.4 g/dL (5.9-8.4); Sodium Level 139 mmol/L (133-145); Total Bilirubin 0.43 mg/dL (0.00-1.30); Triglycerides 43 mg/dL; Very Low Density Lipoprotein 9 mg/dL (5-40); cholesterol:hdl ratio screen 1.63
== END | disposition home or self-care (01) ==
LOC: LAB 06:45
PROVIDERS: PCP Family Medicine; Referring Provider Dermatology; Visit Provider Dermatology
DX: C44.729 Squamous cell carcinoma of skin of left lower limb, including hip (principal); Z79.899 Other long term (current) drug therapy
CPT/HCPCS: 36415; 80053; 80061; 85025

== ENCOUNTER → 2025-05-21 | Outpatient (CLI) | payer MEDICARE, SELFPAY ==
[2025-05-21 17:39] LABS: AST(SGOT) 50 U/L (<=31); Alanine Aminotransfer ALT/SGPT 56 U/L (<=34); Albumin, Serum 4.6 g/dL (3.4-4.8); Alkaline Phosphatase 114 U/L (35-104); Anion Gap 12 (5-15); BUN 14 mg/dL (4-19); BUN/Creat Ratio 29.2 RATIO (10-20); Calcium,Total 8.9 mg/dL (7.6-11.0); Carbon Dioxide 28.7 mmol/L (21.0-32.0); Chloride 88 mmol/L (98-108); Globulin 1.9 g/dL (2.2-4.2); Glucose 78 mg/dL (70-99); Potassium 3.9 mmol/L (3.3-5.1)
== END | disposition home or self-care (01) ==
LOC: LAB 15:29
PROVIDERS: PCP Family Medicine; Referring Provider Family Medicine; Visit Provider Family Medicine
DX: Z13.21 Encounter for screening for nutritional disorder (principal); E03.9 Hypothyroidism, unspecified; E87.6 Hypokalemia
CPT/HCPCS: 36415; 80053; 84443

== ENCOUNTER → 2025-05-27 | Outpatient (CLI) | payer MEDICARE, SELFPAY ==
--- NOTE | 2025-05-27 14:48 | RAD_ITS ---
PROCEDURE: RIGHT RIBS UNI MIN 3V W/PA CHEST 05/27/2025 REASON FOR EXAM: RIGHT RIB PAIN. Patient fell. TECHNIQUE: Procedure Code: RADRIB Modality: DX Procedure: RIBS UNI MIN 3V W/PA CHEST COMPARISON: Chest radiograph dated 08/16/2022. FINDINGS: Fracture of the lateral aspect of the right 6th rib. Offset of the fracture fragments by approximately 5 mm. Adjacent lung and pleura are unremarkable. Calcified pleural plaque at the bilateral lung apices. Heart and mediastinum are normal. Aorta atherosclerotic and tortuous. RAD/Ribs Uni Min 3V w/PA Chest IMPRESSION: ACUTE RIGHT 6TH RIB FRACTURE LATERALLY. Reading Location: [place] [id number]
== END | disposition home or self-care (01) ==
LOC: RAD 14:45
PROVIDERS: PCP Family Medicine; Referring Provider Family Medicine; Visit Provider Family Medicine
DX: R07.89 Other chest pain (principal)
CPT/HCPCS: 71101